=== PATIENT | male | born 1995 | race Caucasian/White ===

== ENCOUNTER 2020-07-25 00:47 | Emergency (ER) | payer MEDICAID ==
[~2020-07-25] VITALS: Ht 193 cm; Wt 90.9 kg
[~2020-07-25 00:47] MED LIST: LURA80TA3 PO; NICO-668 BC; TRAZ-251 PO
[2020-07-25 00:48] VITALS: BP 128/63
[2020-07-25] MEDS ORDERED: OLANZapine 5mg rapidly disint. tablet PO ONE (01:30)
[2020-07-25] MEDS ORDERED: LORazepam 1 MG tablet PO ONE (01:30)
[2020-07-25] MEDS ORDERED: olanzapine 10mg tablet ONE (01:31)
[2020-07-25] MEDS ORDERED: LORazepam 1 MG tablet ONE (01:32)
--- NOTE | 2020-07-25 01:40 | NUR ---
PATIENT UNWILLING TO ANSWER QUESTIONS REQUARDING PURPOSE FOR BEING AT THE HOSPITAL AND NEED FOR MEDICAL/ PSYCHIATRIC CARE.
--- NOTE | 2020-07-25 02:15 | NUR ---
PATIENT REFUSING ALL MEDICATIONS, MD AWARE
[2020-07-25 02:42] LABS: BASOPHILS # (AUTO) 0.1 X10'3 (0-0.2); BASOPHILS % (AUTO) 0.5 % (0-1); EOSINOPHILS % (AUTO) 0.1 % (0-6); HEMATOCRIT 44.7 % (42.0-52.0); HEMOGLOBIN 14.9 g/dl (14.0-17.9); LYMPHOCYTES # (AUTO) 2.4 X10'3 (1.1-4.8); LYMPHOCYTES % (AUTO) 19.2 % (21-51); MEAN CORPUSCULAR HEMOGLOBIN 30.1 PG (27.0-31.0); MEAN CORPUSCULAR HGB CONC 33.3 g/dL (33.0-36.5); MEAN CORPUSCULAR VOLUME 90.2 FL (78-98); MONOCYTES # (AUTO) 0.6 X10'3 (0-0.9); MONOCYTES % (AUTO) 4.8 % (2-12); NEUTROPHILS # (AUTO) 9.5 X10'3 (1.8-7.7); NEUTROPHILS % (AUTO) 75.4 % (42-75); PLATELET COUNT 201 X10'3 (140-440); RED BLOOD COUNT 4.96 X10'6 (4.70-6.10); RED CELL DISTRIBUTION WIDTH 14.2 % (11.5-14.5); WHITE BLOOD COUNT 12.6 X10'3 (4.5-11.0)
[2020-07-25 02:54] LABS: ALANINE AMINOTRANSFERASE 32 U/L (12-78); ALBUMIN 4.6 G/DL (3.4-5.0); ALBUMIN/GLOBULIN RATIO 1.4 (1.1-1.5); ALKALINE PHOSPHATASE 113 IU/L (46-116); ANION GAP 11 (8-16); ASPARTATE AMINO TRANSFERASE 16 U/L (10-37); BILIRUBIN,TOTAL 0.5 MG/DL (0.1-1.0); BLOOD UREA NITROGEN 16 MG/DL (7-18); BUN/CREATININE RATIO 16.3 (5.4-32.0); CHLORIDE 104 MMOL/L (99-107); CREATININE 0.98 MG/DL (0.60-1.10); GLUCOSE 113 MG/DL (70-104); POTASSIUM 3.8 MMOL/L (3.5-5.1); SODIUM 142 MMOL/L (135-145); TOTAL CARBON DIOXIDE 27.2 MMOL/L (24-32); TOTAL PROTEIN 7.8 G/DL (6.4-8.2); eGFR > 90 ML/MIN
[2020-07-25 03:01] LABS: URINE AMPHETAMINE SCREEN NEGATIVE (Neg); URINE BARBITUATE SCREEN NEGATIVE (Neg); URINE BENZODIAZEPINES SCREEN NEGATIVE (Neg); URINE CANNABINOID SCREEN NEGATIVE (Neg); URINE COCAINE SCREEN NEGATIVE (Neg); URINE METHADONE SCREEN NEGATIVE (Neg); URINE OPIATE SCREEN NEGATIVE (Neg); URINE PHENCYCLIDINE SCREEN NEGATIVE (Neg)
[2020-07-25 03:02] LABS: ETHANOL < 0.010 GM/DL (0.0-0.010)
[2020-07-25] MEDS ORDERED: LURA80TA3 PO (04:00)
[2020-07-25] MEDS ORDERED: NO HOME MEDS (04:02)
--- NOTE | 2020-07-25 04:06 | NUR ---
Patient is brought to bed 26 from [facility]. Patient presents with paranoia, patient tells this automatic typewriter inspector that he does not know why he is here. The patient is given a phone call to his boss to tell him that he is in the hospital for a few days and can't come to work. The patient sits straight up in bed, he stares toward the nursing station. The patient is given warm blankets, informed where the bathrooms and nursing station are at, he is given warm blankents. The patient is advised that breakfast is at 0800 hours. He is also advised that he will be evaluated by mental health later in the day.
--- NOTE | 2020-07-25 04:50 | NUR ---
Patient gets out of bed and stands staring at the sleeping patient in bed 25. He was then redirected back to bed. Patient sits and stares at nursing station staff.
--- NOTE | 2020-07-25 05:03 | NUR ---
Patient is now laying supine with his blankets covering him. Patient continues to look around.
--- NOTE | 2020-07-25 05:32 | NUR ---
Important phone numbers: Jae Easton (Patients father.) [phone] [facility], Fruit Harvester Machine OperatorJahaira: [phone]
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
--- NOTE | 2020-07-25 07:00 | NUR ---
PT IS RESTING
--- NOTE | 2020-07-25 08:00 | NUR ---
PT IS RESTING
--- NOTE | 2020-07-25 08:30 | NUR ---
FAXED PACKET TO [facility]
--- NOTE | 2020-07-25 09:00 | NUR ---
PT IS RESTING. NO ISSUES AT THIS TIME
--- NOTE | 2020-07-25 10:00 | NUR ---
PT IS RESTING
--- NOTE | 2020-07-25 11:00 | NUR ---
PT IS RESTING
--- NOTE | 2020-07-25 12:00 | NUR ---
PT IS RESTING
--- NOTE | 2020-07-25 13:00 | NUR ---
PT IS RESTING
--- NOTE | 2020-07-25 14:43 | NUR ---
THERE WAS NO REASON TO KEEP THE PT ON A HOLD. HE DENIES ANY MENTAL HEALTH ISSUES. HE DENIES MEDICATION. HE HAS A RIDE, A HOTEL, A JOB AND MONEY TO SUPPORT HIMSELF.
== END 2020-07-25 14:50 ==
LOC: ER 00:48
DX: F41.9 Anxiety disorder, unspecified (principal); F32.9 Major depressive disorder, single episode, unspecified; F12.90 Cannabis use, unspecified, uncomplicated; F15.90 Other stimulant use, unspecified, uncomplicated
CPT/HCPCS: 36415; 80053; 80305; 80320; 84443; 85025; 99285

== ENCOUNTER 2020-09-13 11:04 | Emergency (ER) | payer MEDICAID ==
[~2020-09-13] VITALS: Ht 188 cm; Wt 84.4 kg
[~2020-09-13 11:04] MED LIST changes: -LURA80TA3 PO; -NICO-668 BC; +NO HOME MEDS; -TRAZ-251 PO
--- NOTE | 2020-09-13 11:16 | NUR ---
ANDIE, POISON CONTROL CONTACTED W/ FOLLOWING POC RECOMMENDATION: MONITOR FOR KIDNEY FAILURE & ACIDOSIS. PERFORM LABS: SERUM OSMOLALITY, CHEM CBC, ASA, TYLENOL, ETOH, UA DRUG & REPEAT IN Q4HRS. ASSESS ORAL CAVITY FOR TRJUILLO. PERFORM PO CHALLENGE. ADMINISTERED IV FLUIDS, ANTIEMETICS APPROPRIATE. Andie WILL FILE PESTICIDE INCIDENT REPORT D/T INGESTION OF BLEACH. SHE WILL F/U IN ~ 1 HR. edmd Fuller AND PRIMARY RN ELIZABETH UPDATED ON DATA.
[2020-09-13 11:29] LABS: BASOPHILS % (AUTO) 0.5 % (0-1); EOSINOPHILS # (AUTO) 0.1 X10'3 (0-0.9); EOSINOPHILS % (AUTO) 0.9 % (0-6); HEMATOCRIT 41.5 % (42.0-52.0); LYMPHOCYTES % (AUTO) 24.5 % (21-51); MEAN CORPUSCULAR HEMOGLOBIN 30.3 PG (27.0-31.0); MEAN CORPUSCULAR HGB CONC 33.7 g/dL (33.0-36.5); MEAN CORPUSCULAR VOLUME 89.8 FL (78-98); MEAN PLATELET VOLUME 8.5 FL (7.4-10.4); MONOCYTES # (AUTO) 0.6 X10'3 (0-0.9); MONOCYTES % (AUTO) 7.7 % (2-12); NEUTROPHILS # (AUTO) 5.5 X10'3 (1.8-7.7); NEUTROPHILS % (AUTO) 66.4 % (42-75); PLATELET COUNT 181 X10'3 (140-440); RED BLOOD COUNT 4.62 X10'6 (4.70-6.10); RED CELL DISTRIBUTION WIDTH 14.4 % (11.5-14.5); WHITE BLOOD COUNT 8.3 X10'3 (4.5-11.0)
--- NOTE | 2020-09-13 11:30 | NUR ---
patient's father Jae called to give information on the patient. The patient has a long history of mental health problems and recently was a patient in our behavioral health unit for 30 days. The patient is non-compliant with his psych. meds and has a history of Paranoid Schizophrenia. The patient is established with [facility]. The father and mother and sister witnessed him attempting to drink what the patient said was Bleach, Brake Fluid, Alcohol, Energy Drinks and Cold pills. The father removed a box storage worker from his hand. The father said the patient is a danger to himself and others. To reach the father his cell is [phone], and the mother Leigh's cell is [phone]
--- NOTE | 2020-09-13 11:41 | NUR ---
Per Poison control recommendations, the patient was given water to drink for a PO challenge. Pt tolerated a few sips of the water but reports it tastes like alcohol and is only willing to drink a few sips.
[2020-09-13 11:44] LABS: ALANINE AMINOTRANSFERASE 21 U/L (12-78); ALBUMIN 4.3 G/DL (3.4-5.0); ALBUMIN/GLOBULIN RATIO 1.3 (1.1-1.5); ALKALINE PHOSPHATASE 103 IU/L (46-116); ANION GAP 12 (8-16); ASPARTATE AMINO TRANSFERASE 21 U/L (10-37); BILIRUBIN,TOTAL 0.7 MG/DL (0.1-1.0); BLOOD UREA NITROGEN 13 MG/DL (7-18); CALCIUM 8.9 MG/DL (8.5-10.1); CHLORIDE 103 MMOL/L (99-107); CREATININE 1.08 MG/DL (0.60-1.10); ETHANOL 0.013 GM/DL (0.0-0.010); GLUCOSE 101 MG/DL (70-104); POTASSIUM 3.6 MMOL/L (3.5-5.1); SODIUM 140 MMOL/L (135-145); TOTAL CARBON DIOXIDE 25.3 MMOL/L (24-32); TOTAL PROTEIN 7.5 G/DL (6.4-8.2); eGFR 85 ML/MIN
--- NOTE | 2020-09-13 11:49 | NUR ---
oral assessment performed along with swallow assessment. Oral cavity wnl; no ulcerations, discoloration or drooling noted at this time.
[2020-09-13 12:16] LABS: OSMOLALITY 293 MOSM/K (280-300)
[2020-09-13 12:20] LABS: ACETAMINOPHEN < 2.0 UG/ML (10-30)
--- NOTE | 2020-09-13 12:45 | NUR ---
REPORT RECEIVED, CARE ASSUMED OF PT WITH RECENT HX OF MULTI CHEMICAL INJESTION. PT AMBULATED FROM ER 14 TO OF24 WITHOUT ASSISTANCE OR DIFFICULTY. PT "FLOPPED" ONTO THE OF BED AND PULLED THE COVERS UP OVER HIS HEAD. PT PLACED ON A MONITOR FOR OBSERVATION. VSS CURRENTLY AND PT HAS NO COMPLAINTS.
--- NOTE | 2020-09-13 16:13 | NUR ---
POISON CONTROL CALLED FOR STATUS UPDATE. INFORMED THAT PT'S VS AND INITIAL LABS WERE WNL. IT WAS REQUESTED THAT A REPETE OF CMP, ETHANOL AND OSMOLALITY BE REPEATED DANELLE. REPEAT LABS ORDERED.
--- NOTE | 2020-09-13 16:15 | NUR ---
PT SITTING IN BED, LAUGHING AND REFUSING TO PROVIDE A URINE SAMPLE. PT INFORMED THAT HE CAN NOT BE MEDICALLY CLEARED AND SEEN BY [facility] UNTILS A URINE SAMPLE IS OBTAINED. PT REQUESTED WATER WHICH WAS POVIDED.
[2020-09-13 17:09] LABS: URINE AMPHETAMINE SCREEN NEGATIVE (Neg); URINE BARBITUATE SCREEN NEGATIVE (Neg); URINE BENZODIAZEPINES SCREEN NEGATIVE (Neg); URINE CANNABINOID SCREEN NEGATIVE (Neg); URINE COCAINE SCREEN NEGATIVE (Neg); URINE METHADONE SCREEN NEGATIVE (Neg); URINE OPIATE SCREEN NEGATIVE (Neg); URINE PHENCYCLIDINE SCREEN NEGATIVE (Neg)
[2020-09-13 17:27] LABS: OSMOLALITY 291 MOSM/K (280-300)
[2020-09-13 17:30] LABS: ALANINE AMINOTRANSFERASE 24 U/L (12-78); ALBUMIN/GLOBULIN RATIO 1.3 (1.1-1.5); ALKALINE PHOSPHATASE 102 IU/L (46-116); ANION GAP 7 (8-16); ASPARTATE AMINO TRANSFERASE 18 U/L (10-37); BILIRUBIN,TOTAL 0.5 MG/DL (0.1-1.0); BLOOD UREA NITROGEN 12 MG/DL (7-18); BUN/CREATININE RATIO 11.2 (5.4-32.0); CALCIUM 8.6 MG/DL (8.5-10.1); CHLORIDE 104 MMOL/L (99-107); CREATININE 1.07 MG/DL (0.60-1.10); GLUCOSE 96 MG/DL (70-104); POTASSIUM 3.9 MMOL/L (3.5-5.1); SODIUM 139 MMOL/L (135-145); TOTAL CARBON DIOXIDE 28.3 MMOL/L (24-32); TOTAL PROTEIN 7.1 G/DL (6.4-8.2); eGFR 86 ML/MIN
[2020-09-13 17:39] LABS: ETHANOL < 0.010 GM/DL (0.0-0.010)
--- NOTE | 2020-09-13 17:39 | NUR ---
PT SLEEPING, NO S/S OF DISTRESS NOTED.
--- NOTE | 2020-09-13 18:29 | NUR ---
PT'S FATHER, BIBI, CALLED FOR UPDATE AND TO PROVIDE ADDITIONAL INFORMATION. PT HAS GIVEN PERMISSION TO PROVIDE PARENTS WITH INFORMATION REGARDING HIS STATUS. PT'S FATHER STATES THAT PT WAS FOUND WITH VARIOUS BOTTLES POISONIOUS LIQUIDS; BLEACH, ISOPROPAL ALCOHOL, BRAKE FLUID. FATHER STATED THAT HE FOUND HIM HOLDING A GLASS OF BLEACH WHICH HE SPILLED ALL OVER HIM. FATHER FEELS PT IS A DANGER TO HIMSELF AND OTHERS. FATHER ALSO STATED THAT THEY HAD TO REMOVE A EXCAVATOR BACKHOE OPERATOR FROM THE PT'S POSESSION. SHOULD PT BE DISCHARGED, FATHER STATED THAT THE PT WILL NOT BE ALLOWED TO COME HOME DUE TO THEY HAVE AN UNDERAGE CHILD LIVING IN THE HOME. PT IS HOMELESS AND CURRENTLY LIVES AT THE [facility]. CONTACT INFO: MAYI (FATHER) [phone] SALMA (MOTHER) [phone]
--- NOTE | 2020-09-13 18:49 | NUR ---
Ceasar called from poison control. New labs were reviewed. No notable changes in patient condition or labs. Poison control is satisfied, they will sign off on the case at this time.
--- NOTE | 2020-09-13 19:02 | NUR ---
Pt packet faxed to [facility]
--- NOTE | 2020-09-13 19:37 | NUR ---
Patient is resting quietly, low fowlers position. Patient is cooperative with staff. Patient is eating a meal. In direct view from the nursing station.
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
--- NOTE | 2020-09-13 20:18 | NUR ---
Patient is now sleeping. Low fowlers in bed. He self repositions in bed. Direct view from nursing station.
--- NOTE | 2020-09-13 21:48 | NUR ---
Patient is sleeping low fowlers in bed on his left side.
--- NOTE | 2020-09-13 22:58 | NUR ---
Patient awakens, drinks water, Returns to sleep.
--- NOTE | 2020-09-14 01:31 | NUR ---
Patient is sleeping on his left side with his blanket pulled over his head.
--- NOTE | 2020-09-14 03:48 | NUR ---
Patient is sleeping, low fowlers position.
--- NOTE | 2020-09-14 04:58 | NUR ---
Patient is sleeping on his left side. No distress.
[2020-09-14 05:57] VITALS: BP 115/55
--- NOTE | 2020-09-14 08:17 | NUR ---
PT UP EATING BREAKFAST.
--- NOTE | 2020-09-14 09:40 | NUR ---
SPOKE WITH FATHER MAYI WHO CALLED [phone]. ADVISED HIM [facility] JUST SPOE WITH PT AND HE WOULD CALL MAYI TO UPDATE ON POC.
--- NOTE | 2020-09-14 12:11 | NUR ---
REPORT TO DEMIAN ASHER FOR POSSIBLE PLACEMENT.
--- NOTE | 2020-09-14 13:05 | NUR ---
[facility] CALLED AND STATED PATIENT HAS BEEN ACCEPTED AND RIDE WILL BE HERE IN 15 MINUTES.
--- NOTE | 2020-09-14 13:28 | NUR ---
PATIENT DC WITH TRANSPORT TO [facility], ESCORTED AND POCKETS CHECKED BY SECURITY.
== END 2020-09-14 13:30 ==
LOC: ER 11:04
DX: T14.91XA Suicide attempt, initial encounter (principal); F19.10 Other psychoactive substance abuse, uncomplicated; F32.9 Major depressive disorder, single episode, unspecified; F20.9 Schizophrenia, unspecified; F12.90 Cannabis use, unspecified, uncomplicated; F15.90 Other stimulant use, unspecified, uncomplicated; X58.XXXA Exposure to other specified factors, initial encounter; Y93.89 Activity, other specified; Y92.89 Other specified places as the place of occurrence of the external cause; Y99.8 Other external cause status
CPT/HCPCS: 36415; 80053; 80305; 80320; 80329; 83930; 84443; 85025; 93005; 99285

== ENCOUNTER 2020-11-28 15:41 | Emergency (ER) | payer MEDICAID ==
[~2020-11-28] VITALS: Ht 195.6 cm; Wt 97.7 kg
[2020-11-28 16:34] VITALS: BP 130/71
--- NOTE | 2020-11-28 18:52 | NUR ---
PA FROM MENTAL HEALTH TALKING WITH PATIENT
--- NOTE | 2020-11-28 19:00 | NUR ---
PATIENT COMPLETELY NON COOPERATIVE WITH MENTAL HEALTH PA. PATIENT EDUCATED ABOUT SUGGESTED MEDICATIONS SUCH TRILEPTAL AND VRAYLAR INCLUDING SIDE EFFECTS. PATIENT DOES NOT ACCEPT ANY MENTAL HEALTH DIAGNOSIS EXCEPT ANXIETY. OR "SOME BULLSHIT" PATIENT ASKING TO BE PRESCRIBED ATIVAN OR PROZAC WHICH THE MENTAL HEALTH PA WILL NOT PRESCRIBE BECAUSE THEY THEY ARE NOT INDICATED AND OR ADDICTIVE. PATIENT RAISED HIS VOICE AND WAS POSTURING DEFNSIVELY DURING THE WHOLE DISCUSSION. THE PA OFFERED TO HELP HIM MANY TIMES BUT THE PATIENT REFUSED TO HELP HIMSELF. PATIENT STATES THAT HE CAME HERE TO THE ER TO GET PUT ON SOME MEDICATION BECAUSE THE [facility] FROM TOLD HIM TO. PATIENT STATED THAT HE WILL JUST TRY TO GO BACK TO [facility]. PATIENT STATES THAT WHEN HE LAST GOT [facility] OF [facility] HE WAS PLACED ON LATUDA AND "ALL THEY WERE TRYING TO DO WAS CHEMICALLT CASTRATE ME"
--- NOTE | 2020-11-28 19:22 | NUR ---
PATIENT BELIEVES THAT MENTAL HEALTH PEOPLE ARE "TRYING TO CHEMICALLY CASTRATE ME"
--- NOTE | 2020-11-28 19:27 | NUR ---
PATIENT ASKED FOR LABWORK: FOR HIV AND HEPATITIS. I ASKED DR MCNALLY. NO ORDER FOR LABWORK.
--- NOTE | 2020-11-28 19:30 | NUR ---
PATIENT REFUSED TO ALLOW DISCHARGE VITALS OR ANY VITALS TO BE TAKEN IN ER FASTR[facility]. PATIENT REFUSED TO SIGN DISCHARGE PAPERWORK. DISCHARGE WAS WITNESSED BY DARREL ABRAMS. PATIENT PROVIDED LIST OF MENTAL HEALTH PROVIDERS AND PATIENT ENCOURAGED TO CALL OR STOP BY. PATIENT TOOK DISCHARGE PAPERWORK. DR MCNLALY AWARE OF DISCUSSION WITH PA AND PA IS NOT RECOMMENDING ANY MEDICATIONS DUE TO PATIENT'S UNWILLNESS TO TAKE RECOMMENDED MEDICATIONS. PATIENT AMBUALTED OUT OF ER WNL.
== END 2020-11-28 19:30 | disposition home or self-care (01) ==
LOC: ER 15:42
DX: Z02.89 Encounter for other administrative examinations (principal); F41.9 Anxiety disorder, unspecified; R45.4 Irritability and anger; F32.9 Major depressive disorder, single episode, unspecified; F20.9 Schizophrenia, unspecified; F17.200 Nicotine dependence, unspecified, uncomplicated; F12.90 Cannabis use, unspecified, uncomplicated; F15.90 Other stimulant use, unspecified, uncomplicated; Z72.89 Other problems related to lifestyle
CPT/HCPCS: 99284

== ENCOUNTER 2021-01-12 11:14 | Emergency (ER) | payer MEDICAID ==
[~2021-01-12] VITALS: Ht 190.5 cm; Wt 77.4 kg
[2021-01-12 11:17] VITALS: BP 109/60
[2021-01-12] MEDS ORDERED: TERB250T4 PO (11:38)
[2021-01-13] MEDS ORDERED: ACET-2119 PO (17:10)
== END 2021-01-12 11:56 | disposition home or self-care (01) ==
LOC: ER 11:14
DX: B35.3 Tinea pedis (principal); F12.90 Cannabis use, unspecified, uncomplicated; F15.90 Other stimulant use, unspecified, uncomplicated; Z72.89 Other problems related to lifestyle; Z59.0 Homelessness; Z79.899 Other long term (current) drug therapy
CPT/HCPCS: 99283

== ENCOUNTER 2021-01-13 16:28 | Emergency (ER) | payer MEDICAID ==
[~2021-01-13 16:28] MED LIST changes: +TERB250T4 PO
[2021-01-13 16:35] VITALS: BP 136/67
[2021-01-13] MEDS ORDERED: ACET-2119 PO (17:10)
== END 2021-01-13 17:44 | disposition home or self-care (01) ==
LOC: ER 16:28
DX: B35.3 Tinea pedis (principal); F12.90 Cannabis use, unspecified, uncomplicated; F15.90 Other stimulant use, unspecified, uncomplicated; Z72.89 Other problems related to lifestyle; Z79.899 Other long term (current) drug therapy
CPT/HCPCS: 99282

== ENCOUNTER 2021-02-02 01:28 | Inpatient (IN) | payer MEDICAID, OTHER ==
[2021-02-02] VITALS (15 sets, daily range): BP systolic 102–129; BP diastolic 36–78
[~2021-02-02] VITALS: Ht 190.5 cm; Wt 78.2 kg
[~2021-02-02 01:28] MED LIST changes: -TERB250T4 PO
[2021-02-02] MEDS ORDERED: acetaminophen 325mg tablet PO ONE (01:30)
--- NOTE | 2021-02-02 01:39 | NUR ---
CALLED [facility] AT [address]
[2021-02-02] MEDS ORDERED: normal saline 1000ml 1,000 ML IVB ONE (01:45)
--- NOTE | 2021-02-02 02:33 | NUR ---
US AT BEDSIDE CONDUCTING US PATIENT UNABLE TO VOID
[2021-02-02] MEDS ORDERED: normal saline 1000ml 1,000 ML IV ONE (02:40)
[2021-02-02] MEDS ORDERED: morphine 4 MG/ML inj SYRINge IV ONE ×3 (02:40→05:55)
[2021-02-02] MEDS ORDERED: normal saline 1000ML IV soln IVB ONE (02:40)
[2021-02-02] MEDS ORDERED: levoFLOXACIN-Levaquin 500mg/D5 100 ML IV ONE (02:40)
[2021-02-02] MEDS ORDERED: ondansetron/PF 4mg/2ml inj IV ONE ×3 (02:40→05:55)
[2021-02-02 02:44] LABS: BASOPHILS % (AUTO) 0.3 % (0-1); EOSINOPHILS # (AUTO) 0.1 X10'3 (0-0.9); EOSINOPHILS % (AUTO) 0.9 % (0-6); HEMATOCRIT 41.4 % (42.0-52.0); MEAN CORPUSCULAR HEMOGLOBIN 29.5 PG (27.0-31.0); MEAN CORPUSCULAR HGB CONC 33.7 g/dL (33.0-36.5); MEAN CORPUSCULAR VOLUME 87.4 FL (78-98); MEAN PLATELET VOLUME 9.1 FL (7.4-10.4); MONOCYTES % (AUTO) 8.3 % (2-12); NEUTROPHILS # (AUTO) 8.3 X10'3 (1.8-7.7); NEUTROPHILS % (AUTO) 66.5 % (42-75); PLATELET COUNT 178 X10'3 (140-440); RED BLOOD COUNT 4.74 X10'6 (4.70-6.10); RED CELL DISTRIBUTION WIDTH 13.2 % (11.5-14.5); WHITE BLOOD COUNT 12.5 X10'3 (4.5-11.0)
[2021-02-02] MEDS ORDERED: acetaminophen 325mg tablet PO PRN (02:50)
[2021-02-02] MEDS ORDERED: mag hydrox/Alum hydrox/simeth 30ml oral suspension PO PRN (02:50)
[2021-02-02] MEDS ORDERED: magnesium hydroxide 30ml (MOM) UD suspension PO PRN (02:50)
[2021-02-02] MEDS ORDERED: magnesium Cl slow-release 64mg tablet PO PRN (02:50)
[2021-02-02] MEDS ORDERED: magnesium 2GM in 50ml NS 50 ML IV PRN (02:50)
[2021-02-02] MEDS ORDERED: potassium Cl 40MEQ/1/2NS 520ml 520 ML IV PRN ×2 (02:50)
[2021-02-02] MEDS ORDERED: ondansetron/PF 4mg/2ml inj IV PRN ×2 (02:50→08:40)
[2021-02-02] MEDS ORDERED: magnesium 4gm in 100ml NS 100 ML IV PRN (02:50)
[2021-02-02] MEDS ORDERED: potassium Cl 20 mEq SR tablet PO PRN ×2 (02:50)
[2021-02-02 02:57] LABS: ALANINE AMINOTRANSFERASE 46 U/L (12-78); ALBUMIN 3.9 G/DL (3.4-5.0); ALKALINE PHOSPHATASE 91 IU/L (46-116); ANION GAP 11 (8-16); ASPARTATE AMINO TRANSFERASE 18 U/L (10-37); BILIRUBIN,TOTAL 0.8 MG/DL (0.1-1.0); BLOOD UREA NITROGEN 11 MG/DL (7-18); BUN/CREATININE RATIO 11.2 (5.4-32.0); CALCIUM 9.2 MG/DL (8.5-10.1); CHLORIDE 101 MMOL/L (99-107); CREATININE 0.98 MG/DL (0.60-1.10); GLUCOSE 99 MG/DL (70-104); POTASSIUM 3.9 MMOL/L (3.5-5.1); SODIUM 139 MMOL/L (135-145); TOTAL CARBON DIOXIDE 26.6 MMOL/L (24-32); TOTAL PROTEIN 7.7 G/DL (6.4-8.2); eGFR > 90 ML/MIN
[2021-02-02 03:44] LABS: CLARITY,URINE CLEAR (Clear); COLOR,URINE YELLOW (Yellow); GLUCOSE, URINE NEGATIVE (Neg); KETONES,URINE NEGATIVE (Neg); LEUKOCYTE ESTERASE ,URINE NEGATIVE (Neg); NITRITES, URINE NEGATIVE (Neg); OCCULT BLOOD,URINE NEGATIVE (Neg); PH,URINE 6.5 (4.8-8.0); PROTEIN,URINE NEGATIVE (Neg)
[2021-02-02 03:54] LABS: UA COLLECTION TYPE CLN CATCH MIDSTREAM
[2021-02-02] MEDS ORDERED: bacitracin 15gm ointment TP ONE (07:16)
[2021-02-02] MEDS ORDERED: BUPIVAcaine 0.5% inj/PF 30 ML ONE (07:16)
[2021-02-02] MEDS: K and/or MAG REPLACEMENT MC SCH ×2 (07:41→20:00)
--- NOTE | 2021-02-02 08:34 | NUR ---
OR AT 0900
[2021-02-02] MEDS ORDERED: meperidine/PF 25mg/ml syringe IV PRN ×3 (08:40)
[2021-02-02] MEDS ORDERED: proCHLORperazine 10 MG/2 ml inj IV PRN (08:40)
[2021-02-02] MEDS ORDERED: morphine 2 MG/ML inj. syringe IV PRN (08:40)
[2021-02-02] MEDS ORDERED: ringers solution, lacted 1,000 ML IV SCH (08:40)
[2021-02-02] MEDS ORDERED: morphine 4 MG/ML inj SYRINge IV PRN (08:40)
--- NOTE | 2021-02-02 08:49 | NUR ---
TRANSPORTED TO OR
[2021-02-02] MEDS ORDERED: midazolam 1 mg/ML 2ml injection ONE (09:37)
[2021-02-02] MEDS ORDERED: fentaNYL/PF 50MCG/1 ML 2ML syringe ONE (09:37)
[2021-02-02] MEDS ORDERED: propofol inj 20 ML IV ONE (09:46)
[2021-02-02] MEDS ORDERED: dexamethasone sod phosphate 4mg/ml inj. ONE (09:47)
[2021-02-02] MEDS ORDERED: LIDOcaine 2% (20mg/ml) 5ml vial ONE (09:47)
[2021-02-02] MEDS ORDERED: BUPIVAcaine 0.25% w/Epi /PF 30ml vial ONE (09:52)
--- NOTE | 2021-02-02 10:25 | NUR ---
Received from OR via ANAMARIA , accompanied by Anesthesiologist SHAUNA and report given by Anesthesiolgist. PATIENT WITH 20G PIV IN LEFT FOREARM RUNNING LR AT 100. DENIES PAIN. 10L MASK ON WITH 100% SATURATION. Addendum: 02/02/21 at 1031 by Brayan Means RN, RN Amended: Links added.
--- NOTE | 2021-02-02 10:49 | NUR ---
Patient in room ORTHO 4016. I have received report from DARREL GARZA FROM [facility] and had the opportunity to ask questions and assume patient care.
--- NOTE | 2021-02-02 11:05 | NUR ---
ALL CRITERIA FOR TRANSFER TO THE FLOOR HAS BEEN ACHIEVED. REPORT GIVEN AND ALL QUESTIONS ANSWERED, VSS. BED LOW 2 RAILS UP, CALL LIGHT PRESENT AND PATIENT HOOKED UP TO ALL LINES AND VSS. PATIENTS RN PRESENT TO ACCEPT CARE. GUARD PRESENT, AIDE PRESENT AND RN PRESENT TO ACCEPT CARE. PATIENT STILL IN SHACKLES AND PAIN AT A TOLERABLE LEVEL. VSS. Addendum: 02/02/21 at 1109 by Brayan Valverde - DARREL RN Amended: Links added.
--- NOTE | 2021-02-02 18:30 | NUR ---
Patient in room ORTHO 4016. I have received report from Mayelin ROJO and had the opportunity to ask questions and assume patient care.
--- NOTE | 2021-02-02 18:56 | NUR ---
Problems reprioritized. Patient report given, questions answered & plan of care reviewed with DARREL BALL.
[2021-02-02] MEDS: morphine 2 MG/ML inj. syringe IV PRN (20:39)
[2021-02-03 02:00] VITALS: BP 106/58
[2021-02-03] MEDS: morphine 2 MG/ML inj. syringe IV PRN ×3 (02:36→14:26)
[2021-02-03 05:00] VITALS: BP 99/39
--- NOTE | 2021-02-03 06:30 | NUR ---
Problems reprioritized. Patient report given, questions answered & plan of care reviewed with Mimi ROJO & Marixa AUSTIN.
[2021-02-03 07:28] LABS: ALANINE AMINOTRANSFERASE 38 U/L (12-78); ALBUMIN 3.2 G/DL (3.4-5.0); ALBUMIN/GLOBULIN RATIO 0.9 (1.1-1.5); ALKALINE PHOSPHATASE 80 IU/L (46-116); ANION GAP 9 (8-16); ASPARTATE AMINO TRANSFERASE 13 U/L (10-37); BILIRUBIN,TOTAL 0.4 MG/DL (0.1-1.0); BLOOD UREA NITROGEN 12 MG/DL (7-18); BUN/CREATININE RATIO 17.4 (5.4-32.0); CALCIUM 9.1 MG/DL (8.5-10.1); CHLORIDE 105 MMOL/L (99-107); CREATININE 0.69 MG/DL (0.60-1.10); GLUCOSE 140 MG/DL (70-104); MAGNESIUM 2.2 MG/DL (1.5-2.4); POTASSIUM 4.1 MMOL/L (3.5-5.1); SODIUM 140 MMOL/L (135-145); TOTAL CARBON DIOXIDE 26.3 MMOL/L (24-32); TOTAL PROTEIN 6.7 G/DL (6.4-8.2); eGFR > 90 ML/MIN
[2021-02-03 07:42] LABS: BASOPHILS % (AUTO) 0.1 % (0-1); EOSINOPHILS % (AUTO) 0 % (0-6); HEMATOCRIT 36.2 % (42.0-52.0); HEMOGLOBIN 12.3 g/dl (14.0-17.9); LYMPHOCYTES # (AUTO) 1.5 X10'3 (1.1-4.8); LYMPHOCYTES % (AUTO) 8.9 % (21-51); MEAN CORPUSCULAR HEMOGLOBIN 29.4 PG (27.0-31.0); MEAN CORPUSCULAR HGB CONC 33.9 g/dL (33.0-36.5); MEAN CORPUSCULAR VOLUME 86.6 FL (78-98); MEAN PLATELET VOLUME 9.1 FL (7.4-10.4); MONOCYTES % (AUTO) 6.1 % (2-12); NEUTROPHILS # (AUTO) 14.2 X10'3 (1.8-7.7); NEUTROPHILS % (AUTO) 84.9 % (42-75); PLATELET COUNT 190 X10'3 (140-440); RED BLOOD COUNT 4.17 X10'6 (4.70-6.10); RED CELL DISTRIBUTION WIDTH 13.2 % (11.5-14.5); WHITE BLOOD COUNT 16.7 X10'3 (4.5-11.0)
[2021-02-03] MEDS: K and/or MAG REPLACEMENT MC SCH (08:00)
[2021-02-03 10:00] VITALS: BP 103/54
[2021-02-03] MEDS ORDERED: IBUP-1986 PO (12:18)
--- NOTE | 2021-02-03 12:33 | NUR ---
PAGER ID: [phone] MESSAGE: Chan Leslie [phone]; WBCs are 16.7 from previous 12.5. Only one Levaquin given. No discharge antibiotic. Please call to clarify. NORMAN Calvin. [phone].
[2021-02-03] MEDS ORDERED: CIPR-202 PO (12:54)
--- NOTE | 2021-02-03 14:27 | NUR ---
Discharge paperwork reviewed with pt. Discussed discharge medications and [facility] up [facility]. Discussed with geological technical officer. IV DC'd, cannula intact, no/s/sx bleeding noted, pressure bandage applied. S/Sx infection and methods of infection control discussed with pt. [facility] provides transport with pt.
== END 2021-02-03 14:40 | DRG 712 ==
LOC: EEVIPCON 01:29 → ER 01:29 → ED HOLD 02:48 → ORTHO 4S 11:27
PROVIDERS: ADMIT Family Medicine; ATTEND Family Medicine
PROC: 0VBB0ZZ Excision of Left Testis, Open Approach (ICD-10-PCS; principal; 2021-02-02 09:32)
DX: N44.00 Torsion of testis, unspecified (principal); F41.9 Anxiety disorder, unspecified; F32.9 Major depressive disorder, single episode, unspecified; F20.9 Schizophrenia, unspecified; F12.90 Cannabis use, unspecified, uncomplicated; F15.90 Other stimulant use, unspecified, uncomplicated; Z20.822 Contact with and (suspected) exposure to COVID-19
CPT/HCPCS: 36415; 76870; 80053; 81003; 83735; 85025; 87081; 87426; 99285; A4618; A6253; A6449; A7000; G0378; J1100; J1956; J2001; J2250; J2270; J2405; J2704; J3010; J7030; J7120

== ENCOUNTER 2021-02-10 22:44 | Emergency (ER) | payer MEDICAID, OTHER ==
[~2021-02-10] VITALS: Ht 182.9 cm; Wt 77.2 kg
[~2021-02-10 22:44] MED LIST changes: +CIPR-202 PO; +IBUP-1986 PO; -NO HOME MEDS
[2021-02-10 22:52] VITALS: BP 120/72
== END 2021-02-10 23:50 | disposition home or self-care (01) ==
LOC: ER 22:45
DX: Z48.01 Encounter for change or removal of surgical wound dressing (principal); F41.9 Anxiety disorder, unspecified; F32.9 Major depressive disorder, single episode, unspecified; F20.9 Schizophrenia, unspecified; F12.90 Cannabis use, unspecified, uncomplicated; F15.90 Other stimulant use, unspecified, uncomplicated; Z72.89 Other problems related to lifestyle; Z79.899 Other long term (current) drug therapy
CPT/HCPCS: 99282

== ENCOUNTER 2021-02-10 23:49 | Emergency (ER) | payer MEDICAID, OTHER ==
[2021-02-12] MEDS ORDERED: CEPH-585 PO (12:44)
[2021-02-12] MEDS ORDERED: DOXY100C2 PO (12:44)
[2021-02-12] MEDS ORDERED: HYDR-3965 PO (12:44)
== END 2021-02-11 00:04 | disposition left against medical advice (07) ==
LOC: ER 23:50
DX: Z00.00 Encounter for general adult medical examination without abnormal findings (principal); Z53.21 Procedure and treatment not carried out due to patient leaving prior to being seen by health care provider

== ENCOUNTER 2021-02-12 08:36 | Emergency (ER) | payer MEDICAID ==
[~2021-02-12] VITALS: Ht 190.5 cm; Wt 75.5 kg
[2021-02-12 09:05] VITALS: BP 123/70
[2021-02-12] MEDS ORDERED: morphine 4 MG/ML inj SYRINge IV ONE (09:35)
[2021-02-12 10:57] LABS: BASOPHILS # (AUTO) 0.1 X10'3 (0-0.2); BASOPHILS % (AUTO) 0.8 % (0-1); EOSINOPHILS # (AUTO) 0.1 X10'3 (0-0.9); EOSINOPHILS % (AUTO) 1.2 % (0-6); HEMATOCRIT 35.9 % (42.0-52.0); HEMOGLOBIN 12.1 g/dl (14.0-17.9); LYMPHOCYTES # (AUTO) 2.4 X10'3 (1.1-4.8); LYMPHOCYTES % (AUTO) 21.2 % (21-51); MEAN CORPUSCULAR HEMOGLOBIN 29.5 PG (27.0-31.0); MEAN CORPUSCULAR HGB CONC 33.6 g/dL (33.0-36.5); MEAN CORPUSCULAR VOLUME 87.6 FL (78-98); MEAN PLATELET VOLUME 7.9 FL (7.4-10.4); MONOCYTES # (AUTO) 0.9 X10'3 (0-0.9); MONOCYTES % (AUTO) 7.6 % (2-12); NEUTROPHILS # (AUTO) 7.9 X10'3 (1.8-7.7); NEUTROPHILS % (AUTO) 69.2 % (42-75); PLATELET COUNT 185 X10'3 (140-440); RED BLOOD COUNT 4.09 X10'6 (4.70-6.10); RED CELL DISTRIBUTION WIDTH 13.5 % (11.5-14.5); WHITE BLOOD COUNT 11.4 X10'3 (4.5-11.0)
[2021-02-12 11:23] LABS: ALANINE AMINOTRANSFERASE 50 U/L (12-78); ALBUMIN 3.1 G/DL (3.4-5.0); ALKALINE PHOSPHATASE 78 IU/L (46-116); ANION GAP 9 (8-16); ASPARTATE AMINO TRANSFERASE 30 U/L (10-37); BILIRUBIN,TOTAL 0.5 MG/DL (0.1-1.0); BLOOD UREA NITROGEN 17 MG/DL (7-18); BUN/CREATININE RATIO 12.5 (5.4-32.0); CALCIUM 8.6 MG/DL (8.5-10.1); CHLORIDE 109 MMOL/L (99-107); CREATININE 1.36 MG/DL (0.60-1.10); GLUCOSE 108 MG/DL (70-104); POTASSIUM 4.4 MMOL/L (3.5-5.1); SODIUM 145 MMOL/L (135-145); TOTAL CARBON DIOXIDE 26.8 MMOL/L (24-32); TOTAL PROTEIN 6.2 G/DL (6.4-8.2); eGFR 65 ML/MIN
[2021-02-12] MEDS ORDERED: DOXYCYCLINE 100MG CAPSULE PO STA (12:21)
[2021-02-12] MEDS ORDERED: cephalexin 250mg capsule PO ONE (12:25)
[2021-02-12] MEDS ORDERED: CEPH-585 PO (12:44)
[2021-02-12] MEDS ORDERED: HYDR-3965 PO (12:44)
[2021-02-12] MEDS ORDERED: DOXY100C2 PO (12:44)
[2021-02-12] MEDS ORDERED: HYDROcodone/acetaminophen 5mg/325mg tablet PO ONE (13:05)
== END 2021-02-12 13:24 | disposition home or self-care (01) ==
LOC: ER 08:36
DX: N50.82 Scrotal pain (principal); F41.9 Anxiety disorder, unspecified; F32.9 Major depressive disorder, single episode, unspecified; F20.9 Schizophrenia, unspecified; F12.90 Cannabis use, unspecified, uncomplicated; F15.90 Other stimulant use, unspecified, uncomplicated; Z98.890 Other specified postprocedural states; Z72.89 Other problems related to lifestyle; Z79.2 Long term (current) use of antibiotics; Z79.899 Other long term (current) drug therapy
CPT/HCPCS: 36415; 76870; 80053; 84145; 85025; 93976; 96374; 99284; J2270

== ENCOUNTER 2021-02-14 12:32 | Emergency (ER) | payer MEDICAID ==
[~2021-02-14] VITALS: Ht 193 cm; Wt 77.3 kg
[~2021-02-14 12:32] MED LIST changes: +CEPH-585 PO; +DOXY100C2 PO; +HYDR-3965 PO
[2021-02-14 12:35] VITALS: BP 127/55
--- NOTE | 2021-02-14 14:58 | NUR ---
Pt agitated. Requesting phone, and asking when a second provider will be with him to provide a "second opinion".
--- NOTE | 2021-02-14 15:09 | NUR ---
MD Bonilla at bedside
--- NOTE | 2021-02-14 15:20 | NUR ---
Pt becoming increasingly agitated. Yelling out. Yelled out that "this" was because he's "brown". Pt then yelling that he "wants a black doctor".
--- NOTE | 2021-02-14 15:40 | NUR ---
Pt left sleeping bag in room. Called registration to ask if pt was still in the lobby, and he was. Registration and security both asked pt if he wanted his sleeping bag. Pt told them that he did not want it and wanted us to throw it in the garbage.
== END 2021-02-14 15:28 | disposition home or self-care (01) ==
LOC: ER 12:33
DX: L08.89 Other specified local infections of the skin and subcutaneous tissue (principal); F41.9 Anxiety disorder, unspecified; F32.9 Major depressive disorder, single episode, unspecified; F20.9 Schizophrenia, unspecified; F12.90 Cannabis use, unspecified, uncomplicated; F15.90 Other stimulant use, unspecified, uncomplicated; Z98.890 Other specified postprocedural states; Z48.00 Encounter for change or removal of nonsurgical wound dressing; Z72.89 Other problems related to lifestyle; Z79.2 Long term (current) use of antibiotics; Z79.899 Other long term (current) drug therapy
CPT/HCPCS: 99283

== ENCOUNTER 2021-02-22 01:25 | Emergency (ER) | payer MEDICAID ==
[~2021-02-22] VITALS: Ht 190.5 cm; Wt 68.2 kg
[~2021-02-22 01:25] MED LIST changes: -CEPH-585 PO; -DOXY100C2 PO; -HYDR-3965 PO
[2021-02-22 01:31] VITALS: BP 137/83
--- NOTE | 2021-02-22 01:38 | NUR ---
gave him a basin of warm water, wash clothes and a towel and lip moisturizer.
[2021-02-22] MEDS ORDERED: acetaminophen 325mg tablet PO ONE (01:45)
--- NOTE | 2021-02-22 01:47 | NUR ---
blisters x 2 and open blister x 1 and socks wet.
== END 2021-02-22 01:58 | disposition home or self-care (01) ==
LOC: ER 01:25
DX: S90.822A Blister (nonthermal), left foot, initial encounter (principal); S90.821A Blister (nonthermal), right foot, initial encounter; F41.9 Anxiety disorder, unspecified; F32.9 Major depressive disorder, single episode, unspecified; F20.9 Schizophrenia, unspecified; F12.90 Cannabis use, unspecified, uncomplicated; F15.90 Other stimulant use, unspecified, uncomplicated; Z72.89 Other problems related to lifestyle; Z98.890 Other specified postprocedural states; Z79.899 Other long term (current) drug therapy; X58.XXXA Exposure to other specified factors, initial encounter; Y93.89 Activity, other specified; Y92.89 Other specified places as the place of occurrence of the external cause; Y99.8 Other external cause status
CPT/HCPCS: 99282

== ENCOUNTER 2021-03-16 10:01 | Emergency (ER) | payer MEDICAID ==
[~2021-03-16] VITALS: Ht 182.9 cm; Wt 80.8 kg
[~2021-03-16 10:01] MED LIST changes: -CIPR-202 PO
--- NOTE | 2021-03-16 10:39 | NUR ---
pt is calm and cooperative, pt stated he was on 5150 for 3 days at [facility], he said he left because they were too slow to place him in a facility. Pt left [facility] at 0800 today. Pt also said he took "a lethal dose of tylenol" on the to help with withdrawals, "I took alot". Last used meth on the . Pt also said he received haldol at [facility], he is allergic to it "I have muscle spasms in the face". Pt is having difficulty speaking at times and then speech is very clear. Pt has been evaluated by provider
--- NOTE | 2021-03-16 10:56 | NUR ---
[facility] Mental health clinician is aware pt is here in ER, waiting for medical clearance
[2021-03-16 11:00] LABS: BASOPHILS % (AUTO) 0.6 % (0-1); EOSINOPHILS # (AUTO) 0.1 X10'3 (0-0.9); EOSINOPHILS % (AUTO) 0.7 % (0-6); HEMATOCRIT 39.3 % (42.0-52.0); LYMPHOCYTES # (AUTO) 1.4 X10'3 (1.1-4.8); LYMPHOCYTES % (AUTO) 19.2 % (21-51); MEAN CORPUSCULAR HEMOGLOBIN 30.2 PG (27.0-31.0); MEAN CORPUSCULAR HGB CONC 33.1 g/dL (33.0-36.5); MEAN CORPUSCULAR VOLUME 91.2 FL (78-98); MEAN PLATELET VOLUME 8.4 FL (7.4-10.4); MONOCYTES # (AUTO) 0.5 X10'3 (0-0.9); MONOCYTES % (AUTO) 6.9 % (2-12); NEUTROPHILS # (AUTO) 5.4 X10'3 (1.8-7.7); NEUTROPHILS % (AUTO) 72.6 % (42-75); PLATELET COUNT 208 X10'3 (140-440); RED BLOOD COUNT 4.31 X10'6 (4.70-6.10); RED CELL DISTRIBUTION WIDTH 15.4 % (11.5-14.5); WHITE BLOOD COUNT 7.5 X10'3 (4.5-11.0)
[2021-03-16 11:11] LABS: URINE AMPHETAMINE SCREEN NEGATIVE (Neg); URINE BARBITUATE SCREEN NEGATIVE (Neg); URINE BENZODIAZEPINES SCREEN NEGATIVE (Neg); URINE CANNABINOID SCREEN POSITIVE (Neg); URINE COCAINE SCREEN NEGATIVE (Neg); URINE METHADONE SCREEN NEGATIVE (Neg); URINE OPIATE SCREEN NEGATIVE (Neg); URINE PHENCYCLIDINE SCREEN NEGATIVE (Neg)
[2021-03-16 11:16] LABS: ALANINE AMINOTRANSFERASE 509 U/L (12-78); ALBUMIN 3.7 G/DL (3.4-5.0); ALBUMIN/GLOBULIN RATIO 1.1 (1.1-1.5); ALKALINE PHOSPHATASE 174 IU/L (46-116); ANION GAP 8 (8-16); ASPARTATE AMINO TRANSFERASE 284 U/L (10-37); BILIRUBIN,TOTAL 0.5 MG/DL (0.1-1.0); BLOOD UREA NITROGEN 12 MG/DL (7-18); BUN/CREATININE RATIO 17.9 (5.4-32.0); CALCIUM 8.7 MG/DL (8.5-10.1); CHLORIDE 104 MMOL/L (99-107); CREATININE 0.67 MG/DL (0.60-1.10); GLUCOSE 103 MG/DL (70-104); POTASSIUM 4.4 MMOL/L (3.5-5.1); SODIUM 142 MMOL/L (135-145); TOTAL CARBON DIOXIDE 29.7 MMOL/L (24-32); TOTAL PROTEIN 7.2 G/DL (6.4-8.2); eGFR > 90 ML/MIN
[2021-03-16 11:23] LABS: ETHANOL < 0.010 GM/DL (0.0-0.010)
[2021-03-16 11:24] LABS: ACETAMINOPHEN < 2.0 UG/ML (10-30)
[2021-03-16] MEDS ORDERED: normal saline 1000ML IV soln IV ONE (12:00)
--- NOTE | 2021-03-16 12:00 | NUR ---
[facility] is calling for packet,
--- NOTE | 2021-03-16 12:12 | NUR ---
CONTACTED [facility], WAITING ON MEDICAL CLEARANCE TO SEND PACKET
--- NOTE | 2021-03-16 12:30 | NUR ---
pt is resting quietly on gurney
--- NOTE | 2021-03-16 13:30 | NUR ---
pt has had lunch, jarrett well, no n/v
--- NOTE | 2021-03-16 14:18 | NUR ---
DR JOYCE AWARE 2LITER NS BOLUS DONE AND WILL REORDER LABS
[2021-03-16 14:50] LABS: CLARITY,URINE CLEAR (Clear); COLOR,URINE YELLOW (Yellow); GLUCOSE, URINE NEGATIVE (Neg); KETONES,URINE NEGATIVE (Neg); LEUKOCYTE ESTERASE ,URINE NEGATIVE (Neg); NITRITES, URINE NEGATIVE (Neg); OCCULT BLOOD,URINE NEGATIVE (Neg); PH,URINE 6.5 (4.8-8.0); PROTEIN,URINE NEGATIVE (Neg)
[2021-03-16 14:51] LABS: UA COLLECTION TYPE URINAL
--- NOTE | 2021-03-16 15:52 | NUR ---
PT IS RESTING QUIETLY ON [facility]
[2021-03-16 17:03] LABS: ALANINE AMINOTRANSFERASE 488 U/L (12-78); ALBUMIN 3.5 G/DL (3.4-5.0); ALBUMIN/GLOBULIN RATIO 1.1 (1.1-1.5); ALKALINE PHOSPHATASE 165 IU/L (46-116); ANION GAP 6 (8-16); ASPARTATE AMINO TRANSFERASE 258 U/L (10-37); BILIRUBIN,TOTAL 0.5 MG/DL (0.1-1.0); BLOOD UREA NITROGEN 11 MG/DL (7-18); BUN/CREATININE RATIO 16.7 (5.4-32.0); CALCIUM 8.8 MG/DL (8.5-10.1); CHLORIDE 108 MMOL/L (99-107); CREATININE 0.66 MG/DL (0.60-1.10); GLUCOSE 97 MG/DL (70-104); POTASSIUM 3.8 MMOL/L (3.5-5.1); SODIUM 143 MMOL/L (135-145); TOTAL CARBON DIOXIDE 28.7 MMOL/L (24-32); TOTAL PROTEIN 6.8 G/DL (6.4-8.2); eGFR > 90 ML/MIN
--- NOTE | 2021-03-16 17:52 | NUR ---
PT IS MEDICALLY CLEARED PER DR MEDINA, PACKET WILL BE FAXED TO [facility]
--- NOTE | 2021-03-16 19:00 | NUR ---
Received pt from main ER. Pt cooperative with assessment. Pt has flat/depressed affect and pt does endorse depression with suicidal thoughts.
[2021-03-16] MEDS ORDERED: NO HOME MEDS (19:17)
--- NOTE | 2021-03-16 21:00 | NUR ---
Pt cooperative with assessment by [facility] and was found to meet criteria for 5150 DTS. Pt asked for some medications to help him sleep and benadryl ordered, but by the time RN went to give, pt already asleep.
[2021-03-16] MEDS ORDERED: diphenhydrAMINE 25mg capsule PO PRN (21:50)
--- NOTE | 2021-03-16 23:01 | NUR ---
Pt laying in bed, eyes closed, no complaints or signs of distress.
--- NOTE | 2021-03-17 01:05 | NUR ---
Pt restless and went to the bathroom x 1, but continues to try and sleep. Pt offered no complaints.
--- NOTE | 2021-03-17 03:00 | NUR ---
Pt awoke and was given benadryl for anxiety and insomnia. Pt currently asleep in bed without signs of distress or complaints.
--- NOTE | 2021-03-17 05:00 | NUR ---
Pt remained asleep without signs of distress or restlessness.
--- NOTE | 2021-03-17 06:43 | NUR ---
Patient sleeping on left side. No distress observed. Continue to monitor.
--- NOTE | 2021-03-17 08:20 | NUR ---
Patient sitting up and eating breakfast. No distress observed. Continue to monitor.
--- NOTE | 2021-03-17 08:45 | NUR ---
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 RN explained that his regular doctor would have to test him and prescibe that treatment since this is something that is not treated in the E.R. Patient verbalized understanding but wanted it documented. Patient calm and in no distress. Patient laid down on his right side and attempting to sleep. Continue to monitor.
--- NOTE | 2021-03-17 09:29 | NUR ---
Patient appears to be sleeping on his left side. No distress observed. Continue to monitor.
--- NOTE | 2021-03-17 11:18 | NUR ---
Patient sleeping on right side. No distress observed. Continue to monitor.
--- NOTE | 2021-03-17 13:26 | NUR ---
Patient sitting up and eating breakfast. No distress observed. Continue to monitor.
--- NOTE | 2021-03-17 14:36 | NUR ---
RN removed patient's hep lock from right hand and placed a pressure bandage on his hand. No distress observed. Continue to monitor.
--- NOTE | 2021-03-17 15:04 | NUR ---
Patient sleeping supine. No distress observed. Continue to monitor.
--- NOTE | 2021-03-17 15:40 | NUR ---
Patient speaking to his mom loudly on the phone. Patient has poor insight to his situation. Patient talking about going to the [facility]. RN advised patient that the [facility] is not an option prior to going to an Inpatient unit. Patient got a little upset stating he wants to leave. RN kept quiet as patient going on about getting what he wants. Continue to monitor.
--- NOTE | 2021-03-17 16:57 | NUR ---
Note maciej in EDM - 03/17/21 at 1658 by ANICETO Patient sleeping on left side. No distress observed. Patient is still pending eval by [facility]. Continue to monitor.
--- NOTE | 2021-03-17 16:59 | NUR ---
Patient pacing in front of his room. No distress observed. Continue to monitor.
--- NOTE | 2021-03-17 19:13 | NUR ---
The patient is pacing back and forth in front of the nursing station. He denies that he is anxious but states he feels bored. He is aware that he is going to be placed. He denies A/V hallucinations. He denies suicidal thoughts and when asked about taking the overdose he stated he did it because he was high on meth.
--- NOTE | 2021-03-17 20:03 | NUR ---
The patient has been accepted at [facility] in [facility] by Dr. Mei at 1745 today. He will be transported tomorrow once a driver sales is availiable. They are wanting a nurse to nurse just prior to transport at [phone]
--- NOTE | 2021-03-17 20:43 | NUR ---
The patient appears to be sleeping
--- NOTE | 2021-03-17 21:45 | NUR ---
The patient appears to be sleeping
--- NOTE | 2021-03-17 23:59 | NUR ---
The patient appears to be sleeping
--- NOTE | 2021-03-18 02:15 | NUR ---
THe patient appears to be sleeping
--- NOTE | 2021-03-18 04:04 | NUR ---
The patient appears to be sleeping
--- NOTE | 2021-03-18 04:38 | NUR ---
Nurse to nurse with RN at [facility] to give them an update. Spoke with the night charge, Osmin
[2021-03-18 05:28] VITALS: BP 111/52
--- NOTE | 2021-03-18 06:25 | NUR ---
Patient sleeping supine. No distress observed. Continue to monitor.
--- NOTE | 2021-03-18 07:37 | NUR ---
Patient awoke. Patient's father called to speak to the nurse. Chan stated he didn't want dad to speak to RN. Patient fell back asleep. Continue to monitor.
--- NOTE | 2021-03-18 08:10 | NUR ---
Patient eating breakfast. No distress observed. Continue to monitor.
--- NOTE | 2021-03-18 09:15 | NUR ---
Patient speaking on the phone with his mom. Patient is loud but not upset. Patient appears hypo-manic. Continue to monitor.
--- NOTE | 2021-03-18 10:06 | NUR ---
Patient in his room reclining in bed awake. No distress observed. Continue to monitor.
== END 2021-03-18 12:05 ==
LOC: ER 10:01
DX: R45.851 Suicidal ideations (principal); Z20.822 Contact with and (suspected) exposure to COVID-19; F41.9 Anxiety disorder, unspecified; F20.9 Schizophrenia, unspecified; F12.90 Cannabis use, unspecified, uncomplicated; F15.90 Other stimulant use, unspecified, uncomplicated; Z72.89 Other problems related to lifestyle; Z79.899 Other long term (current) drug therapy
CPT/HCPCS: 36415; 80053; 80305; 80320; 80329; 81003; 84443; 85025; 87635; 96360; 99285; C9803; J7030; Q0163

== ENCOUNTER → 2021-04-17 | Emergency (ER) | payer MEDICAID ==
[~2021-04-17] MED LIST changes: +NO HOME MEDS
== END | disposition left against medical advice (07) ==
LOC: ER 17:41
DX: R10.9 Unspecified abdominal pain (principal); Z53.21 Procedure and treatment not carried out due to patient leaving prior to being seen by health care provider

== ENCOUNTER 2021-04-20 20:17 | Emergency (ER) | payer MEDICAID ==
[~2021-04-20] VITALS: Ht 185.4 cm; Wt 79.5 kg
[2021-04-20 20:21] VITALS: BP 134/87
== END 2021-04-20 20:46 ==
LOC: ER 20:18
DX: S61.402A Unspecified open wound of left hand, initial encounter (principal); Z02.89 Encounter for other administrative examinations; W26.8XXA Contact with other sharp object(s), not elsewhere classified, initial encounter; Y93.89 Activity, other specified; Y92.89 Other specified places as the place of occurrence of the external cause; Y99.8 Other external cause status
CPT/HCPCS: 99283

== ENCOUNTER 2021-05-02 17:20 | Emergency (ER) | payer MEDICAID ==
[~2021-05-02] VITALS: Ht 185.4 cm; Wt 77.3 kg
[2021-05-02 17:30] VITALS: BP 120/71
[2021-05-02] MEDS ORDERED: DOXY100C2 PO (18:37)
== END 2021-05-02 18:59 | disposition home or self-care (01) ==
LOC: ER 17:22
DX: K13.0 Diseases of lips (principal); F41.9 Anxiety disorder, unspecified; F32.9 Major depressive disorder, single episode, unspecified; F20.9 Schizophrenia, unspecified; F12.10 Cannabis abuse, uncomplicated; F15.10 Other stimulant abuse, uncomplicated; Z79.899 Other long term (current) drug therapy
CPT/HCPCS: 99283

== ENCOUNTER 2022-08-03 23:02 | Emergency (ER) | payer MEDICAID ==
[~2022-08-03] VITALS: Ht 190.5 cm; Wt 90.9 kg
[2022-08-04 07:18] VITALS: BP 110/69
== END 2022-08-04 09:03 | disposition home or self-care (01) ==
LOC: ER 23:03
DX: F20.9 Schizophrenia, unspecified (principal); F15.90 Other stimulant use, unspecified, uncomplicated; F41.9 Anxiety disorder, unspecified; F32.A Depression, unspecified; F12.90 Cannabis use, unspecified, uncomplicated; Z98.890 Other specified postprocedural states; Z72.89 Other problems related to lifestyle; Z56.0 Unemployment, unspecified; Z59.00 Homelessness unspecified; Z79.899 Other long term (current) drug therapy
CPT/HCPCS: 99283

== ENCOUNTER 2022-08-14 20:20 | Emergency (ER) | payer MEDICAID ==
[~2022-08-14] VITALS: Ht 190.5 cm; Wt 90.0 kg
[2022-08-14 21:03] LABS: BASOPHILS # (AUTO) 0.3 X10'3 (0-0.2); EOSINOPHILS # (AUTO) 0.2 X10'3 (0-0.9); EOSINOPHILS % (AUTO) 1.5 % (0-6); HEMATOCRIT 48.5 % (42.0-52.0); HEMOGLOBIN 16.1 g/dl (14.0-17.9); LYMPHOCYTES # (AUTO) 2.4 X10'3 (1.1-4.8); LYMPHOCYTES % (AUTO) 17.1 % (21-51); MEAN CORPUSCULAR HEMOGLOBIN 30.1 PG (27.0-31.0); MEAN CORPUSCULAR HGB CONC 33.1 g/dL (33.0-36.5); MEAN PLATELET VOLUME 8.6 FL (7.4-10.4); MONOCYTES # (AUTO) 1.2 X10'3 (0-0.9); MONOCYTES % (AUTO) 8.5 % (2-12); NEUTROPHILS # (AUTO) 9.8 X10'3 (1.8-7.7); NEUTROPHILS % (AUTO) 70.9 % (42-75); PLATELET COUNT 278 X10'3 (140-440); RED BLOOD COUNT 5.34 X10'6 (4.70-6.10); RED CELL DISTRIBUTION WIDTH 14.5 % (11.5-14.5); WHITE BLOOD COUNT 13.8 X10'3 (4.5-11.0)
[2022-08-14 21:24] LABS: ALANINE AMINOTRANSFERASE 24 U/L (12-78); ALBUMIN/GLOBULIN RATIO 1.3 (1.1-1.5); ALKALINE PHOSPHATASE 127 IU/L (46-116); ANION GAP 28 (8-16); ASPARTATE AMINO TRANSFERASE 33 U/L (10-37); BILIRUBIN,TOTAL 0.7 MG/DL (0.1-1.0); BLOOD UREA NITROGEN 19 MG/DL (7-18); CALCIUM 9.6 MG/DL (8.5-10.1); CHLORIDE 98 MMOL/L (99-107); CREATININE 1.73 MG/DL (0.60-1.10); GLUCOSE 115 MG/DL (70-104); POTASSIUM 3.7 MMOL/L (3.5-5.1); SODIUM 137 MMOL/L (135-145); TOTAL PROTEIN 8.9 G/DL (6.4-8.2); eGFR 49 ML/MIN
[2022-08-14 21:26] LABS: TOTAL CARBON DIOXIDE 10.6 MMOL/L (24-32)
--- NOTE | 2022-08-14 21:26 | NUR ---
CRITICAL RESULT co2 10.6, COMMUNICATED TO PROVIDER
[2022-08-14 22:26] VITALS: BP 137/80
[2022-08-14] MEDS ORDERED: normal saline 1000ML IV soln IVB ONE ×2 (22:30)
== END 2022-08-15 00:15 | disposition left against medical advice (07) ==
LOC: ER 20:21
DX: E87.2 Acidosis (principal); E87.6 Hypokalemia; F41.9 Anxiety disorder, unspecified; F20.9 Schizophrenia, unspecified; F12.10 Cannabis abuse, uncomplicated; F15.10 Other stimulant abuse, uncomplicated
CPT/HCPCS: 36415; 71045; 80053; 83880; 84484; 85025; 93005; 99285; J7030

== ENCOUNTER 2022-08-18 18:13 | Emergency (ER) | payer MEDICAID ==
[~2022-08-18] VITALS: Ht 193 cm; Wt 88.5 kg
[2022-08-18 19:39] LABS: BASOPHILS # (AUTO) 0.1 X10'3 (0-0.2); BASOPHILS % (AUTO) 0.5 % (0-1); EOSINOPHILS # (AUTO) 0.1 X10'3 (0-0.9); EOSINOPHILS % (AUTO) 0.5 % (0-6); HEMATOCRIT 40.5 % (42.0-52.0); HEMOGLOBIN 13.6 g/dl (14.0-17.9); LYMPHOCYTES # (AUTO) 2.1 X10'3 (1.1-4.8); LYMPHOCYTES % (AUTO) 17.4 % (21-51); MEAN CORPUSCULAR HEMOGLOBIN 30.3 PG (27.0-31.0); MEAN CORPUSCULAR HGB CONC 33.6 g/dL (33.0-36.5); MEAN CORPUSCULAR VOLUME 90.1 FL (78-98); MEAN PLATELET VOLUME 8.9 FL (7.4-10.4); MONOCYTES # (AUTO) 0.8 X10'3 (0-0.9); MONOCYTES % (AUTO) 6.4 % (2-12); NEUTROPHILS # (AUTO) 9.1 X10'3 (1.8-7.7); NEUTROPHILS % (AUTO) 75.2 % (42-75); PLATELET COUNT 177 X10'3 (140-440); RED BLOOD COUNT 4.49 X10'6 (4.70-6.10); WHITE BLOOD COUNT 12.1 X10'3 (4.5-11.0)
[2022-08-18 19:55] LABS: ALANINE AMINOTRANSFERASE 33 U/L (12-78); ALBUMIN 4.1 G/DL (3.4-5.0); ALBUMIN/GLOBULIN RATIO 1.3 (1.1-1.5); ALKALINE PHOSPHATASE 111 IU/L (46-116); ANION GAP 8 (8-16); ASPARTATE AMINO TRANSFERASE 55 U/L (10-37); BILIRUBIN,TOTAL 0.6 MG/DL (0.1-1.0); BLOOD UREA NITROGEN 8 MG/DL (7-18); BUN/CREATININE RATIO 10.3 (5.4-32.0); CALCIUM 8.8 MG/DL (8.5-10.1); CHLORIDE 104 MMOL/L (99-107); CREATININE 0.78 MG/DL (0.60-1.10); GLUCOSE 100 MG/DL (70-104); POTASSIUM 3.9 MMOL/L (3.5-5.1); SODIUM 140 MMOL/L (135-145); TOTAL CARBON DIOXIDE 28.1 MMOL/L (24-32); TOTAL PROTEIN 7.2 G/DL (6.4-8.2); eGFR > 90 ML/MIN
[2022-08-18 19:57] LABS: ETHANOL < 0.010 GM/DL (0.0-0.010)
[2022-08-18] MEDS ORDERED: OLANZapine 5mg rapidly disint. tablet PO ONE (21:10)
--- NOTE | 2022-08-18 21:12 | NUR ---
PT DIONTE TO ER OVERFLOW ACCOMPANIED BY STAFF AND SECURIRTY ON STANDBY. PT IS PARANOID, AND AGGRIVATED BECUASE WE WILL NOT LET HIM KEEP HIS BELONGINGS. A NEEDLE WAS CONFISCATED FROM HIM
--- NOTE | 2022-08-18 21:24 | NUR ---
PT given zyprexa 10 mg which he took without issue. pt given water and a sandwhich
--- NOTE | 2022-08-18 21:40 | NUR ---
PT denies SI at this time. He does say that his mother doesn't love him and that he thinks she is just acting, he also makes some delusional stataments about arm tatoos and his mother playing "mind games"
[2022-08-18 22:09] LABS: CLARITY,URINE CLEAR (Clear); COLOR,URINE YELLOW (Yellow); GLUCOSE, URINE NEGATIVE (Neg); KETONES,URINE NEGATIVE (Neg); LEUKOCYTE ESTERASE ,URINE NEGATIVE (Neg); NITRITES, URINE NEGATIVE (Neg); OCCULT BLOOD,URINE NEGATIVE (Neg); PH,URINE 7.5 (4.8-8.0); PROTEIN,URINE NEGATIVE (Neg)
[2022-08-18] MEDS ORDERED: LORazepam 1 MG tablet PO ONE (22:10)
--- NOTE | 2022-08-18 22:10 | NUR ---
Pt was sitting up in bed anxious, eyes darting around the room, and making sudden movements. He asks for more "pills please." 2 mg ativan PO given with good effect
[2022-08-18 22:14] LABS: UA COLLECTION TYPE CLN CATCH MIDSTREAM
[2022-08-18 22:21] LABS: URINE AMPHETAMINE SCREEN POSITIVE (Neg); URINE BARBITUATE SCREEN NEGATIVE (Neg); URINE BENZODIAZEPINES SCREEN NEGATIVE (Neg); URINE CANNABINOID SCREEN POSITIVE (Neg); URINE COCAINE SCREEN NEGATIVE (Neg); URINE METHADONE SCREEN NEGATIVE (Neg); URINE OPIATE SCREEN NEGATIVE (Neg); URINE PHENCYCLIDINE SCREEN NEGATIVE (Neg)
--- NOTE | 2022-08-19 00:10 | NUR ---
Pt asleep on R side RR 16
--- NOTE | 2022-08-19 02:45 | NUR ---
PT sleeping supine, respirations even and unloabored
--- NOTE | 2022-08-19 05:43 | NUR ---
PACKET FAXED TO [facility]
--- NOTE | 2022-08-19 06:34 | NUR ---
Patient sleeping on left side. No distress observed. Continue to monitor.
[2022-08-19] MEDS: OLANZapine 5mg rapidly disint. tablet PO SCH ×2 (08:03→20:00)
--- NOTE | 2022-08-19 08:17 | NUR ---
Patient eating breakfast. No distress observed.
--- NOTE | 2022-08-19 10:22 | NUR ---
Eder LINARES, evaluating patient. Patient is sleepy and is not answering questions. Continue to monitor.
--- NOTE | 2022-08-19 10:53 | NUR ---
Jimmy, Jae Easton, .
--- NOTE | 2022-08-19 12:10 | NUR ---
Patient given his lunch tray. Patient does not want to eat at this time. Continue to monitor.
--- NOTE | 2022-08-19 13:40 | NUR ---
[facility], Eder, Evaluating patient. Patient stated he wants to go to Psych hospital but he won't take medication. Eder explained there is no point in going to a psych hospital if you won't take medication. Patient got angry. Continue to monitor.
--- NOTE | 2022-08-19 15:23 | NUR ---
patient asleep,respirations regular.
--- NOTE | 2022-08-19 17:33 | NUR ---
Patient sleeping. No distress observed. Continue to monitor.
[2022-08-19 17:45] VITALS: BP 106/56
--- NOTE | 2022-08-19 18:05 | NUR ---
Patient on the phone with his mom. Patient talking loud and cussing at her. Patient states "I saw (female person's name) at the house and I'll fucking kill her if she goes over there again." Patient also threatening his mother, cussing and talking loudly. RN attempted to get the phone from patient but he would not hand it over. Security called and they had to pull it out of his hand and the phone broke. Patient wants his own phone and RN refused and stated he lost the right for the phone due to his behavior. DARREL Mtz spoke to CANDELARIO Perez who is ordering I.M. medication. Continue to monitor.
[2022-08-19] MEDS ORDERED: haloperidol lactate 5mg/ml inj IM ONE (18:10)
[2022-08-19] MEDS ORDERED: diphenhydrAMINE 50 mg/ml inj IM ONE (18:10)
[2022-08-19] MEDS ORDERED: LORazepam 2 mg/ml vial IM ONE (18:10)
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
--- NOTE | 2022-08-19 18:25 | NUR ---
10 MG HALDOL, 2 MG ATIVAN, 50 MG BENADRYL GIVEN IM TO PT WITH ASSISTANCE FROM SECURITY AND STAFF.
--- NOTE | 2022-08-19 18:30 | NUR ---
HARD RESTRAINTS APPLIED TO UPPER AND LOWER EXTREMITIES X4. RN VERBALLY TRIES TO DEESCALATE PT AND ASSURE HIM HE IS OKAY, AND EXPLAIN WHAT IS HAPPENING. PT RESPONDS, "SHUT THE FUCK UP BITCH."
--- NOTE | 2022-08-19 18:45 | NUR ---
PT THRASHING IN THE BED, BROKE 2 HARD RESTRAINTS, NEW ONES APPLIED
--- NOTE | 2022-08-19 19:00 | NUR ---
PT BROKE LEFT UPPER EXTREMITY RESTRAINT, NEW RESTRAINT APPLIED. RN TRIES AGAIN TO VERBALLY DEESCALATE PT, HE SCREAMS BACK ," GET THE FUCK AWAY FROM ME."
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
--- NOTE | 2022-08-19 19:24 | NUR ---
PT TRANSFERRED TO BED 15 IN MAIN ER
--- NOTE | 2022-08-19 20:45 | NUR ---
Restraints removed. Patient resting comfortably. Acknowledged behavioral needs to keep restraints off. No needs at this time.
--- NOTE | 2022-08-19 21:45 | NUR ---
Patient asleep. No signs of distress. No needs at this time.
--- NOTE | 2022-08-19 22:45 | NUR ---
Patient remains asleep. No signs of distress. No needs at this time.
--- NOTE | 2022-08-19 23:24 | NUR ---
Pt brought back to ER overflow, pt resting quietly in bed RR 16
--- NOTE | 2022-08-20 00:30 | NUR ---
Pt is asleep, supine respirations even and unlabored
--- NOTE | 2022-08-20 02:30 | NUR ---
pt repositioned self in bed, went back to sleep
--- NOTE | 2022-08-20 05:00 | NUR ---
PT asleep on R side respirations 14, even and unlabored
--- NOTE | 2022-08-20 06:50 | NUR ---
Patient sleeping supine. No distress observed. Continue to monitor.
--- NOTE | 2022-08-20 08:17 | NUR ---
Patient eating breakfast. No distress observed. Continue to monitor.
[2022-08-20] MEDS: OLANZapine 5mg rapidly disint. tablet PO SCH (08:19)
--- NOTE | 2022-08-20 08:19 | NUR ---
Patient ambulatory to BR and back to nurses station and asked for phone. RN advised patient that he can't threaten anybody patient stated "whatever". Continue to monitor.
--- NOTE | 2022-08-20 08:49 | NUR ---
patient pacing anxiously around nursing station, got dressed and walked out, nursing staff notified [employer] about patient walking out of hospital
== END 2022-08-20 08:59 | disposition left against medical advice (07) ==
LOC: ER 18:13
DX: R45.851 Suicidal ideations (principal); Z20.822 Contact with and (suspected) exposure to COVID-19; F31.9 Bipolar disorder, unspecified; F20.9 Schizophrenia, unspecified; F12.10 Cannabis abuse, uncomplicated; F15.10 Other stimulant abuse, uncomplicated; Z59.00 Homelessness unspecified; Z56.0 Unemployment, unspecified; Z79.899 Other long term (current) drug therapy
CPT/HCPCS: 36415; 80053; 80305; 80320; 81003; 85025; 87811; 96372; 99285; J1200; J1630; J2060

== ENCOUNTER 2022-08-23 17:13 | Emergency (ER) | payer MEDICAID ==
[~2022-08-23] VITALS: Ht 190.5 cm; Wt 90.9 kg
[2022-08-23 17:25] VITALS: BP 154/101
[2022-08-23] MEDS ORDERED: ketamine 50 mg/ml 10ml vial IM ONE (17:35)
[2022-08-23] MEDS ORDERED: diazepam inj 5 MG/ML inj. IV ONE (17:45)
[2022-08-23] MEDS ORDERED: magnesium citrate 296ml oral solution PO ONE (18:10)
[2022-08-23] MEDS ORDERED: magnesium hydroxide 30ml (MOM) UD suspension PO ONE (18:15)
== END 2022-08-23 18:50 | disposition home or self-care (01) ==
LOC: ER 17:14
DX: K59.00 Constipation, unspecified (principal); F31.9 Bipolar disorder, unspecified; F20.9 Schizophrenia, unspecified; F12.10 Cannabis abuse, uncomplicated; F15.10 Other stimulant abuse, uncomplicated
CPT/HCPCS: 74176; 96374; 99284; J3360

== ENCOUNTER 2022-08-27 18:10 | Emergency (ER) | payer MEDICAID ==
[~2022-08-27] VITALS: Ht 190.5 cm; Wt 90.9 kg
[2022-08-27 18:21] VITALS: BP 118/73
--- NOTE | 2022-08-28 03:45 | NUR ---
Patient was brought back to a room, immediately put the blanket over his head, refused blood draws, refused vitals, refused to speak with the MD, and became hostile with staff. Security paged.
[2022-08-28] MEDS ORDERED: ziprasidone IM 20mg inj **IM only IM ONE (03:55)
== END 2022-08-28 04:05 | disposition home or self-care (01) ==
LOC: ER 18:11
DX: R45.851 Suicidal ideations (principal); F41.9 Anxiety disorder, unspecified; F32.A Depression, unspecified; F20.9 Schizophrenia, unspecified; F17.200 Nicotine dependence, unspecified, uncomplicated; F12.90 Cannabis use, unspecified, uncomplicated; F15.90 Other stimulant use, unspecified, uncomplicated; Z98.890 Other specified postprocedural states; Z72.89 Other problems related to lifestyle; Z56.0 Unemployment, unspecified; Z59.00 Homelessness unspecified; Z79.899 Other long term (current) drug therapy
CPT/HCPCS: 99281; 99285

== ENCOUNTER 2022-09-08 10:21 | Emergency (ER) | payer MEDICAID | END 2022-09-08 11:08 | disposition left against medical advice (07) | LOC: ER 10:22 | DX: Z00.8 Encounter for other general examination (principal); Z53.21 Procedure and treatment not carried out due to patient leaving prior to being seen by health care provider ==

== ENCOUNTER 2022-09-24 07:37 | Emergency (ER) | payer MEDICAID ==
[~2022-09-24] VITALS: Ht 190.5 cm; Wt 90.9 kg
[2022-09-24 07:56] VITALS: BP 137/64
== END 2022-09-24 10:09 | disposition home or self-care (01) ==
LOC: ER 07:37
DX: Z02.89 Encounter for other administrative examinations (principal); R31.9 Hematuria, unspecified; B19.20 Unspecified viral hepatitis C without hepatic coma; F41.9 Anxiety disorder, unspecified; F32.A Depression, unspecified; F20.9 Schizophrenia, unspecified; F12.90 Cannabis use, unspecified, uncomplicated; F15.90 Other stimulant use, unspecified, uncomplicated; Z98.890 Other specified postprocedural states; Z72.89 Other problems related to lifestyle; Z56.0 Unemployment, unspecified; Z59.00 Homelessness unspecified; Z79.899 Other long term (current) drug therapy
CPT/HCPCS: 99281

== ENCOUNTER 2022-09-27 13:02 | Emergency (ER) | payer MEDICAID ==
[~2022-09-27] VITALS: Ht 190.5 cm; Wt 90.9 kg
[2022-09-27 13:09] VITALS: BP 126/60
[2022-09-27 14:28] LABS: ALANINE AMINOTRANSFERASE 16 U/L (12-78); ALBUMIN 4.4 G/DL (3.4-5.0); ALBUMIN/GLOBULIN RATIO 1.4 (1.1-1.5); ALKALINE PHOSPHATASE 123 IU/L (46-116); ANION GAP 10 (8-16); ASPARTATE AMINO TRANSFERASE 17 U/L (10-37); BILIRUBIN,TOTAL 0.8 MG/DL (0.1-1.0); BLOOD UREA NITROGEN 7 MG/DL (7-18); BUN/CREATININE RATIO 9.1 (5.4-32.0); CALCIUM 9.4 MG/DL (8.5-10.1); CHLORIDE 101 MMOL/L (99-107); CREATININE 0.77 MG/DL (0.60-1.10); ETHANOL < 0.010 GM/DL (0.0-0.010); GLUCOSE 105 MG/DL (70-104); POTASSIUM 3.7 MMOL/L (3.5-5.1); SODIUM 139 MMOL/L (135-145); TOTAL CARBON DIOXIDE 28.2 MMOL/L (24-32); TOTAL PROTEIN 7.6 G/DL (6.4-8.2); eGFR > 90 ML/MIN
[2022-09-27 14:29] LABS: BASOPHILS # (AUTO) 0.1 X10'3 (0-0.2); BASOPHILS % (AUTO) 0.6 % (0-1); EOSINOPHILS # (AUTO) 0.2 X10'3 (0-0.9); EOSINOPHILS % (AUTO) 2.4 % (0-6); HEMATOCRIT 44.4 % (42.0-52.0); HEMOGLOBIN 15.3 g/dl (14.0-17.9); LYMPHOCYTES # (AUTO) 3.1 X10'3 (1.1-4.8); LYMPHOCYTES % (AUTO) 34.4 % (21-51); MEAN CORPUSCULAR HEMOGLOBIN 30.7 PG (27.0-31.0); MEAN CORPUSCULAR HGB CONC 34.5 g/dL (33.0-36.5); MEAN CORPUSCULAR VOLUME 89.2 FL (78-98); MONOCYTES # (AUTO) 0.6 X10'3 (0-0.9); MONOCYTES % (AUTO) 6.7 % (2-12); NEUTROPHILS % (AUTO) 55.9 % (42-75); PLATELET COUNT 219 X10'3 (140-440); RED BLOOD COUNT 4.98 X10'6 (4.70-6.10); RED CELL DISTRIBUTION WIDTH 14.1 % (11.5-14.5); WHITE BLOOD COUNT 8.9 X10'3 (4.5-11.0)
[2022-09-27 14:49] LABS: URINE AMPHETAMINE SCREEN POSITIVE (Neg); URINE BARBITUATE SCREEN NEGATIVE (Neg); URINE BENZODIAZEPINES SCREEN NEGATIVE (Neg); URINE CANNABINOID SCREEN POSITIVE (Neg); URINE COCAINE SCREEN NEGATIVE (Neg); URINE METHADONE SCREEN NEGATIVE (Neg); URINE OPIATE SCREEN POSITIVE (Neg); URINE PHENCYCLIDINE SCREEN NEGATIVE (Neg)
== END 2022-09-27 14:38 | disposition home or self-care (01) ==
LOC: ER 13:02
DX: F15.10 Other stimulant abuse, uncomplicated (principal); F10.10 Alcohol abuse, uncomplicated; F41.9 Anxiety disorder, unspecified; F32.A Depression, unspecified; F20.9 Schizophrenia, unspecified; F12.10 Cannabis abuse, uncomplicated; Z59.00 Homelessness unspecified; Z56.0 Unemployment, unspecified; Z79.899 Other long term (current) drug therapy
CPT/HCPCS: 36415; 80053; 80305; 80320; 85025; 99283

== ENCOUNTER 2022-09-27 14:58 | Emergency (ER) | payer MEDICAID ==
[~2022-09-27] VITALS: Ht 190.5 cm; Wt 90.9 kg
[2022-09-27 15:20] VITALS: BP 111/54
== END 2022-09-27 18:28 | disposition home or self-care (01) ==
LOC: ER 14:59
DX: F15.90 Other stimulant use, unspecified, uncomplicated (principal); F31.9 Bipolar disorder, unspecified; F20.9 Schizophrenia, unspecified; F12.10 Cannabis abuse, uncomplicated; Z59.00 Homelessness unspecified; Z56.0 Unemployment, unspecified; Z79.899 Other long term (current) drug therapy
CPT/HCPCS: 99281

== ENCOUNTER 2022-09-30 15:43 | Emergency (ER) | payer MEDICAID ==
[~2022-09-30] VITALS: Ht 190.5 cm; Wt 100.0 kg
[2022-09-30 16:02] VITALS: BP 132/72
[2022-09-30] MEDS ORDERED: terbinafine cream 30gm TP ONE (16:10)
== END 2022-09-30 16:26 | disposition home or self-care (01) ==
LOC: ER 15:43
DX: F10.10 Alcohol abuse, uncomplicated (principal); Z00.8 Encounter for other general examination; F41.9 Anxiety disorder, unspecified; F20.9 Schizophrenia, unspecified; F12.10 Cannabis abuse, uncomplicated; F15.10 Other stimulant abuse, uncomplicated; Z79.899 Other long term (current) drug therapy; Z79.1 Long term (current) use of non-steroidal anti-inflammatories (NSAID); Z59.00 Homelessness unspecified; Z56.0 Unemployment, unspecified
CPT/HCPCS: 99282

== ENCOUNTER 2022-10-01 01:17 | Emergency (ER) | payer MEDICAID ==
[~2022-10-01] VITALS: Ht 190.5 cm; Wt 90.9 kg
[2022-10-01 01:21] VITALS: BP 128/78
== END 2022-10-01 09:41 | disposition left against medical advice (07) ==
LOC: ER 01:19
DX: N28.9 Disorder of kidney and ureter, unspecified (principal); Z53.21 Procedure and treatment not carried out due to patient leaving prior to being seen by health care provider

== ENCOUNTER 2022-10-03 16:02 | Emergency (ER) | payer MEDICAID ==
[~2022-10-03] VITALS: Ht 190.5 cm; Wt 104.0 kg
[2022-10-03 21:38] LABS: BASOPHILS # (AUTO) 0.1 X10'3 (0-0.2); EOSINOPHILS # (AUTO) 0.1 X10'3 (0-0.9); HEMATOCRIT 43.3 % (42.0-52.0); HEMOGLOBIN 14.5 g/dl (14.0-17.9); LYMPHOCYTES # (AUTO) 2.9 X10'3 (1.1-4.8); LYMPHOCYTES % (AUTO) 30.2 % (21-51); MEAN CORPUSCULAR HEMOGLOBIN 30.6 PG (27.0-31.0); MEAN CORPUSCULAR HGB CONC 33.4 g/dL (33.0-36.5); MEAN CORPUSCULAR VOLUME 91.5 FL (78-98); MEAN PLATELET VOLUME 8.2 FL (7.4-10.4); MONOCYTES # (AUTO) 0.7 X10'3 (0-0.9); MONOCYTES % (AUTO) 7.5 % (2-12); NEUTROPHILS # (AUTO) 5.9 X10'3 (1.8-7.7); NEUTROPHILS % (AUTO) 60.3 % (42-75); PLATELET COUNT 183 X10'3 (140-440); RED BLOOD COUNT 4.73 X10'6 (4.70-6.10); RED CELL DISTRIBUTION WIDTH 14.1 % (11.5-14.5); WHITE BLOOD COUNT 9.8 X10'3 (4.5-11.0)
[2022-10-03 21:56] LABS: ALANINE AMINOTRANSFERASE 14 U/L (12-78); ALBUMIN 3.9 G/DL (3.4-5.0); ALBUMIN/GLOBULIN RATIO 1.1 (1.1-1.5); ALKALINE PHOSPHATASE 103 IU/L (46-116); ANION GAP 9 (8-16); ASPARTATE AMINO TRANSFERASE 14 U/L (10-37); BILIRUBIN,TOTAL 0.4 MG/DL (0.1-1.0); BLOOD UREA NITROGEN 8 MG/DL (7-18); BUN/CREATININE RATIO 11.6 (5.4-32.0); CALCIUM 8.7 MG/DL (8.5-10.1); CHLORIDE 102 MMOL/L (99-107); CREATININE 0.69 MG/DL (0.60-1.10); ETHANOL < 0.010 GM/DL (0.0-0.010); GLUCOSE 100 MG/DL (70-104); POTASSIUM 3.7 MMOL/L (3.5-5.1); SODIUM 138 MMOL/L (135-145); TOTAL CARBON DIOXIDE 27.5 MMOL/L (24-32); TOTAL PROTEIN 7.4 G/DL (6.4-8.2); eGFR > 90 ML/MIN
--- NOTE | 2022-10-04 03:54 | NUR ---
PATIENT'S WAS SENT TO [facility].
--- NOTE | 2022-10-04 09:12 | NUR ---
tech gave pt breakfast and got urine from pt, tech took urine down to lab to be tested.
[2022-10-04 10:28] LABS: CLARITY,URINE CLEAR (Clear); COLOR,URINE YELLOW (Yellow); GLUCOSE, URINE NEGATIVE (Neg); KETONES,URINE NEGATIVE (Neg); LEUKOCYTE ESTERASE ,URINE NEGATIVE (Neg); NITRITES, URINE NEGATIVE (Neg); OCCULT BLOOD,URINE NEGATIVE (Neg); PH,URINE 6.5 (4.8-8.0); PROTEIN,URINE NEGATIVE (Neg); UROBILINOGEN,URINE 0.2 E.U/dL (0.2-1.0)
[2022-10-04 10:32] LABS: UA COLLECTION TYPE VOIDED
[2022-10-04 10:35] LABS: URINE AMPHETAMINE SCREEN NEGATIVE (Neg); URINE BARBITUATE SCREEN NEGATIVE (Neg); URINE BENZODIAZEPINES SCREEN NEGATIVE (Neg); URINE CANNABINOID SCREEN NEGATIVE (Neg); URINE COCAINE SCREEN NEGATIVE (Neg); URINE METHADONE SCREEN NEGATIVE (Neg); URINE OPIATE SCREEN NEGATIVE (Neg); URINE PHENCYCLIDINE SCREEN NEGATIVE (Neg)
--- NOTE | 2022-10-04 11:11 | NUR ---
sandee sent labs to [facility] via fax.
--- NOTE | 2022-10-04 13:43 | NUR ---
Pt. ambulated over from the main ER accompanied by Tech. He changed into green scrubs and belongings were inventoried.
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
--- NOTE | 2022-10-04 14:25 | NUR ---
1:1 completed at bedside, pt. currently denies any S/I or plan. He reports he is feeling lonely with the holidays coming up and does not get along with his family and has no friends in the area.
--- NOTE | 2022-10-04 14:31 | NUR ---
Per [facility], pt. does not meet the criteria for a MH hold and will be discharged. Pt. reports understaning.
--- NOTE | 2022-10-04 14:51 | NUR ---
Pt. was discharged off the unit accompanied by security. Pt. was given a bus pass to use for transportaion to his desired location. Belongings were returned to pt. and he was in posession of weather appropriate clothing. Discharge instructions were reviewed by this report writer, and pt. reported understanding. Pt. was also provided with mental health resources. He is able to contract for safety.
[2022-10-04 14:55] VITALS: BP 117/96
== END 2022-10-04 14:59 ==
LOC: ER 16:03
DX: R45.851 Suicidal ideations (principal); Z20.822 Contact with and (suspected) exposure to COVID-19; F15.10 Other stimulant abuse, uncomplicated; F31.9 Bipolar disorder, unspecified; F20.9 Schizophrenia, unspecified; F12.10 Cannabis abuse, uncomplicated; Z59.00 Homelessness unspecified; Z56.0 Unemployment, unspecified; Z79.899 Other long term (current) drug therapy
CPT/HCPCS: 36415; 80053; 80305; 80320; 81003; 85025; 87811; 99285

== ENCOUNTER 2022-10-06 14:49 | Emergency (ER) | payer MEDICAID ==
[~2022-10-06] VITALS: Ht 190.5 cm; Wt 91.0 kg
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
[2022-10-06] MEDS ORDERED: LORazepam 1 MG tablet PO ONE (17:35)
[2022-10-06 17:46] VITALS: BP 123/73
--- NOTE | 2022-10-06 17:52 | NUR ---
Administered Ativan 2mg PO, without issue. Pt is sitting on his bed, trying to make phone call. Number he had was no longer in service. Pt is picking, then rubbing his fingers and arms. No skin impairment noted.
[2022-10-06 18:27] LABS: BASOPHILS % (AUTO) 0.3 % (0-1); EOSINOPHILS % (AUTO) 0.2 % (0-6); HEMATOCRIT 44.1 % (42.0-52.0); HEMOGLOBIN 14.9 g/dl (14.0-17.9); LYMPHOCYTES # (AUTO) 2.5 X10'3 (1.1-4.8); LYMPHOCYTES % (AUTO) 15.7 % (21-51); MEAN CORPUSCULAR HEMOGLOBIN 30.4 PG (27.0-31.0); MEAN CORPUSCULAR HGB CONC 33.7 g/dL (33.0-36.5); MEAN CORPUSCULAR VOLUME 90.1 FL (78-98); MEAN PLATELET VOLUME 8.4 FL (7.4-10.4); MONOCYTES # (AUTO) 1.1 X10'3 (0-0.9); MONOCYTES % (AUTO) 7.2 % (2-12); NEUTROPHILS # (AUTO) 12.2 X10'3 (1.8-7.7); NEUTROPHILS % (AUTO) 76.6 % (42-75); PLATELET COUNT 186 X10'3 (140-440); WHITE BLOOD COUNT 15.9 X10'3 (4.5-11.0)
[2022-10-06 18:41] LABS: ALANINE AMINOTRANSFERASE 15 U/L (12-78); ALBUMIN 4.3 G/DL (3.4-5.0); ALBUMIN/GLOBULIN RATIO 1.4 (1.1-1.5); ALKALINE PHOSPHATASE 104 IU/L (46-116); ANION GAP 11 (8-16); ASPARTATE AMINO TRANSFERASE 17 U/L (10-37); BILIRUBIN,TOTAL 1.1 MG/DL (0.1-1.0); BLOOD UREA NITROGEN 15 MG/DL (7-18); BUN/CREATININE RATIO 16.9 (5.4-32.0); CALCIUM 9.2 MG/DL (8.5-10.1); CHLORIDE 102 MMOL/L (99-107); CREATININE 0.89 MG/DL (0.60-1.10); GLUCOSE 97 MG/DL (70-104); POTASSIUM 3.9 MMOL/L (3.5-5.1); SODIUM 139 MMOL/L (135-145); TOTAL CARBON DIOXIDE 26.5 MMOL/L (24-32); TOTAL PROTEIN 7.4 G/DL (6.4-8.2); eGFR > 90 ML/MIN
[2022-10-06 18:51] LABS: ETHANOL < 0.010 GM/DL (0.0-0.010)
== END 2022-10-06 19:09 | disposition home or self-care (01) ==
LOC: ER 14:50
DX: F41.9 Anxiety disorder, unspecified (principal); Z20.822 Contact with and (suspected) exposure to COVID-19; F15.10 Other stimulant abuse, uncomplicated; F32.A Depression, unspecified; F20.9 Schizophrenia, unspecified; F12.10 Cannabis abuse, uncomplicated; Z59.00 Homelessness unspecified
CPT/HCPCS: 36415; 80053; 80320; 84443; 85025; 87811; 99283

== ENCOUNTER 2022-10-08 12:02 | Inpatient (IN) | payer MEDICAID ==
[~2022-10-08] VITALS: Ht 190.5 cm; Wt 117.1 kg
[~2022-10-08 12:02] MED LIST changes: -IBUP-1986 PO
[2022-10-08 12:41] LABS: BASOPHILS # (AUTO) 0.1 X10'3 (0-0.2); BASOPHILS % (AUTO) 0.8 % (0-1); EOSINOPHILS # (AUTO) 0.3 X10'3 (0-0.9); EOSINOPHILS % (AUTO) 2.8 % (0-6); HEMATOCRIT 46.2 % (42.0-52.0); HEMOGLOBIN 15.3 g/dl (14.0-17.9); LYMPHOCYTES # (AUTO) 3.5 X10'3 (1.1-4.8); LYMPHOCYTES % (AUTO) 28.1 % (21-51); MEAN CORPUSCULAR HEMOGLOBIN 30.3 PG (27.0-31.0); MEAN CORPUSCULAR HGB CONC 33.1 g/dL (33.0-36.5); MEAN CORPUSCULAR VOLUME 91.3 FL (78-98); MEAN PLATELET VOLUME 8.8 FL (7.4-10.4); MONOCYTES # (AUTO) 1.2 X10'3 (0-0.9); MONOCYTES % (AUTO) 9.5 % (2-12); NEUTROPHILS # (AUTO) 7.3 X10'3 (1.8-7.7); NEUTROPHILS % (AUTO) 58.8 % (42-75); PLATELET COUNT 181 X10'3 (140-440); RED BLOOD COUNT 5.05 X10'6 (4.70-6.10); WHITE BLOOD COUNT 12.4 X10'3 (4.5-11.0)
[2022-10-08 12:57] LABS: ALANINE AMINOTRANSFERASE 16 U/L (12-78); ALBUMIN 4.1 G/DL (3.4-5.0); ALBUMIN/GLOBULIN RATIO 1.2 (1.1-1.5); ALKALINE PHOSPHATASE 105 IU/L (46-116); ANION GAP 9 (8-16); ASPARTATE AMINO TRANSFERASE 19 U/L (10-37); BLOOD UREA NITROGEN 17 MG/DL (7-18); CHLORIDE 102 MMOL/L (99-107); CREATININE 0.81 MG/DL (0.60-1.10); ETHANOL < 0.010 GM/DL (0.0-0.010); GLUCOSE 96 MG/DL (70-104); POTASSIUM 4.3 MMOL/L (3.5-5.1); SODIUM 138 MMOL/L (135-145); TOTAL CARBON DIOXIDE 27.5 MMOL/L (24-32); TOTAL PROTEIN 7.4 G/DL (6.4-8.2); eGFR > 90 ML/MIN
--- NOTE | 2022-10-08 14:02 | NUR ---
PT EATING LUNCH. PT BEHAVIOR APPROP AT THIS TIME.
[2022-10-08 14:55] LABS: URINE AMPHETAMINE SCREEN POSITIVE (Neg); URINE BARBITUATE SCREEN NEGATIVE (Neg); URINE BENZODIAZEPINES SCREEN NEGATIVE (Neg); URINE CANNABINOID SCREEN POSITIVE (Neg); URINE COCAINE SCREEN NEGATIVE (Neg); URINE METHADONE SCREEN NEGATIVE (Neg); URINE OPIATE SCREEN NEGATIVE (Neg); URINE PHENCYCLIDINE SCREEN NEGATIVE (Neg)
--- NOTE | 2022-10-08 20:00 | NUR ---
FILLED UP HIS WATER PITCHER AND PUT 2 EXTRA BLANKETS ONTO HIM AND TURNED OFF HIS LIGHTS.
--- NOTE | 2022-10-08 22:32 | NUR ---
pt appears to be asleep, regular respiratory rate.
--- NOTE | 2022-10-09 06:29 | NUR ---
Pt moved from main ER to ER overflow bed 25.
--- NOTE | 2022-10-09 06:51 | NUR ---
Covid test not done yesterday when it was ordered at 1222. Binax Covid swab done by Mayelin ROJO and sent to lab.
--- NOTE | 2022-10-09 07:47 | NUR ---
tech gave pt a pitcher of water
[2022-10-09 08:22] LABS: CLARITY,URINE CLEAR (Clear); COLOR,URINE YELLOW (Yellow); GLUCOSE, URINE NEGATIVE (Neg); KETONES,URINE TRACE mg/dl (Neg); LEUKOCYTE ESTERASE ,URINE NEGATIVE (Neg); NITRITES, URINE NEGATIVE (Neg); OCCULT BLOOD,URINE NEGATIVE (Neg); PH,URINE 5.5 (4.8-8.0); PROTEIN,URINE NEGATIVE (Neg); UROBILINOGEN,URINE 0.2 E.U/dL (0.2-1.0)
[2022-10-09 08:25] LABS: UA COLLECTION TYPE CLN CATCH MIDSTREAM
--- NOTE | 2022-10-09 08:33 | NUR ---
pt packet sent to [facility]
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
--- NOTE | 2022-10-09 09:59 | NUR ---
Pt ambulated to the bathroom.
--- NOTE | 2022-10-09 11:42 | NUR ---
break rn covering, patient sitting quietly in bed.
--- NOTE | 2022-10-09 12:23 | NUR ---
tech gave pt their lunch tray, mental health case workers came in to see pt.
--- NOTE | 2022-10-09 13:19 | NUR ---
Pt lying quietly in bed on his left side.
--- NOTE | 2022-10-09 13:50 | NUR ---
Pt lying quietly in bed awake.
--- NOTE | 2022-10-09 13:56 | NUR ---
Pt is talking to himself.
--- NOTE | 2022-10-09 16:25 | NUR ---
Pt up to use the bathroom.
--- NOTE | 2022-10-09 16:35 | NUR ---
Ivanna wing in ED - 10/09/22 at 1637 by GRACIE Pt discharged home with dad, all belongings returned.
--- NOTE | 2022-10-09 16:41 | NUR ---
Expedited 5 day LPS conservatorship notice paperwork brought to the ER by the county with the instruction/expectation that the kiln charger would be serving the paperwork to the patient today.
--- NOTE | 2022-10-09 17:12 | NUR ---
Public Guardian will be here on Thursday to serve patient his TCON notice.
--- NOTE | 2022-10-09 18:08 | NUR ---
Pt responding to internal stimuli, talking to himself constantly while eating his dinner.
--- NOTE | 2022-10-09 18:10 | NUR ---
tech gave pt their dinner tray
--- NOTE | 2022-10-09 19:24 | NUR ---
Patient is cooperative, he ramblles, he looks to be responding to internal stimuli.
[2022-10-09] MEDS ORDERED: traZODone 50mg tablet PO SCH (20:20)
[2022-10-09] MEDS ORDERED: traZODone 50mg tablet PO ONE (20:20)
--- NOTE | 2022-10-09 20:28 | NUR ---
Patient is awake, responding to internal stimuli. He cooperated with medication for sleep. eg:Trazadone 50 mg PO. Patient is reported homicidal ideation. He denies S/I at this time.
--- NOTE | 2022-10-09 23:05 | NUR ---
Patient has been sleeping quietly, in view from nurses station.
--- NOTE | 2022-10-10 02:34 | NUR ---
Patient has positioned self onto his left side with his knees flexed. He is sleeping quietly.
--- NOTE | 2022-10-10 04:59 | NUR ---
Patient is sleeping quietly No distritress.
--- NOTE | 2022-10-10 06:40 | NUR ---
Patient is laying in bed sleeping. No distress noted.
--- NOTE | 2022-10-10 08:10 | NUR ---
Patient awoke for breakfast and is now lying in bed resting.
--- NOTE | 2022-10-10 08:38 | NUR ---
Admitting here gathering information. Patient answering questions appropriately.
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
--- NOTE | 2022-10-10 09:46 | NUR ---
GIVING BREAK TO PRIMARY RN. PT UP TO BR WITH STEADY GAIT. NO NEEDS AT THIS TIME
--- NOTE | 2022-10-10 12:10 | NUR ---
Break RN covering. Patient sitting quietly in bed, eating lunch.
--- NOTE | 2022-10-10 13:33 | NUR ---
Patient up to void and then back to bed.
--- NOTE | 2022-10-10 15:06 | NUR ---
DARREL Bush called and stated that they are on their way down to pickup patient for [facility]. Patient notified.
--- NOTE | 2022-10-10 15:30 | NUR ---
Patient discharged to [facility] with Jaret DOYLE and security via w/c.
[2022-10-10 15:40] VITALS: BP 134/74; PULSE 75; RESP 16; TEMP 98.7; O2SAT 99
--- NOTE | 2022-10-10 15:41 | NUR ---
Admit note: Pt admitted today on 5150 for DTO from our ER at 1530. Pt reported that he constantly has thoughts of killing people. He does not know where he can live. He is homeless, does not eat and not wearing shoes. Pt has history of Schizophrenia, bipolar,anxiety,antisocial.
[2022-10-10 15:50] VITALS: RESP 16; O2SAT 99
[2022-10-10] MEDS ORDERED: mag hydrox/Alum hydrox/simeth 30ml oral suspension PO PRN (16:30)
[2022-10-10] MEDS ORDERED: loperamide 2mg capsule PO PRN (16:30)
[2022-10-10] MEDS ORDERED: acetaminophen 325mg tablet PO PRN ×2 (16:30)
[2022-10-10 19:00] VITALS: BP 140/91; PULSE 73; RESP 18; TEMP 97.3; O2SAT 97
--- NOTE | 2022-10-11 05:16 | NUR ---
Nursing Progress Note: Problem: Pt admitted on 5150 for DTO from our ER. Pt reported that he constantly has thoughts of killing people. He does not know where he can live. He is homeless, does not eat and not wearing shoes. Pt has history of Schizophrenia, bipolar,anxiety,antisocial. Interventions: 1:1 assessment, therapeutic conversation, active listening, ensured contract for safety, and Q15 minute safety checks. Response: Patient is pleasant and cooperative; no medications this shift. He denies SI, A/VH and endorses HI; conversations appear incongruent. Upon parts data writer asking, patient explained (with smile and cheerful affect) there is no one in particular he wants to cause harm and unable to give any reasons he wants to cause harm. Patient remained in his room throughout this shift; observed dancing and watching himself in the mirror prior to bed; later observed sleeping and does not appear to be having difficulty. Plan: Crisis interruption and stabilization in a safe and therapeutic environment.
[2022-10-11 07:00] VITALS: RESP 16; O2SAT 99
[2022-10-11 07:18] VITALS: BP 118/67; PULSE 67; RESP 16; TEMP 97.7; O2SAT 99
--- NOTE | 2022-10-11 15:36 | NUR ---
Nursing Progress Note: Problem: Pt admitted on 5150 for DTO from our ER. Pt reported that he constantly has thoughts of killing people. He does not know where he can live. He is homeless, does not eat and not wearing shoes. Pt has history of Schizophrenia, bipolar,anxiety,antisocial. Interventions: 1:1 assessment, therapeutic conversation, active listening, ensured contract for safety, and Q15 minute safety checks. Response: Pt comes out of room for meals and snacks, he hangs out for short periods of time in the community room. Pt heard responding to internal stimuli in his room talking loudly and animatedly to persons unseen. However, pt denies AH/VH. He also denies SI and when asked about HI today he responded, "not right now." Pt is guarded during his interactions with staff. Plan: Crisis interruption and stabilization in a safe and therapeutic environment, the [facility] plans to conserve him.
[2022-10-11 19:00] VITALS: BP 134/69; PULSE 71; RESP 16; TEMP 98.1; O2SAT 100
[2022-10-11] MEDS ORDERED: LORazepam 1 MG tablet PO ONE (19:32)
[2022-10-11] MEDS ORDERED: risperiDONE 2mg tablet PO ONE (19:33)
--- NOTE | 2022-10-12 05:42 | NUR ---
Nursing Progress Note: Problem: Pt admitted on 5150 for DTO from our ER. Pt reported that he constantly has thoughts of killing people. He does not know where he can live. He is homeless, does not eat and not wearing shoes. Pt has history of Schizophrenia, bipolar,anxiety,antisocial. Interventions: 1:1 assessment, therapeutic conversation, active listening, ensured contract for safety, and Q15 minute safety checks. Response: Patient is guarded and resistive to care. He was observed responding to IS and staring in the mirror; shortly after began talking to PCT about being in long-term for killing people. Patient was offered one time orders for Risperidone 2mg PO and Ativan 1mg PO; he would only agree to the Ativan. Upon ad writer asking he repeated several different ways that he just didn't want to. Ativan appeared to have positive effect as he seemed less intense. He participated in HS snack, watched TV in the community room and briefly paced the unit. Observed sleeping and did not appear to be having difficulty. Plan: Crisis interruption and stabilization in a safe and therapeutic environment.
[2022-10-12 07:33] VITALS: BP 99/48; PULSE 65; RESP 16; TEMP 97.8; O2SAT 100
[2022-10-12 10:03] LABS: HEMOGLOBIN A1C 5.5 % (4.5-6.2)
[2022-10-12 10:08] LABS: CHOL/HDL RATIO 2.4 (0.00-4.99); CHOLESTEROL 135 MG/DL (0-200); HDL CHOLESTEROL 57 MG/DL (35-60); LDL CHOLESTEROL 67 MG/DL (50-100); TRIGLYCERIDES 73 MG/DL (20-135)
--- NOTE | 2022-10-12 12:22 | NUR ---
Nurse note: Pt was overheard in his room shouting about murder and "Ass raping". Upon visualizing pt, he was wearing headphones and talking to himself in the mirror and pointing at someone that was not there. Pt continued to talk about killing someone and ass raping him. Pt stopped when he noticed this nurse looking into his room. Pt was not rapping with the music but definitely responding to internal stimuli.
--- NOTE | 2022-10-12 16:39 | NUR ---
Agitation: PT continues to talk loudly to himself into the mirror about killing people and making racial slurs and hateful statements towards women. Asked pt how he is feeling. PT states he is venting about "Too many [employer] radio stations". Pt calms down.
[2022-10-12] MEDS ORDERED: LORazepam 1 MG tablet PO ONE (16:56)
[2022-10-12] MEDS: risperiDONE 2mg tablet PO ONE ×2 (16:59→17:04)
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
[2022-10-12 19:00] VITALS: BP 115/63; PULSE 67; RESP 14; RESP 16; TEMP 97.4; O2SAT 98; O2SAT 99
[2022-10-12] MEDS ORDERED: risperiDONE 2mg tablet PO SCH (21:00)
[2022-10-12] MEDS: LORazepam 1 MG tablet PO PRN ×2 (21:50→22:27)
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
[2022-10-13 07:39] VITALS: BP 109/64; PULSE 74; RESP 16; TEMP 98.3; O2SAT 100
[2022-10-13] MEDS: LORazepam 1 MG tablet PO PRN ×2 (10:28→21:06)
--- NOTE | 2022-10-13 17:30 | NUR ---
Nursing Progress Note: Problem: Pt admitted on 5150 for DTO from our ER. Pt reported that he constantly has thoughts of killing people. He does not know where he can live. He is homeless, does not eat and not wearing shoes. Pt has history of Schizophrenia; Bipolar; Anxiety; & Antisocial. Interventions: Provide medication administration & medication management; Maintained a safe & supportive environment; Clear & simple instructions; Direction & encouragement regarding performance of ADLs; monitored behaviors & maintained clear boundaries; Patient physical assessment & 1:1 patient interview; Therapeutic conversation & active listening; Patient education & monitoring. Response: Received patient at 0615 and found him sleeping in his bed. Patient slept until the breakfast trays arrived and he quickly ate breakfast and left the Community Room. Patient has rapid speech but had not been responding to Internal Stimuli or appear to have AH/VH during the morning until approximately 1020. Patient came outside his room with vigor and was speaking very loudly and rapidly, and said to this Pressfitter The Dr. ordered new medications for me but do I have to take them? I already told you that I would not take any of your medications. Informed the patient did you agree with the physician that you would take the medications that they order? The patient replied loudly I dont think so. Informed the patient that he should speak to his doctor tomorrow about his medications and make a final decision as to whether or not he is going to take the medications. Patient stated Yes, very loudly and with animation, and returned to his room. Went to the patients room and asked the patient if he would like to take some Ativan at 1027, and he reported I need that, and Ativan was given at that time. Patient has been sleeping in bed all day with the exception of lunch times and snack times on the unit. Plan: Encourage by MD/SDC TEACHER to start on oral medication to reduce internal stimuli and assist patient in improving Psychiatric diagnosis with Crisis interruption and stabilization in a safe and therapeutic environment.
[2022-10-13 19:46] VITALS: BP 119/71; PULSE 66; RESP 16; TEMP 97.8; O2SAT 100
[2022-10-13] MEDS ORDERED: QUEtiapine 25mg tablet PO SCH (21:00)
--- NOTE | 2022-10-14 04:32 | NUR ---
Nursing Progress Note: Problem: Pt admitted on 5150 for DTO from our ER. Pt reported that he constantly has thoughts of killing people. He does not know where he can live. He is homeless, does not eat and not wearing shoes. Pt has history of Schizophrenia, bipolar,anxiety,antisocial. Interventions: 1:1 assessment, therapeutic conversation, active listening, ensured contract for safety, and Q15 minute safety checks. Response: Patient remains resistive to care and impulsive; he refused to answering assessment questions. Patient was compliant with medication this shift; he was started on 50mg Quetiapine and PRN Ativan was provided. Patient continued to refuse to talk with headline writer and put headphones back on after headline writer explained meds. He remained in his room throughout this shift; observed sleeping and does not appear to be having difficulty. Plan: Crisis interruption and stabilization in a safe and therapeutic environment.
--- NOTE | 2022-10-14 07:23 | NUR ---
Initial: Pt admitted w/ psychosis per EMR. Currently on Regular diet w/ mostly 100% intake of meals meeting est needs at this time. LBM 10/10. No nutrition intervention implemented at this time, will continue to monitor. Recs: 1. Continue Regular diet as tolerated 2. Bowel care PRN 3. Weekly wts Addendum: 10/14/22 at [address] Amended: Links added.
[2022-10-14 07:52] VITALS: BP 131/67; PULSE 73; RESP 16; TEMP 98.6; O2SAT 98
[2022-10-14] MEDS: LORazepam 1 MG tablet PO PRN ×3 (08:48→21:04)
--- NOTE | 2022-10-14 11:41 | NUR ---
[facility] is going forward with [facility] referral for conservatorship. MARIA LUISA Villeda
[2022-10-14 19:56] VITALS: BP 123/72; PULSE 66; RESP 16; TEMP 97.8; O2SAT 100
[2022-10-14] MEDS: QUEtiapine 25mg tablet PO SCH (21:04)
--- NOTE | 2022-10-15 04:44 | NUR ---
Nursing Progress Note: Problem: Pt admitted on 5150 for DTO from our ER. Pt reported that he constantly has thoughts of killing people. He does not know where he can live. He is homeless, does not eat and not wearing shoes. Pt has history of Schizophrenia, bipolar,anxiety,antisocial. Interventions: 1:1 assessment, therapeutic conversation, active listening, ensured contract for safety, and Q15 minute safety checks. Response: Patient is restless and impulsive while awake; continues to be resistive to care. He refuses to answer assessment questions. PRN Ativan provided and Quetiapine was increased to 75mg this shift. He was compliant but hesitated; after being told the medication he put it in his mouth and the took it back out to examine then proceeded to take. Patient remained in his room this shift and continues to respond to IS. He is observed sleeping and does not appear to be having difficulty. Plan: Crisis interruption and stabilization in a safe and therapeutic environment.
[2022-10-15 07:30] VITALS: RESP 16; O2SAT 99
[2022-10-15 07:32] VITALS: BP 108/63; PULSE 75; RESP 16; TEMP 98.5; O2SAT 99
[2022-10-15] MEDS: LORazepam 1 MG tablet PO PRN (11:02)
[2022-10-15] MEDS ORDERED: LORazepam 1 MG tablet PO ONE (14:47)
--- NOTE | 2022-10-15 17:37 | NUR ---
Nursing Progress Note: Problem: Pt admitted on 5150 for DTO from our ER. Pt reported that he constantly has thoughts of killing people. He does not know where he can live. He is homeless, does not eat and not wearing shoes. Pt has history of Schizophrenia; Bipolar; Anxiety; & Antisocial. Interventions: Provide medication administration & medication management; Maintained a safe & supportive environment; Clear & simple instructions; Direction & encouragement regarding performance of ADLs; monitored behaviors & maintained clear boundaries; Patient physical assessment & 1:1 patient interview; Therapeutic conversation & active listening; Patient education & monitoring. Response: RN received pt. asleep in bed at start of shift. Pt. awoke and ate breakfast and went back to bed. Pt. stayed in his room until mid-morning. Pt. requested headphones and observed pacing the unit listening to headphones. Pt. requested Ativan for anxiety and received 1mg po with moderate effect. In the afternoon pt. became loud talking on the phone, pacing up and down the hallway and then came to nurses station asking for the phone number for the [facility]. There were no phone numbers for the pt. nor email address and when pt. informed he became agitated and called the pt. advocate and filed a grievance. Pt. was loud on the phone and this RN had to repeatedly tell the pt. to lower his voice. RN received a now dose for Ativan 2mg po and pt. received it with good effect and pt. slept. Plan: Encourage by MD/DIANETICIST to start on oral medication to reduce internal stimuli and assist patient in improving Psychiatric diagnosis with Crisis interruption and stabilization in a safe and therapeutic environment.
[2022-10-15] MEDS: QUEtiapine 25mg tablet PO SCH (19:52)
[2022-10-15 20:00] VITALS: BP 118/54; PULSE 62; RESP 14; TEMP 97.6; O2SAT 98
--- NOTE | 2022-10-15 23:49 | NUR ---
Nursing Progress Note: Chan Problem: Pt admitted on 5150 for DTO from our ER. Pt reported that he constantly has thoughts of killing people. He does not know where he can live. He is homeless, does not eat and not wearing shoes. Pt has history of Schizophrenia; Bipolar; Anxiety; & Antisocial. Interventions: Provide medication administration & medication management; Maintained a safe & supportive environment; Clear & simple instructions; Direction & encouragement regarding performance of ADLs; monitored behaviors & maintained clear boundaries; Patient physical assessment & 1:1 patient interview; Therapeutic conversation & active listening; Patient education & monitoring. Response: RN received pt. in his room listening to headphones dancing. Pt made no eye contact and provided minimal answers to questions. Pt states I am going to sleep now, shut my door. Later the patient was observed to be in the community room watching TV. Pt took HS medications without issue. Pt again, made no eye contact. Pt went to bed shortly after snack time. It did not appear that the pt was responding to IS. Plan: Encourage by MD/RELAY ENGINEER to start on oral medication to reduce internal stimuli and assist patient in improving Psychiatric diagnosis with Crisis interruption and stabilization in a safe and therapeutic environment.
[2022-10-16 07:00] VITALS: RESP 16; O2SAT 100
[2022-10-16] MEDS: LORazepam 1 MG tablet PO PRN (07:46)
[2022-10-16 08:00] VITALS: BP 115/63; PULSE 76; RESP 16; TEMP 97.6; O2SAT 100
--- NOTE | 2022-10-16 09:15 | NUR ---
Sent notes to Public Guardian, Saundra, as requested for LPS evaluation. MARIA LUISA Villeda
[2022-10-16] MEDS ORDERED: LORazepam 1 MG tablet PO ONE (10:15)
[2022-10-16] MEDS: QUEtiapine 25mg tablet PO SCH ×2 (13:17→20:08)
--- NOTE | 2022-10-16 14:16 | NUR ---
5250 upheld for GD
[2022-10-16 19:00] VITALS: BP 122/77; PULSE 88; RESP 18; TEMP 98.4; O2SAT 99
[2022-10-16] MEDS: quetiapine 100mg tablet PO SCH (20:08)
--- NOTE | 2022-10-17 05:32 | NUR ---
Nursing Progress Note: Chan Problem: Pt admitted on 5150 for DTO from our ER. Pt reported that he constantly has thoughts of killing people. He does not know where he can live. He is homeless, does not eat and not wearing shoes. Pt has history of Schizophrenia; Bipolar; Anxiety; & Antisocial. Interventions: Provide medication administration & medication management; Maintained a safe & supportive environment; Clear & simple instructions; Direction & encouragement regarding performance of ADLs; monitored behaviors & maintained clear boundaries; Patient physical assessment & 1:1 patient interview; Therapeutic conversation & active listening; Patient education & monitoring. Response: Patient was observed pacing in bedroom while listening to head phones. Patient made it clear he had no interest in talking to nurse. Patient isolated in room except for coming out to ask for snack. Patient returned to room and clothes door until nurse came to bring in medication. Patients water was replaced and patient took all night medications without arguing. Patient put headphones back on and went back to bed. Plan: Encourage by MD/STRATEGY INTERN to start on oral medication to reduce internal stimuli and assist patient in improving Psychiatric diagnosis with Crisis interruption and stabilization in a safe and therapeutic environment.
[2022-10-17 07:31] VITALS: BP 120/57; PULSE 74; RESP 16; TEMP 98.2; O2SAT 99
[2022-10-17] MEDS: QUEtiapine 25mg tablet PO SCH ×3 (07:52→20:15)
--- NOTE | 2022-10-17 15:21 | NUR ---
ASSISTED OUT-PATIENT TREATMENT CONTACT Chan is apparently involved with Assisted Out-patient treatment through [employer]. manager paid: Tiffanie Tillman MARIA LUISA Villeda
--- NOTE | 2022-10-17 16:46 | NUR ---
Nursing Progress Note: Problem: Pt admitted on 5150 for DTO from our ER. Pt reported that he constantly has thoughts of killing people. He does not know where he can live. He is homeless, does not eat and not wearing shoes. Pt has history of Schizophrenia; Bipolar; Anxiety; & Antisocial. Interventions: Provide medication administration & medication management; Maintained a safe & supportive environment; Clear & simple instructions; Direction & encouragement regarding performance of ADLs; monitored behaviors & maintained clear boundaries; Patient physical assessment & 1:1 patient interview; Therapeutic conversation & active listening; Patient education & monitoring. Response: Patient received resting quietly in bed. Joins his peers in the community room for meals and interacts appropriately. Resistive to assessment but cooperative with medication. Endorses HI stating, I want to hurt other people all the time. All day every day. Patient does not socialize with peers or staff. Appears withdrawn and avoids conversation. Noted dancing in his room with headphones on. Isolates to his room most of the day. Plan: Encourage by MD/LEASE PICKER to start on oral medication to reduce internal stimuli and assist patient in improving Psychiatric diagnosis with Crisis interruption and stabilization in a safe and therapeutic environment.
[2022-10-17 20:00] VITALS: BP 130/78; PULSE 75; RESP 18; TEMP 98.4; O2SAT 99
[2022-10-17] MEDS: quetiapine 100mg tablet PO SCH (20:15)
--- NOTE | 2022-10-17 23:59 | NUR ---
Nursing Progress Note: Problem: Pt admitted on 5150 for DTO from our ER. Pt reported that he constantly has thoughts of killing people. He does not know where he can live. He is homeless, does not eat and not wearing shoes. Pt has history of Schizophrenia; Bipolar; Anxiety; & Antisocial. Interventions: Provide medication administration & medication management; Maintained a safe & supportive environment; Clear & simple instructions; Direction & encouragement regarding performance of ADLs; monitored behaviors & maintained clear boundaries; Patient physical assessment & 1:1 patient interview; Therapeutic conversation & active listening; Patient education & monitoring. Response: Patient received sitting in his room listening to headphones. Patient gives short abrupt answers. Resistive to assessment but continues to endorse homicidal ideation. Denies all other mental health symptoms. Patient isolates to his room all evening except for snack. Takes medication as ordered then goes to bed. Plan: Encourage by MD/LIP CUTTER AND SCORER to start on oral medication to reduce internal stimuli and assist patient in improving Psychiatric diagnosis with Crisis interruption and stabilization in a safe and therapeutic environment.
[2022-10-18 07:00] VITALS: RESP 12; O2SAT 99
[2022-10-18 08:00] VITALS: BP 139/65; PULSE 68; RESP 12; TEMP 97.2; O2SAT 99
[2022-10-18] MEDS: QUEtiapine 25mg tablet PO SCH ×3 (08:50→20:29)
[2022-10-18] MEDS: LORazepam 1 MG tablet PO PRN (11:48)
--- NOTE | 2022-10-18 17:00 | NUR ---
Nursing Progress Note: Problem : Pt admitted on 5150 for DTO from our ER. Pt reported that he constantly has thoughts of killing people. He does not know where he can live. He is homeless, does not eat and not wearing shoes. Pt has history of Schizophrenia; Bipolar; Anxiety; & Antisocial. Interventions : Introduced self and established rapport, maintained a safe and supportive environment, provided clear and simple instructions, monitored behaviors and need for intervention, and maintained Q 15min safety checks. Response : Received pt. sleeping in bed at the beginning of the shift. He awoke and attended breakfast in the Group Room. Afterwards, pt. retreated back to his room and this screenplay writer introduced herself and attempted to complete 1:1 at bedside. Pt. presents as cooperative, irritable, impulsive, guarded and withdrawn. He is wearing headphones which he does not take off and does not make eye contact or speak to this screenplay writer. Pt. sticks out his hand in what appears to be an irritable manner to take his medications. This screenplay writer was unable to complete mental health assessment with patient. Later, at approximately noon, pt. approached the nurse's station and held up a handwritten note in the window for this screenplay writer to read. The words were disorganized and did not make sense, however it appeared to possibly elude to paranoid delusional thoughts that pt. believes he has a magnet in his body. This screenplay writer again attempted to speak with pt. at bedside, however he would not verbally communicate and appeared to be using sign language. Pt. held up two fingers close this screenplay writer's face and appeared anxious, PRN Ativan was administered with effectiveness. Pt. continued to use sign language to communicate throughout the shift, he indicated that he was hungry and double portions for meals was ordered. Will continue to monitor closely. Plan : Per CANDELARIO Jay, pt. continues to require a safe and supportive environment.
[2022-10-18 19:00] VITALS: RESP 18; O2SAT 98
[2022-10-18 20:00] VITALS: BP 119/66; PULSE 76; RESP 18; TEMP 98.4; O2SAT 98
[2022-10-18] MEDS: quetiapine 100mg tablet PO SCH (20:29)
--- NOTE | 2022-10-19 02:16 | NUR ---
Nursing Progress Note: Problem : Pt admitted on 5150 for DTO from our ER. Pt reported that he constantly has thoughts of killing people. He does not know where he can live. He is homeless, does not eat and not wearing shoes. Pt has history of Schizophrenia; Bipolar; Anxiety; & Antisocial. Interventions : Attempted to establish rapport, maintained a safe and supportive environment, provided clear and simple instructions, monitored behaviors and need for intervention, and maintained Q 15min safety checks. Response : Received pt. up in the Group Room eating dinner at the beginning of the shift, he remains withdrawn and was not observed to be interacting with others. Pt. later attended snack and afterwards retreated to his room where he proceeded to isolate. This telegraphic typewriter mechanic attempted to establish rapport and complete 1:1 assessment with pt. however he was not receptive to this. Pt. took his medications and then waved this telegraphic typewriter mechanic out of his room stating, "Later." He continues to make minimal eye contact and does not engage in conversation. Pt. did not attempt to communicate using sign language as he had done the previous shift, and he presented with decreased irritability. Pt. appears to be resting comfortably, will continue to monitor. Plan : Per CANDELARIO Jay, pt. continues to require a safe and supportive environment.
[2022-10-19 07:00] VITALS: RESP 16; O2SAT 99
[2022-10-19 08:00] VITALS: BP 108/72; PULSE 68; RESP 16; TEMP 98.6; O2SAT 99
[2022-10-19] MEDS: LORazepam 1 MG tablet PO PRN ×3 (08:03→19:35)
[2022-10-19] MEDS: QUEtiapine 25mg tablet PO SCH ×4 (08:03→21:00)
[2022-10-19] MEDS ORDERED: haloperidol 5mg tablet PO ONE (08:40)
[2022-10-19] MEDS ORDERED: LORazepam 1 MG tablet PO ONE (08:40)
[2022-10-19] MEDS ORDERED: diphenhydrAMINE 25mg capsule PO ONE (08:40)
--- NOTE | 2022-10-19 14:52 | NUR ---
Nursing Progress Note: Problem: Pt admitted on 5150 for DTO from our ER. Pt reported that he constantly has thoughts of killing people. He does not know where he can live. He is homeless, does not eat and not wearing shoes. Pt has history of Schizophrenia; Bipolar; Anxiety; & Antisocial. Interventions: Attempted to introduce self and establish rapport. Maintained a safe and supportive environment. Administered prescribed and PRN meds as needed. Provided clear and simple instructions. Monitored behaviors and need for intervention. Monitored and maintained Q 15min safety checks. Response: Pt refused morning assessment. He said, "I don't care; I'm getting angry, get out of my room." He took his morning medications with a PRN Ativan but then refused his 1300 Seroquel. He was up for meals and snacks but retreats quickly back to his room. He spent the larger part of the afternoon behind a closed door, in his room cussing and shouting as if he were speaking to someone. When attempts were made to console him he would demand staff to close his door and leave him alone; stressing, "leave me alone." Will continue to monitor closely. Plan: Per CANDELARIO Jay, pt. continues to require a safe and supportive environment.
[2022-10-19 19:00] VITALS: RESP 14; O2SAT 99
[2022-10-19 19:27] VITALS: BP 159/99; PULSE 73; RESP 14; TEMP 97.8; O2SAT 99
[2022-10-19] MEDS: quetiapine 100mg tablet PO SCH (19:35)
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
[2022-10-20 07:00] VITALS: RESP 16; O2SAT 98
[2022-10-20 07:23] VITALS: BP 117/65; PULSE 83; RESP 16; TEMP 98.2; O2SAT 98
[2022-10-20] MEDS: QUEtiapine 25mg tablet PO SCH ×2 (07:54→08:00)
[2022-10-20] MEDS: LORazepam 1 MG tablet PO PRN ×2 (08:26→14:46)
[2022-10-20] MEDS ORDERED: quetiapine 100mg tablet PO SCH (13:00)
--- NOTE | 2022-10-20 16:14 | NUR ---
Nursing Progress Note: Problem: Pt admitted on 5150 for DTO from our ER. Pt reported that he constantly has thoughts of killing people. He does not know where he can live. He is homeless, does not eat and not wearing shoes. Pt has history of Schizophrenia; Bipolar; Anxiety; & Antisocial. Interventions: Attempted to introduce self and establish rapport. Maintained a safe and supportive environment. Administered prescribed and PRN meds as needed. Provided clear and simple instructions. Monitored behaviors and need for intervention. Monitored and maintained Q 15min safety checks. Response: Patient received resting quietly in his room with the door closed. Uncooperative with assessment. Refuses Seroquel stating, It makes me angry. Patient requests PRN Ativan which is given with good effect. Patient eats meals in the community room and interacts very little with staff and peers. Possibly responding to internal stimuli. Noted laughing/ talking loudly to himself in his room. Refuses 1300 Seroquel after which time he is heard yelling and swearing in his room. PRN Ativan is offered and accepted with good effect. Patient is guarded, withdrawn and isolative. He gives short abrupt answers and can be intrusive/ intimidating at times. Plan: Per CANDELARIO Jay, pt. continues to require a safe and supportive environment. Addendum: 10/20/22 at 1817 by Yamileth Manzo RN In the evening the patient asks staff about making a boxing instructor using aluminum foil after which he returned headphones missing the foil wrapping on the batteries. Security is called and patient is searched which the patient allows without issue. No weapons or foil pieces are found on the patient or in his room.
--- NOTE | 2022-10-20 17:23 | NUR ---
Room and person searched: Pt made comments about how he can make a "box repairer" with a pen, aluminum and paper machette. Searched pts room but unable to find any evidence. Pt then turned in his headphones for new batteries. Pts batteries were stripped of the aluminum wrapping. Called security and searched pts room again and they searched his body. Unable to find any weapons.
[2022-10-20 19:00] VITALS: RESP 18; O2SAT 98
[2022-10-20 19:52] VITALS: BP 115/72; PULSE 84; RESP 18; TEMP 98.3; O2SAT 98
[2022-10-20] MEDS: OLANZapine 5mg rapidly disint. tablet PO SCH (20:00)
[2022-10-20] MEDS: quetiapine 100mg tablet PO SCH (21:00)
--- NOTE | 2022-10-21 02:33 | NUR ---
Nursing Progress Note: Problem: Pt admitted on 5150 for DTO from our ER. Pt reported that he constantly has thoughts of killing people. He does not know where he can live. He is homeless, does not eat and not wearing shoes. Pt has history of Schizophrenia; Bipolar; Anxiety; & Antisocial. Interventions: Attempted to introduce self and establish rapport. Maintained a safe and supportive environment. Administered prescribed and PRN meds as needed. Provided clear and simple instructions. Monitored behaviors and need for intervention. Monitored and maintained Q 15min safety checks. Response: Patient isolated to room most of the evening Patient refused initial assessment. Patient came out for snack and then went back to room. Patient declined to take evening meds stating, "No meds." while laying down on his bed staring out the window. Another nurse on shift tried to give patient his meds at a later time but the patient still refused. Patient in room laying on side remaining quiet at this time. Will continue to monitor. Plan: Per CANDELARIO Jay, pt. continues to require a safe and supportive environment.
--- NOTE | 2022-10-21 07:19 | NUR ---
Reassessment; Pt continues on Regular diet w/ mostly 100% intake of meals meeting est needs at this time. LBM 10/17. No nutrition intervention implemented at this time, will continue to monitor. Recs: 1. Continue Regular diet as tolerated 2. Bowel care PRN 3. Weekly wts Addendum: 10/21/22 at [address] Amended: Links added.
[2022-10-21 07:52] VITALS: BP 119/63; PULSE 71; RESP 16; TEMP 98.3; O2SAT 99
[2022-10-21] MEDS: OLANZapine 5mg rapidly disint. tablet PO SCH ×2 (08:00→20:17)
[2022-10-21] MEDS ORDERED: LORazepam 1 MG tablet PO ONE (09:00)
[2022-10-21] MEDS ORDERED: haloperidol 5mg tablet PO ONE (09:00)
[2022-10-21] MEDS ORDERED: diphenhydrAMINE 25mg capsule PO ONE (09:00)
--- NOTE | 2022-10-21 09:08 | NUR ---
Agitation: Pt is walking the halls talking about "Be very afraid." Pt making statements about MS-13, Nuclear codes, "Getting all of you when I get out". Pt refused all his morning medications. Called CANDELARIO Jay and received orders for PO or IM medications. Pt continues threatening and upsets one of the other pts. Pt then states he can escape any retirement and some other delusional statements. Pt states he would rather take oral meds vs IM meds. PT took the Haldol 10mg, ativan 2mg Benadryl, 50mg PO with security on the unit.
[2022-10-21] MEDS: LORazepam 1 MG tablet PO SCH ×2 (14:00→20:17)
--- NOTE | 2022-10-21 16:53 | NUR ---
Nursing Progress Note: Problem: Pt admitted on 5150 for DTO from our ER. Pt reported that he constantly has thoughts of killing people. He does not know where he can live. He is homeless, does not eat and not wearing shoes. Pt has history of Schizophrenia; Bipolar; Anxiety; & Antisocial. Interventions: Attempted to introduce self and establish rapport. Maintained a safe and supportive environment. Administered prescribed and PRN meds as needed. Provided clear and simple instructions. Monitored behaviors and need for intervention. Monitored and maintained Q 15min safety checks. Response: Patient received resting quietly in his room with the door closed. Refuses 1:1 assessment and medications. States loudly and aggressively. I wont take any of your fucking medications! Try and make me Ill kill you and your entire family! Provider aware. Patient is aggressive and threatening when approached. He spends time in common areas but interacts very little with peers. Wears headphones and appears to be responding to internal stimuli. In the late morning patient becomes agitated pacing the unit and swearing. Hyper verbal making statements about war and building an army. New order given for oral Ativan/ Benadryl/ Haldol which is helpful. Takes a long nap in the afternoon. Refuses new routine Ativan at 1400. Plan: Per CANDELARIO Jay, pt. continues to require a safe and supportive environment.
[2022-10-21 19:00] VITALS: RESP 16; O2SAT 98
[2022-10-21 20:00] VITALS: BP 105/54; PULSE 66; RESP 16; TEMP 97.2; O2SAT 98
[2022-10-21] MEDS: quetiapine 100mg tablet PO SCH (20:17)
--- NOTE | 2022-10-22 01:47 | NUR ---
Nursing Progress Note: Problem: Pt admitted on 5150 for DTO from our ER. Pt reported that he constantly has thoughts of killing people. He does not know where he can live. He is homeless, does not eat and not wearing shoes. Pt has history of Schizophrenia; Bipolar; Anxiety; & Antisocial. Interventions: Attempted to introduce self and establish rapport. Maintained a safe and supportive environment. Administered prescribed and PRN meds as needed. Provided clear and simple instructions. Monitored behaviors and need for intervention. Monitored and maintained Q 15min safety checks. Response: Patient in room sleeping at shift change. Patient isolated to room entire evening. Patient refuses 1;1 assessment saying nothing. Brought patient snacks at snack time. Patient took evening meds w/o complications. Patient refused to talk to this nurse and made a grunting noise took meds, rolled over and went back to sleep. Did not wake patient for 2AM scheduled med pass due to patient sleeping. Plan: Per CANDELARIO Jay, pt. continues to require a safe and supportive environment.
[2022-10-22] MEDS: LORazepam 1 MG tablet PO SCH ×4 (02:00→20:07)
[2022-10-22 07:00] VITALS: BP 107/57; PULSE 53; RESP 16; TEMP 98.3; O2SAT 98
[2022-10-22] MEDS: OLANZapine 5mg rapidly disint. tablet PO SCH ×2 (08:00→20:07)
--- NOTE | 2022-10-22 15:31 | NUR ---
Nursing Progress Note: Problem: Pt admitted on 5150 for DTO from our ER. Pt reported that he constantly has thoughts of killing people. He does not know where he can live. He is homeless, does not eat and not wearing shoes. Pt has history of Schizophrenia; Bipolar; Anxiety; & Antisocial. Interventions: Attempted to introduce self and establish rapport. Maintained a safe and supportive environment. Administered prescribed and PRN meds as needed. Provided clear and simple instructions. Monitored behaviors and need for intervention. Monitored and maintained Q 15min safety checks. Response: Patient received resting quietly in bed. Joins his peers in the community room for meals and interacts appropriately. Refuses 1:1 assessment. Initially refuses medication but takes them after some prompting. Continues to endorse Homicidal ideation, All the time. Appears paranoid and is guarded. Noted napping off and on. Refuses Routine Ativan at 1400 and appears fatigued. Patient isolates to his room most of the day and listens to headphones. Plan: Per CANDELARIO Jay, pt. continues to require a safe and supportive environment.
[2022-10-22 20:00] VITALS: BP 117/55; PULSE 67; RESP 16; TEMP 97; O2SAT 98
[2022-10-22] MEDS: quetiapine 100mg tablet PO SCH (20:07)
--- NOTE | 2022-10-23 01:27 | NUR ---
Nursing Progress Note:Chan Problem: Pt admitted on 5150 for DTO from our ER. Pt reported that he constantly has thoughts of killing people. He does not know where he can live. He is homeless, does not eat and not wearing shoes. Pt has history of Schizophrenia; Bipolar; Anxiety; & Antisocial. Interventions: Attempted to introduce self and establish rapport. Maintained a safe and supportive environment. Administered prescribed and PRN meds as needed. Provided clear and simple instructions. Monitored behaviors and need for intervention. Monitored and maintained Q 15min safety checks. Response: Patient received resting in bed with headphones on. Pt up in the community room for snack time. Pt initially refused oral meds but later accepted with the help of another male co-worker. Pt rambling on about where he is from other things this fha underwriter could not make out. Pt went to his room where he remained for the rest of the evening. Pt appears paranoid and guarded. Plan: Per CANDELARIO Jay, pt. continues to require a safe and supportive environment.
[2022-10-23] MEDS: LORazepam 1 MG tablet PO SCH ×4 (02:00→20:42)
[2022-10-23 07:00] VITALS: RESP 16; O2SAT 99
[2022-10-23 08:00] VITALS: BP 160/50; PULSE 78; RESP 16; TEMP 98.1; O2SAT 99
[2022-10-23] MEDS: OLANZapine 5mg rapidly disint. tablet PO SCH ×2 (08:14→20:40)
--- NOTE | 2022-10-23 16:06 | NUR ---
Nursing Progress Note: Problem: Pt admitted on 5150 for DTO from our ER. Pt reported that he constantly has thoughts of killing people. He does not know where he can live. He is homeless, does not eat and not wearing shoes. Pt has history of Schizophrenia, bipolar,anxiety,antisocial. Interventions: 1:1 assessment, therapeutic communication, active listening, medication administration/education/monitoring, provided limit setting, distraction, redirection, reality orientation, and Q15 minute safety checks. Response: Pt was up for breakfast and cooperative with medications. Pt reported that he was "good." At around 0940, pt asked for a patient's rights handbook and was provided with one. Around 10 minutes later he went to the nurse's station and asked for the number for the [employer] dispatch department. He then approached this RN in the charting room addressed this RN by name and asked again for the number for [employer]. Education/reality orientation calmly provided that we cannot give this out to pt's on an acute psych unit. Pt reluctantly accepted this and returned to his room. Pt was cooperative with his 1400 PO Ativan. Plan: Crisis interruption and stabilization in a safe and therapeutic environment, the [facility] plans to conserve him.
[2022-10-23 19:00] VITALS: RESP 16; O2SAT 100
[2022-10-23 20:00] VITALS: BP 123/79; PULSE 81; RESP 16; TEMP 97.7; O2SAT 100
[2022-10-23] MEDS: quetiapine 100mg tablet PO SCH (20:41)
[2022-10-24] MEDS: LORazepam 1 MG tablet PO SCH ×4 (02:00→20:21)
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
[2022-10-24 07:30] VITALS: RESP 16; O2SAT 97
[2022-10-24] MEDS: OLANZapine 5mg rapidly disint. tablet PO SCH ×2 (07:50→20:21)
[2022-10-24 08:00] VITALS: BP 105/54; PULSE 84; RESP 16; TEMP 97.7; O2SAT 97
--- NOTE | 2022-10-24 17:44 | NUR ---
Nursing Progress Note: Problem: Pt admitted on 5150 for DTO from our ER. Pt reported that he constantly has thoughts of killing people. He does not know where he can live. He is homeless, does not eat and not wearing shoes. Pt has history of Schizophrenia, bipolar,anxiety,antisocial. Interventions: 1:1 assessment, therapeutic communication, active listening, medication administration/education/monitoring, provided limit setting, distraction, redirection, reality orientation, and Q15 minute safety checks. Response: RN received pt. asleep in bed at start of shift. Pt. awoke for breakfast and took all medications. Pt. was observed pacing the halls and listening to the headphones. 1:1 done at bedside, pt. gives minimal information and appears agitated with RNs questions. Pt. denies all psych symptoms. Pt. overheard talking to himself in his room in the afternoon stating, Im in here unjustly, no Ill show you! Mother ! Pt. napped in the afternoon approx. 2 hours. Pt. awoke and took afternoon medications. Pt. overheard talking with a male peer about delusional things, pt. states, thats how they put me in here, its a conspiracy. Plan: Crisis interruption and stabilization in a safe and therapeutic environment, the [facility] plans to [facility] him.
[2022-10-24 19:00] VITALS: RESP 18; O2SAT 99
[2022-10-24 20:00] VITALS: BP 115/67; PULSE 73; RESP 18; TEMP 98.6; O2SAT 99
[2022-10-24] MEDS: quetiapine 100mg tablet PO SCH (20:21)
[2022-10-25] MEDS: LORazepam 1 MG tablet PO SCH ×4 (02:00→20:23)
--- NOTE | 2022-10-25 04:58 | NUR ---
Nursing Progress Note: Problem: Pt admitted on 5150 for DTO from our ER. Pt reported that he constantly has thoughts of killing people. He does not know where he can live. He is homeless, does not eat and not wearing shoes. Pt has history of Schizophrenia, bipolar, anxiety, antisocial. Interventions: 1:1 assessment, therapeutic communication, active listening, medication administration/education/monitoring, provided limit setting, distraction, redirection, reality orientation, and Q15 minute safety checks. Response: Pt resting in bed at start of shift. Vitals obtained pt reports no pain. Pt denies SI/AH/VH. When asked how he is doing he states Im fine. HS meds administered. Pt came out of room for snack and went back to sleep. Non-administered 0200 Ativan pt asleep. Pt had an uneventful night and slept well. Plan: Crisis interruption and stabilization in a safe and therapeutic environment, the [facility] plans to conserve him.
[2022-10-25 07:30] VITALS: RESP 12; O2SAT 98
[2022-10-25 07:31] VITALS: BP 110/55; PULSE 87; RESP 12; TEMP 98.4; O2SAT 98
[2022-10-25] MEDS: OLANZapine 5mg rapidly disint. tablet PO SCH ×2 (08:22→20:24)
--- NOTE | 2022-10-25 17:40 | NUR ---
Nursing Progress Note: Problem: Pt admitted on 5150 for DTO from our ER. Pt reported that he constantly has thoughts of killing people. He does not know where he can live. He is homeless, does not eat and not wearing shoes. Pt has history of Schizophrenia, bipolar,anxiety,antisocial. Interventions: 1:1 assessment, therapeutic communication, active listening, medication administration/education/monitoring, provided limit setting, distraction, redirection, reality orientation, and Q15 minute safety checks. Response: RN received pt. asleep in bed at start of shift. Pt. awoke for breakfast and took all medications. Pt. was observed pacing the halls and listening to the headphones. 1:1 done at bedside, pt. gives minimal information and appears agitated with RNs questions. Pt. denies all psych symptoms. Pt. overheard talking to himself and swearing loudly in his room. When asked if he is OK, pt. does not respond. Plan: Crisis interruption and stabilization in a safe and therapeutic environment, the [facility] plans to conserve him.
[2022-10-25 19:00] VITALS: RESP 18; O2SAT 100
[2022-10-25 20:00] VITALS: BP 125/65; PULSE 67; RESP 18; TEMP 98.1; O2SAT 100
[2022-10-25] MEDS: quetiapine 100mg tablet PO SCH (20:24)
[2022-10-26] MEDS: LORazepam 1 MG tablet PO SCH ×4 (02:00→19:49)
--- NOTE | 2022-10-26 04:21 | NUR ---
Nursing Progress Note: Problem: Pt admitted on 5150 for DTO from our ER. Pt reported that he constantly has thoughts of killing people. He does not know where he can live. He is homeless, does not eat and not wearing shoes. Pt has history of Schizophrenia, bipolar, anxiety, antisocial. Interventions: 1:1 assessment, therapeutic communication, active listening, medication administration/education/monitoring, provided limit setting, distraction, redirection, reality orientation, and Q15 minute safety checks. Response: Pt resting in bed at start of shift. Vitals obtained pt reports no pain. Pt denies SI/AH/VH. When asked how he is doing he states bianca. HS meds administered. Snack was given, pt stayed in his room the entire shift. No aggressive behavior witnessed on this shift. Non-administered 0200 Ativan pt asleep. Pt had an uneventful night and slept well. Plan: Crisis interruption and stabilization in a safe and therapeutic environment, the [facility] plans to conserve him.
[2022-10-26 07:00] VITALS: RESP 12; O2SAT 99
[2022-10-26 08:00] VITALS: BP 120/70; PULSE 79; RESP 12; TEMP 98; O2SAT 99
[2022-10-26] MEDS: OLANZapine 5mg rapidly disint. tablet PO SCH (08:17)
--- NOTE | 2022-10-26 15:07 | NUR ---
Nursing Progress Note Problem: Pt admitted on 5150 for DTO from our ER. Pt reported that he constantly has thoughts of killing people. He does not know where he can live. He is homeless, does not eat and not wearing shoes. Pt has history of Schizophrenia, bipolar, anxiety, antisocial. Interventions: 1:1 assessment, therapeutic communication, active listening, medication administration/education/monitoring, provided limit setting, distraction, redirection, reality orientation, and Q15 minute safety checks. Response: Received pt. sleeping in bed at start of shift. Pt. awoke for breakfast and was cooperative with vitals. He took AM medications w/o issue. Pt isolated to his room for most of the day and listened to music on headphones. He napped in afternoon and took a shower in the morning. Pt postures a bit when attempts made to talk with him, but is cooperative. Pt denies SI/HI and A/VHs. Pt able to ask for his needs to be met appropriately today. Pt did not need PRN meds as of the writing of this note. Plan: Crisis interruption and stabilization in a safe and therapeutic environment, the [facility] plans to conserve him.
[2022-10-26 19:00] VITALS: RESP 16; O2SAT 99
[2022-10-26] MEDS: OLANZAPINE 5 MG TABLET PO SCH (19:49)
[2022-10-26] MEDS: quetiapine 100mg tablet PO SCH (19:49)
[2022-10-26 19:57] VITALS: BP 118/67; PULSE 76; RESP 16; TEMP 97.6; O2SAT 99
--- NOTE | 2022-10-27 01:57 | NUR ---
Nursing Progress Note Problem: Pt admitted on 515 for DTO from our ER. Pt reported that he constantly has thoughts of killing people. He does not know where he can live. He is homeless, does not eat and not wearing shoes. Pt has history of Schizophrenia, bipolar, anxiety, antisocial. Interventions: 1:1 assessment, therapeutic communication, active listening, medication administration/education/monitoring, provided limit setting, distraction, redirection, reality orientation, and Q15 minute safety checks. Response: Pt awake in room with headphones on at start of shift. Pt cooperative with assessment but quickly becomes impatient. He is disorganized and tangential. He denies A/V/H but later was standing in lion yelling obviously in response to internal stimuli. Given his HS meds a little early at 1930 was helpful. Pt calmed down and no more yelling. He isolated to the room other than a few times he came out to walk up and down in the lion. Pt is sleeping at this. Plan: Crisis interruption and stabilization in a safe and therapeutic environment, the [facility] plans to conserve him.
[2022-10-27] MEDS: LORazepam 1 MG tablet PO SCH ×5 (02:00→20:01)
[2022-10-27 07:00] VITALS: RESP 14; O2SAT 100
[2022-10-27 07:55] VITALS: BP 118/78; PULSE 78; RESP 14; TEMP 97.9; O2SAT 100
[2022-10-27] MEDS: OLANZapine 5mg rapidly disint. tablet PO SCH (08:31)
--- NOTE | 2022-10-27 15:31 | NUR ---
Nursing Progress Note: Problem: Pt admitted on 5150 for DTO from our ER. Pt reported that he constantly has thoughts of killing people. He does not know where he can live. He is homeless, does not eat and not wearing shoes. Pt has history of Schizophrenia, bipolar, anxiety, antisocial. Interventions: 1:1 assessment, therapeutic communication, active listening, medication administration/education/monitoring, provided limit setting, distraction, redirection, reality orientation, and Q15 minute safety checks. Response: Received patient asleep at change of shift. AM medications and 1:1 done at bedside. Pt was cooperative and took medications with no issues. Denies all mental health symptoms. Pt attended breakfast and lunch but spent the majority of the shift isolating himself to his bedroom utilizing the headphones. Pt was guarded and interacted minimally with nurse. Plan: Crisis interruption and stabilization in a safe and therapeutic environment, the [facility] plans to conserve him.
[2022-10-27 19:03] VITALS: RESP 14; O2SAT 99
[2022-10-27 19:55] VITALS: BP 123/68; PULSE 64; RESP 16; TEMP 97; O2SAT 100
[2022-10-27] MEDS: OLANZAPINE 5 MG TABLET PO SCH (20:01)
[2022-10-27] MEDS: quetiapine 100mg tablet PO SCH (20:01)
--- NOTE | 2022-10-27 21:02 | NUR ---
Nursing Progress Note: Problem: Pt admitted on 5150 for DTO from our ER. Pt reported that he constantly has thoughts of killing people. He does not know where he can live. He is homeless, does not eat and not wearing shoes. Pt has history of Schizophrenia, bipolar, anxiety, antisocial. Interventions: 1:1 assessment, therapeutic communication, active listening, medication administration/education/monitoring, provided limit setting, distraction, redirection, reality orientation, and Q15 minute safety checks. Response: Pt was walking in the lion at change of shift. 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 Pt made a phone call and then spoke about a court date and attempted to engage in a conversation about meth with his peers. Pts were redirected. Pt requests ativan and is very polite saying "please and thank you" often. Pt had a snack in the group room and took HS meds before going to bed. Plan: Crisis interruption and stabilization in a safe and therapeutic environment, the [facility] plans to conserve him.
[2022-10-28] MEDS: LORazepam 1 MG tablet PO SCH ×4 (02:00→20:00)
[2022-10-28 07:00] VITALS: RESP 14; O2SAT 100
[2022-10-28] MEDS: OLANZapine 5mg rapidly disint. tablet PO SCH (07:52)
[2022-10-28 08:00] VITALS: BP 108/52; PULSE 62; RESP 18; TEMP 98.6; O2SAT 99
--- NOTE | 2022-10-28 14:55 | NUR ---
Nursing Progress Note: Problem: Pt admitted on 5150 for DTO from our ER. Pt reported that he constantly has thoughts of killing people. He does not know where he can live. He is homeless, does not eat and not wearing shoes. Pt has history of Schizophrenia, bipolar, anxiety, antisocial. Interventions: 1:1 assessment, therapeutic communication, active listening, medication administration/education/monitoring, provided limit setting, distraction, redirection, reality orientation, and Q15 minute safety checks. Response: Received patient asleep at change of shift. AM medications and 1:1 done at bedside. Pt was cooperative and took medications with no issues. He continues to deny all mental health symptoms. Pt attended breakfast and lunch but spent the majority of the shift isolating himself to his bedroom. Pt continues to be guarded and keeps to himself. Plan: Crisis interruption and stabilization in a safe and therapeutic environment, the [facility] plans to conserve him.
[2022-10-28 18:32] VITALS: RESP 18; O2SAT 99
[2022-10-28 19:34] VITALS: BP 120/55; PULSE 67; RESP 16; TEMP 97.6; O2SAT 98
[2022-10-28] MEDS: quetiapine 100mg tablet PO SCH (20:00)
[2022-10-28] MEDS: OLANZAPINE 5 MG TABLET PO SCH (20:00)
[2022-10-28] MEDS: NICOTINE POLACRILEX 2 MG LOZENGE BC PRN (21:20)
--- NOTE | 2022-10-28 22:31 | NUR ---
Nursing Progress Note: Problem: Pt admitted on 5150 for DTO from our ER. Pt reported that he constantly has thoughts of killing people. He does not know where he can live. He is homeless, does not eat and not wearing shoes. Pt has history of Schizophrenia, bipolar, anxiety, antisocial. Interventions: 1:1 assessment, therapeutic communication, active listening, medication administration/education/monitoring, provided limit setting, distraction, redirection, reality orientation, and Q15 minute safety checks. Response:Pt was in the group room at change of shift. He spent the majority of the evening socializing with peers and listening to music in the rec room. Pt is guarded and hyperverbal talking about conspiracies, roman catholic, govt, and pharmaceutical companies. Pt statements remain disorganized and grandiose, "It's all about the congregational symbolism and money, I can cure any type of disease and it all has to do with witch craft and holiness, that's all you need." Pt denies s/i, denies a/vh. Pt had a snack, took evening meds and listened to music before going to bed. Plan: Crisis interruption and stabilization in a safe and therapeutic environment, the [facility] plans to conserve him.
[2022-10-29] MEDS: LORazepam 1 MG tablet PO SCH ×4 (02:00→20:40)
[2022-10-29 07:00] VITALS: RESP 16; O2SAT 99
[2022-10-29 07:29] VITALS: BP 116/52; PULSE 75; RESP 16; TEMP 97.9; O2SAT 99
[2022-10-29] MEDS: OLANZapine 5mg rapidly disint. tablet PO SCH (08:22)
[2022-10-29] MEDS: NICOTINE POLACRILEX 2 MG LOZENGE BC PRN ×2 (08:40→16:48)
--- NOTE | 2022-10-29 17:44 | NUR ---
Nursing Progress Note: Problem: Pt admitted on 5150 for DTO from our ER. Pt reported that he constantly has thoughts of killing people. He does not know where he can live. He is homeless, does not eat and not wearing shoes. Pt has history of Schizophrenia, bipolar, anxiety, antisocial. Interventions: 1:1 assessment, therapeutic communication, active listening, medication administration/education/monitoring, provided limit setting, distraction, redirection, reality orientation, and Q15 minute safety checks. Response: Received patient asleep at change of shift. AM medications and 1:1 done at bedside. Pt was cooperative and took medications with no issues. He continues to deny all mental health symptoms. Pt attended breakfast and lunch but spent the majority of the shift isolating himself to his bedroom. Pt continues to be guarded and keeps to himself. Plan: Crisis interruption and stabilization in a safe and therapeutic environment, the [facility] plans to conserve him.
[2022-10-29 20:00] VITALS: BP 116/53; PULSE 84; RESP 16; TEMP 98.6; O2SAT 98
[2022-10-29] MEDS: OLANZAPINE 5 MG TABLET PO SCH (20:40)
[2022-10-29] MEDS: quetiapine 100mg tablet PO SCH (20:40)
--- NOTE | 2022-10-30 01:23 | NUR ---
Nursing Progress Note: Chan Problem: Pt admitted on 5150 for DTO from our ER. Pt reported that he constantly has thoughts of killing people. He does not know where he can live. He is homeless, does not eat and not wearing shoes. Pt has history of Schizophrenia, bipolar, anxiety, antisocial. Interventions: 1:1 assessment, therapeutic communication, active listening, medication administration/education/monitoring, provided limit setting, distraction, redirection, reality orientation, and Q15 minute safety checks. Response: Received patient up pacing the unit with headphones on. Pt took off headphones to talk to this RN, smiling, he states he is doing well and denies MH symptoms at this time. Denies any pain. He was up in the dining room for snacks and took all HS medications without issue at the bedside. Pt went to bed shortly after med pass. Pt seemed less guarded. Plan: Crisis interruption and stabilization in a safe and therapeutic environment, the [facility] plans to conserve him.
[2022-10-30] MEDS: LORazepam 1 MG tablet PO SCH ×4 (02:00→21:10)
[2022-10-30 07:30] VITALS: RESP 16; O2SAT 99
[2022-10-30 07:36] VITALS: BP 106/51; PULSE 74; RESP 16; TEMP 98.6; O2SAT 99
[2022-10-30] MEDS: OLANZapine 5mg rapidly disint. tablet PO SCH (08:00)
--- NOTE | 2022-10-30 11:34 | NUR ---
Reassessment: Pt continues eating well, documented with 100% PO intake on regular diet while receiving double protein TID exceeding estimated nutrient needs. [facility] 10/27. No nutrition intervention implemented at this time. Will continue to follow per LOS. Recommendations: 1. Continue regular diet; double eggs WB, double protein BIDLD per diet order 2. Bowel care PRN 3. Weekly scaled wts Addendum: 10/30/22 at [address] Amended: Links added.
--- NOTE | 2022-10-30 18:11 | NUR ---
Nursing Progress Note: Problem: Pt admitted on 5150 for DTO from our ER. Pt reported that he constantly has thoughts of killing people. He does not know where he can live. He is homeless, does not eat and not wearing shoes. Pt has history of Schizophrenia, bipolar,anxiety,antisocial. Interventions: 1:1 assessment, therapeutic communication, active listening, medication administration/education/monitoring, provided limit setting, distraction, redirection, reality orientation, and Q15 minute safety checks. Response: RN received pt. in bed asleep at start of shift. Pt. awoke and took medication and ate breakfast. Pt. napped intermittently most of the AM. In the afternoon pt. more lively and pacing the hallway listening to headphones. Pt. given afternoon Ativan. Pt. began talking loudly and rapidly, talking about [employer] and his plans for making money. Pt. given verbal redirection and was able to calm himself down. Plan: Crisis interruption and stabilization in a safe and therapeutic environment, the pending sale to [facility] plans to conserve him.
[2022-10-30 19:00] VITALS: BP 112/46; PULSE 72; RESP 18; TEMP 98.7; O2SAT 99
[2022-10-30] MEDS: OLANZAPINE 5 MG TABLET PO SCH (21:10)
[2022-10-30] MEDS: quetiapine 100mg tablet PO SCH (21:10)
[2022-10-31] MEDS: LORazepam 1 MG tablet PO SCH ×4 (02:00→20:36)
--- NOTE | 2022-10-31 02:05 | NUR ---
Nursing Progress Note: Chan Problem: Pt admitted on 5150 for DTO from our ER. Pt reported that he constantly has thoughts of killing people. He does not know where he can live. He is homeless, does not eat and not wearing shoes. Pt has history of Schizophrenia, bipolar,anxiety,antisocial. Interventions: 1:1 assessment, therapeutic communication, active listening, medication administration/education/monitoring, provided limit setting, distraction, redirection, reality orientation, and Q15 minute safety checks. Response: RN received pt. isolating in room with headphones on. Pt cooperative with care. Pt observed in the rec room for snacks, pt denies MH symptoms. Pt compliant with HS medications and went to bed shortly after. Plan: Crisis interruption and stabilization in a safe and therapeutic environment, the [facility] plans [facility] him.
[2022-10-31 07:30] VITALS: RESP 16; O2SAT 99
[2022-10-31 08:00] VITALS: BP 115/60; PULSE 73; RESP 16; TEMP 97.9; O2SAT 99
[2022-10-31] MEDS: OLANZapine 5mg rapidly disint. tablet PO SCH (08:02)
--- NOTE | 2022-10-31 17:50 | NUR ---
Nursing Progress Note: Problem: Pt admitted on 5150 for DTO from our ER. Pt reported that he constantly has thoughts of killing people. He does not know where he can live. He is homeless, does not eat and not wearing shoes. Pt has history of Schizophrenia, bipolar, anxiety, antisocial. Interventions: 1:1 assessment, therapeutic communication, active listening, medication administration/education/monitoring, provided limit setting, distraction, redirection, reality orientation, and Q15 minute safety checks. Response: RN received pt. in bed asleep at start of shift. Pt. awoke and took medication and ate breakfast. Pt. napped most of the AM. After snack pt. again napped. Pt. given afternoon Ativan and continued napping. Pt. awoke late afternoon and overheard talking loudly and rapidly on the phone, however, pt.s phone call was short and then pt. observed pacing on the unit. Pt. gives limited information during 1:1 interview, appearing agitated with RN asking questions and gives minimal to no response to questions. Pt. denies all psych symptoms. Plan: Crisis interruption and stabilization in a safe and therapeutic environment, the [facility] plans to conserve him.
[2022-10-31] MEDS: NICOTINE POLACRILEX 2 MG LOZENGE BC PRN (17:56)
[2022-10-31 19:00] VITALS: BP 123/75; PULSE 63; RESP 16; TEMP 97.7; O2SAT 99
[2022-10-31 20:00] VITALS: RESP 14; O2SAT 97
[2022-10-31] MEDS: QUEtiapine 25mg tablet PO SCH (20:37)
[2022-10-31] MEDS: OLANZAPINE 5 MG TABLET PO SCH (20:39)
[2022-11-01] MEDS: LORazepam 1 MG tablet PO SCH ×3 (02:00→14:26)
[2022-11-01 07:00] VITALS: RESP 16; O2SAT 99
[2022-11-01] MEDS: OLANZapine 5mg rapidly disint. tablet PO SCH (07:58)
[2022-11-01 08:00] VITALS: BP 119/66; PULSE 68; RESP 12; TEMP 98.2; O2SAT 99
--- NOTE | 2022-11-01 17:48 | NUR ---
Nursing Progress Note: Problem: Pt admitted on 5150 for DTO from our ER. Pt reported that he constantly has thoughts of killing people. He does not know where he can live. He is homeless, does not eat and not wearing shoes. Pt has history of Schizophrenia, bipolar, anxiety, antisocial. Interventions: 1:1 assessment, therapeutic communication, active listening, medication administration/education/monitoring, provided limit setting, distraction, redirection, reality orientation, and Q15 minute safety checks. Response: Patient was up for breakfast. He was compliant with AM meds, then went back to isolate in his room. He does not like to be asked about his mental health, and gets agitated with the questions. Patient denies having any MH symptoms. He has been cooperative and polite otherwise. In order to not have to wake patient at 0200 for Ativan, it has been changed from scheduled q6 hours to TID PRN per CANDELARIO Jay. He has not been loud today, and no outbursts have been heard. . Plan: Crisis interruption and stabilization in a safe and therapeutic environment, the county plans to conserve him.
[2022-11-01 19:35] VITALS: BP 119/52; PULSE 74; RESP 18; TEMP 97.9; O2SAT 96
[2022-11-01 19:49] VITALS: RESP 18; O2SAT 96
[2022-11-01] MEDS: QUEtiapine 25mg tablet PO SCH (20:36)
[2022-11-01] MEDS: OLANZAPINE 5 MG TABLET PO SCH (20:37)
[2022-11-01] MEDS: LORazepam 1 MG tablet PO PRN (20:38)
--- NOTE | 2022-11-02 05:55 | NUR ---
Nursing Progress Note: Problem: Pt admitted on 5150 for DTO from our ER. Pt reported that he constantly has thoughts of killing people. He does not know where he can live. He is homeless, does not eat and not wearing shoes. Pt has history of Schizophrenia, bipolar, anxiety, antisocial. Interventions: 1:1 assessment, therapeutic communication, active listening, medication administration/education/monitoring, provided limit setting, distraction, redirection, reality orientation, and Q15 minute safety checks. Response: Patient is pleasant and cooperative with care; compliant with medication. Appeared anxious and PRN Ativan provided. Patient denies SI, HI, A/VH; appears to be responding to IS and remains guarded with MH assessment only answering with a quick "no" or "I'm fine." Patient remained in his room the majority of this shift; observed sleeping and does not appear to be having difficulty. Plan: Crisis interruption and stabilization in a safe and therapeutic environment, the [facility] plans to conserve him.
[2022-11-02 07:00] VITALS: RESP 16; O2SAT 99
[2022-11-02 08:00] VITALS: BP 100/53; PULSE 52; RESP 12; TEMP 97.9; O2SAT 98
[2022-11-02] MEDS: OLANZapine 5mg rapidly disint. tablet PO SCH (08:02)
--- NOTE | 2022-11-02 17:03 | NUR ---
Nursing Progress Note: Chan Problem: Pt admitted on 5150 for DTO from our ER. Pt reported that he constantly has thoughts of killing people. He does not know where he can live. He is homeless, does not eat and not wearing shoes. Pt has history of Schizophrenia, bipolar, anxiety, antisocial. Interventions: Medication administration, 1:1 assessment, maintained a safe and supportive environment, provided clear and simple instructions, provided encouragement regarding performance of ADLs, monitored behaviors and maintained clear boundaries, maintained Q15 minute safety checks. Response: Pt. received asleep and awoke for his medication, which he took without hesitation. Pt. has poor eye contact, and refused to participate in 1:1 assessment stating no, Im not talking and went on to about delusions of [facility] and sate charges pending. Pt. ate his meals in the main dining room with cohorts but keeps to himself, he was observed socializing with two different male cohorts but briefly, he was also observed approaching them intermittently about his time in the assisted Pt. walked around the unit at length listening to headphones and dancing. He has good hygiene, hair is short with buzz cut, and he is wearing some street clothes. Pt. does not engage with this [facility]ha underwriter. Plan: Crisis interruption and stabilization in a safe and therapeutic environment, the [facility] plans to conserve him.
[2022-11-02] MEDS: NICOTINE POLACRILEX 2 MG LOZENGE BC PRN (17:32)
[2022-11-02] MEDS: LORazepam 1 MG tablet PO PRN ×2 (17:32→20:52)
[2022-11-02 19:50] VITALS: BP 140/57; PULSE 100; RESP 18; TEMP 98.1; O2SAT 97
[2022-11-02] MEDS: QUEtiapine 25mg tablet PO SCH (20:52)
[2022-11-02] MEDS: OLANZAPINE 5 MG TABLET PO SCH (20:52)
--- NOTE | 2022-11-03 04:09 | NUR ---
Nursing Progress Note: Problem: Pt admitted on 5150 for DTO from our ER. Pt reported that he constantly has thoughts of killing people. He does not know where he can live. He is homeless, does not eat and not wearing shoes. Pt has history of Schizophrenia, bipolar, anxiety, antisocial. Interventions: 1:1 assessment, therapeutic communication, active listening, medication administration/education/monitoring, provided limit setting, distraction, redirection, reality orientation, and Q15 minute safety checks. Response: Patient is pleasant; remains guarded and isolative. He was cooperative with medication. PRN Ativan provided. Patient did not participate in MH assessment; left his headphones on while bid writer passed his medication. He briefly walked the lion and received HS snack prior to bed; observed sleeping and does not appear to be having difficulty. Plan: Crisis interruption and stabilization in a safe and therapeutic environment, the [facility] plans to conserve him.
[2022-11-03 07:00] VITALS: RESP 18; O2SAT 96
[2022-11-03 08:00] VITALS: BP 130/64; PULSE 72; RESP 18; TEMP 97.9; O2SAT 96
[2022-11-03] MEDS: OLANZapine 5mg rapidly disint. tablet PO SCH (08:23)
[2022-11-03] MEDS: NICOTINE POLACRILEX 2 MG LOZENGE BC PRN ×2 (10:35→17:06)
[2022-11-03] MEDS: LORazepam 1 MG tablet PO PRN ×2 (10:35→17:06)
--- NOTE | 2022-11-03 14:53 | NUR ---
Nursing Progress Note Problem: Pt admitted on 5150 for DTO from our ER. Pt reported that he constantly has thoughts of killing people. He does not know where he can live. He is homeless, does not eat and not wearing shoes. Pt has history of Schizophrenia, bipolar, anxiety, antisocial. Interventions: 1:1 assessment, therapeutic communication, active listening, medication administration/education/monitoring, provided limit setting, distraction, redirection, reality orientation, and Q15 minute safety checks. Response: Received pt. sleeping in bed at start of shift. Pt. awoke for breakfast and was cooperative with vitals. He took AM medications w/o issue. Pt paced the unit listening to music most of the morning while making statements related to government and sabianism control and demonic references. Pt given PRN Ativan and nicotine lozenge in AM with good effect. Pt ate meals in community room with others and was appropriate. Pt overall cooperative and asked for needs appropriately. Pt denies SI/HI and A/VHs. Pt did not participate in groups today. Plan: Crisis interruption and stabilization in a safe and therapeutic environment, the county plans to cons[facility] him.
[2022-11-03 20:00] VITALS: BP 123/75; PULSE 90; RESP 16; TEMP 98.5; O2SAT 99
[2022-11-03] MEDS: OLANZAPINE 5 MG TABLET PO SCH (20:42)
[2022-11-03] MEDS: QUEtiapine 25mg tablet PO SCH (20:42)
--- NOTE | 2022-11-04 01:33 | NUR ---
Nursing Progress Note: Chan Problem: Pt admitted on 5150 for DTO from our ER. Pt reported that he constantly has thoughts of killing people. He does not know where he can live. He is homeless, does not eat and not wearing shoes. Pt has history of Schizophrenia, bipolar, anxiety, antisocial. Interventions: 1:1 assessment, therapeutic communication, active listening, medication administration/education/monitoring, provided limit setting, distraction, redirection, reality orientation, and Q15 minute safety checks. Response: Received pt. pacing the unit with headphones on. Pt calm and cooperative with care. Pt states he is doing well.overheard pt talking to another peer in the hallway about the Feds and funding. He was also talking about usp life in [place] and how its the hardest. Pt up for snack time and took all HS medications without issue. Pt to bed shortly after med pass. Plan: Crisis interruption and stabilization in a safe and therapeutic environment, the [facility] plans to conserve him.
[2022-11-04 07:00] VITALS: RESP 18; O2SAT 98
[2022-11-04 08:00] VITALS: BP 130/70; PULSE 72; RESP 18; TEMP 98.6; O2SAT 98
[2022-11-04] MEDS: LORazepam 1 MG tablet PO PRN ×3 (08:01→20:11)
[2022-11-04] MEDS: OLANZapine 5mg rapidly disint. tablet PO SCH (08:01)
[2022-11-04] MEDS: NICOTINE POLACRILEX 2 MG LOZENGE BC PRN ×3 (09:10→20:13)
--- NOTE | 2022-11-04 10:01 | NUR ---
BRUCE Lezama -# [phone] C MARIA LUISA Hahn
--- NOTE | 2022-11-04 13:14 | NUR ---
Sent last two weeks of notes (10/21-11/03) to Public Guardian Saundra Taylor at her request. Chan has court on 11/11/22. MARIA LUISA Villeda
--- NOTE | 2022-11-04 14:23 | NUR ---
Nursing Progress Note: Problem: Pt admitted on 5150 for DTO from our ER. Pt reported that he constantly has thoughts of killing people. He does not know where he can live. He is homeless, does not eat and not wearing shoes. Pt has history of Schizophrenia, bipolar,anxiety,antisocial. Interventions: 1:1 assessment, therapeutic communication, active listening, ensured contract for safety, medication administration/education/monitoring, behavior monitoring and intervention as needed; provided distraction, redirection, positive reinforcement, and Q15 minute safety checks. Response: Pt was up for breakfast, pt was cooperative with medications. Pt denies depression, SI/HI/AH/VH. Pt listens to the radio headphones, paces, and makes phone calls. Pt is mostly isolative to self. No unsafe behaviors noted this shift. Plan: Stabilization with medication management and monitoring in a safe and therapeutic environment. Pt is on a TCON. He has a court fanny for 11/11/22. Pt is awaiting placement.
[2022-11-04 19:00] VITALS: RESP 18; O2SAT 99
[2022-11-04 20:00] VITALS: BP 135/63; PULSE 69; RESP 18; TEMP 98.2; O2SAT 99
[2022-11-04] MEDS: QUEtiapine 25mg tablet PO SCH (20:10)
[2022-11-04] MEDS: OLANZAPINE 5 MG TABLET PO SCH (20:11)
--- NOTE | 2022-11-05 01:50 | NUR ---
Nursing Progress Note: Problem: Pt admitted on 5150 for DTO from our ER. Pt reported that he constantly has thoughts of killing people. He does not know where he can live. He is homeless, does not eat and not wearing shoes. Pt has history of Schizophrenia, bipolar,anxiety,antisocial. Interventions: One to one with the patient to assess severity of thought disorder and for presence of agitation. He is on q 15 minute safety checks and is observed by staff when up on the unit for any aggressive or assaultive behaviors. Patient requested and received ativan with HS medications. He was assessed for medication side effects. Response: The patient was cooperative during the evening assessment but was guarded. He initially denied having any kind of mental health symptoms but he had a response delay and periods of poor eye contact. Toward the end of the assessment he stated that he does occasionally hears voices then added, "I used to think I have a chip in my nose" but did not elaborate. He reports that his concentration and focus were poor. He was stated that he would like to be discharged to the [facility]. He was medication compliant and denied medication side effects. He did not have any agitated or threatening behaviors on the unit this evening. Plan: Continue to observe patient closely on the unit for any agitation of threatening behaviors and intervene accordingly. Continue q 15 minute safety checks. Assess every shift and as needed for severity of thought disorder.
[2022-11-05 07:00] VITALS: RESP 16; O2SAT 100
[2022-11-05 08:00] VITALS: BP 104/47; PULSE 68; RESP 16; TEMP 98.7; O2SAT 100
[2022-11-05] MEDS: OLANZapine 5mg rapidly disint. tablet PO SCH (08:06)
[2022-11-05] MEDS: NICOTINE POLACRILEX 2 MG LOZENGE BC PRN (09:36)
--- NOTE | 2022-11-05 14:30 | NUR ---
Nursing Progress Note: Problem: Pt admitted on 5150 for DTO from our ER. Pt reported that he constantly has thoughts of killing people. He does not know where he can live. He is homeless, does not eat and not wearing shoes. Pt has history of Schizophrenia, bipolar,anxiety,antisocial. Interventions: 1:1 assessment, therapeutic communication, active listening, ensured contract for safety, medication administration/education/monitoring, behavior monitoring and intervention as needed; provided distraction, redirection, positive reinforcement, and Q15 minute safety checks. Response: Pt was up for breakfast, pt was cooperative with his routine Zydis. Pt reports that he is "all right." Pt denied depression, anxiety, SI/HI/AH/VH. Pt exercises in his room. He was observed doing pull ups on his bedroom door. Pt is a trigger for some of his peers due statements he makes about being a follower of [employer]. Plan: Stabilization with medication management and monitoring in a safe and therapeutic environment. Pt is on a TCON. He has a court fanny for 11/11/22. Pt is awaiting placement.
[2022-11-05 19:00] VITALS: RESP 18; O2SAT 99
[2022-11-05 20:00] VITALS: BP 126/75; PULSE 65; RESP 18; TEMP 98; O2SAT 99
[2022-11-05] MEDS: OLANZAPINE 5 MG TABLET PO SCH (20:28)
[2022-11-05] MEDS: LORazepam 1 MG tablet PO PRN (20:28)
[2022-11-05] MEDS: QUEtiapine 25mg tablet PO SCH (20:28)
--- NOTE | 2022-11-06 04:34 | NUR ---
Nursing Progress Note: Problem: Pt admitted on 5150 for DTO from our ER. Pt reported that he constantly has thoughts of killing people. He does not know where he can live. He is homeless, does not eat and not wearing shoes. Pt has history of Schizophrenia, bipolar, anxiety, antisocial. Interventions: 1:1 assessment, therapeutic communication, active listening, ensured contract for safety, medication administration/education/monitoring, behavior monitoring and intervention as needed; provided distraction, redirection, positive reinforcement, and Q15 minute safety checks. Response: Pt was walking the halls at start of shift. 1:1 assessment pt denies wanting to hurt self and others, denies AH/VH. Pt was observed pacing in his room talking to himself about gangs and getting agitated. HS meds administered along with PRN Ativan. Pt was polite when HS meds was given and said thank you. Pt had snack and went to bed. Pt sleep through the night. Plan: Stabilization with medication management and monitoring in a safe and therapeutic environment. Pt is on a TCON. He has a court date for 11/11/22. Pt is awaiting placement.
[2022-11-06 07:38] VITALS: BP 117/49; PULSE 78; RESP 16; TEMP 98.4; O2SAT 97
[2022-11-06] MEDS: OLANZapine 5mg rapidly disint. tablet PO SCH (08:00)
[2022-11-06] MEDS: LORazepam 1 MG tablet PO PRN ×2 (12:38→17:49)
--- NOTE | 2022-11-06 16:34 | NUR ---
Nursing Progress Note: Problem: Pt admitted on 5150 for DTO from our ER. Pt reported that he constantly has thoughts of killing people. He does not know where he can live. He is homeless, does not eat and not wearing shoes. Pt has history of Schizophrenia, bipolar,anxiety,antisocial. Interventions: 1:1 assessment, therapeutic communication, active listening, ensured contract for safety, medication administration/education/monitoring, behavior monitoring and intervention as needed; provided distraction, redirection, positive reinforcement, and Q15 minute safety checks. Response: Pt up for breakfast. He has no complaints and denies A/VH, no delusional statements made. Prior to lunch, patient was pacing in his room, loudly arguing with an unseen person. It sounded as though he was arguing with a printer slotter feeder. Patient was offered Ativan 2 mg PO and accepted it. Again toward the end of the shift, patient became loud, pacing more, rapping loudly in the hallway, but was easily redirected. Plan: Stabilization with medication management and monitoring in a safe and therapeutic environment. Pt is on a TCON. He has a court fanny for 11/11/22. Pt is awaiting placement.
[2022-11-06] MEDS: NICOTINE POLACRILEX 2 MG LOZENGE BC PRN (17:49)
[2022-11-06 19:00] VITALS: BP 128/84; PULSE 70; RESP 16; TEMP 98.7; O2SAT 99
[2022-11-06] MEDS: quetiapine 100mg tablet PO SCH (21:17)
[2022-11-06] MEDS: OLANZAPINE 5 MG TABLET PO SCH (21:18)
--- NOTE | 2022-11-07 04:40 | NUR ---
Nursing Progress Note: Problem: Pt admitted on 5150 for DTO from our ER. Pt reported that he constantly has thoughts of killing people. He does not know where he can live. He is homeless, does not eat and not wearing shoes. Pt has history of Schizophrenia, bipolar,anxiety,antisocial. Interventions: 1:1 assessment, therapeutic communication, active listening, ensured contract for safety, medication administration/education/monitoring, behavior monitoring and intervention as needed; provided distraction, redirection, positive reinforcement, and Q15 minute safety checks. Response: Patient ambulated around unit following shift change. 1:1 Interview in patients room. Patient chooses to speak about life in multiple prisons. He takes pride about his criminal acts. Patient denies S/I or H/I, he denies hallucinations. Patient is medication compliant. Patient does on occasion look to be responding to internal stimuli. He yells out on occasion and is noted talking to nobody in the room. Plan: Stabilization with medication management and monitoring in a safe and therapeutic environment. Pt is on a TCON. He has a court fanny for 11/11/22. Pt is awaiting placement.
[2022-11-07 07:00] VITALS: RESP 12; O2SAT 99
[2022-11-07 08:00] VITALS: BP 111/51; PULSE 59; RESP 12; TEMP 97.7; O2SAT 99
[2022-11-07] MEDS: OLANZapine 5mg rapidly disint. tablet PO SCH (08:00)
[2022-11-07] MEDS: NICOTINE POLACRILEX 2 MG LOZENGE BC PRN ×2 (08:53→17:31)
[2022-11-07] MEDS: LORazepam 1 MG tablet PO PRN ×2 (14:05→20:56)
--- NOTE | 2022-11-07 17:25 | NUR ---
Nursing Progress Note: Problem : Pt admitted on 5150 for DTO from our ER. Pt reported that he constantly has thoughts of killing people. He does not know where he can live. He is homeless, does not eat and not wearing shoes. Pt has history of Schizophrenia; Bipolar; Anxiety; & Antisocial. Interventions : Attempted to establish rapport, maintained a safe and supportive environment, provided clear and simple instructions, monitored behaviors and need for intervention, and maintained Q 15min safety checks. Response : Received pt. sleeping in bed at the beginning of the shift, he was awoken to attend breakfast in the Group Room and afterwards retreated back to bed. Pt. was cooperative with his medication, and this headline writer attempted to complete 1:1 at bedside, however pt. continues to make minimal eye contact and responds minimally yes/no to direct questions only. Later, pt. was observed to be up pacing in the hallway talking to a Tech in a hyperverbal and what appeared to be a disorganized manner about multiple topics including using Lazer lights for security systems and artificial intelligence. Pt. uses multiple profanities and appears labile at intervals. Pt. remained up throughout the shift, and was observed to be pacing wearing headphones and making telephone calls at intervals during which he exhibited aggressive verbal behavior requiring redirection. He continued to make random disorganized delusional statements throughout the shift and stated, "Tommie Song is a friend of mine. He bought some of my patents. I can be conserved and still be this smart, like Autistic people." Pt. continued to exhibit some lability and increased irritability, and at approximately 1400 he was observed to be responding aloud to internal stimuli agitatedly stating, "I'm still going to come kill you! Manslaughter can be voluntary!" Pt. accepted PRN Ativan with effectiveness, and he was later observed to be laughing and interacting appropriately with others. Plan : Per CANDELARIO Jay, pt. continues to require medication adjustments and a safe and supportive environment.
[2022-11-07 19:00] VITALS: BP 124/59; PULSE 67; RESP 16; TEMP 98.2; O2SAT 98
[2022-11-07] MEDS: OLANZAPINE 5 MG TABLET PO SCH (20:56)
[2022-11-07] MEDS: quetiapine 100mg tablet PO SCH (20:56)
--- NOTE | 2022-11-08 03:12 | NUR ---
Nursing Progress Note: Problem : Pt admitted on 5150 for DTO from our ER. Pt reported that he constantly has thoughts of killing people. He does not know where he can live. He is homeless, does not eat and not wearing shoes. Pt has history of Schizophrenia; Bipolar; Anxiety; & Antisocial. Interventions : Attempted to establish rapport, maintained a safe and supportive environment, provided clear and simple instructions, monitored behaviors and need for intervention, and maintained Q 15min safety checks. Response : Patient is pleasant and cooperative with care; compliant with medication. PRN Ativan provided. He denies SI and A/VH; no mention of HI this shift and no apparent delusions expressed. He did not appear to be responding to IS and no outbursts/yelling out in lion presented. Patient mostly isolated to his room; briefly participated in HS snack. Patient is observed sleeping and does not appear to be having difficulty. Plan : Per CANDELARIO Jay, pt. continues to require medication adjustments and a safe and supportive environment.
[2022-11-08 07:00] VITALS: RESP 15; O2SAT 99
[2022-11-08 07:36] VITALS: BP 103/54; PULSE 79; RESP 15; TEMP 97.8; O2SAT 99
[2022-11-08] MEDS: OLANZapine 5mg rapidly disint. tablet PO SCH (08:26)
[2022-11-08] MEDS: LORazepam 1 MG tablet PO PRN ×2 (10:22→20:25)
[2022-11-08] MEDS: NICOTINE POLACRILEX 2 MG LOZENGE BC PRN ×2 (10:22→20:44)
--- NOTE | 2022-11-08 16:13 | NUR ---
Nursing Progress Note: Problem : Pt admitted on 5150 for DTO from our ER. Pt reported that he constantly has thoughts of killing people. He does not know where he can live. He is homeless, does not eat and not wearing shoes. Pt has history of Schizophrenia; Bipolar; Anxiety; & Antisocial. Interventions : Attempted to establish rapport, maintained a safe and supportive environment, provided clear and simple instructions, monitored behaviors and need for intervention, and maintained Q 15min safety checks. Response : Received pt. sleeping in bed at the beginning of the shift, he was awoken to attend breakfast in the Group Room and afterwards retreated back to bed as is his routine. 1:1 was completed at bedside, and pt. continues to make minimal eye contact and responds minimally to direct questions only. He denies all MH s/s and states in a dismissive manner, "No, I'm fine." Pt. was not observed to be talking in a hyperverbal manner or making delusional statements as he had been the day before. However, he was observed to be wearing headphones talking aloud to himself at intervals and appeared to be wrapping. Pt. also did not exhibit any agitated outbursts this shift as he had previously exhibited. Pt. requested PRN Ativan for anxiety at approximately 1030, and medication was administered with effectiveness. Pt. was again observed to be pacing wearing headphones and making telephone calls at intervals during the shift. He napped in the afternoon, and was withdrawn from others. Plan : Per CANDELARIO Jay, pt. continues to require medication adjustments and a safe and supportive environment.
[2022-11-08 19:48] VITALS: BP 143/87; PULSE 74; RESP 18; TEMP 98.7; O2SAT 98
[2022-11-08] MEDS: quetiapine 100mg tablet PO SCH (20:24)
[2022-11-08] MEDS: OLANZAPINE 5 MG TABLET PO SCH (20:25)
--- NOTE | 2022-11-09 01:52 | NUR ---
Nursing Progress Note: Problem : Pt admitted on 5150 for DTO from our ER. Pt reported that he constantly has thoughts of killing people. He does not know where he can live. He is homeless, does not eat and not wearing shoes. Pt has history of Schizophrenia; Bipolar; Anxiety; & Antisocial. Interventions : Attempted to establish rapport, maintained a safe and supportive environment, provided clear and simple instructions, monitored behaviors and need for intervention, and maintained Q 15min safety checks. Response : Patient is pleasant and cooperative with care; compliant with medication. PRN Ativan and Nicotine lozenge provided. Patient was a little elevated this shift; laughing loudly and pacing the unit. He was overheard, explaining to a peer, that Joey Capellan and him are best buds. He was observed dancing with a peer in the lion, participated in HS snack and pacing the unit prior to bed; observed sleeping and does not appear to be having difficulty. Plan : Per CANDELARIO Jay, pt. continues to require medication adjustments and a safe and supportive environment.
[2022-11-09 07:00] VITALS: RESP 12; O2SAT 98
--- NOTE | 2022-11-09 07:31 | NUR ---
Reassessment: Pt was changed to vegetarian diet 10/31 for unknown reason, presumably for pt preference? Though continues to consume mostly 100% of meals meeting est needs.LBM 11/06. No nutrition intervention implemented at this time, will continue to monitor. Recommendations: 1. Continue Vegetarian diet 2. Bowel care PRN 3. Weekly scaled wts Addendum: 11/09/22 at [address] Amended: Links added.
[2022-11-09 08:00] VITALS: BP 123/55; PULSE 78; RESP 12; TEMP 97.5; O2SAT 98
--- NOTE | 2022-11-09 08:00 | NUR ---
Episode of Agitation: Pt. was up in the Group Room and sitting at a table with others. He began talking very loudly about rape. When redirected by staff pt. became slightly agitated and stated threateningly, "It's real though! You Should be scared!" He returned back to his room, but continued to talk loudly in an irritable manner making delusional statements such as having a contract with [employer] and his belief that this is why the FBI placed him here. PRN 2mg of Ativan was administered with effectiveness, and will continue to monitor.
[2022-11-09] MEDS: OLANZapine 5mg rapidly disint. tablet PO SCH (08:11)
[2022-11-09] MEDS: LORazepam 1 MG tablet PO PRN ×3 (08:12→20:32)
[2022-11-09] MEDS: NICOTINE POLACRILEX 2 MG LOZENGE BC PRN ×2 (08:12→14:41)
--- NOTE | 2022-11-09 15:16 | NUR ---
Nursing Progress Note Problem: Pt admitted on 515 for DTO from our ER. Pt reported that he constantly has thoughts of killing people. He does not know where he can live. He is homeless, does not eat and not wearing shoes. Pt has history of Schizophrenia, bipolar, anxiety, antisocial. Interventions: 1:1 assessment, therapeutic communication, active listening, medication administration/education/monitoring, provided limit setting, distraction, redirection, reality orientation, and Q15 minute safety checks. Response: Received pt. sleeping in bed at start of shift. Pt. awoke for breakfast and was cooperative with vitals. He took AM medications w/o issue. He asked for anxiety PRN and nicotine David. After breakfast and was given Ativan 2 mg with good results. Pt rested in bed in AM for a couple hours. Pt paced unit halls listening to music after lunch. Pt given PRN Ativan and nicotine lozenge in afternoon as well after talking about homocides in hallway and elevating his voice and intensity. Pt cooperative and asked for needs appropriately. He denies SI/HI and A/VHs. Pt did not participate in "nail painting" group today. Plan: Crisis interruption and stabilization in a safe and therapeutic environment, the [facility] plans to conserve him.
[2022-11-09 19:00] VITALS: RESP 16; O2SAT 98
[2022-11-09 19:38] VITALS: BP 107/57; PULSE 71; RESP 16; TEMP 97.6; O2SAT 98
[2022-11-09] MEDS: quetiapine 100mg tablet PO SCH (20:32)
[2022-11-09] MEDS: OLANZAPINE 5 MG TABLET PO SCH (20:32)
--- NOTE | 2022-11-10 02:56 | NUR ---
Nursing Progress Note: Problem : Pt admitted on 5150 for DTO from our ER. Pt reported that he constantly has thoughts of killing people. He does not know where he can live. He is homeless, does not eat and not wearing shoes. Pt has history of Schizophrenia; Bipolar; Anxiety; & Antisocial. Interventions : Attempted to establish rapport, maintained a safe and supportive environment, provided clear and simple instructions, monitored behaviors and need for intervention, and maintained Q 15min safety checks. Response : Patient is pleasant but guarded; compliant with medication. PRN Ativan provided. Patient didn't respond to MH assessment questions. Mostly isolated to his room and listened to music this shift; provided HS snack and promptly went back to his room. Patient is observed sleeping and does not appear to be having difficulty. Plan : Per CANDELARIO Jay, pt. continues to require medication adjustments and a safe and supportive environment.
[2022-11-10 07:00] VITALS: RESP 18; O2SAT 99
[2022-11-10] MEDS: LORazepam 1 MG tablet PO PRN ×3 (07:41→20:28)
[2022-11-10] MEDS: NICOTINE POLACRILEX 2 MG LOZENGE BC PRN ×2 (07:42→17:25)
[2022-11-10] MEDS: OLANZapine 5mg rapidly disint. tablet PO SCH (07:42)
[2022-11-10 08:00] VITALS: BP 119/59; PULSE 74; RESP 18; TEMP 98; O2SAT 99
--- NOTE | 2022-11-10 14:14 | NUR ---
Nursing Progress Note: Problem: Pt admitted on 5150 for DTO from our ER. Pt reported that he constantly has thoughts of killing people. He does not know where he can live. He is homeless, does not eat and not wearing shoes. Pt has history of Schizophrenia, bipolar,anxiety,antisocial. Interventions: 1:1 assessment, therapeutic communication, active listening, ensured contract for safety, medication administration/education/monitoring, behavior monitoring and intervention as needed; provided distraction, redirection, limit setting, positive reinforcement, and Q15 minute safety checks. Response: Pt was up before breakfast. Pt requested Ativan and a nicotine lozenge for anxiety. Pt was given PRN Ativan 2 mg and a nicotine lozenge at 0741. Pt was cooperative with his scheduled Zydis. Pt paces the hallway with another male peer. Pt is hyperverbal. He tells stories to peers that seem to revolve largely around intoxication and murder. Overheard pt talking about [place] ingestion and about how old school clowns and carnies wore clothes that made it easy for them to murder people. Pt listens to the radio headphones. Pt denied depression, SI/HI/AH/VH today. Plan: Stabilization with medication management and monitoring in a safe and therapeutic environment. Pt is on a TCON. He has a court date set for 11/11/22. Pt is awaiting placement. Addendum: 11/10/22 at 1441 by Camille Barreto RN (Lee) Pt is pacing in the hallway listening to the radio headphones. He will unexpectedly burst out in loud inappropriate, high pitched guffawing laughter. Pt is probably responding to internal stimuli.
[2022-11-10] MEDS ORDERED: iohexol 350MG/ML 100ml bottle IV ONE (15:18)
[2022-11-10 19:50] VITALS: BP 117/62; PULSE 83; RESP 18; TEMP 98.3; O2SAT 98
[2022-11-10] MEDS: quetiapine 100mg tablet PO SCH (20:28)
[2022-11-10] MEDS: OLANZAPINE 5 MG TABLET PO SCH (20:28)
--- NOTE | 2022-11-11 04:31 | NUR ---
Nursing Progress Note: Problem : Pt admitted on 5150 for DTO from our ER. Pt reported that he constantly has thoughts of killing people. He does not know where he can live. He is homeless, does not eat and not wearing shoes. Pt has history of Schizophrenia; Bipolar; Anxiety; & Antisocial. Interventions : Attempted to establish rapport, maintained a safe and supportive environment, provided clear and simple instructions, monitored behaviors and need for intervention, and maintained Q 15min safety checks. Response : Patient is pleasant but guarded; compliant with medication. PRN Ativan provided. Patient didn't respond to MH assessment questions; he puts head phones on and states, "I'm fine." Patient isolated to his room this shift; shaved and ate snack prior to bed. He's observed sleeping and does not appear to be having difficulty. Plan : Per CANDELARIO Jay, pt. continues to require medication adjustments and a safe and supportive environment.
[2022-11-11 07:30] VITALS: RESP 16; O2SAT 98
[2022-11-11] MEDS: OLANZapine 5mg rapidly disint. tablet PO SCH (07:49)
[2022-11-11 07:50] VITALS: BP 113/56; PULSE 71; RESP 16; TEMP 98.1; O2SAT 98
[2022-11-11] MEDS: LORazepam 1 MG tablet PO PRN ×2 (12:16→20:41)
--- NOTE | 2022-11-11 17:12 | NUR ---
Nursing Progress Note: Problem: Pt admitted on 5150 for DTO from our ER. Pt reported that he constantly has thoughts of killing people. He does not know where he can live. He is homeless, does not eat and not wearing shoes. Pt has history of Schizophrenia, bipolar, anxiety, antisocial. Interventions: 1:1 assessment, therapeutic communication, active listening, ensured contract for safety, medication administration/education/monitoring, behavior monitoring and intervention as needed; provided distraction, redirection, limit setting, positive reinforcement, and Q15 minute safety checks. Response: Pt was up before breakfast. Pt was cooperative with his scheduled Zydis. Pt in room listening to headphones through morning/early afternoon. Pt denied depression, SI/AH/VH today, endorses HI but, not right now though. PRN Ativan given @ 1216, prior to patient going to court. Pt accompanied off unit by 2 nurses/security @ [address]. Returned to unit [address] hearing. Pt states, It went ok and requested lunch tray and a sandwich with chips. No noticeable response to IS noted by this nurse. Ate in community rooms, did not interact with other patients, most of time spent in room alone. Plan: Stabilization with medication management and monitoring in a safe and therapeutic environment. Pt is on a TCON. He has a court date set for 11/11/22. Pt is awaiting placement.
[2022-11-11 19:52] VITALS: BP 103/54; PULSE 65; RESP 14; TEMP 98; O2SAT 97
[2022-11-11] MEDS: quetiapine 100mg tablet PO SCH (20:41)
[2022-11-11] MEDS: OLANZAPINE 5 MG TABLET PO SCH (20:41)
--- NOTE | 2022-11-12 02:30 | NUR ---
Nursing Progress Note: Problem : Pt admitted on 5150 for DTO from our ER. Pt reported that he constantly has thoughts of killing people. He does not know where he can live. He is homeless, does not eat and not wearing shoes. Pt has history of Schizophrenia; Bipolar; Anxiety; & Antisocial. Interventions : Attempted to establish rapport, maintained a safe and supportive environment, provided clear and simple instructions, monitored behaviors and need for intervention, and maintained Q 15min safety checks. Response : Patient is pleasant and cooperative with care; compliant with medication. PRN Ativan provided. Patient denies SI, HI, A/VH this shift; no apparent delusions expressed. Patient self isolative to his room. Provided HS snack prior to bed; observed sleeping with no apparent difficulties. Plan : Per CANDELARIO Jay, pt. continues to require medication adjustments and a safe and supportive environment.
[2022-11-12 07:00] VITALS: RESP 18; O2SAT 97
[2022-11-12 07:27] VITALS: BP 94/42; PULSE 58; RESP 18; O2SAT 97
[2022-11-12] MEDS: OLANZapine 5mg rapidly disint. tablet PO SCH (08:01)
[2022-11-12] MEDS: NICOTINE POLACRILEX 2 MG LOZENGE BC PRN (15:30)
[2022-11-12] MEDS: LORazepam 1 MG tablet PO PRN ×2 (15:30→21:09)
--- NOTE | 2022-11-12 15:42 | NUR ---
Therapeutic group DESCRIPTION Daily therapeutic groups support [facility] crisis-recovery environment, and meet medical necessity given the acuity of clients symptoms. Topic: psychosocial educationtriggers resulting in feelings (anxiety, fear, sadness), and what to do? Activity: creating a "mangle catcher" with emotions, then on the inside, an affirmation such as "I am enough." "I am brave." or sayings clients wrote themselves. Client participated in group as evidenced by peer interactions, doing the tactile exercise (folding), helping others and this telegraphic typewriter mechanic with moving chairs and other activities, conversation with peers and staff regarding triggers and trigger reactions, and how to cope in a healthy way. Client stated his response/coping strategy is "Stay calm", and writing poetry. Client interacted with peers, and was patient with a peer who had some intrusive behaviors (putting hand on client's arm to encourage him to stay in group). Client's response was sitting back down, this telegraphic typewriter mechanic said he was welcome to leave, saying, "If it means that much to [peer], I don't mind." INTERVENTION Therapeutic communication, peer support, peer validation, coping skills and psychosocial education. Secondarily--intellectual and physical activity, peer, and staff companionship, alleviating and discouraging isolation.
--- NOTE | 2022-11-12 16:44 | NUR ---
Nursing Progress Note: Chan Problem: Pt admitted on 5150 for DTO from our ER. Pt reported that he constantly has thoughts of killing people. He does not know where he can live. He is homeless, does not eat and not wearing shoes. Pt has history of Schizophrenia, bipolar, anxiety, antisocial. Interventions: Medication administration, 1:1 MH assessment, maintained a safe and supportive environment, provided clear and simple instructions, provided encouragement regarding performance of ADLs, monitored behaviors and maintained clear boundaries, maintained Q15 minute safety checks. Response: Pt. received asleep and awoke for his medication, which he took without hesitation. Pt. was willing to discuss LBM but stated I dont want to talk when attempting to completed 1:1 assessment. Pt. spent most of the morning walking the unit halls and listening to headphones. Pt. was observed conversing with male cohort. Today a significant decrease was observed in pt. grandiose delusional statements, he does not appear to be responding to IS. Pt. ate all meals in the main dining room with cohorts, but often eats alone with his tray in his lap. Pt. approached underwriter solicitation director later in the afternoon and requested Ativan and nicotine lozenge for feeling anxious He has good hygiene, hair is short with buzz cut, and is wearing street clothes. Plan: Crisis interruption and stabilization in a safe and therapeutic environment, the [facility] plans to conserve him.
[2022-11-12 19:36] VITALS: BP 140/83; PULSE 77; RESP 14; TEMP 97.5; O2SAT 98
[2022-11-12] MEDS: quetiapine 100mg tablet PO SCH (21:08)
[2022-11-12] MEDS: OLANZAPINE 5 MG TABLET PO SCH (21:08)
--- NOTE | 2022-11-13 02:31 | NUR ---
Nursing Progress Note: Problem : Pt admitted on 5150 for DTO from our ER. Pt reported that he constantly has thoughts of killing people. He does not know where he can live. He is homeless, does not eat and not wearing shoes. Pt has history of Schizophrenia; Bipolar; Anxiety; & Antisocial. Interventions : Attempted to establish rapport, maintained a safe and supportive environment, provided clear and simple instructions, monitored behaviors and need for intervention, and maintained Q 15min safety checks. Response : Patient is pleasant and cooperative; compliant with medication. PRN Ativan provided. Denies SI, HI, A/VH; observed responding to IS and talking about "satanic presybeterian" loudly outside his room. Patient participated in HS snack and briefly watched TV in the recreation room prior to bed; observed sleeping and does not appear to be having difficulty. Plan : Per CANDELARIO Jay, pt. continues to require medication adjustments and a safe and supportive environment.
[2022-11-13 07:30] VITALS: RESP 16; O2SAT 98
[2022-11-13] MEDS: OLANZapine 5mg rapidly disint. tablet PO SCH (07:54)
[2022-11-13 08:00] VITALS: BP 100/45; PULSE 68; RESP 16; TEMP 98; O2SAT 98
[2022-11-13] MEDS: LORazepam 1 MG tablet PO PRN ×2 (16:12→20:16)
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
[2022-11-13 20:00] VITALS: BP 149/81; PULSE 105; RESP 18; TEMP 98.1; O2SAT 98
[2022-11-13] MEDS: NICOTINE POLACRILEX 2 MG LOZENGE BC PRN (20:15)
[2022-11-13] MEDS: quetiapine 100mg tablet PO SCH (20:15)
[2022-11-13] MEDS: OLANZAPINE 5 MG TABLET PO SCH (20:16)
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
[2022-11-14 07:01] VITALS: RESP 18; O2SAT 98
[2022-11-14] MEDS: OLANZapine 5mg rapidly disint. tablet PO SCH (08:05)
[2022-11-14 08:29] VITALS: BP 98/64; PULSE 79; RESP 12; TEMP 97.6; O2SAT 98
--- NOTE | 2022-11-14 14:17 | NUR ---
Sent placement packet to [place] office. MARIA LUISA Villeda
[2022-11-14] MEDS: LORazepam 1 MG tablet PO PRN ×2 (15:57→20:23)
[2022-11-14] MEDS: NICOTINE POLACRILEX 2 MG LOZENGE BC PRN (15:57)
--- NOTE | 2022-11-14 17:25 | NUR ---
Nursing Progress Note: Problem: Pt admitted on 5150 for DTO from our ER. Pt reported that he constantly has thoughts of killing people. He does not know where he can live. He is homeless, does not eat and not wearing shoes. Pt has history of Schizophrenia, bipolar, anxiety, antisocial. Interventions: Medication administration, 1:1 MH assessment, maintained a safe and supportive environment, provided clear and simple instructions, provided encouragement regarding performance of ADLs, monitored behaviors and maintained clear boundaries, maintained Q15 minute safety checks. Response: Patient received sleeping, but he was up for breakfast and AM med pass. He is polite and thankful as he receives his AM medications. After breakfast he puts on headphones and relaxes in his room, or does some exercises. He occasionally takes off the headphones and will say some racist or gang-related remarks, but they are not really directed at anybody. For the most part patient is cooperative, polite, and med compliant. His hygiene is good and he showers often. Patient dresses as well as he can. He denies all MH symptoms, and there has been no mood lability or aggressive behaviors today. Plan: Crisis interruption and stabilization in a safe and therapeutic environment, the [facility] plans to conserve him.
[2022-11-14 19:41] VITALS: BP 127/70; PULSE 74; RESP 18; TEMP 97.7; O2SAT 99
[2022-11-14] MEDS: quetiapine 100mg tablet PO SCH (20:23)
[2022-11-14] MEDS: docusate sod 100mg capsule PO SCH (20:23)
[2022-11-14] MEDS: OLANZAPINE 5 MG TABLET PO SCH (20:23)
--- NOTE | 2022-11-15 05:20 | NUR ---
Nursing Progress Note: Problem : Pt admitted on 5150 for DTO from our ER. Pt reported that he constantly has thoughts of killing people. He does not know where he can live. He is homeless, does not eat and not wearing shoes. Pt has history of Schizophrenia; Bipolar; Anxiety; & Antisocial. Interventions : Attempted to establish rapport, maintained a safe and supportive environment, provided clear and simple instructions, monitored behaviors and need for intervention, and maintained Q 15min safety checks. Response : Patient is pleasant (remains guarded) with care; compliant with medication. PRN Ativan provided. He denies SI, HI, A/VH; no apparent delusions expressed but responding as minimal as possible. Patient provided HS snack prior to bed; observed sleeping and does not appear to be having difficulty. Plan : Per CANDELARIO Jay, pt. continues to require medication adjustments and a safe and supportive environment.
[2022-11-15 07:00] VITALS: RESP 18; O2SAT 98
[2022-11-15] MEDS: OLANZapine 5mg rapidly disint. tablet PO SCH (07:59)
[2022-11-15] MEDS: docusate sod 100mg capsule PO SCH ×2 (07:59→20:08)
[2022-11-15] MEDS: multivitamins, therapeutics tablet PO SCH (07:59)
[2022-11-15 08:26] VITALS: BP 105/52; PULSE 52; RESP 14; TEMP 98.5; O2SAT 98
[2022-11-15] MEDS: LORazepam 1 MG tablet PO PRN ×2 (12:37→16:39)
[2022-11-15] MEDS: NICOTINE POLACRILEX 2 MG LOZENGE BC PRN (16:39)
--- NOTE | 2022-11-15 17:26 | NUR ---
Nursing Progress Note: Problem: Pt admitted on 5150 for DTO from our ER. Pt reported that he constantly has thoughts of killing people. He does not know where he can live. He is homeless, does not eat and not wearing shoes. Pt has history of Schizophrenia, bipolar, anxiety, antisocial. Interventions: Medication administration, 1:1 MH assessment, maintained a safe and supportive environment, provided clear and simple instructions, provided encouragement regarding performance of ADLs, monitored behaviors and maintained clear boundaries, maintained Q15 minute safety checks. Response: Patient slept until breakfast, but was compliant with breakfast and AM medication. He had asked for a multi-vitamin and stool softener, which he started this morning. Patient reports a BM yesterday. He continues to be cooperative and polite, but guarded. Patient napped after breakfast, but was up for snack time. He left when group therapy started. At ~1100, patient was in his room making anti-social and delusional statements about [employer] and some people that go there. He was upsetting people, so Ativan 2mg PRN was administered with good relief. He has remained calm and thankful for medications. Plan: Crisis interruption and stabilization in a safe and therapeutic environment, the [facility] plans to conserve him.
[2022-11-15 19:00] VITALS: BP 108/41; PULSE 74; RESP 16; TEMP 97.8; O2SAT 98
[2022-11-15] MEDS: quetiapine 100mg tablet PO SCH (20:08)
[2022-11-15] MEDS: OLANZAPINE 5 MG TABLET PO SCH (20:09)
--- NOTE | 2022-11-16 03:10 | NUR ---
Nursing Progress Note: Problem : Pt admitted on 5150 for DTO from our ER. Pt reported that he constantly has thoughts of killing people. He does not know where he can live. He is homeless, does not eat and not wearing shoes. Pt has history of Schizophrenia; Bipolar; Anxiety; & Antisocial. Interventions : Attempted to establish rapport, maintained a safe and supportive environment, provided clear and simple instructions, monitored behaviors and need for intervention, and maintained Q 15min safety checks. Response : Patient is pleasant and cooperative with care; compliant with medication. He denies SI, HI, A/VH; no apparent delusions expressed this shift but remains guarded and provides minimal responses. Patient mostly self isolative to his room; provided HS snack prior to bed. He's observed sleeping and does not appear to be having difficulty. Plan : Per CANDELARIO Jay, pt. continues to require medication adjustments and a safe and supportive environment.
[2022-11-16 07:00] VITALS: RESP 12; O2SAT 99
--- NOTE | 2022-11-16 07:34 | NUR ---
Reassessment: Pt continues on Vegetarian diet w/ mostly 100% intake of meals meeting est needs.LBM 11/12 receiving routine colace. No nutrition intervention implemented at this time, will continue to monitor. Recommendations: 1. Continue Vegetarian diet 2. Bowel care PRN 3. Weekly scaled wts Addendum: 11/16/22 at [address] Amended: Links added.
[2022-11-16 08:00] VITALS: BP 95/34; PULSE 71; RESP 12; TEMP 96.9; O2SAT 99
[2022-11-16] MEDS: OLANZapine 5mg rapidly disint. tablet PO SCH (08:07)
[2022-11-16] MEDS: multivitamins, therapeutics tablet PO SCH (08:08)
[2022-11-16] MEDS: docusate sod 100mg capsule PO SCH ×2 (08:08→20:27)
--- NOTE | 2022-11-16 17:44 | NUR ---
Nursing Progress Note: Problem: Pt admitted on 5150 for DTO from our ER. Pt reported that he constantly has thoughts of killing people. He does not know where he can live. He is homeless, does not eat and not wearing shoes. Pt has history of Schizophrenia, bipolar, anxiety, antisocial. Interventions: Medication administration, 1:1 MH assessment, maintained a safe and supportive environment, provided clear and simple instructions, provided encouragement regarding performance of ADLs, monitored behaviors and maintained clear boundaries, maintained Q15 minute safety checks. Response: Received patient sleeping in bed at change of shift. Patient goes to breakfast and takes morning medications as directed. Patient was seen in his room talking to himself and responding to internal stimuli. Plan: Crisis interruption and stabilization in a safe and therapeutic environment, the [facility] plans to conserve him.
[2022-11-16] MEDS: NICOTINE POLACRILEX 2 MG LOZENGE BC PRN (18:04)
[2022-11-16] MEDS: LORazepam 1 MG tablet PO PRN ×2 (18:04→20:27)
[2022-11-16 19:52] VITALS: BP 118/54; PULSE 67; RESP 16; TEMP 97.8; O2SAT 99
[2022-11-16] MEDS: quetiapine 100mg tablet PO SCH (20:27)
[2022-11-16] MEDS: OLANZAPINE 5 MG TABLET PO SCH (20:27)
--- NOTE | 2022-11-17 05:09 | NUR ---
Nursing Progress Note: Problem : Pt admitted on 5150 for DTO from our ER. Pt reported that he constantly has thoughts of killing people. He does not know where he can live. He is homeless, does not eat and not wearing shoes. Pt has history of Schizophrenia; Bipolar; Anxiety; & Antisocial. Interventions : Attempted to establish rapport, maintained a safe and supportive environment, provided clear and simple instructions, monitored behaviors and need for intervention, and maintained Q 15min safety checks. Response : Patient is pleasant and cooperative with care; compliant with medication. PRN Ativan provided. Patient denies MH Sx but observed pacing in his room and responding to IS. Patient mostly self isolated to room. He was provided HS snack prior to bed; observed sleeping and does not appear to be having difficulty. Plan : Per CANDELARIO Jay, pt. continues to require medication adjustments and a safe and supportive environment.
[2022-11-17 07:00] VITALS: RESP 14; O2SAT 99
[2022-11-17] MEDS: multivitamins, therapeutics tablet PO SCH (07:38)
[2022-11-17] MEDS: docusate sod 100mg capsule PO SCH ×2 (07:38→20:57)
[2022-11-17] MEDS: OLANZapine 5mg rapidly disint. tablet PO SCH (07:39)
[2022-11-17 08:00] VITALS: BP 106/78; PULSE 69; RESP 14; TEMP 97.7; O2SAT 99
[2022-11-17] MEDS: NICOTINE POLACRILEX 2 MG LOZENGE BC PRN ×3 (08:07→21:17)
[2022-11-17] MEDS: LORazepam 1 MG tablet PO PRN ×2 (08:07→17:08)
--- NOTE | 2022-11-17 17:47 | NUR ---
Nursing Progress Note: Problem: Pt admitted on 5150 for DTO from our ER. Pt reported that he constantly has thoughts of killing people. He does not know where he can live. He is homeless, does not eat and not wearing shoes. Pt has history of Schizophrenia, bipolar, anxiety, antisocial. Interventions: Medication administration, 1:1 MH assessment, maintained a safe and supportive environment, provided clear and simple instructions, provided encouragement regarding performance of ADLs, monitored behaviors and maintained clear boundaries, maintained Q15 minute safety checks. Response: Received patient from CN @ 0830. Patient goes to breakfast and takes morning medications as directed. Pt listening to headphones and ambulating through unit. Pt telling peers, Im moving to [place] or [place] to a rehab. [facility] caseworkers in to speak to pt. Pt pacing in room in afternoon. Does not seem to be responding to internal stimuli. Pt denies SI, and states he is not having HI at this time. Denies AV/H. Denies depression/anxiety during 1:1. Plan: Crisis interruption and stabilization in a safe and therapeutic environment, [facility].
[2022-11-17 19:00] VITALS: BP 135/90; PULSE 90; RESP 18; TEMP 98; O2SAT 97
[2022-11-17 20:18] VITALS: BP 137/82; PULSE 68; RESP 18; TEMP 97.4; O2SAT 99
[2022-11-17] MEDS: quetiapine 100mg tablet PO SCH (20:57)
[2022-11-17] MEDS: OLANZAPINE 5 MG TABLET PO SCH (20:57)
--- NOTE | 2022-11-18 04:27 | NUR ---
Nursing Progress Note: Problem : Pt admitted on 5150 for DTO from our ER. Pt reported that he constantly has thoughts of killing people. He does not know where he can live. He is homeless, does not eat and not wearing shoes. Pt has history of Schizophrenia; Bipolar; Anxiety; & Antisocial. Interventions : Attempted to establish rapport, maintained a safe and supportive environment, provided clear and simple instructions, monitored behaviors and need for intervention, and maintained Q 15min safety checks. Response : Patient remains guarded but pleasant and cooperative with care; compliant with medication. PRN Nicotine lozenge provided. He denies SI, HI, A/VH; however, observed pacing in his room and responding to IS. Patient mostly isolative to his room; provided HS snack prior to bed. Patient observed sleeping and does not appear to be having difficulty. Plan : Per CANDELARIO Jay, pt. continues to require medication adjustments and a safe and supportive environment.
[2022-11-18 07:30] VITALS: BP 113/54; PULSE 85; RESP 12; TEMP 97.6; O2SAT 99
[2022-11-18] MEDS: multivitamins, therapeutics tablet PO SCH (07:53)
[2022-11-18] MEDS: OLANZapine 5mg rapidly disint. tablet PO SCH (07:54)
[2022-11-18 08:00] VITALS: BP 113/54; PULSE 85; RESP 12; TEMP 97.6; O2SAT 99
[2022-11-18] MEDS: docusate sod 100mg capsule PO SCH ×2 (08:00→20:51)
[2022-11-18] MEDS: LORazepam 1 MG tablet PO PRN ×2 (08:50→16:28)
[2022-11-18] MEDS: NICOTINE POLACRILEX 2 MG LOZENGE BC PRN ×2 (08:50→16:28)
[2022-11-18] MEDS: magnesium hydroxide 30ml (MOM) UD suspension PO PRN (17:24)
--- NOTE | 2022-11-18 17:31 | NUR ---
Nursing Progress Note: Problem: Pt admitted on 515 for DTO from our ER. Pt reported that he constantly has thoughts of killing people. He does not know where he can live. He is homeless, does not eat and not wearing shoes. Pt has history of Schizophrenia, bipolar, anxiety, antisocial. Interventions: Medication administration, 1:1 MH assessment, maintained a safe and supportive environment, provided clear and simple instructions, provided encouragement regarding performance of ADLs, monitored behaviors and maintained clear boundaries, maintained Q15 minute safety checks. Response: Received patient asleep in bedroom at beginning of shift. Patient goes to breakfast and takes morning medications as directed. Pt listening to headphones and ambulating through unit. Does not seem to be responding to internal stimuli. During 1:1 patient denies SI/HI, AV/H, depression, and anxiety. HR RRR, LSCTA, BS + 4, PERRLA, cap refill < 3 sec, - homans. Appeared to be responding to internal stimuli at times. Reports last BM early 11/18/2022. PRN Nicotine lozenge 2mg and Ativan 1mg (2 tabs) given @ 0850/1630. Pt self-isolated in room with headphones most of shift. Ate all meals in community room. Plan: Crisis interruption and stabilization in a safe and therapeutic environment, [facility].
[2022-11-18 19:57] VITALS: BP 129/61; PULSE 84; RESP 16; TEMP 97.1; O2SAT 98
[2022-11-18] MEDS: quetiapine 100mg tablet PO SCH (20:51)
[2022-11-18] MEDS: OLANZAPINE 5 MG TABLET PO SCH (20:52)
--- NOTE | 2022-11-19 05:39 | NUR ---
Nursing Progress Note: Problem : Pt admitted on 5150 for DTO from our ER. Pt reported that he constantly has thoughts of killing people. He does not know where he can live. He is homeless, does not eat and not wearing shoes. Pt has history of Schizophrenia; Bipolar; Anxiety; & Antisocial. Interventions : Attempted to establish rapport, maintained a safe and supportive environment, provided clear and simple instructions, monitored behaviors and need for intervention, and maintained Q 15min safety checks. Response : Patient is pleasant and remains guarded; compliant with medication. PRN Ativan provided. He denies SI, HI, A/VH; no apparent delusions expressed and did not appear to be responding to IS this shift. Patient participated in HS snack prior to bed; observed sleeping and does not appear to be having difficulty. Plan : Per CANDELARIO Jay, pt. continues to require medication adjustments and a safe and supportive environment.
[2022-11-19 07:00] VITALS: RESP 16; O2SAT 98
[2022-11-19] MEDS: OLANZapine 5mg rapidly disint. tablet PO SCH (07:17)
[2022-11-19] MEDS: docusate sod 100mg capsule PO SCH ×2 (07:17→20:20)
[2022-11-19] MEDS: multivitamins, therapeutics tablet PO SCH (07:17)
[2022-11-19 07:39] VITALS: BP 101/46; PULSE 62; RESP 16; TEMP 97.7; O2SAT 98
[2022-11-19] MEDS: NICOTINE POLACRILEX 2 MG LOZENGE BC PRN ×2 (10:34→17:47)
[2022-11-19] MEDS: LORazepam 1 MG tablet PO PRN ×2 (10:36→17:47)
[2022-11-19] MEDS: magnesium hydroxide 30ml (MOM) UD suspension PO PRN (10:39)
--- NOTE | 2022-11-19 15:06 | NUR ---
Nursing Progress Note Problem: Pt admitted on 5150 for DTO from our ER. Pt reported that he constantly has thoughts of killing people. He does not know where he can live. He is homeless, does not eat and not wearing shoes. Pt has history of Schizophrenia, bipolar, anxiety, antisocial. Interventions: 1:1 assessment, therapeutic communication, active listening, medication administration/education/monitoring, provided limit setting, distraction, redirection, reality orientation, and Q15 minute safety checks. Response: Received pt. sleeping in bed w/o distress at start of shift. Pt remained sleeping until brkfst. Pt. awoke for breakfast and was cooperative with vitals. He took AM medications w/o issue. Pt spoke with Quincy PALOMINO in [place] and was clear and appropriate. He asked for anxiety PRN and nicotine David. In late morning with good effect. Pt c/o constipation and was given MOM with no results as of the writing of this note. . He denies SI/HI and A/VHs. Pt continues to be cooperative but guarded and isolates with headphones and in his room. Seen walking hallways throughout day. Plan: Crisis interruption and stabilization in a safe and therapeutic environment; the [facility] plans to conserve him.
[2022-11-19 20:00] VITALS: BP 125/71; PULSE 93; RESP 14; TEMP 99.2; O2SAT 98
[2022-11-19] MEDS: OLANZAPINE 5 MG TABLET PO SCH (20:20)
[2022-11-19] MEDS: quetiapine 100mg tablet PO SCH (20:20)
--- NOTE | 2022-11-20 05:18 | NUR ---
Nursing Progress Note: Problem : Pt admitted on 5150 for DTO from our ER. Pt reported that he constantly has thoughts of killing people. He does not know where he can live. He is homeless, does not eat and not wearing shoes. Pt has history of Schizophrenia; Bipolar; Anxiety; & Antisocial. Interventions : Attempted to establish rapport, maintained a safe and supportive environment, provided clear and simple instructions, monitored behaviors and need for intervention, and maintained Q 15min safety checks. Response : Patient is pleasant and remains guarded; compliant with medication. He denies SI, HI, A/VH; no apparent delusions expressed and did not appear to be responding to IS this shift. Patient participated in HS snack prior to bed; observed sleeping and does not appear to be having difficulty. Plan : Per CANDELARIO Jay, pt. continues to require medication adjustments and a safe and supportive environment.
[2022-11-20 07:55] VITALS: BP 123/52; PULSE 67; RESP 14; TEMP 97.9; O2SAT 98
[2022-11-20] MEDS: docusate sod 100mg capsule PO SCH ×2 (08:03→21:07)
[2022-11-20] MEDS: multivitamins, therapeutics tablet PO SCH (08:03)
[2022-11-20] MEDS: OLANZapine 5mg rapidly disint. tablet PO SCH (08:03)
[2022-11-20] MEDS: LORazepam 1 MG tablet PO PRN ×2 (09:37→21:52)
[2022-11-20] MEDS: magnesium hydroxide 30ml (MOM) UD suspension PO PRN (09:37)
[2022-11-20] MEDS: NICOTINE POLACRILEX 2 MG LOZENGE BC PRN ×2 (09:37→21:52)
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
[2022-11-20 19:00] VITALS: RESP 18; O2SAT 99
[2022-11-20 20:00] VITALS: BP 127/55; PULSE 94; RESP 18; TEMP 98.4; O2SAT 99
[2022-11-20] MEDS: OLANZAPINE 5 MG TABLET PO SCH (21:07)
[2022-11-20] MEDS: quetiapine 100mg tablet PO SCH (21:07)
--- NOTE | 2022-11-21 04:10 | NUR ---
NURSING PROGRESS NOTE Problem: Patient admitted on 5150 for DTO from our ER. Pt reported that he constantly has thoughts of killing people. He does not know where he can live. He is homeless, does not eat and not wearing shoes. Pt has history of Schizophrenia, bipolar, anxiety, antisocial. Interventions: Maintained a safe and supportive environment, administered medication per orders with no adverse side effects, provided clear and simple instructions, provided direction and encouragement regarding performance of ADLs, monitored behaviors and maintained clear boundaries, provided positive reinforcement, maintained Q15 min safety rounds. Response: Pt in the lion at start of shift. Pt had a snack and went back to his room. 1:1 assessment, pt denies SI/HI/AH/VH. HS meds administered, PRN Ativan and nicotine lozenges administered. Pt comes in and out of his room and socializes with staff and cohort. Pt asked to use the phone a few times. Pt seen doing pull ups on his door. Pt seen talking to self at times. Pt was pleasant and had no outbursts. Pt slept through the night. Plan: Patients medications continue to be monitored. The patient is being conserved and requires a safe and therapeutic environment until he is placed.
[2022-11-21 07:00] VITALS: RESP 16; O2SAT 100
[2022-11-21] MEDS: docusate sod 100mg capsule PO SCH ×2 (08:32→20:38)
[2022-11-21] MEDS: multivitamins, therapeutics tablet PO SCH (08:32)
[2022-11-21] MEDS: OLANZapine 5mg rapidly disint. tablet PO SCH (08:34)
[2022-11-21 09:03] VITALS: BP 121/58; PULSE 82; RESP 16; TEMP 97.9; O2SAT 100
[2022-11-21] MEDS: LORazepam 1 MG tablet PO PRN ×2 (09:42→16:30)
[2022-11-21] MEDS: NICOTINE POLACRILEX 2 MG LOZENGE BC PRN ×2 (09:42→16:30)
--- NOTE | 2022-11-21 12:52 | NUR ---
PLACEMENT UPDATE Chan's packet is at [facility], [facility], [facility], [facility], and [facility]. MARIA LUISA Villeda
--- NOTE | 2022-11-21 13:35 | NUR ---
Sent updated notes to [facility] office for placement purposes (11/14-11/20). MARIA LUISA Villeda
--- NOTE | 2022-11-21 17:27 | NUR ---
NURSING PROGRESS NOTE Problem: Patient admitted on 5150 for DTO from our ER. Pt reported that he constantly has thoughts of killing people. He does not know where he can live. He is homeless, does not eat and not wearing shoes. Pt has history of Schizophrenia, bipolar, anxiety, antisocial. Interventions: Maintained a safe and supportive environment, administered medication per orders with no adverse side effects, provided clear and simple instructions, provided direction and encouragement regarding performance of ADLs, monitored behaviors and maintained clear boundaries, provided positive reinforcement, maintained Q15 min safety rounds. Response: Received patient sleeping at shift change. Awoke for breakfast in the community room. Took morning medications and was cooperative. Denies SI, HI. Pt. requested PRN nicotine lozenge and Ativan. At this time pt asked if my probation officers phone number is in my chart? States LBM yesterday (11/20/22). Walking around in room with headphones on. Attended afternoon snack and went right back to room. Pt. sleeping. Did not attend group. Ate lunch with peers. PRN Ativan and nicotine lozenge 1635. Seen in lion speaking about being handcuffed with hands behind back, staff intervened at this time. Plan: Patients medications continue to be monitored. The patient is being conserved and requires a safe and therapeutic environment until he is placed.
--- NOTE | 2022-11-21 19:10 | NUR ---
received report. intorduced myself to patient in his room. He got up looking for more ice cream or candy. No ice cream available, he got a candy from charge rn. seems pleasant and cooperative at this time.
[2022-11-21 20:00] VITALS: BP 111/58; PULSE 75; RESP 18; TEMP 98.2; O2SAT 98
[2022-11-21] MEDS: OLANZAPINE 5 MG TABLET PO SCH (20:37)
[2022-11-21] MEDS: quetiapine 100mg tablet PO SCH (20:38)
--- NOTE | 2022-11-22 02:02 | NUR ---
NURSING PROGRESS NOTE Problem: Patient admitted on 5150 for DTO from our ER. Pt reported that he constantly has thoughts of killing people. He does not know where he can live. He is homeless, does not eat and not wearing shoes. Pt has history of Schizophrenia, bipolar, anxiety, antisocial. Interventions: Maintained a safe and supportive environment, administered medication per orders with no adverse side effects, provided clear and simple instructions, provided direction and encouragement regarding performance of ADLs, monitored behaviors and maintained clear boundaries, provided positive reinforcement, maintained Q15 min safety rounds. Response: Pt in his room at start of shift. Pt had a snack and went back to his room. 1:1 assessment, pt denies SI/HI/AH/VH. HS meds administered. Pt comes in and out of his room and socializes with staff and other patients. Pt was pleasant and had no outbursts. Pt slept through the night. Plan: Patients medications continue to be monitored. The patient is being conserved and requires a safe and therapeutic environment until he is placed.
[2022-11-22 07:23] VITALS: BP 106/49; PULSE 60; RESP 16; TEMP 97.9; O2SAT 98
[2022-11-22] MEDS: OLANZapine 5mg rapidly disint. tablet PO SCH (08:35)
[2022-11-22] MEDS: multivitamins, therapeutics tablet PO SCH (08:35)
[2022-11-22] MEDS: docusate sod 100mg capsule PO SCH ×2 (08:35→20:48)
--- NOTE | 2022-11-22 10:03 | NUR ---
Reassessment: Pt continues on vegetarian diet and eating well documented with 100% PO intake of meals while receiving double protein TID meeting estimated nutrient needs. [facility] 11/20 receiving routine Colace and MoM PRN. No nutrition intervention implemented at this time, will continue to monitor. Recommendations: 1. Continue vegetarian diet; double protein TID 2. Bowel care PRN 3. Weekly scaled wts Addendum: 11/22/22 at [address]ñoz RD Amended: Links added.
[2022-11-22] MEDS: LORazepam 1 MG tablet PO PRN ×2 (13:00→19:07)
[2022-11-22] MEDS: NICOTINE POLACRILEX 2 MG LOZENGE BC PRN ×2 (13:00→19:07)
--- NOTE | 2022-11-22 17:33 | NUR ---
NURSING PROGRESS NOTE Problem: Patient admitted on 5150 for DTO from our ER. Pt reported that he constantly has thoughts of killing people. He does not know where he can live. He is homeless, does not eat and not wearing shoes. Pt has history of Schizophrenia, bipolar, anxiety, antisocial. Interventions: Maintained a safe and supportive environment, administered medication per orders with no adverse side effects, provided clear and simple instructions, provided direction and encouragement, monitored behaviors and maintained clear boundaries, provided positive reinforcement, maintained Q15 min safety rounds. Response: Received patient sleeping at shift change. Pt ate his breakfast then returned to his room to sleep. Pt wakes and makes his bed, is up for most of the shift. Pt is more visible on unit. Pt often talks loudly to himself when in his room, but when out in common areas pt presents lucid and calm. Noted conversation You can pay a hitman to go away. You can give me two well-trained dogs-good defense module. Gangland would never hurt the one who took down the green wall. Pt napped in the afternoon participating in pizza constitution party. Pt was polite. He requested PRN Ativan and Nicotine lozenge. Pt continues to be guarded with conversation. Plan: Patients medications continue to be monitored. The patient is being conserved and requires a safe and therapeutic environment until he is placed.
[2022-11-22 19:00] VITALS: RESP 18; O2SAT 98
[2022-11-22 19:48] VITALS: BP 124/61; PULSE 87; RESP 18; TEMP 98.2; O2SAT 98
[2022-11-22] MEDS: OLANZAPINE 5 MG TABLET PO SCH (20:49)
[2022-11-22] MEDS: quetiapine 100mg tablet PO SCH (20:49)
--- NOTE | 2022-11-23 00:51 | NUR ---
NURSING PROGRESS NOTE Problem: Patient admitted on 5150 for DTO from our ER. Pt reported that he constantly has thoughts of killing people. He does not know where he can live. He is homeless, does not eat and not wearing shoes. Pt has history of Schizophrenia, bipolar, anxiety, antisocial. Interventions: Maintained a safe and supportive environment, administered medication per orders with no adverse side effects, provided clear and simple instructions, provided direction and encouragement, monitored behaviors and maintained clear boundaries, provided positive reinforcement, maintained Q15 min safety rounds. Response: Pt up in room wearing headphones and pacing at start of shift. Requested Ativan and a Nicotine lozenge. Denies MH symptoms. He said he had an good day, ate 6 pieces of pizza. Later up in halls and in group room interacting with other pts. Appears calm, conversation linear most of the time. Calm cooperative with care took all HS meds sleeping at this time. Plan: Patients medications continue to be monitored. The patient is being conserved and requires a safe and therapeutic environment until he is placed.
[2022-11-23 07:52] VITALS: BP 99/51; PULSE 63; RESP 15; TEMP 98.2; O2SAT 98
[2022-11-23] MEDS: docusate sod 100mg capsule PO SCH ×2 (08:22→20:00)
[2022-11-23] MEDS: OLANZapine 5mg rapidly disint. tablet PO SCH (08:22)
[2022-11-23] MEDS: multivitamins, therapeutics tablet PO SCH (08:22)
--- NOTE | 2022-11-23 15:16 | NUR ---
NURSING PROGRESS NOTE Problem: Patient admitted on 5150 for DTO from our ER. Pt reported that he constantly has thoughts of killing people. He does not know where he can live. He is homeless, does not eat and not wearing shoes. Pt has history of Schizophrenia, bipolar, anxiety, antisocial. Interventions: Maintained a safe and supportive environment, administered medication per orders with no adverse side effects, provided clear and simple instructions, provided direction and encouragement, monitored behaviors and maintained clear boundaries, provided positive reinforcement, maintained Q15 min safety rounds. Response: Received patient sleeping at shift change. Pt ate his breakfast then returned to his room to sleep. Pt wakes and makes his bed, is up for most of the shift. Pt was compliant with care and medication. Pt continues to be visible on unit. Pts mother came to visit, pt was tearful coming out of his room. First interaction was short, pt got up and went to his room. Pts mom said he was upset because she wouldnt get him a motel room and that he didnt want to be conserved. Pts mother told greeting card writer we have worked too hard to get to this place. Pt was back and forth two more times. After mother left, pt isolated in his room for a while then came out pacing lion listening to headphones. Patient told greeting card writer I am fine. Pt was social with other peers. Noted talking to himself pacing in his room, no behaviors. As of this writing pt has not requested PRN Ativan as he has the last couple of shifts with this greeting card writer. Will continue to monitor. Plan: Patients medications continue to be monitored. The patient is being conserved and requires a safe and therapeutic environment until he is placed.
[2022-11-23 19:00] VITALS: RESP 14; O2SAT 99
[2022-11-23 20:00] VITALS: BP 124/61; PULSE 87; RESP 18; TEMP 98.2; O2SAT 98
[2022-11-23] MEDS: OLANZAPINE 5 MG TABLET PO SCH (20:02)
[2022-11-23] MEDS: quetiapine 100mg tablet PO SCH (20:02)
[2022-11-23] MEDS: LORazepam 1 MG tablet PO PRN (20:03)
--- NOTE | 2022-11-24 02:19 | NUR ---
NURSING PROGRESS NOTE Problem: Patient admitted on 5150 for DTO from our ER. Pt reported that he constantly has thoughts of killing people. He does not know where he can live. He is homeless, does not eat and not wearing shoes. Pt has history of Schizophrenia, bipolar, anxiety, antisocial. Interventions: Maintained a safe and supportive environment, administered medication per orders with no adverse side effects, provided clear and simple instructions, provided direction and encouragement, monitored behaviors and maintained clear boundaries, provided positive reinforcement, maintained Q15 min safety rounds. Response: Pt pacing in halls at start of shift. Became more agitated. Starting responding to internal stimuli talking about Santosh and Miguel Ledesma. Talking became louder and more argumentative. Pt given HS meds and Prn Ativan. Continued pacing in halls became calmer and went to bed. Sleeping at this time. Plan: Patients medications continue to be monitored. The patient is being conserved and requires a safe and therapeutic environment until he is placed.
[2022-11-24 07:00] VITALS: RESP 16; O2SAT 99
[2022-11-24] MEDS: docusate sod 100mg capsule PO SCH ×2 (07:11→20:00)
[2022-11-24] MEDS: multivitamins, therapeutics tablet PO SCH (07:11)
[2022-11-24] MEDS: OLANZapine 5mg rapidly disint. tablet PO SCH (07:12)
[2022-11-24 07:21] VITALS: BP 124/66; PULSE 78; RESP 12; TEMP 97.4; O2SAT 99
[2022-11-24] MEDS: NICOTINE POLACRILEX 2 MG LOZENGE BC PRN ×2 (09:27→19:09)
[2022-11-24] MEDS: LORazepam 1 MG tablet PO PRN ×2 (09:28→19:09)
--- NOTE | 2022-11-24 16:47 | NUR ---
Nursing Progress Note: Chan Problem: Pt admitted on 5150 for DTO from our ER. Pt reported that he constantly has thoughts of killing people. He does not know where he can live. He is homeless, does not eat and not wearing shoes. Pt has history of Schizophrenia, bipolar, anxiety, antisocial. Interventions: Medication administration, 1:1 MH assessment, maintained a safe and supportive environment, provided clear and simple instructions, provided encouragement regarding performance of ADLs, monitored behaviors and maintained clear boundaries, maintained Q15 minute safety checks. Response: Pt. received asleep and awoke for his medication, which he took without hesitation. Pt. denies SI,HI, AH, VH. Pt. ate all his meals in the dining room with cohorts and interacts appropriately. Pt. has good eye contact and presents more subdued compared to previous encounters. Pt. approached display card writer later requesting Ativan and a nicotine lozenge please he reported feeling anxious; meds given with good results. Pt. walked around the unit listening to headphones and keeps to himself. Pt. occasionally socializes with other male cohorts briefly, but is hyperverbal during that exchange. He he presents with good hygiene, well groomed, and wears street clothes. Plan: Crisis interruption and stabilization in a safe and therapeutic environment, the county plans to conserve him.
[2022-11-24 19:00] VITALS: RESP 18; O2SAT 98
[2022-11-24 19:39] VITALS: BP 137/72; PULSE 71; RESP 18; TEMP 97.5; O2SAT 98
[2022-11-24] MEDS: OLANZAPINE 5 MG TABLET PO SCH (21:20)
[2022-11-24] MEDS: quetiapine 100mg tablet PO SCH (21:20)
--- NOTE | 2022-11-25 01:08 | NUR ---
NURSING PROGRESS NOTE Problem: Patient admitted on 5150 for DTO from our ER. Pt reported that he constantly has thoughts of killing people. He does not know where he can live. He is homeless, does not eat and not wearing shoes. Pt has history of Schizophrenia, bipolar, anxiety, antisocial. Interventions: Maintained a safe and supportive environment, administered medication per orders with no adverse side effects, provided clear and simple instructions, provided direction and encouragement, monitored behaviors and maintained clear boundaries, provided positive reinforcement, maintained Q15 min safety rounds. Response: Pt pacing in halls at start of shift. He is obviosly responding to internal stimuli but denies A/V/H. When spoken to pt makes good eye contact and his conversation becomes linear and more appropriate. Pt requested and was given PRN Ativan and nicotine lozenge. He came to group room for snack. At times interacts with other pts. Pt given HS meds went to bed. Sleeping at this time. Plan: Patients medications continue to be monitored. The patient is being conserved and requires a safe and therapeutic environment until he is placed.
[2022-11-25 07:00] VITALS: RESP 16; O2SAT 99
[2022-11-25] MEDS: docusate sod 100mg capsule PO SCH ×2 (07:41→19:21)
[2022-11-25] MEDS: multivitamins, therapeutics tablet PO SCH (07:41)
[2022-11-25] MEDS: OLANZapine 5mg rapidly disint. tablet PO SCH (07:42)
[2022-11-25 08:00] VITALS: BP 109/50; PULSE 64; RESP 14; TEMP 98.4; O2SAT 99
[2022-11-25] MEDS: NICOTINE POLACRILEX 2 MG LOZENGE BC PRN ×3 (09:00→18:37)
[2022-11-25] MEDS: LORazepam 1 MG tablet PO PRN ×3 (09:00→20:27)
--- NOTE | 2022-11-25 15:50 | NUR ---
Therapeutic group Description: Daily therapeutic groups support [facility] crisis-recovery environment. Topic: reading empowering poems, creating word collages/poems about empowerment. Group discussion veered into peer discussion of the dangers of using meth when you have a mental illness. One new peer was disruptive, and this telegraphic typewriter operator chief will conduct a structured, directive activities-based group tomorrow. Intervention: Therapeutic communication, peer support, validation by peers, coping skills and psychosocial education. Secondarily, intellectual and physical activity, peer, and staff companionship, alleviating and discouraging isolation. Response: Client engaged in entire group, and often would not stop talking. Client stated he endorses drug use, idolizes Stewart Oquendo's lifestyle and drug use despite the public/tragic outcome. Client would not be dissuaded from this stance: "Live fast, young". Client enjoys sharing details on the drugs he has used, how, how much, when/where. Others were triggered by this conversation. Treatment Until stable, client requires time in a safe and therapeutic environment employing multidisciplinary treatments, including therapeutic groups.
[2022-11-25] MEDS: magnesium hydroxide 30ml (MOM) UD suspension PO PRN (16:07)
--- NOTE | 2022-11-25 17:09 | NUR ---
Nursing Progress Note: Chan Problem: Pt admitted on 5150 for DTO from our ER. Pt reported that he constantly has thoughts of killing people. He does not know where he can live. He is homeless, does not eat and not wearing shoes. Pt has history of Schizophrenia, bipolar, anxiety, antisocial. Interventions: Medication administration, 1:1 MH assessment, maintained a safe and supportive environment, provided clear and simple instructions, provided encouragement regarding performance of ADLs, monitored behaviors and maintained clear boundaries, maintained Q15 minute safety checks. Response: Pt. received asleep and awoke for breakfast. He takes his medications without hesitation. He denies SI, HI, AH, VH. Pt. approached residential mortgage underwriter early in shift requesting Ativan and nicotine lozenge. Pt. reports Im just feeling anxious; PRNs provided. Pt. had an early nap and walked around the unit and listening to headphones. He was observed talking to male cohorts but only briefly throughout shift. Pt. interacts appropriately on the unit and is respectful toward staff. He was observed perseverating about convict rights and can be hyperverbal while discussing such matters, but only in brief intervals. He is well groomed, good hygiene, and wears street clothes. Plan: Crisis interruption and stabilization in a safe and therapeutic environment, the [facility] plans to conserve him.
[2022-11-25 19:00] VITALS: RESP 26; O2SAT 97
[2022-11-25] MEDS: quetiapine 100mg tablet PO SCH (19:20)
[2022-11-25] MEDS: OLANZAPINE 5 MG TABLET PO SCH (19:21)
[2022-11-25 20:00] VITALS: BP 139/78; PULSE 113; RESP 26; TEMP 97.1; O2SAT 97
--- NOTE | 2022-11-26 05:19 | NUR ---
NURSING PROGRESS NOTE Problem: Patient admitted on 5150 for DTO from our ER. Pt reported that he constantly has thoughts of killing people. He does not know where he can live. He is homeless, does not eat and not wearing shoes. Pt has history of Schizophrenia, bipolar, anxiety, antisocial. Interventions: Maintained a safe and supportive environment, administered medication per orders with no adverse side effects, provided clear and simple instructions, provided direction and encouragement, monitored behaviors and maintained clear boundaries, provided positive reinforcement, maintained Q15 min safety rounds. Response: Patient is awake and pacing the lion at shift change. Right away he requests PRN Ativan and nicotine lozenge. Took night medications with no problems. Denies SI and HI and states hes fine. Patient pacing the halls rambling between stories about the feds and care home. Patient asked for shower then later changed his mind. He also asked about iron & zinc because he is a vegetarian. Patient slept through the night. Plan: Patients medications continue to be monitored. The patient is being conserved and requires a safe and therapeutic environment until he is placed.
[2022-11-26 07:00] VITALS: RESP 16; O2SAT 99
[2022-11-26 08:00] VITALS: BP 110/57; PULSE 65; RESP 12; TEMP 97.7; O2SAT 99
[2022-11-26] MEDS: multivitamins, therapeutics tablet PO SCH (08:18)
[2022-11-26] MEDS: OLANZapine 5mg rapidly disint. tablet PO SCH (08:18)
[2022-11-26] MEDS: docusate sod 100mg capsule PO SCH ×2 (08:18→20:03)
[2022-11-26] MEDS: NICOTINE POLACRILEX 2 MG LOZENGE BC PRN ×3 (08:23→18:50)
[2022-11-26] MEDS: LORazepam 1 MG tablet PO PRN ×3 (08:23→20:02)
--- NOTE | 2022-11-26 17:39 | NUR ---
Nursing Progress Note: Chan Problem: Pt admitted on 5150 for DTO from our ER. Pt reported that he constantly has thoughts of killing people. He does not know where he can live. He is homeless, does not eat and not wearing shoes. Pt has history of Schizophrenia, bipolar, anxiety, antisocial. Interventions: Medication administration, 1:1 MH assessment, maintained a safe and supportive environment, provided clear and simple instructions, provided encouragement regarding performance of ADLs, monitored behaviors and maintained clear boundaries, maintained Q15 minute safety checks. Response: Pt. received asleep and awoke take his medications, which he took without hesitation. He denies SI, HI, AH, VH. Pt. approached short story writer twice this shift c/o anxiety; PRN Ativan and nicotine lozenge provided. Pt. took an early nap then walked around the unit listening to headphones. He interacted with to male cohorts socializing about [facility] time and demonstrating excises. Pt. continues to interact appropriately on the unit and is respectful toward staff. He was observed perseverating about a call from my defense attorney He is well groomed, good hygiene, and wears street clothes. Plan: Crisis interruption and stabilization in a safe and therapeutic environment, the [facility] plans to conserve him.
[2022-11-26 19:00] VITALS: RESP 18; O2SAT 98
[2022-11-26 19:47] VITALS: BP 148/67; PULSE 102; RESP 18; TEMP 97.3; O2SAT 98
[2022-11-26] MEDS: OLANZAPINE 5 MG TABLET PO SCH (20:03)
[2022-11-26] MEDS: quetiapine 100mg tablet PO SCH (20:03)
--- NOTE | 2022-11-27 00:15 | NUR ---
NURSING PROGRESS NOTE Problem: Patient admitted on 5150 for DTO from our ER. Pt reported that he constantly has thoughts of killing people. He does not know where he can live. He is homeless, does not eat and not wearing shoes. Pt has history of Schizophrenia, bipolar, anxiety, antisocial. Interventions: Maintained a safe and supportive environment, administered medication per orders with no adverse side effects, provided clear and simple instructions, provided direction and encouragement, monitored behaviors and maintained clear boundaries, provided positive reinforcement, maintained Q15 min safety rounds. Response: Patient awake during change of shift in room. Patient denies SI, HI, AH/VH during 1:1 assessment. He continues having grandiose delusions. Patient talked about working out in his room and eating his vegetarian diet. Socializes with peers in the lion and community room during snack. Took all medications without any problems. Requested PRN nicotine lozenge and ativan. Patient is asleep in bed. Plan: Patients medications continue to be monitored. The patient is being conserved and requires a safe and therapeutic environment until he is placed.
[2022-11-27 07:00] VITALS: RESP 15; O2SAT 98
--- NOTE | 2022-11-27 07:39 | NUR ---
PLACEMENT UPDATE Chan's packet is currently being reviewed at [facility], [facility], [facility], [facility], and [facility]. MARIA LUISA Villeda
[2022-11-27] MEDS: OLANZapine 5mg rapidly disint. tablet PO SCH (07:59)
[2022-11-27] MEDS: docusate sod 100mg capsule PO SCH ×2 (07:59→20:48)
[2022-11-27] MEDS: multivitamins, therapeutics tablet PO SCH (07:59)
[2022-11-27 08:00] VITALS: BP 106/51; PULSE 80; RESP 15; TEMP 98.4; O2SAT 98
[2022-11-27] MEDS: LORazepam 1 MG tablet PO PRN ×3 (09:13→20:49)
[2022-11-27] MEDS: NICOTINE POLACRILEX 2 MG LOZENGE BC PRN ×3 (09:13→20:50)
--- NOTE | 2022-11-27 15:27 | NUR ---
Nursing Progress Note: Problem: Pt admitted on 5150 for DTO from our ER. Pt reported that he constantly has thoughts of killing people. He does not know where he can live. He is homeless, does not eat and not wearing shoes. Pt has history of Schizophrenia, bipolar,anxiety,antisocial. Interventions: 1:1 assessment, therapeutic communication, active listening, ensured contract for safety, medication administration/education/monitoring, behavior monitoring and intervention as needed; provided distraction, redirection, positive reinforcement, and Q15 minute safety checks. Response: Pt was up for breakfast and cooperative with routine medications. Pt requested PRN Ativan 2 mg and a nicotine lozenge for increased anxiety at 0913 with good effect. Pt exercises in his room. Pt comes out of his room for meals. Pt listens to the radio headphones. Pt is mostly isolative to self. Pt denies SI/HI/AH/VH, no overtly delusional statements made today, no unsafe behaviors noted. Pt just now approached this nurse to ask for another Ativan and a nicotine lozenge. Plan: Pt is conserved and awaiting placement.
[2022-11-27 19:00] VITALS: RESP 16; RESP 18; O2SAT 98; O2SAT 99
[2022-11-27 19:44] VITALS: BP 125/52; PULSE 99; RESP 16; TEMP 97.8; O2SAT 99
[2022-11-27] MEDS: quetiapine 100mg tablet PO SCH (20:49)
[2022-11-27] MEDS: OLANZAPINE 5 MG TABLET PO SCH (20:49)
--- NOTE | 2022-11-28 02:59 | NUR ---
NURSING PROGRESS NOTE Problem: Patient admitted on 5150 for DTO from our ER. Pt reported that he constantly has thoughts of killing people. He does not know where he can live. He is homeless, does not eat and not wearing shoes. Pt has history of Schizophrenia, bipolar, anxiety, antisocial. Interventions: Maintained a safe and supportive environment, administered medication per orders with no adverse side effects, provided clear and simple instructions, provided direction and encouragement, monitored behaviors and maintained clear boundaries, provided positive reinforcement, maintained Q15 min safety rounds. Response: Patient awake during change of shift in room. Patient denies to this TOE PUNCHER SI/HI, AH/VH. Denies depression, endorses anxiety during 1:1 assessment. No apparent delusions this shift, not responding to internal stimuli. Socializes with peers in the lion and community room during snack. Took all medications without any problems. Requested PRN nicotine lozenge and Ativan. Patient is asleep in bed. Plan: Patients medications continue to be monitored. The patient is being conserved and requires a safe and therapeutic environment until he is placed.
[2022-11-28 07:00] VITALS: RESP 14; O2SAT 98
[2022-11-28 07:37] VITALS: BP 104/48; PULSE 65; RESP 14; TEMP 97.7; O2SAT 98
[2022-11-28] MEDS: docusate sod 100mg capsule PO SCH ×2 (07:38→21:01)
[2022-11-28] MEDS: multivitamins, therapeutics tablet PO SCH (07:38)
[2022-11-28] MEDS: OLANZapine 5mg rapidly disint. tablet PO SCH (07:39)
[2022-11-28] MEDS: busPIRone 5mg tablet PO SCH ×3 (07:39→21:01)
[2022-11-28] MEDS: NICOTINE POLACRILEX 2 MG LOZENGE BC PRN ×2 (14:45→19:06)
--- NOTE | 2022-11-28 15:06 | NUR ---
Nursing Progress Note: Problem: Pt admitted on 5150 for DTO from our ER. Pt reported that he constantly has thoughts of killing people. He does not know where he can live. He is homeless, does not eat and not wearing shoes. Pt has history of Schizophrenia, bipolar,anxiety,antisocial. Interventions: 1:1 assessment, therapeutic communication, active listening, ensured contract for safety, medication administration/education/monitoring, behavior monitoring and intervention as needed; provided reality orientation, distraction, redirection, positive reinforcement, and Q15 minute safety checks. Response: Pt was up for breakfast and cooperative with medications including new medication Buspar. Pt reported that the Buspar is helping with his anxiety. Pt did not request any PRN Ativan today. pt was up pacing the unit, listening to radio headphones, and interacting appropriately with peers. Pt was observed dancing with an older female pt in the lion (no touching involved.) Pt makes phone calls. Pt stated that he needed his Medi-dilip ID so he can call [facility]. He later approached this RN to ask that if he wanted to go to a program and he's under a conservator, could he still go to the program with funding? Pt told that he would not be able to go without permission from his conservator. Pt denied depression, SI/HI/AH/VH. Pt pleasant, polite, no unsafe behaviors noted. Plan: Pt is conserved and awaiting placement.
[2022-11-28] MEDS: LORazepam 1 MG tablet PO PRN ×2 (16:10→21:03)
[2022-11-28 19:00] VITALS: BP 129/42; PULSE 66; RESP 18; TEMP 97.8; O2SAT 98
[2022-11-28] MEDS: OLANZAPINE 5 MG TABLET PO SCH (21:02)
[2022-11-28] MEDS: quetiapine 100mg tablet PO SCH (21:02)
--- NOTE | 2022-11-29 03:12 | NUR ---
Nursing Progress Note: Problem: Patient admitted on 5150 for DTO from our ER. Pt reported that he constantly has thoughts of killing people. He does not know where he can live. He is homeless, does not eat and not wearing shoes. Pt has history of Schizophrenia, bipolar, anxiety, antisocial. Interventions: Maintained a safe and supportive environment, administered medication per orders with no adverse side effects, provided clear and simple instructions, provided direction and encouragement, monitored behaviors and maintained clear boundaries, provided positive reinforcement, maintained Q15 min safety rounds. Response: Patient awake during change of shift in room. Patient denies to this RN MOBILE SI/HI, AH/VH. Denies depression, endorses anxiety during 1:1 assessment. No apparent delusions this shift, not responding to internal stimuli. Socializes with peers in the lion and community room during snack. Took all medications without any problems. Requested PRN nicotine lozenge and Ativan. Patient is asleep in bed. Plan: Patients medications continue to be monitored. The patient is being conserved and requires a safe and therapeutic environment until he is placed. Per SS notes, Chan's packet is currently being reviewed at [place], [place] [facility], [facility], [place] [facility], and [facility].
[2022-11-29 07:00] VITALS: RESP 16; O2SAT 96
[2022-11-29 07:57] VITALS: BP 99/40; PULSE 60; RESP 16; TEMP 98; O2SAT 96
[2022-11-29] MEDS: multivitamins, therapeutics tablet PO SCH (08:15)
[2022-11-29] MEDS: busPIRone 5mg tablet PO SCH ×3 (08:15→20:23)
[2022-11-29] MEDS: OLANZapine 5mg rapidly disint. tablet PO SCH (08:15)
[2022-11-29] MEDS: docusate sod 100mg capsule PO SCH ×2 (08:16→20:23)
[2022-11-29] MEDS: NICOTINE POLACRILEX 2 MG LOZENGE BC PRN ×3 (08:17→20:24)
[2022-11-29] MEDS: LORazepam 1 MG tablet PO PRN ×3 (08:17→20:24)
--- NOTE | 2022-11-29 17:14 | NUR ---
Nursing Progress Note: Chan Problem: Pt admitted on 5150 for DTO from our ER. Pt reported that he constantly has thoughts of killing people. He does not know where he can live. He is homeless, does not eat and not wearing shoes. Pt has history of Schizophrenia, bipolar, anxiety, antisocial. Interventions: Medication administration, 1:1 MH assessment, maintained a safe and supportive environment, provided clear and simple instructions, provided encouragement regarding performance of ADLs, monitored behaviors and maintained clear boundaries, maintained Q15 minute safety checks. Response: Pt. received asleep and awoke take his medications, he took without hesitation. He denies SI, HI, AH, VH. Pt. reports anxiety and requested PRN Ativan and nicotine lozenge; meds provided. Pt. took an early nap then walked around the unit listening to headphones. He continues to interact with to male cohorts and use the phone. He continues to present with calmer moods and seeks medications when agitated. Pt. approached this check writer salesperson requesting Ativan this afternoon stating, I need an Ativan, my Mom just fucking stresses me out referring to a recent phone call. Pt. continues to interact appropriately on the unit and is respectful toward staff. He is well groomed, good hygiene, and wears street clothes. Plan: Crisis interruption and stabilization in a safe and therapeutic environment, the [facility] plans to conserve him.
[2022-11-29 19:00] VITALS: BP 119/53; PULSE 78; RESP 18; TEMP 97.6; O2SAT 99
[2022-11-29] MEDS: quetiapine 100mg tablet PO SCH (20:23)
[2022-11-29] MEDS: OLANZAPINE 5 MG TABLET PO SCH (20:24)
--- NOTE | 2022-11-30 03:25 | NUR ---
Nursing Progress Note: Problem: Patient admitted on 5150 for DTO from our ER. Pt reported that he constantly has thoughts of killing people. He does not know where he can live. He is homeless, does not eat and not wearing shoes. Pt has history of Schizophrenia, bipolar, anxiety, antisocial. Interventions: Maintained a safe and supportive environment, administered medication per orders with no adverse side effects, provided clear and simple instructions, provided direction and encouragement, monitored behaviors and maintained clear boundaries, provided positive reinforcement, maintained Q15 min safety rounds. Response: Patient awake during change of shift in room. Patient denies to this LEATHER BELT SHAPER SI/HI, AH/VH. Denies depression, endorses anxiety during 1:1 assessment. No apparent delusions this shift, noted to be responding to internal stimuli. Talking on telephone in animated manner prior to HS snack; HS snack in community room with peers. Took all medications without any problems. Requested PRN nicotine lozenge and Ativan. Patient is asleep in bed. Plan: Patients medications continue to be monitored. The patient is being conserved and requires a safe and therapeutic environment until he is placed. Per SS notes, Chan's packet is currently being reviewed at [place], [facility], [place] [facility], [facility], and [facility].
[2022-11-30 07:00] VITALS: RESP 16; O2SAT 96
[2022-11-30 08:00] VITALS: BP 100/59; PULSE 75; RESP 18; TEMP 98.5; O2SAT 99
[2022-11-30] MEDS: multivitamins, therapeutics tablet PO SCH (08:04)
[2022-11-30] MEDS: OLANZapine 5mg rapidly disint. tablet PO SCH (08:04)
[2022-11-30] MEDS: busPIRone 5mg tablet PO SCH ×3 (08:04→20:00)
[2022-11-30] MEDS: docusate sod 100mg capsule PO SCH ×2 (08:04→20:00)
[2022-11-30] MEDS: NICOTINE POLACRILEX 2 MG LOZENGE BC PRN ×2 (08:22→16:31)
[2022-11-30] MEDS: LORazepam 1 MG tablet PO PRN ×2 (08:22→20:00)
--- NOTE | 2022-11-30 17:30 | NUR ---
Nursing Progress Note: Problem: Pt admitted on 5150 for DTO from our ER. Pt reported that he constantly has thoughts of killing people. He does not know where he can live. He is homeless, does not eat and not wearing shoes. Pt has history of Schizophrenia, bipolar, anxiety, antisocial. Interventions: Medication administration, 1:1 MH assessment, maintained a safe and supportive environment, provided clear and simple instructions, provided encouragement regarding performance of ADLs, monitored behaviors and maintained clear boundaries, maintained Q15 minute safety checks. Response: Patient asleep at shift change. He came down for breakfast and was compliant with AM medications. Patient denies all MH symptoms then requests a Nicotine lozenge and Ativan before taking a nap. He got up and put headphones on per his usual, then exercised in his room before going out to the patio with his peers. Patient continues to be calm, cooperative, and polite to staff. He reports that he wants to go to [facility] [place]. Plan: Crisis interruption and stabilization in a safe and therapeutic environment, the [facility] plans to conserve him.
[2022-11-30 19:06] VITALS: BP 132/47; PULSE 73; RESP 18; TEMP 97.5; O2SAT 99
[2022-11-30] MEDS: quetiapine 100mg tablet PO SCH (20:00)
[2022-11-30] MEDS: OLANZAPINE 5 MG TABLET PO SCH (20:00)
--- NOTE | 2022-12-01 03:45 | NUR ---
Nursing Progress Note: Problem: Patient admitted on 5150 for DTO from our ER. Pt reported that he constantly has thoughts of killing people. He does not know where he can live. He is homeless, does not eat and not wearing shoes. Pt has history of Schizophrenia, bipolar, anxiety, antisocial. Interventions: Maintained a safe and supportive environment, administered medication per orders with no adverse side effects, provided clear and simple instructions, provided direction and encouragement, monitored behaviors and maintained clear boundaries, provided positive reinforcement, maintained Q15 min safety rounds. Response: Patient is pleasant and cooperative; elevated mood and animated (laughing loudly). Compliant with medication but stated to himself, "how many pills does it take to keep me calm?" PRN Ativan was provided. Patient denies MH Sx but observed responding to IS. He paced, socialized and participated in HS snack prior to bed; observed sleeping and does not appear to be having difficulty. Plan: Patients medications continue to be monitored. The patient is being conserved and requires a safe and therapeutic environment until he is placed. Per SS notes, Chan's packet is currently being reviewed at [place] [facility], [place] [facility], [facility], [place] [facility], and [facility].
[2022-12-01 07:00] VITALS: RESP 16; O2SAT 97
[2022-12-01 08:00] VITALS: BP 115/57; PULSE 74; RESP 16; TEMP 98.6; O2SAT 92; O2SAT 97
[2022-12-01] MEDS: busPIRone 5mg tablet PO SCH ×3 (08:10→20:15)
[2022-12-01] MEDS: OLANZapine 5mg rapidly disint. tablet PO SCH (08:10)
[2022-12-01] MEDS: multivitamins, therapeutics tablet PO SCH (08:10)
[2022-12-01] MEDS: docusate sod 100mg capsule PO SCH ×2 (08:10→20:14)
[2022-12-01] MEDS: NICOTINE POLACRILEX 2 MG LOZENGE BC PRN ×2 (08:16→18:46)
[2022-12-01] MEDS: LORazepam 1 MG tablet PO PRN ×2 (08:16→18:46)
--- NOTE | 2022-12-01 14:57 | NUR ---
Nursing Progress Note Problem: Pt admitted on 5150 for DTO from our ER. Pt reported that he constantly has thoughts of killing people. He does not know where he can live. He is homeless, does not eat and not wearing shoes. Pt has history of Schizophrenia, bipolar, anxiety, antisocial. Interventions: 1:1 assessment, therapeutic communication, active listening, medication administration/education/monitoring, provided limit setting, distraction, redirection, reality orientation, and Q15 minute safety checks. Response: Received pt. sleeping in bed w/o distress at start of shift. Pt woke and was cooperative with vitals. Pt. awoke for breakfast and was cooperative with vitals. He took AM medications w/o issue and was cooperative with assessment questions and pleasant. He napped in AM after receiving Ativan for anxiety. He denies SI/HI and A/VHs. Pt continues is guarded and continues to isolate with headphones and in his room. Pt walks hallways throughout day and briefly watched TV. Plan: Crisis interruption and stabilization in a safe and therapeutic environment; [facility] him.
[2022-12-01 19:44] VITALS: BP 128/56; PULSE 75; RESP 16; TEMP 97.2; O2SAT 98
[2022-12-01] MEDS: quetiapine 100mg tablet PO SCH (20:14)
[2022-12-01] MEDS: OLANZAPINE 5 MG TABLET PO SCH (20:14)
--- NOTE | 2022-12-02 00:08 | NUR ---
Nursing Progress Note: Problem: Patient admitted on 5150 for DTO from our ER. Pt reported that he constantly has thoughts of killing people. He does not know where he can live. He is homeless, does not eat and not wearing shoes. Pt has history of Schizophrenia, bipolar, anxiety, antisocial. Interventions: Maintained a safe and supportive environment, administered medication per orders with no adverse side effects, provided clear and simple instructions, provided direction and encouragement, monitored behaviors and maintained clear boundaries, provided positive reinforcement, maintained Q15 min safety rounds. Response: Patient is awake pacing in bedroom at shift change with headphones on. Patient appears to be responding to internal stimuli. No report of HI. Patient denies SI. As well as AH and VH. Requested PRN ativan and nicotine lozenge. He took all bedtime medications without complaint. Patient participated in bedtime snack. Appears to bed asleep without difficulty. Plan: Patients medications continue to be monitored. The patient is being conserved and requires a safe and therapeutic environment until he is placed. Per SS notes, Chan's packet is currently being reviewed at [place], [facility], [facility], [facility], and [facility].
[2022-12-02 07:00] VITALS: RESP 16; O2SAT 96
[2022-12-02] MEDS: OLANZapine 5mg rapidly disint. tablet PO SCH (07:52)
[2022-12-02] MEDS: busPIRone 5mg tablet PO SCH ×3 (07:52→21:09)
[2022-12-02] MEDS: multivitamins, therapeutics tablet PO SCH (07:52)
[2022-12-02] MEDS: docusate sod 100mg capsule PO SCH ×2 (07:52→21:08)
[2022-12-02 08:00] VITALS: BP 121/42; PULSE 76; RESP 16; TEMP 97.4; O2SAT 98
--- NOTE | 2022-12-02 14:13 | NUR ---
Reassessment: Pt continues on vegetarian diet and eating well documented with 75-100% PO intake of meals while receiving double protein TID meeting estimated nutrient needs. LBM / receiving routine Colace and MoM PRN. No nutrition intervention implemented at this time. Will continue to monitor. Recommendations: 1. Continue vegetarian diet; double protein TID 2. Bowel care PRN 3. Weekly scaled wts Addendum: 12/02/22 at [address] Amended: Links added.
[2022-12-02 17:24] LABS: HIV ANTIBODY 1&2 RAPID NON-REACTIVE (Neg)
--- NOTE | 2022-12-02 17:47 | NUR ---
Nursing Progress Note: Problem: Pt admitted on 5150 for DTO from our ER. Pt reported that he constantly has thoughts of killing people. He does not know where he can live. He is homeless, does not eat and not wearing shoes. Pt has history of Schizophrenia, bipolar, anxiety, antisocial. Interventions: 1:1 assessment, therapeutic communication, active listening, medication administration/education/monitoring, provided limit setting, distraction, redirection, reality orientation, and Q15 minute safety checks. Response: Patient woke and attended breakfast with his peers. He was compliant with his AM meds. Patient then puts on headphones and goes to his room where he has loud delusional conversations with himself. He continues to be calm and cooperative, but guarded. Patient denies MH symptoms, but is observed responding to IS. He isolates a lot, but the headphones are his favored way to isolate. Patient can be labile, and the easiest way to aggravate him is to ask him personal questions about his mental health. He continues to be polite with staff and certain peers. Plan: Crisis interruption and stabilization in a safe and therapeutic environment, the [facility] plans to conserve him.
[2022-12-02] MEDS: NICOTINE POLACRILEX 2 MG LOZENGE BC PRN (17:49)
[2022-12-02] MEDS: LORazepam 1 MG tablet PO PRN (17:49)
[2022-12-02 19:00] VITALS: RESP 18; O2SAT 99
[2022-12-02 20:18] VITALS: BP 137/92; PULSE 70; RESP 18; TEMP 97.5; O2SAT 99
[2022-12-02] MEDS: OLANZAPINE 5 MG TABLET PO SCH (21:09)
[2022-12-02] MEDS: quetiapine 100mg tablet PO SCH (21:09)
--- NOTE | 2022-12-02 23:49 | NUR ---
Nursing Progress Note: Problem: Patient admitted on 5150 for DTO from our ER. Pt reported that he constantly has thoughts of killing people. He does not know where he can live. He is homeless, does not eat and not wearing shoes. Pt has history of Schizophrenia, bipolar, anxiety, antisocial. Interventions: Maintained a safe and supportive environment, administered medication per orders with no adverse side effects, provided clear and simple instructions, provided direction and encouragement, monitored behaviors and maintained clear boundaries, provided positive reinforcement, maintained Q15 min safety rounds. Response: Patient is awake in bedroom at shift change wearing headphones. Patient denies SI, HI, AH,VH. When asked how he is doing, patient sits on bed w/legs crossed and hands folded in lap and replies "he's just fine". Responds to internal stimuli. He is pleasant and cooperative. Self isolated most of the night to his bedroom. Participated in bedtime snack. No PRNs requested this shift. Took all medications without difficulty. Patient appears asleep without difficulty. Plan: Patients medications continue to be monitored. The patient is being conserved and requires a safe and therapeutic environment until he is placed. Per SS notes, Chan's packet is currently being reviewed at [facility], [place] [facility], [place] [facility], [place] [facility], and [facility].
[2022-12-03 07:50] VITALS: BP 124/63; PULSE 78; RESP 16; TEMP 98.1; O2SAT 98
[2022-12-03] MEDS: multivitamins, therapeutics tablet PO SCH (08:16)
[2022-12-03] MEDS: OLANZapine 5mg rapidly disint. tablet PO SCH (08:16)
[2022-12-03] MEDS: docusate sod 100mg capsule PO SCH ×2 (08:16→20:42)
[2022-12-03] MEDS: busPIRone 5mg tablet PO SCH ×3 (08:16→20:42)
[2022-12-03] MEDS: NICOTINE POLACRILEX 2 MG LOZENGE BC PRN ×3 (10:50→20:41)
[2022-12-03] MEDS: LORazepam 1 MG tablet PO PRN ×2 (10:50→20:41)
--- NOTE | 2022-12-03 16:03 | NUR ---
Nursing Progress Note: Problem: Pt admitted on 5150 for DTO from our ER. Pt reported that he constantly has thoughts of killing people. He does not know where he can live. He is homeless, does not eat and not wearing shoes. Pt has history of Schizophrenia, bipolar, anxiety, antisocial. Interventions: 1:1 assessment, therapeutic communication, active listening, medication administration/education/monitoring, provided limit setting, distraction, redirection, reality orientation, and Q15 minute safety checks. Response: Patient received resting quietly in bed. Cooperative with medications. Generally cooperative with assessment but is guarded. Patient talks about the philosophy books he is reading and the philosophy in the bible with an emphasis on the devil. Paces the unit at times. Wears headphones most of the time. He is noted having long enthusiastic conversations with himself in his room. Plan: Crisis interruption and stabilization in a safe and therapeutic environment, the [facility] plans to conserve him.
[2022-12-03 19:00] VITALS: RESP 16; O2SAT 99
[2022-12-03 20:00] VITALS: BP 113/55; PULSE 89; RESP 16; TEMP 98.2; O2SAT 99
[2022-12-03] MEDS: quetiapine 100mg tablet PO SCH (20:42)
[2022-12-03] MEDS: OLANZAPINE 5 MG TABLET PO SCH (20:42)
--- NOTE | 2022-12-04 05:15 | NUR ---
Nursing Progress Note: Problem: Pt admitted on 5150 for DTO from our ER. Pt reported that he constantly has thoughts of killing people. He does not know where he can live. He is homeless, does not eat and not wearing shoes. Pt has history of Schizophrenia, bipolar, anxiety, antisocial. Interventions: 1:1 assessment, therapeutic communication, active listening, medication administration/education/monitoring, provided limit setting, distraction, redirection, reality orientation, and Q15 minute safety checks. Response: Patient was received standing in doorway talking to other patients. Patient continued to pace halls talking to others and telling story in his doorway. Patient requested prn nicotine lozenge and Ativan. Patient was observed telling other patient how he survived begin in nursing home and what he is going to do when his trail is over. He was also telling them which gangs to avoid. Patient was redirected to snack time. Patient took all night medications without issue. Patient grabbed headphones and laid in bed listening to music until going to bed. Plan: Crisis interruption and stabilization in a safe and therapeutic environment, the [facility] plans to conserve him.
[2022-12-04 07:10] VITALS: BP 108/45; PULSE 78; RESP 16; TEMP 98.3; O2SAT 98
[2022-12-04 07:21] VITALS: BP 108/45; PULSE 78; RESP 16; TEMP 98.3; O2SAT 98
[2022-12-04] MEDS: multivitamins, therapeutics tablet PO SCH (08:14)
[2022-12-04] MEDS: busPIRone 5mg tablet PO SCH ×3 (08:14→20:11)
[2022-12-04] MEDS: docusate sod 100mg capsule PO SCH ×2 (08:14→20:11)
[2022-12-04] MEDS: OLANZapine 5mg rapidly disint. tablet PO SCH (08:14)
[2022-12-04] MEDS: NICOTINE POLACRILEX 2 MG LOZENGE BC PRN ×2 (12:19→17:30)
[2022-12-04] MEDS: LORazepam 1 MG tablet PO PRN ×2 (12:19→17:30)
--- NOTE | 2022-12-04 15:22 | NUR ---
Nursing Progress Note: Problem: Pt admitted on 5150 for DTO from our ER. Pt reported that he constantly has thoughts of killing people. He does not know where he can live. He is homeless, does not eat and not wearing shoes. Pt has history of Schizophrenia, bipolar, anxiety, antisocial. Interventions: 1:1 assessment, therapeutic communication, active listening, medication administration/education/monitoring, provided limit setting, distraction, redirection, reality orientation, and Q15 minute safety checks. Response: Patient received resting quietly in bed. Cooperative with assessment and medications. Polite and pleasant with staff and peers. Appears guarded and isolates to his room for most of the day with headphones on. Paces the unit at times. [place] laughing loudly to himself in his room alone. Noted talking to himself frequently. When he hears a conversation that interests him patient takes headphones off and will stop to socialize but moves on quickly. Plan: Crisis interruption and stabilization in a safe and therapeutic environment, [facility]
[2022-12-04 19:00] VITALS: BP 136/61; PULSE 61; RESP 18; TEMP 98.2; O2SAT 99
[2022-12-04] MEDS: quetiapine 100mg tablet PO SCH (20:11)
[2022-12-04] MEDS: OLANZAPINE 5 MG TABLET PO SCH (20:11)
--- NOTE | 2022-12-05 01:44 | NUR ---
Nursing Progress Note: Chan Problem: Pt admitted on 5150 for DTO from our ER. Pt reported that he constantly has thoughts of killing people. He does not know where he can live. He is homeless, does not eat and not wearing shoes. Pt has history of Schizophrenia, bipolar, anxiety, antisocial. Interventions: 1:1 assessment, therapeutic communication, active listening, medication administration/education/monitoring, provided limit setting, distraction, redirection, reality orientation, and Q15 minute safety checks. Response: Patient received pacing with headphones on. Pt calm and cooperative with peers and staff. Cooperative with assessment and medications. Pt up for snacks but quickly returned to his room where he isolated the rest of the evening. Pt is currently asleep with no needs or requests. Plan: Crisis interruption and stabilization in a safe and therapeutic environment, the [facility] plans to conserve him.
[2022-12-05 07:00] VITALS: RESP 18; O2SAT 96
[2022-12-05] MEDS: OLANZapine 5mg rapidly disint. tablet PO SCH (07:36)
[2022-12-05] MEDS: multivitamins, therapeutics tablet PO SCH (07:36)
[2022-12-05] MEDS: busPIRone 5mg tablet PO SCH ×3 (07:36→20:29)
[2022-12-05] MEDS: docusate sod 100mg capsule PO SCH ×2 (07:36→20:34)
[2022-12-05 08:00] VITALS: BP 120/67; PULSE 80; RESP 16; TEMP 97.2; O2SAT 99
[2022-12-05] MEDS: NICOTINE POLACRILEX 2 MG LOZENGE BC PRN ×4 (08:22→19:20)
[2022-12-05] MEDS: LORazepam 1 MG tablet PO PRN ×3 (08:22→20:32)
--- NOTE | 2022-12-05 13:43 | NUR ---
Nursing Progress Note: Problem: Pt admitted on 5150 for DTO from our ER. Pt reported that he constantly has thoughts of killing people. He does not know where he can live. He is homeless, does not eat and not wearing shoes. Pt has history of Schizophrenia, bipolar,anxiety,antisocial. Interventions: 1:1 assessment, therapeutic communication, active listening, ensured contract for safety, medication administration/education/monitoring, behavior monitoring and intervention as needed; provided reality orientation, distraction, redirection, positive reinforcement, and Q15 minute safety checks. Response: Pt was up before breakfast pacing the hallway. Pt listens to the radio headphones. Pt was cooperative with scheduled medications. After breakfast, pt requested PRN Ativan 2 mg and a nicotine lozenge, they were given at 0822 with good effect. Pt asked another RN for the Ativan and a nicotine lozenge again around 1200. He was given the nicotine lozenge. It was explained that it was too soon for more Ativan. Pt was given his routine Buspar 10 mg. Pt is again approaching the nurses' charting room to ask when he can have more Ativan. Asked pt if anything in particular was making him feel more anxious today. Pt replied, "I'm just kind of always anxious." Will administer PRN Ativan 2 mg. Pt denies depression, SI/HI/AH/VH. Plan: Pt is conserved and awaiting placement.
--- NOTE | 2022-12-05 14:28 | NUR ---
Sent updated notes to [facility] office (11/20/22-12/04/22) for placement purposes. MARIA LUISA Villeda
[2022-12-05 19:00] VITALS: BP 134/92; PULSE 74; RESP 16; TEMP 98.2; O2SAT 99
[2022-12-05] MEDS: quetiapine 100mg tablet PO SCH (20:32)
[2022-12-05] MEDS: OLANZAPINE 5 MG TABLET PO SCH (20:33)
--- NOTE | 2022-12-06 05:08 | NUR ---
Nursing Progress Note: Problem: Pt admitted on 5150 for DTO from our ER. Pt reported that he constantly has thoughts of killing people. He does not know where he can live. He is homeless, does not eat and not wearing shoes. Pt has history of Schizophrenia, bipolar,anxiety,antisocial. Interventions: 1:1 assessment, therapeutic communication, active listening, ensured contract for safety, medication administration/education/monitoring, behavior monitoring and intervention as needed; provided reality orientation, distraction, redirection, positive reinforcement, and Q15 minute safety checks. Response: Patient was received standing in room listening to head phones and talking to him self. Patient eventually came out of room and socialized with other patients even pacing halls talking. Patient requested prn nicotine lozenge and Ativan. Nicotine lozenge was give right away. Prn Ativan was given along side schedule night medications which patient took without issue. Patient participated in snack and then retuned to walking around room and listening to music. 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 Plan: Pt is conserved and awaiting placement.
[2022-12-06 07:00] VITALS: RESP 12; O2SAT 96
[2022-12-06] MEDS: OLANZapine 5mg rapidly disint. tablet PO SCH (07:34)
[2022-12-06] MEDS: busPIRone 5mg tablet PO SCH ×3 (07:34→21:24)
[2022-12-06] MEDS: multivitamins, therapeutics tablet PO SCH (07:34)
[2022-12-06] MEDS: docusate sod 100mg capsule PO SCH ×2 (07:34→20:18)
[2022-12-06 08:00] VITALS: BP 106/50; PULSE 84; RESP 12; TEMP 98; O2SAT 96
[2022-12-06] MEDS: NICOTINE POLACRILEX 2 MG LOZENGE BC PRN ×2 (09:15→15:43)
[2022-12-06] MEDS: LORazepam 1 MG tablet PO PRN ×2 (09:15→16:49)
--- NOTE | 2022-12-06 17:27 | NUR ---
Nursing Progress Note: Problem: Pt admitted on 5150 for DTO from our ER. Pt reported that he constantly has thoughts of killing people. He does not know where he can live. He is homeless, does not eat and not wearing shoes. Pt has history of Schizophrenia, bipolar,anxiety,antisocial. Interventions: 1:1 assessment, therapeutic communication, active listening, ensured contract for safety, medication administration/education/monitoring, behavior monitoring and intervention as needed; provided distraction, redirection, positive reinforcement, and Q15 minute safety checks. Response: Pt was up before breakfast. Pt was cooperative with his medications. Pt requested PRN Ativan 2 mg for c/o increased anxiety at 0915 & 1649 with good effect. Pt requested nicotine lozenges at 0915 & 1543. Pt socializes with select peers, pt is polite with staff. Pt asked about his testosterone results. No inappropriate of unsafe behaviors noted today. Pt denies depression, SI/HI/AH/VH. Pt is articulate and somewhat animated at times. Pt made several phone calls today. Plan: Pt is conserved and awaiting placement.
[2022-12-06 19:00] VITALS: BP 137/71; PULSE 60; RESP 16; TEMP 98.4; O2SAT 99
[2022-12-06] MEDS: OLANZAPINE 5 MG TABLET PO SCH (20:17)
[2022-12-06] MEDS: quetiapine 100mg tablet PO SCH (20:18)
--- NOTE | 2022-12-07 05:22 | NUR ---
Nursing Progress Note: Problem: Pt admitted on 5150 for DTO from our ER. Pt reported that he constantly has thoughts of killing people. He does not know where he can live. He is homeless, does not eat and not wearing shoes. Pt has history of Schizophrenia, bipolar,anxiety,antisocial. Interventions: 1:1 assessment, therapeutic communication, active listening, ensured contract for safety, medication administration/education/monitoring, behavior monitoring and intervention as needed; provided distraction, redirection, positive reinforcement, and Q15 minute safety checks. Response: Patient was found pacing hallways listening to headphones at change of shift. Patient continued to pace halls and socialize with other patients through out shift. Patient was polite and cooperative with staff and other patients. Patient did have to be cautioned to avoid fellow patient due to other patient delusions about him. Patient took all night medications without issue and retuned to room. Plan: Pt is conserved and awaiting placement.
[2022-12-07 07:00] VITALS: RESP 16; O2SAT 95
[2022-12-07 08:00] VITALS: BP 103/54; PULSE 71; RESP 16; TEMP 98.1; O2SAT 95
[2022-12-07] MEDS: docusate sod 100mg capsule PO SCH ×2 (08:02→19:50)
[2022-12-07] MEDS: busPIRone 5mg tablet PO SCH ×3 (08:02→19:50)
[2022-12-07] MEDS: OLANZapine 5mg rapidly disint. tablet PO SCH (08:02)
[2022-12-07] MEDS: multivitamins, therapeutics tablet PO SCH (08:02)
[2022-12-07] MEDS: LORazepam 1 MG tablet PO PRN ×3 (08:04→19:07)
[2022-12-07] MEDS: NICOTINE POLACRILEX 2 MG LOZENGE BC PRN ×4 (08:04→19:06)
--- NOTE | 2022-12-07 15:59 | NUR ---
Nursing Progress Note: Problem: Pt admitted on 5150 for DTO from our ER. Pt reported that he constantly has thoughts of killing people. He does not know where he can live. He is homeless, does not eat and not wearing shoes. Pt has history of Schizophrenia, bipolar,anxiety,antisocial. Interventions: 1:1 assessment, therapeutic communication, active listening, ensured contract for safety, medication administration/education/monitoring, behavior monitoring and intervention as needed; provided distraction, redirection, positive reinforcement, and Q15 minute safety checks. Response: Pt was up before breakfast. Pt was cooperative with his medications. Pt expressed to this GRAVITY METER OBSERVER during 1:1 SI/HI, -AV/H. Pt well-groomed with good hygiene wearing street clothes. PRN Ativan and Nicotine Lozenges. Pt socializes with select peers, pacing hallways wearing headphones. Does not appear to be responding to internal stimuli. Pt is polite with staff. No inappropriate of unsafe behaviors noted today. Participate with group and watched football game with peers in TV room. Plan: Pt is conserved and awaiting placement.
--- NOTE | 2022-12-07 16:00 | NUR ---
Nursing Progress Note: Problem: Pt admitted on 5150 for DTO from our ER. Pt reported that he constantly has thoughts of killing people. He does not know where he can live. He is homeless, does not eat and not wearing shoes. Pt has history of Schizophrenia, bipolar,anxiety,antisocial. Interventions: 1:1 assessment, therapeutic communication, active listening, ensured contract for safety, medication administration/education/monitoring, behavior monitoring and intervention as needed; provided distraction, redirection, positive reinforcement, and Q15 minute safety checks. Response: Pt was up before breakfast. Pt was cooperative with his medications. Pt expressed to this WEBFED OFFSET PRESS OPERATOR during 1:1 SI/HI, -AV/H. Pt well-groomed with good hygiene wearing street clothes. PRN Ativan and Nicotine Lozenges. Pt socializes with select peers, pacing hallways wearing headphones. Does not appear to be responding to internal stimuli. Pt is polite with staff. No inappropriate of unsafe behaviors noted today. Participate with group and watched football game with peers in TV room. Plan: Pt is conserved and awaiting placement.
--- NOTE | 2022-12-07 16:02 | NUR ---
Nursing Progress Note: Problem: Pt admitted on 5150 for DTO from our ER. Pt reported that he constantly has thoughts of killing people. He does not know where he can live. He is homeless, does not eat and not wearing shoes. Pt has history of Schizophrenia, bipolar,anxiety,antisocial. Interventions: 1:1 assessment, therapeutic communication, active listening, ensured contract for safety, medication administration/education/monitoring, behavior monitoring and intervention as needed; provided distraction, redirection, positive reinforcement, and Q15 minute safety checks. Response: Pt was up before breakfast. Pt was cooperative with his medications. Pt expressed to this SODA COLUMN OPERATOR during 1:1 SI/HI, -AV/H. Pt well-groomed with good hygiene wearing street clothes. PRN Ativan and Nicotine Lozenges. Pt socializes with select peers, pacing hallways wearing headphones. Does not appear to be responding to internal stimuli. Pt is polite with staff. No inappropriate of unsafe behaviors noted today. Participate with group and watched football game with peers in TV room. Plan: Pt is conserved and awaiting placement.
[2022-12-07] MEDS: quetiapine 100mg tablet PO SCH (19:50)
[2022-12-07] MEDS: OLANZAPINE 5 MG TABLET PO SCH (19:51)
[2022-12-07 20:14] VITALS: BP 132/87; PULSE 85; RESP 18; TEMP 97.4; O2SAT 98
--- NOTE | 2022-12-08 01:24 | NUR ---
Nursing Progress Note: Chan Problem: Pt admitted on 5150 for DTO from our ER. Pt reported that he constantly has thoughts of killing people. He does not know where he can live. He is homeless, does not eat and not wearing shoes. Pt has history of Schizophrenia, bipolar,anxiety,antisocial. Interventions: 1:1 assessment, therapeutic communication, active listening, ensured contract for safety, medication administration/education/monitoring, behavior monitoring and intervention as needed; provided distraction, redirection, positive reinforcement, and Q15 minute safety checks. Response: Pt up pacing the unit. Pt requested Ativan for anxiety and nicotine lozenge. 2MG Ativan given with good effect. Pt continued to pace the unit conversing with peers and staff. Pt denies MH symptoms and states he is doing well. Pt states he will try using nicer words on the unit and not cuss so much. Pt cooperative with HS medications and participated in snacks. Plan: Pt is conserved and awaiting placement.
[2022-12-08] MEDS: docusate sod 100mg capsule PO SCH ×2 (07:31→20:30)
[2022-12-08] MEDS: multivitamins, therapeutics tablet PO SCH (07:31)
[2022-12-08] MEDS: OLANZapine 5mg rapidly disint. tablet PO SCH (07:32)
[2022-12-08] MEDS: busPIRone 5mg tablet PO SCH ×3 (07:32→20:31)
[2022-12-08] MEDS: NICOTINE POLACRILEX 2 MG LOZENGE BC PRN ×4 (07:57→21:45)
[2022-12-08] MEDS: LORazepam 1 MG tablet PO PRN ×3 (07:57→20:31)
[2022-12-08 08:00] VITALS: BP 132/77; PULSE 86; RESP 12; TEMP 97.8; O2SAT 98
[2022-12-08 08:22] VITALS: BP 132/77; PULSE 86; RESP 12; TEMP 97.8; O2SAT 98
--- NOTE | 2022-12-08 15:39 | NUR ---
Nursing Progress Note: Problem: Pt admitted on 5150 for DTO from our ER. Pt reported that he constantly has thoughts of killing people. He does not know where he can live. He is homeless, does not eat and not wearing shoes. Pt has history of Schizophrenia, bipolar, anxiety, antisocial. Interventions: 1:1 assessment, therapeutic communication, active listening, ensured contract for safety, medication administration/education/monitoring, behavior monitoring and intervention as needed; provided distraction, redirection, positive reinforcement, and Q15 minute safety checks. Response: Patient received resting quietly in bed. Awake prior to breakfast drinking coffee and pacing listening to headphones. Cooperative with 1:1 assessment and medications. Denies any mental health symptoms at this time. Patient is polite and pleasant to staff and peers. While socializing patient is heard talking about rape and murder and requires re-direction. Paces his room and the unit frequently. Makes comments about the devil and devil worshiping. Appears to be responding to internal stimuli. Plan: Pt is conserved and awaiting placement.
[2022-12-08 20:00] VITALS: BP 129/54; PULSE 66; RESP 18; TEMP 97.7; O2SAT 100
[2022-12-08] MEDS: quetiapine 100mg tablet PO SCH (20:30)
[2022-12-08] MEDS: OLANZAPINE 5 MG TABLET PO SCH (20:30)
--- NOTE | 2022-12-09 02:11 | NUR ---
Nursing Progress Note: Chan Problem: Pt admitted on 5150 for DTO from our ER. Pt reported that he constantly has thoughts of killing people. He does not know where he can live. He is homeless, does not eat and not wearing shoes. Pt has history of Schizophrenia, bipolar, anxiety, antisocial. Interventions: 1:1 assessment, therapeutic communication, active listening, ensured contract for safety, medication administration/education/monitoring, behavior monitoring and intervention as needed; provided distraction, redirection, positive reinforcement, and Q15 minute safety checks. Response: Patient received pacing with headphones on in his room. Cooperative with assessment and medications. Denies MH symptoms and states Im good! Pt is polite and pleasant with peers and staff. Pt participated in snacks and was calm before bedtime. Plan: Pt is conserved and awaiting placement.
[2022-12-09 07:00] VITALS: RESP 15; O2SAT 99
[2022-12-09 08:00] VITALS: BP 114/48; PULSE 78; RESP 15; TEMP 98.9; O2SAT 99
[2022-12-09] MEDS: multivitamins, therapeutics tablet PO SCH (08:48)
[2022-12-09] MEDS: docusate sod 100mg capsule PO SCH ×2 (08:48→20:54)
[2022-12-09] MEDS: OLANZapine 5mg rapidly disint. tablet PO SCH (08:49)
[2022-12-09] MEDS: busPIRone 5mg tablet PO SCH ×3 (08:49→20:55)
[2022-12-09] MEDS: NICOTINE POLACRILEX 2 MG LOZENGE BC PRN ×2 (10:16→16:13)
--- NOTE | 2022-12-09 15:27 | NUR ---
Therapeutic group Description: Daily therapeutic groups support [facility] crisis-stabilization mission. Topic: psycho-social education regarding warm lines, crisis lines, having the numbers your need with you (providers, emergency contacts, etc). Exercise: identifying the emotions in your heart, and the amount. Intervention: Therapeutic communication, peer support, validation by peers, coping skills and psychosocial education. Secondarily, intellectual and physical activity, peer, and staff companionship, alleviating and discouraging isolation. Response: Client said the handout on warm lines, crisis line, and local resources is exactly "what he wanted". Treatment Until stable, client requires time in a safe and therapeutic environment employing multidisciplinary treatments, including therapeutic groups.
[2022-12-09] MEDS: LORazepam 1 MG tablet PO PRN (16:13)
--- NOTE | 2022-12-09 18:05 | NUR ---
Nursing Progress Note Problem: Pt admitted on 5150 for DTO from our ER. Pt reported that he constantly has thoughts of killing people. He does not know where he can live. He is homeless, does not eat and not wearing shoes. Pt has history of Schizophrenia, bipolar, anxiety, antisocial. Interventions: 1:1 assessment, therapeutic communication, active listening, medication administration/education/monitoring, provided limit setting, distraction, redirection, reality orientation, and Q15 minute safety checks. Response: Received pt. sleeping in bed w/o distress at start of shift. Pt woke and was cooperative with vitals. Pt. awoke for breakfast and was cooperative with vitals. He took AM medications w/o issue and was cooperative with assessment questions and pleasant. Pt interacted well with staff and other Pts in afternoon and napped in the AM. Pt denies SI/HI and remains delusional and endorses AHs. Overall pleasant and cooperative. Plan: Crisis interruption and stabilization in a safe and therapeutic environment; the county plans to conserve him.
[2022-12-09 19:00] VITALS: RESP 16; O2SAT 97
[2022-12-09 20:00] VITALS: BP 126/81; PULSE 87; RESP 16; TEMP 97.3; O2SAT 97
[2022-12-09] MEDS: OLANZAPINE 5 MG TABLET PO SCH (20:54)
[2022-12-09] MEDS: quetiapine 100mg tablet PO SCH (20:54)
--- NOTE | 2022-12-10 02:22 | NUR ---
Nursing Progress Note: Chan Problem: Pt admitted on 5150 for DTO from our ER. Pt reported that he constantly has thoughts of killing people. He does not know where he can live. He is homeless, does not eat and not wearing shoes. Pt has history of Schizophrenia, bipolar, anxiety, antisocial. Interventions: 1:1 assessment, therapeutic communication, active listening, ensured contract for safety, medication administration/education/monitoring, behavior monitoring and intervention as needed; provided distraction, redirection, positive reinforcement, and Q15 minute safety checks. Response: received pt. walking around at shift change. He is observed socializing w/ another male peer while walking the lion. spent his evening between the community room and bedroom. Participated in snack. He is pleasant, cooperative and compliant with medications. Denies SI/HI. Patient was in bed early. Patient appears to be sleeping at this time. Plan: Pt is conserved and awaiting placement.
[2022-12-10 07:00] VITALS: RESP 15; O2SAT 98
[2022-12-10 08:00] VITALS: BP 114/58; PULSE 55; RESP 15; TEMP 97.4; O2SAT 98
[2022-12-10] MEDS: multivitamins, therapeutics tablet PO SCH (08:02)
[2022-12-10] MEDS: OLANZapine 5mg rapidly disint. tablet PO SCH (08:03)
[2022-12-10] MEDS: docusate sod 100mg capsule PO SCH ×2 (08:03→20:18)
[2022-12-10] MEDS: busPIRone 5mg tablet PO SCH ×3 (08:03→20:19)
[2022-12-10] MEDS: NICOTINE POLACRILEX 2 MG LOZENGE BC PRN ×3 (09:07→18:44)
[2022-12-10] MEDS: LORazepam 1 MG tablet PO PRN ×2 (09:07→16:14)
--- NOTE | 2022-12-10 14:39 | NUR ---
Nursing Progress Note: Problem: Pt admitted on 5150 for DTO from our ER. Pt reported that he constantly has thoughts of killing people. He does not know where he can live. He is homeless, does not eat and not wearing shoes. Pt has history of Schizophrenia, bipolar,anxiety,antisocial. Interventions: 1:1 assessment, therapeutic communication, active listening, medication administration/education/monitoring, behavior monitoring and intervention as needed; provided distraction, redirection, limit setting, positive reinforcement, and Q15 minute safety checks. Response: Pt was up before breakfast animatedly speaking with male peers about his various theories. Pt presents with an elevated mood and makes statements about the [employer] shinto and about what is going to happen to this country. Pt spoke about gangs and how they have been publicized. He also stated that [place], [place], and [place] will merge post pandemic because the churches are buying up so much property, in particular the [employer] sh[employer]. Pt stated, "basically we're going to have a mafia, gonna be less gang and more the people...the racial population is how it's gonna work, but it's gonna be owned by the shinto. Everything the people can jose guadalupe is going to go bankrupt and the shinto will buy it. There's gonna be a otis, shinto law, mafia and we're not going to be able to vote. Pt was cooperative with his routine medications. Pt requested PRN Ativan 2 mg and a nicotine lozenge at 0907 with good effect. His am Zydis was increased back up to 15 mg. Plan: Pt is conserved and awaiting placement.
[2022-12-10 19:00] VITALS: RESP 16; O2SAT 99
[2022-12-10 20:00] VITALS: BP 123/55; PULSE 68; RESP 16; TEMP 97.9; O2SAT 99
[2022-12-10] MEDS: OLANZAPINE 5 MG TABLET PO SCH (20:19)
[2022-12-10] MEDS: quetiapine 100mg tablet PO SCH (20:19)
--- NOTE | 2022-12-11 01:43 | NUR ---
Nursing Progress Note: Chan Problem: Pt admitted on 5150 for DTO from our ER. Pt reported that he constantly has thoughts of killing people. He does not know where he can live. He is homeless, does not eat and not wearing shoes. Pt has history of Schizophrenia, bipolar, anxiety, antisocial. Interventions: 1:1 assessment, therapeutic communication, active listening, ensured contract for safety, medication administration/education/monitoring, behavior monitoring and intervention as needed; provided distraction, redirection, positive reinforcement, and Q15 minute safety checks. Response: received pt. wearing headphones and walking the lion. Requested PRN nicotine lozenge. Denies SI/HI. He spends time between the community room and bedroom. Pt. is observed socializing with another peer and overheard speaking about culture and food. Participated in snack. No behaviors noted on shift. Appears to be sleeping at this time. Plan: Pt is conserved and awaiting placement.
[2022-12-11] MEDS: LORazepam 1 MG tablet PO PRN ×3 (07:20→19:56)
[2022-12-11] MEDS: docusate sod 100mg capsule PO SCH ×2 (07:21→19:55)
[2022-12-11] MEDS: multivitamins, therapeutics tablet PO SCH (07:21)
[2022-12-11] MEDS: OLANZapine 5mg rapidly disint. tablet PO SCH (07:21)
[2022-12-11] MEDS: NICOTINE POLACRILEX 2 MG LOZENGE BC PRN ×3 (07:21→18:34)
[2022-12-11] MEDS: busPIRone 5mg tablet PO SCH ×3 (07:21→19:56)
[2022-12-11 07:37] VITALS: BP 119/71; PULSE 81; RESP 16; TEMP 97.6; O2SAT 98
--- NOTE | 2022-12-11 08:22 | NUR ---
F/u 12/11: Pt continues PO 100% avg meals receiving double eggs WB and double entree BIDLD meeting estimated nutrient needs. LBM 12/08. No nutrition intervention implemented at this time. Will continue to monitor. Recommendations: 1. Continue vegetarian diet; double eggs WB, double entree BIDLD 2. Bowel care PRN 3. Weekly scaled wts Addendum: 12/11/22 at [address] Amended: Links added.
--- NOTE | 2022-12-11 15:27 | NUR ---
Nursing Progress Note: Problem: Pt admitted on 5150 for DTO from our ER. Pt reported that he constantly has thoughts of killing people. He does not know where he can live. He is homeless, does not eat and not wearing shoes. Pt has history of Schizophrenia, bipolar,anxiety,antisocial. Interventions: 1:1 assessment, therapeutic communication, active listening, medication administration/education/monitoring, behavior monitoring and intervention as needed; provided distraction, redirection, limit setting, positive reinforcement, and Q15 minute safety checks. Response: Patient is pleasant and cooperative with care; compliant with medication. PRN Ativan and Nicotine lozenges provided. He denies SI, HI, A/VH; however, patient appears to be responding to IS. Patient mostly isolative to his room (paces). Patient participated in meals, snacks and a group this shift. He was observed making phone calls; no threats over heard. Plan: Pt is conserved and awaiting placement.
[2022-12-11 19:00] VITALS: RESP 18; O2SAT 99
[2022-12-11] MEDS: quetiapine 100mg tablet PO SCH (19:56)
[2022-12-11] MEDS: OLANZAPINE 5 MG TABLET PO SCH (19:56)
[2022-12-11 20:41] VITALS: BP 129/69; PULSE 71; RESP 18; TEMP 98.2; O2SAT 99
--- NOTE | 2022-12-12 01:41 | NUR ---
Nursing Progress Note: Problem: Pt admitted on 5150 for DTO from our ER. Pt reported that he constantly has thoughts of killing people. He does not know where he can live. He is homeless, does not eat and not wearing shoes. Pt has history of Schizophrenia, bipolar,anxiety,antisocial. Interventions: 1:1 assessment, therapeutic communication, active listening, medication administration/education/monitoring, behavior monitoring and intervention as needed; provided distraction, redirection, limit setting, positive reinforcement, and Q15 minute safety checks. Response: received pt. awake and walking around with headphones on. Pt. is cooperative and pleasant. Requested PRN nicotine lozenge and ativan. Lozenge was provided and ativan was given with night time medications. Denies SI,AH/VH. Continues with delusions and being hyperverbal. Standing in hallway in front of a male peers room speaking about Hispanics and black people, cartels and the job industry. Compliant with medications. Participated in snack and socialized with peers. Went to bed shortly after. Pt. appears to be sleeping at this time. Plan: Pt is conserved and awaiting placement.
[2022-12-12 07:00] VITALS: RESP 16; O2SAT 98
[2022-12-12 08:00] VITALS: BP 120/80; PULSE 67; RESP 16; TEMP 97.9; O2SAT 98
[2022-12-12] MEDS: multivitamins, therapeutics tablet PO SCH (08:23)
[2022-12-12] MEDS: docusate sod 100mg capsule PO SCH ×2 (08:23→20:13)
[2022-12-12] MEDS: OLANZapine 5mg rapidly disint. tablet PO SCH (08:23)
[2022-12-12] MEDS: busPIRone 5mg tablet PO SCH ×3 (08:23→20:13)
[2022-12-12] MEDS: LORazepam 1 MG tablet PO PRN ×2 (12:45→20:14)
--- NOTE | 2022-12-12 13:37 | NUR ---
Nursing Progress Note: Problem : Pt admitted on 5150 for DTO from our ER. Pt reported that he constantly has thoughts of killing people. He does not know where he can live. He is homeless, does not eat and not wearing shoes. Pt has history of Schizophrenia; Bipolar; Anxiety; & Antisocial. Interventions : Maintained a safe and supportive environment, provided clear and simple instructions, attempted to orient to reality, monitored behaviors and need for intervention, and maintained Q 15min safety checks. Response : Received pt. sleeping in bed at the beginning of the shift, he awoke to attend breakfast in the Group Room and afterwards remained up listening to music on headphones. Pt. greeted this public relations writer and presents with an elevated mood, smiling widely, and exhibiting intermittent euphoric laughter. Pt. made multiple telephone calls throughout the morning and was overheard talking about various delusional theories. Pt. stated, "I have a cure for HIV," he goes on to report that agencies can use [employer] to help pay for his cure. Pt. later reported, that he has invented a tracking device to locate missing persons. These delusions were endorsed to Dr. Meneses, who plans to adjust pt's medications if necessary. Pt. requested PRN Ativan for anxiety at approximately 1245, and medication was administered with effectiveness. Pt. was observed to be working out in his room at intervals. He did not exhibit any agitated outbursts this shift. Plan : Per CANDELARIO Jay, pt. continues to exhibit psychotic delusional statements and requires medication adjustments.
--- NOTE | 2022-12-12 15:20 | NUR ---
Sent updated notes 12/05-12/11 to [facility] office for placement purposes. MARIA LUISA Villeda
--- NOTE | 2022-12-12 15:23 | NUR ---
PLACEMENT UPDATE Client's packet is in queue at [facility], [facility], [facility], [facility], [facility], and [facility]. Client has been declined at [facility]. MARIA LUISA Villeda
[2022-12-12 19:57] VITALS: BP 133/74; PULSE 66; RESP 14; TEMP 97.6; O2SAT 99
[2022-12-12] MEDS: NICOTINE POLACRILEX 2 MG LOZENGE BC PRN (20:14)
[2022-12-12] MEDS: quetiapine 100mg tablet PO SCH (20:14)
[2022-12-12] MEDS: OLANZAPINE 5 MG TABLET PO SCH (20:14)
--- NOTE | 2022-12-13 05:10 | NUR ---
Nursing Progress Note: Problem: Pt admitted on 5150 for DTO from our ER. Pt reported that he constantly has thoughts of killing people. He does not know where he can live. He is homeless, does not eat and not wearing shoes. Pt has history of Schizophrenia, bipolar,anxiety,antisocial. Interventions: 1:1 assessment, therapeutic communication, active listening, medication administration/education/monitoring, behavior monitoring and intervention as needed; provided distraction, redirection, limit setting, positive reinforcement, and Q15 minute safety checks. Response: Patient is pleasant and cooperative with care; compliant with medication. PRN Ativan and Nicotine lozenge provided. Patient denies SI, HI, A/VH. Overheard reporting delusional thought content (conspiracies) to peers. No outbursts or loudly preaching out of his room door this shift. Patient participated in HS snack and continued to socialize with peers prior to bed; observed sleeping and does not appear to be having difficulty. Plan: Pt is conserved and awaiting placement.
[2022-12-13 07:00] VITALS: RESP 16; O2SAT 94
[2022-12-13 08:00] VITALS: BP 105/64; PULSE 78; RESP 16; TEMP 97.3; O2SAT 94
[2022-12-13] MEDS: OLANZapine 5mg rapidly disint. tablet PO SCH (08:18)
[2022-12-13] MEDS: multivitamins, therapeutics tablet PO SCH (08:18)
[2022-12-13] MEDS: busPIRone 5mg tablet PO SCH ×3 (08:18→20:45)
[2022-12-13] MEDS: docusate sod 100mg capsule PO SCH ×2 (08:18→20:44)
[2022-12-13] MEDS: NICOTINE POLACRILEX 2 MG LOZENGE BC PRN ×4 (08:46→19:03)
[2022-12-13] MEDS: LORazepam 1 MG tablet PO PRN ×3 (11:04→20:44)
--- NOTE | 2022-12-13 14:46 | NUR ---
Nursing Progress Note: Problem : Pt admitted on 515 for DTO from our ER. Pt reported that he constantly has thoughts of killing people. He does not know where he can live. He is homeless, does not eat and not wearing shoes. Pt has history of Schizophrenia; Bipolar; Anxiety; & Antisocial. Interventions : Maintained a safe and supportive environment, provided clear and simple instructions, attempted to orient to reality, monitored behaviors and need for intervention, and maintained Q 15min safety checks. Response : Received pt. sleeping in bed at the beginning of the shift, he awoke to attend breakfast in the Group Room and afterwards retreated back to bed. Pt. was compliant with his mediations and appropriately greeted this mortgage underwriter, however did not present with an elevated mood or exhibit intermittent euphoric laughter as he had done the day before. Pt. was also not observed to be making any delusional statements or telephone calls this shift as he had done the previous shift. He again requested PRN Ativan for anxiety at approximately 1100, and medication was administered with effectiveness. Pt. was observed to be working out in his room at intervals and interacts intermittently with others, but is withdrawn. He did not exhibit any agitated outbursts or increased episodes of irritability r/t his delusional thoughts. Plan : Pt. continues to require a safe and supportive environment and is awaiting placement. Addendum: 12/13/22 at 1702 by Danelle Figueroa RN Pt. was observed to be pacing wearing headphones, he reported anxiety and requested PRN Ativan. Medication was administered and will continue to monitor pt. closely.
[2022-12-13 19:56] VITALS: BP 117/55; PULSE 76; RESP 18; TEMP 97.6; O2SAT 97
[2022-12-13] MEDS: OLANZAPINE 5 MG TABLET PO SCH (20:45)
[2022-12-13] MEDS: QUEtiapine 25mg tablet PO SCH (20:45)
[2022-12-13] MEDS: quetiapine 100mg tablet PO SCH (20:45)
--- NOTE | 2022-12-14 05:47 | NUR ---
Nursing Progress Note: Problem: Pt admitted on 5150 for DTO from our ER. Pt reported that he constantly has thoughts of killing people. He does not know where he can live. He is homeless, does not eat and not wearing shoes. Pt has history of Schizophrenia, bipolar,anxiety,antisocial. Interventions: 1:1 assessment, therapeutic communication, active listening, medication administration/education/monitoring, behavior monitoring and intervention as needed; provided distraction, redirection, limit setting, positive reinforcement, and Q15 minute safety checks. Response: Patient is pleasant and cooperative with care; compliant with medication. PRN Ativan and Nicotine lozenge provided. He denies SI, HI, A/VH; no apparent delusions expressed this shift. Patient participated in HS snack, briefly social with peers and listening to headphones prior to bed; observed sleeping and does not appear to be having difficulty. Plan: Pt is conserved and awaiting placement.
[2022-12-14 07:00] VITALS: BP 108/36; PULSE 59; RESP 14; TEMP 98; O2SAT 99
[2022-12-14] MEDS: multivitamins, therapeutics tablet PO SCH (08:20)
[2022-12-14] MEDS: OLANZapine 5mg rapidly disint. tablet PO SCH (08:20)
[2022-12-14] MEDS: docusate sod 100mg capsule PO SCH ×2 (08:20→19:58)
[2022-12-14] MEDS: busPIRone 5mg tablet PO SCH ×3 (08:20→19:58)
[2022-12-14] MEDS: LORazepam 1 MG tablet PO PRN ×2 (08:21→12:27)
--- NOTE | 2022-12-14 09:40 | NUR ---
RN page: "pt had few low diastolic bps; is there any way to add electrolytes to his diet. Pt works out in room and paces unit often." HENRY TC to RN recommends CMP if MD agreeable prior to adding electrolytes to meals as pt last CMP in September and pt current medications can cause fluctuations in thirst as well as electrolytes. Addendum: 12/14/22 at [address] Amended: Links added.
[2022-12-14 11:34] VITALS: BP 128/80
[2022-12-14 13:14] LABS: ALANINE AMINOTRANSFERASE 17 U/L (12-78); ALBUMIN 4.1 G/DL (3.4-5.0); ALBUMIN/GLOBULIN RATIO 1.4 (1.1-1.5); ALKALINE PHOSPHATASE 105 IU/L (46-116); ANION GAP 6 (8-16); ASPARTATE AMINO TRANSFERASE 17 U/L (10-37); BILIRUBIN,TOTAL 0.3 MG/DL (0.1-1.0); BLOOD UREA NITROGEN 11 MG/DL (7-18); BUN/CREATININE RATIO 13.1 (5.4-32.0); CALCIUM 8.6 MG/DL (8.5-10.1); CHLORIDE 105 MMOL/L (99-107); CREATININE 0.84 MG/DL (0.60-1.10); GLUCOSE 104 MG/DL (70-104); POTASSIUM 4.3 MMOL/L (3.5-5.1); SODIUM 140 MMOL/L (135-145); TOTAL CARBON DIOXIDE 29.4 MMOL/L (24-32); TOTAL PROTEIN 7.1 G/DL (6.4-8.2); eGFR > 90 ML/MIN
--- NOTE | 2022-12-14 15:24 | NUR ---
Nursing Progress Note: Problem: Pt admitted on 5150 for DTO from our ER. Pt reported that he constantly has thoughts of killing people. He does not know where he can live. He is homeless, does not eat and not wearing shoes. Pt has history of Schizophrenia, bipolar,anxiety,antisocial. Interventions: 1:1 assessment, therapeutic communication, active listening, medication administration/education/monitoring, behavior monitoring and intervention as needed; provided distraction, redirection, limit setting, positive reinforcement, and Q15 minute safety checks. Response: Patient is pleasant and cooperative with care; compliant with medication. PRNs Ativan and Nicotine lozenges provided. Patient had low diastolic BP this shift; patient was encourage to hydrate and CMP completed this shift. He denied any Sx of fatigue or dizziness; little later into shift BP WNL. Patient denies SI, HI, A/VH; no apprent delusions expressed this shift. He participated in meals and snacks. Plan: Pt is conserved and awaiting placement.
[2022-12-14 19:00] VITALS: BP 133/74; PULSE 70; RESP 18; TEMP 97.7; O2SAT 98
[2022-12-14] MEDS: QUEtiapine 25mg tablet PO SCH (19:58)
[2022-12-14] MEDS: quetiapine 100mg tablet PO SCH (19:58)
[2022-12-14] MEDS: OLANZAPINE 5 MG TABLET PO SCH (19:59)
--- NOTE | 2022-12-15 02:03 | NUR ---
Nursing Progress Note: Problem: Pt admitted on 5150 for DTO from our ER. Pt reported that he constantly has thoughts of killing people. He does not know where he can live. He is homeless, does not eat and not wearing shoes. Pt has history of Schizophrenia, bipolar,anxiety,antisocial. Interventions: 1:1 assessment, therapeutic communication, active listening, medication administration/education/monitoring, behavior monitoring and intervention as needed; provided distraction, redirection, limit setting, positive reinforcement, and Q15 minute safety checks. Response: Pt in room listening to headphones at the start of the shift. I introduced myself as his nurse and he had no immediate needs at the time. Pt did come out of his room briefly to help clean tables in the dining area, was seen socializing with select peers and attended HS snack. During 1:1 he denied S/I, H/I, A/H, or V/H and he did not appear to be responding to internal stimuli, and no delusional statements were made. He denied side effects to meds. Took his evening meds an went to bed. Plan: Pt is conserved and awaiting placement.
[2022-12-15 07:00] VITALS: RESP 16; O2SAT 98
[2022-12-15] MEDS: busPIRone 5mg tablet PO SCH ×2 (07:48→13:26)
[2022-12-15] MEDS: multivitamins, therapeutics tablet PO SCH (07:49)
[2022-12-15] MEDS: OLANZapine 5mg rapidly disint. tablet PO SCH (07:49)
[2022-12-15] MEDS: docusate sod 100mg capsule PO SCH ×2 (07:49→19:18)
[2022-12-15 07:56] VITALS: BP 104/58; PULSE 60; RESP 16; TEMP 98.6; O2SAT 98
[2022-12-15] MEDS: LORazepam 1 MG tablet PO PRN ×2 (11:17→19:17)
[2022-12-15] MEDS: NICOTINE POLACRILEX 2 MG LOZENGE BC PRN ×2 (11:17→16:19)
--- NOTE | 2022-12-15 16:23 | NUR ---
Nursing Progress Note: Chan Problem: Pt admitted on 5150 for DTO from our ER. Pt reported that he constantly has thoughts of killing people. He does not know where he can live. He is homeless, does not eat and not wearing shoes. Pt has history of Schizophrenia, bipolar, anxiety, antisocial. Interventions: Medication administration, 1:1 MH assessment, maintained a safe and supportive environment, provided clear and simple instructions, provided encouragement regarding performance of ADLs, monitored behaviors and maintained clear boundaries, maintained Q15 minute safety checks. Response: Pt. received asleep and awoke to eat breakfast. He denies SI, HI, VH, but endorses AH stating yes and no, there is always this voice chiming in or gesturing, but not physically, but it has something to say about everything Pt. denies these are CAH and reports both negative and positive things are said. He took his medications without hesitation and also requested PRN Ativan and nicotine lozenges X2 this shift. He reports he needs the PRN d/t suffering from anxiety. He is pleasant and had one episode of inappropriate conversations re gangs etc, and was asked to change the subject which he did. Pt. took a nap for about an hour and spent time walking around the unit listening to headphones. Pt. was observed tiding his room and requested clean sheets, changing his bedding without prompts. Pt. continues to presents as guarded but interacted appropriately on the unit also observed assisting an elderly female on the unit picker her belongings which dropped on the floor. He has good hygiene, well groomed, and wears street clothes. Plan: Crisis interruption and stabilization in a safe and therapeutic environment, the [facility] plans to conserve him.
[2022-12-15] MEDS: busPIRone 15mg tablet PO SCH (19:18)
[2022-12-15] MEDS: OLANZAPINE 5 MG TABLET PO SCH (19:18)
[2022-12-15] MEDS: quetiapine 100mg tablet PO SCH (19:18)
[2022-12-15] MEDS: QUEtiapine 25mg tablet PO SCH (19:18)
[2022-12-15 19:32] VITALS: BP 131/65; PULSE 79; RESP 14; RESP 18; TEMP 97.7; O2SAT 97
--- NOTE | 2022-12-16 06:04 | NUR ---
Nursing Progress Note: Problem: Pt admitted on 5150 for DTO from our ER. Pt reported that he constantly has thoughts of killing people. He does not know where he can live. He is homeless, does not eat and not wearing shoes. Pt has history of Schizophrenia, bipolar,anxiety,antisocial. Interventions: 1:1 assessment, therapeutic communication, active listening, medication administration/education/monitoring, behavior monitoring and intervention as needed; provided distraction, redirection, limit setting, positive reinforcement, and Q15 minute safety checks. Response: Patient is pleasant and cooperative with care; compliant with medication. He appeared to be elevated this shift and responding to IS. Patient overheard talking about killing people in [facility] and reporting conspiracies about the [facility]. PRN Ativan provided. Patient participated in HS snack, social with peers and paced the unit prior to bed; observed sleeping and does not appear to be having difficulty. Plan: Pt is conserved and awaiting placement.
[2022-12-16 07:00] VITALS: RESP 16; O2SAT 98
[2022-12-16] MEDS: busPIRone 15mg tablet PO SCH ×3 (07:25→20:46)
[2022-12-16] MEDS: LORazepam 1 MG tablet PO PRN ×3 (07:25→20:47)
[2022-12-16] MEDS: docusate sod 100mg capsule PO SCH ×2 (07:25→20:46)
[2022-12-16] MEDS: multivitamins, therapeutics tablet PO SCH (07:25)
[2022-12-16] MEDS: NICOTINE POLACRILEX 2 MG LOZENGE BC PRN ×4 (07:25→18:41)
[2022-12-16] MEDS: OLANZapine 5mg rapidly disint. tablet PO SCH (07:27)
[2022-12-16 08:05] VITALS: BP 120/67; PULSE 62; RESP 16; TEMP 98.6; O2SAT 98
--- NOTE | 2022-12-16 16:58 | NUR ---
Nursing Progress Note: Chan Problem: Pt admitted on 5150 for DTO from our ER. Pt reported that he constantly has thoughts of killing people. He does not know where he can live. He is homeless, does not eat and not wearing shoes. Pt has history of Schizophrenia, bipolar, anxiety, antisocial. Interventions: Medication administration, 1:1 MH assessment, maintained a safe and supportive environment, provided clear and simple instructions, provided encouragement regarding performance of ADLs, monitored behaviors and maintained clear boundaries, maintained Q15 minute safety checks. Response: Pt. received asleep and awoke to take his medications. Pt. requested Ativan and a nicotine lozenge c/o anxiety and restlessness; PRNs given. He denies SI, HI, AH, but endorses VH stating Iv been seeing eyes on the wall, almost like a kaleidoscope of eyes, I sometimes see a man standing in a hole on the wall with the bricks falling down around him Pt. is articulates and cooperative when redirected as he has required redirection d/t conversations about fpc, drugs, and intense feelings, but has poor insight as the issue reoccurs in a short time. He was offered a PRN as his voice was louder and discussions were more intense; he accepted, and PRN Ativan and nicotine lozenge taken. Pt. spent most of the shift walking around the unit socializing with cohorts or listening to headphones, ate all meals in the community room with cohorts. He has good hygiene, well groomed, and wears street clothes. Plan: Crisis interruption and stabilization in a safe and therapeutic environment, [facility].
[2022-12-16] MEDS: quetiapine 100mg tablet PO PRN (18:44)
[2022-12-16 19:37] VITALS: BP 124/60; PULSE 78; RESP 16; TEMP 98.1; O2SAT 99
[2022-12-16] MEDS: OLANZAPINE 5 MG TABLET PO SCH (20:46)
[2022-12-16] MEDS: QUEtiapine 25mg tablet PO SCH (20:46)
[2022-12-16] MEDS: quetiapine 100mg tablet PO SCH (20:46)
--- NOTE | 2022-12-17 05:23 | NUR ---
Nursing Progress Note: Problem: Pt admitted on 5150 for DTO from our ER. Pt reported that he constantly has thoughts of killing people. He does not know where he can live. He is homeless, does not eat and not wearing shoes. Pt has history of Schizophrenia, bipolar,anxiety,antisocial. Interventions: 1:1 assessment, therapeutic communication, active listening, medication administration/education/monitoring, behavior monitoring and intervention as needed; provided distraction, redirection, limit setting, positive reinforcement, and Q15 minute safety checks. Response: Patient is pleasant and cooperative with care; compliant with medication. PRNs Quetiapine, Ativan and Nicotine lozenge provided. He continues to deny MH Sx but observed responding to IS. Patient observed briefly socializing with peer, walking the unit and participated in HS snack prior to bed; observed sleeping and does not appear to be having difficulty. Plan: Pt is conserved and awaiting placement.
[2022-12-17 07:00] VITALS: BP 101/41; PULSE 62; RESP 16; TEMP 98.5; O2SAT 98
[2022-12-17] MEDS: docusate sod 100mg capsule PO SCH ×2 (08:06→20:33)
[2022-12-17] MEDS: OLANZapine 5mg rapidly disint. tablet PO SCH (08:06)
[2022-12-17] MEDS: busPIRone 15mg tablet PO SCH ×3 (08:06→20:33)
[2022-12-17] MEDS: multivitamins, therapeutics tablet PO SCH (08:07)
[2022-12-17] MEDS: NICOTINE POLACRILEX 2 MG LOZENGE BC PRN ×3 (12:55→19:33)
[2022-12-17] MEDS: LORazepam 1 MG tablet PO PRN ×2 (12:55→20:36)
--- NOTE | 2022-12-17 15:55 | NUR ---
Therapeutic group Description: The therapeutic group program supports the Center's purpose of interrupting current crisis through encouraging peer and staff interaction, discouraging isolation, and skill building. Intervention Daily therapeutic group. Topic: self-concept, self-nurturing Response Client participated fully in the group, with attention. Client stated positive self-image/affirmations are "my best thing". This travel writer then asked client to start of the group, which client did with enthusiasm. Client stated that every human is amazing, our brains are amazing, client mentioned the inventions of Costa Ferguson, effecting change like Navneet Sanchez, Efrain Jordan, Will Davila. Client made some grandiose statements: "I'm famous just by being me." was easily re-direct to be back on topic, namely that client has a very solid set of core beliefs that he is worthy. Treatment plan Continue clinical course of care and crisis intervention, including therapeutic groups.
--- NOTE | 2022-12-17 17:57 | NUR ---
Nursing Progress Note: Problem: Pt admitted on 5150 for DTO from our ER. Pt reported that he constantly has thoughts of killing people. He does not know where he can live. He is homeless, does not eat and not wearing shoes. Pt has history of Schizophrenia, bipolar, anxiety, antisocial. Interventions: Medication administration, 1:1 MH assessment, maintained a safe and supportive environment, provided clear and simple instructions, provided encouragement regarding performance of ADLs, monitored behaviors and maintained clear boundaries, maintained Q15 minute safety checks. Response: Received patient sleeping in bed at change of shift. Patient awakens and joins peers in the dining room for breakfast. Patient walks the hallways with his headphones on and retreats to his room to isolate. Patient takes all medications as directed. Patient requested Ativan and Nicotine lozenges. During afternoon snack, patient was talking to a male peer in the group room, and was talking about women in a vile manner, patient accepted redirection and went back to his room. Patient denies all psychotic symptoms today. Plan: Crisis interruption and stabilization in a safe and therapeutic environment. Patient is conserved and is awaiting placement.
[2022-12-17] MEDS ORDERED: loperamide 2mg capsule PO PRN (19:20)
[2022-12-17] MEDS ORDERED: acetaminophen 325mg tablet PO PRN (19:20)
[2022-12-17] MEDS: quetiapine 100mg tablet PO PRN (19:33)
[2022-12-17] MEDS: magnesium hydroxide 30ml (MOM) UD suspension PO PRN (19:33)
[2022-12-17 19:36] VITALS: BP 135/61; PULSE 90; RESP 18; TEMP 97.7; O2SAT 99
[2022-12-17] MEDS: QUEtiapine 25mg tablet PO SCH (20:33)
[2022-12-17] MEDS: OLANZAPINE 5 MG TABLET PO SCH (20:33)
[2022-12-17] MEDS: quetiapine 100mg tablet PO SCH (20:33)
--- NOTE | 2022-12-18 05:37 | NUR ---
Nursing Progress Note: Problem: Pt admitted on 5150 for DTO from our ER. Pt reported that he constantly has thoughts of killing people. He does not know where he can live. He is homeless, does not eat and not wearing shoes. Pt has history of Schizophrenia, bipolar,anxiety,antisocial. Interventions: 1:1 assessment, therapeutic communication, active listening, medication administration/education/monitoring, behavior monitoring and intervention as needed; provided distraction, redirection, limit setting, positive reinforcement, and Q15 minute safety checks. Response: Patient is pleasant and cooperative with care; compliant with medication. PRNs Quetiapine and Ativan provided. Patient denies SI, HI, A/VH; appears to be responding to IS at times. Patient was social with peers, walked the unit and participated in HS snack prior to bed; observed sleeping and does not appear to be having difficulty. Plan: Pt is conserved and awaiting placement.
[2022-12-18 07:00] VITALS: RESP 16; O2SAT 98
[2022-12-18] MEDS: OLANZapine 5mg rapidly disint. tablet PO SCH (07:19)
[2022-12-18] MEDS: busPIRone 15mg tablet PO SCH ×3 (07:19→20:59)
[2022-12-18] MEDS: docusate sod 100mg capsule PO SCH ×2 (07:19→20:58)
[2022-12-18] MEDS: multivitamins, therapeutics tablet PO SCH (07:19)
[2022-12-18 07:27] VITALS: BP 115/56; PULSE 98; RESP 16; TEMP 97.9; O2SAT 98
[2022-12-18] MEDS: NICOTINE POLACRILEX 2 MG LOZENGE BC PRN ×2 (12:17→16:55)
--- NOTE | 2022-12-18 15:01 | NUR ---
Nursing Progress Note: Problem: Pt admitted on 5150 for DTO from our ER. Pt reported that he constantly has thoughts of killing people. He does not know where he can live. He is homeless, does not eat and not wearing shoes. Pt has history of Schizophrenia, bipolar,anxiety,antisocial. Interventions: 1:1 assessment, therapeutic communication, active listening, medication administration/education/monitoring, behavior monitoring and intervention as needed; provided distraction, redirection, limit setting, positive reinforcement, and Q15 minute safety checks. Response: Pt was up before breakfast. Pt was cooperative with medications. Pt asks for PRN nicotine lozenges periodically. Pt denied SI/HI/AH/VH. Pt did not appear to be responding to internal stimuli. Pt socialized with peers. Pt was observed smiling and laughed boisterously at times. Obion pt state, "Dragon Ball Z is still the shit though!" Pt stated to a male peer, "you're my boy Blue." Pt is easily redirectable, no unsafe behaviors noted. Plan: Pt is conserved and awaiting placement.
--- NOTE | 2022-12-18 15:07 | NUR ---
Pt was observed pacing the unit with the radio headphones on loudly talking to himself. Pt did not appear to be singing or quoting the radio.
--- NOTE | 2022-12-18 15:45 | NUR ---
Pt appeared to be responding to internal stimuli. Pt stated to himself in his room, "you're faith I'm only responding to the voices that guide me."
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
[2022-12-18] MEDS: LORazepam 1 MG tablet PO PRN (17:48)
[2022-12-18 19:00] VITALS: BP 141/72; PULSE 62; RESP 18; TEMP 97.7; O2SAT 97
[2022-12-18] MEDS: quetiapine 100mg tablet PO SCH (20:58)
[2022-12-18] MEDS: QUEtiapine 25mg tablet PO SCH (20:58)
[2022-12-18] MEDS: OLANZAPINE 5 MG TABLET PO SCH (20:59)
--- NOTE | 2022-12-19 05:26 | NUR ---
Nursing Progress Note: Problem: Pt admitted on 5150 for DTO from our ER. Pt reported that he constantly has thoughts of killing people. He does not know where he can live. He is homeless, does not eat and not wearing shoes. Pt has history of Schizophrenia, bipolar,anxiety,antisocial. Interventions: 1:1 assessment, therapeutic communication, active listening, medication administration/education/monitoring, behavior monitoring and intervention as needed; provided distraction, redirection, limit setting, positive reinforcement, and Q15 minute safety checks. Response: Patient is pleasant and cooperative with care; compliant with medication. Continues to deny MH Sx; did not appear to be responding to IS this shift and no apparent delusions overheard. Patient mostly self isolated to his room this shift; briefly participated in HS snack prior to bed. He was observed sleeping with no apparent difficulties; woke up early this AM. Plan: Pt is conserved and awaiting placement.
[2022-12-19 07:00] VITALS: RESP 16; O2SAT 98
[2022-12-19] MEDS: multivitamins, therapeutics tablet PO SCH (07:22)
[2022-12-19] MEDS: OLANZapine 5mg rapidly disint. tablet PO SCH (07:22)
[2022-12-19] MEDS: docusate sod 100mg capsule PO SCH ×2 (07:22→20:56)
[2022-12-19] MEDS: busPIRone 15mg tablet PO SCH ×3 (07:22→20:58)
[2022-12-19 07:59] VITALS: BP 133/77; PULSE 76; RESP 16; TEMP 97.9; O2SAT 98
[2022-12-19] MEDS: NICOTINE POLACRILEX 2 MG LOZENGE BC PRN ×3 (08:28→19:04)
[2022-12-19] MEDS: LORazepam 1 MG tablet PO PRN ×2 (09:35→19:43)
--- NOTE | 2022-12-19 12:59 | NUR ---
PLACEMENT UPDATE Sent updated notes to [facility] office (12/12-12/18) Packet is at the following [facility]: [facility], [facility], [place], [facility], and [facility]. He has been declined at [facility]. MARIA LUISA Villeda
--- NOTE | 2022-12-19 15:02 | NUR ---
Nursing Progress Note: Problem: Pt admitted on 5150 for DTO from our ER. Pt reported that he constantly has thoughts of killing people. He does not know where he can live. He is homeless, does not eat and not wearing shoes. Pt has history of Schizophrenia, bipolar,anxiety,antisocial. Interventions: 1:1 assessment, therapeutic communication, active listening, medication administration/education/monitoring, behavior monitoring and intervention as needed; provided distraction, redirection, limit setting, positive reinforcement, and Q15 minute safety checks. Response: Pt was up before breakfast pacing the hallway listening to the radio headphones. Pt was pleasant and cooperative with medications. Pt requested nicotine lozenges at 0828 & 1438. He requested PRN Ativan 2 mg for c/o increased anxiety at 0935 with good effect. Pt socializes with peers. He is really into exercising/working out and encourages his peers to do so as well. Pt paces, does push ups, squats, lunges, and stretches. No verbal or physical outbursts, no overtly delusional statements so far this shift. Plan: Pt is conserved and awaiting placement.
[2022-12-19 19:00] VITALS: BP 136/68; PULSE 68; RESP 16; TEMP 98.3; O2SAT 100
[2022-12-19] MEDS: quetiapine 100mg tablet PO PRN (19:04)
[2022-12-19] MEDS: OLANZAPINE 5 MG TABLET PO SCH (20:56)
[2022-12-19] MEDS: quetiapine 100mg tablet PO SCH (20:57)
[2022-12-19] MEDS: QUEtiapine 25mg tablet PO SCH (20:58)
--- NOTE | 2022-12-20 02:47 | NUR ---
Nursing Progress Note: Problem: Pt admitted on 5150 for DTO from our ER. Pt reported that he constantly has thoughts of killing people. He does not know where he can live. He is homeless, does not eat and not wearing shoes. Pt has history of Schizophrenia, bipolar,anxiety,antisocial. Interventions: 1:1 assessment, therapeutic communication, active listening, medication administration/education/monitoring, behavior monitoring and intervention as needed; provided distraction, redirection, limit setting, positive reinforcement, and Q15 minute safety checks. Response: received pt awake and walking the lion at shift change. He is observed wearing headphones while pacing. Continues making delusional statements and being hyperverbal. He is overheard saying " hate crime, sex crime" and talking about [employer] ([place] and the Government. When asked about his mood patient aggressively states "I'm pissed off". He then request PRN Ativan and nicotine lozenge. Pt. agreed to take PRN Seroquel . PRN Seroquel and nicotine lozenge provided. Participated in snack. Compliant with bedtime medications. Denies SI. When asked about harming others pt states " i feel homicidal all the time" and "he see's happy images". Pt. appeared agitated. PRN Ativan provided w/effectiveness. Patient in room, lying in bed, door cracked and appears to be sleeping. Patient would like to speak with about increasing his Seroquel and buspar. Plan: Pt is conserved and awaiting placement.
[2022-12-20 07:00] VITALS: RESP 12; O2SAT 98
[2022-12-20 07:36] VITALS: BP 106/49; PULSE 61; RESP 12; TEMP 97.3; O2SAT 98
[2022-12-20] MEDS: busPIRone 15mg tablet PO SCH ×3 (07:36→20:28)
[2022-12-20] MEDS: OLANZapine 5mg rapidly disint. tablet PO SCH (07:36)
[2022-12-20] MEDS: multivitamins, therapeutics tablet PO SCH (07:36)
[2022-12-20] MEDS: docusate sod 100mg capsule PO SCH ×2 (07:36→20:28)
[2022-12-20] MEDS: LORazepam 1 MG tablet PO PRN ×2 (08:36→20:28)
[2022-12-20] MEDS: NICOTINE POLACRILEX 2 MG LOZENGE BC PRN ×3 (08:36→17:48)
--- NOTE | 2022-12-20 10:27 | NUR ---
Reassessment: Pt now on a regular diet with double protein TID, documented with 100% PO intake meeting estimated nutrient needs. [facility] 12/17, receiving routine and PRN bowel care. No nutrition intervention implemented at this time. Will continue to follow. Recommendations: 1. Continue regular diet; double eggs WB, double meat BIDLD 2. Routine bowel care 3. Weekly scaled wts Addendum: 12/20/22 at [address] Muñoz RD Amended: Links added.
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
[2022-12-20 19:00] VITALS: RESP 18; O2SAT 99
[2022-12-20 20:00] VITALS: BP 134/86; PULSE 75; RESP 18; TEMP 98; O2SAT 99
[2022-12-20] MEDS: OLANZAPINE 5 MG TABLET PO SCH (20:27)
[2022-12-20] MEDS: quetiapine 100mg tablet PO SCH (20:27)
[2022-12-20] MEDS: QUEtiapine 25mg tablet PO SCH (20:27)
--- NOTE | 2022-12-20 23:52 | NUR ---
Nursing Progress Note: Problem: Pt admitted on 5150 for DTO from our ER. Pt reported that he constantly has thoughts of killing people. He does not know where he can live. He is homeless, does not eat and not wearing shoes. Pt has history of Schizophrenia, bipolar,anxiety,antisocial. Interventions: 1:1 assessment, therapeutic communication, active listening, medication administration/education/monitoring, behavior monitoring and intervention as needed; provided distraction, redirection, reality orientation, limit setting, positive reinforcement, and Q15 minute safety checks. Response: Patient up and pacing in hallway with peers at shift change. Patient talks often to peers and is seen laughing and talking to staff appropriately. Pt 1:1, pt reports hearing voices , "but not all of the voices are bad." Patient denies SI HI. Patient states that he had a really good day today and has been happy. Patient ate snack with cohorts in community room. patient took evening meds w/o complications. Patient asked for Ativan at bedtime. Ativan given with good effect. patient paced hallway for a short while before going to bed. Plan: Pt is conserved and awaiting placement.
[2022-12-21 08:00] VITALS: BP 113/53; PULSE 73; RESP 15; TEMP 97.8; O2SAT 99
[2022-12-21] MEDS: OLANZapine 5mg rapidly disint. tablet PO SCH (08:15)
[2022-12-21] MEDS: QUEtiapine 25mg tablet PO SCH ×3 (08:15→19:59)
[2022-12-21] MEDS: busPIRone 15mg tablet PO SCH ×3 (08:15→19:59)
[2022-12-21] MEDS: multivitamins, therapeutics tablet PO SCH (08:15)
[2022-12-21] MEDS: docusate sod 100mg capsule PO SCH ×2 (08:15→20:00)
[2022-12-21] MEDS: LORazepam 1 MG tablet PO PRN ×2 (08:57→20:03)
[2022-12-21] MEDS: NICOTINE POLACRILEX 2 MG LOZENGE BC PRN ×2 (15:16→19:10)
--- NOTE | 2022-12-21 16:43 | NUR ---
Nursing Progress Note: Problem: Pt admitted on 5150 for DTO from our ER. Pt reported that he constantly has thoughts of killing people. He does not know where he can live. He is homeless, does not eat and not wearing shoes. Pt has history of Schizophrenia, bipolar, anxiety & anti-social. Interventions: Interventions: Provide medication administration & medication management; Maintained a safe & supportive environment; Clear & simple instructions; Direction & encouragement regarding performance of ADLs; monitored behaviors & maintained clear boundaries; Patient physical assessment & 1:1 patient interview; Therapeutic conversation & active listening; Patient education & monitoring. Response: Received patient who was still sleeping in his room until 0730. Patient woke up and stated Its going to be a good day. Patient was wearing a headset and a 1:1 interview and Patient Assessment was completed. Patient was asked if he is hearing voices and he reported Yes, my voices guide me through life. Thats good intuition, huh? Patient then went on to report he has Grandiose delusions all of the time. Patient denies SI/VH. Patient informed he was feeling very anxious at 0900 and received Ativan 2mg po with relief from anxiety. Patient continued to listen to the headphones until he fell asleep and was woke up at 1305 for lunch and to take his timed medications. Patient has been interacting with peers on the unit, and ambulates up and down the lion as needed for exercise. Patient participated in meal times and afternoon snack time today. Patient reports that he had a BM today 12/21/22. Plan: Pt is conserved and awaiting placement.
[2022-12-21] MEDS: quetiapine 100mg tablet PO PRN (19:10)
[2022-12-21 19:30] VITALS: BP 127/79; PULSE 84; RESP 20; TEMP 98.1; O2SAT 99
[2022-12-21] MEDS: quetiapine 100mg tablet PO SCH (20:00)
[2022-12-21] MEDS: OLANZAPINE 5 MG TABLET PO SCH (20:00)
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
[2022-12-22 07:48] VITALS: BP 128/50; PULSE 75; RESP 16; TEMP 97.7; O2SAT 98
[2022-12-22] MEDS: busPIRone 15mg tablet PO SCH ×3 (08:08→20:04)
[2022-12-22] MEDS: QUEtiapine 25mg tablet PO SCH ×3 (08:08→20:05)
[2022-12-22] MEDS: OLANZapine 5mg rapidly disint. tablet PO SCH (08:08)
[2022-12-22] MEDS: multivitamins, therapeutics tablet PO SCH (08:08)
[2022-12-22] MEDS: docusate sod 100mg capsule PO SCH ×2 (08:09→20:04)
[2022-12-22] MEDS: NICOTINE POLACRILEX 2 MG LOZENGE BC PRN ×4 (08:48→19:16)
[2022-12-22] MEDS: LORazepam 1 MG tablet PO PRN ×2 (08:49→20:04)
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
[2022-12-22] MEDS: quetiapine 100mg tablet PO PRN (17:16)
[2022-12-22 19:04] VITALS: BP 141/78; PULSE 90; RESP 16; TEMP 97.8; O2SAT 98
[2022-12-22] MEDS: OLANZAPINE 5 MG TABLET PO SCH (20:05)
[2022-12-22] MEDS: quetiapine 100mg tablet PO SCH (20:05)
[2022-12-22] MEDS ORDERED: quetiapine 100mg tablet PO ONE (21:45)
--- NOTE | 2022-12-23 05:08 | NUR ---
Nursing Progress Note: Problem: Pt admitted on 5150 for DTO from our ER. Pt reported that he constantly has thoughts of killing people. He does not know where he can live. He is homeless, does not eat and not wearing shoes. Pt has history of Schizophrenia, bipolar,anxiety,antisocial. Interventions: 1:1 assessment, therapeutic communication, active listening, medication administration/education/monitoring, behavior monitoring and intervention as needed; provided distraction, redirection, reality orientation, limit setting, positive reinforcement, and Q15 minute safety checks. Response: Patient is pleasant and cooperative with care; compliant with medication. PRNs Quetiapine, Ativan and Nicotine lozenges provided. Patient appears to be responding to IS and restless at times. Social with his roommate and participated in HS snack. Patient c/o difficulty getting to sleep this shift; CANDELARIO Rodriguez notified and Quetiapine 200mg once ordered. Patient appears to be sleeping without difficulty. Plan: Pt is conserved and awaiting placement.
[2022-12-23 08:00] VITALS: BP 113/42; PULSE 66; RESP 12; TEMP 98.1; O2SAT 99
[2022-12-23] MEDS: busPIRone 15mg tablet PO SCH ×3 (08:02→20:17)
[2022-12-23] MEDS: docusate sod 100mg capsule PO SCH ×2 (08:02→20:17)
[2022-12-23] MEDS: QUEtiapine 25mg tablet PO SCH ×3 (08:02→20:17)
[2022-12-23] MEDS: OLANZapine 5mg rapidly disint. tablet PO SCH (08:03)
[2022-12-23] MEDS: multivitamins, therapeutics tablet PO SCH (08:03)
[2022-12-23] MEDS: NICOTINE POLACRILEX 2 MG LOZENGE BC PRN ×2 (10:10→16:51)
[2022-12-23] MEDS: LORazepam 1 MG tablet PO PRN ×2 (10:10→20:19)
--- NOTE | 2022-12-23 16:11 | NUR ---
Nursing Progress Note: Problem: Pt admitted on 5150 for DTO from our ER. Pt reported that he constantly has thoughts of killing people. He does not know where he can live. He is homeless, does not eat and not wearing shoes. Pt has history of Schizophrenia, bipolar, anxiety & anti-social. Interventions: Provide medication administration & medication management; Maintained a safe & supportive environment; Clear & simple instructions; Direction & encouragement regarding performance of ADLs; monitored behaviors & maintained clear boundaries; Patient physical assessment & 1:1 patient interview; Therapeutic conversation & active listening; Patient education & monitoring. Response: Patient slept until 0800 and was summoned to breakfast in the Community Room. Patient ate a few bites of breakfast then ambulated in the hallway talking to peers and having positive communication with them. At approximately 1010, the patient requested Ativan and a Nicotine Lozenge then participated in snack time at 1100. Patient ate lunch and took his 1300 medications then went to bed and fell asleep quickly. Patient slept until snack time then was up and ambulating for the rest of the day. Patient wore headphones most of the day as he said It helps me drown out my internal voices speaking to me. Plan: Pt is conserved and awaiting placement.
[2022-12-23 19:12] VITALS: RESP 12; O2SAT 99
[2022-12-23 19:41] VITALS: BP 122/75; PULSE 88; RESP 16; TEMP 97.9; O2SAT 98
[2022-12-23] MEDS: OLANZAPINE 5 MG TABLET PO SCH (20:17)
[2022-12-23] MEDS: quetiapine 100mg tablet PO SCH (20:17)
[2022-12-23] MEDS: quetiapine 100mg tablet PO PRN (21:04)
--- NOTE | 2022-12-24 00:28 | NUR ---
Nursing Progress Note: Problem: Pt admitted on 5150 for DTO from our ER. Pt reported that he constantly has thoughts of killing people. He does not know where he can live. He is homeless, does not eat and not wearing shoes. Pt has history of Schizophrenia, bipolar, anxiety & anti-social. Interventions: Provide medication administration & medication management; Maintained a safe & supportive environment; Clear & simple instructions; Direction & encouragement regarding performance of ADLs; monitored behaviors & maintained clear boundaries; Patient physical assessment & 1:1 patient interview; Therapeutic conversation & active listening; Patient education & monitoring. Response: Pt was ambulating in the lion with another patient at change of shift. Pt appeared to be having a pleasant conversation and was overheard talking about "unicorns" and both patients were laughing. Pt is cooperative with staff, states he is doing good. Pt reports he is hearing voices but denies h/i stating "If I go to residential, I would start a fight and get shot, because I dont want to be there!" Pt had snacks is smiling, cooperative and pleasant with staff but appears to be anxious. Pt was given prn ativan with HS meds and spent time making phone calls. Pt requested seroquel prn before going to bed. Plan: Pt is conserved and awaiting placement.
[2022-12-24 07:15] VITALS: RESP 12; O2SAT 98
[2022-12-24 07:25] VITALS: BP 126/86; PULSE 74; RESP 12; TEMP 97.4; O2SAT 98
[2022-12-24] MEDS: busPIRone 15mg tablet PO SCH ×3 (08:33→20:08)
[2022-12-24] MEDS: LORazepam 1 MG tablet PO PRN ×2 (08:34→20:06)
[2022-12-24] MEDS: multivitamins, therapeutics tablet PO SCH (08:34)
[2022-12-24] MEDS: QUEtiapine 25mg tablet PO SCH ×3 (08:34→20:08)
[2022-12-24] MEDS: docusate sod 100mg capsule PO SCH ×2 (08:34→20:08)
[2022-12-24] MEDS: OLANZapine 5mg rapidly disint. tablet PO SCH (08:34)
[2022-12-24] MEDS: NICOTINE POLACRILEX 2 MG LOZENGE BC PRN ×4 (08:34→21:01)
--- NOTE | 2022-12-24 17:26 | NUR ---
Nursing Progress Note: Problem: Pt admitted on 5150 for DTO from our ER. Pt reported that he constantly has thoughts of killing people. He does not know where he can live. He is homeless, does not eat and not wearing shoes. Pt has history of Schizophrenia, bipolar, anxiety, antisocial. Interventions: 1:1 assessment, therapeutic communication, active listening, ensured contract for safety, medication administration/education/monitoring, behavior monitoring and intervention as needed; provided distraction, redirection, positive reinforcement, and Q15 minute safety checks. Response: Pt was up before breakfast. Pt was cooperative and compliant with all medications. Pt expressed to this TAXICAB DISPATCHER during 1:1 SI/HI, -AV/H. Pt well-groomed with good hygiene wearing street clothes. PRN Ativan and Nicotine Lozenges. Pt socializes with select peers, pacing hallways wearing headphones. Does not appear to be responding to internal stimuli. Pt making phone calls. Pt is polite with staff. No inappropriate of unsafe behaviors noted today. Plan: Pt is conserved and awaiting placement.
[2022-12-24 19:00] VITALS: RESP 14; O2SAT 98
[2022-12-24] MEDS: quetiapine 100mg tablet PO PRN (19:20)
[2022-12-24] MEDS: OLANZAPINE 5 MG TABLET PO SCH (20:06)
[2022-12-24] MEDS: quetiapine 100mg tablet PO SCH (20:07)
[2022-12-24 20:53] VITALS: BP 129/92; PULSE 91; RESP 14; TEMP 98; O2SAT 98
--- NOTE | 2022-12-25 04:33 | NUR ---
Nursing Progress Note: Problem: Pt admitted on 5150 for DTO from our ER. Pt reported that he constantly has thoughts of killing people. He does not know where he can live. He is homeless, does not eat and not wearing shoes. Pt has history of Schizophrenia, bipolar, anxiety, antisocial. Interventions: 1:1 assessment, therapeutic communication, active listening, ensured contract for safety, medication administration/education/monitoring, behavior monitoring and intervention as needed; provided distraction, redirection, positive reinforcement, and Q15 minute safety checks. Response: Patient was found pacing halls socializing with other patients at beginning of shift. Patient came to nurse asking for nicotine lozenge and prn Seroquel for anxiety. Patient returned to pacing after taking Meds. Patient came back shortly after asking for prn anxiety medications again. Patient was given prn Ativan with scheduled night medications. Patient was later observed hugging other patients and laughing with them in front of their doorway. Patient participated in snack and took night medications without issue. Patient took asked for 1 more nicotine lozenge before going back to room. Plan: Pt is conserved and awaiting placement.
[2022-12-25 07:00] VITALS: RESP 16; O2SAT 98
[2022-12-25 08:00] VITALS: BP 111/50; PULSE 80; RESP 16; TEMP 97.9; O2SAT 98
[2022-12-25] MEDS: docusate sod 100mg capsule PO SCH ×2 (08:07→20:29)
[2022-12-25] MEDS: OLANZapine 5mg rapidly disint. tablet PO SCH (08:07)
[2022-12-25] MEDS: busPIRone 15mg tablet PO SCH ×3 (08:08→20:29)
[2022-12-25] MEDS: multivitamins, therapeutics tablet PO SCH (08:08)
[2022-12-25] MEDS: QUEtiapine 25mg tablet PO SCH ×3 (08:08→20:28)
[2022-12-25] MEDS: magnesium hydroxide 30ml (MOM) UD suspension PO PRN (09:05)
--- NOTE | 2022-12-25 13:05 | NUR ---
PLACEMENT UPDATE Chan's packet is in queue at [facility], [facility], [facility], [facility], [facility], and [facility]. Client has been declined at [facility]. MARIA LUISA Villeda
[2022-12-25] MEDS: NICOTINE POLACRILEX 2 MG LOZENGE BC PRN ×2 (13:26→16:48)
[2022-12-25] MEDS: quetiapine 100mg tablet PO PRN (16:48)
--- NOTE | 2022-12-25 17:16 | NUR ---
Nursing Progress Note: Problem: Pt admitted on 5150 for DTO from our ER. Pt reported that he constantly has thoughts of killing people. He does not know where he can live. He is homeless, does not eat and not wearing shoes. Pt has history of Schizophrenia, bipolar, anxiety, antisocial. Interventions: 1:1 assessment, therapeutic communication, active listening, ensured contract for safety, medication administration/education/monitoring, behavior monitoring and intervention as needed; provided distraction, redirection, positive reinforcement, and Q15 minute safety checks. Response: Nurse receive pt. awake at change of shift, walking the unit, utilizing the facility headphones. Medications administered and 1:1 done at bedside. Pt denies SI. When asked if he is having HI, he stated all of the time, not currently at the moment, but I dont think its normal if you dont have those thoughts. When nurse asked if he would act on these thoughts, he said, no, I mean Shila been in tons of fights, Sihla hospitalized a lot of people. Pt endorses auditory and visual hallucinations, he states he is not bothered by them. Pt has been seen socializing with staff and peers this shift in the hallways. PRN Seroquel for anxiety and nicotine lozenge administered at 1650. Plan: Pt is conserved and awaiting placement.
[2022-12-25 19:00] VITALS: RESP 16; O2SAT 98
[2022-12-25] MEDS: LORazepam 1 MG tablet PO PRN (19:06)
[2022-12-25 19:52] VITALS: BP 139/89; PULSE 78; RESP 16; TEMP 98.3; O2SAT 98
[2022-12-25] MEDS: quetiapine 100mg tablet PO SCH (20:27)
[2022-12-25] MEDS: OLANZAPINE 5 MG TABLET PO SCH (20:28)
--- NOTE | 2022-12-26 04:34 | NUR ---
Nursing Progress Note: Problem: Pt admitted on 5150 for DTO from our ER. Pt reported that he constantly has thoughts of killing people. He does not know where he can live. He is homeless, does not eat and not wearing shoes. Pt has history of Schizophrenia, bipolar, anxiety, antisocial. Interventions: 1:1 assessment, therapeutic communication, active listening, ensured contract for safety, medication administration/education/monitoring, behavior monitoring and intervention as needed; provided distraction, redirection, positive reinforcement, and Q15 minute safety checks. Response: Patient was found pacing halls talking to other patients at beginning of shift. Patient was observed wearing headphones even when having a conversations with others. Patient stated that his voices are like a back seat tank truck driver always giving their unwanted comments. He uses the headphones to help drown them out so he can concentrate. Patient came to nurse asking for something for anxiety, patient was given prn Ativan 2mg x1. Patient continued to pace around unit laughing and joking with other patients. Patient took all night meds without issue and retuned to pacing. Patient was upset he cant have his anxiety medication more often. Plan: Pt is conserved and awaiting placement.
[2022-12-26 07:00] VITALS: RESP 18; O2SAT 98
[2022-12-26 08:00] VITALS: BP 109/50; PULSE 63; RESP 18; TEMP 97.4; O2SAT 98
[2022-12-26] MEDS: LORazepam 1 MG tablet PO PRN ×2 (08:05→20:29)
[2022-12-26] MEDS: multivitamins, therapeutics tablet PO SCH (08:05)
[2022-12-26] MEDS: NICOTINE POLACRILEX 2 MG LOZENGE BC PRN ×2 (08:05→14:42)
[2022-12-26] MEDS: busPIRone 15mg tablet PO SCH ×3 (08:05→20:30)
[2022-12-26] MEDS: docusate sod 100mg capsule PO SCH ×2 (08:05→20:30)
[2022-12-26] MEDS: QUEtiapine 25mg tablet PO SCH ×3 (08:05→20:30)
[2022-12-26] MEDS: OLANZapine 5mg rapidly disint. tablet PO SCH (08:05)
[2022-12-26] MEDS: magnesium hydroxide 30ml (MOM) UD suspension PO PRN (08:45)
--- NOTE | 2022-12-26 08:51 | NUR ---
Sent updated notes to [place] office (12/19-12/25). MARIA LUISA Villeda
--- NOTE | 2022-12-26 16:55 | NUR ---
Nursing Progress Note: Problem: Pt admitted on 5149 for DTO from our ER. Pt reported that he constantly has thoughts of killing people. He does not know where he can live. He is homeless, does not eat and not wearing shoes. Pt has history of Schizophrenia, bipolar, anxiety, antisocial. Interventions: 1:1 assessment, therapeutic communication, active listening, ensured contract for safety, medication administration/education/monitoring, behavior monitoring and intervention as needed; provided distraction, redirection, positive reinforcement, and Q15 minute safety checks. Response: Pt was up before breakfast. Pt was cooperative and compliant with all medications. Pt expressed to this CERTIFIED ENDOSCOPY TECHNICIAN during 1:1 SI/HI, -AV/H. Pt well-groomed with good hygiene wearing street clothes. PRN Ativan and Nicotine Lozenges. Pt reports feeling constipated, reports LBM 12/23/2022; MOM given. Pt socializes with select peers, pacing hallways wearing headphones. Does not appear to be responding to internal stimuli. Pt making phone calls. Pt is polite with staff. No inappropriate of unsafe behaviors noted today. Plan: Pt is conserved and awaiting placement.
[2022-12-26 19:00] VITALS: RESP 18; O2SAT 98
[2022-12-26 20:00] VITALS: BP 132/60; PULSE 67; RESP 18; TEMP 97.9; O2SAT 98
[2022-12-26] MEDS: OLANZAPINE 5 MG TABLET PO SCH (20:28)
[2022-12-26] MEDS: quetiapine 100mg tablet PO SCH (20:30)
[2022-12-26] MEDS: quetiapine 100mg tablet PO PRN (21:02)
--- NOTE | 2022-12-27 05:31 | NUR ---
Nursing Progress Note: Problem: Pt admitted on 5150 for DTO from our ER. Pt reported that he constantly has thoughts of killing people. He does not know where he can live. He is homeless, does not eat and not wearing shoes. Pt has history of Schizophrenia, bipolar, anxiety, antisocial. Interventions: 1:1 assessment, therapeutic communication, active listening, ensured contract for safety, medication administration/education/monitoring, behavior monitoring and intervention as needed; provided distraction, redirection, positive reinforcement, and Q15 minute safety checks. Response: Patient was found pacing halls at change of shift. Patient kept avoiding eye contact wit nurse and appeared to be responding to internal stimuli. Patient began aggressively walking up to nursing station telling nurse he wanted to kill people and sneak into their homes when their asleep and blow them up. Patient talked about strapping c4 to his chest and blowing up police station, He then went on to talk about building guns so he can go and shit a whole bunch of random people. and throw tear gas and poisons gases. Patient came up to nurses station repeatedly every time telling another gory thing he wanted to do. Patient was very demanding and yelling. Patient was given prn Ativan and prn Seroquel. Patient eventually calm down and retuned to his room. Plan: Pt is conserved and awaiting placement.
[2022-12-27 07:00] VITALS: RESP 18; O2SAT 98
[2022-12-27] MEDS: QUEtiapine 25mg tablet PO SCH ×3 (07:19→20:26)
[2022-12-27] MEDS: docusate sod 100mg capsule PO SCH ×2 (07:19→20:24)
[2022-12-27] MEDS: busPIRone 15mg tablet PO SCH ×3 (07:19→20:24)
[2022-12-27] MEDS: multivitamins, therapeutics tablet PO SCH (07:19)
[2022-12-27] MEDS: OLANZapine 5mg rapidly disint. tablet PO SCH (07:20)
[2022-12-27] MEDS: NICOTINE POLACRILEX 2 MG LOZENGE BC PRN ×3 (07:20→19:21)
[2022-12-27] MEDS: LORazepam 1 MG tablet PO PRN ×2 (07:20→20:27)
[2022-12-27 08:00] VITALS: BP 115/52; PULSE 63; RESP 18; TEMP 97.9; O2SAT 98
[2022-12-27] MEDS: quetiapine 100mg tablet PO PRN ×2 (08:50→19:21)
--- NOTE | 2022-12-27 17:32 | NUR ---
Nursing Progress Note: Problem: Pt admitted on 5150 for DTO from our ER. Pt reported that he constantly has thoughts of killing people. He does not know where he can live. He is homeless, does not eat and not wearing shoes. Pt has history of Schizophrenia, bipolar, anxiety, antisocial. Interventions: 1:1 assessment, therapeutic communication, active listening, ensured contract for safety, medication administration/education/monitoring, behavior monitoring and intervention as needed; provided distraction, redirection, positive reinforcement, and Q15 minute safety checks. Response: Pt was up before breakfast. Pt was cooperative and compliant with all medications. Pt expressed to this PLANNING OFFICIAL during 1:1 SI/+HI stating I have a plan. Im going to kill members of the [employer]; when asked if he would act on plan if not in unit pt states Ya. Of course This PLANNING OFFICIAL was reporting to CN what pt stated and pt came to nurse station and stated, Ya Julio too. After breakfast, pt was seen to be messing with white board in community room; Tech reported that pt handed something to female peer and possibly kept something in hand. This nurse went to pt room and asked what he had been doing. Pt responded with, Nothing. This PLANNING OFFICIAL then told patient that I was told he was messing with the white board; pt states Ya and handed over an approximately 1 inch Gurpreet head black screw. After examining white board, it appears to be missing both bottom screws; pt denied having other screw. Pt well-groomed with good hygiene wearing street clothes. PRN Ativan, Seroquel, and Nicotine Lozenges. Pt socializes with select peers, pacing hallways wearing headphones. Pt making phone calls. Pt pacing with pressured speech. Pt is polite with staff. Plan: Pt is conserved and awaiting placement.
--- NOTE | 2022-12-27 18:18 | NUR ---
Taran Report [employer] called @ 18112/27/2022. Report given to dispatch Terese carr #[id number]. This LUMBER DRIVER reported that during 1:1 assessment pt admitted to homicidal thoughts; killing members of [employer] (no specific names given when asked). Pt reported that he had a plan; stalking persons, finding where they live, gassing them. When asked if pt would act upon homicidal ideations if out of unit, pt reported "Ya, for sure." Officer to call this LUMBER DRIVER back for further information. Addendum: 12/27/22 at 1834 by Humberto Reeder RN This LUMBER DRIVER called back and spoke with Terese carr #[id number], and requested officer to call [facility] charge nurse directly rather than this LUMBER DRIVER's personal cell phone. Both Day/assistant casino shift manager charge nurse aware/notified.
[2022-12-27 19:00] VITALS: RESP 18; O2SAT 98
[2022-12-27 20:00] VITALS: BP 130/62; PULSE 86; RESP 19; TEMP 97; O2SAT 98
[2022-12-27] MEDS: quetiapine 100mg tablet PO SCH (20:24)
[2022-12-27] MEDS: OLANZAPINE 5 MG TABLET PO SCH (20:25)
--- NOTE | 2022-12-28 01:12 | NUR ---
Nursing Progress Note: Problem: Pt admitted on 5150 for DTO from our ER. Pt reported that he constantly has thoughts of killing people. He does not know where he can live. He is homeless, does not eat and not wearing shoes. Pt has history of Schizophrenia, bipolar, anxiety, antisocial. Interventions: 1:1 assessment, therapeutic communication, active listening, ensured contract for safety, medication administration/education/monitoring, behavior monitoring and intervention as needed; provided distraction, redirection, positive reinforcement, and Q15 minute safety checks. Response: Patient pacing in hallway with peers at shift change. Patient was not heard making any derogatory or inappropriate comments this shift. When asked pt stated that he had a good day. Patient socialized with peers and paced in hallway most of the evening. patient made grandiose statements and was seen laughing with cohorts. Patient PRN Seroquel and Ativan this shift. Patient took evening meds w/o complications. Patient paced for a short time after med pass and then went to bed. Plan: Pt is conserved and awaiting placement.
[2022-12-28 07:55] VITALS: BP 121/69; PULSE 66; RESP 16; TEMP 97.7; O2SAT 99
[2022-12-28] MEDS: QUEtiapine 25mg tablet PO SCH ×3 (08:15→19:37)
[2022-12-28] MEDS: docusate sod 100mg capsule PO SCH ×2 (08:15→19:37)
[2022-12-28] MEDS: busPIRone 15mg tablet PO SCH ×3 (08:15→19:37)
[2022-12-28] MEDS: multivitamins, therapeutics tablet PO SCH (08:15)
[2022-12-28] MEDS: OLANZapine 5mg rapidly disint. tablet PO SCH (08:15)
[2022-12-28] MEDS: NICOTINE POLACRILEX 2 MG LOZENGE BC PRN ×5 (08:18→20:44)
--- NOTE | 2022-12-28 17:41 | NUR ---
NURSING PROGRESS NOTE: Problem: Pt admitted on 5150 for DTO from our ER. Pt reported that he constantly has thoughts of killing people. He does not know where he can live. He is homeless, does not eat and not wearing shoes. Pt has history of Schizophrenia, bipolar, anxiety, antisocial. Interventions: One to one with patient to assess mood, monitored behaviors, and administered medication as ordered with no adverse side effects, established clear boundaries, provided safe and supportive environment, encouraged participation in unit activities, attempted to orient to reality, Q15 min safety rounds. Response: Received patient sleeping at shift change. Pt continues to be cooperative with care and compliant with medications. Pt made no homicidal remarks to tech writer or staff. Pt was visible on unit socializing appropriately with select peers. Pt tells tech writer when I talk like that its more to vent, I am not going to act out on it. Pt states he vents to his PO during his visits. Only PRN pt requested was nicotine lozenge. Plan: Pt is conserved and awaiting placement.
[2022-12-28] MEDS: quetiapine 100mg tablet PO PRN (18:42)
[2022-12-28] MEDS: OLANZAPINE 5 MG TABLET PO SCH (19:36)
[2022-12-28] MEDS: LORazepam 1 MG tablet PO PRN (19:36)
[2022-12-28] MEDS: quetiapine 100mg tablet PO SCH (19:37)
[2022-12-28 20:20] VITALS: BP 133/87; PULSE 92; RESP 14; TEMP 97.4; O2SAT 99
--- NOTE | 2022-12-28 23:36 | NUR ---
Nursing Progress Note: Problem: Pt admitted on 5150 for DTO from our ER. Pt reported that he constantly has thoughts of killing people. He does not know where he can live. He is homeless, does not eat and not wearing shoes. Pt has history of Schizophrenia, bipolar, anxiety, antisocial. Interventions: 1:1 assessment, therapeutic communication, active listening, ensured contract for safety, medication administration/education/monitoring, behavior monitoring and intervention as needed; provided distraction, redirection, positive reinforcement, and Q15 minute safety checks. Response: Patient in room socializing with roommate. Pt 1:1, pt denies all MH s/s. Patient heard making inappropriate statements in hallway while pacing.(killing police, making threats to government officials) Patient reminded to speak appropriately. Patient again was overheard speaking inappropriately by other staff member. patient able to be redirected and was again socializing appropriately with peers. Patient told staff member that he heard voices coming from headphones and he was responding to them. Patient given PRN Seroquel 100mg, Ativan 2mg, Nicotine lozenges. Patient took evening meds w/o complications. Patient went to bed shortly after med administration. Plan: Pt is conserved and awaiting placement.
[2022-12-29 07:42] VITALS: BP 113/54; PULSE 56; RESP 18; TEMP 97.3; O2SAT 98
[2022-12-29] MEDS: busPIRone 15mg tablet PO SCH ×3 (07:57→20:40)
[2022-12-29] MEDS: docusate sod 100mg capsule PO SCH ×2 (07:57→20:41)
[2022-12-29] MEDS: QUEtiapine 25mg tablet PO SCH ×3 (07:57→20:40)
[2022-12-29] MEDS: multivitamins, therapeutics tablet PO SCH (07:58)
[2022-12-29] MEDS: OLANZapine 5mg rapidly disint. tablet PO SCH (07:58)
[2022-12-29] MEDS: NICOTINE POLACRILEX 2 MG LOZENGE BC PRN (13:27)
--- NOTE | 2022-12-29 16:35 | NUR ---
NURSING PROGRESS NOTE: Problem: Pt admitted on 5149 for DTO from our ER. Pt reported that he constantly has thoughts of killing people. He does not know where he can live. He is homeless, does not eat and not wearing shoes. Pt has history of Schizophrenia, bipolar, anxiety, antisocial d/o. Interventions: One to one with patient to assess mood, monitored behaviors, and administered medication as ordered with no adverse side effects, established clear boundaries, provided safe and supportive environment, encouraged participation in unit activities, attempted to orient to reality, Q15 min safety rounds. Response: Received patient sleeping at shift change. Pt spends his day pacing lion listening to head phones. Pt is social with select peers, gets along well with his roommate. Pt continues to be compliant with his mediation, and reports no side effects. Steamer Operator asked how pt was adjusting to Seroquel fine, its fine. Pt required verbal reinforcement r/t him talking loudly about fentanyl. Pt said when he wakes up laughing because drugs give me comfort. Pt appears bored, but doesnt verbalize feeling bored. Only PRNs administered to patient were nicotine lozenges. Plan: Pt is conserved and awaiting placement. Addendum: 12/29/22 at 1723 by Kassidy Bradshaw RN Pt required no PRNs until 1713. Pt states I feel anxious only because I have a mood d/o. Sometimes I dont feel a difference. Im manic when if I use drugs or if I dont. Steamer Operator reminded him that on medication that he is linear in thought, not aggressive and not participating I criminal behavior. Pt paused and then said ya your right. Pt told continuity writer I dont know why people complain about being here. Your fed, you get clean clothes and everyone treats you right.
[2022-12-29] MEDS: LORazepam 1 MG tablet PO PRN ×2 (16:50→22:27)
[2022-12-29 19:00] VITALS: BP 122/56; PULSE 85; RESP 16; TEMP 98.3; O2SAT 99
[2022-12-29] MEDS: quetiapine 100mg tablet PO PRN (19:20)
[2022-12-29] MEDS: quetiapine 100mg tablet PO SCH (20:40)
[2022-12-29] MEDS: OLANZAPINE 5 MG TABLET PO SCH (20:41)
--- NOTE | 2022-12-30 05:21 | NUR ---
NURSING PROGRESS NOTE: Problem: Pt admitted on 5150 for DTO from our ER. Pt reported that he constantly has thoughts of killing people. He does not know where he can live. He is homeless, does not eat and not wearing shoes. Pt has history of Schizophrenia, bipolar, anxiety, antisocial d/o. Interventions: One to one with patient to assess mood, monitored behaviors, and administered medication as ordered with no adverse side effects, established clear boundaries, provided safe and supportive environment, encouraged participation in unit activities, attempted to orient to reality, Q15 min safety rounds. Response: Patient is pleasant and cooperative with care; compliant with medication. PRN Quetiapine, Ativan and Nicotine lozenge provided. Patient denies SI, HI, A/VH. However, appears to be responding to IS; no homicidal thoughts expressed this shift. Patient is easily redirected when conversations become inappropriate. He participated in HS snack and socialized with peers prior to bed; observed sleeping and does not appear to be having difficulty. Plan: Pt is conserved and awaiting placement.
[2022-12-30 07:39] VITALS: BP 135/72; PULSE 78; RESP 14; TEMP 98.5; O2SAT 98
[2022-12-30] MEDS: quetiapine 100mg tablet PO SCH ×3 (08:00→20:16)
[2022-12-30] MEDS: multivitamins, therapeutics tablet PO SCH (08:00)
[2022-12-30] MEDS: docusate sod 100mg capsule PO SCH ×2 (08:00→20:16)
[2022-12-30] MEDS: busPIRone 15mg tablet PO SCH ×3 (08:00→20:16)
[2022-12-30] MEDS: OLANZapine 5mg rapidly disint. tablet PO SCH (08:00)
[2022-12-30] MEDS: LORazepam 1 MG tablet PO PRN ×2 (08:01→20:17)
--- NOTE | 2022-12-30 08:46 | NUR ---
F/u 12/30: Pt PO ~100% avg regular diet w/ double protein TID and snacks meeting needs. Noted pt +17.7kg from initial wt 78kg however this wt likely error as initial triage wt 90kg in ER per EMR. LBM 12/27. No nutrition intervention at this time. Will continue to follow. Recommendations: 1. Continue regular diet; double eggs WB, double meat BIDLD 2. Routine bowel care 3. Weekly scaled wts Addendum: 12/30/22 at [address] Amended: Links added.
--- NOTE | 2022-12-30 12:05 | NUR ---
Nursing Progress Note: Problem: Pt admitted on 5150 for DTO from our ER. Pt reported that he constantly has thoughts of killing people. He does not know where he can live. He is homeless, does not eat and not wearing shoes. Pt has history of Schizophrenia, bipolar, anxiety, antisocial. Interventions: 1:1 assessment with therapeutic communication and active listening; medication administration/education/monitoring; educated provided on changes of Ativan. Reminded him I will be alternating the Seroquel and Ativan. And also reminded him the Ativan will be switched to Seroquel eventually. Behavior monitoring and intervention as needed; provided distraction, redirection, positive reinforcement, and Q15 minute safety checks. Response: Pt wanted to sleep through breakfast stating, I just want to sleep. Morning medications given at bedside. Pt requested PRN Ativan. Ativan 2mg PO given with good efficacy. Pt states, Seroquel next time is fine. Pt isolated most of the shift or slept. He is polite with staff. Plan: Pt is conserved and awaiting placement.
[2022-12-30] MEDS: NICOTINE POLACRILEX 2 MG LOZENGE BC PRN ×2 (17:51→20:16)
[2022-12-30] MEDS: QUEtiapine 25mg tablet PO SCH ×2 (17:56→20:16)
[2022-12-30] MEDS: quetiapine 100mg tablet PO PRN (19:00)
[2022-12-30 19:37] VITALS: BP 132/75; PULSE 92; RESP 18; TEMP 97.8; O2SAT 99
[2022-12-30] MEDS: OLANZAPINE 5 MG TABLET PO SCH (20:16)
--- NOTE | 2022-12-31 05:25 | NUR ---
NURSING PROGRESS NOTE: Problem: Pt admitted on 5150 for DTO from our ER. Pt reported that he constantly has thoughts of killing people. He does not know where he can live. He is homeless, does not eat and not wearing shoes. Pt has history of Schizophrenia, bipolar, anxiety, antisocial d/o. Interventions: One to one with patient to assess mood, monitored behaviors, and administered medication as ordered with no adverse side effects, established clear boundaries, provided safe and supportive environment, encouraged participation in unit activities, attempted to orient to reality, Q15 min safety rounds. Response: Patient is pleasant and cooperative with care; compliant with medication. PRN Quetiapine, Ativan and Nicotine lozenge provided. Patient denies SI, HI, A/VH; observed responding to IS in his bedroom. Patient is social with peers, paced the lion and participated in HS snack prior to bed; observed sleeping and does not appear to be having difficulty. Plan: Pt is conserved and awaiting placement.
[2022-12-31 07:00] VITALS: RESP 16; O2SAT 98
[2022-12-31 08:00] VITALS: BP 110/62; PULSE 78; RESP 16; TEMP 98.2; O2SAT 98
[2022-12-31] MEDS: docusate sod 100mg capsule PO SCH ×2 (08:19→20:06)
[2022-12-31] MEDS: quetiapine 100mg tablet PO SCH ×3 (08:20→20:06)
[2022-12-31] MEDS: NICOTINE POLACRILEX 2 MG LOZENGE BC PRN ×2 (08:20→19:27)
[2022-12-31] MEDS: multivitamins, therapeutics tablet PO SCH (08:20)
[2022-12-31] MEDS: OLANZapine 5mg rapidly disint. tablet PO SCH (08:20)
[2022-12-31] MEDS: busPIRone 15mg tablet PO SCH ×3 (08:20→20:06)
[2022-12-31] MEDS: magnesium hydroxide 30ml (MOM) UD suspension PO PRN (15:23)
[2022-12-31] MEDS: LORazepam 1 MG tablet PO PRN (16:15)
[2022-12-31] MEDS: QUEtiapine 25mg tablet PO SCH ×2 (16:16→20:05)
--- NOTE | 2022-12-31 17:17 | NUR ---
Nursing Progress Note: Chan Problem: Currently on LPS awaiting placement. Orig. admit 10/10/22 d/t GD, homeless and unable to formulate a viable plan for jail and food, with homicidal ideations constantly. Pt has history of Schizophrenia, bipolar, anxiety, antisocial. Interventions: Medication administration, 1:1 MH assessment, maintained a safe and supportive environment, provided clear and simple instructions, provided encouragement regarding performance of ADLs, monitored behaviors and maintained clear boundaries, maintained Q15 minute safety checks. Response: Pt. received asleep and awoke for breakfast. Pt. took his medications without hesitation and requested PRN nicotine lozenge. He walked around the unit with another male cohort, listening to headphones and making musical lyrics. Pt. interacts appropriately with cohorts and staff, no grandiose statements made, but did perseverate about his time dealing with criminals. At 1600 pt. was conversing about pedophile killing units gag writer approached pt. to redirect topic, but he presents agitated and only seemed argumentative; PRN Ativan administered. He denies SI, HI, AH,VH and is well groomed and has good hygiene. Pt. ate all meals in the community room and did not nap today. He is a tall young man with short hair and wears street clothes. Plan: Crisis interruption and stabilization in a safe and therapeutic environment, pending placement.
[2022-12-31 19:00] VITALS: BP 149/65; PULSE 94; RESP 18; TEMP 98.1; O2SAT 97
[2022-12-31] MEDS: quetiapine 100mg tablet PO PRN (19:27)
[2022-12-31] MEDS: OLANZAPINE 5 MG TABLET PO SCH (20:06)
--- NOTE | 2023-01-01 02:30 | NUR ---
NURSING PROGRESS NOTE: Problem: Pt admitted on 5150 for DTO from our ER. Pt reported that he constantly has thoughts of killing people. He does not know where he can live. He is homeless, does not eat and not wearing shoes. Pt has history of Schizophrenia, bipolar, anxiety, antisocial d/o. Interventions: One to one with patient to assess mood, monitored behaviors, and administered medication as ordered with no adverse side effects, established clear boundaries, provided safe and supportive environment, encouraged participation in unit activities, attempted to orient to reality, Q15 min safety rounds. Response: Patient is pleasant and cooperative with care; compliant with medication. PRN Quetiapine and Nicotine lozenge provided. He denies SI, HI, A/VH; appears to be responding to IS at times. No inappropriate conversations over heard this shift; appeared calmer but remains restless while awake. Patient social with peers, paced the lion while listening to headphones and participated in HS snack prior to bed; observed sleeping and does not appear to be having difficulty. Plan: Pt is conserved and awaiting placement.
[2023-01-01 07:00] VITALS: RESP 14; O2SAT 98
[2023-01-01] MEDS: quetiapine 100mg tablet PO SCH ×3 (07:30→20:07)
[2023-01-01] MEDS: busPIRone 15mg tablet PO SCH ×3 (07:30→20:08)
[2023-01-01] MEDS: docusate sod 100mg capsule PO SCH ×2 (07:30→20:08)
[2023-01-01] MEDS: multivitamins, therapeutics tablet PO SCH (07:30)
[2023-01-01] MEDS: buPROPion SR 100mg tab PO SCH (07:30)
[2023-01-01] MEDS: OLANZapine 5mg rapidly disint. tablet PO SCH (07:30)
[2023-01-01 07:41] VITALS: BP 104/50; PULSE 59; RESP 14; TEMP 98.6; O2SAT 98
[2023-01-01] MEDS: NICOTINE POLACRILEX 2 MG LOZENGE BC PRN (11:47)
--- NOTE | 2023-01-01 13:29 | NUR ---
Sent updated notes to [place] office (12/25-12/31). MARIA LUISA Villeda
[2023-01-01] MEDS: QUEtiapine 25mg tablet PO SCH ×2 (16:18→20:07)
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
[2023-01-01 19:00] VITALS: BP 141/92; PULSE 90; RESP 18; TEMP 98.2; O2SAT 98
[2023-01-01] MEDS: OLANZAPINE 5 MG TABLET PO SCH (20:08)
[2023-01-02] MEDS: quetiapine 100mg tablet PO PRN ×2 (00:08→18:49)
--- NOTE | 2023-01-02 01:33 | NUR ---
NURSING PROGRESS NOTE: Problem: Pt admitted on 5150 for DTO from our ER. Pt reported that he constantly has thoughts of killing people. He does not know where he can live. He is homeless, does not eat and not wearing shoes. Pt has history of Schizophrenia, bipolar, anxiety, antisocial d/o. Interventions: One to one with patient to assess mood, monitored behaviors, and administered medication as ordered with no adverse side effects, established clear boundaries, provided safe and supportive environment, encouraged participation in unit activities, attempted to orient to reality, Q15 min safety rounds. Response: received patient wearing headphones and pacing the lion at change of shift. Pleasant, cooperative and compliant with medications. Observed sitting quietly in community room coloring. Socialized with peers in community room. Patient was hyperverbal briefly during the beginning of shift. Denies SI,HI,AH,VH. States he's in a great mood. Participated in snack and went to bed shortly after. Patient woke up around 0000 requesting PRN Seroquel. Appears to be sleeping with headphones on without any difficulty. Plan: Pt is conserved and awaiting placement.
[2023-01-02 07:00] VITALS: RESP 12; O2SAT 97
[2023-01-02 07:44] VITALS: BP 126/65; PULSE 77; RESP 12; TEMP 97.9; O2SAT 97
[2023-01-02] MEDS: busPIRone 15mg tablet PO SCH ×3 (07:44→19:30)
[2023-01-02] MEDS: docusate sod 100mg capsule PO SCH ×2 (07:44→19:32)
[2023-01-02] MEDS: multivitamins, therapeutics tablet PO SCH (07:44)
[2023-01-02] MEDS: quetiapine 100mg tablet PO SCH ×3 (07:45→19:31)
[2023-01-02] MEDS: buPROPion SR 100mg tab PO SCH (07:45)
[2023-01-02] MEDS: OLANZapine 5mg rapidly disint. tablet PO SCH (07:45)
[2023-01-02] MEDS: NICOTINE POLACRILEX 2 MG LOZENGE BC PRN (15:45)
[2023-01-02] MEDS: QUEtiapine 25mg tablet PO SCH ×2 (16:29→19:31)
--- NOTE | 2023-01-02 16:32 | NUR ---
Nursing Progress Note: Problem: Pt admitted on 5150 for DTO from our ER. Pt reported that he constantly has thoughts of killing people. He does not know where he can live. He is homeless, does not eat and not wearing shoes. Pt has history of Schizophrenia, bipolar,anxiety,antisocial. Interventions: 1:1 assessment, therapeutic communication, active listening, medication administration/education/monitoring, behavior monitoring and intervention as needed; provided distraction, redirection, reality orientation, limit setting, positive reinforcement, and Q15 minute safety checks. Response: Pt was up before breakfast and cooperative with medications. Pt appears to be responding to internal stimuli. Pt observed pacing the unit with the radio headphones on talking to himself. If you ask him who he is talking to, he will reply, "myself." Pt is hyperverbal when talking to himself and others. Pt socializes with peers, he frequently offers them works of encouragement. Diet and exercise is important to the patient and he makes sure to drink lots of water. Pt is probably drinking 10-15 water pitchers a day. Pt again brought up the Hepatitis C thing and asked the psychiatrist if he can be tested for it. Pt continues to make delusional statements often grandiose, often involving gang-related or spiritual type themes. Pt spoke of IPs and RPs, "[place] Pride" and "Red Pride." Pt has no issues with a male peer and frequently socializes with him. Pt stated, "I've been buying and selling souls since I was a little kid." Plan: Pt is conserved and awaiting placement.
[2023-01-02 19:00] VITALS: RESP 18; O2SAT 98
[2023-01-02] MEDS: OLANZAPINE 5 MG TABLET PO SCH (19:30)
[2023-01-02 19:40] VITALS: BP 137/92; PULSE 110; RESP 18; TEMP 98.7; O2SAT 98
--- NOTE | 2023-01-02 23:29 | NUR ---
NURSING PROGRESS NOTE: Problem: Pt admitted on 5150 for DTO from our ER. Pt reported that he constantly has thoughts of killing people. He does not know where he can live. He is homeless, does not eat and not wearing shoes. Pt has history of Schizophrenia, bipolar, anxiety, antisocial d/o. Interventions: One to one with patient to assess mood, monitored behaviors, and administered medication as ordered with no adverse side effects, established clear boundaries, provided safe and supportive environment, encouraged participation in unit activities, attempted to orient to reality, Q15 min safety rounds. Response: received patient pacing the lion at change of shift. He is hyperverbal and making delusional statements. Appears to be responding to internal stimuli. Hysterical laughing and speaking to himself . Patient requested to have his PRN Seroquel which had no effect. Continued with elevated mood. "follow me in serbian" "abort the baby w/plan B , my first born" "low black shortie still a spider", "give me a flare gun, I'll shoot the flare in my mouth", " I can literally commit suicide". Bedtime medications given early. Participated in snack. Continued to pace the unit making delusional statements until 0. Patient appears to be sleeping at this time without difficulty. Plan: Pt is conserved and awaiting placement. Addendum: 01/03/23 at 0328 by Jennifer Felder RN patient was given one time dose of ativan 2mg PO and additional seroquel 100mg PO for agitation.
[2023-01-03] MEDS: quetiapine 100mg tablet PO PRN (02:11)
[2023-01-03] MEDS ORDERED: quetiapine 100mg tablet PO ONE (03:10)
[2023-01-03] MEDS ORDERED: LORazepam 1 MG tablet PO ONE ×2 (03:10→21:00)
--- NOTE | 2023-01-03 03:12 | NUR ---
This development writer assisted the primary care ADMISSIONS MANAGER RN with this patient who received Seroquel 200 mg over an hour ago for yelling delusional statements and pacing. Since that time the patient continues to pace in his room and presents with continuing agitation. Dr. Meneses advised. Dr. Meneses gave VO for Ativan 2mg PO and an additional Seroquel 100 mg PO. The orders were placed.
[2023-01-03 07:00] VITALS: RESP 16; O2SAT 98
[2023-01-03 07:36] VITALS: BP 125/56; PULSE 72; RESP 16; TEMP 97.7; O2SAT 98
[2023-01-03] MEDS: docusate sod 100mg capsule PO SCH ×2 (08:42→19:57)
[2023-01-03] MEDS: OLANZapine 5mg rapidly disint. tablet PO SCH (08:42)
[2023-01-03] MEDS: multivitamins, therapeutics tablet PO SCH (08:42)
[2023-01-03] MEDS: buPROPion SR 100mg tab PO SCH (08:42)
[2023-01-03] MEDS: busPIRone 15mg tablet PO SCH ×3 (08:42→19:57)
[2023-01-03] MEDS: quetiapine 100mg tablet PO SCH ×3 (08:42→19:55)
--- NOTE | 2023-01-03 15:17 | NUR ---
Nursing Progress Note: Problem: Pt admitted on 5150 for DTO from our ER. Pt reported that he constantly has thoughts of killing people. He does not know where he can live. He is homeless, does not eat and not wearing shoes. Pt has history of Schizophrenia, bipolar,anxiety,antisocial. Interventions: Provided 1:1 assessment with therapeutic communication and active listening, provided medication administration/education/monitoring, behavior monitoring and intervention as needed; redirection, reality orientation, limit setting, positive reinforcement, and Q15 minute safety checks. Response: Pt refused breakfast, up for 10 minutes for lunch then quickly retreats to his room. He had a snack in the morning, a sandwich, then declined snack at 1500. He was observed pacing with headphones in his room. Pt has slept this entire shift. Plan: Pt is conserved and awaiting placement.
[2023-01-03] MEDS: NICOTINE POLACRILEX 2 MG LOZENGE BC PRN ×2 (17:17→19:53)
[2023-01-03] MEDS: QUEtiapine 25mg tablet PO SCH (17:17)
[2023-01-03 19:00] VITALS: RESP 18; O2SAT 99
[2023-01-03] MEDS: OLANZAPINE 5 MG TABLET PO SCH (19:56)
[2023-01-03 20:00] VITALS: BP 98/68; PULSE 101; RESP 18; TEMP 98.1; O2SAT 99
--- NOTE | 2023-01-04 | NUR ---
Nursing Progress Note: Problem: Pt admitted on 5150 for DTO from our ER. Pt reported that he constantly has thoughts of killing people. He does not know where he can live. He is homeless, does not eat and not wearing shoes. Pt has history of Schizophrenia, bipolar,anxiety,antisocial. Interventions: Provided 1:1 assessment with therapeutic communication and active listening, provided medication administration/education/monitoring, behavior monitoring and intervention as needed; redirection, reality orientation, limit setting, positive reinforcement, and Q15 minute safety checks. Response: Awake socializing and walking the lion at shift change. Pleasant and cooperative. Observed sitting in community room speaking to a peer and staff about his first tattoo. Requested PRN nicotine lozenge. Compliant with medications.Denies SI,HI, AH, VH. Perseverates on Hep C. Participated in evening snack and returned to room shortly after. Observed and appears to be sleeping without difficulty.
[2023-01-04] MEDS: quetiapine 100mg tablet PO PRN ×2 (07:57→11:39)
[2023-01-04] MEDS: buPROPion SR 100mg tab PO SCH (07:57)
[2023-01-04] MEDS: busPIRone 15mg tablet PO SCH ×3 (07:57→20:31)
[2023-01-04] MEDS: quetiapine 100mg tablet PO SCH ×3 (07:58→20:31)
[2023-01-04] MEDS: OLANZapine 5mg rapidly disint. tablet PO SCH (07:58)
[2023-01-04] MEDS: docusate sod 100mg capsule PO SCH ×2 (07:58→20:31)
[2023-01-04] MEDS: multivitamins, therapeutics tablet PO SCH (07:58)
[2023-01-04 08:00] VITALS: BP 117/74; PULSE 80; RESP 14; TEMP 98; O2SAT 100
[2023-01-04] MEDS: NICOTINE POLACRILEX 2 MG LOZENGE BC PRN ×2 (11:39→19:52)
[2023-01-04] MEDS: LORazepam 1 MG tablet PO PRN (13:48)
[2023-01-04] MEDS: QUEtiapine 25mg tablet PO SCH (16:04)
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
[2023-01-04 20:00] VITALS: BP 111/51; PULSE 100; RESP 16; TEMP 98.8; O2SAT 96
[2023-01-04] MEDS: OLANZAPINE 5 MG TABLET PO SCH (20:31)
--- NOTE | 2023-01-05 00:10 | NUR ---
Nursing Progress Note: Danita Problem PT admitted today on 5150 for DTS from our ER today at 1431. Patient delusional thinking that everyone is intentionally triggering her PTSD to make her crazy. She states her boyfriend, family and even the TV is doing it. Pt has history of schizoaffective. Interventions: The patient was educated to her medications. Provide medication administration & medication management; Maintained a safe & supportive environment; Clear & simple instructions; monitored behaviors & maintained clear boundaries; Patient physical assessment & 1:1 patient interview; Therapeutic conversation & active listening. She is on q 15 minute safety checks. Response: received patient sitting in room at change of shift. Observed socializing with room mate . Denies depression, AH/VH, SI/HI. Appears to be responding to internal stimuli. Compliant with medications. Participated in snack. Walked the lion for a short while and went to bed. Appears to be sleeping at this time. Plan: Continue q 15 minute safety checks. Provide medication education and assess q shift for medication side effects.
[2023-01-05] MEDS: multivitamins, therapeutics tablet PO SCH (07:52)
[2023-01-05] MEDS: magnesium hydroxide 30ml (MOM) UD suspension PO PRN (07:52)
[2023-01-05] MEDS: busPIRone 15mg tablet PO SCH ×3 (07:53→20:17)
[2023-01-05] MEDS: docusate sod 100mg capsule PO SCH ×2 (07:53→20:17)
[2023-01-05] MEDS: quetiapine 100mg tablet PO SCH ×3 (07:53→20:17)
[2023-01-05] MEDS: OLANZapine 5mg rapidly disint. tablet PO SCH (07:53)
[2023-01-05 08:00] VITALS: BP 133/73; PULSE 77; RESP 15; TEMP 97.3; O2SAT 96
--- NOTE | 2023-01-05 08:49 | NUR ---
PLACEMENT UPDATE LPS team is seeking placement at D level of care. Referral is in the que at [facility], [facility], [facility], [facility], and [facility]. Client has been declined 1x at [facility]; packet was re-presented with updated notes on 12/19/22. MARIA LUISA Villeda
[2023-01-05] MEDS: QUEtiapine 25mg tablet PO SCH (16:04)
[2023-01-05] MEDS: NICOTINE POLACRILEX 2 MG LOZENGE BC PRN (16:25)
--- NOTE | 2023-01-05 16:41 | NUR ---
Nursing Progress Note: Problem: Pt admitted on 5150 for DTO from our ER. Pt reported that he constantly has thoughts of killing people. He does not know where he can live. He is homeless, does not eat and not wearing shoes. Pt has history of Schizophrenia, bipolar, anxiety & anti-social. Interventions: Interventions: Provide medication administration & medication management; Maintained a safe & supportive environment; Clear & simple instructions; Direction & encouragement regarding performance of ADLs; monitored behaviors & maintained clear boundaries; Patient physical assessment & 1:1 patient interview; Therapeutic conversation & active listening; Patient education & monitoring. Response: Received patient who was up and awake at approximately 0720, and was drinking coffee and watching TV in the Community Room until 8:00 am and ate breakfast. Patient walked multiple laps with another peer, with no discussion of homicidal ideation throughout the daytime. Patient went out of the building for a eye appointment and returned in approximately 1.50 hours. Patient reports a small bowel movement after received MOM yesterday, and requested another dose with his 0800 medications. Patient took all of his ordered medications without hesitation. Patient ambulated after lunch in the halls, then went to lie down and take a nap this afternoon. Plan: Pt is conserved and awaiting placement.
[2023-01-05 18:22] VITALS: RESP 15; O2SAT 96
[2023-01-05 19:29] VITALS: BP 134/59; PULSE 87; RESP 18; TEMP 97.6; O2SAT 98
[2023-01-05] MEDS: OLANZAPINE 5 MG TABLET PO SCH (20:17)
--- NOTE | 2023-01-05 20:35 | NUR ---
Nursing Progress Note: Problem: Pt admitted on 515 for DTO from our ER. Pt reported that he constantly has thoughts of killing people. He does not know where he can live. He is homeless, does not eat and not wearing shoes. Pt has history of Schizophrenia, bipolar, anxiety & anti-social. Interventions: Interventions: Provide medication administration & medication management; Maintained a safe & supportive environment; Clear & simple instructions; Direction & encouragement regarding performance of ADLs; monitored behaviors & maintained clear boundaries; Patient physical assessment & 1:1 patient interview; Therapeutic conversation & active listening; Patient education & monitoring. Response: Pt was walking in the lion at change of shift. Pt is very animated and is in a good mood. Pt continues to make delusional statements "I saw Queen Kadi [facility] watching people today, I was the only one that saw her." Pt reports having a large bowel movement today. Pt spends time socializing and laughing w/his roommate. Pt took HS meds and spent time playing board games with peers before going to bed. Plan: Pt is conserved and awaiting placement. Addendum: 01/05/23 at 2112 by Reyna Alicia RN Pt got out of bed and began pacing, requested prn seroquel to help with sleep. PRN given
[2023-01-05] MEDS: quetiapine 100mg tablet PO PRN (21:10)
[2023-01-05] MEDS: LORazepam 1 MG tablet PO PRN (21:48)
[2023-01-06 08:00] VITALS: BP 122/71; PULSE 76; RESP 14; TEMP 97.8; O2SAT 100
[2023-01-06] MEDS: quetiapine 100mg tablet PO SCH ×3 (08:04→20:08)
[2023-01-06] MEDS: busPIRone 15mg tablet PO SCH ×3 (08:04→20:08)
[2023-01-06] MEDS: multivitamins, therapeutics tablet PO SCH (08:04)
[2023-01-06] MEDS: OLANZapine 5mg rapidly disint. tablet PO SCH (08:04)
[2023-01-06] MEDS: docusate sod 100mg capsule PO SCH ×2 (08:05→20:08)
[2023-01-06] MEDS: LORazepam 1 MG tablet PO PRN (14:37)
[2023-01-06] MEDS: QUEtiapine 25mg tablet PO SCH (16:10)
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
--- NOTE | 2023-01-06 16:40 | NUR ---
Nursing Progress Note: Problem: Pt admitted on 5150 for DTO from our ER. Pt reported that he constantly has thoughts of killing people. He does not know where he can live. He is homeless, does not eat and not wearing shoes. Pt has history of Schizophrenia, bipolar, anxiety & anti-social. Interventions: Interventions: Provide medication administration & medication management; Maintained a safe & supportive environment; Clear & simple instructions; Direction & encouragement regarding performance of ADLs; monitored behaviors & maintained clear boundaries; Patient physical assessment & 1:1 patient interview; Therapeutic conversation & active listening; Patient education & monitoring. Response: Patient has had a great day. Very calm. Listened to headphones while walking in the hallways multiple laps. Patient remembered this Writers name for the first time in a while, and took his medications without hesitation. Patient had no negative conversations about homicidal ideation as well as negative talk that other peers have reported as offensive. Patient rested in bed for short periods of time after breakfast and lunch. No delusions exhibited today. Patient requested Ativan at 1437. Plan: Pt is conserved and awaiting placement.
[2023-01-06 19:03] VITALS: RESP 14; O2SAT 98
[2023-01-06 19:38] VITALS: BP 146/73; PULSE 83; RESP 16; TEMP 97.6; O2SAT 98
[2023-01-06] MEDS: OLANZAPINE 5 MG TABLET PO SCH (20:08)
--- NOTE | 2023-01-06 22:31 | NUR ---
Nursing Progress Note: Problem: Pt admitted on 5150 for DTO from our ER. Pt reported that he constantly has thoughts of killing people. He does not know where he can live. He is homeless, does not eat and not wearing shoes. Pt has history of Schizophrenia, bipolar, anxiety & anti-social. Interventions: Interventions: Provide medication administration & medication management; Maintained a safe & supportive environment; Clear & simple instructions; Direction & encouragement regarding performance of ADLs; monitored behaviors & maintained clear boundaries; Patient physical assessment & 1:1 patient interview; Therapeutic conversation & active listening; Patient education & monitoring. Response: Patient was in his room at change of shift listening to headphones. Pt isolated to his room this shift. Pt states he is "fine." Pt got up for snacks and returned to his room. Pt took HS meds and went to sleep. Plan: Pt is conserved and awaiting placement.
[2023-01-07 06:26] LABS: HEPATITIS C VIRUS ANTIBODY >11.0 s/co ratio (0.0-0.9)
[2023-01-07 07:37] VITALS: BP 125/74; PULSE 89; RESP 18; TEMP 98.1; O2SAT 99
[2023-01-07] MEDS: docusate sod 100mg capsule PO SCH ×2 (07:45→20:01)
[2023-01-07] MEDS: busPIRone 15mg tablet PO SCH ×3 (07:45→20:02)
[2023-01-07] MEDS: LORazepam 1 MG tablet PO PRN ×2 (07:45→21:25)
[2023-01-07] MEDS: multivitamins, therapeutics tablet PO SCH (07:45)
[2023-01-07] MEDS: quetiapine 100mg tablet PO SCH ×3 (07:47→20:01)
--- NOTE | 2023-01-07 07:47 | NUR ---
F/u 01/07: Pt continues w/ PO ~100% mostly regular meals w/ double protein TID and snacks meeting needs. LBM 01/06. No nutrition intervention at this time. Will continue to follow. Recommendations: 1. Continue regular diet; double eggs WB, double meat BIDLD 2. Routine bowel care 3. Weekly scaled wts Addendum: 01/07/23 at [address] Amended: Links added.
[2023-01-07] MEDS: OLANZapine 5mg rapidly disint. tablet PO SCH (07:50)
[2023-01-07] MEDS: LORazepam 0.5 MG tablet PO SCH ×4 (09:01→20:01)
[2023-01-07] MEDS: NICOTINE POLACRILEX 2 MG LOZENGE BC PRN ×4 (09:13→21:18)
--- NOTE | 2023-01-07 16:04 | NUR ---
Nursing Progress Note: Problem: Pt admitted on 5150 for DTO from our ER. Pt reported that he constantly has thoughts of killing people. He does not know where he can live. He is homeless, does not eat and not wearing shoes. Pt has history of Schizophrenia, bipolar, anxiety & anti-social. Interventions: Provided 1:1 assessment with therapeutic communication and active listening; Provided medication administration/education/monitoring; Maintained a safe & supportive environment; Monitored behaviors & maintained clear boundaries; Maintained Q15 minute safety checks. Response: Pt. compliant with assessment and medication pass. He knows when his medications are due and will ask for them at the time they are due. He is up for all meals and snacks. He spent the day visiting with staff and peers. Engaged in conversation and laughed with staff and responds appropriately in a conversation. Listened to headphones while walking in the hallways. He denies both SI/HI. Plan: Pt is conserved and awaiting placement.
[2023-01-07] MEDS: QUEtiapine 25mg tablet PO SCH (16:21)
[2023-01-07 19:00] VITALS: BP 109/58; PULSE 92; RESP 19; TEMP 97.8; O2SAT 98
[2023-01-07 19:07] VITALS: RESP 18; O2SAT 99
[2023-01-07] MEDS: OLANZAPINE 5 MG TABLET PO SCH (20:01)
--- NOTE | 2023-01-07 22:11 | NUR ---
Nursing Progress Note: Problem: Pt admitted on 5150 for DTO from our ER. Pt reported that he constantly has thoughts of killing people. He does not know where he can live. He is homeless, does not eat and not wearing shoes. Pt has history of Schizophrenia, bipolar, anxiety & anti-social. Interventions: Provided 1:1 assessment with therapeutic communication and active listening; Provided medication administration/education/monitoring; Maintained a safe & supportive environment; Monitored behaviors & maintained clear boundaries; Maintained Q15 minute safety checks. Response: Pt is up socializing with peers at change of shift. Spends time listening to headphones. Pt state he is doing good. Pt reports he is hearing voices "Ya I am, but it's ok, can I get a nicotine lozenge?" Pt was given prn Nicotine lozenge, and appears to be anxious but is interacting pleasantly with peers. Pt had snack and is compliant with HS meds. Pt requesting PRN nicotine lozenge and prn ativan before bed. Plan: Pt is conserved and awaiting placement.
[2023-01-08 07:00] VITALS: RESP 16; O2SAT 99
[2023-01-08] MEDS: LORazepam 0.5 MG tablet PO SCH ×4 (07:41→19:53)
[2023-01-08] MEDS: docusate sod 100mg capsule PO SCH ×2 (07:41→19:53)
[2023-01-08] MEDS: quetiapine 100mg tablet PO SCH ×3 (07:42→19:54)
[2023-01-08] MEDS: busPIRone 15mg tablet PO SCH ×3 (07:42→19:53)
[2023-01-08] MEDS: OLANZapine 5mg rapidly disint. tablet PO SCH (07:42)
[2023-01-08] MEDS: multivitamins, therapeutics tablet PO SCH (07:42)
[2023-01-08 08:02] VITALS: BP 106/55; PULSE 84; RESP 16; TEMP 97.9; O2SAT 99
[2023-01-08] MEDS: NICOTINE POLACRILEX 2 MG LOZENGE BC PRN ×2 (13:07→15:47)
--- NOTE | 2023-01-08 14:18 | NUR ---
PLACEMENT UPDATE Placement packet is in queue at [facility], [facility], [facility], [facility], [facility], and [facility]. Client has been declined at [facility]. MARIA LUISA Villeda
--- NOTE | 2023-01-08 14:34 | NUR ---
Nursing Progress Note: Problem: Pt admitted on 5150 for DTO from our ER. Pt reported that he constantly has thoughts of killing people. He does not know where he can live. He is homeless, does not eat and not wearing shoes. Pt has history of Schizophrenia, bipolar, anxiety & anti-social. Interventions: Provided 1:1 assessment with therapeutic communication and active listening; Provided medication administration/education/monitoring; Maintained a safe & supportive environment; Monitored behaviors & maintained clear boundaries; Maintained Q15 minute safety checks. Response: Received Pt in bed sleeping w/o distress. Pt woke and was cooperative with vitals and returned to sleep until breakfast. Pt engaged in assessments and took meds throughout the day w/o issue. He denies both SI/HI. Pt did exercises with another Pt and socialized with two other male staff. Pt heard laughing while listening to headphones. Overall pleasant and cooperative. Plan: Pt is conserved and awaiting placement.
[2023-01-08] MEDS: QUEtiapine 25mg tablet PO SCH (16:12)
[2023-01-08] MEDS: OLANZAPINE 5 MG TABLET PO SCH (19:54)
[2023-01-08 20:00] VITALS: BP 135/68; PULSE 100; RESP 16; TEMP 96.8; O2SAT 98
--- NOTE | 2023-01-08 23:56 | NUR ---
Nursing Progress Note: Chan Problem: Pt admitted on 5150 for DTO from our ER. Pt reported that he constantly has thoughts of killing people. He does not know where he can live. He is homeless, does not eat and not wearing shoes. Pt has history of Schizophrenia, bipolar, anxiety & anti-social. Interventions: Provided 1:1 assessment with therapeutic communication and active listening; Provided medication administration/education/monitoring; Maintained a safe & supportive environment; Monitored behaviors & maintained clear boundaries; Maintained Q15 minute safety checks. Response: Received Pt in community room playing cards with peers. Pt cooperative with assessment and care. Pt later observed to be pacing with headphones. Pt participated in snacks and took all HS medications without issue. Pt spent some time in community room watching TV before retiring to bed. Plan: Pt is conserved and awaiting placement.
[2023-01-09 07:00] VITALS: RESP 14; O2SAT 99
[2023-01-09 08:00] VITALS: BP 118/72; PULSE 87; RESP 14; TEMP 97.7; O2SAT 99
[2023-01-09] MEDS: multivitamins, therapeutics tablet PO SCH (08:00)
--- NOTE | 2023-01-09 09:39 | NUR ---
Sent updated notes to [place] office (01/01-01/08), MARIA LUISA Villeda
[2023-01-09] MEDS: NICOTINE POLACRILEX 2 MG LOZENGE BC PRN ×3 (09:45→16:54)
[2023-01-09] MEDS: OLANZapine 5mg rapidly disint. tablet PO SCH (09:46)
[2023-01-09] MEDS: quetiapine 100mg tablet PO SCH ×3 (09:50→20:11)
[2023-01-09] MEDS: LORazepam 0.5 MG tablet PO SCH ×4 (09:51→20:11)
[2023-01-09] MEDS: docusate sod 100mg capsule PO SCH ×2 (09:51→20:11)
[2023-01-09] MEDS: busPIRone 15mg tablet PO SCH ×3 (09:52→20:11)
[2023-01-09] MEDS: QUEtiapine 25mg tablet PO SCH (16:54)
--- NOTE | 2023-01-09 17:25 | NUR ---
Nursing Progress Note: Problem: Pt admitted on 5150 for DTO from our ER. Pt reported that he constantly has thoughts of killing people. He does not know where he can live. He is homeless, does not eat and not wearing shoes. Pt has history of Schizophrenia, bipolar, anxiety & anti-social. Interventions: Provided 1:1 assessment with therapeutic communication and active listening; Provided medication administration/education/monitoring; Maintained a safe & supportive environment; Monitored behaviors & maintained clear boundaries; Maintained Q 15 minute safety checks. Response: Patient received sleeping in bed at change of shift. He was observed walking around the unit throughout the morning, listening to music through headphones. He was receptive to all medication and 1:1 assessment. Patient refused both breakfast and lunch trays despite encouragement, endorsing that he is fasting today. Patient offered snacks and alternates. He was observed prancing down the hallway with a large smile on his face, endorsing excitement that his friend is here on the unit. Patient had no signs of irritability or behaviors noted on this shift. Patient joined with peers on the patio later in the day. He was cooperative throughout the day. He denies SI/HI and A/VH. He was observed napping on and off throughout the day and observed exercising periodically. Plan: Pt is conserved and awaiting placement.
[2023-01-09 19:00] VITALS: BP 137/76; PULSE 76; RESP 18; TEMP 97.2; O2SAT 97
[2023-01-09] MEDS: OLANZAPINE 5 MG TABLET PO SCH (20:11)
--- NOTE | 2023-01-10 00:56 | NUR ---
Nursing Progress Note: Chan Problem: Pt admitted on 5150 for DTO from our ER. Pt reported that he constantly has thoughts of killing people. He does not know where he can live. He is homeless, does not eat and not wearing shoes. Pt has history of Schizophrenia, bipolar, anxiety & anti-social. Interventions: Provided 1:1 assessment with therapeutic communication and active listening; Provided medication administration/education/monitoring; Maintained a safe & supportive environment; Monitored behaviors & maintained clear boundaries; Maintained Q 15 minute safety checks. Response: Patient received pacing the unit, approached this RN and was polite and cooperative. States he is doing well, denies MH symptoms. Pt participated in snacks and took all HS medications. Pt was observed pacing the unit with another peer and they seemed to be enjoying each others company. Pt is currently sleeping, will continue to monitor. Plan: Pt is conserved and awaiting placement.
[2023-01-10 07:00] VITALS: RESP 16; O2SAT 100
[2023-01-10 08:00] VITALS: BP 121/51; PULSE 98; RESP 16; TEMP 98.1; O2SAT 100
[2023-01-10] MEDS: busPIRone 15mg tablet PO SCH ×3 (08:03→20:17)
[2023-01-10] MEDS: multivitamins, therapeutics tablet PO SCH (08:03)
[2023-01-10] MEDS: LORazepam 0.5 MG tablet PO SCH ×4 (08:03→20:17)
[2023-01-10] MEDS: docusate sod 100mg capsule PO SCH ×2 (08:03→20:17)
[2023-01-10] MEDS: OLANZapine 5mg rapidly disint. tablet PO SCH (08:03)
[2023-01-10] MEDS: quetiapine 100mg tablet PO SCH ×3 (08:04→20:18)
[2023-01-10] MEDS: NICOTINE POLACRILEX 2 MG LOZENGE BC PRN ×5 (08:35→20:41)
[2023-01-10] MEDS: magnesium hydroxide 30ml (MOM) UD suspension PO PRN (16:23)
[2023-01-10] MEDS: QUEtiapine 25mg tablet PO SCH (16:23)
--- NOTE | 2023-01-10 16:53 | NUR ---
Nursing Progress Note: Problem: Pt admitted on 5150 for DTO from our ER. Pt reported that he constantly has thoughts of killing people. He does not know where he can live. He is homeless, does not eat and not wearing shoes. Pt has history of Schizophrenia, bipolar,anxiety,antisocial. Interventions: 1:1 assessment, therapeutic communication, active listening, medication administration/education/monitoring, behavior monitoring and intervention as needed; provided distraction, redirection, positive reinforcement, and Q15 minute safety checks. Response: Pt was up before breakfast, he was pleasant and cooperative with medications. Pt made a phone call after breakfast. He was heard saying, "okay, I love you mom, archana." Pt politely requests nicotine lozenges throughout the day. Pt paces and listens to radio headphones, pt socializes with select peers. Pt c/o constipation and requested MOM at 1623. Pt was not observed responding to internal stimuli today, pt did not have any verbal outbursts. This RN did not hear pt make any delusional statements. Plan: Pt is conserved and awaiting placement.
[2023-01-10 20:05] VITALS: BP 119/71; PULSE 92; RESP 19; TEMP 98.3; O2SAT 97
[2023-01-10] MEDS: OLANZAPINE 5 MG TABLET PO SCH (20:18)
--- NOTE | 2023-01-10 23:15 | NUR ---
Nursing Progress Note: Chan Problem: Pt admitted on 5150 for DTO from our ER. Pt reported that he constantly has thoughts of killing people. He does not know where he can live. He is homeless, does not eat and not wearing shoes. Pt has history of Schizophrenia, bipolar,anxiety,antisocial. Interventions: 1:1 assessment, therapeutic communication, active listening, medication administration/education/monitoring, behavior monitoring and intervention as needed; provided distraction, redirection, positive reinforcement, and Q15 minute safety checks. Response: Pt up pacing the unit with another peer. Pt pleasant and cooperative with care, pt greeted this RN appropriately and asked for nicotine lozenge. Pt observed in the community room watching TV with other peers. Pt up for snacks and took all HS medications without issue. Pt did not have any outbursts this shift and didnt appear to be responding to IS. Plan: Pt is conserved and awaiting placement.
[2023-01-11] MEDS: quetiapine 100mg tablet PO SCH ×4 (07:35→20:52)
[2023-01-11] MEDS: busPIRone 15mg tablet PO SCH ×3 (07:35→20:52)
[2023-01-11] MEDS: docusate sod 100mg capsule PO SCH ×2 (07:35→20:51)
[2023-01-11] MEDS: NICOTINE POLACRILEX 2 MG LOZENGE BC PRN ×3 (07:35→15:41)
[2023-01-11] MEDS: multivitamins, therapeutics tablet PO SCH (07:35)
[2023-01-11] MEDS: LORazepam 0.5 MG tablet PO SCH ×4 (07:35→20:52)
[2023-01-11] MEDS: OLANZapine 5mg rapidly disint. tablet PO SCH (07:35)
[2023-01-11 08:00] VITALS: BP 157/63; PULSE 80; RESP 18; TEMP 97.7; O2SAT 99
--- NOTE | 2023-01-11 17:44 | NUR ---
NURSING PROGRESS NOTE Problem: Pt admitted on 5150 for DTO from our ER. Pt reported that he constantly has thoughts of killing people. He does not know where he can live. He is homeless, does not eat and not wearing shoes. Pt has history of Schizophrenia, bipolar, anxiety, antisocial. Interventions: One to one with patient to assess mood, administered medication as ordered with no adverse side effects, monitored behaviors, provided safe and supportive environment, encouraged participation in unit activities, orient to reality as needed, redirection Q15 min safety rounds Response: Received patient sleeping at shift change, pt woke and made his bed to attend breakfast. Pt was compliant with medication. Pt had no behaviors, no outbursts or did not require redirection. Pts mom came to visit, and visit went well. Pt ambulated halls listening to headphones. Pt did not appear to be responding to internal stimuli. Plan: Pt is conserved and awaiting placement.
[2023-01-11] MEDS: LORazepam 1 MG tablet PO PRN (18:26)
[2023-01-11 20:07] VITALS: BP 146/69; PULSE 82; RESP 15; TEMP 97.5; O2SAT 98
[2023-01-11] MEDS: OLANZAPINE 5 MG TABLET PO SCH (20:51)
--- NOTE | 2023-01-12 00:35 | NUR ---
NURSING PROGRESS NOTE Problem: Pt admitted on 515 for DTO from our ER. Pt reported that he constantly has thoughts of killing people. He does not know where he can live. He is homeless, does not eat and not wearing shoes. Pt has history of Schizophrenia, bipolar, anxiety, antisocial. Interventions: One to one with patient to assess mood, administered medication as ordered with no adverse side effects, monitored behaviors, provided safe and supportive environment, encouraged participation in unit activities, orient to reality as needed, redirection Q15 min safety rounds Response: Received patient awake walking lion with headphones. Pt requested his night time medications. PRN Ativan was administered as it was too early for night meds. Pt was overheard on the phone talking about phone tapping and the [employer]. Pt took his medication, ate his snack then went to bed. No other behaviors. Plan: Pt is conserved and awaiting placement.
[2023-01-12 07:35] VITALS: BP 116/58; PULSE 67; RESP 14; TEMP 98; O2SAT 98
[2023-01-12] MEDS: busPIRone 15mg tablet PO SCH ×3 (07:55→20:01)
[2023-01-12] MEDS: LORazepam 0.5 MG tablet PO SCH ×4 (07:55→20:01)
[2023-01-12] MEDS: docusate sod 100mg capsule PO SCH ×2 (07:56→20:01)
[2023-01-12] MEDS: OLANZapine 5mg rapidly disint. tablet PO SCH (07:56)
[2023-01-12] MEDS: quetiapine 100mg tablet PO SCH ×4 (07:56→20:01)
[2023-01-12] MEDS: multivitamins, therapeutics tablet PO SCH (07:57)
[2023-01-12] MEDS: NICOTINE POLACRILEX 2 MG LOZENGE BC PRN ×3 (08:29→16:11)
--- NOTE | 2023-01-12 16:45 | NUR ---
Nursing Progress Note: Problem: Pt admitted on 5150 for DTO from our ER. Pt reported that he constantly has thoughts of killing people. He does not know where he can live. He is homeless, does not eat and not wearing shoes. Pt has history of Schizophrenia, bipolar, anxiety & anti-social. Interventions: Interventions: Provide medication administration & medication management; Maintained a safe & supportive environment; Clear & simple instructions; Direction & encouragement regarding performance of ADLs; monitored behaviors & maintained clear boundaries; Patient physical assessment & 1:1 patient interview; Therapeutic conversation & active listening; Patient education & monitoring. Response: Patient was woke up at approximately 0755 for medication administration and informed that breakfast was being served in the Community Room. Patient immediately got dressed and went to the Community Room and quickly ate breakfast then returned to his room. Patient Assessment & Interview was conducted and patient laid down to rest after ambulating multiple laps in the hallway with another peer. Patient has not made any comments regarding homicidal ideation, and has been pleasant, respectful and kind. Patient ambulated multiple laps this afternoon while wearing the headset and drinking lots of H20. Will continue to monitor the patient for any needs he may have. Plan: Pt is conserved and awaiting placement.
[2023-01-12 18:26] VITALS: RESP 14; O2SAT 98
[2023-01-12] MEDS: OLANZAPINE 5 MG TABLET PO SCH (20:01)
[2023-01-12 20:08] VITALS: BP 166/64; PULSE 90; RESP 18; TEMP 97.7; O2SAT 97
--- NOTE | 2023-01-12 22:52 | NUR ---
Nursing Progress Note: Problem: Pt admitted on 5150 for DTO from our ER. Pt reported that he constantly has thoughts of killing people. He does not know where he can live. He is homeless, does not eat and not wearing shoes. Pt has history of Schizophrenia, bipolar, anxiety & anti-social. Interventions: Interventions: Provide medication administration & medication management; Maintained a safe & supportive environment; Clear & simple instructions; Direction & encouragement regarding performance of ADLs; monitored behaviors & maintained clear boundaries; Patient physical assessment & 1:1 patient interview; Therapeutic conversation & active listening; Patient education & monitoring. Response: Pt was socializing with peers at change of shift. Pt is pleasant and cooperative, continues to be internally preoccupied talking to himself at times. Pt talked about cars he likes with staff and requested prn nicotine lozenge. Pt took HS meds and had snacks in the group room before going to bed. Plan: Pt is conserved and awaiting placement.
[2023-01-13 07:00] VITALS: RESP 16; O2SAT 98
[2023-01-13] MEDS: busPIRone 15mg tablet PO SCH ×3 (07:23→20:01)
[2023-01-13] MEDS: LORazepam 0.5 MG tablet PO SCH ×4 (07:23→20:01)
[2023-01-13] MEDS: quetiapine 100mg tablet PO SCH ×4 (07:23→20:01)
[2023-01-13] MEDS: multivitamins, therapeutics tablet PO SCH (07:23)
[2023-01-13] MEDS: docusate sod 100mg capsule PO SCH ×2 (07:24→20:01)
[2023-01-13] MEDS: OLANZapine 5mg rapidly disint. tablet PO SCH (07:24)
[2023-01-13 07:43] VITALS: BP 154/73; PULSE 74; RESP 16; TEMP 97.5; O2SAT 98
[2023-01-13] MEDS: NICOTINE POLACRILEX 2 MG LOZENGE BC PRN ×2 (11:47→14:54)
--- NOTE | 2023-01-13 15:35 | NUR ---
Therapeutic group. Client attended group. Group focused on creating cards for loved ones, or simply a card to yourself, an art project. Client spent the time chatting with [facility] nursing students. Client's thought content was linear. Client was clam and pleasant to work with. This television writer noted client was drawn to older male student, and talked to this occupational health nursing director at length.
--- NOTE | 2023-01-13 16:32 | NUR ---
Nursing Progress Note: Chan Problem: Currently on LPS awaiting placement. Orig. admit 10/10/22 d/t GD, homeless and unable to formulate a viable plan for snf and food, with homicidal ideations constantly. Pt has history of Schizophrenia, bipolar, anxiety, antisocial. Interventions: Medication administration, 1:1 MH assessment, maintained a safe and supportive environment, provided clear and simple instructions, provided encouragement regarding performance of ADLs, monitored behaviors and maintained clear boundaries, maintained Q15 minute safety checks. Response: Pt. received asleep and awoke for coffee, he then attended breakfast and took his medications without hesitation. He walked around the unit with other male cohorts and listening to headphones. Pt. presents as approachable, but can be heard discussing past time spent in senior living. He denies SI, HI, AH, VH with DC plan pending placement. Ate all meals in the main dining room often observed socializing. He is a tall young man with short hair, has good hygiene, and wears street clothes. Requested PRN Nicotine lozenges throughout the shift, and MOM for constipation. Plan: Crisis interruption and stabilization in a safe and therapeutic environment, pending placement.
[2023-01-13 18:35] VITALS: RESP 16; O2SAT 98
[2023-01-13 19:25] VITALS: BP 132/75; PULSE 101; RESP 18; TEMP 98.1; O2SAT 98
[2023-01-13] MEDS: OLANZAPINE 5 MG TABLET PO SCH (20:01)
--- NOTE | 2023-01-13 21:18 | NUR ---
Nursing Progress Note: Chan Problem: Currently on LPS awaiting placement. Orig. admit 10/10/22 d/t GD, homeless and unable to formulate a viable plan for intermediate and food, with homicidal ideations constantly. Pt has history of Schizophrenia, bipolar, anxiety, antisocial. Interventions: Medication administration, 1:1 MH assessment, maintained a safe and supportive environment, provided clear and simple instructions, provided encouragement regarding performance of ADLs, monitored behaviors and maintained clear boundaries, maintained Q15 minute safety checks. Response: Pt was in his room at change of shift listening to head phones. Pt is polite cooperative, says "Thank you" often. Pt is friendly with peers and socialized during the evening. Pt is pleasant denies a/vh, but appears to be internally preoccupied. Pt had a snack and took HS meds, went to bed shortly after med pass. Plan:Crisis interruption and stabilization in a safe and therapeutic environment, pending placement.
[2023-01-14 07:00] VITALS: RESP 16; O2SAT 95
[2023-01-14] MEDS: OLANZapine 5mg rapidly disint. tablet PO SCH (07:34)
[2023-01-14] MEDS: docusate sod 100mg capsule PO SCH ×2 (07:34→20:37)
[2023-01-14] MEDS: busPIRone 15mg tablet PO SCH ×3 (07:35→20:38)
[2023-01-14] MEDS: quetiapine 100mg tablet PO SCH ×4 (07:35→20:39)
[2023-01-14] MEDS: multivitamins, therapeutics tablet PO SCH (07:35)
[2023-01-14] MEDS: LORazepam 0.5 MG tablet PO SCH ×4 (07:35→20:38)
[2023-01-14 08:00] VITALS: BP 124/56; PULSE 86; RESP 16; TEMP 98.2; O2SAT 98
[2023-01-14] MEDS: NICOTINE POLACRILEX 2 MG LOZENGE BC PRN ×2 (12:56→15:49)
[2023-01-14 15:03] LABS: HEPATITIS C PCR QUANTITATIVE Not Dectected
--- NOTE | 2023-01-14 17:01 | NUR ---
Nursing Progress Note: Chan Problem: Currently on LPS awaiting placement. Orig. admit 10/10/22 d/t GD, homeless and unable to formulate a viable plan for nursing home and food, with homicidal ideations constantly. Pt has history of Schizophrenia, bipolar, anxiety, antisocial. Interventions: Medication administration, 1:1 MH assessment, maintained a safe and supportive environment, provided clear and simple instructions, provided encouragement regarding performance of ADLs, monitored behaviors and maintained clear boundaries, maintained Q15 minute safety checks. Response: Pt. received awake walking around the unit. . He took his medications without hesitation, and presents as calm and social able. He denies SI, HI, AH, VH and finding placement is DC plan. He attended some part of group and sat with nursing students for extended period of time, no verbalized grandiose statements made. Pt. was found napping before lunch, then proceeded to get ready to eat, Pt. ate all meals in the dining area with cohorts, he is often observed sitting alone, but engages socially. He requested PRN nicotine lozenges throughout the shift. He is cooperative and polite and interacts with others well. Pt. is well groomed, has good hygiene, and wears street clothes. Plan: Crisis interruption and stabilization in a safe and therapeutic environment, pending placement.
[2023-01-14 19:00] VITALS: RESP 16; O2SAT 98
[2023-01-14 20:00] VITALS: BP 129/75; PULSE 100; RESP 16; TEMP 97.1; O2SAT 98
[2023-01-14] MEDS: OLANZAPINE 5 MG TABLET PO SCH (20:39)
--- NOTE | 2023-01-15 03:08 | NUR ---
Nursing Progress Note: Chan Problem: Currently on LPS awaiting placement. Orig. admit 10/10/22 d/t GD, homeless and unable to formulate a viable plan for retirement and food, with homicidal ideations constantly. Pt has history of Schizophrenia, bipolar, anxiety, antisocial. Interventions: Medication administration, 1:1 MH assessment, maintained a safe and supportive environment, provided clear and simple instructions, provided encouragement regarding performance of ADLs, monitored behaviors and maintained clear boundaries, maintained Q15 minute safety checks. Response: Received Pt in hallway listening to headphones. Pt requested a drink and watched TV in community room. He was cooperative with vitals and HS meds and went to bed early, denying SI, HI, AH, VH at this time. Pt is overall pleasant and polite with staff. Plan: Crisis interruption and stabilization in a safe and therapeutic environment, pending placement.
[2023-01-15 07:00] VITALS: RESP 16; O2SAT 97
[2023-01-15] MEDS: quetiapine 100mg tablet PO SCH ×4 (07:02→20:20)
[2023-01-15] MEDS: busPIRone 15mg tablet PO SCH ×3 (07:02→20:20)
[2023-01-15] MEDS: multivitamins, therapeutics tablet PO SCH (07:02)
[2023-01-15] MEDS: docusate sod 100mg capsule PO SCH ×3 (07:02→20:20)
[2023-01-15] MEDS: OLANZapine 5mg rapidly disint. tablet PO SCH (07:02)
[2023-01-15] MEDS: NICOTINE POLACRILEX 2 MG LOZENGE BC PRN ×3 (07:02→16:07)
[2023-01-15] MEDS: LORazepam 0.5 MG tablet PO SCH ×4 (07:02→20:20)
[2023-01-15 07:19] VITALS: BP 117/56; PULSE 68; RESP 16; TEMP 98.8; O2SAT 97
[2023-01-15] MEDS: magnesium hydroxide 30ml (MOM) UD suspension PO PRN (10:09)
--- NOTE | 2023-01-15 15:34 | NUR ---
Therapeutic group. Client attended therapeutic group. Todays group focused on appropriate interpersonal communication by playing the Ungame boardgame. Clients hygiene and presentation WNL. Client was calm and pleasant to work with. Client talked about his favorite teacher and a principle in middle school who helped him extensively, and for which he remains grateful.
--- NOTE | 2023-01-15 16:28 | NUR ---
Nursing Progress Note: Chan Problem: Currently on LPS awaiting placement. Orig. admit 10/10/22 d/t GD, homeless and unable to formulate a viable plan for fpc and food, with homicidal ideations constantly. Pt has history of Schizophrenia, bipolar, anxiety, antisocial. Interventions: Medication administration, 1:1 MH assessment, maintained a safe and supportive environment, provided clear and simple instructions, provided encouragement regarding performance of ADLs, monitored behaviors and maintained clear boundaries, maintained Q15 minute safety checks. Response: Pt. received awake calm and walking around the unit. He took his medications without hesitation, and reported ongoing hard stools and current constipation; MOM was given and N.O received to increase DSS to 200mg BID, encouraged pt. to increase his fluid intake. He presents as calm and social able, and sat for hours in the community room working on learning the [employer]. He denies SI, HI, AH, VH and finding placement is the DC plan. Pt. ate all meals in the dining area with cohorts, often sitting in a chair with his tray on his lap. He requested PRN nicotine lozenges throughout the shift. He is cooperative and polite and interacts with others well. Pt. is well groomed, has good hygiene, and wears street clothes. Plan: Crisis interruption and stabilization in a safe and therapeutic environment, pending placement.
[2023-01-15 19:00] VITALS: BP 130/83; PULSE 100; RESP 14; TEMP 97.8; O2SAT 98
[2023-01-15] MEDS: OLANZAPINE 5 MG TABLET PO SCH (20:20)
--- NOTE | 2023-01-16 00:01 | NUR ---
Nursing Progress Note: Chan Problem: Currently on LPS awaiting placement. Orig. admit 10/10/22 d/t GD, homeless and unable to formulate a viable plan for mcc and food, with homicidal ideations constantly. Pt has history of Schizophrenia, bipolar, anxiety, antisocial. Interventions: Medication administration, 1:1 MH assessment, maintained a safe and supportive environment, provided clear and simple instructions, provided encouragement regarding performance of ADLs, monitored behaviors and maintained clear boundaries, maintained Q15 minute safety checks. Response: Received Pt in hallway listening to headphones requested nicotine lozenge. Pt states he had a good day and smiles at this RN. He was cooperative with vitals and HS meds, participated in snacks, and went to bed early, denying SI, HI, AH, VH at this time. Pt is overall pleasant and polite with staff. Plan: Crisis interruption and stabilization in a safe and therapeutic environment, pending placement.
[2023-01-16 07:00] VITALS: RESP 12; O2SAT 99
[2023-01-16 07:22] VITALS: BP 115/53; PULSE 77; RESP 12; TEMP 97.3; O2SAT 99
[2023-01-16] MEDS: busPIRone 15mg tablet PO SCH ×3 (07:24→19:39)
[2023-01-16] MEDS: quetiapine 100mg tablet PO SCH ×4 (07:24→19:40)
[2023-01-16] MEDS: docusate sod 100mg capsule PO SCH ×2 (07:24→19:39)
[2023-01-16] MEDS: LORazepam 0.5 MG tablet PO SCH ×4 (07:24→19:39)
[2023-01-16] MEDS: multivitamins, therapeutics tablet PO SCH (07:24)
[2023-01-16] MEDS: OLANZapine 5mg rapidly disint. tablet PO SCH (07:25)
--- NOTE | 2023-01-16 11:45 | NUR ---
CASE MANAGEMENT Ani from [facility] called for a MAR and 7 days of notes. She reports a facilty, which had previously declined client, is going to re-review. Ani's fax # is [phone]
--- NOTE | 2023-01-16 12:38 | NUR ---
Reassessment: Pt continues with mostly 100% PO intake of regular meals while receiving double protein TID and snacks meeting estimated nutrient needs. [facility] 01/15, receiving routine and PRN bowel care. No nutrition intervention at this time. Will continue to follow. Recommendations: 1. Continue regular diet; double eggs WB, double meat BIDLD 2. Routine bowel care 3. Weekly scaled wts Addendum: 01/16/23 at [address] Amended: Links added.
--- NOTE | 2023-01-16 15:12 | NUR ---
Nursing Progress Note: Problem: Pt admitted on 5150 for DTO from our ER. Pt reported that he constantly has thoughts of killing people. He does not know where he can live. He is homeless, does not eat and not wearing shoes. Pt has history of Schizophrenia, bipolar,anxiety,antisocial. Interventions: 1:1 assessment, therapeutic communication, active listening, medication administration/education/monitoring, behavior monitoring and intervention as needed; provided distraction, redirection, positive reinforcement, and Q15 minute safety checks. Response: Pt was up before breakfast walking in the hallway with a peer. Pt was pleasant and cooperative with medications. Pt continues to be polite and appropriate in his interactions with staff and peers. Pt listens to the radio headphones. Pt napped for short intervals periodically throughout the day. No unsafe behaviors noted. This RN did not hear the patient make any delusional statements today. Plan: Pt is conserved and awaiting placement.
--- NOTE | 2023-01-16 15:20 | NUR ---
CASE MANAGEMENT UPDATE Faxed client's JAN and last 7 days of notes. Rosario's fax # is [phone].
--- NOTE | 2023-01-16 15:28 | NUR ---
Therapeutic group. Client attended therapeutic group. Todays group focused on understanding learning styles, and--through that--learning what is therapeutic and most effective (visual learner, words, verbal, etc.). Each client made and shared a strength based word collage (poem), and then shared with group. Clients hygiene and presentation WNL. Client was calm and pleasant to work with. Client talked about phrases that get him through hard times: "This to shall pass." is one.
--- NOTE | 2023-01-16 15:36 | NUR ---
1:1 with client. Client took time out after group to say thank you to this casualty underwriter, and to show interest in this casualty underwriter. Client is particularly patient with a peer who can very hyper verbal and at times demanding of client's attention: This casualty underwriter has never seen him be anything but polite with this client. This casualty underwriter told client he is kind and calm. All peers at the table said the same. Client seemed surprised and pleased, saying, "Oh, thank you!"
[2023-01-16] MEDS: NICOTINE POLACRILEX 2 MG LOZENGE BC PRN ×2 (16:09→18:53)
[2023-01-16 19:00] VITALS: BP 135/66; PULSE 83; RESP 17; TEMP 97.8; O2SAT 100
[2023-01-16] MEDS: OLANZAPINE 5 MG TABLET PO SCH (19:40)
--- NOTE | 2023-01-17 00:53 | NUR ---
Nursing Progress Note: Chan Problem: Pt admitted on 5150 for DTO from our ER. Pt reported that he constantly has thoughts of killing people. He does not know where he can live. He is homeless, does not eat and not wearing shoes. Pt has history of Schizophrenia, bipolar,anxiety,antisocial. Interventions: 1:1 assessment, therapeutic communication, active listening, medication administration/education/monitoring, behavior monitoring and intervention as needed; provided distraction, redirection, positive reinforcement, and Q15 minute safety checks. Response: Pt up listening to headphones while pacing the unit. Pt pleasant and cooperative with care, requested nicotine lozenge. Pt states to this RN that he hears voices all the time and they are very characteristic and very condescending. They tell him how fucked up this is right now. Pt participated in snacks and took all HS medications without issue. Pt went to bed shortly after med pass. Plan: Pt is conserved and awaiting placement.
[2023-01-17] MEDS: NICOTINE POLACRILEX 2 MG LOZENGE BC PRN ×4 (06:10→20:41)
[2023-01-17 07:00] VITALS: RESP 17; O2SAT 100
[2023-01-17] MEDS: multivitamins, therapeutics tablet PO SCH (07:43)
[2023-01-17] MEDS: OLANZapine 5mg rapidly disint. tablet PO SCH (07:43)
[2023-01-17] MEDS: quetiapine 100mg tablet PO SCH ×4 (07:43→20:05)
[2023-01-17] MEDS: docusate sod 100mg capsule PO SCH ×2 (07:43→20:05)
[2023-01-17] MEDS: LORazepam 0.5 MG tablet PO SCH ×4 (07:43→20:05)
[2023-01-17] MEDS: busPIRone 15mg tablet PO SCH ×3 (07:43→20:05)
[2023-01-17 08:00] VITALS: BP 136/68; PULSE 73; RESP 16; TEMP 97.6; O2SAT 100
[2023-01-17] MEDS: magnesium hydroxide 30ml (MOM) UD suspension PO PRN (13:20)
--- NOTE | 2023-01-17 17:08 | NUR ---
PROGRESS NOTE Pt up walking unit with headphones on this AM, very cooperative and calm. AM meds administered with no issues. Pt showered per request, noted to continually pace unit with headphones on. Pt doing exercises in community room this afternoon to let off some steam.
[2023-01-17 19:00] VITALS: RESP 16; O2SAT 95
[2023-01-17 20:00] VITALS: BP 129/91; PULSE 80; RESP 16; TEMP 96.3; O2SAT 95
[2023-01-17] MEDS: OLANZAPINE 5 MG TABLET PO SCH (20:05)
--- NOTE | 2023-01-18 00:49 | NUR ---
Nursing Progress Note: Chan Problem: Pt admitted on 5150 for DTO from our ER. Pt reported that he constantly has thoughts of killing people. He does not know where he can live. He is homeless, does not eat and not wearing shoes. Pt has history of Schizophrenia, bipolar,anxiety,antisocial. Interventions: 1:1 assessment, therapeutic communication, active listening, medication administration/education/monitoring, behavior monitoring and intervention as needed; provided distraction, redirection, positive reinforcement, and Q15 minute safety checks. Response: Patient walking the lion wearing headphones at change of shift. Performs exercises throughout the shift. Socializes with peers in the community room . Continues making delusional statements about demons, the seven deadly sins. Attended evening snack. Denies SI/HI,AH/VH. Compliant with night medications. PRN nicotine lozenge provided. Observed and appears to be sleeping at this time. Plan: Pt is conserved and awaiting placement.
[2023-01-18 07:16] VITALS: BP 136/64; PULSE 83; RESP 16; TEMP 97.8; O2SAT 98
[2023-01-18] MEDS: docusate sod 100mg capsule PO SCH ×2 (07:42→20:15)
[2023-01-18] MEDS: NICOTINE POLACRILEX 2 MG LOZENGE BC PRN ×6 (07:42→20:48)
[2023-01-18] MEDS: busPIRone 15mg tablet PO SCH ×3 (07:42→20:15)
[2023-01-18] MEDS: LORazepam 0.5 MG tablet PO SCH ×4 (07:42→20:14)
[2023-01-18] MEDS: multivitamins, therapeutics tablet PO SCH (07:43)
[2023-01-18] MEDS: OLANZapine 5mg rapidly disint. tablet PO SCH (07:43)
[2023-01-18] MEDS: quetiapine 100mg tablet PO SCH ×4 (07:43→20:14)
--- NOTE | 2023-01-18 09:49 | NUR ---
Notified by dietary that pt is reportedly requesting single portions and no longer wants double protein. Patient's preferences will be honored. Addendum: 01/18/23 at [address] Mñu[address] RD Amended: Links added.
--- NOTE | 2023-01-18 17:07 | NUR ---
Nursing Progress Note: Problem: Pt admitted on 5150 for DTO from our ER. Pt reported that he constantly has thoughts of killing people. He does not know where he can live. He is homeless, does not eat and not wearing shoes. Pt has history of Schizophrenia, bipolar, anxiety & anti-social. Interventions: Interventions: Provide medication administration & medication management; Maintained a safe & supportive environment; Clear & simple instructions; Direction & encouragement regarding performance of ADLs; monitored behaviors & maintained clear boundaries; Patient physical assessment & 1:1 patient interview; Therapeutic conversation & active listening; Patient education & monitoring. Response: Patient woke up early and requested coffee at 0700. Patient ambulated multiple laps with a peer until breakfast was served at 0800. Patient ate his breakfast in the Community Room and took his morning medications. Patient laid down to rest in the morning then decided not to go outside when we offered him to go out to the patio at 1140. Patient wore headphones throughout most of the morning and afternoon, and ambulated the afternoon in the hallway. Patient did not require any prn medications today. Patient was not overheard making delusions statements throughout the day. Plan: Pt is conserved and awaiting placement.
[2023-01-18 19:00] VITALS: RESP 16; O2SAT 98
[2023-01-18] MEDS: OLANZAPINE 5 MG TABLET PO SCH (20:14)
[2023-01-18 20:59] VITALS: BP 125/75; PULSE 94; RESP 14; TEMP 97; O2SAT 98
--- NOTE | 2023-01-19 00:53 | NUR ---
Nursing Progress Note: Problem: Pt admitted on 5150 for DTO from our ER. Pt reported that he constantly has thoughts of killing people. He does not know where he can live. He is homeless, does not eat and not wearing shoes. Pt has history of Schizophrenia, bipolar, anxiety & anti-social. Interventions: Interventions: Provide medication administration & medication management; Maintained a safe & supportive environment; Clear & simple instructions; Direction & encouragement regarding performance of ADLs; monitored behaviors & maintained clear boundaries; Patient physical assessment & 1:1 patient interview; Therapeutic conversation & active listening; Patient education & monitoring. Response: received patient walking in the lion way at change of shift. Socializes in the community room w/peers. Spent time on the phone and overheard making delusional statements "rod ellish and HIV". "[facility] was sued for $20,000". Compliant with meds. Attended snack. Denies SI/HI, AH/VH. PRN nicotine lozenge provided. Appears to be sleeping at this time. Plan: Pt is conserved and awaiting placement.
[2023-01-19] MEDS: quetiapine 100mg tablet PO PRN (05:48)
[2023-01-19] MEDS: quetiapine 100mg tablet PO SCH ×4 (07:21→20:09)
[2023-01-19] MEDS: multivitamins, therapeutics tablet PO SCH (07:21)
[2023-01-19] MEDS: docusate sod 100mg capsule PO SCH ×2 (07:21→20:09)
[2023-01-19] MEDS: busPIRone 15mg tablet PO SCH ×3 (07:21→20:09)
[2023-01-19] MEDS: OLANZapine 5mg rapidly disint. tablet PO SCH (07:21)
[2023-01-19] MEDS: LORazepam 0.5 MG tablet PO SCH ×4 (07:21→20:09)
[2023-01-19] MEDS: NICOTINE POLACRILEX 2 MG LOZENGE BC PRN ×5 (07:24→19:03)
[2023-01-19 07:50] VITALS: BP 155/60; PULSE 79; RESP 18; TEMP 97.9; O2SAT 98
--- NOTE | 2023-01-19 17:11 | NUR ---
Nursing Progress Note: Problem: Pt admitted on 5150 for DTO from our ER. Pt reported that he constantly has thoughts of killing people. He does not know where he can live. He is homeless, does not eat and not wearing shoes. Pt has history of Schizophrenia, bipolar, anxiety & anti-social. Interventions: Interventions: Provide medication administration & medication management; Maintained a safe & supportive environment; Clear & simple instructions; Direction & encouragement regarding performance of ADLs; monitored behaviors & maintained clear boundaries; Patient physical assessment & 1:1 patient interview; Therapeutic conversation & active listening; Patient education & monitoring. Response: Received patient when he came to the door of the TV Room where the Nurses were stationed, and when this Iron Caster asked the patient How are you this morning? Patient answered I am very angry this morning. Patient was asked why he felt that way, but he did not elaborate on the subject. Patient took his morning medications at approximately 0800, and then started making multiple homicidal statements as well as statements regarding satanic religious. Patient had just received his Ativan and other medications then went to lie down on his bed and fell asleep by 0900 and had no other episodes relating to homicidal ideation. Patient was up ambulating in the hallways starting at snack time at 1100 and again this afternoon. Patient requested Nicotine Lozenges a few hours apart while ambulating in the hallway. Plan: Pt is conserved and awaiting placement.
[2023-01-19 19:00] VITALS: RESP 16; O2SAT 98
[2023-01-19 19:40] VITALS: BP 126/72; PULSE 91; RESP 16; TEMP 98; O2SAT 98
[2023-01-19] MEDS: OLANZAPINE 5 MG TABLET PO SCH (20:09)
--- NOTE | 2023-01-20 00:19 | NUR ---
Nursing Progress Note: Problem: Pt admitted on 5150 for DTO from our ER. Pt reported that he constantly has thoughts of killing people. He does not know where he can live. He is homeless, does not eat and not wearing shoes. Pt has history of Schizophrenia, bipolar, anxiety & anti-social. Interventions: Interventions: Provide medication administration & medication management; Maintained a safe & supportive environment; Clear & simple instructions; Direction & encouragement regarding performance of ADLs; monitored behaviors & maintained clear boundaries; Patient physical assessment & 1:1 patient interview; Therapeutic conversation & active listening; Patient education & monitoring. Response: Pt pleasant and cooperative with all care. He was kind to his his roommate who was constantly talking and moving around the room. Pt up on unit in halls listening to headphones, came to group room for snack. Pt denies all mental health symptoms. Not heard responding to internal stimuli this shift.. Plan: Pt is conserved and awaiting placement.
[2023-01-20 07:00] VITALS: RESP 16; O2SAT 96
[2023-01-20] MEDS: NICOTINE POLACRILEX 2 MG LOZENGE BC PRN ×5 (07:15→19:36)
[2023-01-20] MEDS: LORazepam 0.5 MG tablet PO SCH ×4 (07:31→19:59)
[2023-01-20] MEDS: busPIRone 15mg tablet PO SCH ×3 (07:31→19:58)
[2023-01-20] MEDS: docusate sod 100mg capsule PO SCH ×2 (07:31→19:59)
[2023-01-20] MEDS: multivitamins, therapeutics tablet PO SCH (07:31)
[2023-01-20] MEDS: OLANZapine 5mg rapidly disint. tablet PO SCH (07:31)
[2023-01-20] MEDS: quetiapine 100mg tablet PO SCH ×4 (07:34→19:59)
[2023-01-20 07:47] VITALS: BP 152/69; PULSE 85; RESP 16; TEMP 98.6; O2SAT 96
--- NOTE | 2023-01-20 16:58 | NUR ---
Nursing Progress Note: Problem: Pt admitted on 5150 for DTO from our ER. Pt reported that he constantly has thoughts of killing people. He does not know where he can live. He is homeless, does not eat and not wearing shoes. Pt has history of Schizophrenia, bipolar, anxiety & anti-social. Interventions: Interventions: Provide medication administration & medication management; Maintained a safe & supportive environment; Clear & simple instructions; Direction & encouragement regarding performance of ADLs; monitored behaviors & maintained clear boundaries; Patient physical assessment & 1:1 patient interview; Therapeutic conversation & active listening; Patient education & monitoring. Response: Received patient awake at change of shift. 1:1 done at bedside, medications administered with no issues. Pt attended both meals but did not attend group. Nicotine lozenge administered at 0715 and 1530. Pt has been polite and cooperative. Pt seen wearing facility headphones pacing the hallways and laughing to himself as well as pacing the hallways responding to internal stimuli, talking out loud to himself. Plan: Pt is conserved and awaiting placement.
[2023-01-20 19:30] VITALS: RESP 16; O2SAT 97
[2023-01-20 19:38] VITALS: BP 128/68; PULSE 90; RESP 16; TEMP 98.1; O2SAT 97
[2023-01-20] MEDS: OLANZAPINE 5 MG TABLET PO SCH (20:00)
--- NOTE | 2023-01-21 04:10 | NUR ---
Nursing Progress Note: Problem: Pt admitted on 5150 for DTO from our ER. Pt reported that he constantly has thoughts of killing people. He does not know where he can live. He is homeless, does not eat and not wearing shoes. Pt has history of Schizophrenia, bipolar, anxiety & anti-social. Interventions: Interventions: Provide medication administration & medication management; Maintained a safe & supportive environment; Clear & simple instructions; Direction & encouragement regarding performance of ADLs; monitored behaviors & maintained clear boundaries; Patient physical assessment & 1:1 patient interview; Therapeutic conversation & active listening; Patient education & monitoring. Response: Upon turn of shift noted patient sitting in room socializing with peers and tech. Pleasant, calm and cooperative. Expressed he wants protein shakes added to meals as he would like to gain 10-12 lbs of muscle. Proceeded to show this nurse what he can do by doing pull-ups, push-ups, biceps curls and ect. Noted patient to be sweating. Noted thoughts and speech to be clear in brief conversation. When asked about mood states, Shila been good. Denies SI, HI, and VH. Does admit to A/H. States he can distinguish between whats real (concerning the voices) and whats not. Admits to talking to himself in response to internal stimuli. Nurse did not visualize patient responding to internal stimuli this shift. Compliant with HS meds. PRN Nicotine lozenge given x 1 as requested. No odd behaviors noted. No c/o on this shift. Slept throughout the night. Will continue to monitor. Plan: Pt is conserved and awaiting placement.
[2023-01-21 07:00] VITALS: RESP 12; O2SAT 99
[2023-01-21 07:37] VITALS: BP 138/77; PULSE 88; RESP 12; TEMP 97.1; O2SAT 99
[2023-01-21] MEDS: docusate sod 100mg capsule PO SCH ×2 (07:40→20:18)
[2023-01-21] MEDS: busPIRone 15mg tablet PO SCH ×3 (07:40→20:18)
[2023-01-21] MEDS: quetiapine 100mg tablet PO SCH ×4 (07:41→20:18)
[2023-01-21] MEDS: multivitamins, therapeutics tablet PO SCH (07:41)
[2023-01-21] MEDS: LORazepam 0.5 MG tablet PO SCH ×4 (07:42→20:18)
[2023-01-21] MEDS: OLANZapine 5mg rapidly disint. tablet PO SCH (07:42)
[2023-01-21] MEDS: NICOTINE POLACRILEX 2 MG LOZENGE BC PRN ×6 (07:42→20:18)
--- NOTE | 2023-01-21 15:54 | NUR ---
Nursing Progress Note: Problem: Pt admitted on 5150 for DTO from our ER. Pt reported that he constantly has thoughts of killing people. He does not know where he can live. He is homeless, does not eat and not wearing shoes. Pt has history of Schizophrenia, bipolar, anxiety & anti-social. Interventions: Interventions: Provide medication administration & medication management; Maintained a safe & supportive environment; Clear & simple instructions; Direction & encouragement regarding performance of ADLs; monitored behaviors & maintained clear boundaries; Patient physical assessment & 1:1 patient interview; Therapeutic conversation & active listening; Patient education & monitoring. Response: Received pt. awake at change of shift walking the halls and working out in his room. At approx. 7am pt. was heard vomiting in his room. Pt denies any stomach upset and believes it was the amount of water he had just drank. 1:1 done at bedside and medications administered with no issues. Pt continues to endorse auditory hallucinations but denies hearing them this morning. Endorses S/HI stating, I think about killing myself and others all the time, its just normal. Denies having a plan. Nicotine lozenge administered X3. No further episodes of emesis. Plan: Pt is conserved and awaiting placement.
[2023-01-21 19:00] VITALS: BP 120/60; PULSE 104; RESP 16; TEMP 97.9; O2SAT 97
[2023-01-21] MEDS: OLANZAPINE 5 MG TABLET PO SCH (20:18)
--- NOTE | 2023-01-22 04:48 | NUR ---
Nursing Progress Note: Problem: Pt admitted on 5150 for DTO from our ER. Pt reported that he constantly has thoughts of killing people. He does not know where he can live. He is homeless, does not eat and not wearing shoes. Pt has history of Schizophrenia, bipolar, anxiety & anti-social. Interventions: Interventions: Provide medication administration & medication management; Maintained a safe & supportive environment; Clear & simple instructions; Direction & encouragement regarding performance of ADLs; monitored behaviors & maintained clear boundaries; Patient physical assessment & 1:1 patient interview; Therapeutic conversation & active listening; Patient education & monitoring. Response: Upon change of shift noted patient sitting up in the activity room watching TV. Requests to increase protein intake. Dietary consult placed to see if thats doable to help him build muscle. Asked if he attended group. He said he attended group but doesnt feel like group is for him when, all they do is color. Id much rather talk through situations and scenarios that can prepare me to real like. Pleasant, calm, and cooperative. 1:1 conversation was positive. Mood was good and giving great eye contact. Shared passionately about business ideas. Ate HS snack and went to room. Denies pain. No needs expressed. Denies SI, HI, and A/V H. Compliant with HS meds. PRN Nicotine lozenge given x 1. No odd behaviors. Will continue to monitor. Plan: Pt is conserved and awaiting placement.
[2023-01-22] MEDS: NICOTINE POLACRILEX 2 MG LOZENGE BC PRN ×4 (06:39→18:43)
[2023-01-22 06:57] VITALS: RESP 12; O2SAT 99
[2023-01-22] MEDS: OLANZapine 5mg rapidly disint. tablet PO SCH (07:03)
[2023-01-22] MEDS: busPIRone 15mg tablet PO SCH ×3 (07:03→20:08)
[2023-01-22] MEDS: docusate sod 100mg capsule PO SCH ×2 (07:03→20:08)
[2023-01-22] MEDS: quetiapine 100mg tablet PO SCH ×4 (07:03→20:07)
[2023-01-22] MEDS: multivitamins, therapeutics tablet PO SCH (07:03)
[2023-01-22] MEDS: LORazepam 0.5 MG tablet PO SCH ×4 (07:03→20:08)
--- NOTE | 2023-01-22 07:18 | NUR ---
Nutrition Consult "Pt would like to increase protein to gain muscle": Pt just asked to decrease protein portions to single portions 4 days ago. Dietary notified to send double eggs WB and double meat WS. Recommendations: 1. Continue regular diet; double eggs WB, double protein WS 2. Routine bowel care 3. Weekly scaled wts Addendum: 01/22/23 at [address] Amended: Links added.
[2023-01-22 08:00] VITALS: BP 142/94; PULSE 97; RESP 18; TEMP 97.7; O2SAT 99
--- NOTE | 2023-01-22 17:06 | NUR ---
Nursing Progress Note: Problem: Pt admitted on 5150 for DTO from our ER. Pt reported that he constantly has thoughts of killing people. He does not know where he can live. He is homeless, does not eat and not wearing shoes. Pt has history of Schizophrenia, bipolar, anxiety & anti-social. Interventions: Interventions: Provide medication administration & medication management; Maintained a safe & supportive environment; Clear & simple instructions; Direction & encouragement regarding performance of ADLs; monitored behaviors & maintained clear boundaries; Patient physical assessment & 1:1 patient interview; Therapeutic conversation & active listening; Patient education & monitoring. Response: Patient awake at shift change walking with headphones on. Says good morning when passing in hallway. Requests Nicotine lozenge sandy. Friendly and cooperative with staff. He eats breakfast and is compliant with AM meds. Patient is doing well. His mood is good and his symptoms are managed. He occasionally laughs at inappropriate times, but there are no outbursts. He paces a lot with headphones on. Patient wants a nicotine lozenge now and then, but otherwise hes doing well while he waits for placement. Plan: Pt is conserved and awaiting placement.
[2023-01-22] MEDS: quetiapine 100mg tablet PO PRN (18:50)
[2023-01-22] MEDS: LORazepam 1 MG tablet PO PRN (18:50)
[2023-01-22 19:00] VITALS: BP 136/71; PULSE 88; RESP 16; RESP 18; TEMP 98.2; O2SAT 98
[2023-01-22] MEDS: OLANZAPINE 5 MG TABLET PO SCH (20:07)
--- NOTE | 2023-01-23 04:32 | NUR ---
Nursing Progress Note: Problem: Pt admitted on 5150 for DTO from our ER. Pt reported that he constantly has thoughts of killing people. He does not know where he can live. He is homeless, does not eat and not wearing shoes. Pt has history of Schizophrenia, bipolar, anxiety & anti-social. Interventions: Interventions: Provide medication administration & medication management; Maintained a safe & supportive environment; Clear & simple instructions; Direction & encouragement regarding performance of ADLs; monitored behaviors & maintained clear boundaries; Patient physical assessment & 1:1 patient interview; Therapeutic conversation & active listening; Patient education & monitoring. Response: Patient came right up to nurse after shift change asking for a nicotine lozenge. Patient then began to actively responding to internal stimuli yelling that he wont bow down to it and that it doesnt have control over him anymore. Patient was given prn Seroquel and Ativan to help him calm down. Patient took medication without issue and retuned to pacing halls while listening to headphone. Patient requested his double meal be returned to just one serving. Patient also wants is bus par and Zyprexa to be increased to him stating they are not having enough of an effect on stabilizing his mood. Patient continued to pace until until snack. After taking prns patient didnt have any louder outburst during shift. Patient participated in snack and took all scheduled night medications before going to bed. Plan: Pt is conserved and awaiting placement.
[2023-01-23 07:00] VITALS: RESP 16; O2SAT 99
[2023-01-23 08:00] VITALS: BP 166/59; PULSE 82; RESP 16; TEMP 98.8; O2SAT 99
[2023-01-23] MEDS: multivitamins, therapeutics tablet PO SCH (08:05)
[2023-01-23] MEDS: docusate sod 100mg capsule PO SCH ×2 (08:05→20:28)
[2023-01-23] MEDS: busPIRone 15mg tablet PO SCH ×3 (08:05→20:25)
[2023-01-23] MEDS: LORazepam 0.5 MG tablet PO SCH ×4 (08:05→20:29)
[2023-01-23] MEDS: OLANZapine 5mg rapidly disint. tablet PO SCH (08:06)
[2023-01-23] MEDS: quetiapine 100mg tablet PO SCH ×4 (08:07→20:30)
[2023-01-23] MEDS: NICOTINE POLACRILEX 2 MG LOZENGE BC PRN ×4 (08:11→18:02)
[2023-01-23] MEDS: LORazepam 1 MG tablet PO PRN ×2 (11:00→18:28)
[2023-01-23] MEDS: quetiapine 100mg tablet PO PRN ×2 (11:00→18:29)
[2023-01-23] MEDS: magnesium hydroxide 30ml (MOM) UD suspension PO PRN (15:58)
--- NOTE | 2023-01-23 16:03 | NUR ---
Nursing Progress Note: Problem: Pt admitted on 5150 for DTO from our ER. Pt reported that he constantly has thoughts of killing people. He does not know where he can live. He is homeless, does not eat and not wearing shoes. Pt has history of Schizophrenia, bipolar,anxiety,antisocial. Interventions: 1:1 assessment, therapeutic communication, active listening, medication administration/education/monitoring, behavior monitoring and intervention as needed; provided distraction, redirection, positive reinforcement, and Q15 minute safety checks. Response: Pt was up before breakfast pacing in the lion while socializing with his roommate. Pt was hyperverbal and animated at times. Pt did make some delusional statements of a persecutory nature around past medical procedures he had done in the past including having steroids injected in his back that had supervisor intermediates side effects. Pt is religiously preoccupied at times and enjoys talking about the Satanic anabaptist as well as the Bible. Pt appears restless and anxious at times. He requested PRN Ativan 1 mg and Seroquel 100 mg given at 1100 with good effect. Pt napped for a couple of hours after lunch. Pt requested PRN Milk of Magnesia at 1558. Pt requests nicotine lozenges throughout the day. Plan: Pt is conserved and awaiting placement.
[2023-01-23 19:00] VITALS: RESP 18; O2SAT 98
[2023-01-23 19:24] VITALS: BP 128/62; PULSE 100; RESP 18; TEMP 97.7; O2SAT 98
[2023-01-23] MEDS: OLANZAPINE 5 MG TABLET PO SCH (20:29)
--- NOTE | 2023-01-24 03:17 | NUR ---
READING TEACHER documentation: I have reviewed and agree with all interventions, assessments performed and documented by Rigo Bill
--- NOTE | 2023-01-24 03:44 | NUR ---
Nursing Progress Note: Problem: Pt admitted on 5150 for DTO from our ER. Pt reported that he constantly has thoughts of killing people. He does not know where he can live. He is homeless, does not eat and not wearing shoes. Pt has history of Schizophrenia, bipolar,anxiety,antisocial. Interventions: 1:1 assessment, therapeutic communication, active listening, medication administration/education/monitoring, behavior monitoring and intervention as needed; provided distraction, redirection, positive reinforcement, and Q15 minute safety checks. Response: Patient was received pacing hallway listening to music at beginning of shift. Patient came rigt up to nurse asking for prn Ativan and Seroquel to help with anxiety and the loud voices in his head. Patient was given medications and retuned to pacing. After snack patient retuned to bed. Nurse had to wake up patient to give night medications. Patient took all night medications without issue and retuned to sleep. Plan: Pt is conserved and awaiting placement.
[2023-01-24 07:00] VITALS: RESP 16; O2SAT 99
[2023-01-24] MEDS: OLANZapine 5mg rapidly disint. tablet PO SCH (07:26)
[2023-01-24] MEDS: busPIRone 15mg tablet PO SCH ×3 (07:26→20:00)
[2023-01-24] MEDS: NICOTINE POLACRILEX 2 MG LOZENGE BC PRN ×5 (07:26→19:03)
[2023-01-24] MEDS: docusate sod 100mg capsule PO SCH ×2 (07:26→19:58)
[2023-01-24] MEDS: multivitamins, therapeutics tablet PO SCH (07:26)
[2023-01-24] MEDS: LORazepam 0.5 MG tablet PO SCH ×4 (07:26→19:59)
[2023-01-24] MEDS: quetiapine 100mg tablet PO SCH ×4 (07:26→19:59)
[2023-01-24 08:00] VITALS: BP 125/76; PULSE 95; RESP 16; TEMP 97.8; O2SAT 99
[2023-01-24] MEDS: LORazepam 1 MG tablet PO PRN ×2 (09:29→19:03)
--- NOTE | 2023-01-24 15:59 | NUR ---
Nursing Progress Note: Problem: Pt admitted on 5150 for DTO from our ER. Pt reported that he constantly has thoughts of killing people. He does not know where he can live. He is homeless, does not eat and not wearing shoes. Pt has history of Schizophrenia, bipolar,anxiety,antisocial. Interventions: 1:1 assessment, therapeutic communication, active listening, medication administration/education/monitoring, behavior monitoring and intervention as needed; provided distraction, redirection, positive reinforcement, and Q15 minute safety checks. Response: Pt was up before breakfast pacing in the hallway. Pt was cooperative with his medications. Pt requested a nicotine lozenge before breakfast. Pt appeared restless and anxious, pt requested a PRN for anxiety after breakfast and was given Ativan 1 mg at 0929 with good effect. Pt asked for nicotine lozenges at intervals throughout the day. Pt attended group. Pt was observed being helpful and polite with the older female patients. He helped one dial the cordless phone and pushed a w/c bound resident to the dining room. Pt has had no behavioral issues this shift and this RN has not heard him make any delusional statements. Plan: Pt is conserved and awaiting placement.
[2023-01-24] MEDS: quetiapine 100mg tablet PO PRN (16:52)
[2023-01-24 19:00] VITALS: RESP 18; O2SAT 98
[2023-01-24 19:48] VITALS: BP 144/72; PULSE 93; RESP 18; TEMP 97.6; O2SAT 98
[2023-01-24] MEDS: OLANZAPINE 5 MG TABLET PO SCH (19:59)
--- NOTE | 2023-01-25 04:44 | NUR ---
Nursing Progress Note: Problem: Pt admitted on 5150 for DTO from our ER. Pt reported that he constantly has thoughts of killing people. He does not know where he can live. He is homeless, does not eat and not wearing shoes. Pt has history of Schizophrenia, bipolar,anxiety,antisocial. Interventions: 1:1 assessment, therapeutic communication, active listening, medication administration/education/monitoring, behavior monitoring and intervention as needed; provided distraction, redirection, positive reinforcement, and Q15 minute safety checks. Response: Patient received pacing halls socializing with roommate at beginning of shift. Patient then came up to nurse asking for prn for anxiety and nicotine lozenge. Patient took all prns and retuned to pacing unit. Patient asked for night medications early since the voices were bothering him and he just wanted to go to bed. Patient patiently waited for scheduled night meds then got in line for snack. After participating in snack patient went to bed. Plan: Pt is conserved and awaiting placement.
[2023-01-25] MEDS: quetiapine 100mg tablet PO PRN (05:59)
[2023-01-25] MEDS: OLANZapine 5mg rapidly disint. tablet PO SCH (07:20)
[2023-01-25] MEDS: LORazepam 0.5 MG tablet PO SCH ×4 (07:20→20:05)
[2023-01-25] MEDS: docusate sod 100mg capsule PO SCH ×2 (07:20→20:04)
[2023-01-25] MEDS: busPIRone 15mg tablet PO SCH ×3 (07:20→20:05)
[2023-01-25] MEDS: multivitamins, therapeutics tablet PO SCH (07:21)
[2023-01-25] MEDS: NICOTINE POLACRILEX 2 MG LOZENGE BC PRN ×5 (07:21→18:06)
[2023-01-25] MEDS: quetiapine 100mg tablet PO SCH ×4 (07:21→20:05)
[2023-01-25 08:00] VITALS: BP 122/72; PULSE 92; RESP 16; TEMP 97.8; O2SAT 97
--- NOTE | 2023-01-25 17:26 | NUR ---
Nursing Progress Note: Problem: Pt admitted on 5150 for DTO from our ER. Pt reported that he constantly has thoughts of killing people. He does not know where he can live. He is homeless, does not eat and not wearing shoes. Pt has history of Schizophrenia, bipolar, anxiety & anti-social. Interventions: Provide medication administration & medication management; Maintained a safe & supportive environment; Clear & simple instructions; Direction & encouragement regarding performance of ADLs; monitored behaviors & maintained clear boundaries; Patient physical assessment & 1:1 patient interview; Therapeutic conversation & active listening; Patient education & monitoring. Response: Visualized patient awake and on the unit ambulating in the hallways at approximately 0515. Went to the Report Room and received the patient at 0630 when he was observed ambulating in the hallways at that time and informed this Oncologist that he would like his morning medication and a Nicotine patch right away. Informed the patient the earliest that I could administer his 0800 medications was at 0700. Patient took his prescribed medications without hesitation along with a Nicotine Lozenge. Patient was pleasant, kind and cooperative. Patient did multiple pull up, push-ups and other strenuous exercises from 0645 to 0715 then ate his breakfast. Patient wore a headset most of the day then after lunch laid down for a nap. Plan: Pt is conserved and awaiting placement.
[2023-01-25 19:34] VITALS: BP 141/85; PULSE 92; RESP 18; TEMP 97; O2SAT 97
[2023-01-25] MEDS: OLANZAPINE 5 MG TABLET PO SCH (20:04)
[2023-01-25 21:16] VITALS: RESP 18; O2SAT 97
--- NOTE | 2023-01-26 00:23 | NUR ---
Nursing Progress Note: Problem: Pt admitted on 5150 for DTO from our ER. Pt reported that he constantly has thoughts of killing people. He does not know where he can live. He is homeless, does not eat and not wearing shoes. Pt has history of Schizophrenia, bipolar, anxiety & anti-social. Interventions: Provide medication administration & medication management; Maintained a safe & supportive environment; Clear & simple instructions; Direction & encouragement regarding performance of ADLs; monitored behaviors & maintained clear boundaries; Patient physical assessment & 1:1 patient interview; Therapeutic conversation & active listening; Patient education & monitoring. Response: Pt awake at start of shift. Walking in halls talking with another pt, at times wearing headphones. Pt asked immediately about Seroquel, educated on HS meds pt verbalized understanding. Pt is pleasant and cooperative denies SI, A/V/H. At times makes delusional statements to other pts in direct conversation with staff pt is organized and oriented. Pt took all meds and went to sleep. Plan: Pt is conserved and awaiting placement.
[2023-01-26] MEDS: NICOTINE POLACRILEX 2 MG LOZENGE BC PRN ×5 (06:41→18:20)
[2023-01-26] MEDS: quetiapine 100mg tablet PO SCH ×4 (07:21→20:19)
[2023-01-26] MEDS: LORazepam 0.5 MG tablet PO SCH ×4 (07:21→20:18)
[2023-01-26] MEDS: busPIRone 15mg tablet PO SCH ×3 (07:21→20:18)
[2023-01-26] MEDS: docusate sod 100mg capsule PO SCH ×2 (07:21→19:18)
[2023-01-26] MEDS: OLANZapine 5mg rapidly disint. tablet PO SCH (07:22)
[2023-01-26] MEDS: multivitamins, therapeutics tablet PO SCH (07:22)
[2023-01-26 08:00] VITALS: BP 108/52; PULSE 72; RESP 16; TEMP 98.1; O2SAT 98
--- NOTE | 2023-01-26 08:36 | NUR ---
F/u 01/26: Pt continues with mostly 100% PO intake of regular meals while receiving double protein BIDBD and snacks meeting estimated nutrient needs. LBM 01/24 per EMR. No nutrition intervention at this time. Will continue to follow. Recommendations: 1. Continue regular diet; double eggs WB, double protein WS 2. Routine bowel care 3. Weekly scaled wts Addendum: 01/26/23 at [address] Amended: Links added.
[2023-01-26] MEDS: LORazepam 1 MG tablet PO PRN ×2 (13:14→19:18)
--- NOTE | 2023-01-26 13:29 | NUR ---
Sent updated noted notes to [facility] office (01/18/23-01/25/23). MARIA LUISA Villeda
--- NOTE | 2023-01-26 17:13 | NUR ---
Nursing Progress Note: Problem: Pt admitted on 5150 for DTO from our ER. Pt reported that he constantly has thoughts of killing people. He does not know where he can live. He is homeless, does not eat and not wearing shoes. Pt has history of Schizophrenia, bipolar, anxiety & anti-social. Interventions: Provide medication administration & medication management; Maintained a safe & supportive environment; Clear & simple instructions; Direction & encouragement regarding performance of ADLs; monitored behaviors & maintained clear boundaries; Patient physical assessment & 1:1 patient interview; Therapeutic conversation & active listening; Patient education & monitoring. Response: Patient was awake again early this morning and ambulating laps on the unit. Patient received his morning medications at approximately 0715 and continued to exercise in the Community Room. Patient has not made any [facility] comments throughout today. Patient attended the Group Meeting at 11:30 and participated in snacks. Patient watched TV with peers and bid his roommate goodgracee. Patient took his medications as ordered by the MD, and received Ativan x1 as a prn medication. Plan: Pt is conserved and awaiting placement.
[2023-01-26 19:00] VITALS: RESP 16; O2SAT 96
[2023-01-26 20:00] VITALS: BP 112/67; PULSE 81; RESP 16; TEMP 97.9; O2SAT 96
[2023-01-26] MEDS: OLANZAPINE 5 MG TABLET PO SCH (20:18)
--- NOTE | 2023-01-27 02:00 | NUR ---
Nursing Progress Note: Problem: Pt admitted on 5150 for DTO from our ER. Pt reported that he constantly has thoughts of killing people. He does not know where he can live. He is homeless, does not eat and not wearing shoes. Pt has history of Schizophrenia, bipolar, anxiety & anti-social. Interventions: Provide medication administration & medication management; Maintained a safe & supportive environment; Clear & simple instructions; Direction & encouragement regarding performance of ADLs; monitored behaviors & maintained clear boundaries; Patient physical assessment & 1:1 patient interview; Therapeutic conversation & active listening; Patient education & monitoring. Response: Upon turn of shift noted patient up walking halls. Requested an Ativan from nurse. Reports having anxiety and unsure what caused it. Encouraged non-pharmaceutical methods while he waits for meds such as deep breathing. Pleasant, calm and cooperative. When asked about his mood reports that hes fine. Denies SI, HI, and A/VH. Not seen responding to internal stimuli. Speech and thoughts clear. Compliant with HS meds. PRN Ativan given this shift. VS stable. Slept well this shift. Will continue to monitor. Plan: Pt is conserved and awaiting placement.
[2023-01-27] MEDS: NICOTINE POLACRILEX 2 MG LOZENGE BC PRN ×5 (06:39→18:43)
[2023-01-27] MEDS: quetiapine 100mg tablet PO SCH ×4 (07:16→20:40)
[2023-01-27] MEDS: OLANZapine 5mg rapidly disint. tablet PO SCH (07:17)
[2023-01-27] MEDS: busPIRone 15mg tablet PO SCH ×3 (07:17→20:41)
[2023-01-27] MEDS: docusate sod 100mg capsule PO SCH ×2 (07:17→20:41)
[2023-01-27] MEDS: multivitamins, therapeutics tablet PO SCH (07:17)
[2023-01-27] MEDS: LORazepam 0.5 MG tablet PO SCH ×4 (07:17→20:41)
[2023-01-27 08:00] VITALS: BP 122/71; PULSE 80; RESP 16; TEMP 97.9; O2SAT 100
--- NOTE | 2023-01-27 17:11 | NUR ---
Nursing Progress Note: Problem: Pt admitted on 5150 for DTO from our ER. Pt reported that he constantly has thoughts of killing people. He does not know where he can live. He is homeless, does not eat and not wearing shoes. Pt has history of Schizophrenia, bipolar, anxiety & anti-social. Interventions: Provide medication administration & medication management; Maintained a safe & supportive environment; Clear & simple instructions; Direction & encouragement regarding performance of ADLs; monitored behaviors & maintained clear boundaries; Patient physical assessment & 1:1 patient interview; Therapeutic conversation & active listening; Patient education & monitoring. Response: Patient appears much more comfortable and relaxed today as compared to day shift yesterday. Patient slept until 0730, when the past week he was getting up at [id number] each day. Patient took his medications without hesitation and received a Nicotine Lozenge approximately every 2 hours. Patient ambulated with peers and slept after breakfast until snack time then rested in bed for about one hour after lunch and then was up watching TV in the TV room as well as exercising. Patient was pleasant and cooperative throughout the day, and there were no comments made by the patient regarding satanic [employer] or homicidal ideation. Plan: Pt is conserved and awaiting placement.
[2023-01-27] MEDS: LORazepam 1 MG tablet PO PRN (18:43)
[2023-01-27] MEDS: quetiapine 100mg tablet PO PRN (18:43)
[2023-01-27 19:00] VITALS: RESP 16; O2SAT 97
[2023-01-27 20:00] VITALS: BP 127/66; PULSE 98; RESP 16; TEMP 97.2; O2SAT 97
[2023-01-27] MEDS: OLANZAPINE 5 MG TABLET PO SCH (20:41)
--- NOTE | 2023-01-27 22:33 | NUR ---
Nursing Progress Note: Problem: Pt admitted on 5150 for DTO from our ER. Pt reported that he constantly has thoughts of killing people. He does not know where he can live. He is homeless, does not eat and not wearing shoes. Pt has history of Schizophrenia, bipolar, anxiety & anti-social. Interventions: The patient is on q 15 minute safety checks. One to one with the patient to assess for severity of thought disorder. Patient given requested PRN medications Seroquel and Ativan after change of shift. Assessed for medication side effects. Response: The patient has been up on the unit. Periodically doing pushups on his door. He was pleasant when approached for the evening assessment. He stated that he was wanting his medications changed and the times changed and he was encouraged to bring those concerns/requests up with his MD tomorrow. He was medications compliant. He denies medication side effects. He stated that his anxiety was high 7/10. He reports voices that are condescending, correcting and commenting on what he is doing. He states at other times the voices are just background noise. He denies depression but added, "I get more problems with anger" He stated that he has been sleeping good. Plan: Continue hospitalization. Assess q shift for severity of thought disorder. Provide medications as ordered and evaluated for side effects and provide mediation education.
[2023-01-28 07:00] VITALS: RESP 16; O2SAT 98
[2023-01-28] MEDS: NICOTINE POLACRILEX 2 MG LOZENGE BC PRN ×5 (07:04→18:34)
[2023-01-28] MEDS: quetiapine 100mg tablet PO SCH ×4 (07:26→20:15)
[2023-01-28] MEDS: LORazepam 0.5 MG tablet PO SCH ×4 (07:27→20:14)
[2023-01-28] MEDS: multivitamins, therapeutics tablet PO SCH (07:27)
[2023-01-28] MEDS: docusate sod 100mg capsule PO SCH ×2 (07:27→20:14)
[2023-01-28] MEDS: busPIRone 15mg tablet PO SCH ×3 (07:27→20:14)
[2023-01-28] MEDS: OLANZapine 5mg rapidly disint. tablet PO SCH (07:27)
[2023-01-28 08:00] VITALS: BP 120/63; PULSE 88; RESP 16; TEMP 98.3; O2SAT 98
[2023-01-28] MEDS: quetiapine 100mg tablet PO PRN ×3 (08:20→18:57)
[2023-01-28] MEDS: LORazepam 1 MG tablet PO PRN ×2 (08:20→14:21)
--- NOTE | 2023-01-28 17:13 | NUR ---
Nursing Progress Note: Chan Problem: Currently on LPS awaiting placement. Orig. admit 10/10/22 d/t GD, homeless and unable to formulate a viable plan for care home and food, with homicidal ideations constantly. Pt has history of Schizophrenia, bipolar, anxiety, antisocial. Interventions: Medication administration, 1:1 MH assessment, maintained a safe and supportive environment, provided clear and simple instructions, provided encouragement regarding performance of ADLs, monitored behaviors and maintained clear boundaries, maintained Q15 minute safety checks. Response: Pt. received awake walking around the unit. He approached this principal technical writer at 0645 requesting Ativan and Seroquel; routine meds administered which also contained Ativan and Seroquel. He takes his medications without hesitancy and denies SI, HI, AH,VH but reports feeling so anxious Pt. returned to this principal technical writer at 0815 reporting unchanged anxiety levels. PRN Ativan and Seroquel given with good results. Pt. reports his bowels have improved and no longer suffers from chronic constipation. He spent most of the shift walking around the unit listening to head phone and socializing with cohorts. Pt. took one nap this afternoon and later approached principal technical writer c/o anxiety requesting Ativan and Seroquel; these meds were not available as it was too soon. Pt. was willing to accept a lozenge and wait, PRN Ativan and Seroquel administered at 1420. He is cooperative and polite and interacts with others well. Pt. is well groomed, has good hygiene, and wears street clothes. Plan: Crisis interruption and stabilization in a safe and therapeutic environment, pending placement.
--- NOTE | 2023-01-28 17:47 | NUR ---
BUS DRIVER SUPERVISOR documentation: I have reviewed and agree with all interventions, assessments performed and documented by Kadi Ahumada.
[2023-01-28 19:00] VITALS: RESP 14; O2SAT 96
[2023-01-28 20:00] VITALS: BP 109/57; PULSE 90; RESP 14; TEMP 97.4; O2SAT 96
[2023-01-28] MEDS: OLANZAPINE 5 MG TABLET PO SCH (20:14)
--- NOTE | 2023-01-28 23:21 | NUR ---
Nursing Progress Note: Problem: Pt admitted on 5150 for DTO from our ER. Pt reported that he constantly has thoughts of killing people. He does not know where he can live. He is homeless, does not eat and not wearing shoes. Pt has history of Schizophrenia, bipolar, anxiety & anti-social. Interventions: The patient is on q 15 minute safety checks. One to one with the patient to assess for severity of thought disorder. Patient given requested PRN medications Seroquel and Ativan after change of shift. Assessed for medication side effects. Response: The patient has been up on the unit and social with peers. Soon after change of shift he requested Seroquel and ativan. His behavior has not required any redirection. At the time of the assessment he denied hearing voices but earlier in the day he was hearing voices that "were just a static" He denied VH and he denied paranoia. He stated that his mood was "alright" He denies thoughts to harm himself or others. He stated that he has been eating and sleeping well. Plan: Continue hospitalization until a suitable placement can be obtained. Assess severity of thought disorder at least q shift and prn. Watch for agitation and elopement attempts.
[2023-01-29 07:00] VITALS: RESP 16; O2SAT 98
[2023-01-29] MEDS: LORazepam 0.5 MG tablet PO SCH ×4 (07:10→20:33)
[2023-01-29] MEDS: quetiapine 100mg tablet PO SCH ×4 (07:10→20:33)
[2023-01-29] MEDS: multivitamins, therapeutics tablet PO SCH (07:10)
[2023-01-29] MEDS: NICOTINE POLACRILEX 2 MG LOZENGE BC PRN ×4 (07:10→16:22)
[2023-01-29] MEDS: docusate sod 100mg capsule PO SCH ×2 (07:10→20:33)
[2023-01-29] MEDS: busPIRone 15mg tablet PO SCH ×3 (07:10→20:33)
[2023-01-29] MEDS: OLANZapine 5mg rapidly disint. tablet PO SCH (07:10)
[2023-01-29 07:19] VITALS: BP 120/62; PULSE 98; RESP 16; TEMP 98.7; O2SAT 98
[2023-01-29] MEDS: quetiapine 100mg tablet PO PRN ×2 (08:42→14:43)
[2023-01-29] MEDS: LORazepam 1 MG tablet PO PRN ×2 (08:42→14:43)
[2023-01-29] MEDS: magnesium hydroxide 30ml (MOM) UD suspension PO PRN (14:08)
--- NOTE | 2023-01-29 16:35 | NUR ---
Nursing Progress Note: Chan Problem: Currently on LPS awaiting placement. Orig. admit 10/10/22 d/t GD, homeless and unable to formulate a viable plan for nursing home and food, with homicidal ideations constantly. Pt has history of Schizophrenia, bipolar, anxiety, antisocial. Interventions: Medication administration, 1:1 MH assessment, maintained a safe and supportive environment, provided clear and simple instructions, provided encouragement regarding performance of ADLs, monitored behaviors and maintained clear boundaries, maintained Q15 minute safety checks. Response: Pt. received awake walking around the unit at shift change. He approached this pattern chart writer early and requested his morning meds with an nicotine lozenge. Pt. denies SI, HI, AH, VH and continues to await placement. Pt. is cooperative with staff, socializes with cohorts, and walks around the unit for exercise He c/o anxiety after about an hour of routine meds, and requested PRN Seroquel and Ativan. Pt. requested MOM but reports his constipation is minimal. Pt. took a nap this afternoon and awoke for lunch. At approx. 1445 pt. was overheard talking with [facility], he perseverating on [facility] laws and unjust treatment Pt. became hyper verbal and louder, but not aggressive toward others. PRN Ativan and Seroquel given with good results. Pt. ate all meals in the dining area, is well groomed, and wears street clothes. Pt. received several nicotine lozenges this shift. Plan: Crisis interruption and stabilization in a safe and therapeutic environment, pending placement.
[2023-01-29 20:00] VITALS: BP 133/60; PULSE 125; RESP 18; TEMP 97.9; O2SAT 98
[2023-01-29] MEDS: OLANZAPINE 5 MG TABLET PO SCH (20:33)
--- NOTE | 2023-01-30 00:17 | NUR ---
Nursing Progress Note: Chan Problem: Currently on LPS awaiting placement. Orig. admit 10/10/22 d/t GD, homeless and unable to formulate a viable plan for longterm and food, with homicidal ideations constantly. Pt has history of Schizophrenia, bipolar, anxiety, antisocial. Interventions: Medication administration, 1:1 MH assessment, maintained a safe and supportive environment, provided clear and simple instructions, provided encouragement regarding performance of ADLs, monitored behaviors and maintained clear boundaries, maintained Q15 minute safety checks. Response: Pt. received patient with headphones on pacing the unit. Pt greeted this commercial loan underwriter appropriately and was cooperative with care. Pt participated in snacks and took all HS medications without issue. Pt states he is doing alright and states he hears voices all the time. Pt would not elaborate. Pt went to bed shortly after med pass. He did not appear to be responding to IS this shift. Plan: Crisis interruption and stabilization in a safe and therapeutic environment, pending placement.
[2023-01-30] MEDS: NICOTINE POLACRILEX 2 MG LOZENGE BC PRN ×4 (06:08→18:55)
[2023-01-30 07:00] VITALS: RESP 16; O2SAT 96
[2023-01-30] MEDS: quetiapine 100mg tablet PO SCH ×4 (07:40→20:43)
[2023-01-30] MEDS: docusate sod 100mg capsule PO SCH ×2 (07:41→20:43)
[2023-01-30] MEDS: busPIRone 15mg tablet PO SCH ×3 (07:42→20:43)
[2023-01-30] MEDS: LORazepam 0.5 MG tablet PO SCH ×4 (07:42→20:43)
[2023-01-30] MEDS: multivitamins, therapeutics tablet PO SCH (07:42)
[2023-01-30] MEDS: OLANZapine 5mg rapidly disint. tablet PO SCH (07:42)
[2023-01-30 08:00] VITALS: BP 131/79; PULSE 93; RESP 16; TEMP 98.3; O2SAT 96
--- NOTE | 2023-01-30 12:00 | NUR ---
Sent updated notes and MAR to [facility] office at their request. MARIA LUISA Villeda
--- NOTE | 2023-01-30 12:03 | NUR ---
PLACEMENT UPDATE Chan's packet is in the queue at [facility], [facility], [facility], [facility], [facility], [place], and [facility]. [facility] is currently reconsidering this clients placement packet with the updates that were sent. MARIA LUISA Villeda
[2023-01-30] MEDS: LORazepam 1 MG tablet PO PRN (15:04)
--- NOTE | 2023-01-30 16:46 | NUR ---
Nursing Progress Note: Chan Problem: Currently on LPS awaiting placement. Orig. admit 10/10/22 d/t GD, homeless and unable to formulate a viable plan for intermediate and food, with homicidal ideations constantly. Pt has history of Schizophrenia, bipolar, anxiety, antisocial. Interventions: Medication administration, 1:1 MH assessment, maintained a safe and supportive environment, provided clear and simple instructions, provided encouragement regarding performance of ADLs, monitored behaviors and maintained clear boundaries, maintained Q15 minute safety checks. Response: Pt. received awake watching tv in community area. Pt. denies SI, HI, AH, VH and continues to await placement. Pt. requested his morning meds before 0700 reporting Im anxious he took his medications without hesitation. Pt. ate breakfast in the dining area with cohorts and spent the remained of the morning walking, listening to headphones, and doing pushups on the door. He approached this singer songwriter requesting medication for anxiety; medications administered. Pt. has effectively requested medication as a coping skill to deal with his frequent anxiety; provider notified of recent frequency. Pt. required PRN Ativan later in the afternoon in between routine medications. He ate all meals in dining room today, and appropriately interacts with cohorts and is observed assisting an elderly female cohort, offering to get her a cup of coffee or push her to a table. Pt. took one short nap after breakfast, his bedroom was found to be tidy and very organized. He has good hygiene, well groomed, and wears street clothes. Plan: Crisis interruption and stabilization in a safe and therapeutic environment, pending placement.
[2023-01-30 19:00] VITALS: BP 125/68; PULSE 77; RESP 16; TEMP 98.4; O2SAT 97
[2023-01-30] MEDS: OLANZAPINE 5 MG TABLET PO SCH (20:43)
--- NOTE | 2023-01-30 23:43 | NUR ---
Nursing Progress Note: Chan Problem: Currently on LPS awaiting placement. Orig. admit 10/10/22 d/t GD, homeless and unable to formulate a viable plan for fdc and food, with homicidal ideations constantly. Pt has history of Schizophrenia, bipolar, anxiety, antisocial. Interventions: Medication administration, 1:1 MH assessment, maintained a safe and supportive environment, provided clear and simple instructions, provided encouragement regarding performance of ADLs, monitored behaviors and maintained clear boundaries, maintained Q15 minute safety checks. Response: Pt. received with headphones pacing the unit. Pt observed in the community room watching some TV with peers. Pt. denies SI, HI, AH, VH and continues to await placement. Pt participated in snacks then went to his room where he isolated/slept the rest of the evening. Pt took all HS medications and did not say anything else to this newswriter and went back to sleep. Plan: Crisis interruption and stabilization in a safe and therapeutic environment, pending placement.
[2023-01-31] MEDS: NICOTINE POLACRILEX 2 MG LOZENGE BC PRN ×5 (05:18→20:15)
[2023-01-31] MEDS: LORazepam 1 MG tablet PO PRN (05:40)
[2023-01-31] MEDS: quetiapine 100mg tablet PO PRN (05:40)
[2023-01-31] MEDS: busPIRone 15mg tablet PO SCH ×3 (07:52→20:15)
[2023-01-31] MEDS: LORazepam 0.5 MG tablet PO SCH ×4 (07:52→20:15)
[2023-01-31] MEDS: quetiapine 100mg tablet PO SCH ×4 (07:53→20:15)
[2023-01-31] MEDS: multivitamins, therapeutics tablet PO SCH (07:53)
[2023-01-31] MEDS: docusate sod 100mg capsule PO SCH ×2 (07:53→20:15)
[2023-01-31] MEDS: OLANZapine 5mg rapidly disint. tablet PO SCH (07:56)
[2023-01-31 08:00] VITALS: BP 118/61; PULSE 80; RESP 16; TEMP 97.4; O2SAT 96
--- NOTE | 2023-01-31 16:39 | NUR ---
Nursing Progress Note: Problem: Currently on LPS awaiting placement. Orig. admit 10/10/22 d/t GD, homeless and unable to formulate a viable plan for halfway and food, with homicidal ideations constantly. Pt has history of Schizophrenia, bipolar, anxiety, antisocial. Interventions: Medication administration, 1:1 MH assessment, maintained a safe and supportive environment, provided clear and simple instructions, provided encouragement regarding performance of ADLs, monitored behaviors and maintained clear boundaries, maintained Q15 minute safety checks. Response: Pt awake at change of shift, seen in the hallways conversing with staff. Pt attended both meals and group this shift. Pt endorses both A/VH, stating I seen some s last night but not much today. Continues to endorse S/HI, stating yes and no, when I get off of probation I promised a friend I would stab someone for him. It is unclear if these are real statements or delusional, pt is known for making homicidal statements. PRN lozenge administered X2. Pt seen working out in his bedroom, walking the halls utilizing unit headphones and napping in the afternoon. Plan: Crisis interruption and stabilization in a safe and therapeutic environment, pending placement.
[2023-01-31 19:17] VITALS: BP 131/81; PULSE 105; RESP 18; TEMP 97.8; O2SAT 96
[2023-01-31] MEDS: OLANZAPINE 5 MG TABLET PO SCH (20:15)
--- NOTE | 2023-01-31 23:36 | NUR ---
Nursing Progress Note: Chan Problem: Currently on LPS awaiting placement. Orig. admit 10/10/22 d/t GD, homeless and unable to formulate a viable plan for half-way and food, with homicidal ideations constantly. Pt has history of Schizophrenia, bipolar, anxiety, antisocial. Interventions: Medication administration, 1:1 MH assessment, maintained a safe and supportive environment, provided clear and simple instructions, provided encouragement regarding performance of ADLs, monitored behaviors and maintained clear boundaries, maintained Q15 minute safety checks. Response: Pt observed in the hallway with headphones pacing. Pt states his voices are all right. Pt seen talking with another peer in the community room about taking drugs and how they made him feel. Pt participated in snacks and given HS medications without issue. Pt observed to be pacing with another peer for a while until bedtime. Plan: Crisis interruption and stabilization in a safe and therapeutic environment, pending placement.
[2023-02-01] MEDS: NICOTINE POLACRILEX 2 MG LOZENGE BC PRN ×4 (06:19→18:10)
[2023-02-01] MEDS: quetiapine 100mg tablet PO SCH ×4 (07:43→20:30)
[2023-02-01] MEDS: OLANZapine 5mg rapidly disint. tablet PO SCH (07:43)
[2023-02-01] MEDS: multivitamins, therapeutics tablet PO SCH (07:44)
[2023-02-01] MEDS: docusate sod 100mg capsule PO SCH ×2 (07:44→20:30)
[2023-02-01] MEDS: busPIRone 15mg tablet PO SCH ×3 (07:44→20:31)
[2023-02-01] MEDS: LORazepam 0.5 MG tablet PO SCH ×4 (07:45→20:31)
[2023-02-01 08:00] VITALS: BP 125/79; PULSE 78; RESP 16; TEMP 98.2; O2SAT 100
[2023-02-01] MEDS: magnesium hydroxide 30ml (MOM) UD suspension PO PRN (12:01)
--- NOTE | 2023-02-01 15:53 | NUR ---
Nursing Progress Note: Problem: Currently on LPS awaiting placement. Orig. admit 10/10/22 d/t GD, homeless and unable to formulate a viable plan for skilled nursing and food, with homicidal ideations constantly. Pt has history of Schizophrenia, bipolar, anxiety, antisocial. Interventions: Provide medication administration & medication management; Maintained a safe & supportive environment; Clear & simple instructions; Direction & encouragement regarding performance of ADLs; monitored behaviors & maintained clear boundaries; Patient physical assessment & 1:1 patient interview; Therapeutic conversation & active listening; Patient education & monitoring. Response: Received patient at 0630 and he slept until approximately 0700. Patient requested coffee at this time then ambulated the hallways wearing headphones. Patient took his medication without hesitation. Patient ambulated to the Community Room for breakfast. Patient ate his breakfast quickly (his usual routine), and continued to ambulate the hallways and then fell asleep in his bed at approximately 0915 until 1100. When patient got up from resting he continued ambulating with headphones and did watch some TV in the Community Room with peers. Patient did not display any satanic taoism or homicidal ideation. Patient has been pleasant, polite and cooperative throughout the day. Plan: Crisis interruption and stabilization in a safe and therapeutic environment, pending placement.
[2023-02-01] MEDS: LORazepam 1 MG tablet PO PRN (18:34)
[2023-02-01] MEDS: quetiapine 100mg tablet PO PRN (18:34)
[2023-02-01 20:30] VITALS: BP 133/86; PULSE 79; RESP 16; TEMP 98.2; O2SAT 99
[2023-02-01] MEDS: OLANZAPINE 5 MG TABLET PO SCH (20:33)
[2023-02-02 07:30] VITALS: RESP 14; O2SAT 98
[2023-02-02 08:00] VITALS: BP 103/56; PULSE 78; RESP 14; TEMP 98.5; O2SAT 98
[2023-02-02] MEDS: LORazepam 0.5 MG tablet PO SCH ×4 (08:07→20:53)
[2023-02-02] MEDS: OLANZapine 5mg rapidly disint. tablet PO SCH (08:07)
[2023-02-02] MEDS: multivitamins, therapeutics tablet PO SCH (08:07)
[2023-02-02] MEDS: docusate sod 100mg capsule PO SCH ×2 (08:07→20:54)
[2023-02-02] MEDS: busPIRone 15mg tablet PO SCH ×3 (08:07→20:52)
[2023-02-02] MEDS: quetiapine 100mg tablet PO PRN ×2 (08:38→17:19)
[2023-02-02] MEDS: LORazepam 1 MG tablet PO PRN ×2 (08:38→16:15)
[2023-02-02] MEDS: NICOTINE POLACRILEX 2 MG LOZENGE BC PRN ×4 (08:40→15:25)
[2023-02-02] MEDS: quetiapine 100mg tablet PO SCH ×4 (08:40→20:53)
[2023-02-02] MEDS ORDERED: hydrOXYzine 25 MG tablet PO ONE (09:55)
--- NOTE | 2023-02-02 17:53 | NUR ---
Nursing Progress Note: Problem: Currently on LPS awaiting placement. Orig. admit 10/10/22 d/t GD, homeless and unable to formulate a viable plan for prison and food, with homicidal ideations constantly. Pt has history of Schizophrenia, bipolar, anxiety, antisocial. Interventions: Medication administration, 1:1 MH assessment, maintained a safe and supportive environment, provided clear and simple instructions, provided encouragement regarding performance of ADLs, monitored behaviors and maintained clear boundaries, maintained Q15 minute safety checks. Response: RN received pt. asleep in bed at start of shift. Pt. awoke late for breakfast and took all medications. Pt. requested anxiolytic PRNs soon after receiving AM medications. Pt. received Ativan 0.5 and Seroquel 100mg with minimal effect. Approx. 1 hour pt. overheard talking about murdering people and pt. approached RN and c/o anxiety and provider gave x1 order for Atarax 25mg and pt. received with good effect. Pt. c/o anxiety in afternoon and received prn Ativan 1mg with moderate effect. Pt. requested additional PRN for anxiety and received Seroquel 100mg with 1700 Ativan 0.5mg with good effect. Pt. denies SI/HI, A/V hallucinations. Pt. observed doing pushups in his room, pt. states, I need to do this to calm down. Pt. states, I found my parents have been screwing me this entire time!. Pt. wanted to be alone and later observed sleeping. Plan: Crisis interruption and stabilization in a safe and therapeutic environment, pending placement.
[2023-02-02] MEDS ORDERED: tuberculin, purif. prot. deriv. 5 units/0.1ml ID ONE (18:05)
[2023-02-02 19:51] VITALS: BP 106/54; PULSE 82; RESP 16; TEMP 97.4; O2SAT 96
[2023-02-02] MEDS: OLANZAPINE 5 MG TABLET PO SCH (20:52)
--- NOTE | 2023-02-03 04:13 | NUR ---
Nursing Progress Note: Problem: Currently on LPS awaiting placement. Orig. admit 10/10/22 d/t GD, homeless and unable to formulate a viable plan for assisted and food, with homicidal ideations constantly. Pt has history of Schizophrenia, bipolar, anxiety, antisocial. Interventions: Medication administration, 1:1 MH assessment, maintained a safe and supportive environment, provided clear and simple instructions, provided encouragement regarding performance of ADLs, monitored behaviors and maintained clear boundaries, maintained Q15 minute safety checks. Response: Patient is pleasant and cooperative; compliant with medication. PPD placed to [facility] 02/02/23 @ 2145. He isolated this shift and appeared fatigued. Denied SI, HI, A/VH; no apparent delusions expressed this shift but patient presented guarded and responding minimally. Shower was offered this shift but refused at the time. He briefly participated in HS snack and promptly returned to bed; observed sleeping and does not appear to be having difficulty. Plan: Crisis interruption and stabilization in a safe and therapeutic environment, pending placement.
--- NOTE | 2023-02-03 04:18 | NUR ---
Bankruptcy Assistant documentation: I have reviewed and agree with all interventions, assessments performed and documented by Sandra Ambriz LVN.
[2023-02-03] MEDS: NICOTINE POLACRILEX 2 MG LOZENGE BC PRN ×6 (06:37→20:14)
[2023-02-03 07:30] VITALS: RESP 16; O2SAT 99
[2023-02-03] MEDS: busPIRone 15mg tablet PO SCH ×3 (07:32→20:14)
[2023-02-03] MEDS: LORazepam 0.5 MG tablet PO SCH ×4 (07:32→20:14)
[2023-02-03] MEDS: docusate sod 100mg capsule PO SCH ×2 (07:32→20:13)
[2023-02-03] MEDS: multivitamins, therapeutics tablet PO SCH (07:32)
[2023-02-03] MEDS: quetiapine 100mg tablet PO SCH ×4 (07:32→20:13)
[2023-02-03] MEDS: OLANZapine 5mg rapidly disint. tablet PO SCH (07:32)
[2023-02-03 08:00] VITALS: BP 132/59; PULSE 86; RESP 16; TEMP 97.9; O2SAT 99
[2023-02-03] MEDS: LORazepam 1 MG tablet PO PRN (15:39)
[2023-02-03] MEDS: quetiapine 100mg tablet PO PRN (16:25)
--- NOTE | 2023-02-03 17:39 | NUR ---
Nursing Progress Note: Problem: Currently on LPS awaiting placement. Orig. admit 10/10/22 d/t GD, homeless and unable to formulate a viable plan for senior care and food, with homicidal ideations constantly. Pt has history of Schizophrenia, bipolar, anxiety, antisocial. Interventions: Medication administration, 1:1 MH assessment, maintained a safe and supportive environment, provided clear and simple instructions, provided encouragement regarding performance of ADLs, monitored behaviors and maintained clear boundaries, maintained Q15 minute safety checks. Response: RN received pt. asleep in bed at start of shift. Pt. awoke late for breakfast and took all medications. Pt. observed pacing halls and socializing with female peer. Pt. c/o anxiety in the afternoon and received Seroquel 100mg with moderate effect. Pt. became loud and grandiose talking with peers and RN offered pt. Ativan 1mg and pt. took with good effect. Pt. denies SI/HI, A/V hallucinations. Pt. did not nap during the day today. Plan: Crisis interruption and stabilization in a safe and therapeutic environment, pending placement.
[2023-02-03 19:30] VITALS: BP 128/81; PULSE 113; RESP 18; TEMP 97.4; O2SAT 98
[2023-02-03] MEDS: OLANZAPINE 5 MG TABLET PO SCH (20:14)
--- NOTE | 2023-02-04 00:58 | NUR ---
Nursing Progress Note: Problem: Currently on LPS awaiting placement. Orig. admit 10/10/22 d/t GD, homeless and unable to formulate a viable plan for custodial and food, with homicidal ideations constantly. Pt has history of Schizophrenia, bipolar, anxiety, antisocial. Interventions: Medication administration, 1:1 MH assessment, maintained a safe and supportive environment, provided clear and simple instructions, provided encouragement regarding performance of ADLs, monitored behaviors and maintained clear boundaries, maintained Q15 minute safety checks. Response: Patient is pleasant and cooperative with care; compliant with medication. PRN Nicotine lozenge provided per patient request. He denies SI, HI, A/VH; no apparent delusions expressed this shift. Patient participated in HS snack and talked on the phone prior to bed; observed sleeping and does not appear to be having difficulty. Plan: Crisis interruption and stabilization in a safe and therapeutic environment, pending placement.
--- NOTE | 2023-02-04 04:35 | NUR ---
AIRCRAFT ENGINE TECHNICIAN documentation: I have reviewed and agree with all interventions, assessments performed and documented by Sandra SHARMA.
[2023-02-04] MEDS: NICOTINE POLACRILEX 2 MG LOZENGE BC PRN ×6 (06:46→20:26)
[2023-02-04] MEDS: docusate sod 100mg capsule PO SCH ×2 (07:09→19:51)
[2023-02-04] MEDS: quetiapine 100mg tablet PO SCH ×4 (07:09→19:51)
[2023-02-04] MEDS: busPIRone 15mg tablet PO SCH ×3 (07:10→19:51)
[2023-02-04] MEDS: multivitamins, therapeutics tablet PO SCH (07:10)
[2023-02-04] MEDS: LORazepam 0.5 MG tablet PO SCH ×4 (07:10→19:51)
[2023-02-04] MEDS: OLANZapine 5mg rapidly disint. tablet PO SCH (07:10)
--- NOTE | 2023-02-04 07:28 | NUR ---
F/u 02/04: Pt continues with mostly 100% PO intake of regular meals while receiving double protein BIDBD and snacks meeting estimated nutrient needs. LBM 02/02 per EMR. No nutrition intervention at this time. Will continue to follow. Recommendations: 1. Continue regular diet; double eggs WB, double protein WS 2. Routine bowel care 3. Weekly scaled wts Addendum: 02/04/23 at [address] Amended: Links added.
[2023-02-04 07:30] VITALS: BP 135/56; PULSE 73; RESP 12; TEMP 98.4; O2SAT 98
--- NOTE | 2023-02-04 17:22 | NUR ---
Nursing Progress Note: Chan Problem: Patient was admitted here as a 5150 for DTS/DTO. Patient has thoughts of hanging himself and/or killing others. Patient is homeless. Patient has a history of Schizophrenia and alcohol and other drug abuse. Patient has thoughts of hanging himself with a rope or a chain. Interventions: Maintained a safe and supportive environment, provided clear and simple instructions, attempted to orient to reality, monitored behaviors and provided structure and limit setting, obtained orders for seclusion and chemical restraints, provided medications as needed.. Response: Pt. received later in the shift. He ate his meals in the community room with cohorts, and appears to enjoy socializing with males. He was p/u by an escort and taken to finish an appointment with optometry; he returned without issue. Pt. has been upbeat and has not displayed an s/sx of anxiety today, he was given PRN Nicotine lozenges throughout the shift. Plan: Pt. requires medication adjustments and a safe and supportive environment along with close monitoring for patient and staff safety.
[2023-02-04 19:09] VITALS: BP 139/79; PULSE 90; RESP 14; TEMP 97.6; O2SAT 97
[2023-02-04] MEDS: OLANZAPINE 5 MG TABLET PO SCH (19:52)
[2023-02-04] MEDS: LORazepam 1 MG tablet PO PRN (20:59)
[2023-02-04] MEDS: quetiapine 100mg tablet PO PRN (20:59)
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
[2023-02-05] MEDS: docusate sod 100mg capsule PO SCH ×2 (07:34→20:04)
[2023-02-05] MEDS: busPIRone 15mg tablet PO SCH ×3 (07:34→20:05)
[2023-02-05] MEDS: OLANZapine 5mg rapidly disint. tablet PO SCH (07:34)
[2023-02-05] MEDS: NICOTINE POLACRILEX 2 MG LOZENGE BC PRN ×5 (07:34→20:31)
[2023-02-05] MEDS: LORazepam 0.5 MG tablet PO SCH ×4 (07:34→20:05)
[2023-02-05] MEDS: multivitamins, therapeutics tablet PO SCH (07:34)
[2023-02-05] MEDS: quetiapine 100mg tablet PO SCH ×4 (07:35→20:05)
[2023-02-05 08:18] VITALS: BP 120/70; PULSE 82; RESP 16; TEMP 97.6; O2SAT 98
--- NOTE | 2023-02-05 16:05 | NUR ---
Nursing Progress Note: Problem: Patient was admitted here as a 5150 for DTS/DTO. Patient has thoughts of hanging himself and/or killing others. Patient is homeless. Patient has a history of Schizophrenia and alcohol and other drug abuse. Patient has thoughts of hanging himself with a rope or a chain. Interventions: Medication administration/education/monitoring; provided clear and simple instructions, attempted to orient to reality, monitored behaviors and provided structure and limit setting, monitored [id number] safety checks. Response: Observed pt up on the unit pacing the halls while chatting with peers. Occasionally seen listening to headphones pacing alone in the halls. Pt is medication compliant. He is friendly and polite with staff. Occasionally pt requires redirection due to inappropriate language but will apologize and change it for a few minutes. Plan: Pt. requires medication adjustments and a safe and supportive environment along with close monitoring for patient and staff safety.
[2023-02-05 19:00] VITALS: BP 146/65; PULSE 75; RESP 16; TEMP 97.8; O2SAT 97
[2023-02-05] MEDS: OLANZAPINE 5 MG TABLET PO SCH (20:05)
--- NOTE | 2023-02-06 00:37 | NUR ---
Nursing Progress Note: Chan Problem: Patient was admitted here as a 5150 for DTS/DTO. Patient has thoughts of hanging himself and/or killing others. Patient is homeless. Patient has a history of Schizophrenia and alcohol and other drug abuse. Patient has thoughts of hanging himself with a rope or a chain. Interventions: Medication administration/education/monitoring; provided clear and simple instructions, attempted to orient to reality, monitored behaviors and provided structure and limit setting, monitored [id number] safety checks. Response: Observed pt pacing with headphones on. Pt cooperative this shift and was seen pacing with another peer. Pt states Shila had schizophrenia since I was 17 and I am learning how to live with it and learning when I need medication. Pt up for snacks and took all HS medications, pt to bed shortly after. Plan: Pt. requires medication adjustments and a safe and supportive environment along with close monitoring for patient and staff safety.
[2023-02-06] MEDS: NICOTINE POLACRILEX 2 MG LOZENGE BC PRN ×5 (04:12→17:12)
[2023-02-06 07:00] VITALS: RESP 16; O2SAT 99
[2023-02-06] MEDS: LORazepam 0.5 MG tablet PO SCH ×4 (07:14→20:14)
[2023-02-06] MEDS: OLANZapine 5mg rapidly disint. tablet PO SCH (07:14)
[2023-02-06] MEDS: busPIRone 15mg tablet PO SCH ×3 (07:14→20:14)
[2023-02-06] MEDS: docusate sod 100mg capsule PO SCH ×2 (07:14→20:14)
[2023-02-06] MEDS: quetiapine 100mg tablet PO SCH ×4 (07:14→20:14)
[2023-02-06] MEDS: multivitamins, therapeutics tablet PO SCH (07:14)
[2023-02-06 08:00] VITALS: BP 125/77; PULSE 68; RESP 16; TEMP 97; O2SAT 99
[2023-02-06] MEDS: quetiapine 100mg tablet PO PRN ×2 (08:12→18:40)
[2023-02-06 08:23] VITALS: BP 125/77; PULSE 68; RESP 16; TEMP 97; O2SAT 99
--- NOTE | 2023-02-06 12:40 | NUR ---
Sent updated notes to [place] office (01/30-02/05). MARIA LUISA Villeda
--- NOTE | 2023-02-06 14:28 | NUR ---
Nursing Progress Note: Problem: Pt admitted on 5150 for DTO from our ER. Pt reported that he constantly has thoughts of killing people. He does not know where he can live. He is homeless, does not eat and not wearing shoes. Pt has history of Schizophrenia, bipolar,anxiety,antisocial. Interventions: 1:1 assessment, therapeutic conversation, active listening, medication administration/education/monitoring, behavior monitoring and intervention as needed; provided distraction, redirection, positive reinforcement, and Q15 minute safety checks. Response: Pt was up before breakfast socializing with a female peer in the dining room. Pt was cooperative with morning medications, pt asked for a nicotine lozenge. Pt requested PRN Seroquel 100 mg at 0818. Pt appeared restless and anxious, pt had been laughing loudly and maniacally in the hallway with the radio headphones on before asking for the PRN. Reminded pt that he had taken his morning meds not too long ago but pt stated he felt anxious and needed a PRN so it was given with good effect. Pt napped for awhile. Pt slept through snack time, he got up afterwards asking for chips and coffee as well as a nicotine lozenge and they were provided. Pt reports that he was up at 0400 today, "I woke up at 4, I had a dream I was playing [employer] smoking cigarettes, and drinking beer. It was fun." Plan: Pt is conserved and awaiting placement.
[2023-02-06] MEDS: LORazepam 1 MG tablet PO PRN (18:25)
[2023-02-06 19:00] VITALS: BP 137/81; PULSE 93; RESP 17; TEMP 97.2; O2SAT 98
[2023-02-06] MEDS: OLANZAPINE 5 MG TABLET PO SCH (20:14)
--- NOTE | 2023-02-07 00:03 | NUR ---
Nursing Progress Note Chan Problem: Pt admitted on 5150 for DTO from our ER. Pt reported that he constantly has thoughts of killing people. He does not know where he can live. He is homeless, does not eat and not wearing shoes. Pt has history of Schizophrenia, bipolar,anxiety,antisocial. Interventions: 1:1 assessment, therapeutic conversation, active listening, medication administration/education/monitoring, behavior monitoring and intervention as needed; provided distraction, redirection, positive reinforcement, and Q15 minute safety checks. Response: Pt was up with headphones on pacing. Observed later in the community room watching TV with peers. Pt requested PRN Seroquel for anxiety; given with good effect. Pt participated in snacks, took all HS medications, cooperative and pleasant with peers and staff and continued to pace with another peer until bedtime. Plan: Pt is conserved and awaiting placement.
[2023-02-07 07:00] VITALS: RESP 18; O2SAT 99
[2023-02-07] MEDS: NICOTINE POLACRILEX 2 MG LOZENGE BC PRN ×4 (07:11→16:57)
[2023-02-07 08:00] VITALS: BP 142/82; PULSE 88; RESP 18; TEMP 97.7; O2SAT 99
[2023-02-07] MEDS: quetiapine 100mg tablet PO SCH ×4 (08:13→20:52)
[2023-02-07] MEDS: multivitamins, therapeutics tablet PO SCH (08:13)
[2023-02-07] MEDS: busPIRone 15mg tablet PO SCH ×3 (08:15→20:51)
[2023-02-07] MEDS: LORazepam 0.5 MG tablet PO SCH ×4 (08:15→20:51)
[2023-02-07] MEDS: docusate sod 100mg capsule PO SCH ×2 (08:15→20:51)
[2023-02-07] MEDS: OLANZapine 5mg rapidly disint. tablet PO SCH (08:16)
[2023-02-07] MEDS: LORazepam 1 MG tablet PO PRN (16:14)
--- NOTE | 2023-02-07 16:44 | NUR ---
Nursing Progress Note: Problem: Pt admitted on 5150 for DTO from our ER. Pt reported that he constantly has thoughts of killing people. He does not know where he can live. He is homeless, does not eat and not wearing shoes. Pt has history of Schizophrenia, bipolar,anxiety,antisocial. Interventions: 1:1 assessment, therapeutic conversation, active listening, medication administration/education/monitoring, behavior monitoring and intervention as needed; provided distraction, redirection, positive reinforcement, and Q15 minute safety checks. Response: Patient up in the hallways pacing at change of shift. Patient requests medications early, which were provided. Patient is friendly with peers and makes conversations with select individuals. Patient reports that he was hearing voices this morning, but not currently. Patient believes that his brain glitches and then he hears what he interprets as voices. Patient denies SI. Patient just mostly walking the hallways with headphones on. Patient was redirected on his language. Patient requesting prns frequently throughout the day. Nicotine lozenge x 3. Ativan and Seroquel prn. Plan: Pt is conserved and awaiting placement.
[2023-02-07] MEDS: quetiapine 100mg tablet PO PRN (16:54)
[2023-02-07 19:00] VITALS: RESP 14; O2SAT 98
[2023-02-07 20:00] VITALS: BP 116/56; PULSE 85; RESP 14; TEMP 98.5; O2SAT 98
[2023-02-07] MEDS: OLANZAPINE 5 MG TABLET PO SCH (20:51)
--- NOTE | 2023-02-07 23:24 | NUR ---
Nursing Progress Note Chan Problem: Pt admitted on 5150 for DTO from our ER. Pt reported that he constantly has thoughts of killing people. He does not know where he can live. He is homeless, does not eat and not wearing shoes. Pt has history of Schizophrenia, bipolar,anxiety,antisocial. Interventions: 1:1 assessment, therapeutic conversation, active listening, medication administration/education/monitoring, behavior monitoring and intervention as needed; provided distraction, redirection, positive reinforcement, and Q15 minute safety checks. Response: Patient walking the lion wearing headphones at change of shift. Socialized for a short while with peers and staff. In bed early, before evening snack. Slept through snack. Pt. was awaken for HS medications. Pleasant and cooperative. Compliant with medications. Denies SI/HI, AH/VH. Pt. observed and appears to be sleeping. Plan: Pt is conserved and awaiting placement.
--- NOTE | 2023-02-08 03:14 | NUR ---
EMERGENCY WORKER documentation: I have reviewed all interventions, assessments performed and documented by Jennifer SHARMA.
[2023-02-08] MEDS: LORazepam 0.5 MG tablet PO SCH ×4 (07:48→20:16)
[2023-02-08] MEDS: docusate sod 100mg capsule PO SCH ×2 (07:48→20:14)
[2023-02-08] MEDS: busPIRone 15mg tablet PO SCH ×2 (07:48→13:20)
[2023-02-08] MEDS: quetiapine 100mg tablet PO SCH ×4 (07:48→20:16)
[2023-02-08] MEDS: multivitamins, therapeutics tablet PO SCH (07:51)
[2023-02-08] MEDS: OLANZapine 5mg rapidly disint. tablet PO SCH (07:53)
[2023-02-08 08:00] VITALS: BP 114/78; PULSE 76; RESP 18; TEMP 98.1; O2SAT 99
[2023-02-08] MEDS: NICOTINE POLACRILEX 2 MG LOZENGE BC PRN ×4 (08:22→18:37)
[2023-02-08] MEDS: quetiapine 100mg tablet PO PRN (09:07)
[2023-02-08] MEDS: LORazepam 1 MG tablet PO PRN (09:07)
[2023-02-08 15:53] LABS: CLARITY,URINE CLEAR (Clear); COLOR,URINE YELLOW (Yellow); GLUCOSE, URINE NEGATIVE (Neg); KETONES,URINE NEGATIVE (Neg); LEUKOCYTE ESTERASE ,URINE NEGATIVE (Neg); NITRITES, URINE NEGATIVE (Neg); OCCULT BLOOD,URINE NEGATIVE (Neg); PROTEIN,URINE NEGATIVE (Neg); UROBILINOGEN,URINE 0.2 E.U/dL (0.2-1.0)
[2023-02-08 16:02] LABS: UA COLLECTION TYPE NON-SPECIFIED
--- NOTE | 2023-02-08 16:45 | NUR ---
Nursing Progress Note: Problem: Currently on LPS awaiting placement. Orig. admit 10/10/22 d/t GD, homeless and unable to formulate a viable plan for long term and food, with homicidal ideations constantly. Pt has history of Schizophrenia, bipolar, anxiety, antisocial. Interventions: Provide medication administration & medication management; Maintained a safe & supportive environment; Clear & simple instructions; Direction & encouragement regarding performance of ADLs; monitored behaviors & maintained clear boundaries; Patient physical assessment & 1:1 patient interview; Therapeutic conversation & active listening; Patient education & monitoring. Response: Received the patient when he woke up for breakfast at 0755 and ambulated to the Community Room to eat breakfast and was administered his morning medications. Patient requested a Nicotine Lozenge after breakfast and at approximately 0900 requested his Ativan & Seroquel prn. Informed the patient that he had received Ativan and Seroquel at 0735. Patient was given his Ativan 1mg & Seroquel prn dose at 0905. Spoke to Kamilla voice data communications engineer, who requested that I speak to Dr. Meneses as patient is consistently asking for these medications right after receiving the same medications just an hour before. Spoke with Dr. Meneses at 1410 and informed of the prn use right after administration of the same drug occurs. Dr. Meneses asked this Manual Equipment Mechanic to get the patient and bring him in the Conference Room to speak with him directly. Medication changes effective at 01/11/23 @ 1414 were to 1. D/C Ativan prn 2. Decrease Seroquel from 300mg to 200mg po hs 3. Increase Buspar from 10mg to 20mg po tid. Chan has spent most of the day from 1000 to 1410 in bed napping with the exception of meal/snack times. Patient has worn headphones most of the day and has not had any delusions about homicidal ideation or satanic religion. Urine sample collected at 1535 and taken down to the Lab for a Urine C & S if indicated. Urine results showed negative UA and urine culture was not indicated. Informed Dr. Meneses of the patients results for the UA. Plan: Crisis interruption and stabilization in a safe and therapeutic environment, pending placement.
[2023-02-08 19:00] VITALS: RESP 16; O2SAT 96
[2023-02-08 20:04] VITALS: BP 108/55; PULSE 88; RESP 16; TEMP 97.4; O2SAT 96
[2023-02-08] MEDS: busPIRone 5mg tablet PO SCH (20:15)
[2023-02-08] MEDS: OLANZAPINE 5 MG TABLET PO SCH (20:16)
--- NOTE | 2023-02-09 00:05 | NUR ---
Nursing Progress Note: Problem: Currently on LPS awaiting placement. Orig. admit 10/10/22 d/t GD, homeless and unable to formulate a viable plan for [facility] and food, with homicidal ideations constantly. Pt has history of Schizophrenia, bipolar, anxiety, antisocial. Interventions: Provide medication administration & medication management; Maintained a safe & supportive environment; Clear & simple instructions; Direction & encouragement regarding performance of ADLs; monitored behaviors & maintained clear boundaries; Patient physical assessment & 1:1 patient interview; Therapeutic conversation & active listening; Patient education & monitoring. Response: Received pt. pacing the lion at change of shift wearing headphones. Requested PRN nicotine lozenge. Later observed pacing and socializing with female peer conversating on multiple random topics about his mother walking on the school yard, a wood fire, and the feds. Shortly after 1899 pt. approached this magnetic tape typewriter operator stating he no longer has Ativan as a PRN and asked what other PRN is available. This magnetic tape typewriter operator reminded pt. he had Ativan 2 hours prior and will get scheduled Ativan with his 1999 medications. Pt. did not appear to be anxious. Pt. participated in evening snack. Compliant with medications. No delusions were noted on this shift. Pt. appears to be sleeping at this time. Plan: Crisis interruption and stabilization in a safe and therapeutic environment, pending placement.
--- NOTE | 2023-02-09 04:57 | NUR ---
FOUNDER CEO & PRESIDENT documentation: I have reviewed and agree with all interventions, assessments performed and documented by Jennifer MACIELN.
[2023-02-09] MEDS: NICOTINE POLACRILEX 2 MG LOZENGE BC PRN ×5 (06:37→18:33)
[2023-02-09] MEDS: busPIRone 5mg tablet PO SCH ×3 (07:29→20:06)
[2023-02-09] MEDS: quetiapine 100mg tablet PO SCH ×4 (07:30→20:06)
[2023-02-09] MEDS: OLANZapine 5mg rapidly disint. tablet PO SCH (07:30)
[2023-02-09] MEDS: docusate sod 100mg capsule PO SCH ×2 (07:30→20:06)
[2023-02-09] MEDS: LORazepam 0.5 MG tablet PO SCH ×4 (07:31→20:06)
[2023-02-09] MEDS: multivitamins, therapeutics tablet PO SCH (07:34)
[2023-02-09 07:37] VITALS: BP 146/77; PULSE 94; RESP 18; TEMP 97.4; O2SAT 99
--- NOTE | 2023-02-09 17:15 | NUR ---
Nursing Progress Note: Problem: Currently on LPS awaiting placement. Orig. admit 10/10/22 d/t GD, homeless and unable to formulate a viable plan for detention and food, with homicidal ideations constantly. Pt has history of Schizophrenia, bipolar, anxiety, antisocial. Interventions: Provide medication administration & medication management; Maintained a safe & supportive environment; Clear & simple instructions; Direction & encouragement regarding performance of ADLs; monitored behaviors & maintained clear boundaries; Patient physical assessment & 1:1 patient interview; Therapeutic conversation & active listening; Patient education & monitoring. Response: Received patient when he was awake at 0620 and ambulating on the unit wearing headphones. Patient was kind and cooperative. Requested Nicotine Lozenges approximately every 4 hours. Patient took his morning medications without hesitation. Patient attended the Group Meeting at 1130. Patient rested in bed this afternoon for approximately 2 hours then was up and ambulating after his nap. Patient did not request any prn medications today. Plan: Crisis interruption and stabilization in a safe and therapeutic environment, pending placement.
[2023-02-09] MEDS: quetiapine 100mg tablet PO PRN (18:33)
[2023-02-09 18:48] VITALS: RESP 18; O2SAT 99
[2023-02-09 19:30] VITALS: BP 143/73; PULSE 99; RESP 18; TEMP 97.3; O2SAT 97
[2023-02-09] MEDS: OLANZAPINE 5 MG TABLET PO SCH (20:06)
--- NOTE | 2023-02-09 21:54 | NUR ---
Nursing Progress Note: Problem: Currently on LPS awaiting placement. Orig. admit 10/10/22 d/t GD, homeless and unable to formulate a viable plan for intermediate and food, with homicidal ideations constantly. Pt has history of Schizophrenia, bipolar, anxiety, antisocial. Interventions: Provide medication administration & medication management; Maintained a safe & supportive environment; Clear & simple instructions; Direction & encouragement regarding performance of ADLs; monitored behaviors & maintained clear boundaries; Patient physical assessment & 1:1 patient interview; Therapeutic conversation & active listening; Patient education & monitoring. Response: Pt was on the phone yelling at change of shift. Pt was agitated and offered prn seroquel and nicotine lozenge, Pt took both. pt was able to calm himself after a brief period of loudly laughing in the hallway. Pt spent time socializing with pers and made a few more phone calls. pt is cooperative, had a snack with group and took hs meds. Pt went to bed shortly after med pass. Plan: Crisis interruption and stabilization in a safe and therapeutic environment, pending placement.
[2023-02-10] MEDS: NICOTINE POLACRILEX 2 MG LOZENGE BC PRN ×5 (03:52→17:16)
[2023-02-10] MEDS: quetiapine 100mg tablet PO PRN ×2 (03:52→18:50)
[2023-02-10] MEDS: LORazepam 0.5 MG tablet PO SCH ×4 (07:12→20:02)
[2023-02-10] MEDS: quetiapine 100mg tablet PO SCH ×3 (07:13→20:02)
[2023-02-10] MEDS: busPIRone 5mg tablet PO SCH ×3 (07:13→20:01)
[2023-02-10] MEDS: multivitamins, therapeutics tablet PO SCH (07:13)
[2023-02-10] MEDS: docusate sod 100mg capsule PO SCH ×2 (07:13→20:02)
[2023-02-10] MEDS: OLANZapine 5mg rapidly disint. tablet PO SCH (07:14)
[2023-02-10 08:00] VITALS: BP 160/72; PULSE 74; RESP 14; TEMP 98.2; O2SAT 98
--- NOTE | 2023-02-10 16:45 | NUR ---
Nursing Progress Note: Problem: Currently on LPS awaiting placement. Orig. admit 10/10/22 d/t GD, homeless and unable to formulate a viable plan for half-way and food, with homicidal ideations constantly. Pt has history of Schizophrenia, bipolar, anxiety, antisocial. Interventions: Provide medication administration & medication management; Maintained a safe & supportive environment; Clear & simple instructions; Direction & encouragement regarding performance of ADLs; monitored behaviors & maintained clear boundaries; Patient physical assessment & 1:1 patient interview; Therapeutic conversation & active listening; Patient education & monitoring. Response: Patient was awake per police shift commander at 0300 and then went back to bed at 0600 and remained sleeping until 0745 then went to the Community Room. Patient returned to bed then went to the Group Meeting at 1130 after participating in snack time at 1100. Patient has not made any homicidal ideation statements or satanic roman catholic. Patient worked on the puzzle in the community room. Patient was pleasant and cooperative, and requested Nicotine Lozenges as needed. Patient started rapping to 2 peers in the TV Room but was using a great deal of profanity so was asked to stop when that occurred. Patient went to the Community Room then laid down on his bed until dinner time. Plan: Crisis interruption and stabilization in a safe and therapeutic environment, pending placement.
[2023-02-10 18:32] VITALS: RESP 14; O2SAT 98
[2023-02-10] MEDS: OLANZAPINE 5 MG TABLET PO SCH (19:25)
[2023-02-10 19:30] VITALS: BP 137/71; PULSE 102; RESP 18; TEMP 97.6; O2SAT 97
--- NOTE | 2023-02-10 23:03 | NUR ---
Nursing Progress Note: Problem: Currently on LPS awaiting placement. Orig. admit 10/10/22 d/t GD, homeless and unable to formulate a viable plan for skilled nursing and food, with homicidal ideations constantly. Pt has history of Schizophrenia, bipolar, anxiety, antisocial. Interventions: Provide medication administration & medication management; Maintained a safe & supportive environment; Clear & simple instructions; Direction & encouragement regarding performance of ADLs; monitored behaviors & maintained clear boundaries; Patient physical assessment & 1:1 patient interview; Therapeutic conversation & active listening; Patient education & monitoring. Response: Pt was agitated at change of shift, cussing and yelling loudly. Pt attempted to calm himself with headphones and stated that he was hearing voices and they were bothering him. Pt was aware that he was having trouble and requested prn, pt was given seroquel with poor effect and continued to escalate. Pt punched a wall in his room although he was making great effort to calm himself. PCT sat with patient and attempted to deescalate while provider was contacted. Pt was given his 2100 Zyprexa early. Pt did become calmer but denied medication was helping. Pt was given the remainder of his HS meds. Pt had a snack and went to bed. Plan: Crisis interruption and stabilization in a safe and therapeutic environment, pending placement.
[2023-02-11] MEDS: docusate sod 100mg capsule PO SCH ×2 (07:13→20:01)
[2023-02-11] MEDS: multivitamins, therapeutics tablet PO SCH (07:13)
[2023-02-11] MEDS: LORazepam 0.5 MG tablet PO SCH ×3 (07:13→20:01)
[2023-02-11] MEDS: OLANZapine 5mg rapidly disint. tablet PO SCH (07:14)
[2023-02-11] MEDS: NICOTINE POLACRILEX 2 MG LOZENGE BC PRN ×6 (07:14→20:23)
[2023-02-11] MEDS: busPIRone 5mg tablet PO SCH ×3 (07:14→20:01)
[2023-02-11 08:00] VITALS: BP 128/74; PULSE 93; RESP 16; TEMP 97.8; O2SAT 98
[2023-02-11] MEDS: quetiapine 100mg tablet PO SCH ×3 (13:00→20:01)
[2023-02-11] MEDS: LORazepam 1 MG tablet PO SCH (13:01)
--- NOTE | 2023-02-11 14:51 | NUR ---
Nursing Progress Note: Problem: Currently on LPS awaiting placement. Orig. admit 10/10/22 d/t GD, homeless and unable to formulate a viable plan for penitentiary and food, with homicidal ideations constantly. Pt has history of Schizophrenia, bipolar, anxiety, antisocial. Interventions: Provided 1:1 assessment with therapeutic communication and active listening; Provided medication administration/education/monitoring; Consult with MD Meneses obtained orders to restart Seroquel 150mg q AM, 1300 and 1700 that fell off on 02/06. Also obtained orders to increase dosage of scheduled Ativan 1200 to Ativan 1mg daily. Maintained a safe & supportive environment; Monitored behaviors & maintained clear boundaries; Monitored Q 15 minute safety checks. Response: Pt up pacing the halls at 0630 with headset on. Pt acknowledged this life insurance underwriter and asked for his medications and a "nicotine lozenge." Pt ate his breakfast, took medications as prescribed and cooperated with routine AM assessment. He then laid back down and appeared to be sleeping until snack time at 1100. Pt observed eating lunch, took afternoon medications then watched some TV. Patient was pleasant and cooperative throughout the shift. He requested Nicotine Lozenges as needed. Plan: Continue medications as prescribed while awaiting placement.
[2023-02-11 19:10] VITALS: RESP 16; O2SAT 97
[2023-02-11 19:14] VITALS: BP 109/56; PULSE 76; RESP 16; TEMP 97.6; O2SAT 97
[2023-02-11] MEDS: quetiapine 100mg tablet PO PRN (19:28)
[2023-02-11] MEDS: OLANZAPINE 5 MG TABLET PO SCH (20:01)
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
[2023-02-12] MEDS: docusate sod 100mg capsule PO SCH ×2 (07:24→20:01)
[2023-02-12] MEDS: NICOTINE POLACRILEX 2 MG LOZENGE BC PRN ×4 (07:24→18:22)
[2023-02-12] MEDS: quetiapine 100mg tablet PO SCH ×4 (07:25→20:01)
[2023-02-12] MEDS: OLANZapine 5mg rapidly disint. tablet PO SCH (07:25)
[2023-02-12] MEDS: busPIRone 5mg tablet PO SCH ×3 (07:25→16:35)
[2023-02-12] MEDS: multivitamins, therapeutics tablet PO SCH (07:25)
[2023-02-12] MEDS: LORazepam 0.5 MG tablet PO SCH ×5 (07:25→20:01)
[2023-02-12 07:54] VITALS: BP 100/53; PULSE 73; RESP 16; TEMP 97.9; O2SAT 99
[2023-02-12] MEDS: LORazepam 1 MG tablet PO SCH (12:43)
--- NOTE | 2023-02-12 15:40 | NUR ---
Nursing Progress Note: Problem: Currently on LPS awaiting placement. Orig. admit 10/10/22 d/t GD, homeless and unable to formulate a viable plan for usp and food, with homicidal ideations constantly. Pt has history of Schizophrenia, bipolar, anxiety, antisocial. Interventions: Pt seen by hospitalist today. Pt tells he swallowed metal a year ago and doesnt think it passed yet. Abdominal xray completed with normal results. Pt attempting to give urinalysis also per hospitalist orders. Response:Pt ambulates the halls with radio headsets on. Pt cooperative and thankful. Plan: Continue medications as prescribed while awaiting placement.
[2023-02-12 16:20] LABS: CLARITY,URINE CLEAR (Clear); COLOR,URINE STRAW (Yellow); GLUCOSE, URINE NEGATIVE (Neg); KETONES,URINE NEGATIVE (Neg); LEUKOCYTE ESTERASE ,URINE NEGATIVE (Neg); NITRITES, URINE NEGATIVE (Neg); OCCULT BLOOD,URINE NEGATIVE (Neg); PROTEIN,URINE NEGATIVE (Neg); UROBILINOGEN,URINE 0.2 E.U/dL (0.2-1.0)
[2023-02-12 16:46] LABS: UA COLLECTION TYPE CLN CATCH MIDSTREAM
[2023-02-12 19:07] VITALS: BP 154/70; PULSE 82; RESP 16; TEMP 98.4; O2SAT 99
[2023-02-12] MEDS: quetiapine 100mg tablet PO PRN (19:17)
[2023-02-12] MEDS: OLANZAPINE 5 MG TABLET PO SCH (20:01)
--- NOTE | 2023-02-13 03:51 | NUR ---
Nursing Progress Note: Problem: Currently on LPS awaiting placement. Orig. admit 10/10/22 d/t GD, homeless and unable to formulate a viable plan for snf and food, with homicidal ideations constantly. Pt has history of Schizophrenia, bipolar, anxiety, antisocial. Interventions: Provided 1:1 assessment with therapeutic communication and active listening; Provided medication administration/education/monitoring; Consult with MD Meneses obtained orders to restart Seroquel 150mg q AM, 1300 and 1700 that fell off on 02/06. Also obtained orders to increase dosage of scheduled Ativan 1200 to Ativan 1mg daily. Maintained a safe & supportive environment; Monitored behaviors & maintained clear boundaries; Monitored Q 15 minute safety checks. Response: Patient is pleasant and cooperative with care; compliant with medication. PRN Quetiapine provided per patient request for anxiety. He denies SI, HI, A/VH; appeared internally preoccupied and some delusional thought content expressed when he was talking with peers. Patient is social and participated in HS snack prior to bed; observed sleeping and does not appear to be having difficulty. Plan: Continue medications as prescribed while awaiting placement.
[2023-02-13] MEDS: NICOTINE POLACRILEX 2 MG LOZENGE BC PRN ×6 (06:32→20:58)
[2023-02-13 07:00] VITALS: RESP 12; O2SAT 99
[2023-02-13 07:11] VITALS: BP 117/79; PULSE 76; RESP 12; TEMP 97.9; O2SAT 99
[2023-02-13] MEDS: LORazepam 0.5 MG tablet PO SCH ×3 (07:23→20:01)
[2023-02-13] MEDS: busPIRone 5mg tablet PO SCH ×3 (07:23→15:56)
[2023-02-13] MEDS: docusate sod 100mg capsule PO SCH ×2 (07:24→20:01)
[2023-02-13] MEDS: OLANZapine 5mg rapidly disint. tablet PO SCH (07:25)
[2023-02-13] MEDS: multivitamins, therapeutics tablet PO SCH (07:25)
[2023-02-13] MEDS: quetiapine 100mg tablet PO SCH ×4 (07:25→20:02)
--- NOTE | 2023-02-13 09:19 | NUR ---
Sent updated notes to [facility] office (02/06/23-02/12/23). MARIA LUISA Villeda
[2023-02-13] MEDS: LORazepam 1 MG tablet PO SCH (12:09)
--- NOTE | 2023-02-13 12:25 | NUR ---
Nursing Progress Note: Problem : Pt admitted on 5150 for DTO from our ER. Pt reported that he constantly has thoughts of killing people. He does not know where he can live. He is homeless, does not eat and not wearing shoes. Pt has history of Schizophrenia; Bipolar; Anxiety; & Antisocial. Interventions : Maintained a safe and supportive environment, provided clear and simple instructions, attempted to orient to reality, monitored behaviors and need for intervention, and maintained Q 15min safety checks. Response : Received pt. up pacing in the hallway at the beginning of the shift wearing headphones, he approached the nurse's station and requested a PRN Nicotine Lozenge. Pt. attend breakfast in the Group Room and afterwards retreated back to bed as is his routine. He continues to be compliant with his mediations and is pleasant. Later, 1:1 was completed and pt. denied any mental health signs and symptoms. However, he appeared to be restless AEB again pacing in the hallway, and his scheduled anxiolytic medications were administered. Pt. then began making what appeared to be delusional statements about how his [place] follows satanic rituals. Pt. states, "I started doing it while I was in jail." Staff attempted to redirect pt., however he remains fixed in these beliefs. Pt. did not exhibit any agitated outbursts or increased episodes of irritability r/t his delusional thoughts. Will continue to monitor him closely. Plan : Pt. continues to require a safe and supportive environment and is awaiting placement.
[2023-02-13 19:00] VITALS: RESP 18; O2SAT 97
[2023-02-13 19:49] VITALS: BP 141/71; PULSE 91; RESP 18; TEMP 97.9; O2SAT 97
[2023-02-13] MEDS: OLANZAPINE 5 MG TABLET PO SCH (20:01)
--- NOTE | 2023-02-14 01:08 | NUR ---
Nursing Progress Note: Problem : Pt admitted on 5150 for DTO from our ER. Pt reported that he constantly has thoughts of killing people. He does not know where he can live. He is homeless, does not eat and not wearing shoes. Pt has history of Schizophrenia; Bipolar; Anxiety; & Antisocial. Interventions : Maintained a safe and supportive environment, provided clear and simple instructions, attempted to orient to reality, monitored behaviors and need for intervention, and maintained Q 15min safety checks. Response : Received pt. wearing headphones and pacing the lion . Right at the beginning of shift pt. requested PRN nicotine lozenge and it was provided. He spent most of his time in the recreation room and bedroom. Attended evening snack and social w/peers. Denies SI/HI, AH/VH. Cooperative and thankful. Compliant w/medications. Pt. overheard stating "I f-ing hate jews" out of no where, while standing outside of the recreation room. Pt. requested another PRN nicotine lozenge before returning to his room for the night. Observed and appears to be sleeping. Plan : Pt. continues to require a safe and supportive environment and is awaiting placement.
[2023-02-14] MEDS: NICOTINE POLACRILEX 2 MG LOZENGE BC PRN ×5 (06:43→18:38)
[2023-02-14 07:00] VITALS: RESP 16; O2SAT 97
[2023-02-14] MEDS: busPIRone 5mg tablet PO SCH ×3 (07:33→16:12)
[2023-02-14] MEDS: docusate sod 100mg capsule PO SCH ×2 (07:33→20:03)
[2023-02-14] MEDS: LORazepam 0.5 MG tablet PO SCH ×3 (07:33→20:02)
[2023-02-14] MEDS: multivitamins, therapeutics tablet PO SCH (07:34)
[2023-02-14] MEDS: OLANZapine 5mg rapidly disint. tablet PO SCH (07:34)
[2023-02-14] MEDS: quetiapine 100mg tablet PO SCH ×4 (07:34→20:03)
[2023-02-14 08:00] VITALS: BP 120/80; PULSE 80; RESP 16; TEMP 98.3; O2SAT 97
--- NOTE | 2023-02-14 09:29 | NUR ---
Reassessment: Pt continues eating well documented with 100% PO intake of regular meals while receiving double protein BIDBD and snacks meeting estimated nutrient needs. LBM 02/11 per EMR. No nutrition intervention at this time. Will continue to follow. Recommendations: 1. Continue regular diet; double eggs WB, double protein WS 2. Routine bowel care 3. Weekly scaled wts Addendum: 02/14/23 at [address]ñoz RD Amended: Links added.
[2023-02-14] MEDS: LORazepam 1 MG tablet PO SCH (12:23)
--- NOTE | 2023-02-14 15:06 | NUR ---
Nursing Progress Note: Problem : Pt admitted on 5150 for DTO from our ER. Pt reported that he constantly has thoughts of killing people. He does not know where he can live. He is homeless, does not eat and not wearing shoes. Pt has history of Schizophrenia; Bipolar; Anxiety; & Antisocial. Interventions : Maintained a safe and supportive environment, provided clear and simple instructions, attempted to orient to reality, monitored behaviors and need for intervention, and maintained Q 15min safety checks. Response : Received pt. sleeping in bed at the beginning of the shift, upon awakening he again immediately approached the nurse's station and requested a PRN Nicotine Lozenge. Pt. attend breakfast in the Group Room and afterwards retreated back to bed as is his routine. He continues to be compliant with his mediations and is pleasant. 1:1 was completed, pt. continues to deny all mental health s/s and is anxiously awaiting discharge. After lunch, pt. again began making what appeared to be delusional statements regarding satanic rituals and beliefs. He stated, "I need to make sure I'm doing everything I need to do because they're going to the feds for it for trying to get me to kill somebody." Staff again attempted to orient pt. to reality, however he remained fixed in these delusional beliefs. However, once pt. was administered his afternoon medications these statements stopped. Pt. did not exhibit any agitated outbursts or increased episodes of irritability r/t his delusional thoughts this shift. Will continue to monitor him closely. Plan : Pt. continues to require a safe and supportive environment and is awaiting placement.
[2023-02-14 19:00] VITALS: RESP 18; O2SAT 97
[2023-02-14 19:06] VITALS: BP 128/85; PULSE 93; RESP 18; TEMP 97; O2SAT 97
[2023-02-14] MEDS: OLANZAPINE 5 MG TABLET PO SCH (20:03)
--- NOTE | 2023-02-15 02:22 | NUR ---
Nursing Progress Note: Problem : Pt admitted on 515 for DTO from our ER. Pt reported that he constantly has thoughts of killing people. He does not know where he can live. He is homeless, does not eat and not wearing shoes. Pt has history of Schizophrenia; Bipolar; Anxiety; & Antisocial. Interventions : Maintained a safe and supportive environment, provided clear and simple instructions, attempted to orient to reality, monitored behaviors and need for intervention, and maintained Q 15min safety checks. Response : Received pt. up interacting appropriately with others at the beginning of the shift. He was pleasant and cooperative with taking ordered medications. When questioned by this junior underwriter regarding how he was feeling, pt. stated, "I'm alright." No delusional statements were made this shift. Pt. attend snack and sat up watching TV in the Group Room with his peers before retreating to bed. He appears to be resting comfortably. Plan : Pt. continues to require a safe and supportive environment and is awaiting placement. Addendum: 02/15/23 at 0251 by Danelle Figueroa RN Pt. awoke early reporting some insomnia and PRN Seroquel 100mg was administered, will continue to monitor.
[2023-02-15] MEDS: NICOTINE POLACRILEX 2 MG LOZENGE BC PRN ×6 (02:50→19:17)
[2023-02-15] MEDS: quetiapine 100mg tablet PO PRN ×3 (02:50→19:17)
[2023-02-15] MEDS: OLANZapine 5mg rapidly disint. tablet PO SCH (07:30)
[2023-02-15] MEDS: docusate sod 100mg capsule PO SCH ×2 (07:30→19:44)
[2023-02-15] MEDS: LORazepam 0.5 MG tablet PO SCH ×3 (07:30→19:44)
[2023-02-15] MEDS: multivitamins, therapeutics tablet PO SCH (07:30)
[2023-02-15] MEDS: busPIRone 5mg tablet PO SCH ×3 (07:31→16:18)
[2023-02-15] MEDS: quetiapine 100mg tablet PO SCH ×4 (07:34→19:44)
[2023-02-15 08:41] VITALS: BP 112/66; PULSE 89; RESP 18; TEMP 98; O2SAT 98
[2023-02-15] MEDS: LORazepam 1 MG tablet PO SCH (12:25)
--- NOTE | 2023-02-15 16:40 | NUR ---
Nursing Progress Note: Problem: Currently on LPS awaiting placement. Orig. admit 10/10/22 d/t GD, homeless and unable to formulate a viable plan for usp and food, with homicidal ideations constantly. Pt has history of Schizophrenia, bipolar, anxiety, and is antisocial. Interventions: Provide medication administration & medication management; Maintained a safe & supportive environment; Clear & simple instructions; Direction & encouragement regarding performance of ADLs; monitored behaviors & maintained clear boundaries; Patient physical assessment & 1:1 patient interview; Therapeutic conversation & active listening; Patient education & monitoring. Response: Patient was received when he was sleeping in his bed at 0630. Patient woke up at approximately 0720, got dressed and came out to request coffee to drink. Patient took his 0800 medications and ambulated in the hallway wearing headphones until breakfast. Patient reports Im doing well today. Patient assessment and interview was completed and he went to the Community Room to eat breakfast. Patient requested a Nicotine Lozenge right after breakfast. Patient slept after breakfast until 1240, then got up and ambulated in the hallway. After lunch at approximately 1335 the patient started with talk that contained foul language and homicidal ideation and satanic druze in the same conversation. The patient was given Seroquel 100mg orally at 1335 and the negative talk that the patient was saying stopped. Patient stayed awake after lunch watching TV in the TV Room and then rested in bed for a short period of time before dinner. Plan: Crisis interruption and stabilization in a safe and therapeutic environment, pending placement.
[2023-02-15 19:00] VITALS: RESP 16; O2SAT 97
[2023-02-15] MEDS: OLANZAPINE 5 MG TABLET PO SCH (19:44)
[2023-02-15 20:00] VITALS: BP 126/70; PULSE 94; RESP 16; TEMP 97.8; O2SAT 97
--- NOTE | 2023-02-16 05:58 | NUR ---
Nursing Progress Note: Problem: Currently on LPS awaiting placement. Orig. admit 10/10/22 d/t GD, homeless and unable to formulate a viable plan for custodial and food, with homicidal ideations constantly. Pt has history of Schizophrenia, bipolar, anxiety, and is antisocial. Interventions: one to one to establish rapport, therapeutic communication and use active listening. Administer medications/educate/monitoring results. Give clear and simple instructions. Monitor behavior, provide distraction, direction and positive reinforcement. Ensure pt. contracts for safety. Monitor every 15 minutes for safety. Response: Pt. listening to music on the headphones. Pt. asking for PRN Seroquel and a nicotine lozenge. Physician Gynecologist explained its too early and pt. understood. Pt. stated he is hearing derogatory voices and needs more than the music to distraction. Pt got his PRNs which helped him. Pt is medication adherent tonight and educated on medication importance. No explosive behaviors noted. Pt. denies SI/HI/VH at this time. AH continue and pt. understands they are not real. Pt has good results from PRNs and his HS medications. Pt is in bed resting quietly. Continue to monitor every 15 minutes for safety. Plan: Crisis interruption and stabilization in a safe and therapeutic environment, pending placement.
[2023-02-16] MEDS: quetiapine 100mg tablet PO SCH ×4 (07:31→19:39)
[2023-02-16] MEDS: NICOTINE POLACRILEX 2 MG LOZENGE BC PRN ×5 (07:32→18:48)
[2023-02-16] MEDS: busPIRone 5mg tablet PO SCH ×3 (07:32→16:27)
[2023-02-16] MEDS: OLANZapine 5mg rapidly disint. tablet PO SCH (07:32)
[2023-02-16] MEDS: LORazepam 0.5 MG tablet PO SCH ×3 (07:32→18:57)
[2023-02-16] MEDS: docusate sod 100mg capsule PO SCH ×2 (07:32→19:38)
[2023-02-16] MEDS: multivitamins, therapeutics tablet PO SCH (07:33)
[2023-02-16 08:00] VITALS: BP 122/78; PULSE 90; RESP 18; TEMP 97.7; O2SAT 98
[2023-02-16] MEDS: quetiapine 100mg tablet PO PRN ×2 (08:50→18:58)
--- NOTE | 2023-02-16 09:53 | NUR ---
PLACEMENT UPDATE Packet is at [facility], [facility], [facility], [facility], [facility], and [facility]. MARIA LUISA Villeda
[2023-02-16] MEDS: LORazepam 1 MG tablet PO SCH (12:06)
--- NOTE | 2023-02-16 16:31 | NUR ---
Nursing Progress Note: Problem: Currently on LPS awaiting placement. Orig. admit 10/10/22 d/t GD, homeless and unable to formulate a viable plan for jail and food, with homicidal ideations constantly. Pt has history of Schizophrenia, bipolar, anxiety, and is antisocial. Interventions: Provide medication administration & medication management; Maintained a safe & supportive environment; Clear & simple instructions; Direction & encouragement regarding performance of ADLs; monitored behaviors & maintained clear boundaries; Patient physical assessment & 1:1 patient interview; Therapeutic conversation & active listening; Patient education & monitoring. Response: Patient slept until approximately 0715 then was up and ambulating in the hallways. Patient requested coffee then took his medications. Patient appeared linear throughout the day with no communication regarding homicidal ideation or [facility]. Patient spent the day socializing with peers. Patient requested Seroquel this morning and then went to lie down in bed until snack time at 1100. Patient requested Nicotine Lozenges approximately every 2 hours and had an uneventful day. Patient also enjoyed showing some of his dance moves including the salsa. Plan: Crisis interruption and stabilization in a safe and therapeutic environment, pending placement. PLACEMENT UPDATE: Packet is at [facility], [facility], and [facility].
[2023-02-16 19:00] VITALS: RESP 17; O2SAT 97
[2023-02-16] MEDS: OLANZAPINE 5 MG TABLET PO SCH (19:38)
[2023-02-16 20:00] VITALS: BP 140/63; PULSE 85; RESP 17; TEMP 98.1; O2SAT 97
--- NOTE | 2023-02-17 05:23 | NUR ---
Nursing Progress Note: Problem: Currently on LPS awaiting placement. Orig. admit 10/10/22 d/t GD, homeless and unable to formulate a viable plan for [facility] and food, with homicidal ideations constantly. Pt has history of Schizophrenia, bipolar, anxiety, and is antisocial. Interventions: one to one to establish rapport, therapeutic communication and use active listening. Administer medications/educate/monitoring results. Give clear and simple instructions. Monitor behavior, provide distraction, direction and positive reinforcement. Ensure pt. contracts for safety. Monitor every 15 minutes for safety. Response: Pt. is having a difficult time with his voices. Requesting PRN, Seroquel 100mg and Ativan 0.5 mg given at 1858. HS medications given at 1945 and pt. stated the PRNs were not effective. Pt resting on his bed. Pt denies SI/HI/VH. Pt. has AH that can be very negative causing pt. to verbalize threats and use vulgar/derogatory words out loud. Pt. understands these are auditory hallucinations and apologizes for some of his actions. Pt educated on medication adherence. Pt. is more guarded today and minimal interaction with this information writer. Monitor closely for safety every 15 minutes. Plan: Crisis interruption and stabilization in a safe and therapeutic environment, pending placement.
[2023-02-17] MEDS: NICOTINE POLACRILEX 2 MG LOZENGE BC PRN ×4 (06:17→17:19)
[2023-02-17] MEDS: LORazepam 0.5 MG tablet PO SCH ×3 (07:46→20:16)
[2023-02-17] MEDS: quetiapine 100mg tablet PO SCH ×4 (07:46→20:17)
[2023-02-17] MEDS: multivitamins, therapeutics tablet PO SCH (07:47)
[2023-02-17] MEDS: busPIRone 5mg tablet PO SCH ×3 (07:47→15:22)
[2023-02-17] MEDS: docusate sod 100mg capsule PO SCH ×2 (07:47→20:17)
[2023-02-17] MEDS: OLANZapine 5mg rapidly disint. tablet PO SCH (07:48)
[2023-02-17 08:00] VITALS: BP 133/65; PULSE 91; RESP 16; TEMP 97.9; O2SAT 98
[2023-02-17] MEDS: quetiapine 100mg tablet PO PRN (08:55)
[2023-02-17] MEDS: LORazepam 1 MG tablet PO SCH (12:47)
--- NOTE | 2023-02-17 17:15 | NUR ---
Nursing Progress Note: Problem: Currently on LPS awaiting placement. Orig. admit 10/10/22 d/t GD, homeless and unable to formulate a viable plan for halfway and food, with homicidal ideations constantly. Pt has history of Schizophrenia, bipolar, anxiety, and is antisocial. Interventions: Provide medication administration & medication management; Maintained a safe & supportive environment; Clear & simple instructions; Direction & encouragement regarding performance of ADLs; monitored behaviors & maintained clear boundaries; Patient physical assessment & 1:1 patient interview; Therapeutic conversation & active listening; Patient education & monitoring. Response: Received patient when he was awake and ambulating in the hallway this morning. The patient was laughing very loudly while wearing headphones and was in the TV Room. Patient came out of there and took his scheduled medications, then went to the Community Room and ate breakfast. Patient requested a Nicotine Lozenge, and when this Sales Representative Advertising left the patient in the Community Room the patient immediately attempted to elope by pulling on the handle of the fire door. The alarm sounded and this Sales Representative Advertising immediately went to the Community Room and spoke with the patient. When the patient was asked why he pulled on the fire door he responded I just touched the handle. The patient was then informed that I understood he would like to go to [facility] to be near his family, which the patient agreed to. Patient received a Seroquel at 0900, secondary to pacing and multiple tangents speaking about homicidal ideation and then telling others The FBI contracted with me to be a [place]. Patient went to lay down in bed at approximately 1000 then slept until 1130 and ate lunch. Patient was awake this afternoon, talking with others and pacing back and forth in and out of the TV Room then asking about another Seroquel at 1345, and was informed again that he received Seroquel at 1200 and it was too early for the prn dose at that time. Plan: Crisis interruption and stabilization in a safe and therapeutic environment, pending placement. PLACEMENT UPDATE: Packet is at [facility], and [facility].
--- NOTE | 2023-02-17 17:37 | NUR ---
Late Entry 02/16/23 at 1730 JENN Jerome reported that she entered the patient's room and found the patient with a blanket wrapped around his neck and tightening the ends of the blanket around his neck at the time she entered the room. Patient was immediately informed to loosen the blanket from around his neck and the blanket was removed from the patient's room. Alexandre Guy RN and this Pneumatic Tube Operator entered the patient's room immediately after the incident was discovered by Queenie to speak with the patient. Patient was asked what was his intent when he put the blanket around his neck and was observed pulling at both ends of the blanket to tighten it around his neck. The patient replied "I was doing it to get high." Patient denied Suicidal Ideation. Patient was asked to refrain from doing this practice. Patient agreed to stop putting blankets around his neck and tightening them, and the patient agreed.
[2023-02-17 18:31] VITALS: RESP 14; O2SAT 98
[2023-02-17 19:00] VITALS: BP 128/68; PULSE 87; RESP 14; TEMP 98.2; O2SAT 98
[2023-02-17] MEDS: OLANZAPINE 5 MG TABLET PO SCH (20:16)
--- NOTE | 2023-02-17 20:25 | NUR ---
Nursing Progress Note: Problem: Currently on LPS awaiting placement. Orig. admit 10/10/22 d/t GD, homeless and unable to formulate a viable plan for intermediate and food, with homicidal ideations constantly. Pt has history of Schizophrenia, bipolar, anxiety, and is antisocial. Interventions: Provide medication administration & medication management; Maintained a safe & supportive environment; Clear & simple instructions; Direction & encouragement regarding performance of ADLs; monitored behaviors & maintained clear boundaries; Patient physical assessment & 1:1 patient interview; Therapeutic conversation & active listening; Patient education & monitoring. Response: Pt was sitting on the floor in the hallway talking with a peer at change of shift. Pt is talking about when he gets out of here he wont remember any of us. Pt is calm, gives minimal response to questions. Pt denies a/vh. Pt was cooperative with vitals. Pt requested to watch [employer] but didnt have a password so he spent time watching [employer] videos and was content with this. Pt took HS meds and had snacks before going to bed. Plan: Crisis interruption and stabilization in a safe and therapeutic environment, pending placement. PLACEMENT UPDATE: Packet is at [facility], [place], [facility], and [facility].
[2023-02-18 07:00] VITALS: RESP 16; O2SAT 96
[2023-02-18] MEDS: LORazepam 0.5 MG tablet PO SCH ×3 (07:30→20:10)
[2023-02-18] MEDS: multivitamins, therapeutics tablet PO SCH (07:30)
[2023-02-18] MEDS: docusate sod 100mg capsule PO SCH ×2 (07:31→20:10)
[2023-02-18] MEDS: busPIRone 5mg tablet PO SCH ×3 (07:31→15:52)
[2023-02-18] MEDS: quetiapine 100mg tablet PO SCH ×4 (07:31→20:14)
[2023-02-18 08:00] VITALS: BP 135/60; PULSE 81; RESP 16; TEMP 98.6; O2SAT 97
[2023-02-18] MEDS: olanzapine 10mg tablet PO SCH (08:39)
[2023-02-18] MEDS: NICOTINE POLACRILEX 2 MG LOZENGE BC PRN ×4 (09:11→18:05)
[2023-02-18] MEDS: LORazepam 1 MG tablet PO SCH (12:12)
--- NOTE | 2023-02-18 17:00 | NUR ---
Nursing Progress Note: Chan Problem: Patient was admitted here as a 5150 for DTS/DTO. Patient has thoughts of hanging himself and/or killing others. Patient is homeless. Patient has a history of Schizophrenia and alcohol and other drug abuse. Patient has thoughts of hanging himself with a rope or a chain. Interventions: Maintained a safe and supportive environment, provided clear and simple instructions, attempted to orient to reality, monitored behaviors and provided structure and limit setting, obtained orders for seclusion and chemical restraints, provided medications as needed. LOS provided for safety. Response: Pt. received awake walking on the unit. He denies SI, HI, AH, VH and denies having thoughts of self-harm. Pt. ate breakfast in the community room and took his medications without hesitation. He was observed socializing with cohorts and napped X1. At 1330 pt. was found standing behind his curtain with a blanket around his neck area, which he pulled away quickly. Pt. reports Im doing it because I want some dope, a shot of Meth, Im used to shooting it in the streets he denies anxiety or thoughts of self-harm, stating Im not trying to kill myself Im doing to get high Pt. was left with a staff member, while this pattern chart writer spoke to provider. Provider placed pt. on LOS for safety. Pt. remained on LOS throughout the shift without further incident. Pt. typically presents well groomed, and well dressed in street clothes, but today his hair is un combed and clothes look slightly disheveled. Plan: Pt. requires medication adjustments and a safe and supportive environment along with close monitoring for patient and staff safety.
[2023-02-18 19:00] VITALS: BP 132/88; PULSE 97; RESP 14; TEMP 98.2; O2SAT 96
--- NOTE | 2023-02-19 03:06 | NUR ---
Nursing Progress Note: Problem: Currently on LPS awaiting placement. Orig. admit 10/10/22 d/t GD, homeless and unable to formulate a viable plan for longterm and food, with homicidal ideations constantly. Pt has history of Schizophrenia, bipolar, anxiety, and is antisocial. Interventions: Provide medication administration & medication management; Maintained a safe & supportive environment; Clear & simple instructions; Direction & encouragement regarding performance of ADLs; monitored behaviors & maintained clear boundaries; Patient physical assessment & 1:1 patient interview; Therapeutic conversation & active listening; Patient education & monitoring. Response: Patient is pleasant and cooperative with care; compliant with medication. Patient denies SI, HI, A/VH this shift; appeared guarded and responding minimally this shift. Patient isolated to his room, listening to headphones. No incidents of tying anything around his neck this shift; remains LOS for safety. Patient was provided HS snack prior to bed; observed sleeping and does not appear to be having difficulty. Plan: Crisis interruption and stabilization in a safe and therapeutic environment, pending placement. PLACEMENT UPDATE: Packet is at [facility], [facility], [facility], and [facility].
[2023-02-19] MEDS: NICOTINE POLACRILEX 2 MG LOZENGE BC PRN ×6 (06:03→20:55)
[2023-02-19 07:00] VITALS: RESP 16; O2SAT 99
[2023-02-19] MEDS: busPIRone 5mg tablet PO SCH ×3 (07:43→16:25)
[2023-02-19] MEDS: olanzapine 10mg tablet PO SCH (07:43)
[2023-02-19] MEDS: multivitamins, therapeutics tablet PO SCH (07:43)
[2023-02-19] MEDS: quetiapine 100mg tablet PO SCH ×4 (07:43→20:56)
[2023-02-19] MEDS: docusate sod 100mg capsule PO SCH ×2 (07:43→20:57)
[2023-02-19] MEDS: LORazepam 0.5 MG tablet PO SCH ×3 (07:43→20:56)
[2023-02-19 08:00] VITALS: BP 134/65; PULSE 81; RESP 16; TEMP 98.3; O2SAT 99
[2023-02-19] MEDS: LORazepam 1 MG tablet PO SCH (12:09)
[2023-02-19] MEDS: buprenorphine/naloxone 2-0.5mg sublingual tablet SL SCH (16:50)
--- NOTE | 2023-02-19 17:02 | NUR ---
Nursing Progress Note: Problem: Pt admitted on 5150 for DTO from our ER. Pt reported that he constantly has thoughts of killing people. He does not know where he can live. He is homeless, does not eat and not wearing shoes. Pt has history of Schizophrenia, bipolar,anxiety,antisocial. Interventions: 1:1 assessment, therapeutic conversation, active listening, medication administration/education/monitoring, ensured contract for safety, behavior monitoring and intervention as needed; provided distraction, redirection, reality orientation, positive reinforcement, and line of sight level of observation. Response: Pt was up before breakfast pacing the unit. Pt was cooperative with morning medications. Pt denied depression, SI/HI/AH/VH. Pt did c/o having "cravings" for drugs. Pt states that he was started on Suboxone in skilled nursing, that they just hand it out to everyone because they would rather have them on their controlled pharmaceutical meds than have them seeking out Heroin or Fentanyl. Pt received new orders for Suboxone 2-0.5 mg BID @ 0800 & 1700, and Depakote ER 500 mg PO HS. Pt continues on LOS for risk of self-injurious behavior. Plan: Pt is conserved and in need of further medication adjustment and monitoring while awaiting placement.
--- NOTE | 2023-02-19 18:30 | NUR ---
Patient is line of sight to prevent strangulation attempts.
[2023-02-19 19:00] VITALS: RESP 18; O2SAT 98
[2023-02-19 20:00] VITALS: BP 126/69; PULSE 86; RESP 18; TEMP 98.2; O2SAT 98
--- NOTE | 2023-02-19 20:05 | NUR ---
Nursing Progress Note: Problem: Pt admitted on 5150 for DTO from our ER. Pt reported that he constantly has thoughts of killing people. He does not know where he can live. He is homeless, does not eat and not wearing shoes. Pt has history of Schizophrenia, bipolar,anxiety,antisocial. Interventions: 1:1 assessment, therapeutic conversation, active listening, medication administration/education/monitoring, ensured contract for safety, behavior monitoring and intervention as needed; provided distraction, redirection, reality orientation, positive reinforcement, and line of sight level of observation. Response: This patient is about the unit following shift change. He socializes with peers. Patient watches television. 1:1 Interview in recreation room. The patient is well oriented. He tells this screen writer "I'm alright, I'm doing good." He denies S/I, H/I, or any hallucinations. Patient tells this screen writer he wants to get out of here and study psychology, philosophy, business law, and HVAC among other things. The patient speaks in a loud voice, he is not labile. He desires nicotine with night medications. Plan: Pt is conserved and in need of further medication adjustment and monitoring while awaiting placement.
[2023-02-19] MEDS ORDERED: divalproex sod 250mg ER (24-hour) tablet PO SCH (21:00)
[2023-02-20] MEDS ORDERED: quetiapine 100mg tablet PO ONE
--- NOTE | 2023-02-20 00:05 | NUR ---
Patient is awake. He requests additional Seroquel for sleep. Quincy Jay contacted by [employer]. Order approved. for Seroquel 200 mg PO.
[2023-02-20] MEDS: NICOTINE POLACRILEX 2 MG LOZENGE BC PRN ×5 (06:42→20:09)
[2023-02-20 07:00] VITALS: RESP 14; O2SAT 97
[2023-02-20] MEDS: LORazepam 0.5 MG tablet PO SCH ×3 (07:11→20:09)
[2023-02-20] MEDS: buprenorphine/naloxone 2-0.5mg sublingual tablet SL SCH ×2 (07:12→17:19)
[2023-02-20] MEDS: quetiapine 100mg tablet PO SCH ×4 (07:12→20:09)
[2023-02-20] MEDS: multivitamins, therapeutics tablet PO SCH (07:12)
[2023-02-20] MEDS: olanzapine 10mg tablet PO SCH (07:12)
[2023-02-20] MEDS: busPIRone 5mg tablet PO SCH ×3 (07:12→16:56)
[2023-02-20] MEDS: docusate sod 100mg capsule PO SCH ×2 (07:12→20:09)
[2023-02-20 07:46] VITALS: BP 145/74; PULSE 76; RESP 14; TEMP 98; O2SAT 97
--- NOTE | 2023-02-20 07:48 | NUR ---
Pt is in the shower, pt continues on LOS.
[2023-02-20] MEDS: LORazepam 1 MG tablet PO SCH (12:00)
--- NOTE | 2023-02-20 14:20 | NUR ---
Sent updated notes (02/13-02/19) to [facility] office. MARIA LUISA Villeda
--- NOTE | 2023-02-20 15:55 | NUR ---
Nursing Progress Note: Problem: Pt admitted on 5150 for DTO from our ER. Pt reported that he constantly has thoughts of killing people. He does not know where he can live. He is homeless, does not eat and not wearing shoes. Pt has history of Schizophrenia, bipolar,anxiety,antisocial. Interventions: 1:1 assessment, therapeutic conversation, active listening, medication administration/education/monitoring, ensured contract for safety, behavior monitoring and intervention as needed; provided distraction, redirection, reality orientation, limit setting, positive reinforcement, and Q15 minute safety checks Response: Pt was taken off of line of sight and switched back to Q 15 minute safety checks this morning at 0955. Pt denies SI. Pt showered today. Pt was pleasant and sociable. Pt does become elevated during conversations and makes delusional statements. Pt believes that there is a manslaughter charge against him and that he was left shares by the seo marketing specialist of the [employer] [facility] because the seo marketing specialist believed he was a good person. Pt is hyperverbal, pt is animated, pt is somewhat intrusive with his new roommate. Pt is easily redirected and responds well to reality orientation and positive reinforcement. Pt makes statements about his life goals and seems to want to be a good person. Pt does not wish to return to jail. Pt is hopeful about his future. Pt requested nicotine lozenges at 0642, 0854, & 1113. Pt's Depakote was increased to 1000 mg HS. Plan: Pt is conserved and in need of further medication adjustment and monitoring while awaiting placement.
[2023-02-20 19:00] VITALS: BP 125/81; PULSE 101; RESP 18; TEMP 98.2; O2SAT 98
[2023-02-20] MEDS: divalproex sod 250mg ER (24-hour) tablet PO SCH (20:10)
--- NOTE | 2023-02-21 03:15 | NUR ---
Nursing Progress Note: Chan Problem: Pt admitted on 5150 for DTO from our ER. Pt reported that he constantly has thoughts of killing people. He does not know where he can live. He is homeless, does not eat and not wearing shoes. Pt has history of Schizophrenia, bipolar,anxiety,antisocial. Interventions: 1:1 assessment, therapeutic conversation, active listening, medication administration/education/monitoring, ensured contract for safety, behavior monitoring and intervention as needed; provided distraction, redirection, reality orientation, limit setting, positive reinforcement, and Q15 minute safety checks Response: Received pt pacing with headphones on. Pt is pleasant and cooperative. Observed watching TV with peers, participated in snacks and took all HS medications. Denies SI and states he always hears voices in his head. Pt to bed shortly after med pass and is currently sleeping. Plan: Pt is conserved and in need of further medication adjustment and monitoring while awaiting placement.
[2023-02-21 07:00] VITALS: RESP 16; O2SAT 97
[2023-02-21] MEDS: buprenorphine/naloxone 2-0.5mg sublingual tablet SL SCH ×2 (07:16→16:50)
[2023-02-21] MEDS: quetiapine 100mg tablet PO SCH ×4 (07:16→20:07)
[2023-02-21] MEDS: LORazepam 0.5 MG tablet PO SCH ×3 (07:17→20:07)
[2023-02-21] MEDS: busPIRone 5mg tablet PO SCH ×3 (07:17→16:50)
[2023-02-21] MEDS: olanzapine 10mg tablet PO SCH (07:17)
[2023-02-21] MEDS: multivitamins, therapeutics tablet PO SCH (07:17)
[2023-02-21] MEDS: docusate sod 100mg capsule PO SCH ×2 (07:17→20:07)
[2023-02-21 08:00] VITALS: BP 114/50; PULSE 72; RESP 16; TEMP 98.5; O2SAT 95
[2023-02-21] MEDS: NICOTINE POLACRILEX 2 MG LOZENGE BC PRN ×5 (08:49→19:31)
[2023-02-21] MEDS: LORazepam 1 MG tablet PO SCH (12:55)
--- NOTE | 2023-02-21 16:09 | NUR ---
Nursing Progress Note: Problem: Pt admitted on 5150 for DTO from our ER. Pt reported that he constantly has thoughts of killing people. He does not know where he can live. He is homeless, does not eat and not wearing shoes. Pt has history of Schizophrenia, bipolar,anxiety,antisocial. Interventions: 1:1 assessment, therapeutic conversation, active listening, medication administration/education/monitoring, ensured contract for safety, behavior monitoring and intervention as needed; provided distraction, redirection, reality orientation, limit setting, positive reinforcement, and Q15 minute safety checks Response: Pt slept until breakfast came. He was cooperative with his medications. Pt was less restless and more calm today. Pt did not have any verbal outbursts. This RN did not hear him make any delusional statements. No unsafe behaviors noted. Pt socialized with peers. Pt's mom brought in pizzas and noncaffeinated sodas from [employer] today for everyone to enjoy at afternoon snack time. Pt called his mom and thanked her. Plan: Pt is conserved and in need of further medication adjustment and monitoring while awaiting placement.
[2023-02-21] MEDS: divalproex sod 250mg ER (24-hour) tablet PO SCH (20:08)
[2023-02-21 20:12] VITALS: BP 139/58; PULSE 82; RESP 17; TEMP 97.6; O2SAT 95
--- NOTE | 2023-02-21 23:21 | NUR ---
Nursing Progress Note: Chan Ramos Problem: Pt admitted on 5150 for DTO from our ER. Pt reported that he constantly has thoughts of killing people. He does not know where he can live. He is homeless, does not eat and not wearing shoes. Pt has history of Schizophrenia, bipolar,anxiety,antisocial. Interventions: 1:1 assessment, therapeutic conversation, active listening, medication administration/education/monitoring, ensured contract for safety, behavior monitoring and intervention as needed; provided distraction, redirection, reality orientation, limit setting, positive reinforcement, and Q15 minute safety checks Response: Pt pacing at change of shift. He was smiling and was pleasant with this science writer. He said his mom brought pizza and it was really good. Pt denied SI and AH/VH. He declined snack and took all HS medications without issue. No verbal outbursts or delusional statements made this shift. He is currently sleeping. Will continue to monitor. Plan: Pt is conserved and in need of further medication adjustment and monitoring while awaiting placement.
[2023-02-22] MEDS: docusate sod 100mg capsule PO SCH ×2 (07:26→20:13)
[2023-02-22] MEDS: multivitamins, therapeutics tablet PO SCH (07:26)
[2023-02-22] MEDS: LORazepam 0.5 MG tablet PO SCH ×3 (07:26→20:12)
[2023-02-22] MEDS: quetiapine 100mg tablet PO SCH ×4 (07:26→20:14)
[2023-02-22] MEDS: busPIRone 5mg tablet PO SCH ×3 (07:26→16:56)
[2023-02-22] MEDS: buprenorphine/naloxone 2-0.5mg sublingual tablet SL SCH ×2 (07:26→16:57)
[2023-02-22] MEDS: NICOTINE POLACRILEX 2 MG LOZENGE BC PRN ×5 (07:26→19:37)
[2023-02-22] MEDS: olanzapine 10mg tablet PO SCH (07:27)
[2023-02-22 08:00] VITALS: BP 122/65; PULSE 90; RESP 14; TEMP 97.8; O2SAT 98
[2023-02-22] MEDS: LORazepam 1 MG tablet PO SCH (12:59)
--- NOTE | 2023-02-22 16:43 | NUR ---
Nursing Progress Note: Problem: Currently on LPS awaiting placement. Orig. admit 10/10/22 d/t GD, homeless and unable to formulate a viable plan for [facility] and food, with homicidal ideations constantly. Pt has history of Schizophrenia, bipolar, anxiety, and is antisocial. Interventions: Provide medication administration & medication management; Maintained a safe & supportive environment; Clear & simple instructions; Direction & encouragement regarding performance of ADLs; monitored behaviors & maintained clear boundaries; Patient physical assessment & 1:1 patient interview; Therapeutic conversation & active listening; Patient education & monitoring. Response: Patient did not wake up until 0730 and took his scheduled medications at this time. Patient reported he slept well, and a Patient Assessment and Interview was completed at this time. Patient ate breakfast in the Community Room and asked for a Nicotine Lozenge at this time. Patient did not display homicidal ideation or any delusions throughout the day. Patient slept after his snack break this morning from 1100 to 1300, then ate lunch in the Community Room. Patient ambulated in the hallways wearing headphones after lunch and again requested a Nicotine Lozenge. Patient denies SI/AV/VH. Patient has been kind and cooperative throughout the day. Plan: Crisis interruption and stabilization in a safe and therapeutic environment, pending placement. PLACEMENT UPDATE: Packet is at [facility], [facility], and [facility].
[2023-02-22 19:00] VITALS: RESP 16; O2SAT 98
[2023-02-22 20:00] VITALS: BP 126/70; PULSE 74; RESP 16; TEMP 97.5; O2SAT 98
[2023-02-22] MEDS: divalproex sod 250mg ER (24-hour) tablet PO SCH (20:13)
--- NOTE | 2023-02-23 01:02 | NUR ---
Nursing Progress Note: Chan Ramos Problem: Pt admitted on 5150 for DTO from our ER. Pt reported that he constantly has thoughts of killing people. He does not know where he can live. He is homeless, does not eat and not wearing shoes. Pt has history of Schizophrenia, bipolar,anxiety,antisocial. Interventions: 1:1 assessment, therapeutic conversation, active listening, medication administration/education/monitoring, ensured contract for safety, behavior monitoring and intervention as needed; provided distraction, redirection, reality orientation, limit setting, positive reinforcement, and Q15 minute safety checks Response: Pt. walking the unit at change of shift. He is pleasant and cooperative. Sta Plan: Pt is conserved and in need of further medication adjustment and monitoring while awaiting placement.
--- NOTE | 2023-02-23 01:04 | NUR ---
Nursing Progress Note: Chan Ramos Problem: Pt admitted on 5150 for DTO from our ER. Pt reported that he constantly has thoughts of killing people. He does not know where he can live. He is homeless, does not eat and not wearing shoes. Pt has history of Schizophrenia, bipolar,anxiety,antisocial. Interventions: 1:1 assessment, therapeutic conversation, active listening, medication administration/education/monitoring, ensured contract for safety, behavior monitoring and intervention as needed; provided distraction, redirection, reality orientation, limit setting, positive reinforcement, and Q15 minute safety checks Response: Pt. walking the unit at change of shift. He is pleasant and cooperative. PRN nicotine lozenge provided . Observed sitting in room while wearing radio headphones. Attended evening snack and socialized with room mate. Returned to room shortly after snack. Compliant with medications. Pt. states "he's doing alright" and denies SI/HI, AH/VH. No delusional statements noted on this shift. Observed and appears to be sleeping without difficulty. Plan: Pt is conserved and in need of further medication adjustment and monitoring while awaiting placement.
[2023-02-23] MEDS: busPIRone 5mg tablet PO SCH ×3 (07:42→16:53)
[2023-02-23] MEDS: LORazepam 0.5 MG tablet PO SCH ×3 (07:42→20:15)
[2023-02-23] MEDS: multivitamins, therapeutics tablet PO SCH (07:43)
[2023-02-23] MEDS: quetiapine 100mg tablet PO SCH ×4 (07:43→20:15)
[2023-02-23] MEDS: docusate sod 100mg capsule PO SCH ×2 (07:43→20:15)
[2023-02-23] MEDS: olanzapine 10mg tablet PO SCH (07:43)
[2023-02-23] MEDS: buprenorphine/naloxone 2-0.5mg sublingual tablet SL SCH ×2 (07:43→16:53)
[2023-02-23 08:00] VITALS: BP 136/56; PULSE 82; RESP 14; TEMP 98.2; O2SAT 98
[2023-02-23] MEDS: LORazepam 1 MG tablet PO SCH (12:28)
[2023-02-23] MEDS: NICOTINE POLACRILEX 2 MG LOZENGE BC PRN ×2 (13:13→19:10)
--- NOTE | 2023-02-23 17:11 | NUR ---
Nursing Progress Note: Problem: Currently on LPS awaiting placement. Orig. admit 10/10/22 d/t GD, homeless and unable to formulate a viable plan for [facility] and food, with homicidal ideations constantly. Pt has history of Schizophrenia, bipolar, anxiety, and is antisocial. Interventions: Provide medication administration & medication management; Maintained a safe & supportive environment; Clear & simple instructions; Direction & encouragement regarding performance of ADLs; monitored behaviors & maintained clear boundaries; Patient physical assessment & 1:1 patient interview; Therapeutic conversation & active listening; Patient education & monitoring. Response: Received patient when he woke up at 0645 this morning. Patients medications were administered and patient requested coffee to drink. Patient had a patient assessment and interview and reported he has been sleeping much better at night and during his daytime naps. Patient is kind and cooperative throughout the day and has not been responding to hearing voices or speaking about his homicidal ideation. Patient slept for approximately 3 hours after breakfast and 4 hours after lunch. Patient only requested Nicotine Lozenges as a prn today, and no other medications were administered as a prn. Plan: Crisis interruption and stabilization in a safe and therapeutic environment, pending placement.
[2023-02-23 18:48] VITALS: RESP 14; O2SAT 98
[2023-02-23 19:56] VITALS: BP 110/56; PULSE 73; RESP 16; TEMP 97.4; O2SAT 95
[2023-02-23] MEDS: divalproex sod 250mg ER (24-hour) tablet PO SCH (20:15)
--- NOTE | 2023-02-23 23:21 | NUR ---
Nursing Progress Note: Problem: Currently on LPS awaiting placement. Orig. admit 10/10/22 d/t GD, homeless and unable to formulate a viable plan for intermediate and food, with homicidal ideations constantly. Pt has history of Schizophrenia, bipolar, anxiety, and is antisocial. Interventions: Provide medication administration & medication management; Maintained a safe & supportive environment; Clear & simple instructions; Direction & encouragement regarding performance of ADLs; monitored behaviors & maintained clear boundaries; Patient physical assessment & 1:1 patient interview; Therapeutic conversation & active listening; Patient education & monitoring. Response: Pt was pleasant and cooperative at change of shift. Pt spent time talking with his roommate and states he is doing well. Pt asked for a Quran, stating "they only have Bibles here and I want to study other religions. I like reading books that I learn from. I don't have books in here that are just for fun reading. Even Anne has the Quran." Told patient we would find out for him. Pt is calm, cooperative, and pleasant this evening. Pt took HS meds and ate a snack before going to bed. Plan: Crisis interruption and stabilization in a safe and therapeutic environment, pending placement.
[2023-02-24 07:00] VITALS: RESP 14; O2SAT 98
[2023-02-24] MEDS: olanzapine 10mg tablet PO SCH (07:31)
[2023-02-24] MEDS: quetiapine 100mg tablet PO SCH ×5 (07:31→21:00)
[2023-02-24] MEDS: docusate sod 100mg capsule PO SCH ×3 (07:32→20:58)
[2023-02-24] MEDS: busPIRone 5mg tablet PO SCH ×3 (07:32→17:18)
[2023-02-24] MEDS: multivitamins, therapeutics tablet PO SCH (07:32)
[2023-02-24] MEDS: buprenorphine/naloxone 2-0.5mg sublingual tablet SL SCH ×2 (07:32→16:58)
[2023-02-24] MEDS: LORazepam 0.5 MG tablet PO SCH ×4 (07:32→20:57)
[2023-02-24] MEDS: NICOTINE POLACRILEX 2 MG LOZENGE BC PRN ×2 (07:39→11:15)
[2023-02-24 08:00] VITALS: BP 179/84; PULSE 76; RESP 14; TEMP 98.2; O2SAT 98
--- NOTE | 2023-02-24 09:53 | NUR ---
Reassessment: Per EMR pt refused breakfast this morning however overall pt continues eating well documented with mostly 100% PO intake of regular meals while receiving double protein BIDBD and snacks meeting estimated nutrient needs. LBM 02/23 per EMR. No nutrition intervention at this time. Will continue to follow. Recommendations: 1. Continue regular diet; double eggs WB, double protein WS 2. Routine bowel care 3. Weekly scaled wts Addendum: 02/24/23 at [address] Amended: Links added.
[2023-02-24] MEDS: LORazepam 1 MG tablet PO SCH (12:17)
[2023-02-24 16:37] VITALS: BP 142/74; PULSE 94; RESP 16; TEMP 98.2; O2SAT 94
[2023-02-24 16:54] LABS: BASOPHILS % (AUTO) 0.2 % (0-1); EOSINOPHILS % (AUTO) 0.2 % (0-6); HEMATOCRIT 49.5 % (42.0-52.0); HEMOGLOBIN 16.6 g/dl (14.0-17.9); LYMPHOCYTES # (AUTO) 1.4 X10'3 (1.1-4.8); LYMPHOCYTES % (AUTO) 10.6 % (21-51); MEAN CORPUSCULAR HEMOGLOBIN 30.8 PG (27.0-31.0); MEAN CORPUSCULAR HGB CONC 33.6 g/dL (33.0-36.5); MEAN CORPUSCULAR VOLUME 91.7 FL (78-98); MEAN PLATELET VOLUME 8.7 FL (7.4-10.4); MONOCYTES # (AUTO) 0.4 X10'3 (0-0.9); MONOCYTES % (AUTO) 3.3 % (2-12); NEUTROPHILS # (AUTO) 11.4 X10'3 (1.8-7.7); NEUTROPHILS % (AUTO) 85.7 % (42-75); PLATELET COUNT 175 X10'3 (140-440); RED CELL DISTRIBUTION WIDTH 13.4 % (11.5-14.5); WHITE BLOOD COUNT 13.3 X10'3 (4.5-11.0)
[2023-02-24 17:10] LABS: ALANINE AMINOTRANSFERASE 21 U/L (12-78); ALBUMIN 4.3 G/DL (3.4-5.0); ALBUMIN/GLOBULIN RATIO 1.2 (1.1-1.5); ALKALINE PHOSPHATASE 86 IU/L (46-116); ANION GAP 10 (8-16); ASPARTATE AMINO TRANSFERASE 16 U/L (10-37); BILIRUBIN,TOTAL 0.3 MG/DL (0.1-1.0); BLOOD UREA NITROGEN 17 MG/DL (7-18); BUN/CREATININE RATIO 17.9 (10.0-20.0); CALCIUM 9.1 MG/DL (8.5-10.1); CHLORIDE 103 MMOL/L (99-107); CREATININE 0.95 MG/DL (0.60-1.10); GLUCOSE 113 MG/DL (70-104); POTASSIUM 3.7 MMOL/L (3.5-5.1); SODIUM 139 MMOL/L (135-145); TOTAL CARBON DIOXIDE 26.2 MMOL/L (24-32); TOTAL PROTEIN 7.9 G/DL (6.4-8.2); VALPROATE 53 UG/ML (50-100); eGFR > 90 ML/MIN
--- NOTE | 2023-02-24 17:25 | NUR ---
Nursing Progress Note: Problem: Currently on LPS awaiting placement. Orig. admit 10/10/22 d/t GD, homeless and unable to formulate a viable plan for intermediate and food, with homicidal ideations constantly. Pt has history of Schizophrenia, bipolar, anxiety, and is antisocial. Interventions: Provide medication administration & medication management; Maintained a safe & supportive environment; Clear & simple instructions; Direction & encouragement regarding performance of ADLs; monitored behaviors & maintained clear boundaries; Patient physical assessment & 1:1 patient interview; Therapeutic conversation & active listening; Patient education & monitoring. Response: Pt asleep at change of shift. Met with RN for 1:1 assessment at the bedside. He is fatigued, and reports that he is not feeling well. C/O nausea, several episodes of emesis, afebrile. Hypertensive this AM. Pt refused all meals and chicken broth, only drinking water. Presents as guarded, irritable I just want to be left alone, gives minimal answers, denies A/VH, S/I, H/I. No delusions noted. Pt spent the majority of the shift in bed, as he is not feeling well. Called Dr. Whitaker re nausea/vomiting; hold 1700 Suboxone. Order Depakote level, CBC, CMP. Labs completed. Plan: Crisis interruption and stabilization in a safe and therapeutic environment, pending placement.
[2023-02-24 18:53] VITALS: RESP 16; O2SAT 98
[2023-02-24 19:22] VITALS: BP 122/75; PULSE 101; RESP 16; TEMP 97.5; O2SAT 95
[2023-02-24] MEDS: divalproex sod 250mg ER (24-hour) tablet PO SCH ×2 (20:57→21:00)
[2023-02-24] MEDS: methyl salicylate/menthol cream 57gm TP PRN (21:05)
--- NOTE | 2023-02-24 22:36 | NUR ---
Nursing Progress Note: Problem: Currently on LPS awaiting placement. Orig. admit 10/10/22 d/t GD, homeless and unable to formulate a viable plan for jail and food, with homicidal ideations constantly. Pt has history of Schizophrenia, bipolar, anxiety, and is antisocial. Interventions: Provide medication administration & medication management; Maintained a safe & supportive environment; Clear & simple instructions; Direction & encouragement regarding performance of ADLs; monitored behaviors & maintained clear boundaries; Patient physical assessment & 1:1 patient interview; Therapeutic conversation & active listening; Patient education & monitoring. Response: Pt was in bed at change of shift and reports not feeling well. Pt appears to be lethargic and requested "7up and BenGay" Pt declined any snacks/crackers. Pt refused suggestion of zofran, stating "no medicine please." Pt sipped 7up during the evening. Pt applied BenGay to his back and went to sleep. Plan: Crisis interruption and stabilization in a safe and therapeutic environment, pending placement.
[2023-02-25] MEDS: NICOTINE POLACRILEX 2 MG LOZENGE BC PRN ×2 (04:51→19:32)
[2023-02-25 07:00] VITALS: RESP 16; O2SAT 98
[2023-02-25] MEDS: olanzapine 10mg tablet PO SCH (07:25)
[2023-02-25 07:27] VITALS: BP 106/73; PULSE 94; RESP 16; TEMP 98.4; O2SAT 98
[2023-02-25] MEDS: quetiapine 100mg tablet PO SCH ×4 (08:00→19:32)
[2023-02-25] MEDS: docusate sod 100mg capsule PO SCH ×2 (08:00→19:47)
[2023-02-25] MEDS: LORazepam 0.5 MG tablet PO SCH ×3 (08:00→19:32)
[2023-02-25] MEDS: busPIRone 5mg tablet PO SCH ×3 (08:00→16:00)
[2023-02-25] MEDS: multivitamins, therapeutics tablet PO SCH (08:00)
[2023-02-25] MEDS: buprenorphine/naloxone 2-0.5mg sublingual tablet SL SCH ×2 (08:00→17:00)
[2023-02-25] MEDS: methyl salicylate/menthol cream 57gm TP PRN (08:16)
[2023-02-25] MEDS: LORazepam 1 MG tablet PO SCH (12:00)
--- NOTE | 2023-02-25 15:46 | NUR ---
PLACEMENT UPDATE Hailee Mcdonough may be interested, Clemencia Mesa still reviewing, Hailee Chang and Holden Lujan are interested. MARIA LUISA Villeda
--- NOTE | 2023-02-25 17:05 | NUR ---
Nursing Progress Note: Chan Problem: Currently on LPS awaiting placement. Orig. admit 10/10/22 d/t GD, homeless and unable to formulate a viable plan for detention and food, with homicidal ideations constantly. Pt has history of Schizophrenia, bipolar, anxiety, antisocial. Interventions: Medication administration, 1:1 MH assessment, maintained a safe and supportive environment, provided clear and simple instructions, provided encouragement regarding performance of ADLs, monitored behaviors and maintained clear boundaries, maintained Q15 minute safety checks. Response: Pt. received asleep and awoke for a cup of coffee. Pt. approached brief writer reporting he was not taking his medications d/t nausea. Auto Parker discussed Zofran, but he denies needing it. Auto Parker advised pt. of LPS status and Zyprexa, and he was then receptive to take that one medication. Pt. reports I think Im taking too much medication, I was seeing spiders in my bathroom while I was pissing Pt. denies SI, HI, AH, and has no s/sx of irritability or c/o anxiety Pt. reported diarrhea last night; Imodium offered if needed, no sx of dehydration noted. He spent most of the shift in bed, and ate -25% of all meals. Pt. refused afternoon medications and slept for several hours. Fluids encouraged and small snacks offered throughout the shift. Plan: Pt. requires medication adjustments and a safe and supportive environment along with close monitoring for patient and staff safety.
[2023-02-25 19:00] VITALS: BP 135/70; PULSE 70; RESP 18; TEMP 97.3; O2SAT 99
[2023-02-25] MEDS: divalproex sod 250mg ER (24-hour) tablet PO SCH (19:32)
--- NOTE | 2023-02-26 03:46 | NUR ---
Nursing Progress Note: Problem: Currently on LPS awaiting placement. Orig. admit 10/10/22 d/t GD, homeless and unable to formulate a viable plan for long term and food, with homicidal ideations constantly. Pt has history of Schizophrenia, bipolar, anxiety, antisocial. Interventions: Medication administration, 1:1 assessment, maintained a safe and supportive environment, provided clear and simple instructions, provided encouragement regarding performance of ADLs, monitored behaviors and maintained clear boundaries, maintained Q15 minute safety checks. Response: Patient is pleasant and cooperative with care. He attempted to refuse HS medication; claiming he was told he did not have to take them this shift; service writer educated patient on his conservatorship and explained he was required to take his psych medication. He remained pleasant and took his HS medication; Colace was held d/t reports of diarrhea. PRN Nicotine lozenge provided. Patient observed responding to IS but refused SI, HI, A/VH. Patient social with his roommate and participated in HS snack prior to bed; observed sleeping and does not appear to be having difficulty. Plan: Pt. requires medication adjustments and a safe and supportive environment along with close monitoring for patient and staff safety. Addendum: 02/26/23 at 0355 by Sandra Ambriz RN WBC elevated (13.3)
[2023-02-26 07:00] VITALS: RESP 16; O2SAT 94
[2023-02-26 07:20] VITALS: BP 112/60; PULSE 86; RESP 16; TEMP 98; O2SAT 94
[2023-02-26] MEDS: quetiapine 100mg tablet PO SCH ×4 (07:30→20:23)
[2023-02-26] MEDS: busPIRone 5mg tablet PO SCH ×3 (07:30→16:17)
[2023-02-26] MEDS: multivitamins, therapeutics tablet PO SCH (07:31)
[2023-02-26] MEDS: LORazepam 0.5 MG tablet PO SCH ×3 (07:31→20:24)
[2023-02-26] MEDS: olanzapine 10mg tablet PO SCH (07:31)
[2023-02-26] MEDS: buprenorphine/naloxone 2-0.5mg sublingual tablet SL SCH ×2 (07:34→16:23)
[2023-02-26] MEDS: docusate sod 100mg capsule PO SCH ×2 (07:34→20:23)
[2023-02-26] MEDS: LORazepam 1 MG tablet PO SCH (12:35)
--- NOTE | 2023-02-26 16:28 | NUR ---
Nursing Progress Note: Chan Problem: Currently on LPS awaiting placement. Orig. admit 10/10/22 d/t GD, homeless and unable to formulate a viable plan for [facility]-way and food, with homicidal ideations constantly. Pt has history of Schizophrenia, bipolar, anxiety, antisocial. Interventions: Medication administration, 1:1 MH assessment, maintained a safe and supportive environment, provided clear and simple instructions, provided encouragement regarding performance of ADLs, monitored behaviors and maintained clear boundaries, maintained Q15 minute safety checks. Response: Pt. received asleep and awoke for breakfast. Pt. continues to c/o feeling unwell, denies nausea, but reports loose BM. Pt. took his medications without hesitation, but did refuse his Suboxone X2, and DSS was held. Pt. denies SI,HI, AH,VH and speaks in a calm manor with good eye contact. Pt. ate a very small amount of breakfast and returned to bed where he slept until lunch. Pt. was encouraged to increase his water and offered supplemental fluids as well. Pt. ate a small lunch and he returned for a nap, he remains afebrile, and has had no emesis. Pt. presents as fatigued, hair is uncombed, and is wearing unit scrubs. Pt. was seen by a medical provider this shift, no N.O received. Plan: Pt. requires medication adjustments and a safe and supportive environment along with close monitoring for patient and staff safety.
[2023-02-26] MEDS: NICOTINE POLACRILEX 2 MG LOZENGE BC PRN (17:54)
[2023-02-26] MEDS: methyl salicylate/menthol cream 57gm TP PRN (17:54)
[2023-02-26 20:00] VITALS: BP 96/59; PULSE 63; RESP 19; TEMP 98.2; O2SAT 96
[2023-02-26] MEDS: divalproex sod 250mg ER (24-hour) tablet PO SCH (20:24)
--- NOTE | 2023-02-27 00:12 | NUR ---
Nursing Progress Note: Chan Problem: Currently on LPS awaiting placement. Orig. admit 10/10/22 d/t GD, homeless and unable to formulate a viable plan for detention and food, with homicidal ideations constantly. Pt has history of Schizophrenia, bipolar, anxiety, antisocial. Interventions: Medication administration, 1:1 MH assessment, maintained a safe and supportive environment, provided clear and simple instructions, provided encouragement regarding performance of ADLs, monitored behaviors and maintained clear boundaries, maintained Q15 minute safety checks. Response: Pt. received lying down in his room. Pt states he is doing okay.denies nausea and diarrhea. Pt took all HS medications without issue. Observed patient drinking water from his water pitcher and then got a refill. Pt declined snacks and went to bed shortly after med pass. Plan: Pt. requires medication adjustments and a safe and supportive environment along with close monitoring for patient and staff safety.
[2023-02-27 07:00] VITALS: RESP 18; O2SAT 94
[2023-02-27] MEDS: docusate sod 100mg capsule PO SCH ×2 (07:59→20:00)
[2023-02-27] MEDS: olanzapine 10mg tablet PO SCH (07:59)
[2023-02-27] MEDS: quetiapine 100mg tablet PO SCH ×4 (07:59→20:29)
[2023-02-27] MEDS: busPIRone 5mg tablet PO SCH ×3 (07:59→16:50)
[2023-02-27] MEDS: buprenorphine/naloxone 2-0.5mg sublingual tablet SL SCH ×2 (07:59→16:51)
[2023-02-27] MEDS: LORazepam 0.5 MG tablet PO SCH ×3 (07:59→20:29)
[2023-02-27] MEDS: multivitamins, therapeutics tablet PO SCH (07:59)
[2023-02-27 08:00] VITALS: BP 135/61; PULSE 62; RESP 18; TEMP 98.3; O2SAT 94
--- NOTE | 2023-02-27 10:27 | NUR ---
Sent updated notes to [facility] office (02/20-02/26). MARIA LUISA Villeda
[2023-02-27] MEDS: LORazepam 1 MG tablet PO SCH (12:28)
--- NOTE | 2023-02-27 15:29 | NUR ---
Nursing Progress Note: Problem: Pt admitted on 5150 for DTO from our ER. Pt reported that he constantly has thoughts of killing people. He does not know where he can live. He is homeless, does not eat and not wearing shoes. Pt has history of Schizophrenia, bipolar,anxiety,antisocial. Interventions: 1:1 assessment, therapeutic communication, active listening, medication administration/education/monitoring, ensured contract for safety, behavior monitoring and intervention as needed; provided distraction, redirection, positive reinforcement, and Q15 minute safety checks Response: Pt slept for most of the day today. He was cooperative with his medications, and came out of his room for meals and snacks. Pt denied depression, SI/HI/AH/VH. Asked pt why he was sleeping so much. Pt replied, "I feel sick." Clarified with pt that he feels sick to his stomach. Pt did not have any episodes of vomiting. Pt believes it is the Depakote that caused him to feel sick. Pt does not seem to wish to consider that it could be the Suboxone. Pt states that the Suboxone makes him feel better. Plan: Pt is conserved and in need of further medication adjustment and monitoring while awaiting placement.
[2023-02-27] MEDS: NICOTINE POLACRILEX 2 MG LOZENGE BC PRN (18:28)
[2023-02-27 20:00] VITALS: BP 125/79; PULSE 80; RESP 18; TEMP 97.8; O2SAT 99
[2023-02-27] MEDS: divalproex sod 250mg ER (24-hour) tablet PO SCH (20:29)
[2023-02-27] MEDS: methyl salicylate/menthol cream 57gm TP PRN (23:03)
--- NOTE | 2023-02-27 23:19 | NUR ---
Nursing Progress Note: Chan Ramos Problem: Pt admitted on 5150 for DTO from our ER. Pt reported that he constantly has thoughts of killing people. He does not know where he can live. He is homeless, does not eat and not wearing shoes. Pt has history of Schizophrenia, bipolar,anxiety,antisocial. Interventions: 1:1 assessment, therapeutic communication, active listening, medication administration/education/monitoring, ensured contract for safety, behavior monitoring and intervention as needed; provided distraction, redirection, positive reinforcement, and Q15 minute safety checks Response: Pt up walking the hallways and observed in the community room watching TV with another peer while conversing. He denies any nausea/vomiting, no diarrhea and states I am good. He requested PRN nicotine lozenge and sea edouard for his lower back. He was cooperative with his medications and went to bed shortly after med pass. Plan: Pt is conserved and in need of further medication adjustment and monitoring while awaiting placement.
[2023-02-28] MEDS: NICOTINE POLACRILEX 2 MG LOZENGE BC PRN ×2 (05:33→13:16)
[2023-02-28] MEDS: acetaminophen 325mg tablet PO PRN (06:07)
[2023-02-28 07:00] VITALS: RESP 18; O2SAT 97
[2023-02-28] MEDS: docusate sod 100mg capsule PO SCH ×2 (07:35→20:00)
[2023-02-28] MEDS: LORazepam 0.5 MG tablet PO SCH ×3 (07:35→20:21)
[2023-02-28] MEDS: multivitamins, therapeutics tablet PO SCH (07:35)
[2023-02-28] MEDS: quetiapine 100mg tablet PO SCH ×4 (07:35→20:23)
[2023-02-28] MEDS: busPIRone 5mg tablet PO SCH ×3 (07:35→16:21)
[2023-02-28] MEDS: olanzapine 10mg tablet PO SCH (07:35)
[2023-02-28] MEDS: buprenorphine/naloxone 2-0.5mg sublingual tablet SL SCH ×2 (07:35→16:26)
[2023-02-28 08:00] VITALS: BP 115/72; PULSE 80; RESP 16; TEMP 96.9; O2SAT 97
[2023-02-28] MEDS: LORazepam 1 MG tablet PO SCH (12:00)
--- NOTE | 2023-02-28 16:14 | NUR ---
Nursing Progress Note: Chan Problem: Currently on LPS awaiting placement. Orig. admit 10/10/22 d/t GD, homeless and unable to formulate a viable plan for longterm and food, with homicidal ideations constantly. Pt has history of Schizophrenia, bipolar, anxiety, antisocial. Interventions: Medication administration, 1:1 MH assessment, maintained a safe and supportive environment, provided clear and simple instructions, provided encouragement regarding performance of ADLs, monitored behaviors and maintained clear boundaries, maintained Q15 minute safety checks. Response: Pt. received asleep and awoke for breakfast. Pt. denies SI, HI, VH,AH and reports feeling better Pt. requested PRN MOM, but recently had diarrhea, so med was not given, all other medications were taken without hesitation. Pt. is cooperative and has no sx of agitation or anxiety. Pt. napped twice for around 30 min, but spent most of the shift OOB and walking around the unit. Pt. socializes with male cohorts and made a few phone calls. Pt. ate all meals in the community room with cohorts, and his appetite has improved. Pt. has fair hygiene, hair is uncombed, and is wearing street clothes. He was given several PRN nicotine lozenges this shift. Plan: Pt. requires medication adjustments and a safe and supportive environment along with close monitoring for patient and staff safety.
[2023-02-28 19:00] VITALS: RESP 14; O2SAT 97
[2023-02-28 20:00] VITALS: BP 107/55; PULSE 77; RESP 14; TEMP 98; O2SAT 97
[2023-02-28] MEDS: divalproex sod 250mg ER (24-hour) tablet PO SCH ×2 (20:22→20:54)
[2023-02-28] MEDS: methyl salicylate/menthol cream 57gm TP PRN (20:23)
--- NOTE | 2023-03-01 00:38 | NUR ---
Nursing Progress Note: Chan Ramos Problem: Pt admitted on 5150 for DTO from our ER. Pt reported that he constantly has thoughts of killing people. He does not know where he can live. He is homeless, does not eat and not wearing shoes. Pt has history of Schizophrenia, bipolar,anxiety,antisocial. Interventions: 1:1 assessment, therapeutic communication, active listening, medication administration/education/monitoring, ensured contract for safety, behavior monitoring and intervention as needed; provided distraction, redirection, positive reinforcement, and Q15 minute safety checks Response: Received pt. sleeping in bed at the start of shift. Pt. was up for evening snack and sat in the community room for a short period. He denies diarrhea but this contract writer held the colace tonight. Depakote dose was reduced to 500mg starting tonight. Compliant with night medications. He requested PRN Lionel edouard for his "back". Observed and appears to be sleeping. Plan: Pt is conserved and in need of further medication adjustment and monitoring while awaiting placement.
[2023-03-01] MEDS: quetiapine 100mg tablet PO SCH ×4 (07:19→20:21)
[2023-03-01] MEDS: olanzapine 10mg tablet PO SCH (07:20)
[2023-03-01] MEDS: busPIRone 5mg tablet PO SCH ×3 (07:20→16:12)
[2023-03-01] MEDS: docusate sod 100mg capsule PO SCH ×2 (07:21→20:22)
[2023-03-01] MEDS: LORazepam 0.5 MG tablet PO SCH ×3 (07:21→20:22)
[2023-03-01] MEDS: multivitamins, therapeutics tablet PO SCH (07:21)
[2023-03-01] MEDS: buprenorphine/naloxone 2-0.5mg sublingual tablet SL SCH ×2 (07:21→17:24)
[2023-03-01] MEDS: NICOTINE POLACRILEX 2 MG LOZENGE BC PRN ×2 (07:28→19:31)
[2023-03-01 08:00] VITALS: BP 97/48; PULSE 65; RESP 16; TEMP 97.7; O2SAT 97
[2023-03-01] MEDS: LORazepam 1 MG tablet PO SCH (12:32)
--- NOTE | 2023-03-01 17:17 | NUR ---
Nursing Progress Note: Problem: Currently on LPS awaiting placement. Orig. admit 10/10/22 d/t GD, homeless and unable to formulate a viable plan for chcf and food, with homicidal ideations constantly. Pt has history of Schizophrenia, bipolar, anxiety, and is antisocial. Interventions: Provide medication administration & medication management; Maintained a safe & supportive environment; Clear & simple instructions; Direction & encouragement regarding performance of ADLs; monitored behaviors & maintained clear boundaries; Patient physical assessment & 1:1 patient interview; Therapeutic conversation & active listening; Patient education & monitoring. Response: Received patient who was sleeping in bed and was woke up at 0730 and given his 0800 medications to take. Patient took his medications without hesitation and slept until breakfast was served. Patient woke up and requested a Nicotine Lozenge then ate breakfast in the Community Room. Patient ate breakfast and ambulated a few laps in the hallway and assisted the Weaving Professor in changing his bed as all of his sheets were off his bed at the start of this day. Patient woke up for 1100 snack time and again returned to bed to sleep. Patient had no SI/AV/AH. Plan: Crisis interruption and stabilization in a safe and therapeutic environment, pending placement.
[2023-03-01 19:34] VITALS: BP 102/60; PULSE 63; RESP 16; TEMP 97.7; O2SAT 95
[2023-03-01] MEDS: divalproex sod 250mg ER (24-hour) tablet PO SCH (20:22)
[2023-03-01] MEDS: methyl salicylate/menthol cream 57gm TP PRN (20:30)
--- NOTE | 2023-03-02 04:03 | NUR ---
Nursing Progress Note: Problem: Currently on LPS awaiting placement. Orig. admit 10/10/22 d/t GD, homeless and unable to formulate a viable plan for skilled nursing and food, with homicidal ideations constantly. Pt has history of Schizophrenia, bipolar, anxiety, and is antisocial. Interventions: Provide medication administration & medication management; Maintained a safe & supportive environment; Clear & simple instructions; Direction & encouragement regarding performance of ADLs; monitored behaviors & maintained clear boundaries; Patient physical assessment & 1:1 patient interview; Therapeutic conversation & active listening; Patient education & monitoring. Response: Patient is pleasant and cooperative with care; compliant with medication. PRN Nicotine lozenge and [place] provided. Patient denies SI, HI, A/VH; appeared to be guarded early in the conversation (only shaking his head yes and no in responses) then appeared to be expressing an over-elaborated story about his leg (on the side he had a testi removed) being able to swing further than his other leg d/t "no recall" and while doing his stretches a few days back he'd swung his leg too far and strained his lower back. Patient mostly self isolated in his room; only out to make needs known. Patient observed sleeping and does not appear to be having difficulty. Plan: Crisis interruption and stabilization in a safe and therapeutic environment, pending placement.
[2023-03-02] MEDS: multivitamins, therapeutics tablet PO SCH (07:33)
[2023-03-02] MEDS: LORazepam 0.5 MG tablet PO SCH ×3 (07:33→20:09)
[2023-03-02] MEDS: docusate sod 100mg capsule PO SCH ×2 (07:33→20:09)
[2023-03-02] MEDS: olanzapine 10mg tablet PO SCH (07:33)
[2023-03-02] MEDS: buprenorphine/naloxone 2-0.5mg sublingual tablet SL SCH ×2 (07:33→16:55)
[2023-03-02] MEDS: busPIRone 5mg tablet PO SCH ×3 (07:34→16:55)
[2023-03-02] MEDS: quetiapine 100mg tablet PO SCH ×4 (07:38→20:09)
[2023-03-02 08:00] VITALS: BP 114/66; PULSE 73; RESP 16; TEMP 97.7; O2SAT 95
[2023-03-02] MEDS: LORazepam 1 MG tablet PO SCH (13:00)
[2023-03-02] MEDS: NICOTINE POLACRILEX 2 MG LOZENGE BC PRN ×3 (13:04→19:23)
--- NOTE | 2023-03-02 17:12 | NUR ---
Nursing Progress Note: Problem: Currently on LPS awaiting placement. Orig. admit 10/10/22 d/t GD, homeless and unable to formulate a viable plan for detention and food, with homicidal ideations constantly. Pt has history of Schizophrenia, bipolar, anxiety, and is antisocial. Interventions: Provide medication administration & medication management; Maintained a safe & supportive environment; Clear & simple instructions; Direction & encouragement regarding performance of ADLs; monitored behaviors & maintained clear boundaries; Patient physical assessment & 1:1 patient interview; Therapeutic conversation & active listening; Patient education & monitoring. Response: Patient was received at 0630 and was sleeping in bed until 0755 when he was woke up to take his medications as well as get out of bed for breakfast. Patient ambulated to the Community Room and sat with peers. Patient appeared much more alert and awake this morning. Patient stayed awake approximately 1 hour after eating breakfast then returned to bed to sleep. Patients room is unkempt with dirty clothes all of the room, and patient has not requested to shower for the past 3 days. This is atypical for the patient. Patient was asked to clean up his clothing and place the dirty laundry in the basket but this has not yet been accomplished today. Plan: Crisis interruption and stabilization in a safe and therapeutic environment, pending placement.
[2023-03-02 19:09] VITALS: BP 112/67; PULSE 75; RESP 16; TEMP 98.1; O2SAT 97; O2SAT 98
[2023-03-02] MEDS: divalproex sod 250mg ER (24-hour) tablet PO SCH (20:10)
--- NOTE | 2023-03-03 01:55 | NUR ---
Nursing Progress Note: Problem: Currently on LPS awaiting placement. Orig. admit 10/10/22 d/t GD, homeless and unable to formulate a viable plan for correction and food, with homicidal ideations constantly. Pt has history of Schizophrenia, bipolar, anxiety, and is antisocial. Interventions: Provide medication administration & medication management; Maintained a safe & supportive environment; Clear & simple instructions; Direction & encouragement regarding performance of ADLs; monitored behaviors & maintained clear boundaries; Patient physical assessment & 1:1 patient interview; Therapeutic conversation & active listening; Patient education & monitoring. Response: Patient is pleasant and cooperative with care; compliant with medication. PRN Nicotine lozenge provided. Patient denies SI, HI, A/VH; no apparent delusions expressed. Patient is mostly self isolative and in his room but briefly observed walking the unit with headphone on. Patient refused HS snack; observed sleeping and does not appear to be having difficulty. Plan: Crisis interruption and stabilization in a safe and therapeutic environment, pending placement.
[2023-03-03] MEDS: NICOTINE POLACRILEX 2 MG LOZENGE BC PRN ×3 (03:42→21:28)
[2023-03-03] MEDS: busPIRone 5mg tablet PO SCH ×3 (07:25→16:45)
[2023-03-03] MEDS: olanzapine 10mg tablet PO SCH (07:25)
[2023-03-03] MEDS: LORazepam 0.5 MG tablet PO SCH ×3 (07:26→20:32)
[2023-03-03] MEDS: multivitamins, therapeutics tablet PO SCH (07:26)
[2023-03-03] MEDS: buprenorphine/naloxone 2-0.5mg sublingual tablet SL SCH ×2 (07:26→16:44)
[2023-03-03] MEDS: docusate sod 100mg capsule PO SCH ×2 (07:26→20:32)
[2023-03-03] MEDS: quetiapine 100mg tablet PO SCH ×4 (07:39→20:33)
[2023-03-03 08:00] VITALS: BP 123/50; PULSE 59; RESP 18; TEMP 98.1; O2SAT 100
[2023-03-03] MEDS: LORazepam 1 MG tablet PO SCH (12:31)
--- NOTE | 2023-03-03 13:47 | NUR ---
Nursing Progress Note: Problem: Currently on LPS awaiting placement. Orig. admit 10/10/22 d/t GD, homeless and unable to formulate a viable plan for intermediate and food, with homicidal ideations constantly. Pt has history of Schizophrenia, bipolar, anxiety, antisocial. Interventions: Provided 1:1 assessment with therapeutic communication and active listening; provided medication administration/education/monitoring; Maintained a safe & supportive environment; Monitored behaviors & maintained clear boundaries; Monitored Q 15 minute safety checks. Response: Pt up pacing the halls wearing a headset at 0630 am. Pt acknowledged this health technical writer and asked for "a cup of black coffee." Pt ate his breakfast, took medications and cooperated with his morning assessment. He then laid back down appeared asleep until snack at 1100. Pt observed eating lunch, took afternoon medications then went back to bed. Patient was pleasant and cooperative throughout the shift. When asked about discharge pt. stated, "I'm just here waiting for housing, I have a few cases in court, yeah, and the D.A. said, two of the cases he will drop." He requested Nicotine Lozenges as needed. Plan: Continue medications as prescribed while awaiting placement.
[2023-03-03 19:48] VITALS: BP 115/55; PULSE 80; RESP 16; TEMP 97.6; O2SAT 98
[2023-03-03] MEDS: divalproex sod 250mg ER (24-hour) tablet PO SCH (20:33)
--- NOTE | 2023-03-04 02:57 | NUR ---
Nursing Progress Note: Problem: Currently on LPS awaiting placement. Orig. admit 10/10/22 d/t GD, homeless and unable to formulate a viable plan for chcf and food, with homicidal ideations constantly. Pt has history of Schizophrenia, bipolar, anxiety, and is antisocial. Interventions: Provide medication administration & medication management; Maintained a safe & supportive environment; Clear & simple instructions; Direction & encouragement regarding performance of ADLs; monitored behaviors & maintained clear boundaries; Patient physical assessment & 1:1 patient interview; Therapeutic conversation & active listening; Patient education & monitoring. Response: Patient is pleasant and cooperative with care; compliant with medication. PRN Nicotine lozenge provided. Patient denies SI, HI, A/VH; no apparent delusions expressed this shift. Patient is mostly self isolative to his room. Provided HS snack and watched TV in the community room prior to bed; observed sleeping and does not appear to be having difficulty. Plan: Crisis interruption and stabilization in a safe and therapeutic environment, pending placement.
[2023-03-04] MEDS: NICOTINE POLACRILEX 2 MG LOZENGE BC PRN ×2 (04:48→20:21)
[2023-03-04 08:00] VITALS: BP 126/58; PULSE 70; RESP 16; TEMP 97.6; O2SAT 97
[2023-03-04] MEDS: LORazepam 0.5 MG tablet PO SCH ×3 (08:20→20:21)
[2023-03-04] MEDS: quetiapine 100mg tablet PO SCH ×4 (08:20→20:22)
[2023-03-04] MEDS: multivitamins, therapeutics tablet PO SCH (08:20)
[2023-03-04] MEDS: olanzapine 10mg tablet PO SCH (08:20)
[2023-03-04] MEDS: busPIRone 5mg tablet PO SCH ×3 (08:20→16:34)
[2023-03-04] MEDS: docusate sod 100mg capsule PO SCH ×2 (08:20→20:21)
[2023-03-04] MEDS: buprenorphine/naloxone 2-0.5mg sublingual tablet SL SCH ×2 (08:20→16:34)
[2023-03-04] MEDS: LORazepam 1 MG tablet PO SCH (12:43)
--- NOTE | 2023-03-04 14:26 | NUR ---
Nursing Progress Note: Problem: Currently on LPS awaiting placement. Orig. admit 10/10/22 d/t GD, homeless and unable to formulate a viable plan for longterm and food, with homicidal ideations constantly. Pt has history of Schizophrenia, bipolar, anxiety, antisocial. Interventions: Provided 1:1 assessment with therapeutic communication and active listening; provided medication administration/education/monitoring; Encouraged pt to get up and join others for a moving in the community room; Monitored behaviors & maintained clear boundaries; Monitored Q 15 minute safety checks. Response: Pt up at the start of the shift "waiting for coffee." Pt up for all meals and snacks. He is compliant with medications. He stayed in bed most of the shift. Patient calm, polite and pleasant when awake. He requested Nicotine Lozenges as needed. He continues to wait for placement. He is stable with little to none medication adjustments. Plan: Continue medications as prescribed while awaiting placement.
[2023-03-04 19:00] VITALS: RESP 14; O2SAT 97
[2023-03-04 20:00] VITALS: BP 126/58; PULSE 70; RESP 16; TEMP 97.6; O2SAT 97
[2023-03-04] MEDS: divalproex sod 250mg ER (24-hour) tablet PO SCH ×2 (20:21→20:26)
--- NOTE | 2023-03-04 22:43 | NUR ---
Nurse Progress Problem: Pt admitted today on 5150 from our ER at 0900 for DTS. Pt reports being "In a bad place" and that he is hearing a voice that is telling him to hang himself. Marshall reports that "I need help" and that his medications aren't working. Pt has history of Bipolar and Schizophrenia. Interventions: Provided 1:1 assessment with therapeutic communication and active listening; provided medication administration/education/monitoring; Documentation of "strict I&O's. Paged hospitalist to address pt's GFR and other kidney related labs; Provided education regarding hydration and importance of reporting to nurses intake and output. Maintained a safe & supportive environment; Monitored behaviors & maintained clear boundaries; Monitored Q 15 minute safety checks. Response: Patient is laying down in his room following shift change, he was awake. The patient is well oriented. He is quiet, his affect is flat. The patient Denies S/I, H/I, or any hallucinations. Patient exhibit socialization with others in the community room and ate snacks. At medication pass the patient refused his Depakote, Dr. Whitaker was contacted by [facility]. Dr. Whitaker advised that he intended to lower patients Depakote order, he also states it will be done tomorrow. Dr. Whitaker advises not to worry about patients refusal tonight, he will address in am with patient. Patient exhibits some rudeness. Plan: Patients medication continues to be adjusted. Pt requires a safe and therapeutic milieu until medication reaches therapeutic level. Addendum: 03/04/23 at 2306 by Leonard Holt RN Nurse Progress Note
[2023-03-05 07:00] VITALS: RESP 16; O2SAT 95
[2023-03-05 07:11] VITALS: BP 108/66; PULSE 57; RESP 14; TEMP 98; O2SAT 97
[2023-03-05] MEDS: buprenorphine/naloxone 2-0.5mg sublingual tablet SL SCH ×2 (07:41→16:13)
[2023-03-05] MEDS: quetiapine 100mg tablet PO SCH ×4 (07:41→20:17)
[2023-03-05] MEDS: busPIRone 5mg tablet PO SCH ×3 (07:41→16:13)
[2023-03-05] MEDS: olanzapine 10mg tablet PO SCH (07:41)
[2023-03-05] MEDS: docusate sod 100mg capsule PO SCH ×2 (07:42→20:18)
[2023-03-05] MEDS: multivitamins, therapeutics tablet PO SCH (07:42)
[2023-03-05] MEDS: LORazepam 0.5 MG tablet PO SCH ×3 (07:42→20:17)
--- NOTE | 2023-03-05 09:52 | NUR ---
Reassessment: Overall pt continues eating well documented with mostly 100% PO intake of regular meals while receiving double protein BIDBD and snacks meeting estimated nutrient needs. LBM 4/5 per EMR. No nutrition intervention at this time. Will continue to follow. Recommendations: 1. Continue regular diet; double eggs WB, double protein WS 2. Routine bowel care 3. Weekly scaled wts Addendum: 03/05/23 at [address] Amended: Links added.
[2023-03-05] MEDS: LORazepam 1 MG tablet PO SCH (11:17)
[2023-03-05] MEDS: NICOTINE POLACRILEX 2 MG LOZENGE BC PRN ×5 (11:18→21:30)
--- NOTE | 2023-03-05 15:56 | NUR ---
Nursing Progress Note: Chan Problem: Currently on LPS awaiting placement. Orig. admit 10/10/22 d/t GD, homeless and unable to formulate a viable plan for usp and food, with homicidal ideations constantly. Pt has history of Schizophrenia, bipolar, anxiety, antisocial. Interventions: Medication administration, 1:1 MH assessment, maintained a safe and supportive environment, provided clear and simple instructions, provided encouragement regarding performance of ADLs, monitored behaviors and maintained clear boundaries, maintained Q15 minute safety checks. Response: Pt. received asleep and awoke for medications, which he took without hesitation. Pt. denies SI, HI, VH, AH. Pt. is cooperative and has no sx of agitation or anxiety, and attended group. Pt. napped twice for around 30 min, but spent most of the shift OOB and walking around the unit. Pt. socialized with cohorts and listened to headphones. Pt. ate all meals in the community room with cohorts. Pt. has good hygiene, hair is combed, and wears street clothes. He was given several PRN nicotine lozenges this shift. Pt. reports LBM was small, MOM administered with results pending. Plan: Pt. requires medication adjustments and a safe and supportive environment along with close monitoring for patient and staff safety.
[2023-03-05 20:00] VITALS: BP 127/78; PULSE 78; RESP 16; TEMP 98.2; O2SAT 97
[2023-03-05] MEDS: divalproex sod 250mg ER (24-hour) tablet PO SCH (20:18)
--- NOTE | 2023-03-05 23:22 | NUR ---
Nursing Progress Note: Chan Ramos Problem: Currently on LPS awaiting placement. Orig. admit 10/10/22 d/t GD, homeless and unable to formulate a viable plan for fdc and food, with homicidal ideations constantly. Pt has history of Schizophrenia, bipolar, anxiety, antisocial. Interventions: Medication administration, 1:1 MH assessment, maintained a safe and supportive environment, provided clear and simple instructions, provided encouragement regarding performance of ADLs, monitored behaviors and maintained clear boundaries, maintained Q15 minute safety checks. Response: Pt. received lying in bed resting. Pt woke up at snack time and participated in snacks. He denies MH symptoms and states hes doing OK. His speech is appropriate, calm and cooperative with care. No delusional statements made this shift. Pt initially declined Depakote but reminded the pt that it is not safe to completely stop Depakote. Pt paced the unit until bedtime. Plan: Pt. requires medication adjustments and a safe and supportive environment along with close monitoring for patient and staff safety.
[2023-03-06] MEDS: NICOTINE POLACRILEX 2 MG LOZENGE BC PRN ×5 (06:43→19:58)
[2023-03-06 07:00] VITALS: RESP 16; O2SAT 96
[2023-03-06] MEDS: busPIRone 5mg tablet PO SCH ×3 (07:02→15:11)
[2023-03-06] MEDS: LORazepam 0.5 MG tablet PO SCH ×3 (07:03→19:57)
[2023-03-06] MEDS: buprenorphine/naloxone 2-0.5mg sublingual tablet SL SCH ×2 (07:03→16:08)
[2023-03-06] MEDS: docusate sod 100mg capsule PO SCH ×2 (07:03→19:58)
[2023-03-06] MEDS: olanzapine 10mg tablet PO SCH (07:03)
[2023-03-06] MEDS: quetiapine 100mg tablet PO SCH ×4 (07:03→19:58)
[2023-03-06] MEDS: multivitamins, therapeutics tablet PO SCH (07:04)
[2023-03-06 07:20] VITALS: BP 111/43; PULSE 65; RESP 16; TEMP 97.9; O2SAT 96
[2023-03-06] MEDS: LORazepam 1 MG tablet PO SCH (11:55)
--- NOTE | 2023-03-06 12:41 | NUR ---
Sent updated notes to [facility] office (02/27-03/05). MARIA LUISA Villeda
--- NOTE | 2023-03-06 16:29 | NUR ---
Nursing Progress Note: Chan Problem: Currently on LPS awaiting placement. Orig. admit 10/10/22 d/t GD, homeless and unable to formulate a viable plan for long-term and food, with homicidal ideations constantly. Pt has history of Schizophrenia, bipolar, anxiety, antisocial. Interventions: Medication administration, 1:1 MH assessment, maintained a safe and supportive environment, provided clear and simple instructions, provided encouragement regarding performance of ADLs, monitored behaviors and maintained clear boundaries, maintained Q15 minute safety checks. Response: Pt. received asleep and awoke to take his medications, which he took without hesitation. Pt. denies SI, HI, VH, AH. Pt. is receptive to talk with this race and sports book writer, cooperative, and calm. Pt. napped twice today, but spent most of the shift OOB and walking around the unit listening to headphones. Pt. observed socializing with cohorts. Pt. ate all meals in the community room, and ate with others at a table. Pt. has good hygiene, hair is uncombed, and he wears street clothes. He was given several PRN nicotine lozenges this shift. Pt. reports he isnt taking Depakote d/t GI upset, education provided on abruptly stopping this medication. Provider DCd order. Plan: Pt. requires medication adjustments and a safe and supportive environment along with close monitoring for patient and staff safety.
[2023-03-06 19:00] VITALS: BP 133/77; PULSE 78; RESP 16; TEMP 98.3; O2SAT 96
[2023-03-06 19:38] VITALS: RESP 17; O2SAT 97
[2023-03-06] MEDS: magnesium hydroxide 30ml (MOM) UD suspension PO PRN (19:58)
--- NOTE | 2023-03-07 03:34 | NUR ---
Nursing Progress Note Problem: Currently on LPS awaiting placement. Orig. admit 10/10/22 d/t GD, homeless and unable to formulate a viable plan for custodial and food, with homicidal ideations constantly. Pt has history of Schizophrenia, bipolar, anxiety, antisocial. Interventions: Medication administration, 1:1 MH assessment, maintained a safe and supportive environment, provided clear and simple instructions, provided encouragement regarding performance of ADLs, monitored behaviors and maintained clear boundaries, maintained Q15 minute safety checks. Response: Patient noted up walking halls upon turn of shift, requested a pitcher of water refilled. Wearing street clothes and glasses. Appears to be fairly groomed. Is calm/cooperative this shift. Denies any SI, HI, AH, VH. Makes needs known in a calm manner. Cooperative and compliant with assessment and HS meds. PRN Milk of magnesia and Nicotine lozenge administered. Reports had BM today and needs meds to help go some more. Slept well this shift. Will continue to monitor. Plan: Pt. requires medication adjustments and a safe and supportive environment along with close monitoring for patient and staff safety.
[2023-03-07 07:00] VITALS: RESP 16; O2SAT 98
[2023-03-07] MEDS: multivitamins, therapeutics tablet PO SCH (07:04)
[2023-03-07] MEDS: docusate sod 100mg capsule PO SCH ×2 (07:04→20:13)
[2023-03-07] MEDS: quetiapine 100mg tablet PO SCH ×4 (07:05→20:13)
[2023-03-07] MEDS: busPIRone 5mg tablet PO SCH ×3 (07:05→16:37)
[2023-03-07] MEDS: olanzapine 10mg tablet PO SCH (07:05)
[2023-03-07] MEDS: buprenorphine/naloxone 2-0.5mg sublingual tablet SL SCH ×2 (07:05→16:37)
[2023-03-07] MEDS: LORazepam 0.5 MG tablet PO SCH ×3 (07:05→20:14)
[2023-03-07 08:00] VITALS: BP 116/61; PULSE 70; RESP 16; TEMP 98.7; O2SAT 98
[2023-03-07] MEDS: NICOTINE POLACRILEX 2 MG LOZENGE BC PRN ×4 (09:02→18:46)
[2023-03-07] MEDS: LORazepam 1 MG tablet PO SCH (11:56)
--- NOTE | 2023-03-07 16:52 | NUR ---
Nursing Progress Note: Chan Problem: Currently on LPS awaiting placement. Orig. admit 10/10/22 d/t GD, homeless and unable to formulate a viable plan for penitentiary and food, with homicidal ideations constantly. Pt has history of Schizophrenia, bipolar, anxiety, antisocial. Interventions: Medication administration, 1:1 MH assessment, maintained a safe and supportive environment, provided clear and simple instructions, provided encouragement regarding performance of ADLs, monitored behaviors and maintained clear boundaries, maintained Q15 minute safety checks. Response: Pt. received awake requesting coffee, took his medications without hesitation. Pt. denies SI, HI, VH, AH. Pt. is cooperative, has good eye contact, and denies anxiety. Pt. napped twice today, but spent most of the shift walking around the unit listening to headphones, and socializing with cohorts. Pt. ate all meals in the community room, interacting with cohorts. Pt. has good hygiene, hair is uncombed, and wears street clothes. He showered this shift, was given several PRN nicotine lozenges this shift. Plan: Pt. requires medication adjustments and a safe and supportive environment along with close monitoring for patient and staff safety.
[2023-03-07 19:00] VITALS: RESP 16
[2023-03-07 20:00] VITALS: BP 126/88; PULSE 86; RESP 16; TEMP 98.9; O2SAT 97
--- NOTE | 2023-03-08 01:41 | NUR ---
Nursing Progress Note: Chan Problem: Currently on LPS awaiting placement. Orig. admit 10/10/22 d/t GD, homeless and unable to formulate a viable plan for fdc and food, with homicidal ideations constantly. Pt has history of Schizophrenia, bipolar, anxiety, antisocial. Interventions: Medication administration, 1:1 MH assessment, maintained a safe and supportive environment, provided clear and simple instructions, provided encouragement regarding performance of ADLs, monitored behaviors and maintained clear boundaries, maintained Q15 minute safety checks. Response: Patient walking halls at change of shift, listening to headphones. Wearing street clothes and glasses. He is cooperative with all cares this shift, interactions with cohort are appropriate. Denies SI/HI, hallucinations. Able to make needs known to staff. He took HS meds without issue. PRN Nicotine lozenge administered at 1845. He had a snack and requested a water pitcher refill. Went to sleep shortly after HS med pass. Will continue to monitor. Plan: Pt. requires medication adjustments and a safe and supportive environment along with close monitoring for patient and staff safety.
[2023-03-08 07:00] VITALS: RESP 16; O2SAT 97
[2023-03-08] MEDS: NICOTINE POLACRILEX 2 MG LOZENGE BC PRN ×3 (07:22→17:34)
[2023-03-08] MEDS: LORazepam 0.5 MG tablet PO SCH ×3 (07:43→20:12)
[2023-03-08] MEDS: quetiapine 100mg tablet PO SCH ×4 (07:43→20:12)
[2023-03-08] MEDS: olanzapine 10mg tablet PO SCH (07:43)
[2023-03-08] MEDS: docusate sod 100mg capsule PO SCH ×2 (07:43→20:12)
[2023-03-08] MEDS: multivitamins, therapeutics tablet PO SCH (07:43)
[2023-03-08] MEDS: busPIRone 5mg tablet PO SCH ×3 (07:43→16:16)
[2023-03-08] MEDS: buprenorphine/naloxone 2-0.5mg sublingual tablet SL SCH ×2 (07:43→16:21)
[2023-03-08 08:00] VITALS: BP 102/53; PULSE 57; RESP 16; TEMP 98.8; O2SAT 97
[2023-03-08] MEDS: magnesium hydroxide 30ml (MOM) UD suspension PO PRN (08:01)
[2023-03-08] MEDS: LORazepam 1 MG tablet PO SCH (11:06)
--- NOTE | 2023-03-08 14:20 | NUR ---
Nursing Progress Note: Problem: Pt admitted on 5150 for DTO from our ER. Pt reported that he constantly has thoughts of killing people. He does not know where he can live. He is homeless, does not eat and not wearing shoes. Pt has history of Schizophrenia, bipolar,anxiety,antisocial. Interventions: 1:1 assessment, therapeutic communication, active listening, medication administration/education/monitoring, ensured contract for safety, behavior monitoring and intervention as needed; provided distraction, redirection, positive reinforcement, and Q15 minute safety checks Response: Pt was up before breakfast pacing in the hallway with the radio headphones on. Pt requested a nicotine lozenge at 0722. Pt was cooperative with all scheduled medications. Pt requested MOM at 0801 for reports of constipation. Pt did push ups in the community room after breakfast. Pt appears restless at times. Pt denied depression, anxiety, SI/HI/AH/VH. Plan: Pt is conserved and in need of further medication adjustment and monitoring while awaiting placement.
[2023-03-08 19:00] VITALS: RESP 16; O2SAT 96
[2023-03-08 19:31] VITALS: BP 119/55; PULSE 72; RESP 16; TEMP 97.6; O2SAT 96
--- NOTE | 2023-03-09 00:53 | NUR ---
Nursing Progress Note: Problem: Pt admitted on 5150 for DTO from our ER. Pt reported that he constantly has thoughts of killing people. He does not know where he can live. He is homeless, does not eat and not wearing shoes. Pt has history of Schizophrenia, bipolar,anxiety,antisocial. Interventions: 1:1 assessment, therapeutic communication, active listening, medication administration/education/monitoring, ensured contract for safety, behavior monitoring and intervention as needed; provided distraction, redirection, positive reinforcement, and Q15 minute safety checks Response: Pt isolated to room this shift other than dinner and snack. Pt denied depression, anxiety, SI/HI/AH/VH. "I had a good day" Pleasant and cooperative took all meds. Plan: Pt is conserved and in need of further medication adjustment and monitoring while awaiting placement.
[2023-03-09] MEDS: NICOTINE POLACRILEX 2 MG LOZENGE BC PRN ×6 (06:49→23:32)
[2023-03-09 07:00] VITALS: RESP 12; O2SAT 97
[2023-03-09] MEDS: busPIRone 5mg tablet PO SCH ×3 (07:06→15:18)
[2023-03-09] MEDS: docusate sod 100mg capsule PO SCH ×2 (07:06→20:37)
[2023-03-09] MEDS: olanzapine 10mg tablet PO SCH (07:06)
[2023-03-09] MEDS: multivitamins, therapeutics tablet PO SCH (07:06)
[2023-03-09] MEDS: LORazepam 0.5 MG tablet PO SCH ×3 (07:06→20:37)
[2023-03-09] MEDS: quetiapine 100mg tablet PO SCH ×4 (07:07→20:37)
[2023-03-09] MEDS: buprenorphine/naloxone 2-0.5mg sublingual tablet SL SCH ×2 (07:07→16:34)
[2023-03-09 08:00] VITALS: BP 127/64; PULSE 66; RESP 12; TEMP 97.6; O2SAT 97
--- NOTE | 2023-03-09 09:02 | NUR ---
PLACEMENT UPDATE Packet is being reviewed at [facility], [facility], [facility], [place], [place]. He has been declined at [facility] due to recent attempts to asphyxiate. Previously denied at [facility] due to event on 02/16/23. [facility] has requested a re-present for him at [facility] on 03/08/23, awaiting response. MARIA LUISA Villeda
[2023-03-09] MEDS: LORazepam 1 MG tablet PO SCH (12:25)
--- NOTE | 2023-03-09 15:27 | NUR ---
Nursing Progress Note: Problem: Pt admitted on 515 for DTO from our ER. Pt reported that he constantly has thoughts of killing people. He does not know where he can live. He is homeless, does not eat and not wearing shoes. Pt has history of Schizophrenia, bipolar,anxiety,antisocial. Interventions: 1:1 assessment, therapeutic communication, active listening, medication administration/education/monitoring, ensured contract for safety, behavior monitoring and intervention as needed; provided distraction, redirection, limit setting, positive reinforcement, and Q15 minute safety checks Response: Pt was up just after shift change listening to radio headphones and laughing loudly and inappropriately at times. Staff reminded pt that there were people still sleeping but pt continued to burst out with loud, shrill guffaws at intervals. Pt's mood was elevated. Pt was observed dancing energetically in the hallway around 0722. Pt requested a nicotine lozenge. Pt requested a cheeseburger for lunch. Pt reported, "I'm fine." Pt denied depression SI/HI/AH/VH though does appear to be responding to internal stimuli at times. Pt asked for PRN nicotine lozenges periodically throughout the shift. Plan: Pt is conserved and in need of further medication adjustment and monitoring while awaiting placement. Addendum: 03/09/23 at 1607 by Camille Barreto RN ([place]) Pt's Suboxone was increased from 1 tab BID to 2 tabs BID.
[2023-03-09] MEDS: methyl salicylate/menthol cream 57gm TP PRN (18:58)
[2023-03-09 19:00] VITALS: RESP 16; O2SAT 98
[2023-03-09 19:29] VITALS: BP 112/68; PULSE 87; RESP 16; TEMP 98.7; O2SAT 96
[2023-03-09] MEDS: quetiapine 100mg tablet PO PRN (23:32)
--- NOTE | 2023-03-10 00:38 | NUR ---
Nursing Progress Note: Problem: Pt admitted on 5150 for DTO from our ER. Pt reported that he constantly has thoughts of killing people. He does not know where he can live. He is homeless, does not eat and not wearing shoes. Pt has history of Schizophrenia, bipolar,anxiety,antisocial. Interventions: 1:1 assessment, therapeutic communication, active listening, medication administration/education/monitoring, ensured contract for safety, behavior monitoring and intervention as needed; provided distraction, redirection, limit setting, positive reinforcement, and Q15 minute safety checks Response: Start of shift Pt up on unit requesting a Nicotine lozenge. Pt endorses auditory hallucinations. He compares them to hearing the sound from the headphones he's wearing around his neck. Sometimes the voices are loud sometimes very quiet. "It depends on whether I choose to pay attention to them." Pt is pleasant and cooperative. Took all his meds and went to sleep. Plan: Pt is conserved and in need of further medication adjustment and monitoring while awaiting placement.
[2023-03-10 07:00] VITALS: RESP 16; O2SAT 99
[2023-03-10] MEDS: NICOTINE POLACRILEX 2 MG LOZENGE BC PRN ×4 (07:01→19:12)
[2023-03-10] MEDS: olanzapine 10mg tablet PO SCH (07:17)
[2023-03-10] MEDS: busPIRone 5mg tablet PO SCH ×3 (07:17→17:09)
[2023-03-10] MEDS: multivitamins, therapeutics tablet PO SCH (07:17)
[2023-03-10] MEDS: docusate sod 100mg capsule PO SCH ×2 (07:17→20:41)
[2023-03-10] MEDS: LORazepam 0.5 MG tablet PO SCH ×3 (07:17→20:41)
[2023-03-10] MEDS: buprenorphine/naloxone 2-0.5mg sublingual tablet SL SCH ×2 (07:18→17:10)
[2023-03-10] MEDS: quetiapine 100mg tablet PO SCH ×4 (07:18→20:41)
[2023-03-10 08:00] VITALS: BP 122/59; PULSE 78; RESP 16; TEMP 96.8; O2SAT 99
[2023-03-10] MEDS: LORazepam 1 MG tablet PO SCH (11:10)
--- NOTE | 2023-03-10 16:06 | NUR ---
Nursing Progress Note: Problem: Pt admitted on 5150 for DTO from our ER. Pt reported that he constantly has thoughts of killing people. He does not know where he can live. He is homeless, does not eat and not wearing shoes. Pt has history of Schizophrenia, bipolar,anxiety,antisocial. Interventions: 1:1 assessment, therapeutic communication, active listening, medication administration/education/monitoring, ensured contract for safety, behavior monitoring and intervention as needed; provided distraction, redirection, positive reinforcement, and Q15 minute safety checks Response: Pt was up before breakfast requesting a nicotine lozenge. Pt was pleasant and cooperative with his medications. Pt socialized with peers. Pt is somewhat guarded with staff in regards to answering mental health questions. This RN asked pt how the voices were today. Pt replied, "fine." This RN clarified by asking "but you're hearing them right?" Pt did not respond. This RN prompted, "a little?" Pt gave a little nod. Plan: Pt is conserved and in need of further medication adjustment and monitoring while awaiting placement.
[2023-03-10 20:00] VITALS: BP 122/65; PULSE 79; RESP 16; TEMP 98; O2SAT 95
--- NOTE | 2023-03-11 00:24 | NUR ---
Nursing Progress Note: Chan Problem: Pt admitted on 5150 for DTO from our ER. Pt reported that he constantly has thoughts of killing people. He does not know where he can live. He is homeless, does not eat and not wearing shoes. Pt has history of Schizophrenia, bipolar,anxiety,antisocial. Interventions: 1:1 assessment, therapeutic communication, active listening, medication administration/education/monitoring, ensured contract for safety, behavior monitoring and intervention as needed; provided distraction, redirection, positive reinforcement, and Q15 minute safety checks Response: Pt was up pacing the unit, pleasant and cooperative with peers and staff. Pt observed in the community room watching TV visiting with peers. Pt requested nicotine lozenge. Pt participated in snacks and took all HS medications without issue. When asked how his voices were patient states Its cool I am alright. Pt is currently sleeping without issue. Plan: Pt is conserved and in need of further medication adjustment and monitoring while awaiting placement.
[2023-03-11] MEDS: NICOTINE POLACRILEX 2 MG LOZENGE BC PRN ×4 (06:50→19:37)
[2023-03-11 07:00] VITALS: RESP 16; O2SAT 95
[2023-03-11] MEDS: busPIRone 5mg tablet PO SCH ×3 (07:13→16:05)
[2023-03-11] MEDS: buprenorphine/naloxone 2-0.5mg sublingual tablet SL SCH ×2 (07:13→16:06)
[2023-03-11] MEDS: docusate sod 100mg capsule PO SCH ×2 (07:14→20:06)
[2023-03-11] MEDS: olanzapine 10mg tablet PO SCH (07:14)
[2023-03-11] MEDS: multivitamins, therapeutics tablet PO SCH (07:14)
[2023-03-11] MEDS: LORazepam 0.5 MG tablet PO SCH ×3 (07:14→20:06)
[2023-03-11] MEDS: quetiapine 100mg tablet PO SCH ×4 (07:16→20:06)
[2023-03-11 08:00] VITALS: BP 108/54; PULSE 72; RESP 16; TEMP 98.4; O2SAT 95
[2023-03-11] MEDS: LORazepam 1 MG tablet PO SCH (12:09)
--- NOTE | 2023-03-11 16:18 | NUR ---
Sent updated notes to [facility] office at their request (03/06-03/10). MARIA LUISA Villeda
--- NOTE | 2023-03-11 17:46 | NUR ---
Nursing Progress Note: Chan Ramos Problem: Pt admitted on 5150 for DTO from our ER. Pt reported that he constantly has thoughts of killing people. He does not know where he can live. He is homeless, does not eat and not wearing shoes. Pt has history of Schizophrenia, bipolar,anxiety,antisocial. Interventions: 1:1 assessment, therapeutic communication, active listening, medication administration/education/monitoring, ensured contract for safety, behavior monitoring and intervention as needed; provided distraction, redirection, positive reinforcement, and Q15 minute safety checks Response: Patient appeared a little withdrawn this shift. Stayed in his room most of the morning, but did walk the halls in the afternoon. Pleasant and cooperative with peers and staff. Patient requested nicotine lozenge PRN. Patient denies hearing voices, seeing things, and suicidal ideation. When this LN inquired about how he was feeling, he stated good. Very short with conversation. Plan: Pt is conserved and in need of further medication adjustment and monitoring while awaiting placement.
[2023-03-11 20:00] VITALS: BP 138/83; PULSE 71; RESP 16; TEMP 97.4; O2SAT 97
[2023-03-11] MEDS: methyl salicylate/menthol cream 57gm TP PRN (20:06)
--- NOTE | 2023-03-11 23:12 | NUR ---
Nursing Progress Note: Chan Ramos Problem: Pt admitted on 5150 for DTO from our ER. Pt reported that he constantly has thoughts of killing people. He does not know where he can live. He is homeless, does not eat and not wearing shoes. Pt has history of Schizophrenia, bipolar,anxiety,antisocial. Interventions: 1:1 assessment, therapeutic communication, active listening, medication administration/education/monitoring, ensured contract for safety, behavior monitoring and intervention as needed; provided distraction, redirection, positive reinforcement, and Q15 minute safety checks Response: Patient up pacing the unit, friendly and pleasant with peers and staff. Pt came to this RN requesting PRN nicotine lozenge. Pt states he had a good day today, mostly slept. Asked about AH and the pt stated I am alright. Compliant with medications. Pt observed in the community room watching TV with peers until snack time. He paced the unit until bedtime. Plan: Pt is conserved and in need of further medication adjustment and monitoring while awaiting placement.
[2023-03-12] MEDS: quetiapine 100mg tablet PO PRN (01:20)
[2023-03-12 07:23] VITALS: BP 100/69; PULSE 83; RESP 18; TEMP 98.6; O2SAT 92
[2023-03-12] MEDS: docusate sod 100mg capsule PO SCH ×2 (08:26→20:12)
[2023-03-12] MEDS: quetiapine 100mg tablet PO SCH ×4 (08:26→20:13)
[2023-03-12] MEDS: buprenorphine/naloxone 2-0.5mg sublingual tablet SL SCH ×2 (08:27→16:57)
[2023-03-12] MEDS: multivitamins, therapeutics tablet PO SCH (08:27)
[2023-03-12] MEDS: LORazepam 0.5 MG tablet PO SCH ×3 (08:27→20:12)
[2023-03-12] MEDS: olanzapine 10mg tablet PO SCH (08:27)
[2023-03-12] MEDS: NICOTINE POLACRILEX 2 MG LOZENGE BC PRN ×4 (08:52→20:14)
[2023-03-12] MEDS: busPIRone 5mg tablet PO SCH ×3 (09:20→16:58)
[2023-03-12] MEDS: magnesium hydroxide 30ml (MOM) UD suspension PO PRN (11:41)
[2023-03-12] MEDS: LORazepam 1 MG tablet PO SCH (11:41)
--- NOTE | 2023-03-12 11:50 | NUR ---
Reassessment: Pt continues eating well documented with mostly 100% PO intake of regular meals while receiving double protein BIDBD and snacks meeting estimated nutrient needs. LBM 03/11 per EMR. Pt receiving routine and PRN bowel care. No nutrition intervention at this time. Will continue to follow. Recommendations: 1. Continue regular diet; double eggs WB, double protein WS 2. Routine bowel care 3. Weekly scaled wts Addendum: 03/12/23 at [address] RD Amended: Links added.
--- NOTE | 2023-03-12 14:54 | NUR ---
PLACEMENT UPDATE Packet still being reviewed at [facility] (re-present, short staffed they will look at his new notes today), [facility] (at capacity), [facility] (concerned about recent DTS, but will review new notes), [facility], and [facility]. Client has been declined at [facility]. MARIA LUISA Villeda
--- NOTE | 2023-03-12 15:27 | NUR ---
Nursing Progress Note: Chan Ramos Problem: Pt admitted on 5150 for DTO from our ER. Pt reported that he constantly has thoughts of killing people. He does not know where he can live. He is homeless, does not eat and not wearing shoes. Pt has history of Schizophrenia, bipolar,anxiety,antisocial. Interventions: 1:1 assessment, therapeutic communication, active listening, medication administration/education/monitoring, ensured contract for safety, behavior monitoring and intervention as needed; provided distraction, redirection, positive reinforcement, and Q15 minute safety checks Response: Patient up pacing the unit, friendly and pleasant with peers and staff. Pt cooperative with care. Pt denies any mental health symptoms today. Pt gets up out of bed for meals and snacks today. Pt awaiting placement. Plan: Pt is conserved and in need of further medication adjustment and monitoring while awaiting placement.
[2023-03-12 19:00] VITALS: BP 115/74; PULSE 75; RESP 18; TEMP 97.3; O2SAT 96
[2023-03-13] MEDS: NICOTINE POLACRILEX 2 MG LOZENGE BC PRN ×4 (05:42→15:48)
--- NOTE | 2023-03-13 05:44 | NUR ---
Nursing Progress Note: Chan Ramos Problem: Pt admitted on 5150 for DTO from our ER. Pt reported that he constantly has thoughts of killing people. He does not know where he can live. He is homeless, does not eat and not wearing shoes. Pt has history of Schizophrenia, bipolar, anxiety, antisocial. Interventions: 1:1 assessment, therapeutic communication, active listening, provided clear and simple instructions, medication administration/education/monitoring, behavior monitoring and intervention as needed; provided distraction, direction, positive reinforcement, reality orientation, maintained a safe and supportive environment, and Q15 minute safety checks. Response: Patient is sleeping in assigned bed listening to the headphones. Pt. later got up asking for a nicotine lozenge. Pt. took his HS medications without prompting and plus the lozenge prn. Pt. is isolative to self, distancing himself from other peers. No outbursts or RIS. Pt. was calm and cooperative. Pt. denies SI/HI/AH/VH. Pt. uses headphones as a distraction from his voices. Monitor for safety q15 minutes. Plan: Pt is conserved and in need of further medication adjustment and monitoring while awaiting placement.
[2023-03-13 08:00] VITALS: BP 111/52; PULSE 55; RESP 12; TEMP 98; O2SAT 98
[2023-03-13] MEDS: busPIRone 5mg tablet PO SCH ×3 (08:11→16:39)
[2023-03-13] MEDS: quetiapine 100mg tablet PO SCH ×4 (08:11→20:22)
[2023-03-13] MEDS: buprenorphine/naloxone 2-0.5mg sublingual tablet SL SCH ×2 (08:12→16:40)
[2023-03-13] MEDS: LORazepam 0.5 MG tablet PO SCH ×3 (08:12→20:22)
[2023-03-13] MEDS: olanzapine 10mg tablet PO SCH (08:12)
[2023-03-13] MEDS: docusate sod 100mg capsule PO SCH ×2 (08:13→20:22)
[2023-03-13] MEDS: multivitamins, therapeutics tablet PO SCH (08:13)
[2023-03-13] MEDS: magnesium hydroxide 30ml (MOM) UD suspension PO PRN (09:31)
--- NOTE | 2023-03-13 12:30 | NUR ---
Nursing Progress Note: Chan Rachel Problem: Pt admitted on 5150 for DTO from our ER. Pt reported that he constantly has thoughts of killing people. He does not know where he can live. He is homeless, does not eat and not wearing shoes. Pt has history of Schizophrenia, bipolar, anxiety, antisocial. Interventions: 1:1 assessment, therapeutic communication, active listening, provided clear and simple instructions, medication administration/education/monitoring, behavior monitoring and intervention as needed; provided distraction, direction, positive reinforcement, reality orientation, maintained a safe and supportive environment, and Q15 minute safety checks. Response: Patient was found sleeping at beginning of shift. Patient continued to sleep until getting up for breakfast. Patient took all morning medications without issue except for licking med cup in order to get every drop of his Suboxone. Patient requested prn nicotine lozenge and went to bed. Patient spent majority of time in his room sleeping and isolating. Plan: Pt is conserved and in need of further medication adjustment and monitoring while awaiting placement.
[2023-03-13] MEDS: LORazepam 1 MG tablet PO SCH (13:11)
[2023-03-13 19:00] VITALS: RESP 15; O2SAT 96
[2023-03-13 20:00] VITALS: BP 95/59; PULSE 66; RESP 15; TEMP 97.3; O2SAT 96
--- NOTE | 2023-03-14 05:45 | NUR ---
Nursing Progress Note: Chan Ramos Problem: Pt admitted on 5150 for DTO from our ER. Pt reported that he constantly has thoughts of killing people. He does not know where he can live. He is homeless, does not eat and not wearing shoes. Pt has history of Schizophrenia, bipolar, anxiety, antisocial. Interventions: 1:1 assessment, therapeutic communication, active listening, provided clear and simple instructions, medication administration/education/monitoring, behavior monitoring and intervention as needed; provided distraction, direction, positive reinforcement, reality orientation, maintained a safe and supportive environment, and Q15 minute safety checks. Response: Patient is sleeping in assigned bed listening to the headphones. Pt. woke easily for vital signs. Pt. took his HS medications without prompting. Pt. denies side effects. Attempted to educate pt. on medication adherence but he was disinterested. Encourage pt. to attend groups so to interact with peers. Pt. appears withdrawn and isolates in his room. Pt. was calm and cooperative. Pt. denies SI/HI/AH/VH. Pt. uses headphones as a distraction from his voices. Monitor for safety q15 minutes. Plan: Pt is conserved and in need of further medication adjustment and monitoring while awaiting placement.
[2023-03-14] MEDS: NICOTINE POLACRILEX 2 MG LOZENGE BC PRN ×3 (07:12→16:30)
[2023-03-14 08:00] VITALS: BP 142/68; PULSE 75; RESP 16; TEMP 97.3; O2SAT 95
[2023-03-14] MEDS: olanzapine 10mg tablet PO SCH (08:19)
[2023-03-14] MEDS: busPIRone 5mg tablet PO SCH ×3 (08:19→16:56)
[2023-03-14] MEDS: docusate sod 100mg capsule PO SCH ×2 (08:19→20:14)
[2023-03-14] MEDS: multivitamins, therapeutics tablet PO SCH (08:20)
[2023-03-14] MEDS: LORazepam 0.5 MG tablet PO SCH ×3 (08:20→20:14)
[2023-03-14] MEDS: quetiapine 100mg tablet PO SCH ×4 (08:21→20:13)
[2023-03-14] MEDS: buprenorphine/naloxone 2-0.5mg sublingual tablet SL SCH ×2 (08:21→16:56)
[2023-03-14] MEDS: LORazepam 1 MG tablet PO SCH (11:31)
--- NOTE | 2023-03-14 16:43 | NUR ---
Nursing Progress Note: Chan Rachel Problem: Pt admitted on 5150 for DTO from our ER. Pt reported that he constantly has thoughts of killing people. He does not know where he can live. He is homeless, does not eat and not wearing shoes. Pt has history of Schizophrenia, bipolar, anxiety, antisocial. Interventions: 1:1 assessment, therapeutic communication, active listening, provided clear and simple instructions, medication administration/education/monitoring, behavior monitoring and intervention as needed; provided distraction, direction, positive reinforcement, reality orientation, maintained a safe and supportive environment, and Q15 minute safety checks. Response: Patient came right up to nurse asking for prn nicotine lozenge at beginning of shift. Patient was later observed walking around unit listening to headphones. Patient took all medication without difficulty. Patient was visited by his stepfather today and that made him happy. Patient started talking about time in halfway and was easily redirected. Patient gets very excited hen brought Suboxone. Patient was polite and cooperative. Patient spent a lot of time isolating in room listening to headphones. Plan: Pt is conserved and in need of further medication adjustment and monitoring while awaiting placement.
[2023-03-14 19:00] VITALS: RESP 17; O2SAT 95
[2023-03-14 20:21] VITALS: BP 102/65; PULSE 65; RESP 17; TEMP 96.8; O2SAT 95
--- NOTE | 2023-03-15 03:58 | NUR ---
Nursing Progress Note: Chan C Problem: Pt admitted on 5150 for DTO from our ER. Pt reported that he constantly has thoughts of killing people. He does not know where he can live. He is homeless, does not eat and not wearing shoes. Pt has history of Schizophrenia, bipolar, anxiety, antisocial. Interventions: 1:1 assessment, therapeutic communication, active listening, provided clear and simple instructions, medication administration/education/monitoring, behavior monitoring and intervention as needed; provided distraction, direction, positive reinforcement, reality orientation, maintained a safe and supportive environment, and Q15 minute safety checks. Response: Patient was found sitting in his room self isolating and listening to music. Patient came out for snack and to yell at his roommate he was going into the wrong room. Patient was later found walking lion by himself and took his night medication without difficulty. Patient participated in snack and returned to his room. Plan: Pt is conserved and in need of further medication adjustment and monitoring while awaiting placement.
[2023-03-15] MEDS: NICOTINE POLACRILEX 2 MG LOZENGE BC PRN ×4 (06:30→19:21)
[2023-03-15 07:00] VITALS: RESP 18; O2SAT 96
[2023-03-15] MEDS: multivitamins, therapeutics tablet PO SCH (07:50)
[2023-03-15] MEDS: olanzapine 10mg tablet PO SCH (07:50)
[2023-03-15] MEDS: busPIRone 5mg tablet PO SCH ×3 (07:50→16:13)
[2023-03-15] MEDS: quetiapine 100mg tablet PO SCH ×4 (07:50→20:26)
[2023-03-15] MEDS: LORazepam 0.5 MG tablet PO SCH ×3 (07:50→20:26)
[2023-03-15] MEDS: buprenorphine/naloxone 2-0.5mg sublingual tablet SL SCH ×2 (07:50→17:19)
[2023-03-15] MEDS: docusate sod 100mg capsule PO SCH ×2 (07:51→20:26)
[2023-03-15 08:00] VITALS: BP 124/70; PULSE 78; RESP 18; TEMP 97.4; O2SAT 96
[2023-03-15] MEDS: LORazepam 1 MG tablet PO SCH (12:13)
--- NOTE | 2023-03-15 18:02 | NUR ---
Nursing Progress Note: Chan Problem: Pt admitted on 5150 for DTO from our ER. Pt reported that he constantly has thoughts of killing people. He does not know where he can live. He is homeless, does not eat and not wearing shoes. Pt has history of Schizophrenia, bipolar, anxiety, antisocial. Interventions: Provided 1:1 assessment, therapeutic communication, active listening, provided clear and simple instructions, medication administration/education/monitoring, behavior monitoring and intervention as needed; provided direction, positive reinforcement, reality orientation, maintained a safe and supportive environment, and Q15 minute safety checks. Response: Patient received walking around the unit at shift change. He approached staff asking for a PRN Nicotine lozenge which was provided to him. Pt is pleasant, calm, and cooperative with care. He was receptive to scheduled medication and 1:1 assessment. Pt joined for breakfast in the group room, noted to be social with peers. He denies SI/HI, AH or VH. Does not appear to be responding to IS. 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 Pt endorsed desire to go back to school to get his GED, discussing different state grants that he qualifies for. He appears hopeful and optimistic of the future. Pt was observed to be active on the unit the majority of the shift. He was observed sitting in the group room socializing with peers. Pt joined for all meal and snack times today. Plan: Pt is conserved and in need of further medication adjustment and monitoring while awaiting placement.
[2023-03-15 19:00] VITALS: RESP 16; O2SAT 98
[2023-03-15 19:41] VITALS: BP 119/60; PULSE 70; RESP 16; TEMP 97.9; O2SAT 96
[2023-03-15] MEDS: clotrimazole topical cream 15gm tube TP SCH (20:26)
--- NOTE | 2023-03-16 01:07 | NUR ---
Nursing Progress Note: Problem: Pt admitted on 5150 for DTO from our ER. Pt reported that he constantly has thoughts of killing people. He does not know where he can live. He is homeless, does not eat and not wearing shoes. Pt has history of Schizophrenia, bipolar,anxiety,antisocial. Interventions: 1:1 assessment, therapeutic communication, active listening, medication administration/education/monitoring, ensured contract for safety, behavior monitoring and intervention as needed; provided distraction, redirection, limit setting, positive reinforcement, and Q15 minute safety checks Response: Start of shift Pt up on unit. He interacts pleasantly with other pts and staff. Pt endorses auditory hallucinations but they are not bothering him "I had a really good day" Pt is pleasant and cooperative. Took all his meds and went to sleep. Plan: Pt is conserved and in need of further medication adjustment and monitoring while awaiting placement.
[2023-03-16 07:00] VITALS: RESP 18; O2SAT 96
[2023-03-16] MEDS: buprenorphine/naloxone 2-0.5mg sublingual tablet SL SCH ×2 (07:07→16:56)
[2023-03-16] MEDS: NICOTINE POLACRILEX 2 MG LOZENGE BC PRN ×6 (07:07→20:36)
[2023-03-16] MEDS: quetiapine 100mg tablet PO SCH ×4 (07:08→20:31)
[2023-03-16] MEDS: olanzapine 10mg tablet PO SCH (07:08)
[2023-03-16] MEDS: multivitamins, therapeutics tablet PO SCH (07:09)
[2023-03-16] MEDS: docusate sod 100mg capsule PO SCH ×2 (07:09→20:31)
[2023-03-16] MEDS: LORazepam 0.5 MG tablet PO SCH ×3 (07:09→20:31)
[2023-03-16] MEDS: busPIRone 5mg tablet PO SCH ×3 (07:09→16:57)
[2023-03-16 08:00] VITALS: BP 134/71; PULSE 66; RESP 18; TEMP 97.9; O2SAT 96
[2023-03-16] MEDS: clotrimazole topical cream 15gm tube TP SCH ×2 (08:10→20:34)
[2023-03-16] MEDS: LORazepam 1 MG tablet PO SCH (13:49)
--- NOTE | 2023-03-16 15:04 | NUR ---
Nursing Progress Note: Chan Problem: Pt admitted on 5150 for DTO from our ER. Pt reported that he constantly has thoughts of killing people. He does not know where he can live. He is homeless, does not eat and not wearing shoes. Pt has history of Schizophrenia, bipolar, anxiety, antisocial. Interventions: Provided 1:1 assessment, therapeutic communication, active listening, provided clear and simple instructions, medication administration/education/monitoring, behavior monitoring and intervention as needed; provided direction, positive reinforcement, reality orientation, maintained a safe and supportive environment, and Q15 minute safety checks. Response: Patient was awake at change of shift and walking around the unit. Patient is pleasant and socializes with peers. Patient listening to music on headphones in the afternoon. Patient denies suicidal/homicidal ideation. Patient takes his medications and has asked for a nicotine lozenge twice today. Patient sits in the community room and chatting with peers. Patient does not appear to be responding to internal stimuli. Patient is pending placement and states he wants to be in a board and care for more freedom. Plan: Pt is conserved and in need of further medication adjustment and monitoring while awaiting placement.
[2023-03-16 19:00] VITALS: RESP 12; O2SAT 97
[2023-03-16 20:00] VITALS: BP 133/73; PULSE 75; RESP 12; TEMP 97.8; O2SAT 97
--- NOTE | 2023-03-17 02:56 | NUR ---
Nursing Progress Note: Problem: Pt admitted on 5150 for DTO from our ER. Pt reported that he constantly has thoughts of killing people. He does not know where he can live. He is homeless, does not eat and not wearing shoes. Pt has history of Schizophrenia, bipolar,anxiety,antisocial. Interventions: 1:1 assessment, therapeutic communication, active listening, medication administration/education/monitoring, ensured contract for safety, behavior monitoring and intervention as needed; provided distraction, redirection, limit setting, positive reinforcement, and Q15 minute safety checks Response: Start of shift Pt up on unit. He jokes with pts and staff. Pt endorses auditory hallucinations but they are not bothering him "I had a good day" Pt is pleasant and cooperative. Took all his meds and went to sleep. Plan: Pt is conserved and in need of further medication adjustment and monitoring while awaiting placement.
[2023-03-17 07:00] VITALS: RESP 14; O2SAT 95
[2023-03-17 08:00] VITALS: BP 106/62; PULSE 64; RESP 14; TEMP 98.2; O2SAT 95
[2023-03-17] MEDS: quetiapine 100mg tablet PO SCH ×4 (08:25→20:08)
[2023-03-17] MEDS: olanzapine 10mg tablet PO SCH (08:26)
[2023-03-17] MEDS: docusate sod 100mg capsule PO SCH ×2 (08:26→20:08)
[2023-03-17] MEDS: multivitamins, therapeutics tablet PO SCH (08:26)
[2023-03-17] MEDS: clotrimazole topical cream 15gm tube TP SCH ×2 (08:26→20:08)
[2023-03-17] MEDS: busPIRone 5mg tablet PO SCH ×3 (08:26→16:43)
[2023-03-17] MEDS: LORazepam 0.5 MG tablet PO SCH ×3 (08:26→20:08)
[2023-03-17] MEDS: buprenorphine/naloxone 2-0.5mg sublingual tablet SL SCH ×2 (08:26→16:43)
[2023-03-17] MEDS: LORazepam 1 MG tablet PO SCH (12:59)
[2023-03-17] MEDS: NICOTINE POLACRILEX 2 MG LOZENGE BC PRN ×2 (13:00→19:37)
--- NOTE | 2023-03-17 17:53 | NUR ---
Nursing Progress Note: Chan Problem: Pt admitted on 5150 for DTO from our ER. Pt reported that he constantly has thoughts of killing people. He does not know where he can live. He is homeless, does not eat and not wearing shoes. Pt has history of Schizophrenia, bipolar, anxiety, antisocial. Interventions: Provided 1:1 assessment, therapeutic communication, active listening, provided clear and simple instructions, medication administration/education/monitoring, behavior monitoring and intervention as needed; provided direction, positive reinforcement, reality orientation, maintained a safe and supportive environment, and Q15 minute safety checks. Response: Received pt. sleeping in bed at the beginning of the shift and in no distress. Pt woke for vitals and was cooperative. Pt returned to sleep and woke for breakfast. Pt ate meals well and engaged with assessments well. He took AM and other meds throughout the day w/o issue and used one nicotine lozenge this shift. He did not appear to be responding to internal stimuli and was calm throughout the day. Pt was social with others in community room. Patient denies suicidal/homicidal ideation. Plan: Pt is conserved and in need of further medication adjustment and monitoring while awaiting placement.
[2023-03-17 19:00] VITALS: RESP 16; O2SAT 97
[2023-03-17 20:00] VITALS: BP 113/59; PULSE 78; RESP 16; TEMP 97.7; O2SAT 97
--- NOTE | 2023-03-18 03:59 | NUR ---
Nursing Progress Note: Problem: Pt admitted on 5150 for DTO from our ER. Pt reported that he constantly has thoughts of killing people. He does not know where he can live. He is homeless, does not eat and not wearing shoes. Pt has history of Schizophrenia, bipolar, anxiety, antisocial. Interventions: 1:1 assessment, therapeutic communication, active listening, medication administration/education/monitoring, ensured contract for safety, behavior monitoring and intervention as needed; provided distraction, redirection, limit setting, positive reinforcement, and Q15 minute safety checks Response: Received Pt awake and in Recreation room socializing with others. Pt cooperative with vitals and had snack. He endorses AHs but did not appear to be responding to internal stimuli. He was polite and respectful with staff and others. Pt took HS meds w/o issue and went to bed where he has remained until now. Plan: Pt is conserved and in need of further medication adjustment and monitoring while awaiting placement.
[2023-03-18 07:00] VITALS: RESP 16; O2SAT 97
[2023-03-18] MEDS: multivitamins, therapeutics tablet PO SCH (07:15)
[2023-03-18] MEDS: olanzapine 10mg tablet PO SCH (07:15)
[2023-03-18] MEDS: busPIRone 5mg tablet PO SCH ×3 (07:15→16:36)
[2023-03-18] MEDS: quetiapine 100mg tablet PO SCH ×4 (07:15→20:02)
[2023-03-18] MEDS: docusate sod 100mg capsule PO SCH ×2 (07:15→20:02)
[2023-03-18] MEDS: LORazepam 0.5 MG tablet PO SCH ×3 (07:15→20:02)
[2023-03-18] MEDS: clotrimazole topical cream 15gm tube TP SCH ×2 (07:16→20:04)
[2023-03-18] MEDS: NICOTINE POLACRILEX 2 MG LOZENGE BC PRN ×3 (07:16→17:44)
[2023-03-18] MEDS: buprenorphine/naloxone 2-0.5mg sublingual tablet SL SCH ×2 (07:16→16:37)
[2023-03-18 08:00] VITALS: BP 125/58; PULSE 72; RESP 16; TEMP 97.7; O2SAT 97
[2023-03-18] MEDS: LORazepam 1 MG tablet PO SCH (11:24)
--- NOTE | 2023-03-18 14:27 | NUR ---
Nursing Progress Note: Problem: Pt admitted on 5150 for DTO from our ER. Pt reported that he constantly has thoughts of killing people. He does not know where he can live. He is homeless, does not eat and not wearing shoes. Pt has history of Schizophrenia, bipolar,anxiety,antisocial. Interventions: 1:1 assessment, therapeutic communication, active listening, medication administration/education/monitoring, ensured contract for safety, behavior monitoring and intervention as needed; provided distraction, redirection, limit setting, positive reinforcement, and Q15 minute safety checks Response: Pt was up before breakfast asking for a nicotine lozenge. Pt was cooperative with his medications. Pt denied depression, SI/HI/AH/VH. Pt socialized with select peers. Pt is pleasant and polite with staff. Pt did not appear to be responding to internal stimuli. Plan: Pt is conserved and in need of further medication adjustment and monitoring while awaiting placement.
[2023-03-18 19:00] VITALS: BP 109/51; PULSE 73; RESP 14; TEMP 98.4; O2SAT 97
--- NOTE | 2023-03-19 04:40 | NUR ---
Nursing Progress Note: Problem: Pt admitted on 5150 for DTO from our ER. Pt reported that he constantly has thoughts of killing people. He does not know where he can live. He is homeless, does not eat and not wearing shoes. Pt has history of Schizophrenia, bipolar,anxiety,antisocial. Interventions: 1:1 assessment, therapeutic communication, active listening, medication administration/education/monitoring, ensured contract for safety, behavior monitoring and intervention as needed; provided distraction, redirection, limit setting, positive reinforcement, and Q15 minute safety checks Response: Patient was received sitting in rec room socializing with other patients at change of shift. Patient was later found walking around unit listening to headphones and going back and forth between bedroom and rec room. Patient was polite and cooperative. Patient was made no delusional statements. Patient took all night medication without difficulty and requested no prns. Plan: Pt is conserved and in need of further medication adjustment and monitoring while awaiting placement.
--- NOTE | 2023-03-19 05:53 | NUR ---
PARTY PLAN DEALER documentation I have reviewed and agree with all interventions, assessments preformed and documentation by Rigo Jones LVN.
[2023-03-19] MEDS: NICOTINE POLACRILEX 2 MG LOZENGE BC PRN ×4 (06:48→20:27)
[2023-03-19 07:00] VITALS: RESP 16; O2SAT 95
[2023-03-19] MEDS: busPIRone 5mg tablet PO SCH ×3 (07:30→16:53)
[2023-03-19] MEDS: multivitamins, therapeutics tablet PO SCH (07:30)
[2023-03-19] MEDS: olanzapine 10mg tablet PO SCH (07:30)
[2023-03-19] MEDS: LORazepam 0.5 MG tablet PO SCH ×3 (07:30→20:26)
[2023-03-19] MEDS: docusate sod 100mg capsule PO SCH ×2 (07:30→20:26)
[2023-03-19] MEDS: buprenorphine/naloxone 2-0.5mg sublingual tablet SL SCH ×2 (07:31→16:53)
[2023-03-19] MEDS: quetiapine 100mg tablet PO SCH ×4 (07:31→20:27)
[2023-03-19] MEDS: clotrimazole topical cream 15gm tube TP SCH ×2 (07:58→20:00)
[2023-03-19 08:00] VITALS: BP 100/61; PULSE 72; RESP 16; TEMP 97.8; O2SAT 95
[2023-03-19] MEDS: methyl salicylate/menthol cream 57gm TP PRN (08:16)
[2023-03-19] MEDS: LORazepam 1 MG tablet PO SCH (11:37)
--- NOTE | 2023-03-19 14:02 | NUR ---
Group Therapy Pt attended group today.We then did an Art Expression activity where they had to identify two opposing emotions and draw each emotion in its [place] to show its opposing emotion. Each pt. then had their emotions dialogue with each other and write what they said to each other out. Each pt. shared their artwork and written portion with the group. Pt engaged well with the information and with his peers. He shared his picture at the end and explained what he was trying to express well. He understood the concepts. His demeanor was calm, compliant and pleasant to work with. His mood was good with a flat affect. He was alert and oriented X 4. Brandie Rodriguez LCSW
--- NOTE | 2023-03-19 16:26 | NUR ---
Nursing Progress Note: Problem: Pt admitted on 5150 for DTO from our ER. Pt reported that he constantly has thoughts of killing people. He does not know where he can live. He is homeless, does not eat and not wearing shoes. Pt has history of Schizophrenia, bipolar,anxiety,antisocial. Interventions: 1:1 assessment, therapeutic conversation, active listening, medication administration/education/monitoring, ensured contract for safety, behavior monitoring and intervention as needed; provided distraction, redirection, positive reinforcement, and Q15 minute safety checks Response: Pt was up before breakfast asking for a nicotine lozenge. Pt was pleasant and cooperative with his routine medications. When asked how he was doing, pt reports, "I'm all right." Pt went on to say, "about to do some more pull ups. I quit working out for awhile so I could only do 4 but I'm back up to 6 now." Pt exercises and listens to the radio headphones. Pt socializes with peers. Pt attended group today. Pt did not appear to be responding to internal stimuli. Pt requested some Lionel Wells for his elbow. Plan: Pt is conserved and in need of further medication adjustment and monitoring while awaiting placement.
[2023-03-19 19:00] VITALS: RESP 16; O2SAT 97
[2023-03-19 19:50] VITALS: BP 122/65; PULSE 78; RESP 16; TEMP 98.3; O2SAT 97
[2023-03-19] MEDS: quetiapine 100mg tablet PO PRN (22:19)
--- NOTE | 2023-03-20 00:55 | NUR ---
Nursing Progress Note: Problem: Pt admitted on 515 for DTO from our ER. Pt reported that he constantly has thoughts of killing people. He does not know where he can live. He is homeless, does not eat and not wearing shoes. Pt has history of Schizophrenia, bipolar,anxiety,antisocial. Interventions: 1:1 assessment, therapeutic communication, active listening, medication administration/education/monitoring, ensured contract for safety, behavior monitoring and intervention as needed; provided distraction, redirection, limit setting, positive reinforcement, and Q15 minute safety checks Response: Received pt. wearing headphones pacing the unit and socializing with peers. He sat in the community room playing the [employer] with peers and socializing. Pt. is pleasant, polite and cooperative. Participated in evening snack. Compliant with medications. PRN nicotine lozenge provided. Denies SI/HI,AH/VH. 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 Pt. remained in community room until closing. At 2215 pt. was pacing and asked "Do I have to go to bed". Pt. walked back to his room and a few mins later he asked to have PRN Seroquel for sleep. PRN Seroquel provided with effectiveness. Observed and appears to be sleeping at this time. Plan: Pt is conserved and in need of further medication adjustment and monitoring while awaiting placement. Addendum: 03/20/23 at 0424 by Jennifer Felder LVN Pt. awake at 0200 pacing in his room until 0300. Pt. appears to be sleeping at this time.
--- NOTE | 2023-03-20 02:18 | NUR ---
HEALTHCARE ARCHITECT documentation: I have reviewed all interventions, assessments performed and documented by Jennifer SHARMA.
[2023-03-20] MEDS: NICOTINE POLACRILEX 2 MG LOZENGE BC PRN ×3 (03:24→09:04)
[2023-03-20 07:00] VITALS: RESP 16; O2SAT 98
[2023-03-20 07:26] VITALS: BP 133/81; PULSE 88; RESP 16; TEMP 98; O2SAT 98
[2023-03-20] MEDS: busPIRone 5mg tablet PO SCH ×3 (07:31→17:07)
[2023-03-20] MEDS: docusate sod 100mg capsule PO SCH ×2 (07:31→20:24)
[2023-03-20] MEDS: multivitamins, therapeutics tablet PO SCH (07:31)
[2023-03-20] MEDS: quetiapine 100mg tablet PO SCH ×4 (07:31→20:24)
[2023-03-20] MEDS: LORazepam 0.5 MG tablet PO SCH ×3 (07:31→20:23)
[2023-03-20] MEDS: olanzapine 10mg tablet PO SCH (07:32)
[2023-03-20] MEDS: buprenorphine/naloxone 2-0.5mg sublingual tablet SL SCH ×2 (07:32→17:07)
[2023-03-20] MEDS: clotrimazole topical cream 15gm tube TP SCH ×2 (07:32→20:23)
--- NOTE | 2023-03-20 10:40 | NUR ---
Sent updated notes to [facility] office (03/12-03/19). MARIA LUISA Villeda
[2023-03-20] MEDS: LORazepam 1 MG tablet PO SCH (12:42)
--- NOTE | 2023-03-20 12:56 | NUR ---
Reassessment: Pt continues eating well documented with mostly 100% PO intake of regular meals while receiving double protein BIDBD and snacks meeting estimated nutrient needs. LBM 03/19 per EMR. Pt receiving routine and PRN bowel care. No nutrition intervention at this time. Will continue to follow. Recommendations: 1. Continue regular diet; double eggs WB, double protein WS 2. Routine bowel care 3. Weekly scaled wts Addendum: 03/20/23 at [address] Amended: Links added.
--- NOTE | 2023-03-20 16:42 | NUR ---
Nursing Progress Note: Problem : Pt admitted on 5150 for DTO from our ER. Pt reported that he constantly has thoughts of killing people. He does not know where he can live. He is homeless, does not eat and not wearing shoes. Pt has history of Schizophrenia; Bipolar; Anxiety; & Antisocial. Interventions : Maintained a safe and supportive environment, provided clear and simple instructions, monitored behaviors and need for intervention, and maintained Q 15min safety checks. Response : Received pt. up restless in the hallway at the beginning of the shift wearing headphones , he approached the nurse's station and requested his AM medications. Pt. was observed to be laughing very loudly in a somewhat hysterical manner at intervals, and required redirection with effectiveness. Pt. attend breakfast in the Group Room and afterwards retreated back to bed as is his routine. He appeared to be bored and napped intermittently throughout the shift. Pt. denied any mental health s/s and no delusional statements were made. He is looking forward to discharge. Plan : Pt. continues to require a safe and supportive environment and is awaiting placement.
[2023-03-20 19:00] VITALS: RESP 14; O2SAT 96
[2023-03-20 20:00] VITALS: BP 110/60; PULSE 63; RESP 14; TEMP 98.5; O2SAT 96
--- NOTE | 2023-03-20 23:16 | NUR ---
Nursing Progress Note: Problem : Pt admitted on 5150 for DTO from our ER. Pt reported that he constantly has thoughts of killing people. He does not know where he can live. He is homeless, does not eat and not wearing shoes. Pt has history of Schizophrenia; Bipolar; Anxiety; & Antisocial. Interventions : Maintained a safe and supportive environment, provided clear and simple instructions, monitored behaviors and need for intervention, and maintained Q 15min safety checks. Response : Received pt. sleeping at the start of shift change. Pt. was awaken for night medications and was cooperative and compliant. Pt. denies SI/HI,AH/VH. Pt. did not want to attend evening snack tonight and wanted to sleep. Pt. is observed and appears to be sleeping. Plan : Pt. continues to require a safe and supportive environment and is awaiting placement.
[2023-03-21] VITALS (13 sets, daily range): BP systolic 107–130; BP diastolic 70–76; PULSE 69–88; RESP 12–18; TEMP 97.5–98.8; O2SAT 93–96
--- NOTE | 2023-03-21 04:04 | NUR ---
MOLDING ROOM SUPERVISOR documentation: I have reviewed with all interventions, assessments performed and documented by Jennifer MACIELN .
[2023-03-21] MEDS: LORazepam 0.5 MG tablet PO SCH ×3 (07:24→20:33)
[2023-03-21] MEDS: quetiapine 100mg tablet PO SCH ×4 (07:24→20:33)
[2023-03-21] MEDS: multivitamins, therapeutics tablet PO SCH (07:25)
[2023-03-21] MEDS: busPIRone 5mg tablet PO SCH ×3 (07:25→16:44)
[2023-03-21] MEDS: clotrimazole topical cream 15gm tube TP SCH ×2 (07:25→20:33)
[2023-03-21] MEDS: buprenorphine/naloxone 2-0.5mg sublingual tablet SL SCH ×2 (07:25→16:45)
[2023-03-21] MEDS: olanzapine 10mg tablet PO SCH (07:25)
[2023-03-21] MEDS: docusate sod 100mg capsule PO SCH ×2 (07:25→20:33)
[2023-03-21] MEDS: NICOTINE POLACRILEX 2 MG LOZENGE BC PRN ×3 (07:43→13:24)
[2023-03-21] MEDS: magnesium hydroxide 30ml (MOM) UD suspension PO PRN (08:31)
[2023-03-21] MEDS: LORazepam 1 MG tablet PO SCH (12:54)
--- NOTE | 2023-03-21 13:41 | NUR ---
Nursing Progress Note: Problem : Pt admitted on 5150 for DTO from our ER. Pt reported that he constantly has thoughts of killing people. He does not know where he can live. He is homeless, does not eat and not wearing shoes. Pt has history of Schizophrenia; Bipolar; Anxiety; & Antisocial. Interventions : Maintained a safe and supportive environment, provided clear and simple instructions, monitored behaviors and need for intervention, and maintained Q 15min safety checks. Response : Received pt. sleeping in bed at the beginning of the shift, he was awoken for medications and 1:1 was completed at bedside. Pt. continues to present with a somewhat blunted affect, however denies any current depression or anxiety. When questioned regarding A/V/RODRIGUEZ, pt. states, "Not now, but sometimes." Upon further questioning, pt. reports seeing "the shadow of a dog" sometimes at night, and hearing "the static of voices talking over each other." Pt. did not make any delusional statements. Pt. was more present on the unit this shift and attended the patio and group with others. He continues to interact appropriately and no agitated outbursts were exhibited. Plan : Pt. continues to require a safe and supportive environment and is awaiting placement.
--- NOTE | 2023-03-22 02:34 | NUR ---
Nursing Progress Note: Problem : Pt admitted on 5150 for DTO from our ER. Pt reported that he constantly has thoughts of killing people. He does not know where he can live. He is homeless, does not eat and not wearing shoes. Pt has history of Schizophrenia; Bipolar; Anxiety; & Antisocial. Interventions : Maintained a safe and supportive environment, provided clear and simple instructions, monitored behaviors and need for intervention, and maintained Q 15min safety checks. Response : Received pt. sleeping at the beginning of shift change. Pt. was later seen in the hallway looking at the dinner trays and returned back to his room. Pt. was awaken for night medications; he is med compliant. No PRN's requested tonight. Pt. denies SI/HI,AH/VH stating "no, I'm good" and continued sleeping. Observed and appears to be sleeping Plan : Pt. continues to require a safe and supportive environment and is awaiting placement.
[2023-03-22 07:00] VITALS: RESP 18; O2SAT 97
[2023-03-22 07:27] VITALS: BP 110/54; RESP 18; TEMP 98.5; O2SAT 97
[2023-03-22] MEDS: docusate sod 100mg capsule PO SCH ×2 (07:52→20:46)
[2023-03-22] MEDS: LORazepam 0.5 MG tablet PO SCH ×3 (07:52→20:46)
[2023-03-22] MEDS: busPIRone 5mg tablet PO SCH ×3 (07:52→16:49)
[2023-03-22] MEDS: olanzapine 10mg tablet PO SCH (07:53)
[2023-03-22] MEDS: multivitamins, therapeutics tablet PO SCH (07:53)
[2023-03-22] MEDS: clotrimazole topical cream 15gm tube TP SCH ×2 (07:53→20:47)
[2023-03-22] MEDS: buprenorphine/naloxone 2-0.5mg sublingual tablet SL SCH ×2 (07:53→16:49)
[2023-03-22] MEDS: quetiapine 100mg tablet PO SCH ×4 (07:54→20:47)
[2023-03-22] MEDS: NICOTINE POLACRILEX 2 MG LOZENGE BC PRN ×5 (08:41→19:44)
[2023-03-22] MEDS: LORazepam 1 MG tablet PO SCH (12:22)
--- NOTE | 2023-03-22 13:44 | NUR ---
Nursing Progress Note: Problem : Pt admitted on 5150 for DTO from our ER. Pt reported that he constantly has thoughts of killing people. He does not know where he can live. He is homeless, does not eat and not wearing shoes. Pt has history of Schizophrenia; Bipolar; Anxiety; & Antisocial. Interventions : Maintained a safe and supportive environment, provided clear and simple instructions, monitored behaviors and need for intervention, and maintained Q 15min safety checks. Response : Received pt. sleeping in bed at the beginning of the shift, he awoke to attend breakfast in the group room. Pt. received a visit from his parents and visit appeared to go well. 1:1 was completed later, pt. denies all mental health s/s and states, "No, I'm okay today." He did not make any delusional statements. Pt. notified this job specification writer that his roommate had urinated on their bathroom floor, and calmly asked that this be cleaned up. He exhibits good insight and stated, "I'm a little annoyed, but I know that he can't help help it." This job specification writer provided positive encouragement to pt. regarding his being understanding, and he reported contentment. Pt. was again observed to be present on the unit and interacting appropriately with others, no agitated outbursts were exhibited. Plan : Pt. continues to require a safe and supportive environment and is awaiting placement.
[2023-03-22 19:00] VITALS: RESP 17; O2SAT 97
[2023-03-22 20:00] VITALS: BP 126/65; PULSE 80; RESP 17; TEMP 96.3; O2SAT 97
--- NOTE | 2023-03-23 01:38 | NUR ---
Nursing Progress Note: Problem : Pt admitted on 5150 for DTO from our ER. Pt reported that he constantly has thoughts of killing people. He does not know where he can live. He is homeless, does not eat and not wearing shoes. Pt has history of Schizophrenia; Bipolar; Anxiety; & Antisocial. Interventions : Maintained a safe and supportive environment, provided clear and simple instructions, monitored behaviors and need for intervention, and maintained Q 15min safety checks. Response : Received pt. standing and socializing with peers in the lion upon shift change. Pt. is noted smiling and being appropriate. PRN nicotine lozenge provided as requested by pt. Pt. spent time between the recreation room watching TV and the Community Room playing guitar and singing/rapping. Pt. is friendly and cooperative. Medication compliant. Denies SI/HI. When asked about AH, pt. shrugs his shoulders "I'm dealing with it", this underwriter asked if he'd like to share AH and stated "it's like a radio station, but sometimes nothing is there. I sometimes hear the correctional officers voice and my moms voice, but nothing specific". Pt. is observed and appears to be sleeping without difficulty. Plan : Pt. continues to require a safe and supportive environment and is awaiting placement.
--- NOTE | 2023-03-23 04:27 | NUR ---
PIPE LINER documentation: I have reviewed with all interventions, assessments performed and documented by Jennifer MACIELN .
[2023-03-23] MEDS: quetiapine 100mg tablet PO SCH ×4 (07:36→20:27)
[2023-03-23] MEDS: busPIRone 5mg tablet PO SCH ×3 (07:36→16:17)
[2023-03-23] MEDS: docusate sod 100mg capsule PO SCH ×2 (07:37→20:27)
[2023-03-23] MEDS: multivitamins, therapeutics tablet PO SCH (07:37)
[2023-03-23] MEDS: olanzapine 10mg tablet PO SCH (07:37)
[2023-03-23] MEDS: buprenorphine/naloxone 2-0.5mg sublingual tablet SL SCH ×2 (07:37→16:17)
[2023-03-23] MEDS: LORazepam 0.5 MG tablet PO SCH ×3 (07:37→20:27)
[2023-03-23 08:00] VITALS: BP 116/48; PULSE 54; RESP 18; TEMP 98.6; O2SAT 98
[2023-03-23] MEDS: NICOTINE POLACRILEX 2 MG LOZENGE BC PRN ×3 (08:35→21:27)
--- NOTE | 2023-03-23 09:05 | NUR ---
PLACEMENT UPDATE Sent updates to [facility], they were reviewing packets a few days ago. Packet is in que at [facility], [facility], [facility], [place], [place]. Client has been declined at [facility]. MARIA LUISA Villeda
[2023-03-23] MEDS: clotrimazole topical cream 15gm tube TP SCH ×2 (11:15→20:00)
[2023-03-23] MEDS: LORazepam 1 MG tablet PO SCH (12:07)
--- NOTE | 2023-03-23 15:50 | NUR ---
Nursing Progress Note: Problem: Pt admitted on 5150 for DTO from our ER. Pt reported that he constantly has thoughts of killing people. He does not know where he can live. He is homeless, does not eat and not wearing shoes. Pt has history of Schizophrenia; Bipolar; Anxiety; & Antisocial. Interventions: Provide medication administration & medication management; Maintained a safe & supportive environment; Clear & simple instructions; Direction & encouragement regarding performance of ADLs; monitored behaviors & maintained clear boundaries; Patient physical assessment & 1:1 patient interview; Therapeutic conversation & active listening; Patient education & monitoring. Response: Received patient who slept in bed until approximately 0750 then woke up to take his medications without hesitation. Patient was pleasant and cooperative and had one Nicotine Lozenge before lunch time. Patient rested in bed after ambulating multiple laps around the lion with peers this morning, then fell asleep in his bed at 10:45 until he was woke up to take his noon medications at 1230. Patient ate meals and participated in snack times throughout the day. Patient returned back to bed after lunch and rested until dinner. Patient denies SI/AV/AH & when speaking to peers today was talking about the drug cartel in [place] and also had homicidal ideation. Plan: Pt. continues to require a safe and supportive environment and is awaiting placement.
[2023-03-23 19:29] VITALS: BP 148/88; PULSE 94; RESP 14; TEMP 98.2; O2SAT 94; O2SAT 98
[2023-03-23] MEDS: methyl salicylate/menthol cream 57gm TP PRN (20:32)
--- NOTE | 2023-03-24 00:51 | NUR ---
Nursing Progress Note: Problem : Pt admitted on 5150 for DTO from our ER. Pt reported that he constantly has thoughts of killing people. He does not know where he can live. He is homeless, does not eat and not wearing shoes. Pt has history of Schizophrenia; Bipolar; Anxiety; & Antisocial. Interventions : Maintained a safe and supportive environment, provided clear and simple instructions, monitored behaviors and need for intervention, and maintained Q 15min safety checks. Response : Patient is pleasant and cooperative with care; compliant with medication. PRN Bengay provided for back pain and Nicotine lozenge provided per request. Patient denies SI, HI, A/VH; no apparent delusions expressed this shift. He was social with peers, played the [email or web address] and participated in HS snack prior to bed; observed sleeping and does not appear to be having difficulty. Plan : Pt. continues to require a safe and supportive environment and is awaiting placement.
[2023-03-24] MEDS: olanzapine 10mg tablet PO SCH (07:20)
[2023-03-24] MEDS: LORazepam 0.5 MG tablet PO SCH ×3 (07:20→20:43)
[2023-03-24] MEDS: busPIRone 5mg tablet PO SCH ×3 (07:20→15:58)
[2023-03-24] MEDS: docusate sod 100mg capsule PO SCH ×2 (07:20→20:44)
[2023-03-24] MEDS: buprenorphine/naloxone 2-0.5mg sublingual tablet SL SCH ×2 (07:21→17:24)
[2023-03-24] MEDS: multivitamins, therapeutics tablet PO SCH (07:21)
[2023-03-24] MEDS: quetiapine 100mg tablet PO SCH ×4 (07:21→20:44)
[2023-03-24 08:00] VITALS: BP 159/69; PULSE 74; RESP 16; TEMP 98.2; O2SAT 97
[2023-03-24] MEDS: clotrimazole topical cream 15gm tube TP SCH ×2 (08:00→20:00)
[2023-03-24] MEDS: LORazepam 1 MG tablet PO SCH (12:29)
--- NOTE | 2023-03-24 15:48 | NUR ---
Nursing Progress Note: Problem: Pt admitted on 5150 for DTO from our ER. Pt reported that he constantly has thoughts of killing people. He does not know where he can live. He is homeless, does not eat and not wearing shoes. Pt has history of Schizophrenia; Bipolar; Anxiety; & Antisocial. Interventions: Provide medication administration & medication management; Maintained a safe & supportive environment; Clear & simple instructions; Direction & encouragement regarding performance of ADLs; monitored behaviors & maintained clear boundaries; Patient physical assessment & 1:1 patient interview; Therapeutic conversation & active listening; Patient education & monitoring. Response: Received patient when he was sleeping in bed. Patient woke up at 0710 and requested coffee and ambulated in the hallway as well as took some lessons from another patient who was teaching him how to play the guitar. Patient enjoyed the lessons given to him. Patient requested a Nicotine Lozenge and then returned to bed to sleep for about an hour. Patient participated in snack time and again returned to bed. Patient was calm and cooperative throughout the day. Plan: Pt. continues to require a safe and supportive environment and is awaiting placement.
[2023-03-24] MEDS: NICOTINE POLACRILEX 2 MG LOZENGE BC PRN ×2 (18:02→20:43)
[2023-03-24 19:43] VITALS: BP 124/85; PULSE 76; RESP 14; TEMP 98.1; O2SAT 98
--- NOTE | 2023-03-25 00:59 | NUR ---
Nursing Progress Note: Problem : Pt admitted on 5150 for DTO from our ER. Pt reported that he constantly has thoughts of killing people. He does not know where he can live. He is homeless, does not eat and not wearing shoes. Pt has history of Schizophrenia; Bipolar; Anxiety; & Antisocial. Interventions : Maintained a safe and supportive environment, provided clear and simple instructions, monitored behaviors and need for intervention, and maintained Q 15min safety checks. Response : Patient is pleasant and cooperative with care; compliant with medication. PRN Nicotine lozenge provided per request. Patient denied SI, HI, A/VH; no apparent delusions expressed. He was social with peers and participated in HS snack prior to bed; observed sleeping and does not appear to be having difficulty. Plan : Pt. continues to require a safe and supportive environment and is awaiting placement.
--- NOTE | 2023-03-25 01:58 | NUR ---
RUBY [employer] SOFTWARE DEVELOPER documentation: I have reviewed and agree with all interventions, assessments performed and documented by Sandra SHARMA.
[2023-03-25 07:00] VITALS: RESP 16; O2SAT 95
[2023-03-25 08:00] VITALS: BP 102/44; PULSE 61; RESP 16; TEMP 98.7; O2SAT 95
[2023-03-25] MEDS: LORazepam 0.5 MG tablet PO SCH ×3 (08:27→20:35)
[2023-03-25] MEDS: docusate sod 100mg capsule PO SCH ×2 (08:28→20:35)
[2023-03-25] MEDS: busPIRone 5mg tablet PO SCH ×3 (08:28→17:07)
[2023-03-25] MEDS: quetiapine 100mg tablet PO SCH ×4 (08:29→20:35)
[2023-03-25] MEDS: multivitamins, therapeutics tablet PO SCH (08:29)
[2023-03-25] MEDS: olanzapine 10mg tablet PO SCH (08:29)
[2023-03-25] MEDS: buprenorphine/naloxone 2-0.5mg sublingual tablet SL SCH ×2 (08:30→17:07)
[2023-03-25] MEDS: clotrimazole topical cream 15gm tube TP SCH ×2 (08:30→20:00)
[2023-03-25] MEDS: magnesium hydroxide 30ml (MOM) UD suspension PO PRN (08:38)
[2023-03-25] MEDS: NICOTINE POLACRILEX 2 MG LOZENGE BC PRN ×3 (08:38→18:04)
[2023-03-25] MEDS: LORazepam 1 MG tablet PO SCH (12:44)
--- NOTE | 2023-03-25 15:09 | NUR ---
Nursing Progress Note: Chan Ortega Problem: Pt admitted on 5150 for DTO from our ER. Pt reported that he constantly has thoughts of killing people. He does not know where he can live. He is homeless, does not eat and not wearing shoes. Pt has history of Schizophrenia, bipolar, anxiety, antisocial. Interventions: Provided 1:1 assessment, therapeutic communication, active listening, provided clear and simple instructions, medication administration/education/monitoring, behavior monitoring and intervention as needed; provided direction, positive reinforcement, reality orientation, maintained a safe and supportive environment, and Q15 minute safety checks. Response: Received pt. sleeping in bed w/o distress at the beginning of the shift. Pt woke for vitals and was cooperative. Pt returned to sleep and woke for breakfast. Pt ate meals well and engaged with assessments well. He took AM and other meds throughout the day w/o issue and used multiple nicotine lozenges this shift. Pt spoke in hallway about phones and security issues. Pt responded well to limits concerning talking about violence and crime, as others may be triggered. He did not appear to be responding to internal stimuli. Pt was social with others in community room. Patient denies SI/HI or AV/Hs at this time. Plan: Pt is conserved and in need of further medication adjustment and monitoring while awaiting placement.
[2023-03-25 19:31] VITALS: BP 102/53; PULSE 63; RESP 14; TEMP 97.4; O2SAT 95
--- NOTE | 2023-03-26 01:06 | NUR ---
Nursing Progress Note: Problem : Pt admitted on 5150 for DTO from our ER. Pt reported that he constantly has thoughts of killing people. He does not know where he can live. He is homeless, does not eat and not wearing shoes. Pt has history of Schizophrenia; Bipolar; Anxiety; & Antisocial. Interventions : Maintained a safe and supportive environment, provided clear and simple instructions, monitored behaviors and need for intervention, and maintained Q 15min safety checks. Response : Patient is pleasant and cooperative with care; increased fatigue presented. Compliant with medication. He denied SI, HI, A/VH; no apparent delusions expressed. Patient remained in bed; did not participate in HS snack this shift. He is observed sleeping and does not appear to be having difficulty. Plan : Pt. continues to require a safe and supportive environment and is awaiting placement.
--- NOTE | 2023-03-26 01:34 | NUR ---
DAYCARE TEACHER documentation: I have reviewed all interventions, assessments performed and documented by Sandra SHARMA.
[2023-03-26 07:00] VITALS: RESP 16; O2SAT 94
[2023-03-26 07:22] VITALS: BP 103/54; PULSE 62; RESP 16; TEMP 98.6; O2SAT 94
[2023-03-26] MEDS: clotrimazole topical cream 15gm tube TP SCH ×2 (07:49→20:07)
[2023-03-26] MEDS: quetiapine 100mg tablet PO SCH ×4 (07:49→20:06)
[2023-03-26] MEDS: multivitamins, therapeutics tablet PO SCH (07:50)
[2023-03-26] MEDS: busPIRone 5mg tablet PO SCH ×3 (07:50→16:25)
[2023-03-26] MEDS: buprenorphine/naloxone 2-0.5mg sublingual tablet SL SCH ×2 (07:50→17:03)
[2023-03-26] MEDS: LORazepam 0.5 MG tablet PO SCH ×3 (07:50→20:07)
[2023-03-26] MEDS: olanzapine 10mg tablet PO SCH (07:50)
[2023-03-26] MEDS: docusate sod 100mg capsule PO SCH ×2 (07:50→20:07)
[2023-03-26] MEDS: NICOTINE POLACRILEX 2 MG LOZENGE BC PRN ×5 (07:56→18:23)
[2023-03-26] MEDS: methyl salicylate/menthol cream 57gm TP PRN (08:59)
[2023-03-26] MEDS: LORazepam 1 MG tablet PO SCH (12:00)
--- NOTE | 2023-03-26 17:18 | NUR ---
Nursing Progress Note: Chan Ortega Problem: Pt admitted on 5150 for DTO from our ER. Pt reported that he constantly has thoughts of killing people. He does not know where he can live. He is homeless, does not eat and not wearing shoes. Pt has history of Schizophrenia, bipolar, anxiety, antisocial. Interventions: Provided 1:1 assessment, therapeutic communication, active listening, provided clear and simple instructions, medication administration/education/monitoring, behavior monitoring and intervention as needed; provided direction, positive reinforcement, reality orientation, maintained a safe and supportive environment, and Q15 minute safety checks. Response: Patient up for breakfast, patient is socializing with peers. Patient takes medications readily. Patient takes nicotine lozenges every 2-3 hours on dayshift. Patient is cooperative with treatment. Patient is sleeping most of the day, getting up for snacks and then sleeping the rest of the time. Patient states that he is bored and there is very little to do on the unit. Patient got up at 16:00 and was watching t.v. with peers in rec room. Plan: Pt is conserved and in need of further medication adjustment and monitoring while awaiting placement.
[2023-03-26 19:00] VITALS: RESP 18; O2SAT 99
--- NOTE | 2023-03-26 19:40 | NUR ---
Nursing Progress Note: Problem: Pt admitted on 5150 for DTO from our ER. Pt reported that he constantly has thoughts of killing people. He does not know where he can live. He is homeless, does not eat and not wearing shoes. Pt has history of Schizophrenia, bipolar, anxiety, antisocial. Interventions: Provided 1:1 assessment, therapeutic communication, active listening, provided clear and simple instructions, medication administration/education/monitoring, behavior monitoring and intervention as needed; provided direction, positive reinforcement, reality orientation, maintained a safe and supportive environment, and Q15 minute safety checks. Response: Patient was ambulatory and socializing at shift change, he listened to headphone music. The patient later laid in bed covered with a blanket. 1:1 Interview at bedside. Patient is alert and oriented. He denies S/I, H/I, or any hallucinations. Patient states "I'm doing OK." Patient ate a full dinner. He denies depression. He smiles while talking to this fiction and nonfiction prose writer. Patient states a normal BM today. He denies a need for stool softener tonight. Patient is cooperative. Plan: Pt is conserved and in need of further medication adjustment and monitoring while awaiting placement.
[2023-03-26 20:00] VITALS: BP 132/80; PULSE 70; RESP 18; TEMP 98.2; O2SAT 99
[2023-03-27] MEDS: buprenorphine/naloxone 2-0.5mg sublingual tablet SL SCH ×2 (07:05→17:24)
[2023-03-27] MEDS: docusate sod 100mg capsule PO SCH ×2 (07:05→20:26)
[2023-03-27] MEDS: olanzapine 10mg tablet PO SCH (07:05)
[2023-03-27] MEDS: busPIRone 5mg tablet PO SCH ×3 (07:05→16:12)
[2023-03-27] MEDS: LORazepam 0.5 MG tablet PO SCH ×3 (07:05→20:26)
[2023-03-27] MEDS: quetiapine 100mg tablet PO SCH ×4 (07:06→20:27)
[2023-03-27] MEDS: multivitamins, therapeutics tablet PO SCH (07:06)
[2023-03-27 07:26] VITALS: BP 120/54; PULSE 60; RESP 12; TEMP 98; O2SAT 97
[2023-03-27] MEDS: NICOTINE POLACRILEX 2 MG LOZENGE BC PRN ×3 (08:19→18:07)
[2023-03-27] MEDS: LORazepam 1 MG tablet PO SCH (12:33)
[2023-03-27] MEDS: clotrimazole topical cream 15gm tube TP SCH ×2 (12:35→20:26)
--- NOTE | 2023-03-27 14:23 | NUR ---
Sent updated notes to [facility] office (03/20-03/26). MARIA LUISA Villeda
--- NOTE | 2023-03-27 17:05 | NUR ---
Nursing Progress Note: Problem: Pt admitted on 5150 for DTO from our ER. Pt reported that he constantly has thoughts of killing people. He does not know where he can live. He is homeless, does not eat and not wearing shoes. Pt has history of Schizophrenia; Bipolar; Anxiety; & Antisocial. Interventions: Provide medication administration & medication management; Maintained a safe & supportive environment; Clear & simple instructions; Direction & encouragement regarding performance of ADLs; monitored behaviors & maintained clear boundaries; Patient physical assessment & 1:1 patient interview; Therapeutic conversation & active listening; Patient education & monitoring. Response: Received patient who was sleeping until approximately 0740 then was awakened to take his 0800 medications. Patient took his medications without hesitation then got up out of bed and ambulated in the lion as well as sitting in the Community Room listening to music videos. Patient was pleasant and cooperative and after breakfast went to his room and fell asleep until 1100 and participated in snack time. Patient is linear and denies any mental health symptoms. Patient is frequently requesting more food at meal times and in between meals. Patient continued throughout the afternoon to interact with peers in the Community Room and hallway, as well as watching TV. Plan: Pt. continues to require a safe and supportive environment and is awaiting placement.
[2023-03-27 19:00] VITALS: RESP 16; O2SAT 94
[2023-03-27 20:00] VITALS: BP 120/51; PULSE 67; RESP 16; TEMP 98.7; O2SAT 94
--- NOTE | 2023-03-28 01:23 | NUR ---
Nursing Progress Note: Problem: Pt admitted on 5150 for DTO from our ER. Pt reported that he constantly has thoughts of killing people. He does not know where he can live. He is homeless, does not eat and not wearing shoes. Pt has history of Schizophrenia; Bipolar; Anxiety; & Antisocial. Interventions: Provide medication administration & medication management; Maintained a safe & supportive environment; Clear & simple instructions; Direction & encouragement regarding performance of ADLs; monitored behaviors & maintained clear boundaries; Patient physical assessment & 1:1 patient interview; Therapeutic conversation & active listening; Patient education & monitoring. Response: Received pt. awake for a short time at change of shift. Pt. was later observed sleeping in bed with blankets over him. He was later awaken for night medications. Upon waking pt. is pleasant and cooperative. Pt. remained in his room sleeping through the shift. Pt. denies SI/HI,AH/VH. No delusional statements noted on this shift. Observed and appears to be sleeping. Plan: Pt. continues to require a safe and supportive environment and is awaiting placement.
--- NOTE | 2023-03-28 04:26 | NUR ---
BUILDING AND CONSTRUCTION MANAGER documentation: I have reviewed with all interventions, assessments performed and documented by Jennifer MACIELN .
[2023-03-28 07:00] VITALS: BP 109/48; PULSE 81; RESP 16; RESP 18; TEMP 98.1; O2SAT 95
[2023-03-28] MEDS: multivitamins, therapeutics tablet PO SCH (07:40)
[2023-03-28] MEDS: quetiapine 100mg tablet PO SCH ×4 (07:40→20:40)
[2023-03-28] MEDS: LORazepam 0.5 MG tablet PO SCH ×3 (07:41→20:40)
[2023-03-28] MEDS: olanzapine 10mg tablet PO SCH (07:41)
[2023-03-28] MEDS: docusate sod 100mg capsule PO SCH ×2 (07:41→20:40)
[2023-03-28] MEDS: buprenorphine/naloxone 2-0.5mg sublingual tablet SL SCH ×2 (07:41→17:16)
[2023-03-28] MEDS: busPIRone 5mg tablet PO SCH ×3 (07:41→16:25)
[2023-03-28] MEDS: NICOTINE POLACRILEX 2 MG LOZENGE BC PRN ×4 (07:42→20:40)
[2023-03-28] MEDS: clotrimazole topical cream 15gm tube TP SCH ×2 (07:42→20:40)
[2023-03-28] MEDS: LORazepam 1 MG tablet PO SCH (12:08)
--- NOTE | 2023-03-28 17:18 | NUR ---
Nursing Progress Note: Problem: Pt admitted on 5150 for DTO from our ER. Pt reported that he constantly has thoughts of killing people. He does not know where he can live. He is homeless, does not eat and not wearing shoes. Pt has history of Schizophrenia; Bipolar; Anxiety; & Antisocial. Interventions: Provide medication administration & medication management; Maintained a safe & supportive environment; Clear & simple instructions; Direction & encouragement regarding performance of ADLs; monitored behaviors & maintained clear boundaries; Patient physical assessment & 1:1 patient interview; Therapeutic conversation & active listening; Patient education & monitoring. Response: Received patient sleeping in bed at shift change. Patient awoke and received his medications and attended breakfast with his peers. Patient took a nap after breakfast until snack time, patient awoke and then went back to bed until lunch. Patient is ambulating the hallways between rooms and talking with peers and watching t.v. Patient denies all MH symptoms. Patient is cooperative and pleasant.
[2023-03-28 19:00] VITALS: RESP 16; O2SAT 98
[2023-03-28 19:58] VITALS: BP 120/64; PULSE 65; RESP 16; TEMP 97.8; O2SAT 98
--- NOTE | 2023-03-28 22:15 | NUR ---
Nursing Progress Note: Problem: Pt admitted on 5150 for DTO from our ER. Pt reported that he constantly has thoughts of killing people. He does not know where he can live. He is homeless, does not eat and not wearing shoes. Pt has history of Schizophrenia; Bipolar; Anxiety; & Antisocial. Interventions: One to one with the patient. Severity of psychotic symptoms assessed. Physical assessment completed. Assessed for medication side effects. Response: The patient slept the first part of the shift but was up for snack and very pleasant. He took his evening medications. He denied medication side effects. He denied having AH. He did not make any delusional statements during the assessment. Plan: Continue hospitalization until a suitable discharge plan can be arranged though the public guardian's office.
[2023-03-29] MEDS: NICOTINE POLACRILEX 2 MG LOZENGE BC PRN ×4 (05:03→19:48)
[2023-03-29] MEDS: quetiapine 100mg tablet PO PRN (05:39)
[2023-03-29 07:00] VITALS: BP 130/73; PULSE 82; RESP 16; TEMP 97.8; O2SAT 94
[2023-03-29] MEDS: busPIRone 5mg tablet PO SCH ×3 (07:22→16:17)
[2023-03-29] MEDS: multivitamins, therapeutics tablet PO SCH (07:22)
[2023-03-29] MEDS: olanzapine 10mg tablet PO SCH (07:23)
[2023-03-29] MEDS: buprenorphine/naloxone 2-0.5mg sublingual tablet SL SCH ×2 (07:23→17:24)
[2023-03-29] MEDS: LORazepam 0.5 MG tablet PO SCH ×3 (07:23→20:06)
[2023-03-29] MEDS: quetiapine 100mg tablet PO SCH ×4 (07:24→20:06)
[2023-03-29] MEDS: docusate sod 100mg capsule PO SCH ×2 (07:24→20:06)
[2023-03-29] MEDS: clotrimazole topical cream 15gm tube TP SCH ×2 (07:24→20:00)
--- NOTE | 2023-03-29 09:18 | NUR ---
F/u 03/29: Pt now changed to vegan diet despite previously requesting cheeseburgers and jalapeno poppers; unsure of reasoning though continues eating well ~100% PO meals w/ double protein TID and snacks meeting estimated nutrient needs. LBM 03/27 per EMR. No nutrition intervention at this time. Will continue to follow. Recommendations: 1. Continue regular diet; double eggs WB, double protein BIDLD 2. Routine bowel care 3. Weekly scaled wts Addendum: 03/29/23 at [address] Amended: Links added. Addendum: 03/29/23 at [address] F/u 03/29: Pt now changed to vegan diet despite previously requesting cheeseburgers and jalapeno poppers; unsure of reasoning though continues eating well ~100% PO meals w/ double protein TID and snacks meeting estimated nutrient needs. LBM 03/27 per EMR. No nutrition intervention at this time. Will continue to follow. Recommendations: 1. Continue vegan diet; double entree TIDWM. Return to regular diet per pt/MD discretion 2. Routine bowel care 3. Weekly scaled wts
[2023-03-29] MEDS: LORazepam 1 MG tablet PO SCH (12:11)
--- NOTE | 2023-03-29 17:51 | NUR ---
Nursing Progress Note: Problem: Pt admitted on 5150 for DTO from our ER. Pt reported that he constantly has thoughts of killing people. He does not know where he can live. He is homeless, does not eat and not wearing shoes. Pt has history of Schizophrenia; Bipolar; Anxiety; & Antisocial. Interventions: Provide medication administration & medication management; Maintained a safe & supportive environment; Clear & simple instructions; Direction & encouragement regarding performance of ADLs; monitored behaviors & maintained clear boundaries; Patient physical assessment & 1:1 patient interview; Therapeutic conversation & active listening; Patient education & monitoring. Response: Patient awake ambulating hallways at change of shift. Reportedly, patient is going to bed early then getting up in the middle of the night and staying awake. Patient has been getting in the pattern of sleeping all day, and staying at night. Patient took his medications and went to breakfast, then went back to bed. I requested that the patient stay awake the rest of the day, so that he could sleep at night, patient made it known that he would not be staying awake during the daytime hours. Today, RN had to wake patient up to give him his sedating medication each time except for 8 a.m. med pass. Patient readily takes medications, eats his meals and snacks and sleeps. When he is awake he is highly social with peers. Patient does not communicate to staff other than to make his needs known. Answers closed ended questions only. Plan: Pt. continues to require a safe and supportive environment and is awaiting placement.
[2023-03-29 18:44] VITALS: RESP 16; O2SAT 94
[2023-03-29 19:45] VITALS: BP 122/69; PULSE 78; RESP 16; TEMP 98; O2SAT 97
--- NOTE | 2023-03-29 22:35 | NUR ---
Nursing Progress Note: Problem: Pt admitted on 5150 for DTO from our ER. Pt reported that he constantly has thoughts of killing people. He does not know where he can live. He is homeless, does not eat and not wearing shoes. Pt has history of Schizophrenia; Bipolar; Anxiety; & Antisocial. Interventions: Provide medication administration & medication management; Maintained a safe & supportive environment; Clear & simple instructions; Direction & encouragement regarding performance of ADLs; monitored behaviors & maintained clear boundaries; Patient physical assessment & 1:1 patient interview; Therapeutic conversation & active listening; Patient education & monitoring. Response: Pt was in the hallway walking at change of shift. Pt is pleasant and cooperative, gives brief answers to questions and walks away when he is done answering. Pt socializes with peers and spent time watching tv. Pt requesting prn nicotine lozenge and took HS meds. Called pharmacy for lotrimin cream and pt went to bed stating "I dont need it anyway." before it was available. Plan: Pt. continues to require a safe and supportive environment and is awaiting placement.
[2023-03-30] MEDS: clotrimazole topical cream 15gm tube TP SCH ×2 (08:00→20:36)
[2023-03-30] MEDS: olanzapine 10mg tablet PO SCH (08:24)
[2023-03-30] MEDS: NICOTINE POLACRILEX 2 MG LOZENGE BC PRN ×5 (08:24→18:22)
[2023-03-30] MEDS: busPIRone 5mg tablet PO SCH ×3 (08:24→16:51)
[2023-03-30] MEDS: multivitamins, therapeutics tablet PO SCH (08:25)
[2023-03-30] MEDS: buprenorphine/naloxone 2-0.5mg sublingual tablet SL SCH ×2 (08:25→16:48)
[2023-03-30] MEDS: docusate sod 100mg capsule PO SCH ×2 (08:25→20:21)
[2023-03-30] MEDS: LORazepam 0.5 MG tablet PO SCH ×3 (08:25→20:22)
[2023-03-30] MEDS: quetiapine 100mg tablet PO SCH ×4 (08:25→20:22)
[2023-03-30 08:29] VITALS: BP 118/74; PULSE 80; RESP 18; TEMP 98; O2SAT 99
--- NOTE | 2023-03-30 09:14 | NUR ---
PLACEMENT UPDATE Packet is in que at [facility], [facility], [place], [place]. Client has been declined at [facility]. MARIA LUISA Villeda
[2023-03-30] MEDS: quetiapine 100mg tablet PO PRN (11:03)
[2023-03-30] MEDS: LORazepam 1 MG tablet PO SCH (12:19)
--- NOTE | 2023-03-30 15:45 | NUR ---
NURSING PROGRESS NOTE Problem: Pt admitted on 5150 for DTO from our ER. Pt reported that he constantly has thoughts of killing people. He does not know where he can live. He is homeless, does not eat and not wearing shoes. Pt has history of Schizophrenia; Bipolar; Anxiety; & Antisocial. Interventions: One to one to assess mood, therapeutic communication, active listening, provided clear and simple instructions, medication administration/education/monitoring, behavior monitoring and intervention as needed, positive reinforcement, reality orientation, maintained a safe and supportive environment, and Q15 minute safety checks. Response: Received sleeping at shift change. Pt is at baseline and awaiting placement. Pt was visible on unit. Pt is social with peers, noted card playing, sitting around table talking. Pt paces halls, but not in any hurry. Pt is compliant with medication and care. Pt reports LBM was 2 days ago, has no symptoms, declined intervention. Pt reported to principal technical writer that he still struggles with cravings for meth and at times this causes much anxiety. Dr. Whitaker was notified, and he increased pts Suboxone to 3 tabs, twice a day. Pt is polite to staff and peers. No behaviors. No delusional comments made this shift. Plan: Pt. continues to require a safe and supportive environment and is awaiting placement.
[2023-03-30 18:52] VITALS: RESP 18; O2SAT 99
[2023-03-30 19:29] VITALS: BP 116/78; PULSE 99; RESP 16; TEMP 97.7; O2SAT 97
--- NOTE | 2023-03-30 22:19 | NUR ---
NURSING PROGRESS NOTE Problem: Pt admitted on 5150 for DTO from our ER. Pt reported that he constantly has thoughts of killing people. He does not know where he can live. He is homeless, does not eat and not wearing shoes. Pt has history of Schizophrenia; Bipolar; Anxiety; & Antisocial. Interventions: One to one to assess mood, therapeutic communication, active listening, provided clear and simple instructions, medication administration/education/monitoring, behavior monitoring and intervention as needed, positive reinforcement, reality orientation, maintained a safe and supportive environment, and Q15 minute safety checks. Response: Pt was in the hallway at change of shift. Pt reports he is feeling "good just bored." Pt is pleasant and cooperative with staff. Talks about "gangs taking over [place]." Pt socializes well with peers. Pt spent evening socializing and watching tv. Pt had snacks, took HS meds and went to bed. Plan: Pt. continues to require a safe and supportive environment and is awaiting placement.
[2023-03-31 07:55] VITALS: BP 130/68; PULSE 61; RESP 16; TEMP 97.8; O2SAT 98
[2023-03-31] MEDS: NICOTINE POLACRILEX 2 MG LOZENGE BC PRN ×3 (08:23→15:35)
[2023-03-31] MEDS: multivitamins, therapeutics tablet PO SCH (08:23)
[2023-03-31] MEDS: docusate sod 100mg capsule PO SCH ×2 (08:23→20:14)
[2023-03-31] MEDS: quetiapine 100mg tablet PO SCH ×4 (08:23→20:14)
[2023-03-31] MEDS: buprenorphine/naloxone 2-0.5mg sublingual tablet SL SCH ×2 (08:23→16:12)
[2023-03-31] MEDS: LORazepam 0.5 MG tablet PO SCH ×3 (08:24→20:14)
[2023-03-31] MEDS: olanzapine 10mg tablet PO SCH (08:24)
[2023-03-31] MEDS: busPIRone 5mg tablet PO SCH ×3 (08:24→16:12)
[2023-03-31] MEDS: clotrimazole topical cream 15gm tube TP SCH ×2 (08:25→20:15)
[2023-03-31] MEDS: LORazepam 1 MG tablet PO SCH (12:44)
--- NOTE | 2023-03-31 14:17 | NUR ---
NURSING PROGRESS NOTE Problem: Pt admitted on 5150 for DTO from our ER. Pt reported that he constantly has thoughts of killing people. He does not know where he can live. He is homeless, does not eat and not wearing shoes. Pt has history of Schizophrenia; Bipolar; Anxiety; & Antisocial. Interventions: One to one to assess mood, therapeutic communication, active listening, provided clear and simple instructions, medication administration/education/monitoring, behavior monitoring and intervention as needed, positive reinforcement, reality orientation, maintained a safe and supportive environment, and Q15 minute safety checks. Response: Pt sleeping at shift change as is his pattern, wakes and returns to bed. Pt continues to follow his plan of care. Pt was visible on unit, social with a group of male peers. Pt denies all psychotic symptoms. Pt requested MOM with his morning medication, then declined it saying it all worked out. Reported large BM. When asked if he feels a difference with increased dose of Suboxone pt responded Ya, it thinks its all good. Pt is pleasant and polite with staff and peers. No behaviors. Plan: Pt. continues to require a safe and supportive environment and is awaiting placement.
[2023-03-31 18:27] VITALS: RESP 16; O2SAT 98
[2023-03-31 19:26] VITALS: BP 120/72; PULSE 73; RESP 16; TEMP 97.8; O2SAT 98
--- NOTE | 2023-03-31 20:33 | NUR ---
NURSING PROGRESS NOTE Problem: Pt admitted on 5150 for DTO from our ER. Pt reported that he constantly has thoughts of killing people. He does not know where he can live. He is homeless, does not eat and not wearing shoes. Pt has history of Schizophrenia; Bipolar; Anxiety; & Antisocial. Interventions: One to one to assess mood, therapeutic communication, active listening, provided clear and simple instructions, medication administration/education/monitoring, behavior monitoring and intervention as needed, positive reinforcement, reality orientation, maintained a safe and supportive environment, and Q15 minute safety checks. Response: Pt sleeping at change of shift. pt states he is feeling really tired tonight, but denies s/i, denies depression. "No I feel good, just need sleep tonight." Pt got out of bed for snacks and took HS meds and went back to bed. Plan: Pt. continues to require a safe and supportive environment and is awaiting placement.
[2023-04-01 07:00] VITALS: BP 121/56; PULSE 68; RESP 16; TEMP 98.5; O2SAT 98
[2023-04-01] MEDS: clotrimazole topical cream 15gm tube TP SCH ×2 (08:00→19:54)
[2023-04-01] MEDS: buprenorphine/naloxone 2-0.5mg sublingual tablet SL SCH ×2 (08:02→16:53)
[2023-04-01] MEDS: busPIRone 5mg tablet PO SCH ×3 (08:02→16:53)
[2023-04-01] MEDS: olanzapine 10mg tablet PO SCH (08:03)
[2023-04-01] MEDS: quetiapine 100mg tablet PO SCH ×4 (08:03→19:54)
[2023-04-01] MEDS: multivitamins, therapeutics tablet PO SCH (08:03)
[2023-04-01] MEDS: LORazepam 0.5 MG tablet PO SCH ×3 (08:03→19:54)
[2023-04-01] MEDS: docusate sod 100mg capsule PO SCH ×2 (08:03→19:54)
[2023-04-01] MEDS: NICOTINE POLACRILEX 2 MG LOZENGE BC PRN ×5 (08:46→21:02)
[2023-04-01] MEDS: LORazepam 1 MG tablet PO SCH (12:41)
--- NOTE | 2023-04-01 17:36 | NUR ---
Nursing Progress Note: Chan Problem: Pt admitted on 5150 for DTO from our ER. Pt reported that he constantly has thoughts of killing people. He does not know where he can live. He is homeless, does not eat and not wearing shoes. Pt has history of Schizophrenia; Bipolar; Anxiety; & Antisocial. Interventions: Provided 1:1 assessment, therapeutic communication, active listening, provided clear and simple instructions, medication administration/education/monitoring, positive reinforcement, maintained a safe and supportive environment, and Q15 minute safety checks. Response: Patient received sleeping in his room at change of shift. He was awoken and was receptive to scheduled medication and 1:1 assessment. Pt joined for breakfast in the group room, noted to be social with peers. He is pleasant, calm, and cooperative with care. Pt retreated back to his room after breakfast and was noted taking a nap. He denies SI/HI, AH or VH. Does not appear to be responding to internal stimuli. Patient planned and hosted a game of [employer] with other peers on the unit today. He is noted interacting appropriately and is friendly toward others on the unit. No behaviors noted on this shift. He joined for all meal and snack times in the group room with peers. Plan: Pt. continues to require a safe and supportive environment and is awaiting placement.
--- NOTE | 2023-04-01 17:48 | NUR ---
RN agrees with all assessments, notes and interventions.
[2023-04-01 20:00] VITALS: BP 133/58; PULSE 63; RESP 17; TEMP 98; O2SAT 96
--- NOTE | 2023-04-02 04:57 | NUR ---
Nursing Progress Note: Chan Problem: Pt admitted on 5150 for DTO from our ER. Pt reported that he constantly has thoughts of killing people. He does not know where he can live. He is homeless, does not eat and not wearing shoes. Pt has history of Schizophrenia; Bipolar; Anxiety; & Antisocial. Interventions: Provided 1:1 assessment, therapeutic communication, active listening, provided clear and simple instructions, medication administration/education/monitoring, positive reinforcement, maintained a safe and supportive environment, and Q15 minute safety checks. Response: Patient was found sitting in rec room at beginning of shift. Patient was observe pacing halls socializing with other patients. Patient asked for prn nicotine lozenge and retuned to pacing halls. Patient participated in dinner and listened to headphones. Patient took night medications without issue. Patient watched movie in rec room until going to bed. Plan: Pt. continues to require a safe and supportive environment and is awaiting placement.
--- NOTE | 2023-04-02 05:11 | NUR ---
BINDERY SUPERVISOR documentation: I have reviewed and agree with all interventions, assessments performed and documented by Rigo Jones LVN.
[2023-04-02 07:00] VITALS: BP 112/50; PULSE 79; RESP 16; TEMP 97.7; O2SAT 95
[2023-04-02] MEDS: docusate sod 100mg capsule PO SCH ×2 (07:21→20:34)
[2023-04-02] MEDS: buprenorphine/naloxone 2-0.5mg sublingual tablet SL SCH ×2 (07:21→16:13)
[2023-04-02] MEDS: quetiapine 100mg tablet PO SCH ×4 (07:21→20:34)
[2023-04-02] MEDS: multivitamins, therapeutics tablet PO SCH (07:21)
[2023-04-02] MEDS: LORazepam 0.5 MG tablet PO SCH ×3 (07:21→20:35)
[2023-04-02] MEDS: olanzapine 10mg tablet PO SCH (07:21)
[2023-04-02] MEDS: busPIRone 5mg tablet PO SCH ×3 (07:22→16:13)
[2023-04-02] MEDS: clotrimazole topical cream 15gm tube TP SCH ×3 (07:22→20:38)
[2023-04-02] MEDS: NICOTINE POLACRILEX 2 MG LOZENGE BC PRN ×5 (08:17→21:36)
[2023-04-02] MEDS: LORazepam 1 MG tablet PO SCH (11:46)
--- NOTE | 2023-04-02 16:05 | NUR ---
Nursing Progress Note: Problem: Pt admitted on 5150 for DTO from our ER. Pt reported that he constantly has thoughts of killing people. He does not know where he can live. He is homeless, does not eat and not wearing shoes. Pt has history of Schizophrenia, bipolar,anxiety,antisocial. Interventions: 1:1 assessment, therapeutic conversation, active listening, medication administration/education/monitoring, ensured contract for safety, behavior monitoring and intervention as needed; provided distraction, redirection, positive reinforcement, and Q15 minute safety checks Response: Pt was up before breakfast and cooperative with medications. Pt denies SI/HI/AH/VH. Pt did not appear to be responding to internal stimuli. Pt socialized with select peers. No delusional statements made or heard by this RN. Plan: Pt is conserved and in need of further medication adjustment and monitoring while awaiting placement.
[2023-04-02 20:00] VITALS: BP 137/81; PULSE 75; RESP 18; TEMP 98.4; O2SAT 97
[2023-04-03] MEDS: NICOTINE POLACRILEX 2 MG LOZENGE BC PRN ×4 (02:32→18:37)
--- NOTE | 2023-04-03 02:54 | NUR ---
Nursing Progress Note: Problem: Pt admitted on 5150 for DTO from our ER. Pt reported that he constantly has thoughts of killing people. He does not know where he can live. He is homeless, does not eat and not wearing shoes. Pt has history of Schizophrenia, bipolar,anxiety,antisocial. Interventions: 1:1 assessment, therapeutic conversation, active listening, medication administration/education/monitoring, ensured contract for safety, behavior monitoring and intervention as needed; provided distraction, redirection, positive reinforcement, and Q15 minute safety checks Response: Patient was received sitting in rec room at beginning of shift. Patient requested a nicotine lozenge and started pacing around unit and back and forth between rec rooms. Patient took all night mediations without issue, patient participated in snack and went to bed. Patient woke up in middle of night asking for prn nicotine lozenge and retuned to bed. Patient got up 30 mins later complaining of difficulty falling back to sleep and asked for prn Seroquel. Patient continued to get up and down until morning. Plan: Pt is conserved and in need of further medication adjustment and monitoring while awaiting placement.
[2023-04-03] MEDS: quetiapine 100mg tablet PO PRN (03:00)
[2023-04-03 07:00] VITALS: RESP 12; O2SAT 98
[2023-04-03 07:36] VITALS: BP 109/47; PULSE 74; RESP 12; TEMP 98.5; O2SAT 98
[2023-04-03] MEDS: quetiapine 100mg tablet PO SCH ×4 (08:22→19:48)
[2023-04-03] MEDS: busPIRone 5mg tablet PO SCH ×3 (08:23→16:20)
[2023-04-03] MEDS: buprenorphine/naloxone 2-0.5mg sublingual tablet SL SCH ×2 (08:23→17:00)
[2023-04-03] MEDS: LORazepam 0.5 MG tablet PO SCH ×3 (08:23→19:48)
[2023-04-03] MEDS: olanzapine 10mg tablet PO SCH (08:23)
[2023-04-03] MEDS: multivitamins, therapeutics tablet PO SCH (08:23)
[2023-04-03] MEDS: docusate sod 100mg capsule PO SCH ×2 (08:23→19:48)
[2023-04-03] MEDS: clotrimazole topical cream 15gm tube TP SCH ×2 (08:24→19:54)
--- NOTE | 2023-04-03 11:42 | NUR ---
Sent updated notes to [facility] office (03/27-04/02). MARIA LUISA Villeda
[2023-04-03] MEDS: LORazepam 1 MG tablet PO SCH (12:10)
--- NOTE | 2023-04-03 16:32 | NUR ---
Nursing Progress Note: Problem: Pt admitted on 5150 for DTO from our ER. Pt reported that he constantly has thoughts of killing people. He does not know where he can live. He is homeless, does not eat and not wearing shoes. Pt has history of Schizophrenia, bipolar, anxiety, antisocial. Interventions: 1:1 assessment, therapeutic conversation, active listening, medication administration/education/monitoring, ensured contract for safety, behavior monitoring and intervention as needed; provided distraction, redirection, positive reinforcement, and Q15 minute safety checks Response: Patient was sleeping in bed at change of shift. Patient awakens for breakfast and takes his medications and returns to his room for a nap. Patient slept most of the day, except for meals and snacks. Patient denies all mental health symptoms. Plan: Pt is conserved and in need of further medication adjustment and monitoring while awaiting placement.
[2023-04-03 19:00] VITALS: BP 124/70; PULSE 91; RESP 19; TEMP 97.9; O2SAT 97
--- NOTE | 2023-04-04 04:17 | NUR ---
Nursing Progress Note: Problem: Pt admitted on 5150 for DTO from our ER. Pt reported that he constantly has thoughts of killing people. He does not know where he can live. He is homeless, does not eat and not wearing shoes. Pt has history of Schizophrenia, bipolar, anxiety, antisocial. Interventions: 1:1 assessment, therapeutic conversation, active listening, medication administration/education/monitoring, ensured contract for safety, behavior monitoring and intervention as needed; provided distraction, redirection, positive reinforcement, and Q15 minute safety checks Response: Patient was received sitting in room listening to headphones. Patient requested prn nicotine lozenge and retuned to pacing halls. Patient took night medications without issue and participated in snack. Patient was cooperative and polite. Plan: Pt is conserved and in need of further medication adjustment and monitoring while awaiting placement.
--- NOTE | 2023-04-04 04:52 | NUR ---
SCALE AGENT documentation: I have reviewed all interventions, assessments performed and documented by Rigo SHARMA.
[2023-04-04 07:55] VITALS: RESP 18; O2SAT 98
[2023-04-04 08:00] VITALS: BP 103/50; PULSE 69; RESP 18; TEMP 97.6; O2SAT 98
[2023-04-04] MEDS: quetiapine 100mg tablet PO SCH ×4 (08:20→20:04)
[2023-04-04] MEDS: buprenorphine/naloxone 2-0.5mg sublingual tablet SL SCH ×2 (08:21→16:21)
[2023-04-04] MEDS: docusate sod 100mg capsule PO SCH ×2 (08:22→20:04)
[2023-04-04] MEDS: multivitamins, therapeutics tablet PO SCH (08:22)
[2023-04-04] MEDS: busPIRone 5mg tablet PO SCH ×3 (08:22→16:20)
[2023-04-04] MEDS: olanzapine 10mg tablet PO SCH (08:22)
[2023-04-04] MEDS: LORazepam 0.5 MG tablet PO SCH ×3 (08:23→20:04)
[2023-04-04] MEDS: clotrimazole topical cream 15gm tube TP SCH ×2 (08:25→20:04)
[2023-04-04] MEDS: NICOTINE POLACRILEX 2 MG LOZENGE BC PRN ×6 (08:43→22:11)
[2023-04-04] MEDS: quetiapine 100mg tablet PO PRN (09:48)
[2023-04-04] MEDS: LORazepam 1 MG tablet PO SCH (12:00)
--- NOTE | 2023-04-04 14:31 | NUR ---
Nursing Progress Note: Problem: Pt admitted on 5150 for DTO from our ER. Pt reported that he constantly has thoughts of killing people. He does not know where he can live. He is homeless, does not eat and not wearing shoes. Pt has history of Schizophrenia, bipolar, anxiety, antisocial. Interventions: 1:1 assessment, therapeutic conversation, active listening, medication administration/education/monitoring, ensured contract for safety, behavior monitoring and intervention as needed; provided distraction, redirection, positive reinforcement, and Q15 minute safety checks Response: Patient was received sleeping at beginning of shift. Patient requested prn nicotine lozenge and participated in breakfast. Patient talked to staff about his protestant preferences and then started walking and talking to new patients. Patient took all morning and afternoon medication without issue. Patient complained of anxiety and requested prn Seroquel. Patient was observed pacing unit listening to headphones. Plan: Pt is conserved and in need of further medication adjustment and monitoring while awaiting placement.
[2023-04-04 19:00] VITALS: BP 135/95; PULSE 103; RESP 12; TEMP 97.6; O2SAT 96
[2023-04-05] MEDS: NICOTINE POLACRILEX 2 MG LOZENGE BC PRN ×6 (01:39→20:05)
--- NOTE | 2023-04-05 03:56 | NUR ---
PROGRESS NOTE: Client was cooperative, mood was stable. Paced on unit but was pleasant with staff and clients. Awake at 03:00 and made delusional statements about having "devices implanted in me when I was released from [facility]. They only chose 13 people to do it to."
[2023-04-05] MEDS: busPIRone 5mg tablet PO SCH ×3 (07:56→15:58)
[2023-04-05] MEDS: multivitamins, therapeutics tablet PO SCH (07:56)
[2023-04-05] MEDS: olanzapine 10mg tablet PO SCH (07:56)
[2023-04-05] MEDS: LORazepam 0.5 MG tablet PO SCH ×3 (07:56→20:06)
[2023-04-05] MEDS: quetiapine 100mg tablet PO SCH ×4 (07:56→20:05)
[2023-04-05] MEDS: docusate sod 100mg capsule PO SCH ×2 (07:56→20:06)
[2023-04-05] MEDS: buprenorphine/naloxone 2-0.5mg sublingual tablet SL SCH ×2 (07:57→17:05)
[2023-04-05 08:00] VITALS: BP 108/54; PULSE 66; RESP 16; TEMP 98; O2SAT 94
[2023-04-05] MEDS: clotrimazole topical cream 15gm tube TP SCH ×2 (08:00→20:06)
[2023-04-05] MEDS: LORazepam 1 MG tablet PO SCH (12:51)
--- NOTE | 2023-04-05 16:35 | NUR ---
Nursing Progress Note: Problem: Pt admitted on 5150 for DTO from our ER. Pt reported that he constantly has thoughts of killing people. He does not know where he can live. He is homeless, does not eat and not wearing shoes. Pt has history of Schizophrenia; Bipolar; Anxiety; & Antisocial. Interventions: Provide medication administration & medication management; Maintained a safe & supportive environment; Clear & simple instructions; Direction & encouragement regarding performance of ADLs; monitored behaviors & maintained clear boundaries; Patient physical assessment & 1:1 patient interview; Therapeutic conversation & active listening; Patient education & monitoring. Response: Received patient at 0630. Patient was woke up at 0755 to come to the Community Room for breakfast. Patient took his 0800 medications without hesitation then requested a Nicotine Lozenge. Patient participated in snack time at 1100 then went to rest in his bed before lunch. Patient woke up for lunch and ambulated in the hallway and participated in playing cards with peers. Patient denies SI/AV/AH & there were no s/s of homicidal ideation. Plan: Pt. continues to require a safe and supportive environment and is awaiting placement.
[2023-04-05 18:38] VITALS: RESP 16; O2SAT 94
[2023-04-05 19:32] VITALS: BP 106/54; PULSE 79; RESP 16; TEMP 98.2; O2SAT 97
[2023-04-05] MEDS: quetiapine 100mg tablet PO PRN (20:05)
--- NOTE | 2023-04-05 23:31 | NUR ---
Nursing Progress Note: Problem: Pt admitted on 5150 for DTO from our ER. Pt reported that he constantly has thoughts of killing people. He does not know where he can live. He is homeless, does not eat and not wearing shoes. Pt has history of Schizophrenia; Bipolar; Anxiety; & Antisocial. Interventions: Provide medication administration & medication management; Maintained a safe & supportive environment; Clear & simple instructions; Direction & encouragement regarding performance of ADLs; monitored behaviors & maintained clear boundaries; Patient physical assessment & 1:1 patient interview; Therapeutic conversation & active listening; Patient education & monitoring. Response: Pt was in his room napping at change of shift. Pt is calm cooperative states he is having a good day. Pt denies s/i, denies a/vh. Pt states he wants to make sure his friends get snack tonight. Noticed patient serving some of his peers snacks. Pt took HS meds and requested prn nicotine lozenge and additional prn seroquel. Pt appears to be anxious but states he thinks he needs additional seroquel to help him "be calm for sleep". Pt had snacks and went to bed. Plan: Pt. continues to require a safe and supportive environment and is awaiting placement.
[2023-04-06] MEDS: busPIRone 5mg tablet PO SCH ×3 (07:29→16:53)
[2023-04-06] MEDS: LORazepam 0.5 MG tablet PO SCH ×3 (07:29→20:05)
[2023-04-06] MEDS: quetiapine 100mg tablet PO SCH ×4 (07:30→20:05)
[2023-04-06] MEDS: olanzapine 10mg tablet PO SCH (07:30)
[2023-04-06] MEDS: buprenorphine/naloxone 2-0.5mg sublingual tablet SL SCH ×2 (07:30→16:53)
[2023-04-06] MEDS: multivitamins, therapeutics tablet PO SCH (07:30)
[2023-04-06] MEDS: docusate sod 100mg capsule PO SCH ×2 (07:30→20:05)
[2023-04-06] MEDS: NICOTINE POLACRILEX 2 MG LOZENGE BC PRN ×3 (07:49→18:21)
[2023-04-06 08:00] VITALS: BP 115/60; PULSE 71; RESP 16; TEMP 98.4; O2SAT 93
[2023-04-06] MEDS: clotrimazole topical cream 15gm tube TP SCH ×2 (08:00→20:05)
[2023-04-06] MEDS: LORazepam 1 MG tablet PO SCH (13:04)
[2023-04-06] MEDS: quetiapine 100mg tablet PO PRN (13:57)
--- NOTE | 2023-04-06 14:39 | NUR ---
Pt attended group today. Brandie Rodriguez LCSW
--- NOTE | 2023-04-06 16:28 | NUR ---
Nursing Progress Note: Problem: Pt admitted on 5150 for DTO from our ER. Pt reported that he constantly has thoughts of killing people. He does not know where he can live. He is homeless, does not eat and not wearing shoes. Pt has history of Schizophrenia; Bipolar; Anxiety; & Antisocial. Interventions: Provide medication administration & medication management; Maintained a safe & supportive environment; Clear & simple instructions; Direction & encouragement regarding performance of ADLs; monitored behaviors & maintained clear boundaries; Patient physical assessment & 1:1 patient interview; Therapeutic conversation & active listening; Patient education & monitoring. Response: Received patient at 0630 while he was sleeping in bed. Medications were administered at approximately 0730 and patient went back to bed until breakfast was served. Patient ate breakfast in the Community Room then ambulated around the unit then went to bed and slept until snack time. Patient attended the Group Meeting starting at 1130 and during the Group Meeting he stood up and started yelling extremely loud that a patient in [id number] was in his room going through my things and hes got his name on his door but I dont want him going through my things. Patient was redirected by ZANA Diego, and the patient left the Group Meeting. Patient was then directed by JENN Jerome, to clean up his room and get his laundry done and get his room organized, which he did. Patient ate lunch in the Community Room and it was reported to this Senior Account Representative that this patient as well as another peer were communicating with this patient holding up 1 finger then 2 fingers with the peer sitting knee to knee with him at a dining table. The peer pointed at the 1 finger held up by this patient and then they stopped at that time. Patient was observed during the lunch hour, while in the Community Room, sitting closely with the other peer for approximately one hour. Patients 1200 medications were given to him at 1255, and the patient was asked to open his mouth as it did not appear as if he swallowed his medications or the sip of water that he took before he immediately handed me back the medicine cup. Patient was asked to open his mouth, to ensure that he had swallowed his medications. When patient opened his mouth, his medications (Ativan, Buspar & Seroquel) were still in his mouth. Patient was directed to take 2 more large drinks of water before his mouth was cleared of the medications. Informed the patient that he shouldnt try to hold his medications or we will need to start crushing his medications and give them to him in applesauce. Patient then retreated to his room, and despite being asked multiple times today to keep his door open at all times, he again closed the door. Patient was then counseled on the importance of keeping his door open and followed through doing this after our conversation. During the time from [id number], the patient was seen sitting on the floor of his room doing sit ups and other exercises. Patient appeared slightly anxious and restless and at approximately 1430 he was given a Seroquel per his request. Patient laid down in bed to rest and fell asleep at 1500. Plan: Pt. continues to require a safe and supportive environment and is awaiting placement.
[2023-04-06 18:30] VITALS: RESP 16; O2SAT 93
[2023-04-06 20:24] VITALS: BP 134/78; PULSE 111; RESP 18; TEMP 97.6; O2SAT 98
--- NOTE | 2023-04-06 22:28 | NUR ---
Nursing Progress Note: Problem: Pt admitted on 5150 for DTO from our ER. Pt reported that he constantly has thoughts of killing people. He does not know where he can live. He is homeless, does not eat and not wearing shoes. Pt has history of Schizophrenia; Bipolar; Anxiety; & Antisocial. Interventions: Provide medication administration & medication management; Maintained a safe & supportive environment; Clear & simple instructions; Direction & encouragement regarding performance of ADLs; monitored behaviors & maintained clear boundaries; Patient physical assessment & 1:1 patient interview; Therapeutic conversation & active listening; Patient education & monitoring. Response: Pt was in the hallway talking with staff at change of shift. Pt is pleasant and cooperative. Pt talks about his family and [place] Pt talks about his diet and vegan dieting and socializing with female peer in the [place]. Pt was later overheard yelling at another patient about going into his room. Unclear if other patient went into the room or not. Pt was redirected to avoid interactions with this patient and he complied. Pt took HS meds and socialized before going to bed. Plan: Pt. continues to require a safe and supportive environment and is awaiting placement.
[2023-04-07 07:55] VITALS: BP 120/57; PULSE 69; RESP 16; TEMP 98.8; O2SAT 96
[2023-04-07] MEDS: clotrimazole topical cream 15gm tube TP SCH ×2 (08:00→20:09)
[2023-04-07] MEDS: busPIRone 5mg tablet PO SCH ×3 (08:01→17:15)
[2023-04-07] MEDS: docusate sod 100mg capsule PO SCH ×2 (08:02→20:09)
[2023-04-07] MEDS: quetiapine 100mg tablet PO SCH ×4 (08:02→20:08)
[2023-04-07] MEDS: buprenorphine/naloxone 2-0.5mg sublingual tablet SL SCH ×2 (08:02→17:14)
[2023-04-07] MEDS: olanzapine 10mg tablet PO SCH (08:02)
[2023-04-07] MEDS: NICOTINE POLACRILEX 2 MG LOZENGE BC PRN ×4 (08:02→20:47)
[2023-04-07] MEDS: LORazepam 0.5 MG tablet PO SCH ×3 (08:02→20:09)
[2023-04-07] MEDS: multivitamins, therapeutics tablet PO SCH (08:02)
[2023-04-07] MEDS: magnesium hydroxide 30ml (MOM) UD suspension PO PRN (09:03)
[2023-04-07] MEDS: LORazepam 1 MG tablet PO SCH (13:01)
--- NOTE | 2023-04-07 15:39 | NUR ---
Pt. attended group today. GORGE ChaudhryW
--- NOTE | 2023-04-07 15:53 | NUR ---
NURSING PROGRESS NOTE Problem: Pt admitted on 5150 for DTO from our ER. Pt reported that he constantly has thoughts of killing people. He does not know where he can live. He is homeless, does not eat and not wearing shoes. Pt has history of Schizophrenia; Bipolar; Anxiety; & Antisocial. Interventions: One to one to assess mood, therapeutic communication, active listening, provided clear and simple instructions, medication administration/education/monitoring, behavior monitoring and intervention as needed, positive reinforcement, reality orientation, maintained a safe and supportive environment, and Q15 minute safety checks. Response: Pt sleeping at shift change as is his pattern, wakes and returns to bed. Pt continues to follow his plan of care. Pt was visible on unit, however did nap intermittently throughout the shift. Pt attended and participated in group. Pt denies SI/HI/A/VH. Pt talked about looking forward to [facility] I can smoke cigars there. Pt c/o constipation and requested MOM with some effect. No other GI symptoms. No behaviors this shift. Plan: Patient is conserved and awaiting placement.
[2023-04-07 19:13] VITALS: BP 111/54; PULSE 83; RESP 14; TEMP 98; O2SAT 95
[2023-04-07 19:36] VITALS: RESP 14; O2SAT 95
[2023-04-07] MEDS: quetiapine 100mg tablet PO PRN (21:49)
--- NOTE | 2023-04-07 21:54 | NUR ---
NURSING PROGRESS NOTE Problem: Pt admitted on 5150 for DTO from our ER. Pt reported that he constantly has thoughts of killing people. He does not know where he can live. He is homeless, does not eat and not wearing shoes. Pt has history of Schizophrenia; Bipolar; Anxiety; & Antisocial. Interventions: One to one to assess mood, therapeutic communication, active listening, provided clear and simple instructions, medication administration/education/monitoring, behavior monitoring and intervention as needed, positive reinforcement, reality orientation, maintained a safe and supportive environment, and Q15 minute safety checks. Response: Pt was napping at change of shift. Pt woke for vitals and reports he is doing "good". Pt reports no needs. Pt got out of bed at snack time and took HS meds. Pt remained awake watching tv and socializing with peers, then asked for prn Seroquel before going to bed. Plan: Patient is conserved and awaiting placement.
[2023-04-08] MEDS: NICOTINE POLACRILEX 2 MG LOZENGE BC PRN ×4 (06:35→19:56)
[2023-04-08 07:43] VITALS: BP 124/66; PULSE 82; RESP 17; TEMP 98.7; O2SAT 97
[2023-04-08] MEDS: LORazepam 0.5 MG tablet PO SCH ×3 (08:37→20:13)
[2023-04-08] MEDS: buprenorphine/naloxone 2-0.5mg sublingual tablet SL SCH ×2 (08:37→17:28)
[2023-04-08] MEDS: olanzapine 10mg tablet PO SCH (08:37)
[2023-04-08] MEDS: multivitamins, therapeutics tablet PO SCH (08:37)
[2023-04-08] MEDS: docusate sod 100mg capsule PO SCH ×2 (08:37→20:14)
[2023-04-08] MEDS: quetiapine 100mg tablet PO SCH ×4 (08:37→20:13)
[2023-04-08] MEDS: clotrimazole topical cream 15gm tube TP SCH ×2 (08:38→20:00)
[2023-04-08] MEDS: busPIRone 5mg tablet PO SCH ×3 (09:40→17:28)
--- NOTE | 2023-04-08 10:52 | NUR ---
Reassessment: Pt continues eating well, documented with mostly 100% PO intake of meals while receiving double protein TID meeting estimated nutrient needs. LBM 04/07, receiving routine and PRN bowel care. No further nutrition intervention implemented at this time. Will continue to follow. Recommendations: 1. Continue vegan diet; double entree TIDWM. Return to regular diet per pt/provider discretion 2. Routine bowel care 3. Weekly scaled wts Addendum: 04/08/23 at [address] RD Amended: Links added.
[2023-04-08] MEDS: LORazepam 1 MG tablet PO SCH (11:57)
--- NOTE | 2023-04-08 14:12 | NUR ---
NURSING PROGRESS NOTE Problem: Pt admitted on 5150 for DTO from our ER. Pt reported that he constantly has thoughts of killing people. He does not know where he can live. He is homeless, does not eat and not wearing shoes. Pt has history of Schizophrenia; Bipolar; Anxiety; & Antisocial. Interventions: One to one to assess mood, therapeutic communication, active listening, provided clear and simple instructions, medication administration/education/monitoring, behavior monitoring and intervention as needed, positive reinforcement, reality orientation, maintained a safe and supportive environment, and Q15 minute safety checks. Response: Received patient wake hanging out by nurses station. Pt was pleasant on greeting, signed good morning with his hands. Pt continues to follow his plan of care, again attended and participated in group. Pt denies SI/HI/A/VH. Pt social with peers. No behaviors this shift. PRNs Nicotine lozenge. Plan: Patient is conserved and awaiting placement.
--- NOTE | 2023-04-08 14:29 | NUR ---
Sent last 7 days of notes to Public Guardian, Jl Foss, as he requested. MARIA LUIAS Villeda
[2023-04-08 19:00] VITALS: RESP 16; O2SAT 97
[2023-04-08 19:39] VITALS: BP 133/79; PULSE 96; RESP 16; TEMP 97.7; O2SAT 97
[2023-04-08] MEDS: quetiapine 100mg tablet PO PRN (20:14)
--- NOTE | 2023-04-08 22:18 | NUR ---
NURSING PROGRESS NOTE Problem: Pt admitted on 5150 for DTO from our ER. Pt reported that he constantly has thoughts of killing people. He does not know where he can live. He is homeless, does not eat and not wearing shoes. Pt has history of Schizophrenia; Bipolar; Anxiety; & Antisocial. Interventions: One to one to assess mood, therapeutic communication, active listening, provided clear and simple instructions, medication administration/education/monitoring, behavior monitoring and intervention as needed, positive reinforcement, reality orientation, maintained a safe and supportive environment, and Q15 minute safety checks. Response: Received Pt in hallway talking with peers. Pt in pleasant mood and spent most of evening socializing with staff in hallway and talking about a variety of topics. Pt denies SI/HI and AH/VHs at this time. Pt calm and cooperative. Pt participated in snack and took HS meds, including prn Seroquel w/o issue and he went to bed. Plan: Patient is conserved and awaiting placement.
[2023-04-09] MEDS: NICOTINE POLACRILEX 2 MG LOZENGE BC PRN ×4 (00:58→21:12)
[2023-04-09 07:55] VITALS: BP 115/49; PULSE 66; RESP 16; TEMP 98.8; O2SAT 97
[2023-04-09] MEDS: multivitamins, therapeutics tablet PO SCH (08:12)
[2023-04-09] MEDS: docusate sod 100mg capsule PO SCH ×2 (08:12→20:25)
[2023-04-09] MEDS: quetiapine 100mg tablet PO SCH ×4 (08:12→20:24)
[2023-04-09] MEDS: olanzapine 10mg tablet PO SCH (08:12)
[2023-04-09] MEDS: buprenorphine/naloxone 2-0.5mg sublingual tablet SL SCH ×2 (08:13→17:47)
[2023-04-09] MEDS: LORazepam 0.5 MG tablet PO SCH ×3 (08:13→20:25)
[2023-04-09] MEDS: busPIRone 5mg tablet PO SCH ×3 (09:34→17:47)
[2023-04-09] MEDS: clotrimazole topical cream 15gm tube TP SCH ×2 (09:36→20:25)
[2023-04-09] MEDS: LORazepam 1 MG tablet PO SCH (12:50)
--- NOTE | 2023-04-09 15:35 | NUR ---
Sent updated notes to [facility] office for placement purposes. [facility] requested updates. MARIA LUISA Villeda Addendum: 04/09/23 at 1537 by Luz MYRICK (04/03-04/08).
--- NOTE | 2023-04-09 15:49 | NUR ---
NURSING PROGRESS NOTE Problem: Pt admitted on 5150 for DTO from our ER. Pt reported that he constantly has thoughts of killing people. He does not know where he can live. He is homeless, does not eat and not wearing shoes. Pt has history of Schizophrenia; Bipolar; Anxiety; & Antisocial. Interventions: One to one to assess mood, therapeutic communication, active listening, provided clear and simple instructions, medication administration/education/monitoring, behavior monitoring and intervention as needed, positive reinforcement, reality orientation, maintained a safe and supportive environment, and Q15 minute safety checks. Response: Received patient sleeping at shift change. Pt woke prior to breakfast, requested his morning medications. Pt continues to follow his plan of care, again attended and participated in group. Pt denies SI/HI/A/VH. Pt social with peers. No behaviors this shift. PRNs Nicotine lozenge. Pt had a 3 hour nap in afternoon. Plan: Patient is conserved and awaiting placement.
[2023-04-09] MEDS: quetiapine 100mg tablet PO PRN (18:57)
[2023-04-09 19:00] VITALS: RESP 16; O2SAT 97
[2023-04-09 20:00] VITALS: BP 141/80; PULSE 95; RESP 16; TEMP 98.4; O2SAT 97
--- NOTE | 2023-04-10 05:34 | NUR ---
Nursing Progress Note: Chan Ramos Problem: Pt admitted on 5150 for DTO from our ER. Pt reported that he constantly has thoughts of killing people. He does not know where he can live. He is homeless, does not eat and not wearing shoes. Pt has history of Schizophrenia, bipolar, anxiety, antisocial. Interventions: 1:1 assessment, therapeutic communication, active listening, provided clear and simple instructions, medication administration/education/monitoring, behavior monitoring and intervention as needed; provided distraction, direction, positive reinforcement, reality orientation, maintained a safe and supportive environment, and Q15 minute safety checks. Response: Received pt.in hallway, he is pacing and anxious. Pt asked for a prn of Seroquel 100mg and medications was administered. Pt is alert and oriented x4. Pt denies SI/HI/AVH, no delusional statements made. Pt is social with other peers. Pt is pleasant and cooperative with staff. Pt was noticed asking other peers for their group tickets so he could get candy. Injury Prevention Coordinator explained that he needs to attend some groups to acquire tickets. Pt just shrugged and walked away. Pt is medication compliant tonight. PRN of nicotine lozenge given. Monitor for safety q15 minutes. Plan: Pt is conserved and in need of further medication adjustment and monitoring while awaiting placement.
[2023-04-10 07:00] VITALS: RESP 12; O2SAT 97
[2023-04-10 08:00] VITALS: BP 118/51; PULSE 70; RESP 12; TEMP 98.1; O2SAT 97
[2023-04-10] MEDS: buprenorphine/naloxone 2-0.5mg sublingual tablet SL SCH ×2 (08:10→16:23)
[2023-04-10] MEDS: quetiapine 100mg tablet PO SCH ×4 (08:11→20:17)
[2023-04-10] MEDS: LORazepam 0.5 MG tablet PO SCH ×3 (08:11→20:16)
[2023-04-10] MEDS: docusate sod 100mg capsule PO SCH ×2 (08:12→20:17)
[2023-04-10] MEDS: olanzapine 10mg tablet PO SCH (08:12)
[2023-04-10] MEDS: multivitamins, therapeutics tablet PO SCH (08:12)
[2023-04-10] MEDS: busPIRone 5mg tablet PO SCH ×3 (08:12→16:23)
[2023-04-10] MEDS: clotrimazole topical cream 15gm tube TP SCH ×2 (08:36→20:18)
[2023-04-10] MEDS: NICOTINE POLACRILEX 2 MG LOZENGE BC PRN ×4 (10:24→18:32)
[2023-04-10] MEDS: methyl salicylate/menthol cream 57gm TP PRN (10:53)
[2023-04-10] MEDS: mag hydrox/Alum hydrox/simeth 30ml oral suspension PO PRN (10:53)
[2023-04-10] MEDS: LORazepam 1 MG tablet PO SCH (12:28)
--- NOTE | 2023-04-10 16:59 | NUR ---
Nursing Progress Note: Problem: Pt admitted on 5150 for DTO from our ER. Pt reported that he constantly has thoughts of killing people. He does not know where he can live. He is homeless, does not eat and not wearing shoes. Pt has history of Schizophrenia, bipolar, anxiety, antisocial. Interventions: Therapeutic communication, active listening, providing safe and therapeutic environment, Medication administration/ education/ monitoring, monitoring behavior and intervening as needed, distraction interventions available, positive reinforcement, reality orientation, and Q15 min safety checks Response: Pt received in dining room, eating breakfast. Pt engaged with staff politely. Cooperative. Pt compliant with all medication administration. Pt joking around with poem writer during initial interaction. Pt alert and oriented x 4. Pt denies SI/HI/AVH, no delusional statements made. Pt continues to be social with other peers. Multiple conversation with patient occurred on shift. Pt discussed his prior [facility] time experiences. Pt discussed different work ideas upon his discharge. Pt denies any thoughts to harm others. Pt appears responsive to current POC. PRN of nicotine lozenge given. Pt refused to go to group today due to another patient who was leading [employer]. He requested to stay in room during activity. Pt napped today for approximately 2 hours Monitor for safety q15 minutes. Plan: Pt is conserved and in need of further medication adjustment and monitoring while awaiting placement.
[2023-04-10 19:00] VITALS: RESP 18; O2SAT 99
[2023-04-10 20:00] VITALS: BP 145/86; PULSE 89; RESP 18; TEMP 97.5; O2SAT 99
[2023-04-10] MEDS: quetiapine 100mg tablet PO PRN (20:16)
--- NOTE | 2023-04-11 05:19 | NUR ---
Nursing Progress Note: Chan Ramos Problem: Pt admitted on 5150 for DTO from our ER. Pt reported that he constantly has thoughts of killing people. He does not know where he can live. He is homeless, does not eat and not wearing shoes. Pt has history of Schizophrenia, bipolar, anxiety, antisocial. Interventions: 1:1 assessment, therapeutic communication, active listening, provided clear and simple instructions, medication administration/education/monitoring, behavior monitoring and intervention as needed; provided distraction, direction, positive reinforcement, reality orientation, maintained a safe and supportive environment, and Q15 minute safety checks. Response: Received pt.in hallway, he is asking for a nicotine lozenge. Pt is calm, pleasant and cooperative. Pt denies SI/HI/AVH. No delusional statements made tonight. Pt is medication compliant. Pt walks around the unit listening to headphones. Pt socializing with select peers. No behavioral issues this shift, Monitor for safety q15 minutes. Plan: Pt is conserved and in need of further medication adjustment and monitoring while awaiting placement.
[2023-04-11 07:00] VITALS: RESP 12; O2SAT 98
[2023-04-11 08:00] VITALS: BP 120/62; PULSE 77; RESP 12; TEMP 98.3; O2SAT 98
[2023-04-11] MEDS: clotrimazole topical cream 15gm tube TP SCH ×2 (08:00→20:00)
[2023-04-11] MEDS: quetiapine 100mg tablet PO SCH ×4 (08:13→20:07)
[2023-04-11] MEDS: LORazepam 0.5 MG tablet PO SCH ×3 (08:13→20:08)
[2023-04-11] MEDS: docusate sod 100mg capsule PO SCH ×2 (08:13→20:08)
[2023-04-11] MEDS: busPIRone 5mg tablet PO SCH ×3 (08:14→16:56)
[2023-04-11] MEDS: buprenorphine/naloxone 2-0.5mg sublingual tablet SL SCH ×2 (08:14→16:56)
[2023-04-11] MEDS: olanzapine 10mg tablet PO SCH (08:14)
[2023-04-11] MEDS: multivitamins, therapeutics tablet PO SCH (08:14)
[2023-04-11] MEDS: NICOTINE POLACRILEX 2 MG LOZENGE BC PRN ×3 (08:14→20:10)
[2023-04-11] MEDS: mag hydrox/Alum hydrox/simeth 30ml oral suspension PO PRN (08:38)
[2023-04-11] MEDS: LORazepam 1 MG tablet PO SCH (11:58)
--- NOTE | 2023-04-11 16:07 | NUR ---
NURSING PROGRESS NOTE Levon Problem: Pt admitted on 5150 for DTO from our ER. Pt reported that he constantly has thoughts of killing people. He does not know where he can live. He is homeless, does not eat and not wearing shoes. Pt has history of Schizophrenia; Bipolar; Anxiety; & Antisocial. Interventions: One to one to assess mood, therapeutic communication, active listening, provided clear and simple instructions, medication administration/education/monitoring, behavior monitoring and intervention as needed, positive reinforcement, reality orientation, maintained a safe and supportive environment, and Q15 minute safety checks. Response: Received Pt in bed sleeping w/o distress. He woke and was cooperative with vitals; ate breakfast well and took AM meds w/o issue. Pt received nicotine lozenges and Maalox prn this shift. Pt denies SI/HI and AH/VHs at this time. Pt calm and cooperative. He napped most of the morning and was overall pleasant this shift. Plan: Patient is conserved and awaiting placement.
[2023-04-11] MEDS: quetiapine 100mg tablet PO PRN (18:46)
[2023-04-11] MEDS: acetaminophen 325mg tablet PO PRN (18:47)
[2023-04-11 19:00] VITALS: RESP 16; O2SAT 94
[2023-04-11 20:00] VITALS: BP 136/64; PULSE 91; RESP 16; TEMP 98.2; O2SAT 94
--- NOTE | 2023-04-12 03:29 | NUR ---
NURSING PROGRESS NOTE : Levon Problem: Pt admitted on 5150 for DTO from our ER. Pt reported that he constantly has thoughts of killing people. He does not know where he can live. He is homeless, does not eat and not wearing shoes. Pt has history of Schizophrenia; Bipolar; Anxiety; & Antisocial. Interventions: One to one to assess mood, therapeutic communication, active listening, provided clear and simple instructions, medication administration/education/monitoring, behavior monitoring and intervention as needed, positive reinforcement, reality orientation, maintained a safe and supportive environment, and Q15 minute safety checks. Response: Patient was received sitting in community room socializing with other patients. Patient was positive and cooperative with care. Patient requested nicotine lozenge and started talking to staff about his concerns about when he leaves here due to a lot of people being made at him for things he did when he was on drugs. Patient stats that his family members tell him their will be multiple people after him so he may have to move. Patient took all night medications without issue and retuned to pacing halls while listening to headphones. Plan: Patient is conserved and awaiting placement.
[2023-04-12 07:00] VITALS: RESP 16; O2SAT 97
[2023-04-12 08:00] VITALS: BP 138/68; PULSE 68; RESP 16; TEMP 98.5; O2SAT 97
[2023-04-12] MEDS: multivitamins, therapeutics tablet PO SCH (08:11)
[2023-04-12] MEDS: olanzapine 10mg tablet PO SCH (08:11)
[2023-04-12] MEDS: docusate sod 100mg capsule PO SCH ×2 (08:11→20:05)
[2023-04-12] MEDS: busPIRone 5mg tablet PO SCH ×3 (08:11→16:23)
[2023-04-12] MEDS: quetiapine 100mg tablet PO SCH ×4 (08:11→20:05)
[2023-04-12] MEDS: NICOTINE POLACRILEX 2 MG LOZENGE BC PRN ×5 (08:12→19:30)
[2023-04-12] MEDS: LORazepam 0.5 MG tablet PO SCH ×3 (08:12→20:05)
[2023-04-12] MEDS: buprenorphine/naloxone 2-0.5mg sublingual tablet SL SCH ×2 (08:12→16:23)
[2023-04-12] MEDS: clotrimazole topical cream 15gm tube TP SCH ×2 (08:14→20:04)
[2023-04-12] MEDS: quetiapine 100mg tablet PO PRN (09:16)
[2023-04-12] MEDS: LORazepam 1 MG tablet PO SCH (12:09)
--- NOTE | 2023-04-12 16:32 | NUR ---
Nursing Progress Note: Chan Problem: Pt admitted on 5150 for DTO from our ER. Pt reported that he constantly has thoughts of killing people. He does not know where he can live. He is homeless, does not eat and not wearing shoes. Pt has history of Schizophrenia; Bipolar; Anxiety; & Antisocial. Interventions: Provided 1:1 assessment, therapeutic communication, active listening, provided clear and simple instructions, medication administration/education/monitoring, behavior monitoring and intervention as needed, positive reinforcement, reality orientation, maintained a safe and supportive environment, and Q15 minute safety checks. Response: Patient received sleeping in his room at change of shift. He awoke and was receptive to scheduled medication prior to breakfast. Pt is noted to be pleasant and social. He participated for breakfast in the group room with peers. Patient was receptive to 1:1 assessment. He does SI/HI, AH or VH. Does not appear to be responding to internal stimuli. Pt endorsed excitement to see his mother today and give her a card that he made her for Mothers Day. Patient presents with a euthymic mood and is calm and cooperative with care. He was observed visiting with his family during visiting hours today, interacting appropriately. Pt was visible on unit today, however, did nap intermittently throughout the shift. He was observed periodically playing board games and watching television in the group room with peers. Pt participated for all meal and snack times in the group room today. Plan: Patient is conserved and awaiting placement.
[2023-04-12] MEDS: acetaminophen 325mg tablet PO PRN (18:55)
[2023-04-12 19:00] VITALS: RESP 18; O2SAT 97
[2023-04-12 20:00] VITALS: BP 112/80; PULSE 82; RESP 16; TEMP 97.7; O2SAT 97
--- NOTE | 2023-04-13 05:15 | NUR ---
Nursing Progress Note: Chan Rachel Problem: Pt admitted on 5150 for DTO from our ER. Pt reported that he constantly has thoughts of killing people. He does not know where he can live. He is homeless, does not eat and not wearing shoes. Pt has history of Schizophrenia, bipolar, anxiety, antisocial. Interventions: 1:1 assessment, therapeutic communication, active listening, provided clear and simple instructions, medication administration/education/monitoring, behavior monitoring and intervention as needed; provided distraction, direction, positive reinforcement, reality orientation, maintained a safe and supportive environment, and Q15 minute safety checks. Response: Patient visible on unit, interacts with select peers. Pt asked for Tylenol for pain. I stubbed my little toe on my left foot, 4/. Pt is medication compliant tonight. Using headphones on and off, watching movie in day room. Pt denies SI/HI/AVH/depression and anxiety at this time. No delusional statements made. Pt is pleasant and cooperative with staff, will joke around with you. No behavioral problems tonight, monitor for safety. Plan: Pt is conserved and in need of further medication adjustment and monitoring while awaiting placement.
[2023-04-13 07:00] VITALS: RESP 18; O2SAT 95
[2023-04-13] MEDS: magnesium hydroxide 30ml (MOM) UD suspension PO PRN (07:01)
[2023-04-13] MEDS: NICOTINE POLACRILEX 2 MG LOZENGE BC PRN ×4 (07:01→20:46)
[2023-04-13 08:00] VITALS: BP 108/60; PULSE 77; RESP 18; TEMP 97.9; O2SAT 95
--- NOTE | 2023-04-13 08:58 | NUR ---
PLACEMENT UPDATE TAD seeking placement in [facility] facilities. Packet in que at [facility], [facility], [facility], [facility] and [facility]. Client has been declined at [facility] and [place]. [facility] has requested updated notes, labs, and MARs for this client, which were received and sent over. MARIA LUISA Villeda
[2023-04-13] MEDS: clotrimazole topical cream 15gm tube TP SCH ×2 (09:49→20:28)
[2023-04-13] MEDS: quetiapine 100mg tablet PO SCH ×4 (09:50→20:26)
[2023-04-13] MEDS: olanzapine 10mg tablet PO SCH (09:51)
[2023-04-13] MEDS: docusate sod 100mg capsule PO SCH ×2 (09:51→20:26)
[2023-04-13] MEDS: busPIRone 5mg tablet PO SCH ×3 (09:51→16:29)
[2023-04-13] MEDS: multivitamins, therapeutics tablet PO SCH (09:51)
[2023-04-13] MEDS: buprenorphine/naloxone 2-0.5mg sublingual tablet SL SCH ×2 (09:53→16:29)
[2023-04-13] MEDS: LORazepam 0.5 MG tablet PO SCH ×3 (09:53→20:26)
[2023-04-13] MEDS: LORazepam 1 MG tablet PO SCH (12:22)
--- NOTE | 2023-04-13 16:42 | NUR ---
Nursing Progress Note: Chan Problem: Pt admitted on 5150 for DTO from our ER. Pt reported that he constantly has thoughts of killing people. He does not know where he can live. He is homeless, does not eat and not wearing shoes. Pt has history of Schizophrenia; Bipolar; Anxiety; & Antisocial. Interventions: Provided 1:1 assessment, therapeutic communication, active listening, provided clear and simple instructions, medication administration/education/monitoring, behavior monitoring and intervention as needed, positive reinforcement, reality orientation, maintained a safe and supportive environment, and Q15 minute safety checks. Response: Patient received walking around the unit at change of shift this morning. He approached this script writer asking for PRN Milk of Magnesia which was provided per MD order. Pt endorsed LBM yesterday. Bowel sounds active x4, abdomen soft and non-tender. He was noted walking around the unit socializing and drinking coffee until breakfast arrived. Pt was receptive to scheduled medication. He was noted to have one episode of diarrhea on this shift. Patient denies all MH symptoms, does not appear to be responding to IS. He continues to present as pleasant, friendly, and cooperative with care. Pt was visible on unit today, however, did nap intermittently throughout the shift. He was observed napping during group therapy. Pt was observed walking around the unit at times, watching TV in the group room, and socializing with peers. He joined for all meal and snack times in the group room today. Plan: Patient is conserved and awaiting placement.
--- NOTE | 2023-04-13 17:11 | NUR ---
DRIVER LIFTER OF [employer] documentation: I have reviewed all interventions, assessments performed and documented by ZACHARY Anderson.
[2023-04-13 19:14] VITALS: BP 162/90; PULSE 106; RESP 18; TEMP 98.5; O2SAT 98
[2023-04-13] MEDS: quetiapine 100mg tablet PO PRN (19:54)
--- NOTE | 2023-04-14 01:27 | NUR ---
Nursing Progress Note: Problem: Pt admitted on 5150 for DTO from our ER. Pt reported that he constantly has thoughts of killing people. He does not know where he can live. He is homeless, does not eat and not wearing shoes. Pt has history of Schizophrenia; Bipolar; Anxiety; & Antisocial. Interventions: Provided 1:1 assessment, therapeutic communication, active listening, provided clear and simple instructions, medication administration/education/monitoring, behavior monitoring and intervention as needed, positive reinforcement, reality orientation, maintained a safe and supportive environment, and Q15 minute safety checks. Response: Patient is pleasant and cooperative with care; compliant with medication. PRN Quetiapine provided for anxiety and PRN Nicotine lozenges provided. Patient denied SI, HI, A/VH; no apparent delusions expressed. Patient was social with peers and participated in HS snack prior to bed; observed sleeping and does not appear to be having difficulty. Plan: Patient is conserved and awaiting placement.
[2023-04-14 07:00] VITALS: RESP 16; O2SAT 98
[2023-04-14 08:00] VITALS: BP 130/53; PULSE 74; RESP 16; TEMP 98.4; O2SAT 98
[2023-04-14] MEDS: busPIRone 5mg tablet PO SCH ×3 (08:16→16:15)
[2023-04-14] MEDS: quetiapine 100mg tablet PO SCH ×4 (08:16→20:09)
[2023-04-14] MEDS: olanzapine 10mg tablet PO SCH (08:17)
[2023-04-14] MEDS: docusate sod 100mg capsule PO SCH ×2 (08:17→20:08)
[2023-04-14] MEDS: buprenorphine/naloxone 2-0.5mg sublingual tablet SL SCH ×2 (08:17→16:15)
[2023-04-14] MEDS: LORazepam 0.5 MG tablet PO SCH ×3 (08:17→20:08)
[2023-04-14] MEDS: multivitamins, therapeutics tablet PO SCH (08:17)
[2023-04-14] MEDS: clotrimazole topical cream 15gm tube TP SCH ×2 (08:17→20:09)
[2023-04-14] MEDS: NICOTINE POLACRILEX 2 MG LOZENGE BC PRN ×6 (08:34→21:15)
[2023-04-14] MEDS: LORazepam 1 MG tablet PO SCH (12:48)
--- NOTE | 2023-04-14 16:53 | NUR ---
Nursing Progress Note: Chan Problem: Pt admitted on 5150 for DTO from our ER. Pt reported that he constantly has thoughts of killing people. He does not know where he can live. He is homeless, does not eat and not wearing shoes. Pt has history of Schizophrenia; Bipolar; Anxiety; & Antisocial. Interventions: Provided 1:1 assessment, therapeutic communication, active listening, provided clear and simple instructions, medication administration/education/monitoring, behavior monitoring and intervention as needed, positive reinforcement, reality orientation, maintained a safe and supportive environment, and Q15 minute safety checks. Response: Patient received sleeping in his room at shift change with no s/s of distress. He awoke and joined for breakfast in the community room with peers. He continues to present as pleasant, friendly, and social. He was receptive to scheduled medication and 1:1 assessment. Pt denies SI/HI, AH or VH. No delusional statements made. He is observed walking around the unit listening to music through headphones on and off throughout the shift. Pt appears hopeful for the future, noted discussing schooling and job possibilities upon his discharge. He is social and makes jokes with staff periodically. Pt is visible on the unit the majority of the day aside from occasional naps. He declined to participate in group therapy today. He was noted watching television and socializing with peers throughout the day. Pt observed doing pushups in the group room later in the shift. He joined for all meal and snack times today. Plan: Patient is conserved and awaiting placement.
--- NOTE | 2023-04-14 17:46 | NUR ---
PATTERN WHEEL MAKER documentation: I have reviewed all interventions, assessments performed and documented by ZACHARY Anderson.
[2023-04-14 19:00] VITALS: BP 121/56; PULSE 62; RESP 16; TEMP 97.9; O2SAT 98
[2023-04-14] MEDS: quetiapine 100mg tablet PO PRN (21:15)
[2023-04-15] MEDS: NICOTINE POLACRILEX 2 MG LOZENGE BC PRN ×5 (01:01→21:53)
[2023-04-15] MEDS ORDERED: LORazepam 1 MG tablet PO ONE ×2 (02:20→23:50)
--- NOTE | 2023-04-15 02:53 | NUR ---
Nursing Progress Note: Problem: Pt admitted on 5150 for DTO from our ER. Pt reported that he constantly has thoughts of killing people. He does not know where he can live. He is homeless, does not eat and not wearing shoes. Pt has history of Schizophrenia; Bipolar; Anxiety; & Antisocial. Interventions: Provided 1:1 assessment, therapeutic communication, active listening, provided clear and simple instructions, medication administration/education/monitoring, behavior monitoring and intervention as needed, positive reinforcement, reality orientation, maintained a safe and supportive environment, and Q15 minute safety checks. Response: Patient is pleasant and cooperative with care; compliant with medication. PRN Quetiapine provided for sleep, PRN Nicotine lozenges provided and One time order for Ativan 1mg PO provided for difficulty sleeping. Patient denied SI, HI, A/VH; no apparent delusions expressed. He was mostly self isolative this shift. Patient briefly participated in HS snack and social with staff prior to returning to his room. He reported difficulty sleeping; after one time Ativan order he appears to be sleeping without difficulty. Plan: Patient is conserved and awaiting placement.
[2023-04-15 07:00] VITALS: RESP 16; O2SAT 96
[2023-04-15] MEDS: quetiapine 100mg tablet PO SCH ×4 (07:40→20:22)
[2023-04-15] MEDS: docusate sod 100mg capsule PO SCH ×2 (07:41→20:22)
[2023-04-15] MEDS: multivitamins, therapeutics tablet PO SCH (07:41)
[2023-04-15] MEDS: olanzapine 10mg tablet PO SCH (07:41)
[2023-04-15] MEDS: busPIRone 5mg tablet PO SCH ×3 (07:42→17:18)
[2023-04-15] MEDS: LORazepam 0.5 MG tablet PO SCH ×3 (07:42→20:22)
[2023-04-15] MEDS: clotrimazole topical cream 15gm tube TP SCH ×2 (07:43→20:00)
[2023-04-15] MEDS: buprenorphine/naloxone 2-0.5mg sublingual tablet SL SCH ×2 (07:43→17:18)
[2023-04-15 08:00] VITALS: BP 108/48; PULSE 67; RESP 16; TEMP 98.3; O2SAT 96
[2023-04-15] MEDS: buPROPion 75mg tablet PO SCH (09:13)
[2023-04-15] MEDS: LORazepam 1 MG tablet PO SCH (12:54)
--- NOTE | 2023-04-15 16:09 | NUR ---
NURSING PROGRESS NOTE Levon Problem: Pt admitted on 5150 for DTO from our ER. Pt reported that he constantly has thoughts of killing people. He does not know where he can live. He is homeless, does not eat and not wearing shoes. Pt has history of Schizophrenia; Bipolar; Anxiety; & Antisocial. Interventions: One to one to assess mood, therapeutic communication, active listening, provided clear and simple instructions, medication administration/education/monitoring, behavior monitoring and intervention as needed, positive reinforcement, reality orientation, maintained a safe and supportive environment, and Q15 minute safety checks. Response: Received Pt in bed sleeping w/o distress. He woke and was cooperative with vitals and woke for the day. Chan made a lot of requests and asked many questions this morning. He used nicotine lozenges through shift and napped in morning. He ate breakfast well and took AM meds and scheduled meds throughout the day w/o issue. Pt denies SI/HI and AH/VHs at this time. He was polite and cooperative today. He was gracious to an older Pt that took his shoes and then returned them. Plan: Patient is conserved and awaiting placement.
[2023-04-15 19:00] VITALS: BP 138/96; PULSE 106; RESP 18; TEMP 97.6; O2SAT 96
[2023-04-15] MEDS: quetiapine 100mg tablet PO PRN (20:22)
[2023-04-15] MEDS: methyl salicylate/menthol cream 57gm TP PRN (20:25)
[2023-04-15] MEDS: mag hydrox/Alum hydrox/simeth 30ml oral suspension PO PRN (21:55)
--- NOTE | 2023-04-16 03:06 | NUR ---
Nursing Progress Note: Problem: Pt admitted on 5150 for DTO from our ER. Pt reported that he constantly has thoughts of killing people. He does not know where he can live. He is homeless, does not eat and not wearing shoes. Pt has history of Schizophrenia; Bipolar; Anxiety; & Antisocial. Interventions: Provided 1:1 assessment, therapeutic communication, active listening, provided clear and simple instructions, medication administration/education/monitoring, behavior monitoring and intervention as needed, positive reinforcement, reality orientation, maintained a safe and supportive environment, and Q15 minute safety checks. Response: Patient is pleasant and cooperative with care; compliant with medication. PRNs Nicotine lozenges, Quetiapine for anxiety and Maalox for gas relief provided. Patient observed responding to IS this shift. Upon being asked he reported the voices in his head were laughing at him and talking to him about the murder and rape trials against him won't hold up in court. He was social with staff and peers, participated in HS snack and talked on the phone with his mom prior to bed; patient expressed difficulty sleeping and one time order for Ativan 1mg PO provided and patient appears to be sleeping without difficulty at this time. Plan: Patient is conserved and awaiting placement.
[2023-04-16 07:19] VITALS: RESP 17; O2SAT 98
[2023-04-16] MEDS: docusate sod 100mg capsule PO SCH ×2 (07:54→20:54)
[2023-04-16] MEDS: buPROPion 75mg tablet PO SCH (07:55)
[2023-04-16] MEDS: buprenorphine/naloxone 2-0.5mg sublingual tablet SL SCH ×2 (07:55→16:51)
[2023-04-16] MEDS: quetiapine 100mg tablet PO SCH ×4 (07:55→20:54)
[2023-04-16] MEDS: olanzapine 10mg tablet PO SCH (07:55)
[2023-04-16] MEDS: busPIRone 5mg tablet PO SCH ×3 (07:56→16:51)
[2023-04-16] MEDS: multivitamins, therapeutics tablet PO SCH (07:56)
[2023-04-16] MEDS: LORazepam 0.5 MG tablet PO SCH ×3 (07:56→20:54)
[2023-04-16 08:03] VITALS: BP 105/51; PULSE 71; RESP 17; TEMP 98.5; O2SAT 98
[2023-04-16] MEDS: clotrimazole topical cream 15gm tube TP SCH ×2 (08:11→20:00)
[2023-04-16] MEDS: quetiapine 100mg tablet PO PRN ×2 (09:00→20:54)
[2023-04-16] MEDS: NICOTINE POLACRILEX 2 MG LOZENGE BC PRN ×3 (10:46→20:58)
[2023-04-16] MEDS: LORazepam 1 MG tablet PO SCH (12:16)
--- NOTE | 2023-04-16 13:03 | NUR ---
Nursing Progress Note: Problem: Pt admitted on 5150 for DTO from our ER. Pt reported that he constantly has thoughts of killing people. He does not know where he can live. He is homeless, does not eat and not wearing shoes. Pt has history of Schizophrenia; Bipolar; Anxiety; & Antisocial. Interventions: Provided 1:1 assessment, therapeutic communication, active listening, provided clear and simple instructions, medication administration/education/monitoring, behavior monitoring and intervention as needed, positive reinforcement, reality orientation, maintained a safe and supportive environment, and Q15 minute safety checks. Response: Pt paces the unit throughout the day and converses with staff and peers appropriately Pt is cooperative with assessment and compliant with medication. PRNs Nicotine lozenges and Quetiapine for anxiety were utilized. He plays bingo in the community room with peers and eats all of his meals. He appears internally preoccupied at times, but keeps himself busy. Plan: Patient is conserved and awaiting placement.
--- NOTE | 2023-04-16 13:57 | NUR ---
Reassessment: Pt continues eating well, documented with mostly 100% PO intake of meals while receiving double protein TID meeting estimated nutrient needs. Noted pt with a decline in PO intake, down to 50-75% at three most recent meals though still meeting estimated nutrient needs given double protein TID. Per EMR LBM 04/13, receiving routine and PRN bowel care. No further nutrition intervention implemented at this time. Will continue to follow. Recommendations: 1. Continue vegan diet; double entree TIDWM. Return to regular diet per pt/provider discretion 2. Routine and PRN bowel care 3. Weekly scaled wts Addendum: 04/16/23 at [address]inda Muñoz RD Amended: Links added.
[2023-04-16 19:00] VITALS: BP 126/64; PULSE 133; RESP 16; TEMP 98.6; O2SAT 97; O2SAT 98
[2023-04-17] MEDS: quetiapine 100mg tablet PO PRN ×2 (02:06→20:10)
[2023-04-17] MEDS: NICOTINE POLACRILEX 2 MG LOZENGE BC PRN ×4 (02:30→18:42)
[2023-04-17] MEDS ORDERED: LORazepam 1 MG tablet PO ONE (02:35)
--- NOTE | 2023-04-17 03:21 | NUR ---
Nursing Progress Note: Problem: Pt admitted on 5150 for DTO from our ER. Pt reported that he constantly has thoughts of killing people. He does not know where he can live. He is homeless, does not eat and not wearing shoes. Pt has history of Schizophrenia; Bipolar; Anxiety; & Antisocial. Interventions: Provided 1:1 assessment, therapeutic communication, active listening, provided clear and simple instructions, medication administration/education/monitoring, behavior monitoring and intervention as needed, positive reinforcement, reality orientation, maintained a safe and supportive environment, and Q15 minute safety checks. Response: Patient is pleasant and cooperative with care; compliant with medication. PRNs Quetiapine, Ativan and Nicotine lozenges provided. Patient observed responding to IS and mood appears elevated this shift. He was social with peers and participated in HS snack prior to laying down. Patient observed having difficulty sleeping; second PRN Quetiapine was provided with little to no effect. Patient was guarded and provided short responses when questioned about how he was feeling. CANDELARIO Rodriguez notified and one time order for Ativan 1mg PO provided. Patient is laying quietly in bed at this time. Plan: Patient is conserved and awaiting placement.
[2023-04-17 08:00] VITALS: BP 103/57; PULSE 83; RESP 16; TEMP 98.4; O2SAT 96
[2023-04-17] MEDS: buprenorphine/naloxone 2-0.5mg sublingual tablet SL SCH ×3 (08:00→17:00)
[2023-04-17] MEDS: buPROPion 75mg tablet PO SCH (08:02)
[2023-04-17] MEDS: multivitamins, therapeutics tablet PO SCH (08:02)
[2023-04-17] MEDS: busPIRone 5mg tablet PO SCH ×3 (08:02→16:45)
[2023-04-17] MEDS: clotrimazole topical cream 15gm tube TP SCH ×2 (08:02→20:00)
[2023-04-17] MEDS: olanzapine 10mg tablet PO SCH (08:02)
[2023-04-17] MEDS: LORazepam 0.5 MG tablet PO SCH ×3 (08:02→20:10)
[2023-04-17] MEDS: docusate sod 100mg capsule PO SCH ×2 (08:02→20:10)
[2023-04-17] MEDS: quetiapine 100mg tablet PO SCH ×4 (08:06→20:10)
--- NOTE | 2023-04-17 11:38 | NUR ---
Sent updated notes to [place] office (04/10-04/16). MARIA LUISA Villeda
[2023-04-17] MEDS: LORazepam 1 MG tablet PO SCH (12:15)
--- NOTE | 2023-04-17 17:11 | NUR ---
Nursing Progress Note: Problem: Pt admitted on 5150 for DTO from our ER. Pt reported that he constantly has thoughts of killing people. He does not know where he can live. He is homeless, does not eat and not wearing shoes. Pt has history of Schizophrenia; Bipolar; Anxiety; & Antisocial. Interventions: Provide medication administration & medication management; Maintained a safe & supportive environment; Clear & simple instructions; Direction & encouragement regarding performance of ADLs; monitored behaviors & maintained clear boundaries; Patient physical assessment & 1:1 patient interview; Therapeutic conversation & active listening; Patient education & monitoring. Response: Received patient at 0630 and he slept in bed until 0745 when his medications were administered. Patient was pleasant when he awakened and took his medications without hesitation. Patient reported he slept poorly and his sleep hours were recorded at 3.75. Patient ate breakfast in the Community Room and returned to bed to take a nap after visiting with peers in the Community Room. Patient was invited to the Group Meeting but returned to bed after participating in snack time at 1100. Patient slept until 1300 and ate lunch. Patient requested Nicotine Lozenges approximately every 2 hours and ambulated in the hallway after lunch. Patient is kind and cooperative and did not express homicidal ideation throughout the daytime. Patient was noted to have a large amount of dry food on his shirt that looked old, disheveled appearance from head to toe, and his room is unorganized with all of his clothing thrown in the chair or on the floor. Patients bed had multiple blankets all over his bed and his room, his bedding has not been changed in a couple of weeks. Spoke with the patient at length about cleaning up his room, keeping it organized and I would wash his laundry and put clean sheets on his bed. The patient stated No, I dont want any of that done. Ill take care of it. Patient stated I dont care about any of this. Informed the patient that when he gets transferred to a facility he will be required to keep his room/items/laundry organized and neat. Patient smiled at this Proof Press Operator. Chan then was observed cleaning up his room and putting his clothes in his basket. Patient refused his Suboxone scheduled at 1700 and did not give a reason why. Plan: Pt. continues to require a safe and supportive environment and is awaiting placement.
[2023-04-17 19:44] VITALS: BP 116/76; PULSE 91; RESP 16; TEMP 97.9; O2SAT 97
[2023-04-17] MEDS: methyl salicylate/menthol cream 57gm TP PRN (20:13)
[2023-04-18] MEDS: quetiapine 100mg tablet PO PRN ×2 (02:01→21:05)
[2023-04-18] MEDS: NICOTINE POLACRILEX 2 MG LOZENGE BC PRN ×8 (02:01→21:05)
--- NOTE | 2023-04-18 03:21 | NUR ---
Nursing Progress Note: Problem: Pt admitted on 5150 for DTO from our ER. Pt reported that he constantly has thoughts of killing people. He does not know where he can live. He is homeless, does not eat and not wearing shoes. Pt has history of Schizophrenia; Bipolar; Anxiety; & Antisocial. Interventions: Provided 1:1 assessment, therapeutic communication, active listening, provided clear and simple instructions, medication administration/education/monitoring, behavior monitoring and intervention as needed, positive reinforcement, reality orientation, maintained a safe and supportive environment, and Q15 minute safety checks. Response: Patient is pleasant and cooperative with care; compliant with medication. PRNs Quetiapine for sleep, [place] and Nicotine lozenges provided. He denied SI, HI, A/VH; appears internally preoccupied. Patient social with peers and participated in HS snack prior to bed; appears to be having some difficulty sleeping again this shift. Second PRN Quetiapine provided. Plan: Patient is conserved and awaiting placement.
[2023-04-18 07:55] VITALS: BP 103/62; PULSE 70; RESP 16; TEMP 97.8; O2SAT 98
[2023-04-18] MEDS: olanzapine 10mg tablet PO SCH (08:18)
[2023-04-18] MEDS: quetiapine 100mg tablet PO SCH ×3 (08:18→20:05)
[2023-04-18] MEDS: buPROPion 75mg tablet PO SCH (08:18)
[2023-04-18] MEDS: clotrimazole topical cream 15gm tube TP SCH ×2 (08:19→20:00)
[2023-04-18] MEDS: busPIRone 5mg tablet PO SCH ×2 (08:19→12:24)
[2023-04-18] MEDS: multivitamins, therapeutics tablet PO SCH (08:19)
[2023-04-18] MEDS: docusate sod 100mg capsule PO SCH ×2 (08:19→20:04)
[2023-04-18] MEDS: LORazepam 0.5 MG tablet PO SCH ×3 (08:19→20:04)
[2023-04-18] MEDS: buprenorphine/naloxone 2-0.5mg sublingual tablet SL SCH ×2 (08:19→17:24)
[2023-04-18] MEDS: LORazepam 1 MG tablet PO SCH (12:24)
--- NOTE | 2023-04-18 12:42 | NUR ---
NURSING PROGRESS NOTE Problem: Pt admitted on 515 for DTO from our ER. Pt reported that he constantly has thoughts of killing people. He does not know where he can live. He is homeless, does not eat and not wearing shoes. Pt has history of Schizophrenia; Bipolar; Anxiety; & Antisocial. Interventions: One to one to assess mood, therapeutic communication, active listening, provided clear and simple instructions, medication administration/education/monitoring, behavior monitoring and intervention as needed, positive reinforcement, reality orientation, maintained a safe and supportive environment, and Q15 minute safety checks. Response: Received patient sleeping at shift change. Pt continues to follow his plan of care. Pt is visible on the unit for most of the shift, taking an hour nap before lunch. Pt denies SI/HI/A/VH. Pt required only PRN nicotine lozenges. Pt made no delusional statements and no behaviors noted. Pt attended morning group and morning break on patio with peers. Pt is at baseline and awaiting placement. Plan: Patient is conserved and awaiting placement. Addendum: 04/18/23 at 1658 by Kassidy Bradshaw RN Dr. Meneses is decreasing pt's Seroquel and Buspar.
[2023-04-18 19:00] VITALS: RESP 14; O2SAT 96
[2023-04-18 20:00] VITALS: BP 140/78; PULSE 89; RESP 14; TEMP 98; O2SAT 96
--- NOTE | 2023-04-19 04:45 | NUR ---
Nursing Progress Note: Problem: Pt admitted on 5150 for DTO from our ER. Pt reported that he constantly has thoughts of killing people. He does not know where he can live. He is homeless, does not eat and not wearing shoes. Pt has history of Schizophrenia; Bipolar; Anxiety; & Antisocial. Interventions: Provided 1:1 assessment, therapeutic communication, active listening, provided clear and simple instructions, medication administration/education/monitoring, behavior monitoring and intervention as needed, positive reinforcement, reality orientation, maintained a safe and supportive environment, and Q15 minute safety checks. Response: Patient is noted out of his room and exhibiting socialization with his peers. The patient is well oriented. He denies S/I, H/I, or any hallucinations. Patient was given additional Seroquel 100 mg as a PRN for his anxiety. Patient also requested Nicotine lozenges X 2. This patient makes good eye contact, his speech within normal limits. Patient presents as linear. The patient was somewhat intrusive this shift. Plan: Patient is conserved and awaiting placement.
[2023-04-19] MEDS: LORazepam 0.5 MG tablet PO SCH ×3 (07:51→20:26)
[2023-04-19] MEDS: busPIRone 5mg tablet PO SCH ×3 (07:52→17:05)
[2023-04-19] MEDS: docusate sod 100mg capsule PO SCH ×2 (07:52→20:26)
[2023-04-19] MEDS: buprenorphine/naloxone 2-0.5mg sublingual tablet SL SCH ×2 (07:54→17:06)
[2023-04-19] MEDS: multivitamins, therapeutics tablet PO SCH (07:54)
[2023-04-19] MEDS: olanzapine 10mg tablet PO SCH (07:54)
[2023-04-19] MEDS: buPROPion 75mg tablet PO SCH (07:54)
[2023-04-19] MEDS: clotrimazole topical cream 15gm tube TP SCH ×2 (07:54→20:32)
[2023-04-19 08:00] VITALS: BP 103/39; PULSE 77; RESP 14; TEMP 98.8; O2SAT 100
[2023-04-19] MEDS: QUEtiapine 25mg tablet PO SCH ×3 (08:00→17:05)
[2023-04-19] MEDS: LORazepam 1 MG tablet PO SCH (12:16)
--- NOTE | 2023-04-19 17:09 | NUR ---
Nursing Progress Note: Problem: Pt admitted on 5150 for DTO from our ER. Pt reported that he constantly has thoughts of killing people. He does not know where he can live. He is homeless, does not eat and not wearing shoes. Pt has history of Schizophrenia; Bipolar; Anxiety; & Antisocial. Interventions: Provide medication administration & medication management; Maintained a safe & supportive environment; Clear & simple instructions; Direction & encouragement regarding performance of ADLs; monitored behaviors & maintained clear boundaries; Patient physical assessment & 1:1 patient interview; Therapeutic conversation & active listening; Patient education & monitoring. Response: Received patient who was sleeping in his bed until he was awoke to administer medications as well as go to the Community Room to eat breakfast. Patient was pleasant and cooperative. Patient went to the TV Room after breakfast and started speaking to two peers currently here on this unit when he began making homicidal ideation statements recounting How I killed somebody and I would do it again. Patient was redirected immediately and offered a prn Seroquel in which he refused. Patient rested in bed for approximately hour then participated in snack time at 1100. Patient requested to use the clippers and cut his hair this morning. Patient received a haircut from this lead technical writer buy using the clippers to evenly cut his hair and patient reported he appreciated and really liked his haircut and felt better. Patient participated in pizza at 1500 and stayed up during the daytime in an attempt to get better sleep at night. Plan: Pt. continues to require a safe and supportive environment and is awaiting placement.
[2023-04-19] MEDS: NICOTINE POLACRILEX 2 MG LOZENGE BC PRN (19:13)
[2023-04-19 20:21] VITALS: BP 111/54; PULSE 83; RESP 16; TEMP 98; O2SAT 97
[2023-04-19] MEDS: quetiapine 100mg tablet PO SCH (20:26)
--- NOTE | 2023-04-20 00:08 | NUR ---
Nursing Progress Note: Chan Problem: Pt admitted on 5150 for DTO from our ER. Pt reported that he constantly has thoughts of killing people. He does not know where he can live. He is homeless, does not eat and not wearing shoes. Pt has history of Schizophrenia; Bipolar; Anxiety; & Antisocial. Interventions: Provide medication administration & medication management; Maintained a safe & supportive environment; Clear & simple instructions; Direction & encouragement regarding performance of ADLs; monitored behaviors & maintained clear boundaries; Patient physical assessment & 1:1 patient interview; Therapeutic conversation & active listening; Patient education & monitoring. Response: Patient is pleasant and cooperative with care; compliant with medication. PRN Nicotine lozenges provided. He denied SI, HI, A/VH; appears internally preoccupied. Patient social with peers and participated in HS snack prior to bed. Plan: Pt. continues to require a safe and supportive environment and is awaiting placement.
[2023-04-20] MEDS: quetiapine 100mg tablet PO PRN ×2 (01:30→23:20)
[2023-04-20] MEDS: NICOTINE POLACRILEX 2 MG LOZENGE BC PRN ×8 (01:30→23:20)
[2023-04-20] MEDS: olanzapine 10mg tablet PO SCH (07:20)
[2023-04-20] MEDS: multivitamins, therapeutics tablet PO SCH (07:20)
[2023-04-20] MEDS: clotrimazole topical cream 15gm tube TP SCH ×2 (07:21→20:00)
[2023-04-20] MEDS: LORazepam 0.5 MG tablet PO SCH ×3 (07:21→20:45)
[2023-04-20] MEDS: QUEtiapine 25mg tablet PO SCH ×3 (07:21→16:04)
[2023-04-20] MEDS: busPIRone 5mg tablet PO SCH ×3 (07:21→16:04)
[2023-04-20] MEDS: buprenorphine/naloxone 2-0.5mg sublingual tablet SL SCH ×2 (07:21→16:04)
[2023-04-20] MEDS: docusate sod 100mg capsule PO SCH ×2 (07:21→20:45)
[2023-04-20] MEDS: buPROPion 75mg tablet PO SCH (07:21)
[2023-04-20 08:00] VITALS: BP 119/60; PULSE 73; RESP 18; TEMP 97.1; O2SAT 95
--- NOTE | 2023-04-20 09:45 | NUR ---
PLACEMENT UPDATE TAD seeking placement in IMD facilities. Packet in que at [facility], [facility], [facility], [facility]), [facility], and [facility] Updated notes received and sent to the above facilities. Client has been denied at: [facility] (We are going to decline due to recent attempts to asphyxiate himself with a blanket. It also looks like he prefers to stay up in that area, if possible.); [facility] (packet is being re-presented; previously declined for: He was denied due to an incident on 02/16/23 where the nurses discovered him pulling a blanket around his neck and tightening the ends and having threats of hanging himself, intermittent suicidal, homicidal ideations); [facility]: (Referral reviewed. This client appears to not be engaged in the therapeutic process per the notes "He has no intention of joining in group activities b/c they are boring and he doesn't see how that would help him get discharged." He also has bx wherein he talks about HI/SI. This bx would not fit within our current milieu and may be a trigger to current clients. Referral denied.) [facility]: (This client's bxs would clash with several of our current male population. This referral is declined) MARIA LUISA Villeda
[2023-04-20] MEDS: LORazepam 1 MG tablet PO SCH (12:13)
--- NOTE | 2023-04-20 16:23 | NUR ---
Nursing Progress Note: Problem: Pt admitted on 5150 for DTO from our ER. Pt reported that he constantly has thoughts of killing people. He does not know where he can live. He is homeless, does not eat and not wearing shoes. Pt has history of Schizophrenia; Bipolar; Anxiety; & Antisocial. Interventions: Provide medication administration & medication management; Maintained a safe & supportive environment; Clear & simple instructions; Direction & encouragement regarding performance of ADLs; monitored behaviors & maintained clear boundaries; Patient physical assessment & 1:1 patient interview; Therapeutic conversation & active listening; Patient education & monitoring. Response: Received patient who woke up early at 0630 and went to the TV Room to watch TV with other peers. Patient requested coffee and took his medications as ordered by the Dr. then requested a Nicotine Lozenge. Patient ate breakfast in the Community Room and conversed with multiple peers during this time. Patient did not speak of homicidal ideation during this day, and took intermittent naps in his bed. Patient received no prns during this shift and denied SI/AV/AH. Plan: Pt. continues to require a safe and supportive environment and is awaiting placement. Recent updates received for multiple facility denials to accept patient to their facility for intermediate care secondary to episodes of attempts at self-asphyxiation, suicidal ideation, homicidal ideation, and no participation in Group Meetings to ensure that patient would like to work towards enacting changes in his life.
[2023-04-20 20:00] VITALS: BP 133/67; PULSE 79; RESP 18; TEMP 98; O2SAT 98
[2023-04-20] MEDS: quetiapine 100mg tablet PO SCH (20:45)
--- NOTE | 2023-04-20 22:57 | NUR ---
Nursing Progress Note: Chan Problem: Pt admitted on 5150 for DTO from our ER. Pt reported that he constantly has thoughts of killing people. He does not know where he can live. He is homeless, does not eat and not wearing shoes. Pt has history of Schizophrenia; Bipolar; Anxiety; & Antisocial. Interventions: Provide medication administration & medication management; Maintained a safe & supportive environment; Clear & simple instructions; Direction & encouragement regarding performance of ADLs; monitored behaviors & maintained clear boundaries; Patient physical assessment & 1:1 patient interview; Therapeutic conversation & active listening; Patient education & monitoring. Response: Received patient walking the hallway, calm and cooperative, social with peers. Observed to be in the community room playing cards with peers. Pt requested nicotine lozenge and states I am cool. Pt participated in snacks and took all HS medications. Pt paced the hallway for a while before going to bed. Plan: Pt. continues to require a safe and supportive environment and is awaiting placement. Recent updates received for multiple facility denials to accept patient to their facility for long term care phlebotomist care secondary to episodes of attempts at self-asphyxiation, suicidal ideation, homicidal ideation, and no participation in Group Meetings to ensure that patient would like to work towards enacting changes in his life.
[2023-04-21] MEDS: NICOTINE POLACRILEX 2 MG LOZENGE BC PRN ×4 (03:05→16:07)
--- NOTE | 2023-04-21 05:01 | NUR ---
Pt has been up pacing for the last 3 hours requesting PRN seroquel and nicotine lozenges.
[2023-04-21] MEDS: QUEtiapine 25mg tablet PO SCH ×3 (07:43→16:03)
[2023-04-21] MEDS: olanzapine 10mg tablet PO SCH (07:44)
[2023-04-21] MEDS: buprenorphine/naloxone 2-0.5mg sublingual tablet SL SCH ×2 (07:44→16:03)
[2023-04-21] MEDS: LORazepam 0.5 MG tablet PO SCH ×3 (07:44→20:49)
[2023-04-21] MEDS: buPROPion 75mg tablet PO SCH (07:44)
[2023-04-21] MEDS: multivitamins, therapeutics tablet PO SCH (07:44)
[2023-04-21] MEDS: busPIRone 5mg tablet PO SCH ×3 (07:44→16:03)
[2023-04-21] MEDS: docusate sod 100mg capsule PO SCH ×2 (07:44→20:49)
[2023-04-21] MEDS: clotrimazole topical cream 15gm tube TP SCH ×2 (07:44→20:00)
[2023-04-21 08:00] VITALS: BP 150/77; PULSE 83; RESP 16; TEMP 97.3; O2SAT 96
[2023-04-21] MEDS: LORazepam 1 MG tablet PO SCH (12:24)
--- NOTE | 2023-04-21 17:21 | NUR ---
Nursing Progress Note: Problem: Pt admitted on 5150 for DTO from our ER. Pt reported that he constantly has thoughts of killing people. He does not know where he can live. He is homeless, does not eat and not wearing shoes. Pt has history of Schizophrenia; Bipolar; Anxiety; & Antisocial. Interventions: Provide medication administration & medication management; Maintained a safe & supportive environment; Clear & simple instructions; Direction & encouragement regarding performance of ADLs; monitored behaviors & maintained clear boundaries; Patient physical assessment & 1:1 patient interview; Therapeutic conversation & active listening; Patient education & monitoring. Response: Received patient who was awake at 0615 and in the lion talking with the cash accounting clerk and laughing. Patient is smiling and is having a good time joking with JENN Lemus. Approximately 30 minutes later the patient started to laugh very loudly and appeared hysterical responding to his voices. Patient began talking to himself while ambulating in the hallways. Patient took his medications, which included Ativan, and stopped this behavior at approximately 0900 after eating breakfast and allowing his medication to work. Patient went to bed at 0930 and rested in bed until 11:00. Patient participated in snack time and ate lunch in the Community Room. Patient watched TV and spoke with peers throughout the day. Plan: Pt. continues to require a safe and supportive environment and is awaiting placement. Recent updates received for multiple facility denials to accept patient to their facility for snf care secondary to episodes of attempts at self-asphyxiation, suicidal ideation, homicidal ideation, and no participation in Group Meetings to ensure that patient would like to work towards enacting changes in his life.
--- NOTE | 2023-04-21 17:59 | NUR ---
04/21/2023 1750 - Asphyxiation Attempt Using Towel Patient was located in his room when JENN Jerome was located nearby and overheard a gasping noise and immediately went to the patient's room and found him with a blanket wrapped around his neck and told the patient to immediately remove the blanket from around his neck. JENN Lovett immediately reported the incident to this Pricing Intern and I went to his room to discuss the event with him. Patient reported "I'm tired of here and everybody can get a big F U. When I leave here I am going to go out first thing and get some Fentanyl. I want more medications and at least 4 Suboxone and nobody will give it to me. I don't care if I am here or not." Patient was informed that the reason he is not getting placement to leave here is because of the increased incidence of him trying to asphyxiate himself. Asked the patient if he was trying to kill himself or felt suicidal and he replied "No, I just want to get high." Patient was short of breath and sweating alot and I remained in the room until patient's respirations had decreased. Patient was again counseled on his behavior and highly recommended to him that he learn to have open discussions with his Physician and see if they can work out a medication plan. Patient reports "Dr. Meneses was going to check into increasing my Suboxone to 4, but he never got back to me." Will continue to monitor the patient closely.
[2023-04-21 20:12] VITALS: BP 143/83; PULSE 101; RESP 18; TEMP 98.1; O2SAT 97
[2023-04-21] MEDS: quetiapine 100mg tablet PO SCH (20:49)
--- NOTE | 2023-04-21 23:27 | NUR ---
Nursing Progress Note: Chan Problem: Pt admitted on 5150 for DTO from our ER. Pt reported that he constantly has thoughts of killing people. He does not know where he can live. He is homeless, does not eat and not wearing shoes. Pt has history of Schizophrenia; Bipolar; Anxiety; & Antisocial. Interventions: Provide medication administration & medication management; Maintained a safe & supportive environment; Clear & simple instructions; Direction & encouragement regarding performance of ADLs; monitored behaviors & maintained clear boundaries; Patient physical assessment & 1:1 patient interview; Therapeutic conversation & active listening; Patient education & monitoring. Response: Received patient pacing the hallway at change of shift. He was observed to be talking and conversing with staff and peers until snack time. After snacks pt went to his room and was resting quietly with headphones on. HS medications given with no issue. The pt is currently sleeping with no s/s of distress. Plan: Pt. continues to require a safe and supportive environment and is awaiting placement. 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
[2023-04-22 07:00] VITALS: RESP 16; O2SAT 97
[2023-04-22 07:14] VITALS: BP 118/52; PULSE 71; RESP 16; TEMP 98.1; O2SAT 97
[2023-04-22] MEDS: multivitamins, therapeutics tablet PO SCH (08:49)
[2023-04-22] MEDS: docusate sod 100mg capsule PO SCH ×2 (08:49→20:16)
[2023-04-22] MEDS: QUEtiapine 25mg tablet PO SCH ×3 (08:49→17:21)
[2023-04-22] MEDS: busPIRone 5mg tablet PO SCH ×3 (08:49→17:22)
[2023-04-22] MEDS: buPROPion 75mg tablet PO SCH (08:50)
[2023-04-22] MEDS: LORazepam 0.5 MG tablet PO SCH ×3 (08:50→20:17)
[2023-04-22] MEDS: olanzapine 10mg tablet PO SCH (08:51)
[2023-04-22] MEDS: buprenorphine/naloxone 2-0.5mg sublingual tablet SL SCH ×2 (08:51→17:22)
[2023-04-22] MEDS: clotrimazole topical cream 15gm tube TP SCH ×2 (08:56→20:00)
[2023-04-22] MEDS: NICOTINE POLACRILEX 2 MG LOZENGE BC PRN ×4 (09:26→17:21)
[2023-04-22] MEDS: LORazepam 1 MG tablet PO SCH (12:41)
--- NOTE | 2023-04-22 13:19 | NUR ---
Pt. attended group today. Today we did an art expression called, the Path to Wellness where they had to draw out their path to wellness in picture form with steps they will take to keep them well. Pt. engaged in the group well. He did his drawing and explained it to the group. He socialized with peers sitting at the table with him and seemed to enjoy himself. His demeanor was calm, compliant and pleasant to work with. His mood seemed upbeat with a full range of affect. Brandie Rodriguez, ATOMIC PROCESS ENGINEER
--- NOTE | 2023-04-22 15:46 | NUR ---
NURSING PROGRESS NOTE Levon Problem: Pt admitted on 5150 for DTO from our ER. Pt reported that he constantly has thoughts of killing people. He does not know where he can live. He is homeless, does not eat and not wearing shoes. Pt has history of Schizophrenia; Bipolar; Anxiety; & Antisocial. Interventions: One to one to assess mood, therapeutic communication, active listening, provided clear and simple instructions, medication administration/education/monitoring, behavior monitoring and intervention as needed, positive reinforcement, reality orientation, maintained a safe and supportive environment, and Q15 minute safety checks. Response: Received Pt in bed sleeping w/o distress. He woke and was cooperative with vitals and went back to sleep. Pt tired in AM and slept through breakfast. He used nicotine lozenges throughout this shift and took AM meds and scheduled meds throughout the day w/o issue. Pt denies SI/HI and AH/VHs at this time. He was polite and pleasant, joking at times. He spent time before lunch walking halls and talking with female patient appropriately. Plan: Patient is conserved and awaiting placement in [facility] safe and therapeutic environment.
[2023-04-22 19:00] VITALS: RESP 14; O2SAT 98
[2023-04-22 20:00] VITALS: BP 124/72; PULSE 77; RESP 14; TEMP 97; O2SAT 98
[2023-04-22] MEDS: quetiapine 100mg tablet PO SCH (20:16)
[2023-04-22] MEDS: quetiapine 100mg tablet PO PRN (20:17)
--- NOTE | 2023-04-23 03:53 | NUR ---
NURSING PROGRESS NOTE Problem: Pt admitted on 5150 for DTO from our ER. Pt reported that he constantly has thoughts of killing people. He does not know where he can live. He is homeless, does not eat and not wearing shoes. Pt has history of Schizophrenia; Bipolar; Anxiety; & Antisocial. Interventions: One to one to assess mood, therapeutic communication, active listening, provided clear and simple instructions, medication administration/education/monitoring, behavior monitoring and intervention as needed, positive reinforcement, reality orientation, maintained a safe and supportive environment, and Q15 minute safety checks. Response: Received Pt in community room eating dinner. Pt was cooperative with vitals and was seen socializing in halls and watching TV. He participated in snack time and took HS meds w/o issue. Pt denies SI/HI and AH/VHs at this time. Chan was in joking mood and smiled in conversations. He went to bed and has remained sleeping. Will continue to monitor. Plan: Patient is conserved and awaiting placement in [facility] safe and therapeutic environment.
[2023-04-23 07:00] VITALS: RESP 16; O2SAT 93
[2023-04-23 07:18] VITALS: BP 111/66; PULSE 85; RESP 16; TEMP 98; O2SAT 98
[2023-04-23] MEDS: buPROPion 75mg tablet PO SCH ×2 (07:29→12:17)
[2023-04-23] MEDS: LORazepam 0.5 MG tablet PO SCH ×3 (07:29→19:50)
[2023-04-23] MEDS: olanzapine 10mg tablet PO SCH (07:29)
[2023-04-23] MEDS: QUEtiapine 25mg tablet PO SCH ×3 (07:30→16:03)
[2023-04-23] MEDS: docusate sod 100mg capsule PO SCH ×2 (07:30→19:50)
[2023-04-23] MEDS: NICOTINE POLACRILEX 2 MG LOZENGE BC PRN ×5 (07:30→21:16)
[2023-04-23] MEDS: multivitamins, therapeutics tablet PO SCH (07:30)
[2023-04-23] MEDS: buprenorphine/naloxone 2-0.5mg sublingual tablet SL SCH ×2 (07:30→16:09)
[2023-04-23] MEDS: busPIRone 5mg tablet PO SCH ×3 (07:30→16:03)
[2023-04-23] MEDS: clotrimazole topical cream 15gm tube TP SCH ×2 (08:00→19:50)
[2023-04-23] MEDS: LORazepam 1 MG tablet PO SCH (12:16)
--- NOTE | 2023-04-23 17:12 | NUR ---
NURSING PROGRESS NOTE Problem: Pt admitted on 5150 for DTO from our ER. Pt reported that he constantly has thoughts of killing people. He does not know where he can live. He is homeless, does not eat and not wearing shoes. Pt has history of Schizophrenia; Bipolar; Anxiety; & Antisocial. Interventions: One to one to assess mood, therapeutic communication, active listening, provided clear and simple instructions, medication administration/education/monitoring, behavior monitoring and intervention as needed, positive reinforcement, reality orientation, maintained a safe and supportive environment, and Q15 minute safety checks. Response: Received pt asleep at change of shift, pt awoke at approx. 0700 requesting coffee and a nicotine lozenge. pt attended meals. No group attendance this shift. Pt slept on and off throughout the day. Pt. denies all MH symptoms. Plan: Patient is conserved and awaiting placement in [facility] safe and therapeutic environment.
[2023-04-23 19:00] VITALS: RESP 16; O2SAT 97
[2023-04-23] MEDS: quetiapine 100mg tablet PO SCH (19:51)
[2023-04-23 20:00] VITALS: BP 136/67; PULSE 84; RESP 16; TEMP 98.2; O2SAT 97
--- NOTE | 2023-04-24 02:47 | NUR ---
NURSING PROGRESS NOTE Problem: Pt admitted on 515 for DTO from our ER. Pt reported that he constantly has thoughts of killing people. He does not know where he can live. He is homeless, does not eat and not wearing shoes. Pt has history of Schizophrenia; Bipolar; Anxiety; & Antisocial. Interventions: One to one to assess mood, therapeutic communication, active listening, provided clear and simple instructions, medication administration/education/monitoring, behavior monitoring and intervention as needed, positive reinforcement, reality orientation, maintained a safe and supportive environment, and Q15 minute safety checks. Response: After change of shift pt. came to this engineering writer requesting PRN nicotine lozenge. Pt. often seen wearing the headphones. Pt. spends time between the community room and bedroom. Participated in evening snack and socialized with peers. Pleasant and cooperative. Compliant with night medications. Denies SI/HI. 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 Observed and appears to be sleeping without difficulty. Plan: Patient is conserved and awaiting placement in [facility] safe and therapeutic environment. Addendum: 04/26/23 at 0519 by Kate Cardona RN PARTS CLERK PLANT MAINTENANCE DOCUMENTATION: I have reviewed the PARTS CLERK PLANT MAINTENANCE note. Kate Cardona RN
[2023-04-24 07:00] VITALS: RESP 12; O2SAT 95
[2023-04-24] MEDS: LORazepam 0.5 MG tablet PO SCH ×3 (07:15→20:20)
[2023-04-24] MEDS: buPROPion 75mg tablet PO SCH ×2 (07:15→12:27)
[2023-04-24] MEDS: docusate sod 100mg capsule PO SCH ×2 (07:15→20:20)
[2023-04-24] MEDS: multivitamins, therapeutics tablet PO SCH (07:15)
[2023-04-24] MEDS: QUEtiapine 25mg tablet PO SCH ×3 (07:15→16:47)
[2023-04-24] MEDS: buprenorphine/naloxone 2-0.5mg sublingual tablet SL SCH ×2 (07:15→16:47)
[2023-04-24] MEDS: busPIRone 5mg tablet PO SCH ×3 (07:15→16:47)
[2023-04-24] MEDS: olanzapine 10mg tablet PO SCH (07:15)
[2023-04-24] MEDS: NICOTINE POLACRILEX 2 MG LOZENGE BC PRN ×5 (07:16→19:10)
[2023-04-24 07:32] VITALS: BP 131/76; PULSE 90; RESP 12; TEMP 98.2; O2SAT 95
[2023-04-24] MEDS: clotrimazole topical cream 15gm tube TP SCH ×2 (08:00→20:28)
[2023-04-24] MEDS: LORazepam 1 MG tablet PO SCH (12:28)
--- NOTE | 2023-04-24 16:01 | NUR ---
NURSING PROGRESS NOTE Problem: Pt admitted on 5150 for DTO from our ER. Pt reported that he constantly has thoughts of killing people. He does not know where he can live. He is homeless, does not eat and not wearing shoes. Pt has history of Schizophrenia; Bipolar; Anxiety; & Antisocial. Interventions: One to one to assess mood, therapeutic communication, active listening, provided clear and simple instructions, medication administration/education/monitoring, behavior monitoring and intervention as needed, positive reinforcement, reality orientation, maintained a safe and supportive environment, and Q15 minute safety checks. Response: Received pt asleep at change of shift, pt awoke at approx. 0630 requesting a nicotine lozenge. Pt attended meals. No patio or bingo attendance this shift. Pt slept on and off throughout the day. Pt. denies all MH symptoms. Plan: Patient is conserved and awaiting placement in [facility] safe and therapeutic environment.
[2023-04-24] MEDS: methyl salicylate/menthol cream 57gm TP PRN (16:50)
[2023-04-24 19:00] VITALS: RESP 18; O2SAT 96
[2023-04-24 20:00] VITALS: BP 142/86; PULSE 86; RESP 18; TEMP 98.2; O2SAT 96
[2023-04-24] MEDS: quetiapine 100mg tablet PO SCH (20:20)
--- NOTE | 2023-04-25 01:42 | NUR ---
NURSING PROGRESS NOTE Problem: Pt admitted on 5149 for DTO from our ER. Pt reported that he constantly has thoughts of killing people. He does not know where he can live. He is homeless, does not eat and not wearing shoes. Pt has history of Schizophrenia; Bipolar; Anxiety; & Antisocial. Interventions: One to one to assess mood, therapeutic communication, active listening, provided clear and simple instructions, medication administration/education/monitoring, behavior monitoring and intervention as needed, positive reinforcement, reality orientation, maintained a safe and supportive environment, and Q15 minute safety checks. Response: Received pt. walking and socializing with a female peer at change of shift. Pt. requested nicotine lozenge and walked into the community room. Pt. was overheard making a statement about running for president. Denies SI/HI. Reports AH but states "I'm ignoring them by wearing the headphones". Participated in evening snack. Compliant with medications. Socialized with room mate before going to sleep. Observed and appears sleeping without difficulty. Plan: Patient is conserved and awaiting placement in [facility] safe and therapeutic environment. Addendum: 04/25/23 at 0439 by Jennifer Felder LVN pt. up pacing the unit and making delusional statements about the FBI, [employer], richmond crystalizer operator and rioting. LARRY winter provided for agitation. Addendum: 04/26/23 at 0519 by Kate Cardona RN SOCIAL WORK SUPERVISOR DOCUMENTATION: I have reviewed the SOCIAL WORK SUPERVISOR note. Kate Cardona, DARREL
[2023-04-25] MEDS: NICOTINE POLACRILEX 2 MG LOZENGE BC PRN ×7 (03:33→22:45)
[2023-04-25] MEDS: quetiapine 100mg tablet PO PRN ×2 (04:08→23:07)
[2023-04-25 07:00] VITALS: RESP 12; O2SAT 98
[2023-04-25] MEDS: multivitamins, therapeutics tablet PO SCH (07:43)
[2023-04-25] MEDS: docusate sod 100mg capsule PO SCH ×2 (07:43→20:34)
[2023-04-25] MEDS: buPROPion 75mg tablet PO SCH ×2 (07:43→12:43)
[2023-04-25] MEDS: QUEtiapine 25mg tablet PO SCH ×3 (07:44→16:28)
[2023-04-25] MEDS: busPIRone 5mg tablet PO SCH ×3 (07:44→16:28)
[2023-04-25] MEDS: LORazepam 0.5 MG tablet PO SCH ×3 (07:45→20:34)
[2023-04-25] MEDS: olanzapine 10mg tablet PO SCH (07:45)
[2023-04-25] MEDS: buprenorphine/naloxone 2-0.5mg sublingual tablet SL SCH (07:46)
[2023-04-25] MEDS: clotrimazole topical cream 15gm tube TP SCH ×2 (07:47→20:34)
[2023-04-25 08:00] VITALS: BP 122/71; PULSE 89; RESP 12; TEMP 97.6; O2SAT 98
--- NOTE | 2023-04-25 10:45 | NUR ---
Reassessment: Pt continues eating well, documented with mostly 75-100% PO intake of meals while receiving double protein TID though does occasionally refuse a meal (documented to have refused lunch 04/21 and breakfast 04/22). Overall pt still meeting estimated nutrient needs. Per EMR LBM 04/24, receiving routine and PRN bowel care. No further nutrition intervention implemented at this time. Will continue to follow. Recommendations: 1. Continue vegan diet; double entree TIDWM. Return to regular diet per pt/provider discretion 2. Routine and PRN bowel care 3. Weekly scaled wts Addendum: 04/25/23 at [address] Muñoz RD Amended: Links added.
[2023-04-25] MEDS: LORazepam 1 MG tablet PO SCH (12:42)
--- NOTE | 2023-04-25 17:12 | NUR ---
NURSING PROGRESS NOTE Levon Problem: Pt admitted on 5150 for DTO from our ER. Pt reported that he constantly has thoughts of killing people. He does not know where he can live. He is homeless, does not eat and not wearing shoes. Pt has history of Schizophrenia; Bipolar; Anxiety; & Antisocial. Interventions: One to one to assess mood, therapeutic communication, active listening, provided clear and simple instructions, medication administration/education/monitoring, behavior monitoring and intervention as needed, positive reinforcement, reality orientation, maintained a safe and supportive environment, and Q15 minute safety checks. Response: Received Pt in bed sleeping w/o distress. He woke and was cooperative with vitals and woke for the day. Pt in pleasant mood and talked with staff appropriately. Pt ate meals and snack well. Chan spent a lot of time today with a female Pt talking and doing a puzzle together. He took meds throughout the day w/o issue and used prn nicotine lozenges as well. Pt reacted well to med changes today. Pt denies SI/HI and AH/VHs. Plan: Patient is conserved and awaiting placement in [facility] safe and therapeutic environment.
[2023-04-25 19:00] VITALS: BP 127/67; PULSE 85; RESP 18; TEMP 97.7; O2SAT 97
[2023-04-25] MEDS: quetiapine 100mg tablet PO SCH (20:35)
[2023-04-25] MEDS ORDERED: quetiapine 100mg tablet PO ONE (23:55)
--- NOTE | 2023-04-26 04:33 | NUR ---
NURSING PROGRESS NOTE Levon Problem: Pt admitted on 5150 for DTO from our ER. Pt reported that he constantly has thoughts of killing people. He does not know where he can live. He is homeless, does not eat and not wearing shoes. Pt has history of Schizophrenia; Bipolar; Anxiety; & Antisocial. Interventions: One to one to assess mood, therapeutic communication, active listening, provided clear and simple instructions, medication administration/education/monitoring, behavior monitoring and intervention as needed, positive reinforcement, reality orientation, maintained a safe and supportive environment, and Q15 minute safety checks. Response: Received pt. pacing the halls wearing headphones at change of shift. Pt. came to this junior copywriter to request PRN nicotine lozenge. Pt. pleasant and cooperative with medications. Denies SI/HI. Pt. states he always hears voices . Participated in evening snack. Pt. awoke in the night at 2245 requesting PRN nicotine lozenge. He remained awake pacing the lion and bedroom. Pt. was then provided PRN seroquel 100mg and returned to his room. An additional order for seroquel 100mg one time order was obtained and provided to pt. Pt. noted sleeping as of 129. Plan: Patient is conserved and awaiting placement in [facility] safe and therapeutic environment. Addendum: 04/26/23 at 0518 by Kate Cardona RN BREAKER OILER DOCUMENTATION: I have reviewed the BREAKER OILER note. Kate Cardona RN
[2023-04-26 07:26] VITALS: BP 135/84; PULSE 109; RESP 18; TEMP 98.4; O2SAT 97
[2023-04-26] MEDS: clotrimazole topical cream 15gm tube TP SCH ×2 (08:00→20:26)
[2023-04-26] MEDS: olanzapine 10mg tablet PO SCH (08:21)
[2023-04-26] MEDS: busPIRone 5mg tablet PO SCH ×3 (08:21→17:24)
[2023-04-26] MEDS: buPROPion 75mg tablet PO SCH ×2 (08:22→12:24)
[2023-04-26] MEDS: LORazepam 0.5 MG tablet PO SCH ×3 (08:22→20:26)
[2023-04-26] MEDS: QUEtiapine 25mg tablet PO SCH ×3 (08:22→17:25)
[2023-04-26] MEDS: docusate sod 100mg capsule PO SCH ×2 (08:23→20:26)
[2023-04-26] MEDS: multivitamins, therapeutics tablet PO SCH (08:23)
[2023-04-26] MEDS: NICOTINE POLACRILEX 2 MG LOZENGE BC PRN ×3 (12:12→20:26)
[2023-04-26] MEDS: buprenorphine/naloxone 2-0.5mg sublingual tablet SL SCH (12:25)
[2023-04-26] MEDS: LORazepam 1 MG tablet PO SCH (12:26)
--- NOTE | 2023-04-26 14:43 | NUR ---
Problem: Pt admitted on 5150 for DTO from our ER. Pt reported that he constantly has thoughts of killing people. He does not know where he can live. He is homeless, does not eat and not wearing shoes. Pt has history of Schizophrenia; Bipolar; Anxiety; & Antisocial. Interventions: One to one to assess mood, therapeutic communication, active listening, provided clear and simple instructions, medication administration/education/monitoring, behavior monitoring and intervention as needed, positive reinforcement, reality orientation, maintained a safe and supportive environment, and Q15 minute safety checks. Response: Patient in bed when I arrived on shift. Patient dressed himself and came to ask for coffee and PRN nicotine lozenges before 0700. PRN given. Patient had breakfast then paced in hallway while wearing headphones. Patient begin laughing and talking to himself during afternoon medication. Patient yelled dont worry Im just laughing at the voices! Pt. pleasant and cooperative with medications. Denies SI/HI. Ate all meals with other peers and was appropriate towards staff. Slept 3 hours this afternoon. Currently in room sitting up at bedside. Plan: Patient is conserved and awaiting placement in [facility] safe and therapeutic environment.
--- NOTE | 2023-04-26 17:52 | NUR ---
Nurses note added after note was complete : Leslie around 530 pm staff walked in room and patient threw towel on ground. Staff asked patient what he was doing and he replied " trying to hear voices" patient and roommate were asked to keep door open. When staff left room patient closed door again. Patient asked staff to lower their voices and staff was not raising voice in any way. After Charge nurse spoke to patient patient started pacing around hallway glaring at staff. notified. .
[2023-04-26 19:00] VITALS: RESP 20; O2SAT 97
[2023-04-26 19:57] VITALS: BP 125/77; PULSE 90; RESP 20; TEMP 98.8; O2SAT 97
[2023-04-26] MEDS: quetiapine 100mg tablet PO SCH (20:26)
--- NOTE | 2023-04-27 02:16 | NUR ---
NURSING PROGRESS NOTE Levon Problem: Pt admitted on 5150 for DTO from our ER. Pt reported that he constantly has thoughts of killing people. He does not know where he can live. He is homeless, does not eat and not wearing shoes. Pt has history of Schizophrenia; Bipolar; Anxiety; & Antisocial. Interventions: One to one to assess mood, therapeutic communication, active listening, provided clear and simple instructions, medication administration/education/monitoring, behavior monitoring and intervention as needed, positive reinforcement, reality orientation, maintained a safe and supportive environment, and Q15 minute safety checks. Response: Received pt. standing in the lion at change of shift. Pt. sat in the community room socializing and watching TV. Participated in evening snack. Pt. is pleasant and cooperative. Complaint with medications. Pt. denies SI/HI/VH. Pt. continues to hear AH and wears the headphones for distraction. Observed and appears to be sleeping without difficulty. Plan: Patient is conserved and awaiting placement in [facility] safe and therapeutic environment.
[2023-04-27] MEDS: NICOTINE POLACRILEX 2 MG LOZENGE BC PRN ×5 (04:44→20:21)
[2023-04-27] MEDS: multivitamins, therapeutics tablet PO SCH (06:57)
[2023-04-27] MEDS: buPROPion 75mg tablet PO SCH ×2 (06:57→12:03)
[2023-04-27] MEDS: LORazepam 0.5 MG tablet PO SCH ×3 (06:57→20:22)
[2023-04-27] MEDS: QUEtiapine 25mg tablet PO SCH ×3 (06:58→17:39)
[2023-04-27] MEDS: olanzapine 10mg tablet PO SCH (06:58)
[2023-04-27] MEDS: busPIRone 5mg tablet PO SCH ×3 (06:59→17:39)
[2023-04-27] MEDS: docusate sod 100mg capsule PO SCH ×2 (06:59→07:06)
[2023-04-27] MEDS: clotrimazole topical cream 15gm tube TP SCH ×2 (07:02→20:22)
[2023-04-27 07:55] VITALS: BP 122/66; PULSE 80; RESP 16; TEMP 97.8; O2SAT 97
[2023-04-27] MEDS: LORazepam 1 MG tablet PO SCH (11:56)
[2023-04-27] MEDS: magnesium hydroxide 30ml (MOM) UD suspension PO PRN (11:56)
[2023-04-27] MEDS: buprenorphine/naloxone 2-0.5mg sublingual tablet SL SCH (12:03)
[2023-04-27] MEDS ORDERED: magnesium citrate 296ml oral solution PO ONE (15:20)
--- NOTE | 2023-04-27 17:48 | NUR ---
NURSING PROGRESS NOTE Problem: Pt admitted on 5150 for DTO from our ER. Pt reported that he constantly has thoughts of killing people. He does not know where he can live. He is homeless, does not eat and not wearing shoes. Pt has history of Schizophrenia; Bipolar; Anxiety; & Antisocial. Interventions: One to one to assess mood, therapeutic communication, active listening, provided clear and simple instructions, medication administration/education/monitoring, behavior monitoring and intervention as needed, positive reinforcement, reality orientation, maintained a safe and supportive environment, and Q15 minute safety checks. Response: Pt was awake ambulating the lion at shift change. Pt continues to be compliant with care and medication. Pt is visible on the unit, social with peers when approached. Pt spend most of his day in his room or pacing unit listening to headphones. Pt requested MOM for constipation even after he told racebook writer he had a bowel movement yesterday ya its all good. Pt then came back and said I really need something to shit. Its just hard pellets. No c/o pain with palpation, abd supple, hypoactive bowel sounds. Received order for Mag Citrate from Dr. West and as of this writing was effective. Pts Suboxone is being titrated down, Senokot was also ordered and Colace discontinued. Pt was encouraged to stay positive about his placement. Plan: Patient is conserved and awaiting placement in [facility] safe and therapeutic environment.
[2023-04-27 19:11] VITALS: BP 132/78; PULSE 98; RESP 18; TEMP 97.9; O2SAT 97
[2023-04-27] MEDS: Melatonin 3mg tablet PO SCH (20:21)
[2023-04-27] MEDS: sennosides/docusate sodium tablet PO SCH (20:21)
[2023-04-27] MEDS: quetiapine 100mg tablet PO SCH (20:22)
--- NOTE | 2023-04-27 23:04 | NUR ---
NURSING PROGRESS NOTE Problem: Pt admitted on 5150 for DTO from our ER. Pt reported that he constantly has thoughts of killing people. He does not know where he can live. He is homeless, does not eat and not wearing shoes. Pt has history of Schizophrenia; Bipolar; Anxiety; & Antisocial. Interventions: One to one with the patient to assess severity of thought disorder, mood and for agitation. The patient observed up in the milieu and he is on q 15 minute safety checks. Physical assessment completed. PRN for nicotine withdrawal given twice. Assessed for medication side effects. Response: The patient was polite and cooperative when approached for the evening assessment. He stated that his mood was "alright" He denied having thoughts to harm himself or others. He presents as calm and has not had any agitation or behaviors that have required redirection from staff. He was medication compliant and when asked about side effects he stated that he was having small hard stools(Stool softener was added to his med regime) He did state that he continues to hear voices throughout the day consistently but denies that they are command in nature. He was dressed appropriately but reported he has not showered in several days. Plan: Continue care plan and treatment until a suitable placement can be obtained for continued nursing home treatment.
[2023-04-28] MEDS: NICOTINE POLACRILEX 2 MG LOZENGE BC PRN ×4 (00:09→22:36)
[2023-04-28] MEDS: quetiapine 100mg tablet PO PRN ×3 (01:11→23:30)
[2023-04-28] MEDS: buPROPion 75mg tablet PO SCH ×2 (07:37→12:49)
[2023-04-28] MEDS: QUEtiapine 25mg tablet PO SCH ×3 (07:37→16:50)
[2023-04-28] MEDS: sennosides/docusate sodium tablet PO SCH ×2 (07:37→20:24)
[2023-04-28] MEDS: LORazepam 0.5 MG tablet PO SCH ×3 (07:37→20:25)
[2023-04-28] MEDS: busPIRone 5mg tablet PO SCH ×3 (07:37→16:51)
[2023-04-28] MEDS: olanzapine 10mg tablet PO SCH (07:37)
[2023-04-28] MEDS: multivitamins, therapeutics tablet PO SCH (07:38)
[2023-04-28 08:00] VITALS: BP 126/85; PULSE 80; RESP 20; TEMP 96.8; O2SAT 100
[2023-04-28] MEDS ORDERED: LORazepam 1 MG tablet PO ONE (08:15)
[2023-04-28] MEDS: clotrimazole topical cream 15gm tube TP SCH ×2 (08:25→20:25)
--- NOTE | 2023-04-28 08:32 | NUR ---
ISOLATION ROOM: Patient was observed getting increasingly agitated while sitting in the group room with peers. Pt endorsing accusatory statements about multiple staff members. He was noted pointing at a tech in the group room and stating that she called him a piece of shit this morning. Pt also stating that another nurse from this unit had called him a piece of shit and told him to go kill himself last week. This tech writer attempted de-escalation techniques, however, pt began walking through the unit stating that he is going to start socking people in the face to shut them up. He then proceeded to direct himself toward tech on the unit and said he was going to beat her ass also. Security contacted and patient was escorted to the observation room. He was given PRN Seroquel PO and one-time dose of PRN Ativan 1mg PO per MD order. Patient informed that he cannot threaten staff on the unit. Patient responded by saying, it was not a threat, it was a promise. He continues being monitored in isolation at this time. Will continue to monitor per protocol.
[2023-04-28 11:22] LABS: HIV ANTIBODY 1&2 RAPID NON-REACTIVE (Neg)
[2023-04-28] MEDS: LORazepam 1 MG tablet PO SCH (12:51)
[2023-04-28] MEDS ORDERED: buprenorphine/naloxone 2-0.5mg sublingual tablet SL SCH (13:00)
--- NOTE | 2023-04-28 17:13 | NUR ---
NURSING PROGRESS NOTE Problem: Pt admitted on 5150 for DTO from our ER. Pt reported that he constantly has thoughts of killing people. He does not know where he can live. He is homeless, does not eat and not wearing shoes. Pt has history of Schizophrenia; Bipolar; Anxiety; & Antisocial. Interventions: One to one to assess mood, therapeutic communication, active listening, provided clear and simple instructions, medication administration/education/monitoring, behavior monitoring and intervention as needed, positive reinforcement, reality orientation, maintained a safe and supportive environment, and Q15 minute safety checks. Response: Pt was awake and pacing the lion this morning at change of shift. Complaint with all medications. He ate breakfast in the group room with other patients and while having a conversation with peers he became agitated and began making accusatory statements towards other peers and staff members. Pt was given prn Seroquel and Ativan per MD order and placed in the unlocked observation room to give him an opportunity to calm down. Pt took the opportunity to rest and has spent the remaining part of the shift lying in bed with eyes closed. Awaking for meals and medications without incident. When asked how he is feeling patient does not respond and simply lays back down and covers himself with a blanket. Patient has been advised that he can leave the unlocked observation room whenever he is ready but still chooses to sleep. Plan: Patient is conserved and awaiting placement in [facility] safe and therapeutic environment.
--- NOTE | 2023-04-28 17:55 | NUR ---
MACHINIST BENCH documentation: I have reviewed all interventions, assessments performed and documented by ZACHARY Buck.
--- NOTE | 2023-04-28 18:19 | NUR ---
At approx 1805 patient finally left the unlocked observation room. Stated he felt better. Patient now interacting with other patients in the group room. No behaviors noted at this time.
[2023-04-28 18:56] VITALS: RESP 20; O2SAT 100
[2023-04-28 19:17] VITALS: BP 134/61; PULSE 82; RESP 18; TEMP 97.9; O2SAT 96
[2023-04-28] MEDS: quetiapine 100mg tablet PO SCH (20:24)
[2023-04-28] MEDS: Melatonin 3mg tablet PO SCH (20:24)
--- NOTE | 2023-04-28 21:44 | NUR ---
NURSING PROGRESS NOTE Problem: Pt admitted on 5150 for DTO from our ER. Pt reported that he constantly has thoughts of killing people. He does not know where he can live. He is homeless, does not eat and not wearing shoes. Pt has history of Schizophrenia; Bipolar; Anxiety; & Antisocial. Interventions: One to one to assess mood, therapeutic communication, active listening, provided clear and simple instructions, medication administration/education/monitoring, behavior monitoring and intervention as needed, positive reinforcement, reality orientation, maintained a safe and supportive environment, and Q15 minute safety checks. Response: Pt was in his room at change of shift laying down. Pt was asked about his day and is guarded stating "Im good, I'm fine." Pt seemed to continue to be agitated and later reported to PCT that he was upset with day staff and that he thought they were talking about him and stated "I almost went off today." Pt is calm and cooperative with staff this evening. Pt is interacting appropriately with peers and friendly to his roommate. Pt seemed somewhat withdrawn at times throughout the night but reports having no needs. Pt took HS meds after having a snack and went to bed. Plan: Patient is conserved and awaiting placement in [facility] safe and therapeutic environment.
[2023-04-28] MEDS ORDERED: traZODone 50mg tablet PO ONE (23:55)
[2023-04-29] MEDS ORDERED: traZODone 50mg tablet PO ONE (00:45)
[2023-04-29] MEDS: buPROPion 75mg tablet PO SCH ×2 (07:16→13:10)
[2023-04-29] MEDS: olanzapine 10mg tablet PO SCH (07:16)
[2023-04-29] MEDS: sennosides/docusate sodium tablet PO SCH ×2 (07:16→20:30)
[2023-04-29] MEDS: busPIRone 5mg tablet PO SCH ×3 (07:16→16:11)
[2023-04-29] MEDS: QUEtiapine 25mg tablet PO SCH ×3 (07:16→16:11)
[2023-04-29 07:19] VITALS: BP 118/76; PULSE 92; RESP 12; TEMP 98.3; O2SAT 97
[2023-04-29] MEDS: LORazepam 0.5 MG tablet PO SCH ×3 (07:22→20:30)
[2023-04-29] MEDS: multivitamins, therapeutics tablet PO SCH (07:23)
[2023-04-29] MEDS: clotrimazole topical cream 15gm tube TP SCH ×2 (07:23→20:31)
[2023-04-29] MEDS: NICOTINE POLACRILEX 2 MG LOZENGE BC PRN ×7 (08:32→22:55)
[2023-04-29] MEDS: buprenorphine/naloxone 2-0.5mg sublingual tablet SL SCH (13:10)
[2023-04-29] MEDS: LORazepam 1 MG tablet PO SCH (13:10)
--- NOTE | 2023-04-29 15:08 | NUR ---
NURSING PROGRESS NOTE Problem: Pt admitted on 5150 for DTO from our ER. Pt reported that he constantly has thoughts of killing people. He does not know where he can live. He is homeless, does not eat and not wearing shoes. Pt has history of Schizophrenia; Bipolar; Anxiety; & Antisocial. Interventions: One to one to assess mood, therapeutic communication, active listening, provided clear and simple instructions, medication administration/education/monitoring, behavior monitoring and intervention as needed, positive reinforcement, reality orientation, maintained a safe and supportive environment, and Q15 minute safety checks. Response: Pt cooperative with medications and assessments. Pt requests nicotine lozenges prn. Pt spends time pacing in the halls and interacting with his fellow pts. PT is easily redirectable. Pt does his ADLs independently. Pt is pleasant and cooperative. Plan: Patient is conserved and awaiting placement in [facility] safe and therapeutic environment.
[2023-04-29 19:00] VITALS: BP 121/73; PULSE 89; RESP 14; TEMP 97.6; O2SAT 97
[2023-04-29] MEDS: Melatonin 3mg tablet PO SCH (20:30)
[2023-04-29] MEDS: quetiapine 100mg tablet PO SCH (20:30)
[2023-04-29] MEDS ORDERED: traZODone 50mg tablet PO SCH (21:00)
[2023-04-29] MEDS: quetiapine 100mg tablet PO PRN (22:55)
[2023-04-30] MEDS ORDERED: temazepam 15mg capsule PO ONE (01:00)
[2023-04-30] MEDS ORDERED: traZODone 50mg tablet PO ONE (01:05)
[2023-04-30] MEDS: NICOTINE POLACRILEX 2 MG LOZENGE BC PRN ×3 (04:47→15:43)
--- NOTE | 2023-04-30 05:20 | NUR ---
NURSING PROGRESS NOTE Problem: Pt admitted on 5150 for DTO from our ER. Pt reported that he constantly has thoughts of killing people. He does not know where he can live. He is homeless, does not eat and not wearing shoes. Pt has history of Schizophrenia; Bipolar; Anxiety; & Antisocial. Interventions: One to one to assess mood, therapeutic communication, active listening, provided clear and simple instructions, medication administration/education/monitoring, behavior monitoring and intervention as needed, positive reinforcement, reality orientation, maintained a safe and supportive environment, and Q15 minute safety checks. Response: Received pt. in hallway asking for a nicotine lozenge. Pt was informed when the next one is due. Pt using headphones to help with his voices. Pt does endorse AH, stating I can deal with them. Pt is medication compliant and has a new order for Trazodone 100mg at HS. 2255- Pt up asking for more sleep medication. Seroquel 100mg given. 0050- Pt up again stating he cant sleep. called and Trazodone 50mg one time order given. 0245- Pt is up, still unable to sleep. 0455- Pt stated he was never able to fall asleep. Monitor for safety. Plan: Patient is conserved and awaiting placement in [facility] safe and therapeutic environment.
[2023-04-30 07:00] VITALS: RESP 16; O2SAT 95
[2023-04-30] MEDS: buPROPion 75mg tablet PO SCH (08:17)
[2023-04-30] MEDS: LORazepam 0.5 MG tablet PO SCH ×3 (08:17→20:41)
[2023-04-30] MEDS: sennosides/docusate sodium tablet PO SCH ×2 (08:18→20:41)
[2023-04-30] MEDS: busPIRone 5mg tablet PO SCH ×3 (08:18→16:46)
[2023-04-30] MEDS: QUEtiapine 25mg tablet PO SCH ×3 (08:19→16:46)
[2023-04-30] MEDS: olanzapine 10mg tablet PO SCH (08:19)
[2023-04-30] MEDS: multivitamins, therapeutics tablet PO SCH (08:19)
[2023-04-30] MEDS: clotrimazole topical cream 15gm tube TP SCH ×2 (08:19→20:41)
[2023-04-30 08:20] VITALS: BP 131/74; PULSE 96; RESP 16; TEMP 98.7; O2SAT 95
--- NOTE | 2023-04-30 08:59 | NUR ---
Sent updated notes to [facility] office for placement purposes (04/17-04/29). MARIA LUISA Villeda
[2023-04-30] MEDS: LORazepam 1 MG tablet PO SCH (13:10)
[2023-04-30] MEDS: buprenorphine/naloxone 2-0.5mg sublingual tablet SL SCH (13:10)
--- NOTE | 2023-04-30 15:00 | NUR ---
Nursing Progress Note: Problem : Pt admitted on 5150 for DTO from our ER. Pt reported that he constantly has thoughts of killing people. He does not know where he can live. He is homeless, does not eat and not wearing shoes. Pt has history of Schizophrenia; Bipolar; Anxiety; & Antisocial. Interventions : Maintained a safe and supportive environment, ensured contract for safety, provided clear and simple instructions, provided active listening and positive encouragement, and maintained Q 15min safety checks. Response : Received pt. up pacing the unit wearing headphones at the beginning of the shift. He was observed to be laughing aloud to himself quite hysterically at times and at other times dancing. When greeted by this mortgage or loan underwriter, he smiled widely and stated in a guarded manner, "I'm good." Later, in the afternoon pt. was observed to be resting in bed. He remains guarded with conversation and did not make any delusional statements. Pt's thought process appears to be linear and goal oriented and he denies any mental health s/s. Will continue to monitor pt. closely. Plan : Pt. continues to require a safe and supportive environment and is awaiting placement.
[2023-04-30 19:00] VITALS: RESP 15; O2SAT 96
[2023-04-30 20:00] VITALS: BP 107/50; PULSE 70; RESP 15; TEMP 97.8; O2SAT 96
[2023-04-30] MEDS: Melatonin 3mg tablet PO SCH (20:41)
[2023-04-30] MEDS: quetiapine 100mg tablet PO SCH (20:41)
[2023-04-30] MEDS: mirtazapine 15mg tablet PO SCH (20:42)
--- NOTE | 2023-05-01 05:32 | NUR ---
NURSING PROGRESS NOTE Problem: Pt admitted on 5150 for DTO from our ER. Pt reported that he constantly has thoughts of killing people. He does not know where he can live. He is homeless, does not eat and not wearing shoes. Pt has history of Schizophrenia; Bipolar; Anxiety; & Antisocial. Interventions: One to one to assess mood, therapeutic communication, active listening, provided clear and simple instructions, medication administration/education/monitoring, behavior monitoring and intervention as needed, positive reinforcement, reality orientation, maintained a safe and supportive environment, and Q15 minute safety checks. Response: Received pt in his room, sleeping but woke up for vital signs. Pt went back to sleep, he did not sleep last night. Pt was woke up again to take his HS medications. Pt denies having any suicidal or homicidal ideations. Denies any hallucinations. Pt slept all night. Monitor for safety. Plan: Patient is conserved and awaiting placement in [facility] safe and therapeutic environment
[2023-05-01 07:00] VITALS: RESP 16; O2SAT 99
[2023-05-01] MEDS: QUEtiapine 25mg tablet PO SCH ×3 (07:40→16:30)
[2023-05-01] MEDS: busPIRone 5mg tablet PO SCH ×3 (07:40→16:29)
[2023-05-01] MEDS: sennosides/docusate sodium tablet PO SCH ×2 (07:40→21:30)
[2023-05-01] MEDS: LORazepam 0.5 MG tablet PO SCH ×3 (07:40→21:28)
[2023-05-01] MEDS: multivitamins, therapeutics tablet PO SCH (07:40)
[2023-05-01] MEDS: clotrimazole topical cream 15gm tube TP SCH ×2 (07:41→20:00)
[2023-05-01] MEDS: olanzapine 10mg tablet PO SCH (07:41)
[2023-05-01] MEDS: buPROPion 75mg tablet PO SCH (07:46)
[2023-05-01] MEDS: NICOTINE POLACRILEX 2 MG LOZENGE BC PRN ×4 (07:58→18:04)
[2023-05-01 08:00] VITALS: BP 127/68; PULSE 88; RESP 16; TEMP 97.7; O2SAT 99
[2023-05-01] MEDS: LORazepam 1 MG tablet PO SCH (12:22)
[2023-05-01] MEDS: buprenorphine/naloxone 2-0.5mg sublingual tablet SL SCH (12:22)
--- NOTE | 2023-05-01 12:58 | NUR ---
PLACEMENT UPDATE Hailee Valencia is looking at [facility]. [facility] office sent updated notes. MARIA LUISA Villeda
--- NOTE | 2023-05-01 15:26 | NUR ---
Nursing Progress Note: Problem : Pt admitted on 5150 for DTO from our ER. Pt reported that he constantly has thoughts of killing people. He does not know where he can live. He is homeless, does not eat and not wearing shoes. Pt has history of Schizophrenia; Bipolar; Anxiety; & Antisocial. Interventions : Maintained a safe and supportive environment, ensured contract for safety, provided clear and simple instructions, provided active listening and positive encouragement, and maintained Q 15min safety checks. Response : Received pt. sleeping in bed at the beginning of the shift, he awoke before breakfast and came to the nurse's station requesting his medications. After breakfast, 1:1 was completed at bedside, pt. presents as animated but not overly so as he had presented the morning before (AEB laughing hysterically and dancing in the hallways). Pt. continues to deny all mental health s/s and states, "I'm good." When questioned regarding sleep, pt. states, "I slept great! The best I have in months!" Pt. did not make any delusional statements. His thought process continues to be be linear and goal oriented. Pt. goes on to talk about receiving his SSI funds and saving up to buy a car and a bike. He also reports he is hoping to be placed out of the area at his next facility so he can "Explore new things." Pt. remained up throughout the shift and was observed to be interacting appropriately with others. He was not noted to be napping as much as he usually does. Pt. questioned this marine underwriter regarding his 1300 dose of Wellbutrin which had been recently discontinued. Per Dr. Whitaker, this medication was stopped due to pt's recent episodes of hyperactivity. This was endorsed to the pt. and he reported understanding. Plan : Pt. continues to require a safe and supportive environment and is awaiting placement.
[2023-05-01 19:00] VITALS: BP 136/68; PULSE 87; RESP 16; TEMP 98; O2SAT 99
[2023-05-01] MEDS: Melatonin 3mg tablet PO SCH (21:29)
[2023-05-01] MEDS: mirtazapine 15mg tablet PO SCH (21:29)
[2023-05-01] MEDS: quetiapine 100mg tablet PO SCH (21:29)
--- NOTE | 2023-05-02 01:30 | NUR ---
Nursing Progress Note: Problem : Pt admitted on 5150 for DTO from our ER. Pt reported that he constantly has thoughts of killing people. He does not know where he can live. He is homeless, does not eat and not wearing shoes. Pt has history of Schizophrenia; Bipolar; Anxiety; & Antisocial. Interventions : Maintained a safe and supportive environment, ensured contract for safety, provided clear and simple instructions, provided active listening and positive encouragement, and maintained Q 15min safety checks. Response : Patient was social and out and about on the unit following shift change. He converses with staff, not so much with other patients. Patient listens to music on headphones. 1:1 Interview in patients room. Patient is well oriented. Patient discusses a recent social security disability award, he plans to buy a car. "That way if I get thrown out of where I live I can live in my car." He denies S/I, H/I, or any hallucinations. Patient tells this writer technical publications that he has been focussed on his exercise routine today. Last BM was two days ago. Patient is polite, he exhibits patience when told that he would get his medications a little later than normal because a couple of other patients are taking priority. Patient was medication compliant. Plan : Pt. continues to require a safe and supportive environment and is awaiting placement.
[2023-05-02] MEDS: NICOTINE POLACRILEX 2 MG LOZENGE BC PRN ×5 (04:40→23:36)
[2023-05-02 07:00] VITALS: RESP 16; O2SAT 100
[2023-05-02] MEDS: QUEtiapine 25mg tablet PO SCH ×3 (07:38→15:45)
[2023-05-02] MEDS: multivitamins, therapeutics tablet PO SCH (07:38)
[2023-05-02] MEDS: LORazepam 0.5 MG tablet PO SCH ×3 (07:38→19:59)
[2023-05-02] MEDS: busPIRone 5mg tablet PO SCH ×3 (07:38→15:45)
[2023-05-02] MEDS: sennosides/docusate sodium tablet PO SCH ×2 (07:38→19:59)
[2023-05-02] MEDS: clotrimazole topical cream 15gm tube TP SCH ×2 (07:39→19:58)
[2023-05-02] MEDS: buPROPion 75mg tablet PO SCH (07:39)
[2023-05-02] MEDS: olanzapine 10mg tablet PO SCH (07:39)
[2023-05-02 08:00] VITALS: BP 146/79; PULSE 90; RESP 16; TEMP 97.7; O2SAT 100
[2023-05-02] MEDS: LORazepam 1 MG tablet PO SCH (12:57)
[2023-05-02] MEDS: buprenorphine/naloxone 2-0.5mg sublingual tablet SL SCH (12:58)
--- NOTE | 2023-05-02 13:33 | NUR ---
Nursing Progress Note: Problem : Pt admitted on 5150 for DTO from our ER. Pt reported that he constantly has thoughts of killing people. He does not know where he can live. He is homeless, does not eat and not wearing shoes. Pt has history of Schizophrenia; Bipolar; Anxiety; & Antisocial. Interventions : Maintained a safe and supportive environment, ensured contract for safety, provided clear and simple instructions, provided active listening and positive encouragement, and maintained Q 15min safety checks. Response : Received pt. sleeping in bed at the beginning of the shift, he awoke early and came to the nurse's station requesting his medications as is his routine. Pt. attended breakfast in the Group Room, and while there began talking about his confucianism beliefs while sitting at table near two other female peers. This upset these female peers who did not have the same confucianism beliefs as this patient and they began verbally attacking him and calling him names. Staff immediately intervened and the situation was quickly diffused. Pt. handled the situation well and calmly stated, "I have my beliefs an you have yours." However, after breakfast, pt. returned to his room where he began throwing up his breakfast in the sink. When assessed by this video game script writer, pt. denied any discomfort and his vital signs are WNL. Pt. was provided a soda to help settle his stomach with effectiveness. Pt. continues to deny all mental health s/s and states in a guarded manner, "I'm okay." Later, pt. refused lunch and remained in bed sleeping. He presents with increased fatigue this shift, however does report he awoke early at approximatly 0300 and could not return back to sleep. Will continue to monitor pt. closely. Plan : Pt. continues to require a safe and supportive environment and is awaiting placement.
[2023-05-02 19:00] VITALS: RESP 18; O2SAT 97
[2023-05-02 19:40] VITALS: BP 141/72; PULSE 95; RESP 18; TEMP 97.2; O2SAT 97
[2023-05-02] MEDS: quetiapine 100mg tablet PO SCH (19:59)
[2023-05-02] MEDS: Melatonin 3mg tablet PO SCH (19:59)
[2023-05-02] MEDS: mirtazapine 15mg tablet PO SCH (19:59)
[2023-05-03] MEDS: NICOTINE POLACRILEX 2 MG LOZENGE BC PRN ×4 (01:29→16:42)
--- NOTE | 2023-05-03 05:26 | NUR ---
Nursing progress note: Chan Problem : Pt admitted on 5150 for DTO from our ER. Pt reported that he constantly has thoughts of killing people. He does not know where he can live. He is homeless, does not eat and not wearing shoes. Pt has history of Schizophrenia; Bipolar; Anxiety; & Antisocial. Interventions : Maintained a safe and supportive environment, ensured contract for safety, provided clear and simple instructions, provided active listening and positive encouragement, and maintained Q 15min safety checks. Response : Received Patient. Patient awake and walking around socializing some with other patients. Often speaks of views on jew. He was irritated at a female patient at one time thinking she was listening in on his conversation and told her to stop listening to his conversation. Patient took meds then went to sleep and woke up twice for a nicotine lozenge. After second lozenge patient paced hallway for quite a while with headphones on and made occasional loud laughing noises in hallway while pacing. Plan : Pt. continues to require a safe and supportive environment and is awaiting placement.
[2023-05-03 07:00] VITALS: RESP 18; O2SAT 96
[2023-05-03] MEDS: LORazepam 0.5 MG tablet PO SCH ×3 (07:39→20:15)
[2023-05-03] MEDS: buPROPion 75mg tablet PO SCH (07:39)
[2023-05-03] MEDS: olanzapine 10mg tablet PO SCH (07:39)
[2023-05-03] MEDS: busPIRone 5mg tablet PO SCH ×3 (07:39→16:42)
[2023-05-03] MEDS: multivitamins, therapeutics tablet PO SCH (07:39)
[2023-05-03] MEDS: QUEtiapine 25mg tablet PO SCH ×3 (07:40→16:42)
[2023-05-03] MEDS: sennosides/docusate sodium tablet PO SCH ×2 (07:40→20:15)
[2023-05-03] MEDS: clotrimazole topical cream 15gm tube TP SCH ×2 (07:42→20:00)
[2023-05-03 08:00] VITALS: BP 135/69; PULSE 63; RESP 18; TEMP 97.4; O2SAT 96
[2023-05-03] MEDS: LORazepam 1 MG tablet PO SCH (12:12)
[2023-05-03] MEDS: buprenorphine/naloxone 2-0.5mg sublingual tablet SL SCH (12:13)
--- NOTE | 2023-05-03 13:52 | NUR ---
Nursing Progress Note: Problem : Pt admitted on 5150 for DTO from our ER. Pt reported that he constantly has thoughts of killing people. He does not know where he can live. He is homeless, does not eat and not wearing shoes. Pt has history of Schizophrenia; Bipolar; Anxiety; & Antisocial. Interventions : Maintained a safe and supportive environment, ensured contract for safety, provided clear and simple instructions, provided active listening and positive encouragement, and maintained Q 15min safety checks. Response : Received pt. sleeping in bed at the beginning of the shift, he again awoke early and was observed to be interacting with a new male peer on the unit; pacing, talking loudly, and laughing in a hysterical manner at intervals requiring some redirection with effectiveness. Pt. again appeared somewhat hyper animated, but appeared to calm down after his medications were administered and he attended breakfast in the Group Room. Pt's mother later visited and this appeared to go well. Pt. approached this mortgage underwriter proudly stating, "Did you see the present I got my sister that my mom was carrying?!" He continued on in an animated manner to talk about how much he loves his little sister and all of the gifts he has gotten for her over the years. Pt. did not make any delusional statements this shift Pt. remained up throughout the morning listening to headphones, playing guitar, and interacting appropriately with others. He did nap in the afternoon. Plan : Pt. continues to require a safe and supportive environment and is awaiting placement.
[2023-05-03 19:00] VITALS: RESP 16; O2SAT 98
[2023-05-03 19:59] VITALS: BP 122/70; PULSE 79; RESP 16; TEMP 98.2; O2SAT 98
[2023-05-03] MEDS: Melatonin 3mg tablet PO SCH (20:15)
[2023-05-03] MEDS: mirtazapine 15mg tablet PO SCH (20:15)
[2023-05-03] MEDS: quetiapine 100mg tablet PO SCH (20:16)
--- NOTE | 2023-05-04 01:35 | NUR ---
Nursing Progress Note: Chan Problem : Pt admitted on 5150 for DTO from our ER. Pt reported that he constantly has thoughts of killing people. He does not know where he can live. He is homeless, does not eat and not wearing shoes. Pt has history of Schizophrenia; Bipolar; Anxiety; & Antisocial. Interventions : Maintained a safe and supportive environment, ensured contract for safety, provided clear and simple instructions, provided active listening and positive encouragement, and maintained Q 15min safety checks. Response : Received pt up pacing with headphones on. He was observed to be in the community room watching TV with peers and talking with staff alike. Pt is pleasant and cooperative, states he is cool and that his voices are cool right now, he does not have any currently. Pt participated in snacks and took all HS medications. Requested chocolate until bedtime. Plan : Pt. continues to require a safe and supportive environment and is awaiting placement.
[2023-05-04] MEDS: NICOTINE POLACRILEX 2 MG LOZENGE BC PRN ×6 (06:15→20:21)
[2023-05-04] MEDS: sennosides/docusate sodium tablet PO SCH ×2 (07:23→20:21)
[2023-05-04] MEDS: QUEtiapine 25mg tablet PO SCH ×3 (07:23→16:08)
[2023-05-04] MEDS: busPIRone 5mg tablet PO SCH ×3 (07:23→16:09)
[2023-05-04] MEDS: olanzapine 10mg tablet PO SCH (07:23)
[2023-05-04] MEDS: buPROPion 75mg tablet PO SCH (07:23)
[2023-05-04] MEDS: multivitamins, therapeutics tablet PO SCH (07:24)
[2023-05-04] MEDS: LORazepam 0.5 MG tablet PO SCH ×3 (07:24→20:21)
[2023-05-04] MEDS: clotrimazole topical cream 15gm tube TP SCH ×2 (07:53→20:00)
[2023-05-04 08:00] VITALS: BP 118/74; PULSE 78; RESP 16; RESP 17; TEMP 98.4; O2SAT 99
--- NOTE | 2023-05-04 08:54 | NUR ---
F/u 05/04: Pt PO declining w/ more refusals past 4 days ~68% avg recent vegan meals w/ snacks meeting protein needs and partially meeting kcal needs. Noted pt appetite influenced by social interactions on one occasional resulting in meal refusals w/ pt vomiting; no GI symptoms at this time. LBM 6/ per EMR. Pt would benefit from return to regular diet once agreeable to better meet needs. Will monitor for further intake trends and nutrition intervention needs this admit. Recommendations: 1. Continue vegan diet; double entree TIDWM. Return to regular diet per pt/provider discretion; encourage PO 2. Routine MVI supplementation given pt stature/vegan diet 3. Routine bowel care 4. Weekly scaled wts Addendum: 05/04/23 at [address] Amended: Links added.
[2023-05-04] MEDS: buprenorphine/naloxone 2-0.5mg sublingual tablet SL SCH (12:19)
[2023-05-04] MEDS: LORazepam 1 MG tablet PO SCH (12:19)
--- NOTE | 2023-05-04 17:16 | NUR ---
Nursing Progress Note: Problem : Pt admitted on 5150 for DTO from our ER. Pt reported that he constantly has thoughts of killing people. He does not know where he can live. He is homeless, does not eat and not wearing shoes. Pt has history of Schizophrenia; Bipolar; Anxiety; & Antisocial. Interventions : Maintained a safe and supportive environment, ensured contract for safety, provided clear and simple instructions, provided active listening and positive encouragement, and maintained Q 15min safety checks. Response : Received report from director of front office, patient is in no acute distress at this time. Was asleep one my first check. Awoken and got dressed for breakfast and joined the community room all meals. Participated with other in activities such as art, stand up, playing guitar. Patient has been pacing up and down the halls alot, along with sleeping. No delusions where heard on shift today. Patients overall presence was calm and collective. Has been tolerating his PO meds well, w/ no s/s of issues. Denies any suicidal thoughts or self harm. Pt states "he finally may have somewhere for placement", while saying with a big smile. Will continue to monitor patients behavior. Pt. remained up throughout the morning listening to headphones, playing guitar, and interacting appropriately with others. He did nap in the afternoon. Plan : Pt. continues to require a safe and supportive environment and is awaiting placement.
--- NOTE | 2023-05-04 17:38 | NUR ---
BURNT LIME DRAWER documentation: I have reviewed all interventions, assessments performed and documented by ZACHARY Escobedo.
[2023-05-04 19:00] VITALS: RESP 18; O2SAT 95
[2023-05-04] MEDS: Melatonin 3mg tablet PO SCH (20:21)
[2023-05-04] MEDS: quetiapine 100mg tablet PO SCH (20:21)
[2023-05-04] MEDS: mirtazapine 15mg tablet PO SCH (20:21)
[2023-05-04 20:37] VITALS: BP 136/73; PULSE 104; RESP 18; TEMP 97; O2SAT 95
--- NOTE | 2023-05-04 23:44 | NUR ---
Nursing Progress Note: Chan Problem : Pt admitted on 5150 for DTO from our ER. Pt reported that he constantly has thoughts of killing people. He does not know where he can live. He is homeless, does not eat and not wearing shoes. Pt has history of Schizophrenia; Bipolar; Anxiety; & Antisocial. Interventions : Maintained a safe and supportive environment, ensured contract for safety, provided clear and simple instructions, provided active listening and positive encouragement, and maintained Q 15min safety checks. Response : Received pt up pacing the unit with headphones. Pt greeted this RN appropriately and asked how this automatic typewriter inspector was doing. Pt states he is cool and that his voices are cool he is able to deal with them. He states he is keeping track of his workout program with his roommate. Participated in refreshments and took all HS medications. Currently sleeping, will continue to monitor. Plan : Pt. continues to require a safe and supportive environment and is awaiting placement.
[2023-05-05] MEDS: NICOTINE POLACRILEX 2 MG LOZENGE BC PRN ×5 (03:28→19:18)
[2023-05-05] MEDS: quetiapine 100mg tablet PO PRN (04:23)
[2023-05-05 07:00] VITALS: RESP 16; O2SAT 97
[2023-05-05] MEDS: QUEtiapine 25mg tablet PO SCH ×3 (07:15→16:29)
[2023-05-05] MEDS: clotrimazole topical cream 15gm tube TP SCH ×2 (07:15→20:00)
[2023-05-05] MEDS: busPIRone 5mg tablet PO SCH ×3 (07:15→16:29)
[2023-05-05] MEDS: multivitamins, therapeutics tablet PO SCH (07:15)
[2023-05-05] MEDS: olanzapine 10mg tablet PO SCH (07:15)
[2023-05-05] MEDS: sennosides/docusate sodium tablet PO SCH ×2 (07:15→19:50)
[2023-05-05] MEDS: LORazepam 0.5 MG tablet PO SCH ×3 (07:15→19:49)
[2023-05-05] MEDS: buPROPion 75mg tablet PO SCH (07:15)
[2023-05-05 08:00] VITALS: BP 133/76; PULSE 67; RESP 16; TEMP 97.7; O2SAT 97
[2023-05-05] MEDS: LORazepam 1 MG tablet PO SCH (11:18)
[2023-05-05] MEDS: buprenorphine/naloxone 2-0.5mg sublingual tablet SL SCH (12:08)
--- NOTE | 2023-05-05 14:04 | NUR ---
Pt. attended group today. GORGE ChaudhryW
--- NOTE | 2023-05-05 17:06 | NUR ---
Nursing Progress Note: Problem : Pt admitted on 5150 for DTO from our ER. Pt reported that he constantly has thoughts of killing people. He does not know where he can live. He is homeless, does not eat and not wearing shoes. Pt has history of Schizophrenia; Bipolar; Anxiety; & Antisocial. Interventions : Maintained a safe and supportive environment, ensured contract for safety, provided clear and simple instructions, provided active listening and positive encouragement, and maintained Q 15min safety checks. Response : Received report from jukebox route driver, patient is in no acute distress at this time. Was asleep one my first check. Awoken and got dressed for breakfast and joined the community room all meals. Participated in stand up today, joined all of us on the patio with playing games. Interacting appropriately with other today. Patient has been pacing up and down the halls, along with sleeping. No delusions where heard on shift today. Patients overall presence was calm and collective. Has been tolerating his PO meds well, w/ no s/s of issues. Denies any suicidal thoughts or self harm. Pt stated earlier he was hearing voices of "bank robbing scenery and how/ where they are doing it." Will continue to monitor patients behavior. Plan : Pt. continues to require a safe and supportive environment and is awaiting placement.
--- NOTE | 2023-05-05 17:48 | NUR ---
COLOR DEPOSITING MACHINE TENDER documentation: I have reviewed interventions, assessments performed and documented by ZACHARY Escobedo.
[2023-05-05] MEDS: mirtazapine 15mg tablet PO SCH (19:50)
[2023-05-05] MEDS: quetiapine 100mg tablet PO SCH (19:50)
[2023-05-05] MEDS: Melatonin 3mg tablet PO SCH (19:50)
[2023-05-05 19:53] VITALS: BP 109/62; PULSE 65; RESP 16; TEMP 97.9; O2SAT 97
--- NOTE | 2023-05-06 01:24 | NUR ---
Nursing Progress Note: Chan Problem : Pt admitted on 5150 for DTO from our ER. Pt reported that he constantly has thoughts of killing people. He does not know where he can live. He is homeless, does not eat and not wearing shoes. Pt has history of Schizophrenia; Bipolar; Anxiety; & Antisocial. Interventions : Maintained a safe and supportive environment, ensured contract for safety, provided clear and simple instructions, provided active listening and positive encouragement, and maintained Q 15min safety checks. Response : Patient up in the halls and roaming from rec room to community room, talking with staff and peers. Pt cooperative and friendly and seems to be in a good mood. States he talked with his brother today who lives in town. He states he is cool and denies MH symptoms this shift. Participated in snacks and took all HS medications without issue. Plan : Pt. continues to require a safe and supportive environment and is awaiting placement.
[2023-05-06] MEDS: quetiapine 100mg tablet PO PRN (02:14)
[2023-05-06] MEDS: NICOTINE POLACRILEX 2 MG LOZENGE BC PRN ×7 (02:14→20:24)
[2023-05-06 07:00] VITALS: RESP 16; O2SAT 98
[2023-05-06 08:00] VITALS: BP 127/79; PULSE 82; RESP 16; TEMP 97.5; O2SAT 98
[2023-05-06] MEDS: busPIRone 5mg tablet PO SCH ×3 (08:21→15:20)
[2023-05-06] MEDS: LORazepam 0.5 MG tablet PO SCH ×3 (08:21→20:19)
[2023-05-06] MEDS: sennosides/docusate sodium tablet PO SCH ×2 (08:21→20:19)
[2023-05-06] MEDS: multivitamins, therapeutics tablet PO SCH (08:22)
[2023-05-06] MEDS: buPROPion 75mg tablet PO SCH (08:22)
[2023-05-06] MEDS: QUEtiapine 25mg tablet PO SCH ×3 (08:22→15:20)
[2023-05-06] MEDS: clotrimazole topical cream 15gm tube TP SCH ×2 (08:22→20:21)
[2023-05-06] MEDS: olanzapine 10mg tablet PO SCH (08:22)
[2023-05-06] MEDS: LORazepam 1 MG tablet PO SCH (12:49)
[2023-05-06] MEDS: buprenorphine/naloxone 2-0.5mg sublingual tablet SL SCH (12:50)
--- NOTE | 2023-05-06 17:36 | NUR ---
Nursing Progress Note: Problem : Pt admitted on 5150 for DTO from our ER. Pt reported that he constantly has thoughts of killing people. He does not know where he can live. He is homeless, does not eat and not wearing shoes. Pt has history of Schizophrenia; Bipolar; Anxiety; & Antisocial. Interventions : Maintained a safe and supportive environment, ensured contract for safety, provided clear and simple instructions, attempted to orient to reality, provided active listening and positive encouragement, and maintained Q 15min safety checks. Response : Received pt. awake on the unit at the beginning of the shift, he attended breakfast in the Group Room, and afterwards retreated back to bed. 1:1 was completed at bedside, pt. remains guarded with conversation and continues to deny all mental health s/s, he states in a guarded manner, "I'm okay." However, upon further questioning by this service writer, pt. abruptly started making what appeared to be paranoid delusional statements in a slightly irritable manner. He stated, "I get away with all these crimes I have committed because of a federal cover up!" Pt. tells this service writer, "The best you can do is to be a mandated district manager primary care sales, [place]'s involved, [facility], the state, and the feds." Pt. then threw his head back laughing in a hysterical manner and reported he is planning to file a law suit against this facility and the staff for malpractice. This service writer provided active listening and attempted to orient pt. to reality, however he remained fixed in these delusions. After this incident, pt. paced the hallway restlessly wearing headphones and laughing aloud at intervals, however further episodes of irritability were exhibited. Pt. was observed to be napping and present on the unit throughout the shift interacting appropriately with others. Plan : Pt. continues to require a safe and supportive environment and is awaiting placement.
[2023-05-06 19:00] VITALS: RESP 16; O2SAT 98
[2023-05-06 19:33] VITALS: BP 131/64; PULSE 84; RESP 16; TEMP 98.2; O2SAT 98
[2023-05-06] MEDS: Melatonin 3mg tablet PO SCH (20:19)
[2023-05-06] MEDS: mirtazapine 15mg tablet PO SCH (20:19)
[2023-05-06] MEDS: quetiapine 100mg tablet PO SCH (20:19)
[2023-05-07] MEDS: NICOTINE POLACRILEX 2 MG LOZENGE BC PRN ×4 (04:01→19:27)
[2023-05-07] MEDS: quetiapine 100mg tablet PO PRN (04:01)
--- NOTE | 2023-05-07 04:21 | NUR ---
Nursing Progress Note: Problem: Pt admitted on 5150 for DTO from our ER. Pt reported that he constantly has thoughts of killing people. He does not know where he can live. He is homeless, does not eat and not wearing shoes. Pt has history of Schizophrenia; Bipolar; Anxiety; & Antisocial. Interventions: Maintained a safe and supportive environment, ensured contract for safety, provided clear and simple instructions, attempted to orient to reality, provided active listening and positive encouragement, and maintained Q 15min safety checks. Response: Pt was in bed at start of shift, 1:1 was done at bedside. Pt started off saying his day was okay. Shila been resting a lot today. Pt denies SI/HI/VH. Pt endorses AH. I can deal with them. I listen to music to help distract myself. Pt is logical in thought. Pt is medication compliant, nicotine lozenge given PRN. Pt got up for snack them took it to his room. Pt is guarded during interview and withdrawn to self. No behavioral problems this shift. Monitor for safety. Plan: Pt. continues to require a safe and supportive environment and is awaiting placement.
[2023-05-07 07:00] VITALS: RESP 16; O2SAT 98
[2023-05-07 08:00] VITALS: BP 114/66; PULSE 82; RESP 16; TEMP 98.9; O2SAT 98
[2023-05-07] MEDS: sennosides/docusate sodium tablet PO SCH ×2 (08:09→20:36)
[2023-05-07] MEDS: multivitamins, therapeutics tablet PO SCH (08:09)
[2023-05-07] MEDS: LORazepam 0.5 MG tablet PO SCH ×3 (08:09→20:36)
[2023-05-07] MEDS: QUEtiapine 25mg tablet PO SCH ×3 (08:09→16:28)
[2023-05-07] MEDS: busPIRone 5mg tablet PO SCH ×3 (08:09→16:28)
[2023-05-07] MEDS: olanzapine 10mg tablet PO SCH (08:10)
[2023-05-07] MEDS: buPROPion 75mg tablet PO SCH (08:10)
[2023-05-07] MEDS: clotrimazole topical cream 15gm tube TP SCH ×2 (08:10→20:36)
[2023-05-07] MEDS: LORazepam 1 MG tablet PO SCH (12:14)
[2023-05-07] MEDS: buprenorphine/naloxone 2-0.5mg sublingual tablet SL SCH (12:15)
--- NOTE | 2023-05-07 14:31 | NUR ---
Nursing Progress Note: Problem : Pt admitted on 5150 for DTO from our ER. Pt reported that he constantly has thoughts of killing people. He does not know where he can live. He is homeless, does not eat and not wearing shoes. Pt has history of Schizophrenia; Bipolar; Anxiety; & Antisocial. Interventions : Maintained a safe and supportive environment, ensured contract for safety, provided clear and simple instructions, attempted to orient to reality, provided active listening and positive encouragement, and maintained Q 15min safety checks. Response : Received pt. sleeping in bed at the beginning of the shift, he awoke and attended breakfast in the Group Room, afterwards retreating back to his room as is his routine. 1:1 was completed at bedside, pt. endorses both auditory and visual hallucinations but appears to be minimizing these stating, "It's fine." When questioned further regarding the A/RODRIGUEZ he is experiencing, pt. stated, "It's like me having a conversation with myself." When questioned regarding the content of his V/RODRIGUEZ, pt. stated, "It's like dreaming while awake. They are fuzzy, but sometimes they come into clear view." Pt. did not make any delusional statements this shift. He was noted to be pacing restlessly in the hallway wearing headphones and laughing aloud at intervals during the morning, but was not observed to be doing this in the afternoon. No episodes of agitation were exhibited. Pt. was again observed to be napping and present on the unit throughout the shift interacting appropriately with others. Plan : Pt. continues to require a safe and supportive environment and is awaiting placement.
[2023-05-07 19:00] VITALS: RESP 18; O2SAT 98
[2023-05-07 19:40] VITALS: BP 114/72; PULSE 91; RESP 18; TEMP 97.9; O2SAT 98
[2023-05-07] MEDS: Melatonin 3mg tablet PO SCH (20:37)
[2023-05-07] MEDS: mirtazapine 15mg tablet PO SCH (20:37)
[2023-05-07] MEDS: quetiapine 100mg tablet PO SCH (20:37)
--- NOTE | 2023-05-08 04:58 | NUR ---
Nursing Progress Note: Problem: Pt admitted on 5150 for DTO from our ER. Pt reported that he constantly has thoughts of killing people. He does not know where he can live. He is homeless, does not eat and not wearing shoes. Pt has history of Schizophrenia; Bipolar; Anxiety; & Antisocial. Interventions: Maintained a safe and supportive environment, ensured contract for safety, provided clear and simple instructions, attempted to orient to reality, provided active listening and positive encouragement, and maintained Q 15min safety checks. Response: Pt is listening to the headphones walking the unit. He asked for a nicotine lozenge if it was time. Pt is calm, pleasant and cooperative. Pt denies SI/HI but endorses audio and visual hallucinations. Its all good, they dont bother me much. Pt minimizes his symptoms. Pt is medication compliant. No paranoid or delusional statements made. Pt socializes with other peers. Monitor for safety. Plan: Pt. continues to require a safe and supportive environment and is awaiting placement.
[2023-05-08] MEDS: NICOTINE POLACRILEX 2 MG LOZENGE BC PRN ×3 (06:11→21:04)
[2023-05-08 07:00] VITALS: BP 124/81; PULSE 84; RESP 12; TEMP 97.1; O2SAT 96
[2023-05-08] MEDS: busPIRone 5mg tablet PO SCH ×3 (07:43→16:09)
[2023-05-08] MEDS: buPROPion 75mg tablet PO SCH (07:43)
[2023-05-08] MEDS: sennosides/docusate sodium tablet PO SCH ×2 (07:43→20:52)
[2023-05-08] MEDS: LORazepam 0.5 MG tablet PO SCH ×3 (07:43→20:52)
[2023-05-08] MEDS: olanzapine 10mg tablet PO SCH (07:43)
[2023-05-08] MEDS: multivitamins, therapeutics tablet PO SCH (07:43)
[2023-05-08] MEDS: QUEtiapine 25mg tablet PO SCH ×3 (07:44→16:09)
[2023-05-08] MEDS: clotrimazole topical cream 15gm tube TP SCH ×2 (07:44→20:54)
--- NOTE | 2023-05-08 10:33 | NUR ---
Reassessment: PO intake has improved, documented with refusal x 1 meal making average PO intake 75% since last RD assessment (lunch 05/04). Pt continues receiving double eggs WB and double entree BIDLD. Overall estimated nutrient needs are being met. LBM 6 per EMR. No further nutrition intervention implemented at this time. Will continue to follow. Recommendations: 1. Continue vegan diet; double entree TIDWM. Return to regular diet per pt/provider discretion; encourage PO 2. Routine MVI supplementation given pt stature/vegan diet 3. Routine bowel care 4. Weekly scaled wts Addendum: 05/08/23 at [address] RD Amended: Links added.
[2023-05-08] MEDS: LORazepam 1 MG tablet PO SCH (12:32)
--- NOTE | 2023-05-08 12:38 | NUR ---
Left message for Chan's PG, Jl (ph# [phone]), requesting a call back to discuss behavioral plan. MARIA LUISA Villeda
--- NOTE | 2023-05-08 13:44 | NUR ---
Sent updated notes to [facility] office (04/30-05/07). Spoke to PG, Jl (ph# [phone]), regarding behavioral plan and with ways to reward Chan. Jl reported he will talk to his matrix supervisor and get back to proposal manager writer on Thursday. MARIA LUISA Villeda
--- NOTE | 2023-05-08 17:33 | NUR ---
Nursing Progress Note: Problem : Pt admitted on 5150 for DTO from our ER. Pt reported that he constantly has thoughts of killing people. He does not know where he can live. He is homeless, does not eat and not wearing shoes. Pt has history of Schizophrenia; Bipolar; Anxiety; & Antisocial. Interventions : Maintained a safe and supportive environment, ensured contract for safety, provided clear and simple instructions, attempted to orient to reality, provided active listening and positive encouragement, and maintained Q 15min safety checks. Response: Patient awake pacing the hallways at change of shift. Patient took his medications without incident. Patient joins his peers in the community room for meals. Patient takes intermittent naps throughout the day. Patient has started laughing loudly on the unit this morning. Patient trimmed up his facial hair and looks neat and clean. Today, patient denies all A/V/H. Patient has been appropriate all shift in his interactions with others. Plan : Pt. continues to require a safe and supportive environment and is awaiting placement.
[2023-05-08 19:00] VITALS: RESP 18; O2SAT 98
[2023-05-08 20:00] VITALS: BP 135/82; PULSE 98; RESP 18; TEMP 97.9; O2SAT 98
[2023-05-08] MEDS: Melatonin 3mg tablet PO SCH (20:52)
[2023-05-08] MEDS: quetiapine 100mg tablet PO SCH (20:52)
[2023-05-08] MEDS: quetiapine 100mg tablet PO PRN (20:52)
[2023-05-08] MEDS: mirtazapine 15mg tablet PO SCH (20:52)
--- NOTE | 2023-05-09 03:57 | NUR ---
Nursing Progress Note: Problem: Pt admitted on 5150 for DTO from our ER. Pt reported that he constantly has thoughts of killing people. He does not know where he can live. He is homeless, does not eat and not wearing shoes. Pt has history of Schizophrenia; Bipolar; Anxiety; & Antisocial. Interventions: Maintained a safe and supportive environment, ensured contract for safety, provided clear and simple instructions, attempted to orient to reality, provided active listening and positive encouragement, and maintained Q 15min safety checks. Response: Received Pt awake and walking around unit. Pt laughing loudly at times and appears to be in pleasant mood. Pt stated If Im gonna do life than just murder and rape as many people as I want. Pt stated I oriental orthodox satan anyway. Discussed consequences of statements and Pt remained smiling and laughing. Pt used nicotine lozenge and listened to music with headphones appropriately. He denies SI/HI and endorses A/VHs. Socialized with other Pts and took HS meds and went to sleep. Will continue to monitor. Plan: Pt. continues to require a safe and supportive environment and is awaiting placement.
[2023-05-09] MEDS: NICOTINE POLACRILEX 2 MG LOZENGE BC PRN ×3 (04:00→16:07)
[2023-05-09 07:00] VITALS: RESP 16; O2SAT 98
[2023-05-09 07:08] VITALS: BP 143/69; PULSE 88; RESP 16; TEMP 97.2; O2SAT 98
[2023-05-09] MEDS: buPROPion 75mg tablet PO SCH (07:54)
[2023-05-09] MEDS: olanzapine 10mg tablet PO SCH (07:54)
[2023-05-09] MEDS: multivitamins, therapeutics tablet PO SCH (07:54)
[2023-05-09] MEDS: sennosides/docusate sodium tablet PO SCH ×2 (07:54→20:17)
[2023-05-09] MEDS: QUEtiapine 25mg tablet PO SCH ×3 (07:54→16:05)
[2023-05-09] MEDS: LORazepam 0.5 MG tablet PO SCH ×3 (07:54→20:17)
[2023-05-09] MEDS: clotrimazole topical cream 15gm tube TP SCH ×2 (07:55→20:17)
[2023-05-09] MEDS: busPIRone 5mg tablet PO SCH ×3 (07:56→16:05)
[2023-05-09] MEDS: LORazepam 1 MG tablet PO SCH (12:53)
[2023-05-09] MEDS: quetiapine 100mg tablet PO PRN (17:36)
--- NOTE | 2023-05-09 17:53 | NUR ---
Nursing Progress Note: Problem : Pt admitted on 5150 for DTO from our ER. Pt reported that he constantly has thoughts of killing people. He does not know where he can live. He is homeless, does not eat and not wearing shoes. Pt has history of Schizophrenia; Bipolar; Anxiety; & Antisocial. Interventions : Maintained a safe and supportive environment, ensured contract for safety, provided clear and simple instructions, attempted to orient to reality, provided active listening and positive encouragement, and maintained Q 15min safety checks. Response: Patient awake walking hallways at change of shift. Patient just goes from one group of peers to the next. Patient is medication compliant. Patient attends all meals in the community room. Patient has been sleeping most of the day since breakfast. Patient is not in a talking mood, and barely answers questions adequately. Patient denies A/H, when asked why he tells one nurse that he is having A/H and then tells me that he is not, patient explained that he does not hear them all the time. Patient did not attend group. Later in the afternoon, patient was making delusional statements to a male peer, stating that he owns 7 trucks and has 7 truck drivers earning money for him. Patient stating that he was having anxiety in the afternoon and requested prn Seroquel, which was administered with effectiveness. Plan : Pt. continues to require a safe and supportive environment and is awaiting placement.
[2023-05-09 19:00] VITALS: BP 123/64; PULSE 83; RESP 15; TEMP 98.4; O2SAT 95
[2023-05-09] MEDS: quetiapine 100mg tablet PO SCH (20:16)
[2023-05-09] MEDS: Melatonin 3mg tablet PO SCH (20:17)
[2023-05-09] MEDS: mirtazapine 15mg tablet PO SCH (20:17)
--- NOTE | 2023-05-10 02:50 | NUR ---
RN PROGRESS NOTE: LEGAL HOLD: LPS for GD PROBLEM: History of Schizophrenia, Bipolar DO, and Antisocial Personality Disorder. On admission client reported he constantly thinks of "killing people". INTERVENTIONS: Maintained a safe and supportive environment, ensured contract for safety, provided clear and simple instructions, attempted to orient to reality, provided active listening and positive encouragement, and maintained Q 15min safety checks. RESPONSE: Client is pleasant and engages with others on the unit. He was active, walking in the lion and playing cards with others. He sometimes laughs randomly, unrelated to anything happening around him. Client requested his meds "early". Denies side effects to medications. Took all PM meds.
[2023-05-10] MEDS: NICOTINE POLACRILEX 2 MG LOZENGE BC PRN ×5 (06:41→16:55)
[2023-05-10 07:29] VITALS: BP 113/51; PULSE 84; RESP 18; TEMP 97.2; O2SAT 97
[2023-05-10] MEDS: olanzapine 10mg tablet PO SCH (08:03)
[2023-05-10] MEDS: multivitamins, therapeutics tablet PO SCH (08:03)
[2023-05-10] MEDS: LORazepam 0.5 MG tablet PO SCH ×3 (08:04→20:32)
[2023-05-10] MEDS: QUEtiapine 25mg tablet PO SCH ×3 (08:04→16:55)
[2023-05-10] MEDS: buPROPion 75mg tablet PO SCH (08:04)
[2023-05-10] MEDS: sennosides/docusate sodium tablet PO SCH ×2 (08:04→20:32)
[2023-05-10] MEDS: busPIRone 5mg tablet PO SCH ×3 (08:04→16:55)
[2023-05-10] MEDS: clotrimazole topical cream 15gm tube TP SCH ×2 (08:05→20:32)
[2023-05-10] MEDS: LORazepam 1 MG tablet PO SCH (12:57)
--- NOTE | 2023-05-10 17:00 | NUR ---
NURSING PROGRESS NOTE Problem : Pt admitted on 5150 for DTO from our ER. Pt reported that he constantly has thoughts of killing people. He does not know where he can live. He is homeless, does not eat and not wearing shoes. Pt has history of Schizophrenia; Bipolar; Anxiety; & Antisocial. Interventions : Maintained a safe and supportive environment, ensured contract for safety, provided clear and simple instructions, attempted to orient to reality, provided active listening and positive encouragement, and maintained Q 15min safety checks. Response: Received patient sleeping at shift change. Pt was compliant with care and medications. Pt slept or isolated to his room most of the shift, coming out for meals and occasional pacing in the lion. Pt intermittently talks with peers or watches T.V. When asked to describe his mood I am frustrated with this place. I have been here for nine months. Packing Floor Worker encouraged pt to utilize coping skills as opposed to lashing out at staff. Pt states Ya I know. Im good. Pts only PRN was nicotine lozenges. Plan : Pt. continues to require a safe and supportive environment and is awaiting placement.
[2023-05-10 19:00] VITALS: BP 124/56; PULSE 62; RESP 16; TEMP 97.8; O2SAT 97
[2023-05-10] MEDS: mirtazapine 15mg tablet PO SCH (20:32)
[2023-05-10] MEDS: quetiapine 100mg tablet PO SCH (20:32)
[2023-05-10] MEDS: Melatonin 3mg tablet PO SCH (20:32)
--- NOTE | 2023-05-10 21:44 | NUR ---
RN PROGRESS NOTE: LEGAL HOLD: LPS for GD PROBLEM: History of Schizophrenia, Bipolar DO, and Antisocial Personality Disorder. On admission client reported he constantly thinks of "killing people". INTERVENTIONS: Maintained a safe and supportive environment, ensured contract for safety, provided clear and simple instructions, attempted to orient to reality, provided active listening and positive encouragement, and maintained Q 15min safety checks. RESPONSE: Client was quiet, paced on unit. Took PM meds. Mood is stable at this time. Blunted affect. Client did not make delusional statements during this shift (as was reported earlier by day shift).
[2023-05-11] MEDS: NICOTINE POLACRILEX 2 MG LOZENGE BC PRN ×5 (04:31→17:43)
[2023-05-11] MEDS: buPROPion 75mg tablet PO SCH (07:25)
[2023-05-11] MEDS: QUEtiapine 25mg tablet PO SCH ×3 (07:25→15:43)
[2023-05-11] MEDS: olanzapine 10mg tablet PO SCH (07:25)
[2023-05-11] MEDS: multivitamins, therapeutics tablet PO SCH (07:25)
[2023-05-11] MEDS: clotrimazole topical cream 15gm tube TP SCH ×2 (07:25→20:00)
[2023-05-11] MEDS: busPIRone 5mg tablet PO SCH ×3 (07:25→15:43)
[2023-05-11] MEDS: LORazepam 0.5 MG tablet PO SCH ×3 (07:25→20:15)
[2023-05-11] MEDS: sennosides/docusate sodium tablet PO SCH ×2 (07:25→20:15)
[2023-05-11 07:49] VITALS: BP 126/69; PULSE 98; RESP 17; TEMP 98.5; O2SAT 100
--- NOTE | 2023-05-11 08:11 | NUR ---
PLACEMENT UPDATE His packet is currently in que at [facility], [facility], [facility], [facility], [facility], [facility]. He has been declined at [facility] and [facility]. MARIA LUISA Villeda
[2023-05-11] MEDS: LORazepam 1 MG tablet PO SCH (12:38)
--- NOTE | 2023-05-11 17:26 | NUR ---
NURSING PROGRESS NOTE Problem : Pt admitted on 5150 for DTO from our ER. Pt reported that he constantly has thoughts of killing people. He does not know where he can live. He is homeless, does not eat and not wearing shoes. Pt has history of Schizophrenia; Bipolar; Anxiety; & Antisocial. Interventions : Maintained a safe and supportive environment, ensured contract for safety, provided clear and simple instructions, attempted to orient to reality, provided active listening and positive encouragement, and maintained Q 15min safety checks. Response: Received patient pacing lion at shift change, pt utilizes headphones for distraction. Pt requested nicotine lozenge then went and watched T.V in group room. Pt continues to be compliant with his care plan. No behaviors observed or reported. Pt is visible on unit, social with select peers. Pt attended group today. PRN Nicotine lozenges utilized. Plan : Pt. continues to require a safe and supportive environment and is awaiting placement.
[2023-05-11 19:34] VITALS: RESP 16; O2SAT 96
[2023-05-11 20:00] VITALS: BP 112/56; PULSE 78; RESP 16; TEMP 97.3; O2SAT 96
[2023-05-11] MEDS: quetiapine 100mg tablet PO SCH (20:16)
[2023-05-11] MEDS: Melatonin 3mg tablet PO SCH (20:16)
[2023-05-11] MEDS: mirtazapine 15mg tablet PO SCH (20:16)
--- NOTE | 2023-05-12 00:37 | NUR ---
NURSING PROGRESS NOTE Problem : Pt admitted on 5150 for DTO from our ER. Pt reported that he constantly has thoughts of killing people. He does not know where he can live. He is homeless, does not eat and not wearing shoes. Pt has history of Schizophrenia; Bipolar; Anxiety; & Antisocial. Interventions : Maintained a safe and supportive environment, ensured contract for safety, provided clear and simple instructions, attempted to orient to reality, provided active listening and positive encouragement, and maintained Q 15min safety checks. Response: Pt. pacing the unit at change of shift and later observed lying in bed. Pt. was awaken for night medications. He continues to be cooperative and compliant with medications. Pt. provided snack this evening and returned to room afterwards. Denies SI/HI/AH/VH. Observed and appears to be sleeping without difficulty. Plan : Pt. continues to require a safe and supportive environment and is awaiting placement.
--- NOTE | 2023-05-12 04:55 | NUR ---
EGG GATHERER documentation: I have reviewed and agree with all interventions, assessments performed and documented by Jennifer Felder LVN.
[2023-05-12] MEDS: NICOTINE POLACRILEX 2 MG LOZENGE BC PRN ×4 (06:35→19:05)
[2023-05-12 07:23] VITALS: BP 132/80; PULSE 97; RESP 16; TEMP 98.3; O2SAT 98
[2023-05-12] MEDS: busPIRone 5mg tablet PO SCH ×3 (07:41→16:07)
[2023-05-12] MEDS: olanzapine 10mg tablet PO SCH (07:41)
[2023-05-12] MEDS: QUEtiapine 25mg tablet PO SCH ×3 (07:41→16:07)
[2023-05-12] MEDS: sennosides/docusate sodium tablet PO SCH ×2 (07:41→20:24)
[2023-05-12] MEDS: LORazepam 0.5 MG tablet PO SCH ×3 (07:41→20:24)
[2023-05-12] MEDS: multivitamins, therapeutics tablet PO SCH (07:41)
[2023-05-12] MEDS: buPROPion 75mg tablet PO SCH (07:42)
[2023-05-12] MEDS: clotrimazole topical cream 15gm tube TP SCH ×2 (07:44→20:25)
[2023-05-12] MEDS: LORazepam 1 MG tablet PO SCH (12:21)
--- NOTE | 2023-05-12 16:36 | NUR ---
NURSING PROGRESS NOTE Problem : Pt admitted on 5150 for DTO from our ER. Pt reported that he constantly has thoughts of killing people. He does not know where he can live. He is homeless, does not eat and not wearing shoes. Pt has history of Schizophrenia; Bipolar; Anxiety; & Antisocial. Interventions : Maintained a safe and supportive environment, ensured contract for safety, provided clear and simple instructions, attempted to orient to reality, provided active listening and positive encouragement, and maintained Q 15min safety checks. Response: Received patient sleeping at shift change. Pt was quiet this shift, keeping to himself, but out of his room. Pt utilized the headphones throughout the day. Pt was compliant with mediation and care. Pt was encouraged to shower, but declined. Pt given clean socks as he c/o itching feet. Pt uses Lotrimin cream for athletes foot. Pt attended group. PRN Nicotine lozenges utilized. Plan : Pt. continues to require a safe and supportive environment and is awaiting placement.
[2023-05-12 19:32] VITALS: RESP 18; O2SAT 95
[2023-05-12 19:34] VITALS: BP 152/80; PULSE 107; RESP 18; TEMP 97.6; O2SAT 95
[2023-05-12] MEDS: quetiapine 100mg tablet PO SCH (20:25)
[2023-05-12] MEDS: mirtazapine 15mg tablet PO SCH (20:25)
[2023-05-12] MEDS: Melatonin 3mg tablet PO SCH (20:25)
--- NOTE | 2023-05-13 02:07 | NUR ---
NURSING PROGRESS NOTE Problem : Pt admitted on 5150 for DTO from our ER. Pt reported that he constantly has thoughts of killing people. He does not know where he can live. He is homeless, does not eat and not wearing shoes. Pt has history of Schizophrenia; Bipolar; Anxiety; & Antisocial. Interventions : Maintained a safe and supportive environment, ensured contract for safety, provided clear and simple instructions, attempted to orient to reality, provided active listening and positive encouragement, and maintained Q 15min safety checks. Response: Pt. received in the lion socializing with staff and peers rapping and talking about exercising. Pt. participated in evening snack and returned to his room afterwards. Pt. pleasant and cooperative. Medication compliant. PRN nicotine lozenge provided tonight. Denies SI/HI/AH/VH. Observed and appears to be sleeping without difficulty. Plan : Pt. continues to require a safe and supportive environment and is awaiting placement.
--- NOTE | 2023-05-13 05:09 | NUR ---
PRODUCT DEVELOPMENT WORKER documentation: I have reviewed and agree with all interventions, assessments performed and documented by Jennifer Felder LVN.
[2023-05-13] MEDS: NICOTINE POLACRILEX 2 MG LOZENGE BC PRN ×5 (05:25→18:31)
[2023-05-13 07:00] VITALS: BP 123/70; PULSE 69; RESP 20; TEMP 97.7; O2SAT 99
[2023-05-13] MEDS: QUEtiapine 25mg tablet PO SCH ×3 (07:42→15:45)
[2023-05-13] MEDS: sennosides/docusate sodium tablet PO SCH ×2 (07:42→20:07)
[2023-05-13] MEDS: clotrimazole topical cream 15gm tube TP SCH ×2 (07:43→20:00)
[2023-05-13] MEDS: LORazepam 0.5 MG tablet PO SCH ×3 (07:43→20:07)
[2023-05-13] MEDS: buPROPion 75mg tablet PO SCH (07:43)
[2023-05-13] MEDS: busPIRone 5mg tablet PO SCH ×3 (07:43→15:45)
[2023-05-13] MEDS: multivitamins, therapeutics tablet PO SCH (07:43)
[2023-05-13] MEDS: olanzapine 10mg tablet PO SCH (07:43)
--- NOTE | 2023-05-13 08:05 | NUR ---
Reassessment: PO intake slightly fluctuates however overall pt eating well, documented with average 83% PO intake of meals while receiving double eggs WB and double entree BIDLD. Pt meeting estimated nutrient needs. LBM 05/10 per EMR. Pt receiving routine bowel care and has additional PRN bowel care available. No further nutrition intervention implemented at this time. Will continue to follow. Recommendations: 1. Continue vegan diet; double entree TIDWM. Return to regular diet per pt/provider discretion; encourage PO 2. Routine MVI supplementation given pt stature/vegan diet 3. Routine bowel care; utilize PRN bowel care if pt continues without a BM 4. Weekly scaled wts Addendum: 05/13/23 at [address] Amended: Links added.
[2023-05-13] MEDS: LORazepam 1 MG tablet PO SCH (12:07)
--- NOTE | 2023-05-13 17:46 | NUR ---
NURSING PROGRESS NOTE Problem : Pt admitted on 5150 for DTO from our ER. Pt reported that he constantly has thoughts of killing people. He does not know where he can live. He is homeless, does not eat and not wearing shoes. Pt has history of Schizophrenia; Bipolar; Anxiety; & Antisocial. Interventions : Maintained a safe and supportive environment, ensured contract for safety, provided clear and simple instructions, attempted to orient to reality, provided active listening and positive encouragement, and maintained Q 15min safety checks. Response: Patient awakened shortly after change of shift. Patient is medication compliant. Patient utilized prn nicotine lozenges. Patient ate breakfast this morning and then was heard vomiting. Patient filled half the sink full of undigested food. Patient then went into the group room and ate another breakfast and reports that he feels fine. Patient wearing headphones when he sleeps and while he is awake. Patient has no complaints at this time. Plan : Pt. continues to require a safe and supportive environment and is awaiting placement.
[2023-05-13 19:00] VITALS: RESP 18; O2SAT 96
[2023-05-13] MEDS: mirtazapine 15mg tablet PO SCH (20:07)
[2023-05-13] MEDS: Melatonin 3mg tablet PO SCH (20:07)
[2023-05-13] MEDS: quetiapine 100mg tablet PO SCH (20:07)
[2023-05-13 20:50] VITALS: BP 133/76; PULSE 103; RESP 18; TEMP 97.6; O2SAT 96
[2023-05-14] MEDS: NICOTINE POLACRILEX 2 MG LOZENGE BC PRN ×5 (03:45→20:18)
--- NOTE | 2023-05-14 04:54 | NUR ---
NURSING PROGRESS NOTE Anjel Problem : Pt admitted on 5150 for DTO from our ER. Pt reported that he constantly has thoughts of killing people. He does not know where he can live. He is homeless, does not eat and not wearing shoes. Pt has history of Schizophrenia; Bipolar; Anxiety; & Antisocial. Interventions : Maintained a safe and supportive environment, ensured contract for safety, provided clear and simple instructions, attempted to orient to reality, provided active listening and positive encouragement, and maintained Q 15min safety checks. Response: Patient received walking in hallway. Pt requested PRN Nicotine lozenges during shift x 2. Pt no longer nauseous. Pt observed conversing with other peers during shift. Patient declined Lotrimin cream during med pass. Patient enjoyed watching a movie this evening. Pt woke up early this morning at 2am and 4am to drink water/request nicotine lozenges and pace the halls/listen to music respectively. Plan : Pt. continues to require a safe and supportive environment and is awaiting placement.
--- NOTE | 2023-05-14 05:26 | NUR ---
QUALITY FACILITATOR documentation: I have reviewed and agree with all interventions, assessments performed and documented by Ryan Monaco LVN.
[2023-05-14 07:00] VITALS: RESP 16; O2SAT 98
[2023-05-14] MEDS: LORazepam 0.5 MG tablet PO SCH ×3 (07:32→20:16)
[2023-05-14] MEDS: busPIRone 5mg tablet PO SCH ×3 (07:33→16:09)
[2023-05-14] MEDS: multivitamins, therapeutics tablet PO SCH (07:33)
[2023-05-14] MEDS: QUEtiapine 25mg tablet PO SCH ×3 (07:33→16:09)
[2023-05-14] MEDS: sennosides/docusate sodium tablet PO SCH ×2 (07:33→20:15)
[2023-05-14] MEDS: buPROPion 75mg tablet PO SCH (07:34)
[2023-05-14] MEDS: olanzapine 10mg tablet PO SCH (07:34)
[2023-05-14] MEDS: clotrimazole topical cream 15gm tube TP SCH ×2 (07:34→20:00)
[2023-05-14 08:00] VITALS: BP 125/74; PULSE 82; RESP 16; TEMP 98.1; O2SAT 98
[2023-05-14] MEDS: LORazepam 1 MG tablet PO SCH (12:12)
--- NOTE | 2023-05-14 14:11 | NUR ---
Behavioral Plan for Chan May 15-May 29 Attend 4 groups a week Continue current medication regimen without changes Cannot engage in any self harming behaviors No suicidal or homicidal statements transplant worker is working with Public Guardian to try to arrange a plan for Chan to have lunch with his parents on the patio or in the consultation room as a reward for 2 weeks of good behavior. Rachel Hahn LMFT
--- NOTE | 2023-05-14 16:40 | NUR ---
Nursing Progress Note: Problem : Pt admitted on 5150 for DTO from our ER. Pt reported that he constantly has thoughts of killing people. He does not know where he can live. He is homeless, does not eat and not wearing shoes. Pt has history of Schizophrenia; Bipolar; Anxiety; & Antisocial. Interventions : Maintained a safe and supportive environment, ensured contract for safety, provided clear and simple instructions, attempted to orient to reality, provided active listening and positive encouragement, and maintained Q 15min safety checks. Response : Received pt. sleeping in bed at the beginning of the shift, he awoke and attended breakfast in the Group Room, afterwards retreating back to his room as is his routine. 1:1 was completed at bedside, pt. denies all mental health signs and symptoms and does not appear to be internally preoccupied. When questioned by this commercial loan underwriter regarding any updates regarding discharge pt. stated, "I got declined at three places." He then continued on in what appeared to be a delusional manner to talk about how he believes they are looking in to sending him to [facility] so at least he would be able to go outside and smoke. Per foster care social worker note, they are working with pt's public guardian to try and arrange for pt. to have lunch with his family as a reward for two weeks of good behavior. Pt. was again observed to be napping, listening to headphones, and present on the unit throughout the shift interacting appropriately with others. Plan : Pt. continues to require a safe and supportive environment and is awaiting placement.
[2023-05-14 19:00] VITALS: RESP 14; O2SAT 97
[2023-05-14 19:21] VITALS: BP 134/72; PULSE 60; RESP 14; TEMP 98.2; O2SAT 97
[2023-05-14] MEDS: quetiapine 100mg tablet PO SCH (20:16)
[2023-05-14] MEDS: mirtazapine 15mg tablet PO SCH (20:16)
[2023-05-14] MEDS: Melatonin 3mg tablet PO SCH (20:16)
[2023-05-15] MEDS: NICOTINE POLACRILEX 2 MG LOZENGE BC PRN ×5 (02:44→19:38)
--- NOTE | 2023-05-15 04:49 | NUR ---
Nursing Progress Note: Problem : Pt admitted on 5150 for DTO from our ER. Pt reported that he constantly has thoughts of killing people. He does not know where he can live. He is homeless, does not eat and not wearing shoes. Pt has history of Schizophrenia; Bipolar; Anxiety; & Antisocial. Interventions : Maintained a safe and supportive environment, ensured contract for safety, provided clear and simple instructions, attempted to orient to reality, provided active listening and positive encouragement, and maintained Q 15min safety checks. Response : Received patient ambulating in hallways. Pt denies S/I and H/I. Pt conversed with peers. Pt requests candy at nursing station. Pt compliant with medication pass. Pt verbalizes he would like to increase his Remeron. Packing Machine Feeder inquired his rationale. He stated he is not sleeping through the night. Today, pt was up at approximately 0300hrs. Pt would like something to help him stay sleeping through the night. Pt was friendly with 1:1 assessment. Pt stated he had a good day. He also noted that he worked out today. His goal is to be more muscular than his present state. He would like to pursue a dream journal. In addition, he would like to pursue tarot card and [employer] board spirit summoning. Pt had mentioned he wanted to go [facility] so that he could smoke cigarettes. Pt continues to use the headphones to listen to music. Pt requests to refill water pitcher x 3. Pt make his needs know in an appropriate manner. Plan : Pt. continues to require a safe and supportive environment and is awaiting placement.
[2023-05-15 07:00] VITALS: RESP 16; O2SAT 100
[2023-05-15] MEDS: busPIRone 5mg tablet PO SCH ×3 (07:14→16:09)
[2023-05-15] MEDS: sennosides/docusate sodium tablet PO SCH ×2 (07:14→20:21)
[2023-05-15] MEDS: LORazepam 0.5 MG tablet PO SCH ×3 (07:14→20:21)
[2023-05-15] MEDS: multivitamins, therapeutics tablet PO SCH (07:14)
[2023-05-15] MEDS: buPROPion 75mg tablet PO SCH (07:14)
[2023-05-15] MEDS: QUEtiapine 25mg tablet PO SCH ×3 (07:15→16:09)
[2023-05-15] MEDS: olanzapine 10mg tablet PO SCH (07:15)
[2023-05-15] MEDS: clotrimazole topical cream 15gm tube TP SCH ×2 (07:19→20:00)
[2023-05-15 08:00] VITALS: BP 125/62; PULSE 70; RESP 16; TEMP 98.3; O2SAT 100
--- NOTE | 2023-05-15 10:59 | NUR ---
PLACEMENT UPDATE Sent updated notes (05/08-05/14) to [facility] office. His packet is currently in que at [facility], [facility], [facility], [facility], [facility], [facility]. He has been declined at [facility]. MARIA LUISA Villeda
[2023-05-15] MEDS: LORazepam 1 MG tablet PO SCH (12:29)
--- NOTE | 2023-05-15 15:19 | NUR ---
NURSING PROGRESS NOTE Levon Problem: Pt admitted on 5150 for DTO from our ER. Pt reported that he constantly has thoughts of killing people. He does not know where he can live. He is homeless, does not eat and not wearing shoes. Pt has history of Schizophrenia; Bipolar; Anxiety; & Antisocial. Interventions: One to one to assess mood, therapeutic communication, active listening, provided clear and simple instructions, medication administration/education/monitoring, behavior monitoring and intervention as needed, positive reinforcement, reality orientation, maintained a safe and supportive environment, and Q15 minute safety checks. Response: Received Pt in bed sleeping w/o distress. He woke and was cooperative with vitals and woke for the day. Pt took AM and all scheduled med w/o issue and used nicotine lozenges throughout the day. Overall in pleasant mood and asked for needs appropriately. Pt ate meals and snack well. Pt denies SI/HI and AH/VHs. Plan: Patient is conserved and awaiting placement in [facility] safe and therapeutic environment.
[2023-05-15] MEDS: buprenorphine/naloxone 2-0.5mg sublingual tablet SL SCH (18:02)
[2023-05-15 19:00] VITALS: BP 120/61; PULSE 74; RESP 18; TEMP 97; O2SAT 96
[2023-05-15] MEDS: quetiapine 100mg tablet PO SCH (20:21)
[2023-05-15] MEDS: Melatonin 3mg tablet PO SCH (20:21)
[2023-05-15] MEDS: mirtazapine 15mg tablet PO SCH (20:22)
[2023-05-15] MEDS: quetiapine 100mg tablet PO PRN (21:14)
[2023-05-16] MEDS: NICOTINE POLACRILEX 2 MG LOZENGE BC PRN ×5 (03:31→21:00)
--- NOTE | 2023-05-16 05:03 | NUR ---
Nursing Progress Note: Problem : Pt admitted on 5150 for DTO from our ER. Pt reported that he constantly has thoughts of killing people. He does not know where he can live. He is homeless, does not eat and not wearing shoes. Pt has history of Schizophrenia; Bipolar; Anxiety; & Antisocial. Interventions : Maintained a safe and supportive environment, ensured contract for safety, provided clear and simple instructions, attempted to orient to reality, provided active listening and positive encouragement, and maintained Q 15min safety checks. Response : Pt greeted staff by nursing station. Pt began to describe to marketing copywriter how to make pruno in detail. Pt has a vast detailed experience from his long history with long term. Pt stated he has been in/out of long term and the mental health system since 14 years old. Pt converses well with staff. Pt also observed inquiring wellbeing of other staff on unit. Pt denies S/I and H/I. Pt mainly converses with staff and select peers. Pt did discuss with provider today about his sleep. Pt will be started suboxene as well. Pt was compliant with all medication except refusing his lotrimin. Pt accessed PRN Nicotine lozenges during shift. Pt did complain of insomnia 1 hour after receiving scheduled night medications and access PRN Olanzapine. PRN Clozapine was effective. Pt awoke at 0300hrs to access a PRN Nicotine lozenge and resumed sleeping. Plan : Pt. continues to require a safe and supportive environment and is awaiting placement. Addendum: 05/16/23 at 0504 by Ryan Means LVN, LVN Addendum. PRN for Insomnia was Olazapine and not Clozapine.
[2023-05-16 07:00] VITALS: RESP 18; O2SAT 98
[2023-05-16 08:00] VITALS: BP 126/77; PULSE 80; RESP 18; TEMP 98.4; O2SAT 98
[2023-05-16] MEDS: sennosides/docusate sodium tablet PO SCH ×2 (08:12→20:05)
[2023-05-16] MEDS: LORazepam 0.5 MG tablet PO SCH ×3 (08:12→20:05)
[2023-05-16] MEDS: QUEtiapine 25mg tablet PO SCH ×3 (08:12→16:26)
[2023-05-16] MEDS: busPIRone 5mg tablet PO SCH ×3 (08:12→16:26)
[2023-05-16] MEDS: buprenorphine/naloxone 2-0.5mg sublingual tablet SL SCH ×2 (08:13→16:26)
[2023-05-16] MEDS: buPROPion 75mg tablet PO SCH (08:13)
[2023-05-16] MEDS: clotrimazole topical cream 15gm tube TP SCH ×2 (08:13→20:00)
[2023-05-16] MEDS: olanzapine 10mg tablet PO SCH (08:13)
[2023-05-16] MEDS: multivitamins, therapeutics tablet PO SCH (08:13)
[2023-05-16] MEDS: LORazepam 1 MG tablet PO SCH (13:00)
--- NOTE | 2023-05-16 16:37 | NUR ---
Nursing Progress Note: Problem : Pt admitted on 5150 for DTO from our ER. Pt reported that he constantly has thoughts of killing people. He does not know where he can live. He is homeless, does not eat and not wearing shoes. Pt has history of Schizophrenia; Bipolar; Anxiety; & Antisocial. Interventions : Maintained a safe and supportive environment, ensured contract for safety, provided clear and simple instructions, attempted to orient to reality, provided active listening and positive encouragement, and maintained Q 15min safety checks. Response : Received pt. sleeping in bed at the beginning of the shift, he awoke and attended breakfast in the Group Room, and afterwards remained up interacting appropriately with others. He was observed to be drawing pictures and when questioned regarding these stated, "I"m drawing a clown with a José Luis Lecter mask and a straight kathia." Later, pt. requested that this promotion writer promotion writer down some telephone numbers for sober living facilities in [place]. Upon further questioning by this promotion writer, pt. reports he is hoping to be transferred to [place], [place], or out of the [facility] depending on what happens with the courts. Pt. remains guarded with conversation regarding mental health and denies all mental health s/s, he does not appear to be responding to internal stimuli. Plan : Pt. continues to require a safe and supportive environment and is awaiting placement.
[2023-05-16 19:00] VITALS: BP 119/86; PULSE 89; RESP 18; TEMP 97.2; O2SAT 94
[2023-05-16 19:25] VITALS: RESP 18; O2SAT 94
[2023-05-16] MEDS: quetiapine 100mg tablet PO SCH (20:05)
[2023-05-16] MEDS: Melatonin 3mg tablet PO SCH (20:05)
[2023-05-16] MEDS: mirtazapine 15mg tablet PO SCH (20:05)
[2023-05-17] MEDS: NICOTINE POLACRILEX 2 MG LOZENGE BC PRN ×4 (03:22→18:17)
--- NOTE | 2023-05-17 05:23 | NUR ---
Nursing Progress Note: Problem : Pt admitted on 5150 for DTO from our ER. Pt reported that he constantly has thoughts of killing people. He does not know where he can live. He is homeless, does not eat and not wearing shoes. Pt has history of Schizophrenia; Bipolar; Anxiety; & Antisocial. Interventions : Maintained a safe and supportive environment, ensured contract for safety, provided clear and simple instructions, attempted to orient to reality, provided active listening and positive encouragement, and maintained Q 15min safety checks. Response : Upon turn of shift noted patient in room talking on the phone. Call ended shortly after entering room. Patient denies any MH s/sx. During 1:1 assessment patient noticed his roommate attempting to do pull-ups on the door and he quickly went to assist him. Returned to nurse and finished chatting. Denies any needs. We discussed his appreciation for rap and how to properly rap by creating a story that rhymes. Fist bumped nurse and said, thank you. Was out and about socializing with cohorts ad staff. Noted him briefly hug a male cohort at one point. Compliant with HS meds. Changed his diet back to Regular per patient request. PRN Nicotine lozenge x 2 this shift. Slept well. Will continue to monitor. Plan : Pt. continues to require a safe and supportive environment and is awaiting placement.
[2023-05-17 07:00] VITALS: RESP 18; O2SAT 97
[2023-05-17 08:00] VITALS: BP 151/62; PULSE 89; RESP 18; TEMP 96.8; O2SAT 97
[2023-05-17] MEDS: sennosides/docusate sodium tablet PO SCH ×2 (08:11→20:27)
[2023-05-17] MEDS: LORazepam 0.5 MG tablet PO SCH ×3 (08:11→20:24)
[2023-05-17] MEDS: busPIRone 5mg tablet PO SCH ×3 (08:11→15:25)
[2023-05-17] MEDS: multivitamins, therapeutics tablet PO SCH (08:12)
[2023-05-17] MEDS: buPROPion 75mg tablet PO SCH (08:12)
[2023-05-17] MEDS: olanzapine 10mg tablet PO SCH (08:12)
[2023-05-17] MEDS: buprenorphine/naloxone 2-0.5mg sublingual tablet SL SCH ×2 (08:12→17:57)
[2023-05-17] MEDS: clotrimazole topical cream 15gm tube TP SCH ×2 (08:12→20:26)
[2023-05-17] MEDS: QUEtiapine 25mg tablet PO SCH ×3 (08:12→15:26)
[2023-05-17] MEDS: quetiapine 100mg tablet PO PRN (09:23)
[2023-05-17] MEDS: LORazepam 1 MG tablet PO SCH (12:25)
--- NOTE | 2023-05-17 16:24 | NUR ---
Nursing Progress Note: Problem : Pt admitted on 5150 for DTO from our ER. Pt reported that he constantly has thoughts of killing people. He does not know where he can live. He is homeless, does not eat and not wearing shoes. Pt has history of Schizophrenia; Bipolar; Anxiety; & Antisocial. Interventions : Maintained a safe and supportive environment, ensured contract for safety, provided clear and simple instructions, attempted to orient to reality, provided active listening and positive encouragement, and maintained Q 15min safety checks. Response : Received pt. sleeping in bed at the beginning of the shift, he awoke and attended breakfast in the Group Room, and afterwards remained up interacting appropriately with others. Pt. remains guarded with conversation regarding mental health and denies all mental health s/s, he does not appear to be responding to internal stimuli. However, at approximately 0930, pt. presented with anxiety and agitation and started using multiple profanities while pacing restlessly with another peer in the hallway. He was able to be redirected and when questioned by this typewriter aligner regarding his behavior stated, "I just need to vent. I just get pissed off!" Pt. also requested PRN Seroquel and this was administered with effectiveness. Later, pt. asked this typewriter aligner about the possibility of receiving counseling services, and appears to be gaining some insight into his feelings. When questioned by this typewriter aligner if he would like to talk, pt. denied this and stated, "No, I'm just going to draw right now." Pt. later received a visit from his parents and this appeared to go well. No further episodes of anxiety or agitation were exhibited. Plan : Pt. continues to require a safe and supportive environment and is awaiting placement.
[2023-05-17 19:00] VITALS: RESP 19; O2SAT 96
[2023-05-17 19:47] VITALS: BP 125/72; PULSE 82; RESP 16; TEMP 98.3; O2SAT 96
[2023-05-17] MEDS: quetiapine 100mg tablet PO SCH (20:25)
[2023-05-17] MEDS: mirtazapine 15mg tablet PO SCH (20:25)
[2023-05-17] MEDS: Melatonin 3mg tablet PO SCH (21:00)
--- NOTE | 2023-05-18 01:15 | NUR ---
Nursing Progress Note: Problem : Pt admitted on 5150 for DTO from our ER. Pt reported that he constantly has thoughts of killing people. He does not know where he can live. He is homeless, does not eat and not wearing shoes. Pt has history of Schizophrenia; Bipolar; Anxiety; & Antisocial. Interventions : Maintained a safe and supportive environment, ensured contract for safety, provided clear and simple instructions, attempted to orient to reality, provided active listening and positive encouragement, and maintained Q 15min safety checks. Response : Pt up in lion at start of shift. Pleasant greeting included a fist bump. He is pleasant and cooperative takes all meds. Interacts pleasantly with peers. Denies SI A/V/H. Fell asleep without difficulty. Plan : Pt. continues to require a safe and supportive environment and is awaiting placement.
[2023-05-18 07:00] VITALS: RESP 15; O2SAT 97
[2023-05-18 08:00] VITALS: BP 109/55; PULSE 71; RESP 15; TEMP 97.6; O2SAT 97
[2023-05-18] MEDS: clotrimazole topical cream 15gm tube TP SCH ×2 (08:00→20:00)
[2023-05-18] MEDS: LORazepam 0.5 MG tablet PO SCH ×3 (08:52→20:42)
[2023-05-18] MEDS: buPROPion 75mg tablet PO SCH (08:52)
[2023-05-18] MEDS: busPIRone 5mg tablet PO SCH ×3 (08:52→16:06)
[2023-05-18] MEDS: olanzapine 10mg tablet PO SCH (08:52)
[2023-05-18] MEDS: buprenorphine/naloxone 2-0.5mg sublingual tablet SL SCH ×2 (08:53→17:38)
[2023-05-18] MEDS: NICOTINE POLACRILEX 2 MG LOZENGE BC PRN ×4 (08:53→23:26)
[2023-05-18] MEDS: multivitamins, therapeutics tablet PO SCH (08:53)
[2023-05-18] MEDS: QUEtiapine 25mg tablet PO SCH ×3 (08:53→16:07)
[2023-05-18] MEDS: sennosides/docusate sodium tablet PO SCH ×2 (08:53→20:42)
[2023-05-18] MEDS: LORazepam 1 MG tablet PO SCH (11:54)
--- NOTE | 2023-05-18 15:15 | NUR ---
Nursing Progress Note: Problem : Pt admitted on 5150 for DTO from our ER. Pt reported that he constantly has thoughts of killing people. He does not know where he can live. He is homeless, does not eat and not wearing shoes. Pt has history of Schizophrenia; Bipolar; Anxiety; & Antisocial. Interventions : Maintained a safe and supportive environment, ensured contract for safety, provided clear and simple instructions, attempted to orient to reality, provided active listening and positive encouragement, and maintained Q 15min safety checks. Response : Received pt. asleep at change of shift, pt. awoke for breakfast. 1:1 done at bedside and medications administered with no issues. Pt endorses A/VH stating, I have them every now and then. Pt denies SI/HI stating, not at the moment. Pt states he slept fine. Pt states he had a bad day yesterday but feels better today. Pt has been seen drawing and napping intermittently throughout the day. Plan : Pt. continues to require a safe and supportive environment and is awaiting placement.
[2023-05-18 19:00] VITALS: RESP 18; O2SAT 99
[2023-05-18 20:00] VITALS: BP 121/88; PULSE 66; RESP 18; TEMP 97.3; O2SAT 100
[2023-05-18] MEDS: mirtazapine 15mg tablet PO SCH (20:42)
[2023-05-18] MEDS: quetiapine 100mg tablet PO SCH (20:42)
[2023-05-18] MEDS: Melatonin 3mg tablet PO SCH (20:42)
[2023-05-18] MEDS: quetiapine 100mg tablet PO PRN (23:26)
--- NOTE | 2023-05-19 04:05 | NUR ---
Nursing Progress Note: Problem : Pt admitted on 5150 for DTO from our ER. Pt reported that he constantly has thoughts of killing people. He does not know where he can live. He is homeless, does not eat and not wearing shoes. Pt has history of Schizophrenia; Bipolar; Anxiety; & Antisocial. Interventions : Maintained a safe and supportive environment, ensured contract for safety, provided clear and simple instructions, attempted to orient to reality, provided active listening and positive encouragement, and maintained Q 15min safety checks. Response : Pt utilizing phone at change of shift. 1:1 done at bedside and medications administered with no issues. Pt continues to endorse A/VH, denies SI/HI. Pt attended dinner but spent the first half of the shift in his bed lying quietly but awake. PRN Seroquel administered per pt. request at 2330 for insomnia. Pt slept till 0340 when he approached nurses station to tell a joke and request water. Pt then returned to bed. Plan : Pt. continues to require a safe and supportive environment and is awaiting placement.
[2023-05-19 07:30] VITALS: RESP 16; O2SAT 100
[2023-05-19 08:00] VITALS: BP 119/55; PULSE 72; RESP 16; TEMP 96.9; O2SAT 100
[2023-05-19] MEDS: clotrimazole topical cream 15gm tube TP SCH ×2 (08:00→20:00)
[2023-05-19] MEDS: LORazepam 0.5 MG tablet PO SCH ×3 (08:25→20:13)
[2023-05-19] MEDS: sennosides/docusate sodium tablet PO SCH ×2 (08:25→20:13)
[2023-05-19] MEDS: buprenorphine/naloxone 2-0.5mg sublingual tablet SL SCH ×2 (08:25→16:38)
[2023-05-19] MEDS: QUEtiapine 25mg tablet PO SCH ×3 (08:25→16:38)
[2023-05-19] MEDS: busPIRone 5mg tablet PO SCH ×3 (08:25→16:38)
[2023-05-19] MEDS: olanzapine 10mg tablet PO SCH (08:25)
[2023-05-19] MEDS: buPROPion 75mg tablet PO SCH (08:25)
[2023-05-19] MEDS: multivitamins, therapeutics tablet PO SCH (08:25)
[2023-05-19] MEDS: NICOTINE POLACRILEX 2 MG LOZENGE BC PRN ×3 (08:47→17:25)
[2023-05-19] MEDS: LORazepam 1 MG tablet PO SCH (12:30)
--- NOTE | 2023-05-19 17:16 | NUR ---
Nursing Progress Note: Problem : Pt admitted on 5150 for DTO from our ER with thoughts to hurt others. He does not know where he can live. He is homeless, does not eat and not wearing shoes. Pt has history of Schizophrenia; Bipolar; Anxiety; & Antisocial. Interventions : Maintained a safe and supportive environment, ensured contract for safety, provided clear and simple instructions, attempted to orient to reality, provided active listening and positive encouragement, and maintained Q 15min safety checks. Response : RN received Pt. asleep in bed at start of shift, pt. awoke for breakfast and took all medications. Pt. went back to sleep. Pt. isolated to his room most of the day, frequently found asleep. During 1:1 pt. gives minimal information for RNs questions, denies, SI/HI, A/V hallucinations. In the evening pt. was observed pacing the unit and listening to headphones. Pt. is social with peers. Plan : Pt. continues to require a safe and supportive environment and is awaiting placement.
[2023-05-19 19:00] VITALS: RESP 16; O2SAT 98
[2023-05-19] MEDS: Melatonin 3mg tablet PO SCH (20:12)
[2023-05-19] MEDS: mirtazapine 15mg tablet PO SCH (20:13)
[2023-05-19] MEDS: quetiapine 100mg tablet PO SCH (20:13)
[2023-05-19 20:19] VITALS: BP 120/69; PULSE 83; RESP 16; TEMP 97.6; O2SAT 98
--- NOTE | 2023-05-20 03:16 | NUR ---
Nursing Progress Note: Problem : Pt admitted on 5150 for DTO from our ER with thoughts to hurt others. He does not know where he can live. He is homeless, does not eat and not wearing shoes. Pt has history of Schizophrenia; Bipolar; Anxiety; & Antisocial. Interventions : Maintained a safe and supportive environment, ensured contract for safety, provided clear and simple instructions, attempted to orient to reality, provided active listening and positive encouragement, and maintained Q 15min safety checks. Response : Patient is pleasant and cooperative with care; compliant with medication. He denied SI, HI, A/VH; no apparent delusions expressed this shift and did not appear to be responding to IS. Patient is social with staff and peers; participated in HS snack prior to bed. He is observed sleeping and does not appear to be having difficulty. Plan : Pt. continues to require a safe and supportive environment and is awaiting placement.
--- NOTE | 2023-05-20 05:08 | NUR ---
ROLL WEIGHER documentation: I have reviewed and agree with all interventions, assessments performed and documented by Sandra Ambriz LVN.
[2023-05-20 07:30] VITALS: BP 124/73; PULSE 72; RESP 16; TEMP 98.2; O2SAT 97
[2023-05-20] MEDS: busPIRone 5mg tablet PO SCH ×3 (07:46→16:08)
[2023-05-20] MEDS: olanzapine 10mg tablet PO SCH (07:46)
[2023-05-20] MEDS: buPROPion 75mg tablet PO SCH (07:46)
[2023-05-20] MEDS: buprenorphine/naloxone 2-0.5mg sublingual tablet SL SCH ×2 (07:47→17:04)
[2023-05-20] MEDS: multivitamins, therapeutics tablet PO SCH (07:47)
[2023-05-20] MEDS: sennosides/docusate sodium tablet PO SCH ×2 (07:47→21:04)
[2023-05-20] MEDS: LORazepam 0.5 MG tablet PO SCH ×3 (07:47→21:04)
[2023-05-20] MEDS: QUEtiapine 25mg tablet PO SCH ×3 (07:47→16:08)
[2023-05-20] MEDS: clotrimazole topical cream 15gm tube TP SCH ×2 (08:00→20:00)
[2023-05-20] MEDS: NICOTINE POLACRILEX 2 MG LOZENGE BC PRN ×4 (12:00→23:55)
[2023-05-20] MEDS: LORazepam 1 MG tablet PO SCH (12:00)
--- NOTE | 2023-05-20 17:32 | NUR ---
Nursing Progress Note: Problem : Pt admitted on 5150 for DTO from our ER with thoughts to hurt others. He does not know where he can live. He is homeless, does not eat and not wearing shoes. Pt has history of Schizophrenia; Bipolar; Anxiety; & Antisocial. Interventions : Maintained a safe and supportive environment, ensured contract for safety, provided clear and simple instructions, attempted to orient to reality, provided active listening and positive encouragement, and maintained Q 15min safety checks. Response : RN received Pt. asleep in bed at start of shift, pt. awoke for breakfast and took all medications. Pt. went back to sleep and slept until mid-morning. Pt. denies SI/HI, A/V hallucinations. Pt. social with peers and staff, observed pacing on the unit. In afternoon pt. isolated to his room until the evening and again was observed socializing with peers. Plan : Pt. continues to require a safe and supportive environment and is awaiting placement.
[2023-05-20 19:00] VITALS: BP 146/74; PULSE 91; RESP 16; TEMP 97.4; O2SAT 97
[2023-05-20] MEDS: quetiapine 100mg tablet PO SCH (21:04)
[2023-05-20] MEDS: Melatonin 3mg tablet PO SCH (21:04)
[2023-05-20] MEDS: mirtazapine 15mg tablet PO SCH (21:04)
[2023-05-21] MEDS: quetiapine 100mg tablet PO PRN (00:49)
--- NOTE | 2023-05-21 05:11 | NUR ---
Nursing Progress Note:DC Problem : Pt admitted on 5150 for DTO from our ER with thoughts to hurt others. He does not know where he can live. He is homeless, does not eat and not wearing shoes. Pt has history of Schizophrenia; Bipolar; Anxiety; & Antisocial. Interventions : Maintained a safe and supportive environment, ensured contract for safety, provided clear and simple instructions, attempted to orient to reality, provided active listening and positive encouragement, and maintained Q 15min safety checks. Response : Steam Table Associate received patient ambulating in hallway. Pt stated he had a good day. Pt minimally social as compared to other days in which he has a plethora of things to say. Pt listening to headphones and went to bed early. Pt compliant with all medications. Pt accessed PRN Nicotine lozenge during shift. Pt. denies SI/HI, A/V hallucinations. Pt woke up 2x around 0000-0050hrs. Pt accepted PRN Seroquel for insomnia. Pt sleep was fair to poor. Plan : Pt. continues to require a safe and supportive environment and is awaiting placement.
[2023-05-21 07:00] VITALS: RESP 16; O2SAT 97
[2023-05-21 07:19] VITALS: BP 119/50; PULSE 66; RESP 16; TEMP 98.3; O2SAT 97
[2023-05-21] MEDS: busPIRone 5mg tablet PO SCH ×3 (07:59→16:46)
[2023-05-21] MEDS: buPROPion 75mg tablet PO SCH (07:59)
[2023-05-21] MEDS: olanzapine 10mg tablet PO SCH (08:00)
[2023-05-21] MEDS: sennosides/docusate sodium tablet PO SCH ×2 (08:00→20:22)
[2023-05-21] MEDS: QUEtiapine 25mg tablet PO SCH ×3 (08:00→16:47)
[2023-05-21] MEDS: clotrimazole topical cream 15gm tube TP SCH ×2 (08:00→20:23)
[2023-05-21] MEDS: buprenorphine/naloxone 2-0.5mg sublingual tablet SL SCH ×2 (08:01→16:47)
[2023-05-21] MEDS: LORazepam 0.5 MG tablet PO SCH ×3 (08:01→20:22)
[2023-05-21] MEDS: multivitamins, therapeutics tablet PO SCH (08:01)
--- NOTE | 2023-05-21 08:24 | NUR ---
F/u 05/21: Pt returned to regular diet 05/17 PO 100% avg meals receiving double protein TID though not specified in new diet order; dietary notified will send double eggs WB for satiety. Pt meeting estimated needs at this time. LBM 05/19 per EMR. No nutrition interventions. Will continue to follow. Recommendations: 1. Continue regular diet; double eggs WB for satiety 2. Routine bowel care 3. Weekly scaled wts Addendum: 05/21/23 at [address] Amended: Links added.
[2023-05-21] MEDS: LORazepam 1 MG tablet PO SCH (12:20)
--- NOTE | 2023-05-21 16:00 | NUR ---
Nursing Progress Note:DC Problem : Pt admitted on 5150 for DTO from our ER with thoughts to hurt others. He does not know where he can live. He is homeless, does not eat and not wearing shoes. Pt has history of Schizophrenia; Bipolar; Anxiety; & Antisocial. Interventions : Maintained a safe and supportive environment, ensured contract for safety, provided clear and simple instructions, attempted to orient to reality, provided active listening and positive encouragement, and maintained Q 15min safety checks. Response :Patient was found sleeping at beginning of shift. Patient got up to participate in breakfast and returned to bedroom. Patient took medications without difficulty and began pacing halls and socializing with other patients. It wasn't long before patient was back in bed. Patient was cooperative with care and was not seen responding to internal stimuli this shift. Plan : Pt. continues to require a safe and supportive environment and is awaiting placement. Addendum: 05/21/23 at 1752 by Eleazar Farr) DARREL SAP BUSINESS OBJECTS CONSULTANT documentation: I have reviewed and agree with all interventions, assessments performed and documented by ZACHARY.
[2023-05-21] MEDS: NICOTINE POLACRILEX 2 MG LOZENGE BC PRN (18:17)
[2023-05-21 19:00] VITALS: BP 118/77; PULSE 77; RESP 16; TEMP 97.3; O2SAT 98
[2023-05-21 19:10] VITALS: RESP 16; O2SAT 98
[2023-05-21] MEDS: mirtazapine 15mg tablet PO SCH (20:23)
[2023-05-21] MEDS: quetiapine 100mg tablet PO SCH (20:23)
[2023-05-21] MEDS: Melatonin 3mg tablet PO SCH (20:23)
--- NOTE | 2023-05-22 02:05 | NUR ---
Nursing Progress Note: Chan Problem : Pt admitted on 5150 for DTO from our ER with thoughts to hurt others. He does not know where he can live. He is homeless, does not eat and not wearing shoes. Pt has history of Schizophrenia; Bipolar; Anxiety; & Antisocial. Interventions : Maintained a safe and supportive environment, ensured contract for safety, provided clear and simple instructions, attempted to orient to reality, provided active listening and positive encouragement, and maintained Q 15min safety checks. Response : Received report from AM shift. Pt in bed at beginning of shift. Pt reported feeling okay today. Pt cooperative and compliant took med with no issues noted. Pt walking around socializing, participated in snacks. Pt went to bed early. Pt. denies SI/HI, A/V hallucinations. Plan : Pt. continues to require a safe and supportive environment and is awaiting placement.
[2023-05-22 07:00] VITALS: BP 110/58; PULSE 68; RESP 18; TEMP 97.3; O2SAT 95
[2023-05-22] MEDS: clotrimazole topical cream 15gm tube TP SCH ×2 (08:00→20:00)
[2023-05-22] MEDS: olanzapine 10mg tablet PO SCH (08:36)
[2023-05-22] MEDS: multivitamins, therapeutics tablet PO SCH (08:37)
[2023-05-22] MEDS: buPROPion 75mg tablet PO SCH (08:37)
[2023-05-22] MEDS: sennosides/docusate sodium tablet PO SCH ×2 (08:37→20:40)
[2023-05-22] MEDS: busPIRone 5mg tablet PO SCH ×3 (08:37→16:53)
[2023-05-22] MEDS: LORazepam 0.5 MG tablet PO SCH ×3 (08:38→20:40)
[2023-05-22] MEDS: QUEtiapine 25mg tablet PO SCH ×3 (08:38→16:53)
[2023-05-22] MEDS: buprenorphine/naloxone 2-0.5mg sublingual tablet SL SCH ×2 (08:38→16:53)
[2023-05-22] MEDS: LORazepam 1 MG tablet PO SCH (12:21)
--- NOTE | 2023-05-22 14:55 | NUR ---
Sent updated notes to [place] office (05/15-05/21) for placement. MARIA LUISA Villeda
--- NOTE | 2023-05-22 16:15 | NUR ---
Nursing Progress Note: Chan Problem : Pt admitted on 5150 for DTO from our ER with thoughts to hurt others. He does not know where he can live. He is homeless, does not eat and not wearing shoes. Pt has history of Schizophrenia; Bipolar; Anxiety; & Antisocial. Interventions : Maintained a safe and supportive environment, ensured contract for safety, provided clear and simple instructions, attempted to orient to reality, provided active listening and positive encouragement, and maintained Q 15min safety checks. Response : Patient was found sleeping at change of shift. Patient got up to participate in breakfast and returned to bed. Patient spent majority of shift in bed sleeping except for coming out for meals or to ask for a nicotine lozenge. Patient was cooperative with care and was polite to other residents. Plan : Pt. continues to require a safe and supportive environment and is awaiting placement.
[2023-05-22] MEDS: NICOTINE POLACRILEX 2 MG LOZENGE BC PRN ×2 (17:19→19:20)
[2023-05-22 19:00] VITALS: RESP 20; O2SAT 97
[2023-05-22 20:00] VITALS: BP 127/76; PULSE 72; RESP 20; TEMP 98; O2SAT 97
[2023-05-22] MEDS: mirtazapine 15mg tablet PO SCH (20:40)
[2023-05-22] MEDS: quetiapine 100mg tablet PO SCH (20:40)
[2023-05-22] MEDS: Melatonin 3mg tablet PO SCH (20:41)
[2023-05-23] MEDS: NICOTINE POLACRILEX 2 MG LOZENGE BC PRN ×4 (01:10→21:05)
[2023-05-23] MEDS: quetiapine 100mg tablet PO PRN ×2 (01:35→21:27)
--- NOTE | 2023-05-23 05:36 | NUR ---
Nursing Progress Note:DC Problem : Pt admitted on 5150 for DTO from our ER with thoughts to hurt others. He does not know where he can live. He is homeless, does not eat and not wearing shoes. Pt has history of Schizophrenia; Bipolar; Anxiety; & Antisocial. Interventions : Maintained a safe and supportive environment, ensured contract for safety, provided clear and simple instructions, attempted to orient to reality, provided active listening and positive encouragement, and maintained Q 15min safety checks. Response : Tie Tape Machine Operator greeted patient in recreation room. Pt pleasant. States Im good. He is continuing to work toward having a dinner with his parents on the patio. He has no issues. Pt engaged in small talk. Pt stated he has been tired possibly due to Suboxone. His Suboxone dose was supposed to be increased but since he has no cravings at this time, dose is appropriate. Bowel movements are regular. Pt accessed Nicotine lozenges during shift. At approximately 0130 hours, pt awoke c/o insomnia and requesting sleep prn. Pt administered Seroquel as ordered. Medication appeared to be effective. Plan : Pt. continues to require a safe and supportive environment and is awaiting placement.
[2023-05-23 07:00] VITALS: BP 118/48; PULSE 68; RESP 16; TEMP 97.8; O2SAT 97
[2023-05-23] MEDS: clotrimazole topical cream 15gm tube TP SCH ×2 (08:00→20:00)
[2023-05-23] MEDS: QUEtiapine 25mg tablet PO SCH ×3 (08:45→16:44)
[2023-05-23] MEDS: buPROPion 75mg tablet PO SCH (08:46)
[2023-05-23] MEDS: olanzapine 10mg tablet PO SCH (08:46)
[2023-05-23] MEDS: multivitamins, therapeutics tablet PO SCH (08:48)
[2023-05-23] MEDS: LORazepam 0.5 MG tablet PO SCH ×3 (08:48→20:29)
[2023-05-23] MEDS: sennosides/docusate sodium tablet PO SCH ×2 (08:48→20:29)
[2023-05-23] MEDS: buprenorphine/naloxone 2-0.5mg sublingual tablet SL SCH ×2 (08:49→16:45)
[2023-05-23] MEDS: busPIRone 5mg tablet PO SCH ×3 (08:54→16:44)
[2023-05-23] MEDS: LORazepam 1 MG tablet PO SCH (12:12)
--- NOTE | 2023-05-23 16:01 | NUR ---
Nursing Progress Note:DC Problem : Pt admitted on 5150 for DTO from our ER with thoughts to hurt others. He does not know where he can live. He is homeless, does not eat and not wearing shoes. Pt has history of Schizophrenia; Bipolar; Anxiety; & Antisocial. Interventions : Maintained a safe and supportive environment, ensured contract for safety, provided clear and simple instructions, attempted to orient to reality, provided active listening and positive encouragement, and maintained Q 15min safety checks. Response : Patient was found sleeping at change of shift. Patient got up to participate in breakfast. Patient went right back to bed after eating. Patient spent a large portion in bed sleeping except for meals and receiving medications. Patient requested nicotine lozenge. Patient denies depression simple stats Im just tired. Plan : Pt. continues to require a safe and supportive environment and is awaiting placement. Addendum: 05/23/23 at 1737 by Eleazar Farr) DARREL ROLL WRAPPER documentation: I have reviewed and agree with all interventions, assessments performed and documented by ROLL WRAPPER.
[2023-05-23 20:00] VITALS: BP 116/52; PULSE 76; RESP 20; TEMP 97.7; O2SAT 95
[2023-05-23] MEDS: quetiapine 100mg tablet PO SCH (20:29)
[2023-05-23] MEDS: mirtazapine 15mg tablet PO SCH (20:29)
[2023-05-23] MEDS: Melatonin 3mg tablet PO SCH (20:30)
--- NOTE | 2023-05-24 00:30 | NUR ---
Nursing Progress Note: Chan Problem : Pt admitted on 5150 for DTO from our ER with thoughts to hurt others. He does not know where he can live. He is homeless, does not eat and not wearing shoes. Pt has history of Schizophrenia; Bipolar; Anxiety; & Antisocial. Interventions : Maintained a safe and supportive environment, ensured contract for safety, provided clear and simple instructions, attempted to orient to reality, provided active listening and positive encouragement, and maintained Q 15min safety checks. Response : Patient was up on the unit pacing from the community room to rec room, watching TV with peers, pt polite and pleasant. Pt was observed sleeping for a while. Pt participated in snacks and took all HS medications. Provided pt with PRN nicotine lozenge and 100MG Seroquel for sleep. Plan : Pt. continues to require a safe and supportive environment and is awaiting placement.
[2023-05-24] MEDS: NICOTINE POLACRILEX 2 MG LOZENGE BC PRN ×4 (02:39→20:30)
[2023-05-24] MEDS: buPROPion 75mg tablet PO SCH (07:42)
[2023-05-24] MEDS: multivitamins, therapeutics tablet PO SCH (07:42)
[2023-05-24] MEDS: olanzapine 10mg tablet PO SCH (07:42)
[2023-05-24] MEDS: sennosides/docusate sodium tablet PO SCH ×2 (07:42→20:30)
[2023-05-24] MEDS: buprenorphine/naloxone 2-0.5mg sublingual tablet SL SCH ×2 (07:43→16:11)
[2023-05-24] MEDS: busPIRone 5mg tablet PO SCH ×3 (07:43→16:12)
[2023-05-24] MEDS: QUEtiapine 25mg tablet PO SCH ×3 (07:43→16:12)
[2023-05-24] MEDS: LORazepam 0.5 MG tablet PO SCH ×3 (07:43→20:30)
[2023-05-24] MEDS: clotrimazole topical cream 15gm tube TP SCH ×2 (07:44→20:00)
[2023-05-24 08:00] VITALS: BP 106/56; PULSE 71; RESP 16; TEMP 97.6; O2SAT 96
[2023-05-24] MEDS: LORazepam 1 MG tablet PO SCH (12:44)
--- NOTE | 2023-05-24 15:52 | NUR ---
Nursing Progress Note:DC Problem: Pt admitted on 5149 for DTO from our ER with thoughts to hurt others. He does not know where he can live. He is homeless, does not eat and not wearing shoes. Pt has history of Schizophrenia; Bipolar; Anxiety; & Antisocial. Interventions: Provided 1:1 assessment with therapeutic communication and active listening; medication administration/education/monitoring; provided clear and simple instructions, attempted to orient to reality, provided active listening and positive encouragement, and maintained Q 15min safety checks. Response: Patient was found sleeping at change of shift. Patient got up to participate in breakfast. Patient went right back to bed after eating. Patient spent a large portion in bed sleeping except for meals and receiving medications. Patient requested nicotine lozenge. Patient denies depression simple stats Im just tired. Plan : Pt. continues to require a safe and supportive environment and is awaiting placement. Addendum: 05/24/23 at 1642 by Kamilla Meneses RN Problems with computer DC this note
--- NOTE | 2023-05-24 15:59 | NUR ---
Nursing Progress Note:DC Problem: Pt admitted on 5150 for DTO from our ER with thoughts to hurt others. He does not know where he can live. He is homeless, does not eat and not wearing shoes. Pt has history of Schizophrenia; Bipolar; Anxiety; & Antisocial. Interventions: Provided 1:1 assessment with therapeutic communication and active listening; medication administration/education/monitoring; provided clear and simple instructions, attempted to orient to reality, provided active listening and positive encouragement, and maintained Q 15min safety checks. Response: Patient was found sleeping at change of shift. Pt cooperative with medication administration and 1:1 assessment. During med pass pt states, "I'm missing an orange pill." After education and demonstration he accepted that his medications were correct. Patient requested nicotine lozenge. He slept in the afternoon for a few hours. Plan: Pt. continues to require a safe and supportive environment and is awaiting placement.
[2023-05-24 20:00] VITALS: BP 99/51; PULSE 67; RESP 16; TEMP 97.7; O2SAT 95
[2023-05-24] MEDS: quetiapine 100mg tablet PO SCH (20:30)
[2023-05-24] MEDS: mirtazapine 15mg tablet PO SCH (20:30)
[2023-05-24] MEDS: Melatonin 3mg tablet PO SCH (21:09)
[2023-05-24] MEDS: quetiapine 100mg tablet PO PRN (21:36)
--- NOTE | 2023-05-25 00:54 | NUR ---
Nursing Progress Note: DC Problem: Pt admitted on 5150 for DTO from our ER with thoughts to hurt others. He does not know where he can live. He is homeless, does not eat and not wearing shoes. Pt has history of Schizophrenia; Bipolar; Anxiety; & Antisocial. Interventions: Provided 1:1 assessment with therapeutic communication and active listening; medication administration/education/monitoring; provided clear and simple instructions, attempted to orient to reality, provided active listening and positive encouragement, and maintained Q 15min safety checks. Response: Patient was found sleeping at change of shift. Pt refused dinner. Pt woke up at snack time, participates in snacks and requests nicotine lozenge with HS medications. PT states he skipped dinner because he was tired and wanted to sleep. Pt cooperative with medication administration and 1:1 assessment. Pt watched TV in rec room until bedtime. Plan: Pt. continues to require a safe and supportive environment and is awaiting placement.
[2023-05-25 07:00] VITALS: RESP 15; O2SAT 96
[2023-05-25] MEDS: olanzapine 10mg tablet PO SCH (07:34)
[2023-05-25] MEDS: QUEtiapine 25mg tablet PO SCH ×3 (07:34→16:46)
[2023-05-25] MEDS: buprenorphine/naloxone 2-0.5mg sublingual tablet SL SCH ×2 (07:35→16:46)
[2023-05-25] MEDS: buPROPion 75mg tablet PO SCH (07:35)
[2023-05-25] MEDS: busPIRone 5mg tablet PO SCH ×3 (07:35→16:46)
[2023-05-25] MEDS: NICOTINE POLACRILEX 2 MG LOZENGE BC PRN ×4 (07:35→19:44)
[2023-05-25] MEDS: sennosides/docusate sodium tablet PO SCH ×2 (07:35→20:21)
[2023-05-25] MEDS: multivitamins, therapeutics tablet PO SCH (07:35)
[2023-05-25] MEDS: LORazepam 0.5 MG tablet PO SCH ×3 (07:35→20:21)
[2023-05-25 08:00] VITALS: BP 107/62; PULSE 56; RESP 18; TEMP 98.2; O2SAT 98
[2023-05-25] MEDS: clotrimazole topical cream 15gm tube TP SCH ×2 (08:00→20:00)
[2023-05-25] MEDS: LORazepam 1 MG tablet PO SCH (11:30)
--- NOTE | 2023-05-25 14:56 | NUR ---
CASE MANAGEMENT Called Anabell at [facility] to advocate for them to accept Chan. Provided verbal update on his progress. She reported she had received updated notes and will have the signals analyst review them. MARIA LUISA Villeda
--- NOTE | 2023-05-25 16:20 | NUR ---
Nursing Progress Note: Chan Problem: Pt admitted on 5150 for DTO from our ER with thoughts to hurt others. He does not know where he can live. He is homeless, does not eat and not wearing shoes. Pt has history of Schizophrenia; Bipolar; Anxiety; & Antisocial. Interventions: Provided 1:1 assessment with therapeutic communication and active listening; medication administration/education/monitoring; provided clear and simple instructions, attempted to orient to reality, provided active listening and positive encouragement, and maintained Q 15min safety checks. Response: Patient requested nicotine lozenge and coffee at change of shift this morning. Patient is pleasant and cooperative this shift; remains compliant with medication. Patient up for meals/snacks and group but often will retreat back to his room to rest. He is observed socializing with peers in the lion and listening to headphones. PRN nicotine lozenge requested throughout the day. Patient denies SI/HI/AVH. Plan: Pt. continues to require a safe and supportive environment and is awaiting placement.
--- NOTE | 2023-05-25 17:55 | NUR ---
CONTRACT ENGINEER documentation: I have reviewed all interventions and assessments performed and documented by ZACHARY Liu.
[2023-05-25 19:00] VITALS: RESP 16
[2023-05-25 20:13] VITALS: BP 124/78; PULSE 87; RESP 16; TEMP 98.2; O2SAT 98
[2023-05-25] MEDS: Melatonin 3mg tablet PO SCH (20:21)
[2023-05-25] MEDS: mirtazapine 15mg tablet PO SCH (20:21)
[2023-05-25] MEDS: quetiapine 100mg tablet PO SCH (20:22)
--- NOTE | 2023-05-26 00:56 | NUR ---
Nursing Progress Note: Chan Problem: Pt admitted on 5150 for DTO from our ER with thoughts to hurt others. He does not know where he can live. He is homeless, does not eat and not wearing shoes. Pt has history of Schizophrenia; Bipolar; Anxiety; & Antisocial. Interventions: Provided 1:1 assessment with therapeutic communication and active listening; medication administration/education/monitoring; provided clear and simple instructions, attempted to orient to reality, provided active listening and positive encouragement, and maintained Q 15min safety checks. Response: Patient is up in community room playing a board game with peers. Patient is pleasant and cooperative this shift; remains compliant with medication. He is observed socializing with peers. PRN nicotine lozenge requested. PT watched TV in rec room before bedtime. Patient denies SI/HI/AVH. Plan: Pt. continues to require a safe and supportive environment and is awaiting placement.
[2023-05-26 07:00] VITALS: RESP 16; O2SAT 98
[2023-05-26] MEDS: olanzapine 10mg tablet PO SCH (07:54)
[2023-05-26] MEDS: QUEtiapine 25mg tablet PO SCH ×3 (07:54→16:59)
[2023-05-26] MEDS: buprenorphine/naloxone 2-0.5mg sublingual tablet SL SCH ×2 (07:55→16:59)
[2023-05-26] MEDS: busPIRone 5mg tablet PO SCH ×3 (07:55→17:00)
[2023-05-26] MEDS: NICOTINE POLACRILEX 2 MG LOZENGE BC PRN ×5 (07:55→21:07)
[2023-05-26] MEDS: sennosides/docusate sodium tablet PO SCH ×2 (07:55→20:44)
[2023-05-26] MEDS: LORazepam 0.5 MG tablet PO SCH ×3 (07:55→20:43)
[2023-05-26] MEDS: buPROPion 75mg tablet PO SCH (07:55)
[2023-05-26 07:59] VITALS: BP 127/61; PULSE 72; RESP 16; TEMP 98.5; O2SAT 98
[2023-05-26] MEDS: clotrimazole topical cream 15gm tube TP SCH ×2 (08:00→20:00)
[2023-05-26] MEDS: magnesium hydroxide 30ml (MOM) UD suspension PO PRN (09:13)
[2023-05-26] MEDS: multivitamins, therapeutics tablet PO SCH (09:13)
[2023-05-26] MEDS: LORazepam 1 MG tablet PO SCH (12:26)
--- NOTE | 2023-05-26 16:56 | NUR ---
Nursing Progress Note: Chan Problem: Pt admitted on 5150 for DTO from our ER with thoughts to hurt others. He does not know where he can live. He is homeless, does not eat and not wearing shoes. Pt has history of Schizophrenia; Bipolar; Anxiety; & Antisocial. Interventions: Provided 1:1 assessment with therapeutic communication and active listening; medication administration/education/monitoring; provided clear and simple instructions, attempted to orient to reality, provided active listening and positive encouragement, and maintained Q 15min safety checks. Response: Received patient resting in bed at change of shift. Patient is pleasant and cooperative; he remains compliant with medication. PRN nicotine lozenge requested, MOM administered per patient request with good effect. Patient is observed socializing with peers in the lion and community room. He appears to enjoy listening to headphones. Patient denies SI/HI but he does endorse audio hallucinations, I always hear things, meds keep me calm. Patient was short in conversation and guarded, he did not want to discuss this further. He denies visual hallucinations at this time. Plan: Pt. continues to require a safe and supportive environment and is awaiting placement.
--- NOTE | 2023-05-26 17:22 | NUR ---
TYPE PROOF REPRODUCER documentation: I have reviewed all interventions and assessments performed and documented by ZACHARY Liu.
[2023-05-26 19:44] VITALS: BP 129/66; PULSE 82; RESP 18; TEMP 97.5; O2SAT 97
[2023-05-26] MEDS: mirtazapine 15mg tablet PO SCH (20:43)
[2023-05-26] MEDS: Melatonin 3mg tablet PO SCH (20:43)
[2023-05-26] MEDS: quetiapine 100mg tablet PO SCH (20:44)
--- NOTE | 2023-05-26 22:55 | NUR ---
Nursing Progress Note: Chan Problem: Pt admitted on 5150 for DTO from our ER with thoughts to hurt others. He does not know where he can live. He is homeless, does not eat and not wearing shoes. Pt has history of Schizophrenia; Bipolar; Anxiety; & Antisocial. Interventions: Provided 1:1 assessment with therapeutic communication and active listening; medication administration/education/monitoring; provided clear and simple instructions, attempted to orient to reality, provided active listening and positive encouragement, and maintained Q 15min safety checks. Response: Received patient up on the unit socializing with peers and staff. He denied SI, HI, A/VH; no apparent delusions expressed this shift and did not appear to be responding to IS, participated in HS snack prior to bed. Pt medication compliant. He is observed sleeping and does not appear to be having difficulty. Plan: Pt. continues to require a safe and supportive environment and is awaiting placement.
[2023-05-27] MEDS: NICOTINE POLACRILEX 2 MG LOZENGE BC PRN ×3 (01:42→20:10)
[2023-05-27 07:00] VITALS: RESP 18; O2SAT 95
[2023-05-27 08:00] VITALS: BP 126/65; PULSE 67; RESP 18; TEMP 97.7; O2SAT 95
[2023-05-27] MEDS: multivitamins, therapeutics tablet PO SCH (08:04)
[2023-05-27] MEDS: LORazepam 0.5 MG tablet PO SCH ×3 (08:04→20:10)
[2023-05-27] MEDS: olanzapine 10mg tablet PO SCH (08:04)
[2023-05-27] MEDS: QUEtiapine 25mg tablet PO SCH ×3 (08:04→16:56)
[2023-05-27] MEDS: sennosides/docusate sodium tablet PO SCH ×2 (08:04→20:09)
[2023-05-27] MEDS: buPROPion 75mg tablet PO SCH (08:04)
[2023-05-27] MEDS: busPIRone 5mg tablet PO SCH ×3 (08:04→16:56)
[2023-05-27] MEDS: buprenorphine/naloxone 2-0.5mg sublingual tablet SL SCH ×2 (08:04→16:56)
[2023-05-27] MEDS: clotrimazole topical cream 15gm tube TP SCH ×2 (08:32→20:10)
[2023-05-27] MEDS: LORazepam 1 MG tablet PO SCH (12:02)
--- NOTE | 2023-05-27 16:25 | NUR ---
Nursing Progress Note: Chan Problem: Pt admitted on 5150 for DTO from our ER with thoughts to hurt others. He does not know where he can live. He is homeless, does not eat and not wearing shoes. Pt has history of Schizophrenia; Bipolar; Anxiety; & Antisocial. Interventions: Provided 1:1 assessment with therapeutic communication and active listening; medication administration/education/monitoring; provided clear and simple instructions, attempted to orient to reality, provided active listening and positive encouragement, and maintained Q 15min safety checks. Response: Patient is calm and cooperative this shift; he remains med complaint. He is observed up on the unit for meals/snacks, he did not want to attend group when prompted as he was taking a nap. When development writer inquired how he feels he stated, Im ok. Patient denies all MH symptoms. He occasionally walked the halls while listening to headphones and laughing. PRN nicotine lozenges provided. Plan: Pt. continues to require a safe and supportive environment and is awaiting placement.
--- NOTE | 2023-05-27 17:44 | NUR ---
THERMIT WELDING MACHINE OPERATOR documentation: I have reviewed and agree with all interventions, assessments performed and documented by THERMIT WELDING MACHINE OPERATOR
[2023-05-27 19:15] VITALS: RESP 14; O2SAT 97
[2023-05-27 19:45] VITALS: BP 131/61; PULSE 62; RESP 14; TEMP 98.2; O2SAT 97
[2023-05-27] MEDS: mirtazapine 15mg tablet PO SCH (20:10)
[2023-05-27] MEDS: quetiapine 100mg tablet PO SCH (20:10)
[2023-05-27] MEDS: Melatonin 3mg tablet PO SCH (20:10)
[2023-05-28] MEDS: NICOTINE POLACRILEX 2 MG LOZENGE BC PRN ×6 (04:39→20:23)
--- NOTE | 2023-05-28 05:04 | NUR ---
Nursing Progress Note: Problem: Pt admitted on 5150 for DTO from our ER with thoughts to hurt others. He does not know where he can live. He is homeless, does not eat and not wearing shoes. Pt has history of Schizophrenia; Bipolar; Anxiety; & Antisocial. Interventions: Provided 1:1 assessment with therapeutic communication and active listening; medication administration/education/monitoring; provided clear and simple instructions, attempted to orient to reality, provided active listening and positive encouragement, and maintained Q 15min safety checks. Response: Upon turn of shift noted patient sleeping on left side. Noted to be wearing street clothes. Slept up to 2000 snack time and came looking for nurse to request a nicotine lozenge. Appeared to have just woken up. Very pleasant, calm and cooperative. Fist bumps nurse as a, thank you. Compliant with HS meds. PRN nicotine lozenge x 2 given. Slept well this shift. Will continue to monitor. Plan: Pt. continues to require a safe and supportive environment and is awaiting placement.
[2023-05-28 07:00] VITALS: RESP 18; O2SAT 96
[2023-05-28 08:00] VITALS: BP 121/66; PULSE 72; RESP 18; TEMP 98.6; O2SAT 96
[2023-05-28] MEDS: LORazepam 0.5 MG tablet PO SCH ×3 (08:16→19:59)
[2023-05-28] MEDS: sennosides/docusate sodium tablet PO SCH ×2 (08:17→19:59)
[2023-05-28] MEDS: QUEtiapine 25mg tablet PO SCH ×3 (08:17→17:21)
[2023-05-28] MEDS: busPIRone 5mg tablet PO SCH ×3 (08:17→17:21)
[2023-05-28] MEDS: buPROPion 75mg tablet PO SCH (08:18)
[2023-05-28] MEDS: multivitamins, therapeutics tablet PO SCH (08:18)
[2023-05-28] MEDS: olanzapine 10mg tablet PO SCH (08:19)
[2023-05-28] MEDS: buprenorphine/naloxone 2-0.5mg sublingual tablet SL SCH ×2 (08:19→17:21)
[2023-05-28] MEDS: clotrimazole topical cream 15gm tube TP SCH ×2 (08:20→19:59)
[2023-05-28] MEDS: LORazepam 1 MG tablet PO SCH (12:42)
--- NOTE | 2023-05-28 16:38 | NUR ---
NURSING PROGRESS NOTE Problem: Pt admitted on 5150 for DTO from our ER. Pt reported that he constantly has thoughts of killing people. He does not know where he can live. He is homeless, does not eat and not wearing shoes. Pt has history of Schizophrenia; Bipolar; Anxiety; & Antisocial. Interventions: One to one to assess mood, therapeutic communication, active listening, provided clear and simple instructions, medication administration/education/monitoring, behavior monitoring and intervention as needed, positive reinforcement, reality orientation, maintained a safe and supportive environment, and Q15 minute safety checks. Response: Received Pt in bed sleeping w/o distress. He woke and was cooperative with vitals and returned to sleep. Pt woke for breakfast and took AM and all scheduled med w/o issue and used nicotine lozenges throughout the day. Overall in pleasant mood and asked for needs appropriately. Pt ate meals and snack and listened to music on headphones a lot. Pt napped in AM and in afternoon as well as watched TV. Pt denies SI/HI and AH/VHs at this time. Plan: Patient is conserved and awaiting placement in [facility] safe and therapeutic environment
[2023-05-28 19:35] VITALS: RESP 16; O2SAT 99
[2023-05-28 19:46] VITALS: BP 124/66; PULSE 71; RESP 16; TEMP 97.8; O2SAT 99
[2023-05-28] MEDS: mirtazapine 15mg tablet PO SCH (19:59)
[2023-05-28] MEDS: Melatonin 3mg tablet PO SCH (19:59)
[2023-05-28] MEDS: quetiapine 100mg tablet PO SCH (19:59)
[2023-05-28] MEDS: quetiapine 100mg tablet PO PRN (21:19)
--- NOTE | 2023-05-29 05:24 | NUR ---
NURSING PROGRESS NOTE Problem: Pt admitted on 5150 for DTO from our ER. Pt reported that he constantly has thoughts of killing people. He does not know where he can live. He is homeless, does not eat and not wearing shoes. Pt has history of Schizophrenia; Bipolar; Anxiety; & Antisocial. Interventions: One to one to assess mood, therapeutic communication, active listening, provided clear and simple instructions, medication administration/education/monitoring, behavior monitoring and intervention as needed, positive reinforcement, reality orientation, maintained a safe and supportive environment, and Q15 minute safety checks. Response: Upon turn of shift noted patient pacing back and forth in room while talking on the telephone. Noted him to have fair hygiene, wearing street clothes. Later noted patient walking halls socializing with staff and cohort. Denies SI, HI, AH and VH. No delusional statements made. Reports that his uncle and friend . This nurse gave his condolences. Reports, I want to get out of here and stay away from the drugs. Encouraged him in this choice. A few minutes later patient was seen in [facility] dancing and laughing. Compliant with HS meds. PRN Nicotine lozenge & Seroquel given. Slept well this shift. Will continue to monitor. Plan: Patient is conserved and awaiting placement in [facility] safe and therapeutic environment
[2023-05-29 07:37] VITALS: RESP 16; O2SAT 98
[2023-05-29] MEDS: busPIRone 5mg tablet PO SCH ×3 (07:56→16:36)
[2023-05-29] MEDS: olanzapine 10mg tablet PO SCH (07:57)
[2023-05-29] MEDS: buPROPion 75mg tablet PO SCH (07:57)
[2023-05-29] MEDS: multivitamins, therapeutics tablet PO SCH (07:57)
[2023-05-29] MEDS: QUEtiapine 25mg tablet PO SCH ×3 (07:57→16:36)
[2023-05-29] MEDS: sennosides/docusate sodium tablet PO SCH ×2 (07:57→20:40)
[2023-05-29] MEDS: buprenorphine/naloxone 2-0.5mg sublingual tablet SL SCH ×2 (07:57→16:36)
[2023-05-29] MEDS: NICOTINE POLACRILEX 2 MG LOZENGE BC PRN ×4 (07:57→22:36)
[2023-05-29] MEDS: LORazepam 0.5 MG tablet PO SCH ×3 (07:57→20:40)
[2023-05-29 07:59] VITALS: BP 131/73; PULSE 81; RESP 16; TEMP 97.9; O2SAT 98
[2023-05-29] MEDS: clotrimazole topical cream 15gm tube TP SCH ×2 (07:59→20:40)
[2023-05-29] MEDS: magnesium hydroxide 30ml (MOM) UD suspension PO PRN (08:49)
[2023-05-29] MEDS: LORazepam 1 MG tablet PO SCH (12:51)
--- NOTE | 2023-05-29 13:27 | NUR ---
Sent updated notes to [place] office (05/22-05/28). MARIA LUISA Villeda
--- NOTE | 2023-05-29 15:58 | NUR ---
NURSING PROGRESS NOTE Problem: Pt admitted on 5150 for DTO from our ER. Pt reported that he constantly has thoughts of killing people. He does not know where he can live. He is homeless, does not eat and not wearing shoes. Pt has history of Schizophrenia; Bipolar; Anxiety; & Antisocial. Interventions: One to one to assess mood, therapeutic communication, active listening, provided clear and simple instructions, medication administration/education/monitoring, behavior monitoring and intervention as needed, positive reinforcement, reality orientation, maintained a safe and supportive environment, and Q15 minute safety checks. Response: Upon turn of shift noted patient sleeping in bed. Slept several hours last night. Good hygiene noted wearing black street clothes and black rimmed glasses. Bright mood today. Denies SI, HI, AH and VH. Compliant with meds. PRN Nicotine lozenges & M.O.M given. Reports pebble, stool noted. Pending another BM. Patient has been socializing with staff and seen laughing out loud today. Able to make needs known. Took a nap this afternoon. No behaviors noted. Will continue to monitor. Plan: Patient is conserved and awaiting placement in [facility] safe and therapeutic environment
[2023-05-29 19:00] VITALS: RESP 16; O2SAT 97
[2023-05-29] MEDS: acetaminophen 325mg tablet PO PRN (19:55)
[2023-05-29 20:00] VITALS: BP 117/74; PULSE 98; RESP 16; TEMP 98.2; O2SAT 97
[2023-05-29] MEDS: quetiapine 100mg tablet PO SCH (20:41)
[2023-05-29] MEDS: mirtazapine 15mg tablet PO SCH (20:41)
[2023-05-29] MEDS: Melatonin 3mg tablet PO SCH (20:41)
[2023-05-29] MEDS: quetiapine 100mg tablet PO PRN (22:36)
[2023-05-30] MEDS: NICOTINE POLACRILEX 2 MG LOZENGE BC PRN ×3 (00:37→19:16)
--- NOTE | 2023-05-30 04:16 | NUR ---
Nursing Progress Note: Problem: Pt admitted on 5150 for DTO from our ER with thoughts to hurt others. He does not know where he can live. He is homeless, does not eat and not wearing shoes. Pt has history of Schizophrenia; Bipolar; Anxiety; & Antisocial. Interventions: Provided 1:1 assessment with therapeutic communication and active listening; medication administration/education/monitoring; provided clear and simple instructions, attempted to orient to reality, provided active listening and positive encouragement, and maintained Q 15min safety checks. Response: Received pt. socializing with peers and staff at change of shift. Pt. is pleasant and cooperative. Pt. participated in evening snack. Denies SI/HI/VH and states he always has AH. He is medication compliant. Pt. reported stubbing his toe on the chair and c/o 7/10 pain; PRN Tylenol was provided with effectiveness. Pt. requested nicotine lozenge throughout the shift. Pt. later reported not being able to sleep and requested his PRN seroquel. Pt. was provided PRN seroquel but remained awake for a few hours; during this time he requested water and snacks. Pt. is observed and appears to be sleeping at this time . Plan: Pt. continues to require a safe and supportive environment and is awaiting placement.
[2023-05-30 07:00] VITALS: RESP 12; O2SAT 97
[2023-05-30 08:00] VITALS: BP 121/56; PULSE 78; RESP 12; TEMP 97.7; O2SAT 97
--- NOTE | 2023-05-30 08:36 | NUR ---
F/u 05/30: Pt PO mostly ~100% avg regular diet and double eggs WB meeting estimated needs. LBM 05/29 per EMR. No nutrition interventions. Will continue to follow. Recommendations: 1. Continue regular diet; double eggs WB for satiety 2. Routine bowel care 3. Weekly scaled wts Addendum: 05/30/23 at [address] Amended: Links added.
[2023-05-30] MEDS: LORazepam 0.5 MG tablet PO SCH ×3 (08:47→20:19)
[2023-05-30] MEDS: sennosides/docusate sodium tablet PO SCH ×2 (08:48→20:19)
[2023-05-30] MEDS: busPIRone 5mg tablet PO SCH ×3 (08:48→16:45)
[2023-05-30] MEDS: multivitamins, therapeutics tablet PO SCH (08:48)
[2023-05-30] MEDS: olanzapine 10mg tablet PO SCH (08:48)
[2023-05-30] MEDS: QUEtiapine 25mg tablet PO SCH ×3 (08:48→16:45)
[2023-05-30] MEDS: buPROPion 75mg tablet PO SCH (08:49)
[2023-05-30] MEDS: clotrimazole topical cream 15gm tube TP SCH ×2 (08:49→20:19)
[2023-05-30] MEDS: buprenorphine/naloxone 2-0.5mg sublingual tablet SL SCH ×2 (08:49→16:45)
[2023-05-30] MEDS: LORazepam 1 MG tablet PO SCH (12:16)
--- NOTE | 2023-05-30 15:35 | NUR ---
Nursing Progress Note: Problem : Pt admitted on 5150 for DTO from our ER. Pt reported that he constantly has thoughts of killing people. He does not know where he can live. He is homeless, does not eat and not wearing shoes. Pt has history of Schizophrenia; Bipolar; Anxiety; & Antisocial. Interventions : Maintained a safe and supportive environment, ensured contract for safety, provided clear and simple instructions, attempted to orient to reality, provided active listening and positive encouragement, and maintained Q 15min safety checks. Response : Received pt. sleeping in bed at the beginning of the shift, he was awoken to attend breakfast in the Group Room, and afterwards retreated back to bed. It was reported by geosciences professor that pt. did not sleep well last night and he presents with some fatigue, this was endorsed to CANDELARIO Gentile. Pt. remains guarded with conversation regarding mental health and denies all mental health s/s, he does not appear to be responding to internal stimuli. Pt. napped intermittently throughout the shift, and was observed to be interacting appropriately with others. Plan : Pt. continues to require a safe and supportive environment and is awaiting placement.
[2023-05-30 19:00] VITALS: RESP 16; O2SAT 96
[2023-05-30 20:00] VITALS: BP 111/59; PULSE 66; RESP 16; TEMP 97.1; O2SAT 96
[2023-05-30] MEDS: Melatonin 3mg tablet PO SCH (20:20)
[2023-05-30] MEDS: mirtazapine 15mg tablet PO SCH (20:20)
[2023-05-30] MEDS: quetiapine 100mg tablet PO SCH (20:20)
--- NOTE | 2023-05-31 01:19 | NUR ---
Nursing Progress Note: Problem : Pt admitted on 5150 for DTO from our ER. Pt reported that he constantly has thoughts of killing people. He does not know where he can live. He is homeless, does not eat and not wearing shoes. Pt has history of Schizophrenia; Bipolar; Anxiety; & Antisocial. Interventions : Maintained a safe and supportive environment, ensured contract for safety, provided clear and simple instructions, attempted to orient to reality, provided active listening and positive encouragement, and maintained Q 15min safety checks. Response : Received pt. lying in bed wearing head phones at change of shift. Pt. later came out and requested a PRN nicotine lozenge. Pt. is pleasant and cooperative. He socializes on the unit and participated in evening snack. Pt. denies SI/HI/VH and continues having AH. Pt. does not appear to be responding to internal stimuli this shift. Pt. took all night medications without issue. Observed and appears to be sleeping without difficulty. Plan : Pt. continues to require a safe and supportive environment and is awaiting placement.
[2023-05-31] MEDS: olanzapine 10mg tablet PO SCH (07:37)
[2023-05-31] MEDS: buprenorphine/naloxone 2-0.5mg sublingual tablet SL SCH ×2 (07:38→17:11)
[2023-05-31] MEDS: sennosides/docusate sodium tablet PO SCH ×2 (07:38→21:09)
[2023-05-31] MEDS: LORazepam 0.5 MG tablet PO SCH ×3 (07:38→21:09)
[2023-05-31] MEDS: QUEtiapine 25mg tablet PO SCH ×3 (07:38→17:11)
[2023-05-31] MEDS: busPIRone 5mg tablet PO SCH ×3 (07:38→17:10)
[2023-05-31] MEDS: buPROPion 75mg tablet PO SCH (07:38)
[2023-05-31] MEDS: multivitamins, therapeutics tablet PO SCH (07:38)
[2023-05-31] MEDS: clotrimazole topical cream 15gm tube TP SCH ×2 (07:39→20:00)
[2023-05-31 08:00] VITALS: BP 101/56; PULSE 73; RESP 14; TEMP 98; O2SAT 97
[2023-05-31] MEDS: NICOTINE POLACRILEX 2 MG LOZENGE BC PRN ×5 (09:17→21:16)
[2023-05-31] MEDS: LORazepam 1 MG tablet PO SCH (12:09)
--- NOTE | 2023-05-31 13:43 | NUR ---
NURSING PROGRESS NOTE Problem: Pt admitted on 5150 for DTO from our ER. Pt reported that he constantly has thoughts of killing people. He does not know where he can live. He is homeless, does not eat and not wearing shoes. Pt has history of Schizophrenia; Bipolar; Anxiety; & Antisocial. Interventions: One to one to assess mood, therapeutic communication, active listening, provided clear and simple instructions, medication administration/education/monitoring, behavior monitoring and intervention as needed, positive reinforcement, reality orientation, maintained a safe and supportive environment, and Q15 minute safety checks. Response: Upon turn of shift noted patient sleeping in bed. Slept several hours last night. Good hygiene noted wearing black street clothes and black rimmed glasses. Bright mood today. Denies SI, HI, AH and VH. Compliant with meds. PRN Nicotine lozenges & M.O.M given. Reports pebble, stool noted. Pending another BM. Patient has been socializing with staff and seen laughing out loud today. Able to make needs known. Took a nap this afternoon. No behaviors noted. Will continue to monitor. Plan: Patient is conserved and awaiting placement in [facility] safe and therapeutic environment
[2023-05-31 19:00] VITALS: RESP 16; O2SAT 97
[2023-05-31 19:33] VITALS: BP 122/68; PULSE 70; RESP 16; TEMP 98.3; O2SAT 97
[2023-05-31] MEDS: Melatonin 3mg tablet PO SCH (21:09)
[2023-05-31] MEDS: mirtazapine 15mg tablet PO SCH (21:09)
[2023-05-31] MEDS: quetiapine 100mg tablet PO SCH (21:10)
--- NOTE | 2023-06-01 01:00 | NUR ---
NURSING PROGRESS NOTE Problem: Pt admitted on 5150 for DTO from our ER. Pt reported that he constantly has thoughts of killing people. He does not know where he can live. He is homeless, does not eat and not wearing shoes. Pt has history of Schizophrenia; Bipolar; Anxiety; & Antisocial. Interventions: One to one to assess mood, therapeutic communication, active listening, provided clear and simple instructions, medication administration/education/monitoring, behavior monitoring and intervention as needed, positive reinforcement, reality orientation, maintained a safe and supportive environment, and Q15 minute safety checks. Response: Pt has been a little agitated this shift. Loud laughing. Pt said when asked about A/H "I'm doing alright." Denied SI, HI, VH. Up to group room for snack. Some difficulty getting to sleep pacing in room laughing suddenly and loudly. Encouraged to turn off lights and lay down. Given Prn Seroquel. Pt able to go to sleep. Plan: Patient is conserved and awaiting placement in [facility] safe and therapeutic environment
[2023-06-01 07:00] VITALS: RESP 16; O2SAT 98
[2023-06-01 08:00] VITALS: BP 119/46; PULSE 74; RESP 16; TEMP 97.8; O2SAT 98
[2023-06-01] MEDS: busPIRone 5mg tablet PO SCH ×3 (08:29→16:13)
[2023-06-01] MEDS: buprenorphine/naloxone 2-0.5mg sublingual tablet SL SCH (08:29)
[2023-06-01] MEDS: LORazepam 0.5 MG tablet PO SCH ×3 (08:29→20:04)
[2023-06-01] MEDS: buPROPion 75mg tablet PO SCH (08:29)
[2023-06-01] MEDS: sennosides/docusate sodium tablet PO SCH ×2 (08:30→20:04)
[2023-06-01] MEDS: olanzapine 10mg tablet PO SCH (08:30)
[2023-06-01] MEDS: QUEtiapine 25mg tablet PO SCH ×3 (08:30→16:13)
[2023-06-01] MEDS: clotrimazole topical cream 15gm tube TP SCH ×2 (08:30→20:06)
[2023-06-01] MEDS: multivitamins, therapeutics tablet PO SCH (08:30)
[2023-06-01] MEDS: NICOTINE POLACRILEX 2 MG LOZENGE BC PRN (10:43)
[2023-06-01] MEDS: LORazepam 1 MG tablet PO SCH (12:08)
--- NOTE | 2023-06-01 13:00 | NUR ---
Behavioral Plan for Chan June 01-June 15 Attend 4 groups a week Cannot engage in any self harming behaviors No suicidal or homicidal statements Chan has agreed to this plan. If he is able to follow it he can have lunch on the patio with his parents. MARIA LUISA Villeda
--- NOTE | 2023-06-01 17:01 | NUR ---
NURSING PROGRESS NOTE: Chan Problem: Pt admitted on 5150 for DTO from our ER. Pt reported that he constantly has thoughts of killing people. He does not know where he can live. He is homeless, does not eat and not wearing shoes. Pt has history of Schizophrenia; Bipolar; Anxiety; & Antisocial. Interventions: Provided 1:1 assessment, therapeutic communication, active listening, provided clear and simple instructions, medication administration/education/monitoring, behavior monitoring and intervention as needed, positive reinforcement, reality orientation, maintained a safe and supportive environment, and Q15 minute safety checks. Response: Patient received sleeping in bed with no s/s of distress. He declined to participate for breakfast, noted sleeping in his room until late morning. Pt endorsed that he is not hungry this morning, however, was noted asking for various snacks upon awakening. He has short, closed-ended responses and is unwilling to engage in assessment. Pt denies SI/HI, AH or VH. Pt appears to be responding to IS intermittently AEB laughing out loud at random intervals. He was noted working-out in his room later in the day. Pt was observed attempting to choke himself with a t-shirt 2 times this shift in an attempt to feel high. He was redirected from self-choking behaviors. Pt was isolative to his room the majority of the shift. Pt became frustrated later in the day endorsing that staff took his shit. Pt referring to a comb pick that was removed from his room yesterday. This PEDIATRIC ANESTHESIOLOGIST spoke with the charge nurse who confirmed that the comb pick was removed for safety measures. Pt noted walking around at times asking other peers for their food. He presents as guarded with a constricted affect. Plan: Patient is conserved and awaiting placement in [facility] safe and therapeutic environment.
[2023-06-01 19:00] VITALS: RESP 16; O2SAT 96
[2023-06-01 19:05] VITALS: BP 118/60; PULSE 70; RESP 16; TEMP 97.9; O2SAT 96
[2023-06-01] MEDS: Melatonin 3mg tablet PO SCH (20:03)
[2023-06-01] MEDS: quetiapine 100mg tablet PO SCH (20:04)
[2023-06-01] MEDS: mirtazapine 15mg tablet PO SCH (20:04)
--- NOTE | 2023-06-02 01:55 | NUR ---
NURSING PROGRESS NOTE: Chan Problem: Pt admitted on 5150 for DTO from our ER. Pt reported that he constantly has thoughts of killing people. He does not know where he can live. He is homeless, does not eat and not wearing shoes. Pt has history of Schizophrenia; Bipolar; Anxiety; & Antisocial. Interventions: Provided 1:1 assessment, therapeutic communication, active listening, provided clear and simple instructions, medication administration/education/monitoring, behavior monitoring and intervention as needed, positive reinforcement, reality orientation, maintained a safe and supportive environment, and Q15 minute safety checks. Response: Pt was isolative to his room the majority of the shift. He came to the group room for snack after being invited by another pt. He presents as guarded with a constricted affect. Depressed affect. Took HS medication willingly but did not answer questions for assessment. He was not observed by any staff attempting to choke himself. Plan: Patient is conserved and awaiting placement in [facility] safe and therapeutic environment.
[2023-06-02 07:28] VITALS: BP 102/64; PULSE 62; RESP 16; TEMP 98.3; O2SAT 100
[2023-06-02 08:00] VITALS: RESP 16; O2SAT 100
[2023-06-02] MEDS: clotrimazole topical cream 15gm tube TP SCH ×2 (08:45→20:00)
[2023-06-02] MEDS: QUEtiapine 25mg tablet PO SCH ×3 (08:46→16:15)
[2023-06-02] MEDS: LORazepam 0.5 MG tablet PO SCH ×3 (08:46→20:15)
[2023-06-02] MEDS: multivitamins, therapeutics tablet PO SCH (08:46)
[2023-06-02] MEDS: busPIRone 5mg tablet PO SCH ×3 (08:47→16:16)
[2023-06-02] MEDS: buPROPion 75mg tablet PO SCH (08:48)
[2023-06-02] MEDS: sennosides/docusate sodium tablet PO SCH ×2 (08:48→20:15)
[2023-06-02] MEDS: olanzapine 10mg tablet PO SCH (08:48)
[2023-06-02] MEDS: NICOTINE POLACRILEX 2 MG LOZENGE BC PRN ×4 (08:56→18:49)
[2023-06-02 09:03] VITALS: RESP 16; O2SAT 100
[2023-06-02] MEDS: LORazepam 1 MG tablet PO SCH (12:15)
--- NOTE | 2023-06-02 17:49 | NUR ---
NURSING PROGRESS NOTE: Chan Problem: Pt admitted on 5150 for DTO from our ER. Pt reported that he constantly has thoughts of killing people. He does not know where he can live. He is homeless, does not eat and not wearing shoes. Pt has history of Schizophrenia; Bipolar; Anxiety; & Antisocial. Interventions: Provided 1:1 assessment, therapeutic communication, active listening, provided clear and simple instructions, medication administration/education/monitoring, behavior monitoring and intervention as needed, positive reinforcement, reality orientation, maintained a safe and supportive environment, and Q15 minute safety checks. Response: PT received sleeping with no obvious sign of distress. PT declines to participate in eating breakfast in TV room. He slept in until 10:00, which then he was provided breakfast. When asked when his last bowel movement was he replied I dont know. I really dont. PT denies any SI/HI, AH, and VH. Pt coming in and out of his corridor throughout the afternoon. Pt observed resting in bed with eyes closed w/o obvious signs of distress. He continues to appear reserved with closed-ended responses. Pt was active on the unit later in the shift. Plan: Patient is conserved and awaiting placement in [facility] safe and therapeutic environment.
[2023-06-02 19:00] VITALS: RESP 18; O2SAT 100
[2023-06-02 20:00] VITALS: BP 129/75; PULSE 85; RESP 18; TEMP 98.4; O2SAT 100
[2023-06-02] MEDS: quetiapine 100mg tablet PO SCH (20:15)
[2023-06-02] MEDS: mirtazapine 15mg tablet PO SCH (20:15)
[2023-06-02] MEDS: Melatonin 3mg tablet PO SCH (20:15)
[2023-06-02] MEDS: acetaminophen 325mg tablet PO PRN (23:27)
--- NOTE | 2023-06-03 | NUR ---
NURSING PROGRESS NOTE: Anjel Problem: Pt admitted on 5150 for DTO from our ER. Pt reported that he constantly has thoughts of killing people. He does not know where he can live. He is homeless, does not eat and not wearing shoes. Pt has history of Schizophrenia; Bipolar; Anxiety; & Antisocial. Interventions: Provided 1:1 assessment, therapeutic communication, active listening, provided clear and simple instructions, medication administration/education/monitoring, behavior monitoring and intervention as needed, positive reinforcement, reality orientation, maintained a safe and supportive environment, and Q15 minute safety checks. Response: Pt received on unit. Pt greeted casualty underwriter. He is social with staff and peers. Pt denies pain. He reports no changes with current POC. Change Management Manager notices patient is now in A bed. Pt stated he had been switched from B to A bed due to asphyxiation practice. Patient verbalized he has been practicing asphyxiation since 20 years old. 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 Pt makes clear distinction of asphyxiation practice can either be for sex or for his desire to get to a greater dream state. Pt accesses Tylenol PRN during shift for lower back pain due to Muscle Rub order unavailable. Pt requests from Provider to restart Muscle rub. Pt enjoyed eating cookie provided by staff and briefly watching fireworks. Pt compliant with all medications. Nicotine lozenges were accessed. No breathing issues nor distress noted during shift. Plan: Patient is conserved and awaiting placement in [facility] safe and therapeutic environment.
[2023-06-03 06:50] VITALS: RESP 16; O2SAT 100
[2023-06-03] MEDS: NICOTINE POLACRILEX 2 MG LOZENGE BC PRN ×4 (07:04→20:23)
[2023-06-03] MEDS: buPROPion 75mg tablet PO SCH (07:51)
[2023-06-03] MEDS: multivitamins, therapeutics tablet PO SCH (07:51)
[2023-06-03] MEDS: LORazepam 0.5 MG tablet PO SCH ×3 (07:51→20:23)
[2023-06-03] MEDS: busPIRone 5mg tablet PO SCH ×3 (07:51→16:39)
[2023-06-03] MEDS: QUEtiapine 25mg tablet PO SCH ×3 (07:52→16:40)
[2023-06-03] MEDS: sennosides/docusate sodium tablet PO SCH ×2 (07:52→20:23)
[2023-06-03] MEDS: olanzapine 10mg tablet PO SCH (07:52)
[2023-06-03 08:00] VITALS: BP 151/96; PULSE 72; RESP 14; TEMP 97.2; O2SAT 96
[2023-06-03] MEDS: clotrimazole topical cream 15gm tube TP SCH ×2 (08:00→20:00)
[2023-06-03] MEDS: LORazepam 1 MG tablet PO SCH (12:21)
[2023-06-03] MEDS ORDERED: mag hydrox/Alum hydrox/simeth 30ml oral suspension PO PRN (16:05)
[2023-06-03] MEDS ORDERED: loperamide 2mg capsule PO PRN (16:05)
[2023-06-03] MEDS ORDERED: acetaminophen 325mg tablet PO PRN ×2 (16:05)
[2023-06-03] MEDS ORDERED: magnesium hydroxide 30ml (MOM) UD suspension PO PRN (16:05)
--- NOTE | 2023-06-03 17:41 | NUR ---
NURSING PROGRESS NOTE: Problem: Pt admitted on 5150 for DTO from our ER. Pt reported that he constantly has thoughts of killing people. He does not know where he can live. He is homeless, does not eat and not wearing shoes. Pt has history of Schizophrenia; Bipolar; Anxiety; & Antisocial. Interventions: Provided 1:1 assessment, therapeutic communication, active listening, provided clear and simple instructions, medication administration/education/monitoring, behavior monitoring and intervention as needed, positive reinforcement, reality orientation, maintained a safe and supportive environment, and Q15 minute safety checks. Response: Patient woke early and accepted his medications with breakfast. He then napped and lounged around until group time. Patient attended group, sat in front, and participated. After eating lunch and mid-day meds, he went and took a nap. Patient is up for meals and snacks, but has spent much of the day on his bed. He accepts his medications throughout the day. Patient continues to be friendly with staff and certain peers. No delusional content observed today. Plan: Patient is conserved and awaiting placement in [facility] for safe and therapeutic environment.
[2023-06-03 20:00] VITALS: BP 130/83; PULSE 87; RESP 20; TEMP 98.1; O2SAT 96
[2023-06-03] MEDS: Melatonin 3mg tablet PO SCH (20:23)
[2023-06-03] MEDS: mirtazapine 15mg tablet PO SCH (20:23)
[2023-06-03] MEDS: quetiapine 100mg tablet PO SCH (20:23)
--- NOTE | 2023-06-04 00:09 | NUR ---
NURSING PROGRESS NOTE: Chan Problem: Pt admitted on 5150 for DTO from our ER. Pt reported that he constantly has thoughts of killing people. He does not know where he can live. He is homeless, does not eat and not wearing shoes. Pt has history of Schizophrenia; Bipolar; Anxiety; & Antisocial. Interventions: Provided 1:1 assessment, therapeutic communication, active listening, provided clear and simple instructions, medication administration/education/monitoring, behavior monitoring and intervention as needed, positive reinforcement, reality orientation, maintained a safe and supportive environment, and Q15 minute safety checks. Response: Patient pacing from the community room to his room. Pt requested nicotine lozenge at start of shift, denies AH stating not today. Pt up for snacks and took all HS medications. When asked when his last BM was the patient shrugged his shoulders and states I dont know. Pt presents as guarded with poor eye contact. The CN reports seeing the pt engage in self-harming behavior. (asphyxiation practice). CN stated she had a conservation with the pt about refraining from doing such practices. Plan: Patient is conserved and awaiting placement in [facility] for safe and therapeutic environment.
[2023-06-04] MEDS: NICOTINE POLACRILEX 2 MG LOZENGE BC PRN ×4 (03:15→19:03)
[2023-06-04 07:00] VITALS: RESP 16; O2SAT 96
[2023-06-04] MEDS: sennosides/docusate sodium tablet PO SCH ×2 (07:58→20:08)
[2023-06-04] MEDS: LORazepam 0.5 MG tablet PO SCH ×3 (07:58→20:08)
[2023-06-04] MEDS: QUEtiapine 25mg tablet PO SCH ×3 (07:58→15:33)
[2023-06-04] MEDS: multivitamins, therapeutics tablet PO SCH (07:58)
[2023-06-04] MEDS: busPIRone 5mg tablet PO SCH ×3 (07:59→15:33)
[2023-06-04] MEDS: buPROPion 75mg tablet PO SCH (07:59)
[2023-06-04] MEDS: olanzapine 10mg tablet PO SCH (07:59)
[2023-06-04 08:00] VITALS: BP 143/82; PULSE 60; RESP 12; TEMP 97.7; O2SAT 96
[2023-06-04] MEDS ORDERED: nicotine 21mg patch - 24 hr TD SCH (08:00)
[2023-06-04] MEDS: clotrimazole topical cream 15gm tube TP SCH ×2 (08:53→20:09)
[2023-06-04] MEDS: LORazepam 1 MG tablet PO SCH (11:39)
--- NOTE | 2023-06-04 12:34 | NUR ---
Sent updated notes to [place] office (05/29-06/03). MARIA LUISA Villeda
--- NOTE | 2023-06-04 15:38 | NUR ---
Nursing Progress Note: Chan Problem: Currently on LPS awaiting placement. Orig. admit 10/10/22 d/t GD, homeless and unable to formulate a viable plan for alf and food, with homicidal ideations constantly. Pt has history of Schizophrenia, bipolar, anxiety, antisocial. Interventions: Medication administration, 1:1 MH assessment, maintained a safe and supportive environment, provided clear and simple instructions, provided encouragement regarding performance of ADLs, monitored behaviors and maintained clear boundaries, maintained Q15 minute safety checks. Response: Pt. received asleep and awoke to take his medications. He denies SI, HI, VH, and endorses AH stating its hard to explain, I do hear voices, but its always positive Pt. presents with good eye contact, pleasant and respectful to this marketing underwriter. Pt. spent most of the morning OOB and interacting with cohorts. He napped until lunch and listened to headphones and walked around the unit intermittently. He ate all meals in the community room with cohorts. Pt. has good hygiene, wears street clothes and requested a shower. Pt. had zero behaviors or episode of self-harm. Pt. refused labs this morning d/t it was so early, and I didnt sleep well Plan: Pt. requires medication adjustments and a safe and supportive environment along with close monitoring for patient and staff safety.
[2023-06-04 18:50] VITALS: RESP 18; O2SAT 96
[2023-06-04 19:59] VITALS: BP 127/67; PULSE 88; RESP 18; TEMP 98; O2SAT 96
[2023-06-04] MEDS: Melatonin 3mg tablet PO SCH (20:08)
[2023-06-04] MEDS: quetiapine 100mg tablet PO SCH (20:08)
[2023-06-04] MEDS: mirtazapine 15mg tablet PO SCH (20:08)
--- NOTE | 2023-06-05 04:58 | NUR ---
NURSING PROGRESS NOTE: Problem: Pt admitted on 5150 for DTO from our ER. Pt reported that he constantly has thoughts of killing people. He does not know where he can live. He is homeless, does not eat and not wearing shoes. Pt has history of Schizophrenia; Bipolar; Anxiety; & Antisocial. Interventions: Provided 1:1 assessment, therapeutic communication, active listening, provided clear and simple instructions, medication administration/education/monitoring, behavior monitoring and intervention as needed, positive reinforcement, reality orientation, maintained a safe and supportive environment, and Q15 minute safety checks. Response: Upon turn of shift noted patient walking out of room. Fist bumped this nurse at start of conversation. Appeared to be fatigued. Patient expressed feeling tired today. Noted to be clean wearing street clothes with good hygiene. Calm demeanor and open to conversation. Expressed that he refused labs today. Reports that he was sleeping and that hell be ready in a few days to have them done. Denies urges to place shirt around his neck. Reminded patient that we care about him and want to keep him safe. Also reports that he met his dad for the first time in his adult life when they were both high on drugs and he laughed inappropriately regarding that. Reports that dad said hed be able to meet his older brother next time when theyre not on drugs. No behaviors noted. No delusional statements made. Denies SI, HI, AH, and VH. Reports his mom is bringing tacos tomorrow for everyone. Sat up in dining room to watch movie with cohort prior to going to sleep. Seen socializing with staff and cohort. PRN Nicotine lozenge given x 1. Compliant with HS meds. Fell asleep within an hour of taking meds. Will continue to monitor. Plan: Patient is conserved and awaiting placement in [facility] for safe and therapeutic environment.
[2023-06-05] MEDS: NICOTINE POLACRILEX 2 MG LOZENGE BC PRN ×3 (05:32→19:15)
[2023-06-05 07:00] VITALS: RESP 16; O2SAT 100
[2023-06-05] MEDS: olanzapine 10mg tablet PO SCH (07:20)
[2023-06-05] MEDS: LORazepam 0.5 MG tablet PO SCH ×3 (07:20→19:48)
[2023-06-05] MEDS: multivitamins, therapeutics tablet PO SCH (07:20)
[2023-06-05] MEDS: buPROPion 75mg tablet PO SCH (07:21)
[2023-06-05] MEDS: QUEtiapine 25mg tablet PO SCH ×3 (07:21→15:45)
[2023-06-05] MEDS: sennosides/docusate sodium tablet PO SCH ×2 (07:21→19:48)
[2023-06-05] MEDS: busPIRone 5mg tablet PO SCH ×3 (07:21→15:45)
[2023-06-05 08:00] VITALS: BP 131/71; PULSE 64; RESP 16; TEMP 97.9; O2SAT 100
[2023-06-05] MEDS: clotrimazole topical cream 15gm tube TP SCH ×2 (08:00→19:48)
[2023-06-05] MEDS: LORazepam 1 MG tablet PO SCH (12:30)
--- NOTE | 2023-06-05 15:32 | NUR ---
Nursing Progress Note: Chan Problem: Currently on LPS awaiting placement. Orig. admit 10/10/22 d/t GD, homeless and unable to formulate a viable plan for chcf and food, with homicidal ideations constantly. Pt has history of Schizophrenia, bipolar, anxiety, antisocial. Interventions: Medication administration, 1:1 MH assessment, maintained a safe and supportive environment, provided clear and simple instructions, provided encouragement regarding performance of ADLs, monitored behaviors and maintained clear boundaries, maintained Q15 minute safety checks. Response: Pt. received awake and brushing his teeth. He took his medications without hesitation. Pt. presents as upbeat, and laughing spontaneously. He endorses AH stating they make me laugh, its all good he denies SI, HI, VH. Pt. up early and out on the unit socializing with cohorts, he has good eye contact and talks to this entry writer calmly. Pt. ate all meals in the community room and attended group this morning. He has good hygiene, well-groomed and wears street clothes. Plan: Pt. requires medication adjustments and a safe and supportive environment along with close monitoring for patient and staff safety.
[2023-06-05 19:15] VITALS: RESP 16; O2SAT 97
[2023-06-05] MEDS: Melatonin 3mg tablet PO SCH (19:48)
[2023-06-05] MEDS: mirtazapine 15mg tablet PO SCH (19:48)
[2023-06-05] MEDS: quetiapine 100mg tablet PO SCH (19:48)
[2023-06-05 20:00] VITALS: BP 124/64; PULSE 64; RESP 16; TEMP 98; O2SAT 97
[2023-06-06] MEDS: quetiapine 100mg tablet PO PRN (03:12)
--- NOTE | 2023-06-06 05:02 | NUR ---
NURSING PROGRESS NOTE: Problem: Pt admitted on 5150 for DTO from our ER. Pt reported that he constantly has thoughts of killing people. He does not know where he can live. He is homeless, does not eat and not wearing shoes. Pt has history of Schizophrenia; Bipolar; Anxiety; & Antisocial. Interventions: Provided 1:1 assessment, therapeutic communication, active listening, provided clear and simple instructions, medication administration/education/monitoring, behavior monitoring and intervention as needed, positive reinforcement, reality orientation, maintained a safe and supportive environment, and Q15 minute safety checks. Response: Upon turn of shift noted patient sleeping on left side. Noted to be wearing street clothes and has good hygiene. Wearing black framed glasses. Calm, cooperative and pleasant demeanor. Patient communicates very respectfully with, please, and, thank you, and, yes maam. Performed 1:1 assessment while patient was sitting up in bed. Less social and talkative today. While he had more rest last night then the prior night, less engagement is noted. Withdrawn, more guarded and isolative today. Patient denies needing anything. Denies MH s/sx. No apparent response to internal stimuli. No delusional statements made. No behaviors noted. Requested HS meds early. Compliant with med administration. PRN nicotine lozenge and Seroquel given. Will continue to monitor. Plan: Patient is conserved and awaiting placement in [facility] for safe and therapeutic environment.
[2023-06-06 07:04] VITALS: RESP 16; O2SAT 100
[2023-06-06] MEDS: NICOTINE POLACRILEX 2 MG LOZENGE BC PRN ×3 (07:32→19:17)
[2023-06-06] MEDS: olanzapine 10mg tablet PO SCH (07:49)
[2023-06-06] MEDS: multivitamins, therapeutics tablet PO SCH (07:49)
[2023-06-06] MEDS: LORazepam 0.5 MG tablet PO SCH ×3 (07:49→19:48)
[2023-06-06] MEDS: QUEtiapine 25mg tablet PO SCH ×3 (07:49→16:59)
[2023-06-06] MEDS: clotrimazole topical cream 15gm tube TP SCH ×2 (07:50→19:49)
[2023-06-06] MEDS: buPROPion 75mg tablet PO SCH (07:50)
[2023-06-06] MEDS: sennosides/docusate sodium tablet PO SCH ×2 (07:50→19:48)
[2023-06-06] MEDS: busPIRone 5mg tablet PO SCH ×3 (07:50→16:59)
[2023-06-06 08:00] VITALS: BP 113/57; PULSE 53; RESP 16; TEMP 98; O2SAT 96
[2023-06-06] MEDS: LORazepam 1 MG tablet PO SCH (12:06)
--- NOTE | 2023-06-06 17:47 | NUR ---
NURSING PROGRESS NOTE: Problem: Pt admitted on 5150 for DTO from our ER. Pt reported that he constantly has thoughts of killing people. He does not know where he can live. He is homeless, does not eat and not wearing shoes. Pt has history of Schizophrenia; Bipolar; Anxiety; & Antisocial. Interventions: Provided 1:1 assessment, therapeutic communication, active listening, provided clear and simple instructions, medication administration/education/monitoring, behavior monitoring and intervention as needed, positive reinforcement, reality orientation, maintained a safe and supportive environment, and Q15 minute safety checks. Response: Patient was sleeping, but woke for breakfast. He has been compliant with all meds today. Patient uses Nicotine lozenges throughout the day. After breakfast, he went back to bed and slept until lunchtime. Patient has been up since then. He was observed later in the day with a shirt wrapped around his neck. He was not observed trying to asphyxiate himself, but it is suspected. He has been asked to keep the room door all the way open. Patient continues to be pleasant and cooperative while he awaits placement. Plan: Patient is conserved and awaiting placement in [facility] for safe and therapeutic environment. Addendum: 06/06/23 at 5245 by Camille "Anoop Barreto RN It was noted by ZACHARY Alcantara who was doing the rounds at [id number] that pt had his shirt loosely wrapped around his neck, no redness noted. Pt is NOT expressing suicidal ideation, denies depression, and makes many future oriented statements.
[2023-06-06 18:45] VITALS: RESP 18; O2SAT 96
[2023-06-06 19:34] VITALS: BP 139/80; PULSE 97; RESP 18; TEMP 97.5; O2SAT 96
[2023-06-06] MEDS: Melatonin 3mg tablet PO SCH (19:48)
[2023-06-06] MEDS: quetiapine 100mg tablet PO SCH (19:48)
[2023-06-06] MEDS: mirtazapine 15mg tablet PO SCH (19:49)
[2023-06-06] MEDS: magnesium hydroxide 30ml (MOM) UD suspension PO PRN (19:50)
[2023-06-06 22:50] VITALS: RESP 18; O2SAT 96
--- NOTE | 2023-06-07 04:02 | NUR ---
NURSING PROGRESS NOTE: Problem: Pt admitted on 5150 for DTO from our ER. Pt reported that he constantly has thoughts of killing people. He does not know where he can live. He is homeless, does not eat and not wearing shoes. Pt has history of Schizophrenia; Bipolar; Anxiety; & Antisocial. Interventions: Provided 1:1 assessment, therapeutic communication, active listening, provided clear and simple instructions, medication administration/education/monitoring, behavior monitoring and intervention as needed, positive reinforcement, reality orientation, maintained a safe and supportive environment, and Q15 minute safety checks. Response: Upon turn of shift noted patient coming out of dining room with a homemade ruler. When asked him what it was for. Informed nurse it is to measure his biceps. Noted to be wearing street clothes and to have good hygiene. Wearing black framed glasses. Very bright today and appears to be in a good mood. Open to having conversation about the choking behaviors. Reports, I just get bored and it gives me a euphoric feeling. Provided verbal education/affirmation for patient. Patient agreed to come speak with this nurse if he gets temped to do that again. No behaviors this shift. Staff continues to monitor with q15 min checks. Continues to be in bed A for monitoring. Denies SI, HI, and VH. Reports his AH, the voices just make me laugh, like Leopoldo, just not as often. Noted spontaneous laughing a few times this shift. VSS. Compliant with HS meds. PRN Nicotine lozenge, Tylenol and Milk of Magnesia. Will continue to monitor. Plan: Patient is conserved and awaiting placement in [facility] for safe and therapeutic environment.
[2023-06-07] MEDS: NICOTINE POLACRILEX 2 MG LOZENGE BC PRN ×5 (05:10→20:12)
--- NOTE | 2023-06-07 05:45 | NUR ---
With this mornings q15 min checks noted patient sitting on end of bed with shirt stretched out. Patient has been monitored extra for choking himself. Did not see patient choking himself and this RN suspects he's doing in when door is closed in between checks. Will pass onto dayshift and continue to monitor.
[2023-06-07 07:03] VITALS: RESP 16; O2SAT 100
[2023-06-07 07:22] VITALS: BP 138/94; PULSE 81; RESP 16; TEMP 97.5; O2SAT 96
[2023-06-07] MEDS: olanzapine 10mg tablet PO SCH (07:54)
[2023-06-07] MEDS: sennosides/docusate sodium tablet PO SCH ×2 (07:54→20:12)
[2023-06-07] MEDS: LORazepam 0.5 MG tablet PO SCH ×3 (07:54→20:12)
[2023-06-07] MEDS: QUEtiapine 25mg tablet PO SCH ×3 (07:54→16:00)
[2023-06-07] MEDS: buPROPion 75mg tablet PO SCH (07:54)
[2023-06-07] MEDS: busPIRone 5mg tablet PO SCH ×3 (07:54→16:00)
[2023-06-07] MEDS: multivitamins, therapeutics tablet PO SCH (07:54)
[2023-06-07] MEDS: clotrimazole topical cream 15gm tube TP SCH ×2 (07:55→20:13)
[2023-06-07] MEDS: LORazepam 1 MG tablet PO SCH (12:09)
--- NOTE | 2023-06-07 17:33 | NUR ---
NURSING PROGRESS NOTE: Problem: Pt admitted on 5150 for DTO from our ER. Pt reported that he constantly has thoughts of killing people. He does not know where he can live. He is homeless, does not eat and not wearing shoes. Pt has history of Schizophrenia; Bipolar; Anxiety; & Antisocial. Interventions: Provided 1:1 assessment, therapeutic communication, active listening, provided clear and simple instructions, medication administration/education/monitoring, behavior monitoring and intervention as needed, positive reinforcement, reality orientation, maintained a safe and supportive environment, and Q15 minute safety checks. Response: Patient was already awake at shift change. He requested coffee, and was compliant with medications before eating breakfast. He then went back to his room where he was observed with a shirt wrapped around his neck, trying to self-asphyxiate himself. Patient states that he gets a feeling of euphoria. He then went back to bed for a nap. Patient gets up for snack and stays up through lunch time. After lunch he grabbed some headphones and went to lay back down. Personally the patient is polite, pleasant, calm and cooperative, but its his actions that make him a hard placement. Plan: Patient is conserved and awaiting placement in [facility] for safe and therapeutic environment.
[2023-06-07 19:00] VITALS: RESP 16; O2SAT 97
[2023-06-07 19:44] VITALS: BP 124/77; PULSE 84; RESP 16; TEMP 97; O2SAT 97
[2023-06-07 19:46] VITALS: BP 124/77; PULSE 8; RESP 16; TEMP 97; O2SAT 97
[2023-06-07] MEDS: quetiapine 100mg tablet PO SCH (20:11)
[2023-06-07] MEDS: mirtazapine 15mg tablet PO SCH (20:12)
[2023-06-07] MEDS: Melatonin 3mg tablet PO SCH (20:12)
--- NOTE | 2023-06-08 01:10 | NUR ---
NURSING PROGRESS NOTE: Problem: Pt admitted on 5150 for DTO from our ER. Pt reported that he constantly has thoughts of killing people. He does not know where he can live. He is homeless, does not eat and not wearing shoes. Pt has history of Schizophrenia; Bipolar; Anxiety; & Antisocial. Interventions: Provided 1:1 assessment, therapeutic communication, active listening, provided clear and simple instructions, medication administration/education/monitoring, behavior monitoring and intervention as needed, positive reinforcement, reality orientation, maintained a safe and supportive environment, and Q15 minute safety checks. Response: Pt up in lion at start of shift interacting with a staff member in a friendly way. He was on unit, ate snack in group room before going to bed. Pleasant and cooperative with care, took all medications. Plan: Patient is conserved and awaiting placement in [facility] for safe and therapeutic environment.
[2023-06-08] MEDS: NICOTINE POLACRILEX 2 MG LOZENGE BC PRN ×6 (06:51→20:51)
[2023-06-08 07:00] VITALS: RESP 16; O2SAT 100
[2023-06-08] MEDS: sennosides/docusate sodium tablet PO SCH ×2 (07:27→20:51)
[2023-06-08] MEDS: olanzapine 10mg tablet PO SCH (07:27)
[2023-06-08] MEDS: LORazepam 0.5 MG tablet PO SCH ×3 (07:27→20:51)
[2023-06-08] MEDS: QUEtiapine 25mg tablet PO SCH ×3 (07:27→15:51)
[2023-06-08] MEDS: multivitamins, therapeutics tablet PO SCH (07:27)
[2023-06-08] MEDS: buPROPion 75mg tablet PO SCH (07:27)
[2023-06-08] MEDS: busPIRone 5mg tablet PO SCH ×3 (07:28→15:51)
[2023-06-08 07:41] VITALS: BP 124/75; PULSE 72; RESP 16; TEMP 98.3; O2SAT 96
[2023-06-08] MEDS: clotrimazole topical cream 15gm tube TP SCH ×2 (08:42→20:51)
--- NOTE | 2023-06-08 09:41 | NUR ---
F/u 06/08: Pt PO w/ occasional fluctuations ~82% avg regular diet and double eggs WB in addition to snacks meeting estimated needs. LBM 06/05 per EMR. No nutrition interventions. Will continue to follow. Recommendations: 1. Continue regular diet; double eggs WB for satiety 2. Routine bowel care 3. Weekly scaled wts Addendum: 06/08/23 at [address] Amended: Links added.
[2023-06-08] MEDS: LORazepam 1 MG tablet PO SCH (12:37)
--- NOTE | 2023-06-08 17:27 | NUR ---
NURSING PROGRESS NOTE: Problem: Pt admitted on 5150 for DTO from our ER. Pt reported that he constantly has thoughts of killing people. He does not know where he can live. He is homeless, does not eat and not wearing shoes. Pt has history of Schizophrenia; Bipolar; Anxiety; & Antisocial. Interventions: Provided 1:1 assessment, therapeutic communication, active listening, provided clear and simple instructions, medication administration/education/monitoring, behavior monitoring and intervention as needed, positive reinforcement, reality orientation, maintained a safe and supportive environment, and Q15 minute safety checks. Response: Patient came and requested a Nicotine lozenge after shift change. He was brought his AM meds with the lozenge. Patient was compliant with all. After eating his breakfast he went back to bed per his usual. He got up for snack time, then attended group. He has stayed up and watched TV in the rec room until lunch. Patient has stayed up since lunch watching TV with his peers. No attempts to asphyxiate himself today. He denies all MH symptoms. Plan: Patient is conserved and awaiting placement in [facility] for safe and therapeutic environment.
[2023-06-08 18:34] VITALS: RESP 16; O2SAT 96
[2023-06-08 20:06] VITALS: BP 123/76; PULSE 92; RESP 16; TEMP 97.9; O2SAT 97
[2023-06-08] MEDS: Melatonin 3mg tablet PO SCH (20:50)
[2023-06-08] MEDS: mirtazapine 15mg tablet PO SCH (20:51)
[2023-06-08] MEDS: quetiapine 100mg tablet PO SCH (20:51)
--- NOTE | 2023-06-08 23:51 | NUR ---
NURSING PROGRESS NOTE: Problem: Pt admitted on 5150 for DTO from our ER. Pt reported that he constantly has thoughts of killing people. He does not know where he can live. He is homeless, does not eat and not wearing shoes. Pt has history of Schizophrenia; Bipolar; Anxiety; & Antisocial. Interventions: Provided 1:1 assessment, therapeutic communication, active listening, provided clear and simple instructions, medication administration/education/monitoring, behavior monitoring and intervention as needed, positive reinforcement, reality orientation, maintained a safe and supportive environment, and Q15 minute safety checks. Response:Pt approached nurses station at change of shift asking for a nicotine lozenge and was provided with one. Pt is pleasant and cooperative. Pt states his day was good and gives a thumbs up. Pt spent evening socializing with peer and staff and watched tv. Pt had snacks in the group room and took HS meds. Pt denies s/i and states he is just "bored" when he tries to choke himself. Pt states he promises not to do that. Pt was not seen making any attempt to choke himself this evening. Plan: Patient is conserved and awaiting placement in [facility] for safe and therapeutic environment.
[2023-06-09] MEDS: NICOTINE POLACRILEX 2 MG LOZENGE BC PRN ×5 (06:48→20:31)
[2023-06-09 07:00] VITALS: RESP 16
[2023-06-09 08:00] VITALS: BP 117/61; PULSE 67; RESP 16; TEMP 98.5; O2SAT 96
[2023-06-09] MEDS: olanzapine 10mg tablet PO SCH (08:30)
[2023-06-09] MEDS: multivitamins, therapeutics tablet PO SCH (08:30)
[2023-06-09] MEDS: busPIRone 5mg tablet PO SCH ×3 (08:30→15:40)
[2023-06-09] MEDS: buPROPion 75mg tablet PO SCH (08:30)
[2023-06-09] MEDS: sennosides/docusate sodium tablet PO SCH ×2 (08:30→20:29)
[2023-06-09] MEDS: LORazepam 0.5 MG tablet PO SCH ×3 (08:30→20:29)
[2023-06-09] MEDS: clotrimazole topical cream 15gm tube TP SCH ×2 (08:31→20:30)
[2023-06-09] MEDS: QUEtiapine 25mg tablet PO SCH ×3 (08:31→15:40)
[2023-06-09] MEDS: LORazepam 1 MG tablet PO SCH (11:53)
--- NOTE | 2023-06-09 13:55 | NUR ---
NURSING PROGRESS NOTE: Problem: Pt admitted on 5150 for DTO from our ER. Pt reported that he constantly has thoughts of killing people. He does not know where he can live. He is homeless, does not eat and not wearing shoes. Pt has history of Schizophrenia; Bipolar; Anxiety; & Antisocial. Interventions: Provided 1:1 assessment with therapeutic communication and active listening, provided clear and simple instructions, provided medication administration/education/monitoring, behavior monitoring and intervention as needed, reality orientation, maintained a safe and supportive environment, and Q15 minute safety checks. Response: Patient requested Nicotine lozenge after shift change. AM meds given with lozenge. Patient compliant with all treatments and medications. Pt asked to watch TV after breakfast. He remained awake until after lunch. After lunch pt was observed sleeping in his room. Pt endorses A/H. He states, "but they are fine." Plan: Patient is conserved and awaiting placement in [facility] for safe and therapeutic environment.
[2023-06-09 19:00] VITALS: RESP 16; O2SAT 96
[2023-06-09 20:23] VITALS: BP 128/75; PULSE 112; RESP 16; TEMP 98.1; O2SAT 96
[2023-06-09] MEDS: Melatonin 3mg tablet PO SCH (20:30)
[2023-06-09] MEDS: mirtazapine 15mg tablet PO SCH (20:30)
[2023-06-09] MEDS: quetiapine 100mg tablet PO SCH (20:31)
--- NOTE | 2023-06-09 23:10 | NUR ---
NURSING PROGRESS NOTE: Problem: Pt admitted on 5150 for DTO from our ER. Pt reported that he constantly has thoughts of killing people. He does not know where he can live. He is homeless, does not eat and not wearing shoes. Pt has history of Schizophrenia; Bipolar; Anxiety; & Antisocial. Interventions: Provided 1:1 assessment with therapeutic communication and active listening, provided clear and simple instructions, provided medication administration/education/monitoring, behavior monitoring and intervention as needed, reality orientation, maintained a safe and supportive environment, and Q15 minute safety checks. Response: Received pt. in room at change of shift. Pt. is pleasant and cooperative. When asked how he is doing pt. states "Im fine, just got done working out". Pt. paced the lion and spent most of his time in his room. No delusional statements made this shift. Denies SI/HI/AH/VH. Pt. is medication compliant. PRN nicotine lozenge provided this shift. Observed and appears to be sleeping without difficulty. Plan: Patient is conserved and awaiting placement in [facility] for safe and therapeutic environment.
--- NOTE | 2023-06-10 05:25 | NUR ---
INFORMATION MANAGEMENT MANAGER documentation: I have reviewed and agree with all interventions, assessments performed and documented by Jennifer MACIELN.
[2023-06-10] MEDS: NICOTINE POLACRILEX 2 MG LOZENGE BC PRN ×4 (06:19→20:54)
[2023-06-10 07:00] VITALS: RESP 16; O2SAT 97
[2023-06-10] MEDS: clotrimazole topical cream 15gm tube TP SCH ×2 (07:45→20:54)
[2023-06-10] MEDS: buPROPion 75mg tablet PO SCH (07:45)
[2023-06-10] MEDS: sennosides/docusate sodium tablet PO SCH ×2 (07:46→20:53)
[2023-06-10] MEDS: multivitamins, therapeutics tablet PO SCH (07:46)
[2023-06-10] MEDS: olanzapine 10mg tablet PO SCH (07:46)
[2023-06-10] MEDS: QUEtiapine 25mg tablet PO SCH ×3 (07:46→16:18)
[2023-06-10] MEDS: busPIRone 5mg tablet PO SCH ×3 (07:46→16:18)
[2023-06-10] MEDS: LORazepam 0.5 MG tablet PO SCH ×3 (07:46→20:53)
[2023-06-10 09:15] VITALS: BP 127/76; PULSE 82; RESP 16; TEMP 97.9; O2SAT 97
[2023-06-10] MEDS: LORazepam 1 MG tablet PO SCH (11:24)
--- NOTE | 2023-06-10 15:19 | NUR ---
NURSING PROGRESS NOTE: Problem: Pt admitted on 5150 for DTO from our ER. Pt reported that he constantly has thoughts of killing people. He does not know where he can live. He is homeless, does not eat and not wearing shoes. Pt has history of Schizophrenia; Bipolar; Anxiety; & Antisocial. Interventions: Provided 1:1 assessment with therapeutic communication with active listening, provided clear and simple instructions, provided medication administration/education/monitoring, behavior monitoring and intervention as needed, reality orientation, maintained a safe and supportive environment, and Q15 minute safety checks. Response: Pt up visiting and smiling after shift change. Pt compliant with morning assessment. Reports daily BM's. AM meds passes with lozenge. Patient compliant with all treatments and medications. Pt paced the halls after breakfast. Other than meals and snacks he spent the rest of the day sleeping. Pt endorses A/H. Plan: Per Dr. Meneses pt is at baseline awaiting placement.
[2023-06-10 19:00] VITALS: RESP 18; O2SAT 97
[2023-06-10 19:51] VITALS: BP 103/54; PULSE 70; RESP 18; TEMP 98.5; O2SAT 97
[2023-06-10] MEDS: mirtazapine 15mg tablet PO SCH (20:54)
[2023-06-10] MEDS: Melatonin 3mg tablet PO SCH (20:54)
[2023-06-10] MEDS: quetiapine 100mg tablet PO SCH (20:54)
--- NOTE | 2023-06-10 23:51 | NUR ---
NURSING PROGRESS NOTE: Problem: Pt admitted on 5150 for DTO from our ER. Pt reported that he constantly has thoughts of killing people. He does not know where he can live. He is homeless, does not eat and not wearing shoes. Pt has history of Schizophrenia; Bipolar; Anxiety; & Antisocial. Interventions: Provided 1:1 assessment with therapeutic communication with active listening, provided clear and simple instructions, provided medication administration/education/monitoring, behavior monitoring and intervention as needed, reality orientation, maintained a safe and supportive environment, and Q15 minute safety checks. Response: Received pt. in his room sitting quietly at change of shift. Pt. spent most of the night in his room except to come out for evening snack, water and nicotine lozenge. Pt. denies SI/HI/AH/VH. Pt. is cooperative with medications. Observed and appears to be sleeping without difficulty. Plan: Per Dr. Meneses pt is at baseline awaiting placement. Addendum: 06/11/23 at 0443 by Reyna Alicia RN ZACHARY documentation: I have reviewed all interventions, assessments performed and documented by ZACHARY Rodriguez.
[2023-06-11 07:00] VITALS: RESP 12; O2SAT 98
[2023-06-11 07:52] VITALS: BP 123/81; PULSE 71; RESP 12; TEMP 97.9; O2SAT 98
[2023-06-11] MEDS: multivitamins, therapeutics tablet PO SCH (08:27)
[2023-06-11] MEDS: LORazepam 0.5 MG tablet PO SCH ×3 (08:27→20:18)
[2023-06-11] MEDS: buPROPion 75mg tablet PO SCH (08:27)
[2023-06-11] MEDS: busPIRone 5mg tablet PO SCH ×3 (08:27→15:38)
[2023-06-11] MEDS: sennosides/docusate sodium tablet PO SCH ×2 (08:27→20:18)
[2023-06-11] MEDS: QUEtiapine 25mg tablet PO SCH ×3 (08:27→15:38)
[2023-06-11] MEDS: olanzapine 10mg tablet PO SCH (08:27)
[2023-06-11] MEDS: clotrimazole topical cream 15gm tube TP SCH ×2 (08:28→20:20)
[2023-06-11] MEDS: NICOTINE POLACRILEX 2 MG LOZENGE BC PRN ×3 (08:28→19:17)
[2023-06-11] MEDS: quetiapine 100mg tablet PO PRN (09:01)
--- NOTE | 2023-06-11 12:09 | NUR ---
PLACEMENT UPDATE Екатерина from [facility] in [place] called to request updated notes on Chan. Advocated for Chan and provided context to any behavioral concerns. Emailed requested notes and med list. Екатерина Queen-# [phone] ext [phone] Email: [email or web address] MARIA LUISA Villeda
[2023-06-11] MEDS: LORazepam 1 MG tablet PO SCH (12:46)
--- NOTE | 2023-06-11 13:32 | NUR ---
Pt attended group today. Brandie Rodriguez LCSW
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
[2023-06-11 19:00] VITALS: RESP 16; O2SAT 97
[2023-06-11 20:00] VITALS: BP 115/55; PULSE 75; RESP 16; TEMP 98; O2SAT 97
[2023-06-11] MEDS: mirtazapine 15mg tablet PO SCH (20:19)
[2023-06-11] MEDS: quetiapine 100mg tablet PO SCH (20:19)
[2023-06-11] MEDS: Melatonin 3mg tablet PO SCH (20:19)
--- NOTE | 2023-06-11 21:00 | NUR ---
Nursing Progress Note: Problem : Pt admitted on 5150 for DTO from our ER. Pt reported that he constantly has thoughts of killing people. He does not know where he can live. He is homeless, does not eat and not wearing shoes. Pt has history of Schizophrenia; Bipolar; Anxiety; & Antisocial. Interventions : Maintained a safe and supportive environment, ensured contract for safety, provided clear and simple instructions, attempted to orient to reality, monitored behavior and provided redirection and intervention as needed, and maintained Q 15min safety checks. Response : Patient was received awake and in the rec room at shift change. Patient watched TV in the rec room and was appropriate with peers and staff. Patient denies SI and HI. Patient reports A/V hallucinations stating, I always see and hear s, all kinds of s. Patient reports his sleep the previous night was continuous. Patient reports his appetite is good. Patient was med compliant and requested a lozenge once this shift. Patient continued to watch TV in the rec room with peers until lights out. At lights out patient returned to his room to rest. Plan : Pt. continues to require a safe and supportive environment and is awaiting placement.
[2023-06-12] MEDS: NICOTINE POLACRILEX 2 MG LOZENGE BC PRN ×4 (01:01→19:51)
[2023-06-12 07:00] VITALS: RESP 12; O2SAT 96
[2023-06-12] MEDS: LORazepam 0.5 MG tablet PO SCH ×3 (07:36→20:04)
[2023-06-12] MEDS: olanzapine 10mg tablet PO SCH (07:36)
[2023-06-12] MEDS: busPIRone 5mg tablet PO SCH ×3 (07:36→16:30)
[2023-06-12] MEDS: QUEtiapine 25mg tablet PO SCH ×3 (07:36→16:30)
[2023-06-12] MEDS: sennosides/docusate sodium tablet PO SCH ×2 (07:36→20:05)
[2023-06-12] MEDS: multivitamins, therapeutics tablet PO SCH (07:36)
[2023-06-12] MEDS: buPROPion 75mg tablet PO SCH (07:36)
[2023-06-12] MEDS: clotrimazole topical cream 15gm tube TP SCH ×2 (07:37→20:06)
[2023-06-12 07:48] VITALS: BP 132/66; PULSE 78; RESP 12; TEMP 97.5; O2SAT 96
--- NOTE | 2023-06-12 11:47 | NUR ---
PLACEMENT UPDATE Packet is currently in Q at [facility], Keven, MOOKIE Paul, Kristy Bravo. He has been declined at [facility]. MARIA LUISA Villeda
[2023-06-12] MEDS: LORazepam 1 MG tablet PO SCH (12:00)
--- NOTE | 2023-06-12 14:40 | NUR ---
Nursing Progress Note: Problem : Pt admitted on 5150 for DTO from our ER. Pt reported that he constantly has thoughts of killing people. He does not know where he can live. He is homeless, does not eat and not wearing shoes. Pt has history of Schizophrenia; Bipolar; Anxiety; & Antisocial. Interventions : Maintained a safe and supportive environment, ensured contract for safety, provided clear and simple instructions, attempted to orient to reality, monitored behavior and provided redirection and intervention as needed, and maintained Q 15min safety checks. Response : Received pt. sleeping in bed at the beginning of the shift, he awoke and attended breakfast in the Group Room, and afterwards retreated back to bed. Pt. napped intermittently throughout the shift. He was observed to be interacting appropriately and did not exhibit any episodes of increased agitation or anxiety as he had done yesterday. Pt. does continue to exhibit some loud and hysterical inappropriate laughter at intervals. 1:1 was completed later at bedside. Pt. presents as guarded and denies all mental health signs and symptoms stating in a dismissive manner, "I'm okay." He does endorse ongoing A/RODRIGUEZ and states, "I can carry on a conversation with them." Plan : Pt. continues to require a safe and supportive environment and is awaiting placement.
--- NOTE | 2023-06-12 15:08 | NUR ---
Sent updated notes to [place] office (06/04-06/10). MARIA LUISA Villeda
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
[2023-06-12 19:00] VITALS: RESP 16; O2SAT 98
[2023-06-12 20:00] VITALS: BP 134/83; PULSE 80; RESP 16; TEMP 97.3; O2SAT 98
[2023-06-12] MEDS: mirtazapine 15mg tablet PO SCH (20:05)
[2023-06-12] MEDS: quetiapine 100mg tablet PO SCH (20:05)
[2023-06-12] MEDS: Melatonin 3mg tablet PO SCH (20:05)
--- NOTE | 2023-06-12 21:00 | NUR ---
Nursing Progress Note: Problem : Pt admitted on 5150 for DTO from our ER. Pt reported that he constantly has thoughts of killing people. He does not know where he can live. He is homeless, does not eat and not wearing shoes. Pt has history of Schizophrenia; Bipolar; Anxiety; & Antisocial. Interventions : Maintained a safe and supportive environment, ensured contract for safety, provided clear and simple instructions, attempted to orient to reality, monitored behavior and provided redirection and intervention as needed, and maintained Q 15min safety checks. Response : Patient was received awake in his room upon shift change. Patient watched TV in the rec room and had appropriate interactions with peers. Patient joined peers in the community room for snack. Patient denies SI and HI. Patient denies visual hallucinations and reports auditory hallucinations. Patient states, The voices are different they are able to hold a conversation now, they are funny and make me laugh. Patient was medication compliant and requested nicotine lozenges throughout shift. Patient returned to his room at lights out and was noted sleeping shortly after. Patient awoke and requested PRN Seroquel to help him get back to sleep. Plan : Pt. continues to require a safe and supportive environment and is awaiting placement.
[2023-06-13] MEDS: quetiapine 100mg tablet PO PRN (02:55)
[2023-06-13 07:00] VITALS: RESP 18; O2SAT 98
[2023-06-13] MEDS: sennosides/docusate sodium tablet PO SCH ×2 (07:17→20:09)
[2023-06-13] MEDS: busPIRone 5mg tablet PO SCH ×3 (07:17→15:39)
[2023-06-13] MEDS: buPROPion 75mg tablet PO SCH (07:17)
[2023-06-13] MEDS: LORazepam 0.5 MG tablet PO SCH ×3 (07:17→20:09)
[2023-06-13] MEDS: multivitamins, therapeutics tablet PO SCH (07:17)
[2023-06-13] MEDS: QUEtiapine 25mg tablet PO SCH ×3 (07:17→15:39)
[2023-06-13] MEDS: olanzapine 10mg tablet PO SCH (07:17)
[2023-06-13] MEDS: clotrimazole topical cream 15gm tube TP SCH ×2 (07:18→20:10)
[2023-06-13] MEDS: NICOTINE POLACRILEX 2 MG LOZENGE BC PRN ×5 (07:18→21:18)
[2023-06-13 08:00] VITALS: BP 129/85; PULSE 77; RESP 18; TEMP 97.4; O2SAT 98
[2023-06-13] MEDS: LORazepam 1 MG tablet PO SCH (12:17)
--- NOTE | 2023-06-13 16:08 | NUR ---
Nursing Progress Note: Problem : Pt admitted on 5150 for DTO from our ER. Pt reported that he constantly has thoughts of killing people. He does not know where he can live. He is homeless, does not eat and not wearing shoes. Pt has history of Schizophrenia; Bipolar; Anxiety; & Antisocial. Interventions : Maintained a safe and supportive environment, ensured contract for safety, provided clear and simple instructions, attempted to orient to reality, monitored behavior and provided redirection and intervention as needed, and maintained Q 15min safety checks. Response : Received pt. sleeping in bed at the beginning of the shift, he awoke early and came to the nurse's station requesting a Nicotine Lozenge. Pt. was then observed to be up in the Group Room interacting appropriately with others before breakfast. After breakfast, he returned to bed as is his routine and 1:1 was completed at bedside. Pt. denies any anxiety or depression and stated, "I'm okay." He endorses ongoing A/RODRIGUEZ and upon further questioning stated, "They are just conversations going on in my head." Pt. did not make any delusional statements. Pt. does continue to exhibit some loud and hysterical inappropriate laughter at intervals. Pt. napped intermittently during the shift, and did not exhibit any episodes of increased agitation or anxiety. Plan : Pt. continues to require a safe and supportive environment and is awaiting placement.
[2023-06-13 19:00] VITALS: RESP 16; O2SAT 98
[2023-06-13 19:08] VITALS: BP 121/87; PULSE 105; RESP 16; TEMP 97.8; O2SAT 98
[2023-06-13] MEDS: mirtazapine 15mg tablet PO SCH (20:09)
[2023-06-13] MEDS: quetiapine 100mg tablet PO SCH (20:10)
[2023-06-13] MEDS: Melatonin 3mg tablet PO SCH (20:58)
--- NOTE | 2023-06-13 23:00 | NUR ---
Nursing Progress Note: Problem : Pt admitted on 5150 for DTO from our ER. Pt reported that he constantly has thoughts of killing people. He does not know where he can live. He is homeless, does not eat and not wearing shoes. Pt has history of Schizophrenia; Bipolar; Anxiety; & Antisocial. Interventions : Maintained a safe and supportive environment, ensured contract for safety, provided clear and simple instructions, attempted to orient to reality, monitored behavior and provided redirection and intervention as needed, and maintained Q 15min safety checks. Response : Received patient awake in the community room at shift change. Patient watched TV and interacted properly with peers. Patient denies SI and HI. Patient reports auditory hallucinations. Patient reports the voices are present all the ti8me and never go away. Patient describes them as Having full on conversations. Patient denies visual hallucinations. Patient reports good sleep the previous night. Patient was med compliant and requested PRN nicotine lozenge. Patient continued to watch TV and returned to his room to rest at lights out. Plan : Pt. continues to require a safe and supportive environment and is awaiting placement.
[2023-06-14 07:00] VITALS: RESP 12; O2SAT 96
[2023-06-14] MEDS: LORazepam 0.5 MG tablet PO SCH ×3 (07:33→20:24)
[2023-06-14] MEDS: QUEtiapine 25mg tablet PO SCH ×3 (07:34→15:42)
[2023-06-14] MEDS: multivitamins, therapeutics tablet PO SCH (07:34)
[2023-06-14] MEDS: busPIRone 5mg tablet PO SCH ×3 (07:34→15:42)
[2023-06-14] MEDS: sennosides/docusate sodium tablet PO SCH ×2 (07:34→20:24)
[2023-06-14] MEDS: olanzapine 10mg tablet PO SCH (07:34)
[2023-06-14] MEDS: buPROPion 75mg tablet PO SCH (07:34)
[2023-06-14] MEDS: clotrimazole topical cream 15gm tube TP SCH ×2 (07:34→20:24)
[2023-06-14] MEDS: NICOTINE POLACRILEX 2 MG LOZENGE BC PRN ×4 (08:21→20:52)
[2023-06-14 08:26] VITALS: BP 127/71; PULSE 87; RESP 12; TEMP 97.9; O2SAT 96
[2023-06-14 08:32] VITALS: BP 127/71; PULSE 87; RESP 12; TEMP 97.9; O2SAT 96
[2023-06-14] MEDS: LORazepam 1 MG tablet PO SCH (11:58)
[2023-06-14 15:45] LABS: BASOPHILS # (AUTO) 0.1 X10'3 (0-0.2); BASOPHILS % (AUTO) 0.8 % (0-1); EOSINOPHILS # (AUTO) 0.1 X10'3 (0-0.9); EOSINOPHILS % (AUTO) 1.1 % (0-6); HEMATOCRIT 44.2 % (42.0-52.0); LYMPHOCYTES # (AUTO) 2.8 X10'3 (1.1-4.8); LYMPHOCYTES % (AUTO) 31.5 % (21-51); MEAN CORPUSCULAR HGB CONC 33.8 g/dL (33.0-36.5); MEAN CORPUSCULAR VOLUME 88.7 FL (78-98); MEAN PLATELET VOLUME 8.4 FL (7.4-10.4); MONOCYTES # (AUTO) 0.6 X10'3 (0-0.9); MONOCYTES % (AUTO) 7.3 % (2-12); NEUTROPHILS # (AUTO) 5.2 X10'3 (1.8-7.7); NEUTROPHILS % (AUTO) 59.3 % (42-75); PLATELET COUNT 216 X10'3 (140-440); RED BLOOD COUNT 4.99 X10'6 (4.70-6.10); WHITE BLOOD COUNT 8.9 X10'3 (4.5-11.0)
[2023-06-14 15:52] LABS: ALANINE AMINOTRANSFERASE 22 U/L (12-78); ALBUMIN 4.1 G/DL (3.4-5.0); ALBUMIN/GLOBULIN RATIO 1.2 (1.1-1.5); ALKALINE PHOSPHATASE 113 IU/L (46-116); ANION GAP 12 (8-16); ASPARTATE AMINO TRANSFERASE 14 U/L (10-37); BILIRUBIN,TOTAL 0.4 MG/DL (0.1-1.0); BLOOD UREA NITROGEN 14 MG/DL (7-18); BUN/CREATININE RATIO 13.2 (10.0-20.0); CALCIUM 8.9 MG/DL (8.5-10.1); CHLORIDE 103 MMOL/L (99-107); CREATININE 1.06 MG/DL (0.60-1.10); GLUCOSE 118 MG/DL (70-104); SODIUM 141 MMOL/L (135-145); TOTAL CARBON DIOXIDE 26.3 MMOL/L (24-32); TOTAL PROTEIN 7.4 G/DL (6.4-8.2); eGFR 85 ML/MIN
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
[2023-06-14 18:34] VITALS: RESP 12; O2SAT 96
[2023-06-14 19:28] VITALS: BP 110/63; PULSE 106; RESP 16; TEMP 96.5; O2SAT 95
[2023-06-14] MEDS: quetiapine 100mg tablet PO SCH (20:24)
[2023-06-14] MEDS: Melatonin 3mg tablet PO SCH (20:24)
[2023-06-14] MEDS: mirtazapine 15mg tablet PO SCH (20:24)
--- NOTE | 2023-06-14 21:49 | NUR ---
Nursing Progress Note: Problem : Pt admitted on 5150 for DTO from our ER. Pt reported that he constantly has thoughts of killing people. He does not know where he can live. He is homeless, does not eat and not wearing shoes. Pt has history of Schizophrenia; Bipolar; Anxiety; & Antisocial. Interventions : 1:1 assessment, therapeutic conversation, active listening, medication administration/education/monitoring, behavior monitoring and intervention as needed; provided reality orientation, verbal de-escalation, limit setting, distraction, redirection, positive reinforcement, and Q15 minute safety checks. Response : Pt was in hallway at change of shift working on some art work. Pt spent time socializing with peers. States his day was good. Pt is pleasant and cooperative. Pt is often laughing loudly. Pt is cooperative with HS meds. Pt had snacks. Pt went to bed shortly after HS med pass Plan : Pt. continues to require a safe and supportive environment and is awaiting placement.
[2023-06-15 07:00] VITALS: RESP 16; O2SAT 99
[2023-06-15] MEDS: buPROPion 75mg tablet PO SCH (07:24)
[2023-06-15] MEDS: busPIRone 5mg tablet PO SCH ×3 (07:24→16:50)
[2023-06-15] MEDS: olanzapine 10mg tablet PO SCH (07:24)
[2023-06-15] MEDS: LORazepam 0.5 MG tablet PO SCH ×3 (07:24→20:18)
[2023-06-15] MEDS: multivitamins, therapeutics tablet PO SCH (07:24)
[2023-06-15] MEDS: QUEtiapine 25mg tablet PO SCH ×3 (07:24→16:50)
[2023-06-15] MEDS: sennosides/docusate sodium tablet PO SCH ×2 (07:24→20:18)
[2023-06-15] MEDS: clotrimazole topical cream 15gm tube TP SCH ×2 (07:54→20:18)
[2023-06-15 08:00] VITALS: BP 107/62; PULSE 64; RESP 16; TEMP 98.9; O2SAT 99
[2023-06-15] MEDS: NICOTINE POLACRILEX 2 MG LOZENGE BC PRN ×4 (08:26→23:09)
[2023-06-15] MEDS: LORazepam 1 MG tablet PO SCH (11:42)
--- NOTE | 2023-06-15 14:17 | NUR ---
Nursing Progress Note: Problem : Pt admitted on 5150 for DTO from our ER. Pt reported that he constantly has thoughts of killing people. He does not know where he can live. He is homeless, does not eat and not wearing shoes. Pt has history of Schizophrenia; Bipolar; Anxiety; & Antisocial. Interventions : 1:1 assessment, therapeutic conversation, active listening, medication administration/education/monitoring, behavior monitoring and intervention as needed; provided distraction, redirection, positive reinforcement, and Q15 minute safety checks. Response : Pt was up for breakfast and cooperative with medications. Pt showered. Pt has been mostly isolative to self and room today. Pt admitted to , denied CAH. Pt reports that the voices carry on conversations back and forth in his head. Pt reports, "I've just been sleeping today." No verbal outbursts or episodes of agitation today. Plan : Pt. continues to require a safe and supportive environment and is awaiting placement.
[2023-06-15 18:31] VITALS: RESP 16; O2SAT 99
[2023-06-15 19:42] VITALS: BP 118/60; PULSE 70; RESP 16; TEMP 98.1; O2SAT 97
[2023-06-15] MEDS: mirtazapine 15mg tablet PO SCH (20:18)
[2023-06-15] MEDS: Melatonin 3mg tablet PO SCH (20:18)
[2023-06-15] MEDS: quetiapine 100mg tablet PO SCH (20:18)
--- NOTE | 2023-06-15 22:47 | NUR ---
Nursing Progress Note: Problem : Pt admitted on 515 for DTO from our ER. Pt reported that he constantly has thoughts of killing people. He does not know where he can live. He is homeless, does not eat and not wearing shoes. Pt has history of Schizophrenia; Bipolar; Anxiety; & Antisocial. Interventions : 1:1 assessment, therapeutic conversation, active listening, medication administration/education/monitoring, behavior monitoring and intervention as needed; provided distraction, redirection, positive reinforcement, and Q15 minute safety checks. Response : Pt was in his room at change of shift listening to head phones. Pt came out of his room to socialize and is pleasant and laughing and singing. Pt reports a BM today and states he hates getting asked the same questions all the time. Pt report AH, denies s/i. Pt took HS meds and requested a nicotine lozenge "at 9 O'clock." Pt fell asleep before lozenge was given. Plan : Pt. continues to require a safe and supportive environment and is awaiting placement. Addendum: 06/15/23 at 2310 by Reyna Alicia RN pt up requesting snacks and prn nicotine lozenge.
[2023-06-16 06:45] VITALS: RESP 16; O2SAT 99
[2023-06-16] MEDS: NICOTINE POLACRILEX 2 MG LOZENGE BC PRN ×5 (06:50→20:13)
[2023-06-16 07:49] VITALS: BP 137/92; PULSE 98; RESP 16; TEMP 97.7; O2SAT 96
[2023-06-16] MEDS: LORazepam 0.5 MG tablet PO SCH ×3 (07:51→20:13)
[2023-06-16] MEDS: multivitamins, therapeutics tablet PO SCH (07:51)
[2023-06-16] MEDS: sennosides/docusate sodium tablet PO SCH ×2 (07:51→20:14)
[2023-06-16] MEDS: QUEtiapine 25mg tablet PO SCH ×3 (07:51→16:09)
[2023-06-16] MEDS: busPIRone 5mg tablet PO SCH ×3 (07:51→16:13)
[2023-06-16] MEDS: olanzapine 10mg tablet PO SCH (07:51)
[2023-06-16] MEDS: buPROPion 75mg tablet PO SCH (07:51)
[2023-06-16] MEDS: clotrimazole topical cream 15gm tube TP SCH ×2 (09:10→20:00)
[2023-06-16] MEDS: LORazepam 1 MG tablet PO SCH (12:10)
--- NOTE | 2023-06-16 17:21 | NUR ---
NURSING PROGRESS NOTE: Problem: Pt admitted on 5150 for DTO from our ER. Pt reported that he constantly has thoughts of killing people. He does not know where he can live. He is homeless, does not eat and not wearing shoes. Pt has history of Schizophrenia; Bipolar; Anxiety; & Antisocial. Interventions: Provided 1:1 assessment, therapeutic communication, active listening, provided clear and simple instructions, medication administration/education/monitoring, behavior monitoring and intervention as needed, positive reinforcement, reality orientation, maintained a safe and supportive environment, and Q15 minute safety checks. Response: Patient got up early so he could have a Nicotine lozenge before breakfast. He ate his meal and was compliant with all AM medications. Patient napped after breakfast but got up for morning group. He denies MH symptoms today. Patient continues to be polite, pleasant, and cooperative. 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 Plan: Patient is conserved and awaiting placement in [facility] for safe and therapeutic environment.
[2023-06-16 19:29] VITALS: BP 136/67; PULSE 72; RESP 18; TEMP 97.6; O2SAT 96
[2023-06-16] MEDS: Melatonin 3mg tablet PO SCH (20:14)
[2023-06-16] MEDS: quetiapine 100mg tablet PO SCH (20:14)
[2023-06-16] MEDS: mirtazapine 15mg tablet PO SCH (20:14)
--- NOTE | 2023-06-17 00:07 | NUR ---
NURSING PROGRESS NOTE: Chan Problem: Pt admitted on 5150 for DTO from our ER. Pt reported that he constantly has thoughts of killing people. He does not know where he can live. He is homeless, does not eat and not wearing shoes. Pt has history of Schizophrenia; Bipolar; Anxiety; & Antisocial. Interventions: Provided 1:1 assessment, therapeutic communication, active listening, provided clear and simple instructions, medication administration/education/monitoring, behavior monitoring and intervention as needed, positive reinforcement, reality orientation, maintained a safe and supportive environment, and Q15 minute safety checks. Response: Patient up on the unit, friendly and polite with peers and staff. He paces between his room and the community room. He doesnt deny AH but shrugs his shoulders when asked to describe them. Pt participates in snacks and takes all HS medications. Plan: Patient is conserved and awaiting placement in [facility] for safe and therapeutic environment.
[2023-06-17] MEDS: NICOTINE POLACRILEX 2 MG LOZENGE BC PRN ×4 (06:47→18:43)
[2023-06-17 07:26] VITALS: BP 132/82; PULSE 69; RESP 18; TEMP 97.9; O2SAT 65
[2023-06-17] MEDS: LORazepam 0.5 MG tablet PO SCH ×3 (07:38→20:10)
[2023-06-17] MEDS: QUEtiapine 25mg tablet PO SCH ×3 (07:38→16:39)
[2023-06-17] MEDS: busPIRone 5mg tablet PO SCH ×3 (07:39→16:40)
[2023-06-17] MEDS: buPROPion 75mg tablet PO SCH (07:39)
[2023-06-17] MEDS: olanzapine 10mg tablet PO SCH (07:40)
[2023-06-17] MEDS: sennosides/docusate sodium tablet PO SCH ×2 (07:40→20:10)
[2023-06-17] MEDS: multivitamins, therapeutics tablet PO SCH (07:40)
--- NOTE | 2023-06-17 07:55 | NUR ---
F/u 06/17: Pt PO mostly 100% avg regular diet and double eggs WB in addition to snacks meeting estimated needs. LBM 7 per EMR. No nutrition interventions. Will continue to follow. Recommendations: 1. Continue regular diet; double eggs WB for satiety 2. Routine bowel care 3. Weekly scaled wts Addendum: 06/17/23 at [address] Amended: Links added. Addendum: 06/17/23 at [address] F/u 06/17: Pt PO mostly 100% avg regular diet and double eggs WB in addition to snacks meeting estimated needs. LBM 715 receiving routine senna-s but also moderate daily BM's documented in EMR. No nutrition interventions. Will continue to follow. Recommendations: 1. Continue regular diet; double eggs WB for satiety 2. Routine bowel care 3. Weekly scaled wts
[2023-06-17 08:00] VITALS: RESP 18; O2SAT 95
[2023-06-17] MEDS: clotrimazole topical cream 15gm tube TP SCH ×2 (08:00→20:00)
[2023-06-17] MEDS: LORazepam 1 MG tablet PO SCH (12:48)
--- NOTE | 2023-06-17 16:23 | NUR ---
NURSING PROGRESS NOTE: Chan Problem: Pt admitted on 5150 for DTO from our ER. Pt reported that he constantly has thoughts of killing people. He does not know where he can live. He is homeless, does not eat and not wearing shoes. Pt has history of Schizophrenia; Bipolar; Anxiety; & Antisocial. Interventions: Provided 1:1 assessment, therapeutic communication, active listening, provided clear and simple instructions, medication administration/education/monitoring, behavior monitoring and intervention as needed, positive reinforcement, reality orientation, maintained a safe and supportive environment, and Q15 minute safety checks. Response: Patient was received sleeping at beginning of shift. Patient woke up to participate in breakfast and take morning medications. Patient retuned to room where he was observed pacing and listening to music. Patient appeared to be responding to internal stimuli due to him arguing although being the only person in the room. Patient requested nicotine lozenge x2. Patient attitude and positive and social. Plan: Patient is conserved and awaiting placement in [facility] for safe and therapeutic environment.
--- NOTE | 2023-06-17 18:24 | NUR ---
LOOM FIXER SUPERVISOR documentation: I have reviewed all intervention and assessments performed and documented by ZACHARY Sierra.
[2023-06-17 19:00] VITALS: RESP 16; O2SAT 97
[2023-06-17 20:00] VITALS: BP 126/57; PULSE 62; RESP 16; TEMP 98.1; O2SAT 97
[2023-06-17] MEDS: mirtazapine 15mg tablet PO SCH (20:09)
[2023-06-17] MEDS: quetiapine 100mg tablet PO SCH (20:10)
[2023-06-17] MEDS: Melatonin 3mg tablet PO SCH (20:10)
--- NOTE | 2023-06-18 04:47 | NUR ---
NURSING PROGRESS NOTE: Chan Problem: Pt admitted on 5150 for DTO from our ER. Pt reported that he constantly has thoughts of killing people. He does not know where he can live. He is homeless, does not eat and not wearing shoes. Pt has history of Schizophrenia; Bipolar; Anxiety; & Antisocial. Interventions: Provided 1:1 assessment, therapeutic communication, active listening, provided clear and simple instructions, medication administration/education/monitoring, behavior monitoring and intervention as needed, positive reinforcement, reality orientation, maintained a safe and supportive environment, and Q15 minute safety checks. Response: Pt received on unit, greeted typewriter mechanic and requested nicotine lozenge. Pt has no intent to harm others. His appearance is well groomed. His orientation is oriented x 4. His speech is clear. His Thought processes is organized. His thought content is normal. His insight is average. His judgement is poor. His mood is slightly anxious but per patient manageable. His Affect is constricted. His memory is average. He has no cognitive deficits. During 1:1 interview, Pt spoke of a book called the Four agreements. Financial Adviser asked which agreement has affected his life. He stated he doesnt take things personally. He has had a plethora of life events that would be able to disintegrate his life but choosing to let things go has really helped him get through. Pt has no sleep disturbances. Pt reports when he was on Suboxone, he would sleep all day. His appetite is good. He has no current adverse reactions to meds. He reports to be learning about addiction. He states he is an addict and has been taking drugs since an early age. He reports a prior life event of injecting alcohol billiard parlor manager in his veins in an attempt to end his life. He stated he was drunk for 4 days. Chan is still working toward a picnic with his family by attending groups a few times a week. He reports his POC is appropriate. Pt engaged inquired of typewriter mechanic how my day was. Conversation was appropriate. Chan was compliant with all medications. Pt chose to go to bed early this shift. Pt was awake briefly at 0300hrs for a snack. Pt will continue to be monitored for adverse reactions to medications. Plan: Patient is conserved and awaiting placement in [facility] for safe and therapeutic environment.
--- NOTE | 2023-06-18 04:52 | NUR ---
HYDRAULIC LIFT OPERATOR documentation: I have reviewed all intervention and assessments performed and documented by ZACHARY Davis.
[2023-06-18] MEDS: NICOTINE POLACRILEX 2 MG LOZENGE BC PRN ×2 (06:48→17:48)
[2023-06-18 07:00] VITALS: RESP 18; O2SAT 98
[2023-06-18 07:37] VITALS: BP 138/84; PULSE 87; RESP 18; TEMP 97.5; O2SAT 98
[2023-06-18] MEDS: QUEtiapine 25mg tablet PO SCH ×3 (08:18→16:36)
[2023-06-18] MEDS: multivitamins, therapeutics tablet PO SCH (08:18)
[2023-06-18] MEDS: olanzapine 10mg tablet PO SCH (08:18)
[2023-06-18] MEDS: LORazepam 0.5 MG tablet PO SCH ×3 (08:18→21:40)
[2023-06-18] MEDS: buPROPion 75mg tablet PO SCH (08:18)
[2023-06-18] MEDS: clotrimazole topical cream 15gm tube TP SCH ×2 (08:19→21:42)
[2023-06-18] MEDS: busPIRone 5mg tablet PO SCH ×3 (08:19→16:35)
[2023-06-18] MEDS: sennosides/docusate sodium tablet PO SCH ×2 (08:19→21:40)
[2023-06-18] MEDS: LORazepam 1 MG tablet PO SCH (12:48)
--- NOTE | 2023-06-18 13:27 | NUR ---
NURSING PROGRESS NOTE: Chan Problem: Pt admitted on 5150 for DTO from our ER. Pt reported that he constantly has thoughts of killing people. He does not know where he can live. He is homeless, does not eat and not wearing shoes. Pt has history of Schizophrenia; Bipolar; Anxiety; & Antisocial. Interventions: Provided 1:1 assessment, therapeutic communication, active listening, provided clear and simple instructions, medication administration/education/monitoring, behavior monitoring and intervention as needed, positive reinforcement, reality orientation, maintained a safe and supportive environment, and Q15 minute safety checks. Response: Patient was asleep at change of shift and up for breakfast. Patient took his meds after breakfast. Patient was up and walking around in his room. Patient was calm and cooperative. No distress observed. Patient denies SI/HI. Patient states he always is hearing voices and conversations and none of the medication has stopped the voices. Patient states he is doing fine. During Q 15 rounds patient was seen by Tech with a pillowcase around his neck. Once he saw the Tech, the patient dropped the pillowcase to the floor. Patient's pillow case was taken away from him. Patient is having an interview for possible placement in the Credit Operations Specialist's office at this time. Patient is happy about the interview. Plan: Patient is conserved and awaiting placement in [facility] for safe and therapeutic environment.
--- NOTE | 2023-06-18 14:51 | NUR ---
ACCEPTED AT [facility] IN [place] Chan has been accepted to [facility]. They do have beds available. It is unknown at this time when he will discharge. MARIA LUISA Villeda
[2023-06-18 19:00] VITALS: BP 120/70; PULSE 71; RESP 16; TEMP 97.8; O2SAT 97
[2023-06-18] MEDS: mirtazapine 15mg tablet PO SCH (21:39)
[2023-06-18] MEDS: quetiapine 100mg tablet PO SCH (21:40)
[2023-06-18] MEDS: Melatonin 3mg tablet PO SCH (21:40)
--- NOTE | 2023-06-19 04:23 | NUR ---
NURSING PROGRESS NOTE: Chan Problem: Pt admitted on 5150 for DTO from our ER. Pt reported that he constantly has thoughts of killing people. He does not know where he can live. He is homeless, does not eat and not wearing shoes. Pt has history of Schizophrenia; Bipolar; Anxiety; & Antisocial. Interventions: Provided 1:1 assessment, therapeutic communication, active listening, provided clear and simple instructions, medication administration/education/monitoring, behavior monitoring and intervention as needed, positive reinforcement, reality orientation, maintained a safe and supportive environment, and Q15 minute safety checks. Response: Pt received on unit sleeping in room. Pt did not participate in snack. He slept throughout shift. Pt did not participate in 1:1 assessment due to wanting to sleep. Pt compliant with meds. His appearance is disheveled. Pt has no sleep disturbances. Pt will continue to be monitored for adverse reactions to medications. Pt was recently accepted to [facility] in [place], [place]. Plan: Patient is conserved, awaiting placement with no discharge date set, and therapeutic environment. Addendum: 06/19/23 at 0551 by Kate Cardona RN I have reviewed the LATEX FOAM WORKER note. Kate Cardona RN
[2023-06-19] MEDS: NICOTINE POLACRILEX 2 MG LOZENGE BC PRN ×5 (06:07→21:33)
[2023-06-19 07:27] VITALS: BP 124/73; PULSE 82; RESP 12; TEMP 97.8; O2SAT 97
[2023-06-19 07:30] VITALS: RESP 12; O2SAT 97
[2023-06-19] MEDS: sennosides/docusate sodium tablet PO SCH ×2 (07:34→21:32)
[2023-06-19] MEDS: buPROPion 75mg tablet PO SCH (07:34)
[2023-06-19] MEDS: busPIRone 5mg tablet PO SCH ×3 (07:34→16:07)
[2023-06-19] MEDS: olanzapine 10mg tablet PO SCH (07:34)
[2023-06-19] MEDS: QUEtiapine 25mg tablet PO SCH ×3 (07:34→16:06)
[2023-06-19] MEDS: LORazepam 0.5 MG tablet PO SCH ×3 (07:34→21:33)
[2023-06-19] MEDS: multivitamins, therapeutics tablet PO SCH (07:34)
[2023-06-19] MEDS: clotrimazole topical cream 15gm tube TP SCH ×2 (07:35→21:38)
[2023-06-19] MEDS: LORazepam 1 MG tablet PO SCH (11:09)
--- NOTE | 2023-06-19 16:26 | NUR ---
NURSING PROGRESS NOTE: Chan Problem: Pt admitted on 5150 for DTO from our ER. Pt reported that he constantly has thoughts of killing people. He does not know where he can live. He is homeless, does not eat and not wearing shoes. Pt has history of Schizophrenia; Bipolar; Anxiety; & Antisocial. Interventions: Provided 1:1 assessment, therapeutic communication, active listening, provided clear and simple instructions, medication administration/education/monitoring, behavior monitoring and intervention as needed, positive reinforcement, reality orientation, maintained a safe and supportive environment, and Q15 minute safety checks. Response: Patient received awake in hallway at beginning of shift. Patient took his medications cooperatively. Pt. ate all meals in the community room. Patient was calm and cooperative. No distress observed. Pt. intermittently napping throughout the day. Performed 1:1 at bedside. Patient denies SI/HI and VH. Pt endorses audio hallucinations stating I hear a voice in my head that consistently talks all the time okay bye. Plan: Patient is conserved and awaiting placement in [facility] for safe and therapeutic environment.
[2023-06-19 19:00] VITALS: BP 145/103; PULSE 87; RESP 14; TEMP 97.4; O2SAT 96
[2023-06-19] MEDS: Melatonin 3mg tablet PO SCH (21:32)
[2023-06-19] MEDS: mirtazapine 15mg tablet PO SCH (21:32)
[2023-06-19] MEDS: quetiapine 100mg tablet PO SCH (21:32)
--- NOTE | 2023-06-20 05:32 | NUR ---
NURSING PROGRESS NOTE: Chan Problem: Pt admitted on 5149 for DTO from our ER. Pt reported that he constantly has thoughts of killing people. He does not know where he can live. He is homeless, does not eat and not wearing shoes. Pt has history of Schizophrenia; Bipolar; Anxiety; & Antisocial. Interventions: Provided 1:1 assessment, therapeutic communication, active listening, provided clear and simple instructions, medication administration/education/monitoring, behavior monitoring and intervention as needed, positive reinforcement, reality orientation, maintained a safe and supportive environment, and Q15 minute safety checks. Response: Pt received on unit ambulating to nurses station. Pt excited and looking [facility] [place]. He reports his day of discharge on Thursday. Pt engages in movie conversation with video games storywriter. Pt continues to be social with peers. Pt compliant with meds. Plan: Patient is conserved, awaiting placement 06/24, and therapeutic environment.
[2023-06-20] MEDS: NICOTINE POLACRILEX 2 MG LOZENGE BC PRN ×3 (06:38→18:39)
[2023-06-20 06:51] VITALS: RESP 12; O2SAT 97
[2023-06-20 08:00] VITALS: BP 137/89; PULSE 76; RESP 16; TEMP 97.7; O2SAT 98
[2023-06-20] MEDS: LORazepam 0.5 MG tablet PO SCH ×3 (08:02→20:05)
[2023-06-20] MEDS: clotrimazole topical cream 15gm tube TP SCH ×2 (08:02→20:06)
[2023-06-20] MEDS: olanzapine 10mg tablet PO SCH (08:02)
[2023-06-20] MEDS: QUEtiapine 25mg tablet PO SCH ×3 (08:02→16:26)
[2023-06-20] MEDS: buPROPion 75mg tablet PO SCH (08:03)
[2023-06-20] MEDS: sennosides/docusate sodium tablet PO SCH ×2 (08:03→20:05)
[2023-06-20] MEDS: busPIRone 5mg tablet PO SCH ×3 (08:03→16:26)
[2023-06-20] MEDS: multivitamins, therapeutics tablet PO SCH (08:03)
[2023-06-20] MEDS: LORazepam 1 MG tablet PO SCH (12:10)
--- NOTE | 2023-06-20 17:44 | NUR ---
Nursing Progress Note: Problem: Pt. is currently on a 5150 for being gravely disabled. Per 5150: You report you have not been eating due to "Paranoid delusions." Appears you are unable to utilize skilled nursing due to voices making her feel unsafe. On Admit pt was reporting S/I with a plan to slit her wrists, but was able to contract for safety while on the unit, Interventions: Maintained a safe and supportive environment, provided clear and simple instructions, ensured contract for safety. Provided active listening and positive encouragement, and maintained Q 15min safety checks. Response: Patient slept until breakfast time. She eats quickly, takes her medication, then goes back to bed. Patient slept until 1000 when her mother came to visit. Apparently her mother has now offered third green party assistance, so they will begin process of trying to turn T-CON off. She is reporting improvement in depression and it shows. Patient becomes less guarded and opens up a little more. She reports that her voices are not bad today. Patient says as long as she can get along with her step-dad, she will be happy staying with her mother. Plan: Pt. continues to require medication adjustments and a safe and supportive environment
[2023-06-20 18:39] VITALS: RESP 16; O2SAT 98
[2023-06-20 19:15] VITALS: BP 145/69; PULSE 89; RESP 20; TEMP 98.3; O2SAT 98
[2023-06-20] MEDS: Melatonin 3mg tablet PO SCH (20:05)
[2023-06-20] MEDS: quetiapine 100mg tablet PO SCH (20:05)
[2023-06-20] MEDS: mirtazapine 15mg tablet PO SCH (20:05)
--- NOTE | 2023-06-20 20:53 | NUR ---
NURSING PROGRESS NOTE: Chan Problem: Pt admitted on 5150 for DTO from our ER. Pt reported that he constantly has thoughts of killing people. He does not know where he can live. He is homeless, does not eat and not wearing shoes. Pt has history of Schizophrenia; Bipolar; Anxiety; & Antisocial. Interventions: Provided 1:1 assessment, therapeutic communication, active listening, provided clear and simple instructions, medication administration/education/monitoring, behavior monitoring and intervention as needed, positive reinforcement, reality orientation, maintained a safe and supportive environment, and Q15 minute safety checks. Response: Pt was in his room at change of shift. Pt approached nurses station and said hello. Pt is in a pleasant mood, has no needs. Pt states his goal is to think positive so he can get transferred soon. Pt states his day was good. Pt socialized with others, had snacks and took HS meds before going to bed. Plan: Patient is conserved and awaiting placement in [facility] for safe and therapeutic environment.
[2023-06-21] MEDS: NICOTINE POLACRILEX 2 MG LOZENGE BC PRN ×5 (07:00→20:45)
[2023-06-21 07:26] VITALS: RESP 12; O2SAT 97
[2023-06-21] MEDS: sennosides/docusate sodium tablet PO SCH ×2 (07:59→20:44)
[2023-06-21] MEDS: QUEtiapine 25mg tablet PO SCH ×3 (07:59→15:41)
[2023-06-21] MEDS: LORazepam 0.5 MG tablet PO SCH ×5 (07:59→20:44)
[2023-06-21] MEDS: busPIRone 5mg tablet PO SCH ×3 (07:59→15:41)
[2023-06-21] MEDS: multivitamins, therapeutics tablet PO SCH (07:59)
[2023-06-21] MEDS: clotrimazole topical cream 15gm tube TP SCH ×2 (08:00→20:45)
[2023-06-21] MEDS: buPROPion 75mg tablet PO SCH (08:00)
[2023-06-21] MEDS: olanzapine 10mg tablet PO SCH (08:00)
[2023-06-21 08:52] VITALS: BP 133/86; PULSE 68; RESP 18; TEMP 97.5; O2SAT 97
--- NOTE | 2023-06-21 11:32 | NUR ---
NURSING PROGRESS NOTE: Problem: Pt admitted on 5150 for DTO from our ER. Pt reported that he constantly has thoughts of killing people. He does not know where he can live. He is homeless, does not eat and not wearing shoes. Pt has history of Schizophrenia; Bipolar; Anxiety; & Antisocial. Interventions: Provided 1:1 assessment, therapeutic communication, active listening, provided clear and simple instructions, medication administration/education/monitoring, behavior monitoring and intervention as needed, positive reinforcement, reality orientation, maintained a safe and supportive environment, and Q15 minute safety checks. Response: Patient came out of his room at shift change. He said good morning and requested a Nicotine Lozenge. Patient continues to be polite, sociable, and cooperative. He passes time napping or just laying around listening to headphones. Patient is compliant with all medications and his current regimen seems to be quite effective. Hes done well at getting stable and staying stable. He denies all MH symptoms. Patient knows he is discharging to a new [facility] and is happy to be doing so. Plan: Patient is conserved and awaiting placement in [facility] for safe and therapeutic environment.
[2023-06-21] MEDS: LORazepam 1 MG tablet PO SCH ×2 (13:24→13:39)
[2023-06-21 19:00] VITALS: RESP 18; O2SAT 98
[2023-06-21] MEDS: Melatonin 3mg tablet PO SCH (20:44)
[2023-06-21] MEDS: mirtazapine 15mg tablet PO SCH (20:44)
[2023-06-21] MEDS: quetiapine 100mg tablet PO SCH (20:44)
[2023-06-21 20:45] VITALS: BP 129/87; PULSE 64; RESP 18; TEMP 98; O2SAT 98
--- NOTE | 2023-06-22 05:09 | NUR ---
Nursing Progress Note: Chan Problem: Pt admitted on 5150 for DTO from our ER. Pt reported that he constantly has thoughts of killing people. He does not know where he can live. He is homeless, does not eat and not wearing shoes. Pt has history of Schizophrenia; Bipolar; Anxiety; & Antisocial. Interventions: Provided 1:1 assessment, therapeutic communication, active listening, provided clear and simple instructions, medication administration/education/monitoring, behavior monitoring and intervention as needed, positive reinforcement, reality orientation, maintained a safe and supportive environment, and Q15 minute safety checks. Response: Pt approach to the nurses station asking for a nicotine lozenge. Pt is pleasant and cooperative. Pt socializes at times but was in his room by medication pass. Pt is compliant with meds and stated the Lotrimin cream is helping his foot. Pt makes needs known. Pt made no delusional statements and denies SI/HI/VH and stated his voices are okay. No behavioral issues noted tonight. Monitor for safety. Plan: Patient is conserved and awaiting placement in [facility] for safe and therapeutic environment.
[2023-06-22 07:00] VITALS: RESP 14; O2SAT 96
[2023-06-22] MEDS: buPROPion 75mg tablet PO SCH (07:05)
[2023-06-22] MEDS: busPIRone 5mg tablet PO SCH ×3 (07:05→16:30)
[2023-06-22] MEDS: olanzapine 10mg tablet PO SCH (07:05)
[2023-06-22] MEDS: QUEtiapine 25mg tablet PO SCH ×3 (07:05→16:30)
[2023-06-22] MEDS: sennosides/docusate sodium tablet PO SCH ×2 (07:05→19:58)
[2023-06-22] MEDS: NICOTINE POLACRILEX 2 MG LOZENGE BC PRN ×4 (07:05→18:53)
[2023-06-22] MEDS: multivitamins, therapeutics tablet PO SCH (07:05)
[2023-06-22] MEDS: LORazepam 0.5 MG tablet PO SCH ×3 (07:05→19:58)
[2023-06-22] MEDS: clotrimazole topical cream 15gm tube TP SCH ×2 (07:56→19:59)
[2023-06-22 08:00] VITALS: BP 139/81; PULSE 80; RESP 14; TEMP 97.8; O2SAT 96
[2023-06-22] MEDS: LORazepam 1 MG tablet PO SCH (11:41)
--- NOTE | 2023-06-22 15:04 | NUR ---
Nursing Progress Note: Problem : Pt admitted on 5150 for DTO from our ER. Pt reported that he constantly has thoughts of killing people. He does not know where he can live. He is homeless, does not eat and not wearing shoes. Pt has history of Schizophrenia; Bipolar; Anxiety; & Antisocial. Interventions : 1:1 assessment, therapeutic conversation, active listening, medication administration/education/monitoring, behavior monitoring and intervention as needed; provided distraction, redirection, positive reinforcement, and Q15 minute safety checks. Response : Pt was up before breakfast requesting a nicotine lozenge. He was cooperative with his scheduled medications. Pt admits to AH and describes it as a conversation going back and forth in his head that is not his own voice/own thoughts. Pt is excited that placement has been found for him. Plan : Pt has been accepted at [facility] in [place] with possible discharge later this week.
[2023-06-22] MEDS ORDERED: QUET25TA36 PO (16:16)
[2023-06-22] MEDS ORDERED: ATI1T PO (16:16)
[2023-06-22] MEDS ORDERED: MELA3TAB39 PO (16:16)
[2023-06-22] MEDS ORDERED: MIRT-87 PO (16:16)
[2023-06-22] MEDS ORDERED: OLAN10TA73 PO (16:16)
[2023-06-22] MEDS ORDERED: MULT-25 PO (16:16)
[2023-06-22] MEDS ORDERED: BUSP15TA3 PO (16:16)
[2023-06-22] MEDS ORDERED: NICO-907 BC (16:16)
[2023-06-22] MEDS ORDERED: BUPR-297 PO (16:16)
[2023-06-22] MEDS ORDERED: SENN-283 PO (16:16)
[2023-06-22] MEDS ORDERED: QUET100T34 PO (16:18)
[2023-06-22] MEDS ORDERED: LORA-269 PO (16:18)
[2023-06-22 19:00] VITALS: RESP 16; O2SAT 97
[2023-06-22] MEDS: mirtazapine 15mg tablet PO SCH (19:58)
[2023-06-22] MEDS: Melatonin 3mg tablet PO SCH (19:58)
[2023-06-22] MEDS: quetiapine 100mg tablet PO SCH (19:58)
[2023-06-22 20:00] VITALS: BP 127/67; PULSE 74; RESP 16; TEMP 97.7; O2SAT 97
--- NOTE | 2023-06-23 05:14 | NUR ---
Nursing Progress Note: Chan Problem: Pt admitted on 5150 for DTO from our ER. Pt reported that he constantly has thoughts of killing people. He does not know where he can live. He is homeless, does not eat and not wearing shoes. Pt has history of Schizophrenia; Bipolar; Anxiety; & Antisocial. Interventions: 1:1 assessment, therapeutic conversation, active listening, medication administration/education/monitoring, behavior monitoring and intervention as needed; provided distraction, redirection, positive reinforcement, and Q15 minute safety checks. Response: Pt visible on unit, asked web content writer for a nicotine lozenge. Pt is pleasant and cooperative. Pt endorses AH that have decreased but not gone. Pt denies SI/HI/VH. Pt started talking about being discharged, then started to say things like, I know how to hack into your money and then put a hit out on you that you paid for. He also talked about buying gun parts through the mail and being able to get a gun and not have to register it. I can make my own ammunition. Then he went on to say, I could kill you but Im a good person. Pt is medication compliant tonight. Pt was educated that he needs to keep taking his medications once he leaves here. Monitor for safety. Plan: Pt has been accepted at [facility] in [place] with possible discharge later this week.
[2023-06-23] MEDS: NICOTINE POLACRILEX 2 MG LOZENGE BC PRN ×5 (06:32→20:25)
[2023-06-23 07:00] VITALS: RESP 16; O2SAT 98
[2023-06-23] MEDS: LORazepam 0.5 MG tablet PO SCH ×3 (07:25→20:25)
[2023-06-23] MEDS: sennosides/docusate sodium tablet PO SCH ×2 (07:25→20:25)
[2023-06-23] MEDS: buPROPion 75mg tablet PO SCH (07:25)
[2023-06-23] MEDS: busPIRone 5mg tablet PO SCH ×3 (07:25→16:34)
[2023-06-23] MEDS: multivitamins, therapeutics tablet PO SCH (07:25)
[2023-06-23] MEDS: clotrimazole topical cream 15gm tube TP SCH ×2 (07:25→20:25)
[2023-06-23] MEDS: QUEtiapine 25mg tablet PO SCH ×3 (07:26→16:34)
[2023-06-23] MEDS: olanzapine 10mg tablet PO SCH (07:26)
[2023-06-23 07:30] VITALS: BP 130/77; PULSE 76; RESP 16; TEMP 97.6; O2SAT 98
[2023-06-23] MEDS: LORazepam 1 MG tablet PO SCH (11:36)
--- NOTE | 2023-06-23 12:14 | NUR ---
DISCHARGE-Thu06/24/23 AT 8:30 AM Chan has been accepted at [facility] in [place]. He will get picked up at 8:30 AM by Public Guardian. He has a one week supply of medications that needs to go with him. Please send him with water and snacks. MARIA LUISA Villeda
--- NOTE | 2023-06-23 14:17 | NUR ---
Nursing Progress Note: Problem : Pt admitted on 5150 for DTO from our ER. Pt reported that he constantly has thoughts of killing people. He does not know where he can live. He is homeless, does not eat and not wearing shoes. Pt has history of Schizophrenia; Bipolar; Anxiety; & Antisocial. Interventions : 1:1 assessment, therapeutic conversation, active listening, medication administration/education/monitoring, behavior monitoring and intervention as needed; provided distraction, redirection, positive reinforcement, and Q15 minute safety checks. Response : Pt was up before breakfast requesting water and a nicotine lozenge. Pt was heard laughing loudly to himself. Pt continues to endorse AH. Pt was pleasant and cooperative with his scheduled medications. Pt spent much of his time in his room today. Pt is looking forward to being discharged tomorrow. Plan : Pt is discharging tomorrow to [facility] in [place]. He will be picked up at 0830. He has a weeks worth of medications filled to go with him.
[2023-06-23 19:00] VITALS: RESP 18; O2SAT 98
[2023-06-23 20:00] VITALS: BP 122/83; PULSE 83; RESP 18; TEMP 97.8; O2SAT 98
[2023-06-23] MEDS: quetiapine 100mg tablet PO SCH (20:25)
[2023-06-23] MEDS: mirtazapine 15mg tablet PO SCH (20:25)
[2023-06-23] MEDS: Melatonin 3mg tablet PO SCH (20:25)
--- NOTE | 2023-06-24 05:01 | NUR ---
Nursing Progress Note: Problem: Pt admitted on 5150 for DTO from our ER. Pt reported that he constantly has thoughts of killing people. He does not know where he can live. He is homeless, does not eat and not wearing shoes. Pt has history of Schizophrenia; Bipolar; Anxiety; & Antisocial. Interventions: 1:1 assessment, therapeutic conversation, active listening, medication administration/education/monitoring, behavior monitoring and intervention as needed; provided distraction, redirection, positive reinforcement, and Q15 minute safety checks. Response: Pt is up and visible on unit. Pt socializes with staff and peers. Chan is pleasant and cooperative. He is excited about his discharge tomorrow. Pt denies SI/HI/VH and endorses that his voices come and go. Pt is medication compliant and educated on the importance of medication adherence when he leaves here. Pt was given a nicotine lozenge with HS med pass. No behavioral issues observed. Pt is in good spirits. Monitor for safety. Plan: Pt is discharging tomorrow to [facility] in [place]. He will be picked up at 0830. He has a weeks worth of medications filled to go with him.
[2023-06-24 07:00] VITALS: RESP 16; O2SAT 99
[2023-06-24] MEDS: sennosides/docusate sodium tablet PO SCH (07:23)
[2023-06-24] MEDS: LORazepam 0.5 MG tablet PO SCH (07:23)
[2023-06-24] MEDS: QUEtiapine 25mg tablet PO SCH (07:24)
[2023-06-24] MEDS: multivitamins, therapeutics tablet PO SCH (07:24)
[2023-06-24] MEDS: buPROPion 75mg tablet PO SCH (07:24)
[2023-06-24] MEDS: busPIRone 5mg tablet PO SCH (07:24)
[2023-06-24] MEDS: NICOTINE POLACRILEX 2 MG LOZENGE BC PRN (07:24)
[2023-06-24] MEDS: olanzapine 10mg tablet PO SCH (07:24)
[2023-06-24] MEDS: clotrimazole topical cream 15gm tube TP SCH (07:27)
[2023-06-24 08:00] VITALS: BP 134/68; PULSE 60; RESP 16; TEMP 98.2; O2SAT 99
--- NOTE | 2023-06-24 09:04 | NUR ---
Pt. discharged at 0905 to [facility] in [place]. Pt. escorted off the unit with staff and security. Pt left the unit ambulating independently. Pt belongings inventoried and given to the [facility] tow car driver. Pt discharge paperwork reviewed and given to pt, copy sent to pt. public guardian. Pt. medications given to the [facility] drive. Pt was happy, calm and looking forward to his new placement.
== END 2023-06-24 09:05 | DRG 751 ==
LOC: ER 12:02 → UNDOADMIN 10-10 14:30 → ED HOLD 10-10 14:30 → ADULT MH 10-10 15:32 → ED HOLD 10-10 15:32 → ADULT MH 10-14 18:22 → PCU 3S 02-16 01:05 → ADULT MH 02-16 01:05 → PCU 3S 02-16 01:19 → ADULT MH 02-16 01:19 → UNDODISIN 06-14 12:30
PROVIDERS: ADMIT Psychiatry & Neurology Psychiatry; ATTEND Psychiatry & Neurology Psychiatry
DX: F23 Brief psychotic disorder (principal); B19.20 Unspecified viral hepatitis C without hepatic coma; Z20.822 Contact with and (suspected) exposure to COVID-19; D72.829 Elevated white blood cell count, unspecified; F60.2 Antisocial personality disorder; N50.0 Atrophy of testis; F12.10 Cannabis abuse, uncomplicated; F17.210 Nicotine dependence, cigarettes, uncomplicated; F15.10 Other stimulant abuse, uncomplicated; F32.A Depression, unspecified; F41.9 Anxiety disorder, unspecified; M54.50 Low back pain, unspecified; F60.89 Other specific personality disorders; F60.81 Narcissistic personality disorder; K59.00 Constipation, unspecified; Z56.0 Unemployment, unspecified; Z59.00 Homelessness unspecified; Z71.51 Drug abuse counseling and surveillance of drug abuser; R19.7 Diarrhea, unspecified; R11.2 Nausea with vomiting, unspecified
CPT/HCPCS: 36415; 74018; 80053; 80061; 80164; 80305; 80320; 81003; 83036; 84402; 84443; 85025; 86703; 86803; 87081; 87491; 87522; 87635; 87811; 99285; C9803; J3490; Q0163; Q0177; Q9967